=== PATIENT | male | born 1960 | race Caucasian/White ===

== ENCOUNTER 2020-06-19 14:36 | Outpatient (REF) | payer MEDICARE, MEDICAID, SELFPAY ==
[2020-06-19 15:07] LABS: ALT 20 U/L (16-63); AST 14 U/L (15-37); Albumin 3.1 g/dL (3.4-5.0); Alkaline Phosphatase 97 U/L (46-116); Anion Gap 5.2 mmol/L (3-11); BUN 10 mg/dL (7-18); Bilirubin, Total 0.1 mg/dL (0.2-1.0); CO2 31.8 mmol/L (21.0-32.0); CREATININE 0.7 mg/dL (0.70-1.30); Calcium 8.3 mg/dL (8.5-10.1); Chloride 103 mmol/L (98-107); Glucose 166 mg/dL (74-106); Potassium 4.4 mmol/L (3.5-5.1); Sodium 140 mmol/L (136-145); Total Protein 5.8 g/dL (6.4-8.2)
[2020-06-19 15:44] LABS: Hemoglobin A1C 6.4 % (<5.7)
== END 2020-06-19 14:37 | disposition home or self-care (01) ==
LOC: NCHCN 14:36
PROVIDERS: PCP Nurse Practitioner Family; Visit Provider Nurse Practitioner Family
DX: E11.9 Type 2 diabetes mellitus without complications (principal); I10 Essential (primary) hypertension
CPT/HCPCS: 80053; 83036

== ENCOUNTER 2020-06-21 08:24 | Outpatient (CLI) | payer MEDICARE, MEDICAID, SELFPAY ==
[2020-06-22 14:05] LABS: COVID-19 RT-PCR UVMMC Result Negative (Negative)
== END 2020-06-21 08:25 | disposition home or self-care (01) ==
PROVIDERS: PCP Nurse Practitioner Family; Visit Provider Nurse Practitioner Family
DX: Z20.822 Contact with and (suspected) exposure to COVID-19 (principal)
CPT/HCPCS: U0003; U0005

== ENCOUNTER 2020-06-21 14:22 | Outpatient (REF) | payer MEDICARE, MEDICAID, SELFPAY ==
[2020-06-21 16:07] LABS: Cholesterol 192 mg/dL (<200); HDL Cholesterol 33 mg/dL (40-60); Triglyceride 425 mg/dL (<150)
[2020-06-21 16:11] LABS: Bilirubin Negative (Negative); Blood Negative (Negative); Clarity Clear (Clear); Glucose Negative (Negative); Ketones Negative (Negative); Leukocyte Esterase Negative (Negative); Nitrite Negative (Negative); Urobilinogen 0.2 EU/dL (Up TO 0.2)
[2020-06-21 16:38] LABS: LDL CHOLESTEROL 117 mg/dL (<100)
[2020-06-21 18:24] LABS: Microalb ug/mg Crea 17.3 ug/mg Cr
== END 2020-06-21 14:23 | disposition home or self-care (01) ==
LOC: NCHCN 14:22
PROVIDERS: PCP Nurse Practitioner Family; Visit Provider Nurse Practitioner Family
DX: I10 Essential (primary) hypertension (principal); E78.5 Hyperlipidemia, unspecified; N39.46 Mixed incontinence
CPT/HCPCS: 80061; 83721; 81003; 82043; 82570

== ENCOUNTER 2020-07-31 08:04 | Observation (INO) | payer MEDICARE, MEDICAID, SELFPAY ==
[2020-07-31] VITALS (11 sets, daily range): BP systolic 138–213; BP diastolic 77–109; PULSE 60–99; RESP 14–18; TEMP 36.9–37.1; O2SAT 86–93
--- NOTE | 2020-07-31 08:15 | DI.CT_ITS ---
Exam(s) CT HEAD WO EXAM: CT HEAD WO CLINICAL HISTORY: ams. TECHNIQUE: Imaging Protocol: Axial computed tomography images with coronal and sagittal reformatted images were created and reviewed COMPARISON: No exams were available for comparison FINDINGS: There are no skull fractures nor fluid in the visualized paranasal sinuses. There is no evidence of intracranial hemorrhage, mass effect, or shift of midline structures. There are no extra-axial fluid collections. The ventricles are not enlarged or shifted and there is no blo od within the ventricular system nor within the basal cisterns. There is mural calcification in the right vertebral artery at the skull base. Also within the intrac avernous internal carotid arteries bilaterally. All of the intracranial arteries appears somewhat hy perdense. No obvious aneurysms IMPRESSION: No acute intracranial findings on this noninfused CT scan of the brain. Vascular calcifications the skull base as described above. Also hyperdense arteries in the brain, po ssibly within normal limits. Clinically indicated follow-up MRI/brain MRA can be performed. RADIATION DOSE DELIVERED: 923.01mGy.cm Total DLP DATA REPOSITORY: All CT scans at this facility are submitted to the National Radiology Data Registry (NRDR) Dose Index Registry (DIR) with the [employer] (A[employer]). RADIATION OPTIMIZATION: All CT scans at this facility use at least one of these dose optimization te chniques: automated exposure control; mA and/or kV adjustment per patient size (includes targeted exa ms where dose is matched to clinical indication); or iterative reconstruction.
--- NOTE | 2020-07-31 08:17 | W.ED.GENAD ---
Discharge Plan Disposition Patient Disposition: STILL A PATIENT Condition: Serious Discharge Details Clinical Impression: Suicidal ideations, Hallucinations, Hypertension Primary Care Provider: Sun Mobley ED Provider: Barrington Georges Home Meds and New Rx's Prescriptions: No Action simvastatin 20 mg tablet 20 mg PO DAILY RF: 0 lisinopril 10 mg tablet 20 mg PO DAILY RF: 0 cholecalciferol (vitamin D3) 25 mcg (1,000 unit) tablet 25 mcg PO DAILY RF: 0 Viibryd 10 mg tablet 40 mg PO DAILY RF: 0 oxybutynin chloride 5 mg Tablet 30 mg PO DAILY RF: 0 metformin 500 mg Tablet 500 mg PO BID RF: 0 hydrocortisone 1 % Cream 1 applic topical BID RF: 0 albuterol sulfate 90 mcg/actuation Hfa Aerosol Inhaler 2 puff INHALATION PRN PRNRF: 0 aripiprazole [Abilify] 2 mg Tablet 2 mg PO DAILY RF: 0 Medical Decision Making <LISA Carter - Last Filed: 07/31/20 15:18> 60-year-old gentleman, unknown to our facility, the pathological history of schizophrenia, hypertension, COPD, noncompliance since November presents with paranoia, hallucinations, vague suicidal ideations. Currently he has no acute concerns or complaints. Blood pressure upon arrival is quite hypertensive but he denies any chest pain, shortness of breath, headache, visual changes. He is agreeable to taking his oral lisinopril. Will give oral lisinopril, obtain CT imaging of his head, and obtain laboratory values for medical screening evaluation. Patient is currently agreeable to this plan cooperative. I have ordered CPSO, mental health evaluation, and safety plan while he is here in the ER. O2 sats were noted to be 88%, I do not know his baseline. He appears to be in no respiratory distress whatsoever and when instructed to take a deep breath his O2 sats did go to 92% on room air. Repeat blood pressures reveal his blood pressure is trending downward nicely at 161/90. CT imaging of his head read by radiology as nothing acute. Laboratory values are unremarkable for obvious emergent process, nothing that would inhibit a psychiatric evaluation. Covid is negative Mental health evaluation completed, given he lacks capacity for insight, mental health feels as though he needs to be emergency search for inpatient placement. In the [facility] I am unable to complete an emergency involuntary psychiatric form and thus I have discussed the case with Dr. Shepherd so she can be involved in the emergency certification process. Please see her note. Because the patient will be in a voluntary, he will remain in the ER for at least 48 hours before he can then be admitted to our facility while placement is being obtained. At 1430 I was made aware of the patient would like to leave. I went into exam room 5 and talked with the patient. He initially stated that he did not want any oral medications, he wanted to leave and simply live his life. I tried to verbally de-escalate the situation. Explained to him that after his mental health evaluation the plan was to help get him mental health care. He understands it is now agreeable to oral medications. I am unaware of any allergies that the patient may have. I will order oral Zyprexa 10 mg as well as 2 mg p.o. Ativan. Patient took these medications without difficulty Medical Records Medical records narrative: No previous records available. Imaging Data Radiologic Study: Attestation: I personally reviewed and interpreted this imaging study as follows: Imaging: CT Scan Radiologist's impression: Head CT. [No acute intracranial findings on this noninfused CT scan of the brain.] ? [Vascular calcifications the skull base as described above. Also hyperdense arteries in the brain, possibly within normal limits. Clinically indicated follow-up MRI/brain MRA can be performed] Lab Data Lab results reviewed: Yes I reviewed the patient's lab results. Labs: Laboratory Tests Range/Units 07/31/20 07/31/20 07/31/20 08:45 08:45 08:45 WBC (4.4-10.8) 10^3/uL 9.24 RBC (4.36-5.78) 10^6/uL 5.84 H Hgb (13.5-17.5) g/dL 16.9 Hct (40.0-50.0) % 50.8 H MCV (80-95) fL 87.0 MCH (27.0-33.0) pg 28.9 MCHC (32.0-36.0) % 33.3 RDW (11.8-14.1) % 12.8 Plt Count (130-400) 10^3/uL 324 MPV (8.0-11.0) fL 9.5 Immature Gran % 0.3 Neutrophils % 66.5 Lymphocytes % 22.2 Monocytes % 8.9 Eosinophils % 1.8 Basophils % 0.3 Nucleated RBC % % 0 Absolute Neutrophils (1.2-6.7) 10^3/uL 6.14 Absolute Lymphocytes (1.2-3.4) 10^3/uL 2.05 Absolute Monocytes (0.1-0.8) 10^3/uL 0.82 H Absolute Eosinophils (0.0-0.7) 10^3/uL 0.17 Absolute Basophils (0.0-0.2) 10^3/uL 0.03 Sodium (136-145) mmol/L 139 Potassium (3.5-5.1) mmol/L 3.5 Chloride (98-107) mmol/L 101 Carbon Dioxide (21.0-32.0) mmol/L 30.3 Anion Gap (3-11) mmol/L 7.7 BUN (7-18) mg/dL 7 Creatinine (0.70-1.30) mg/dL 0.9 Estimated GFR/1.73 m2 (mL/min/1.73m2) >= 60.00 Glucose (74-106) mg/dL 156 H Calcium (8.5-10.1) mg/dL 9.3 Total Bilirubin (0.2-1.0) mg/dL 0.6 AST (15-37) U/L 18 ALT (16-63) U/L 25 Alkaline Phosphatase (46-116) U/L 112 Total Protein (6.4-8.2) g/dL 7.5 Albumin (3.4-5.0) g/dL 3.8 TSH (0.36-3.74) uIU/mL 0.80 Urine Color (Yellow) Urine Clarity (Clear) Urine pH (5-8) Ur Specific [place] (1.005-1.025) Urine Protein (Negative) mg/dL Urine Ketones (Negative) mg/dL Urine Blood (Negative) Urine Nitrite (Negative) Urine Bilirubin (Negative) Urine Urobilinogen (Up TO 0.2) EU/dL Ur Leukocyte Esterase (Negative) Urine Glucose (Negative) mg/dL Salicylates (<2.8) mg/dL < 2.8 Urine Opiates Screen (Negative) Urine Methadone Screen (Negative) Acetaminophen (10-30) ug/mL < 2 Ur Barbiturates Screen (Negative) Ur Tricyclics Screen (Negative) Ur Amphetamines Screen (Negative) U Benzodiazepines Scrn (Negative) Urine Cocaine Screen (Negative) Ur THC Screen (Negative) Ethyl Alcohol (<3) mg/dL < 3.0 COVID-19 Source SARS-CoV-2 (PCR) (Negative) Range/Units 07/31/20 07/31/20 07/31/20 08:50 09:38 09:38 WBC (4.4-10.8) 10^3/uL RBC (4.36-5.78) 10^6/uL Hgb (13.5-17.5) g/dL Hct (40.0-50.0) % MCV (80-95) fL MCH (27.0-33.0) pg MCHC (32.0-36.0) % RDW (11.8-14.1) % Plt Count (130-400) 10^3/uL MPV (8.0-11.0) fL Immature Gran % Neutrophils % Lymphocytes % Monocytes % Eosinophils % Basophils % Nucleated RBC % % Absolute Neutrophils (1.2-6.7) 10^3/uL Absolute Lymphocytes (1.2-3.4) 10^3/uL Absolute Monocytes (0.1-0.8) 10^3/uL Absolute Eosinophils (0.0-0.7) 10^3/uL Absolute Basophils (0.0-0.2) 10^3/uL Sodium (136-145) mmol/L Potassium (3.5-5.1) mmol/L Chloride (98-107) mmol/L Carbon Dioxide (21.0-32.0) mmol/L Anion Gap (3-11) mmol/L BUN (7-18) mg/dL Creatinine (0.70-1.30) mg/dL Estimated GFR/1.73 m2 (mL/min/1.73m2) Glucose (74-106) mg/dL Calcium (8.5-10.1) mg/dL Total Bilirubin (0.2-1.0) mg/dL AST (15-37) U/L ALT (16-63) U/L Alkaline Phosphatase (46-116) U/L Total Protein (6.4-8.2) g/dL Albumin (3.4-5.0) g/dL TSH (0.36-3.74) uIU/mL Urine Color (Yellow) Yellow Urine Clarity (Clear) Clear Urine pH (5-8) 6.0 Ur Specific [place] (1.005-1.025) 1.020 Urine Protein (Negative) mg/dL Negative Urine Ketones (Negative) mg/dL Negative Urine Blood (Negative) Negative Urine Nitrite (Negative) Negative Urine Bilirubin (Negative) Negative Urine Urobilinogen (Up TO 0.2) EU/dL 1.0 H Ur Leukocyte Esterase (Negative) Negative Urine Glucose (Negative) mg/dL Negative Salicylates (<2.8) mg/dL Urine Opiates Screen (Negative) Negative Urine Methadone Screen (Negative) Negative Acetaminophen (10-30) ug/mL Ur Barbiturates Screen (Negative) Negative Ur Tricyclics Screen (Negative) Negative Ur Amphetamines Screen (Negative) Negative U Benzodiazepines Scrn (Negative) Negative Urine Cocaine Screen (Negative) Negative Ur THC Screen (Negative) Negative Ethyl Alcohol (<3) mg/dL COVID-19 Source Nasal/nares SARS-CoV-2 (PCR) (Negative) Negative <LISA Madrigal - Last Filed: 08/01/20 14:56> Care transition myself and Nikolas Manriquez PA-C. Please see his initial note regarding history, presentation and exam. In brief, patient is a 60-year-old gentleman who presented today with concern for hallucinations. These hallucinations were deemed to be unsafe and borderline suicidal. Patient was evaluated by mental health. They do not feel that patient is safe to be discharged home as he is speaking about jumping off of things and has a poor grasp on reality. Patient was given Ativan and Zyprexa. On the time I assume care, disposition pending Mental health reevaluated the patient. Psychiatrist advises Involuntary admission for safety reasons as well as suicidal ideation. Patient has been sleeping since assumption of care. At the end of my shift, care transitioned to Dr. Georges. Disposition pending. Resting comfortably. <Barrington Georges MD - Last Filed: 08/03/20 11:09> pt currently involuntary for decompensated schizophrenia awaiting placement. Currently sleeping but awakens easily no complaints currently, will continue to monitor until placement found pt slept most of the shift, did get up and walk around with steady gait. Vitals reviewed and is noted to have oxygen saturations in the high 80's most of the time, denies dyspnea or chest pain and is in no visible distress, is a chronic smoker so suspect copd. Nursing notes that on prior psych notes he has had home oxygen unclear how long he has been without this. patient remains stable, no complaints currently, was offered J and J vaccine and agrees to this. Unable to admit upstairs due to holding area already full, if a patient is transferred Nathan may be able to be admitted here until psych placement found. ECG Data Attestation: I personally reviewed and interpreted this ECG (s) as follows: Prior ECG tracings: not available for review Interpretation[facility], patient without dyspnea or chest pain sinus rhythm, rate of 65, right bundle branch block, no acute st elevations <Edward Macias, - Last Filed: 08/01/20 11:29> Patient was signed out to me by my colleague Barrington Georges pending reassessment by mental health and potential placement. Please refer to the patient's HPI, physical exam and assessment and plan. At time of signout it was noted that while the patient was sleeping at night he was slightly hypoxic in the 80s. He was placed on supplemental oxygen. The patient denies any shortness of breath or chest pain whatsoever. No cough or fever or chills. I did get a chest x-ray this morning and it is normal, additionally I got a VBG and this is also normal, pH normal, PCO2 level normal. When oxygen is off and the patient is awake the patient is at 88%. We did offer supplemental oxygen here again while the patient was awake and he refused it. Stating specifically that he does not want any extra oxygen or to be wakeful. He has used oxygen intermittently in the past, however he states that he is turned all of this equipment him and does not want any more currently. He shows no signs of hypercarbic encephalopathy clinically or on laboratory assessment. We did give the patient a breathing treatment but he is notably disinterested in this, and did not want to utilize it as he states he does not feel short of breath at all. I suspect the patient's low oxygen is his chronic baseline, and certainly not an example of an acute etiology. It is also not the cause of the patient's current psychiatric admission here. At this time patient remains medically stable, and does not show current clinical indication for emergent airway management, additionally the patient has refused other interventions and appears to demonstrate notable clear decision-making capabilities currently in regards to this topic specifically. FINDINGS: Limited exam due to patient body habitus, technique and poor pulmonary inflation.? The heart size is within normal limits.? The aorta is tortuous.? There is calcification at the aortic arch.? No area of consolidation or effusion is seen.? There is no? pneumothorax. IMPRESSION: Limited exam.? No acute pulmonary findings. <Kori Salazar DO - Last Filed: 08/02/20 20:33> 08/01/20 1500 --Case endorsed to continue to monitor while waiting placement. Likely no plans for placement today. 1830 --patient evaluated by Tanna at bedside and patient is still delusional. He has been cooperative. Andrez called requesting referral paperwork. 2300 --case endorsed to Dr. Soriano to continue to monitor overnight. 08/02/20 1500 --Case endorsed to continue to monitor while awaiting placement. Patient not admitted to the floor today as bed availability was minimal. 1700 --pt admitted to some anxiety. A dose of ativan and zyprexa ordered. 1900 --discussed with nursing kosher dietary service supervisor whether patient can be admitted to the floor as he has been here for approximately 58 hours without any incident. There is availability on the floor but as the ED is not busy at this time and there is another psychiatric patient on the floor with concern for potential interaction with another psychiatric patient, it was thought that it is best to keep pt in the ED at this time. Medical Records Medical records reviewed: Yes I reviewed the patient's medical records. <Nikolay Soriano MD - Last Filed: 08/03/20 06:54> Assumed care of the patient for the night monitor of August 01-. He remains calm and interactive with staff. Awaits final psychiatric disposition. I again assumed care of the patient for the evening shift of August 02-. He remained calm and interactive with staff overnight, continues to await final disposition. HPI <LISA Carter - Last Filed: 07/31/20 15:18> General Mode of arrival: ambulatory. Date/Time Provider Initiated Documentation: 07/31/20 08:16. Limitations to Documentation: no limitations. Information obtained by: patient. HPI Narrative: This is a 60-year-old male, past medical history that includes schizophrenia, hypertension, COPD presenting to the ER for evaluation. Patient is a poor historian and HPI is difficult to obtain. Of the HPI was obtained through Denae Gong because she owns the facility that the patient resides. Patient has been at the [facility] for approximately 1-1/2 months. She has noticed increasing abnormal behavior, visual and auditory hallucinations, believing that he is living under water, has recently been on a plane, and a plane was landing near his new facility. He has been talking about trying to fly off the [facility]. Patient admits to vague suicidal ideation but does not have a specific plan. He denies feeling homicidal. Denies any alcohol or drug use. Is a former smoker. Denies recent illness or trauma. Has no medical concerns or complaints at this time. He denies any headache, visual changes, neck pain, chest pain, shortness of breath, abdominal pain, nausea, vomiting, change in appetite, numbness, tingling, weakness. Apparently he has been noncompliant with all of his medications since sometime in November. Related Data Home Medications Medication Instructions Recorded Confirmed cholecalciferol (vitamin D3) 25 mcg PO DAILY 07/31/20 08/01/20 lisinopril 20 mg PO DAILY 07/31/20 08/01/20 simvastatin 20 mg PO DAILY 07/31/20 07/31/20 vilazodone [Viibryd] 40 mg PO DAILY 07/31/20 08/01/20 albuterol sulfate 2 puff INHALATION PRN PRN 08/01/20 08/01/20 aripiprazole [Abilify] 2 mg PO DAILY 08/01/20 08/01/20 hydrocortisone 1 applic TOPICAL BID 08/01/20 08/01/20 metformin 500 mg PO BID 08/01/20 08/01/20 oxybutynin chloride 30 mg PO DAILY 08/01/20 08/01/20 Allergies Allergy/AdvReac Type Severity Reaction Status Date / Time No Known Allergies Allergy Unverified 07/31/20 08:29 Review of Systems <LISA Carter - Last Filed: 07/31/20 15:18> Constitutional Constitutional: Denies fatigue, Denies fever(s), Denies headache(s) and Denies weakness Eyes Eyes: Denies change in vision ENT Ears, Nose, Mouth, and Throat: Denies headache(s) and Denies neck pain Cardiovascular Cardiovascular: Denies chest pain and Denies dyspnea Respiratory Respiratory: Denies cough and Denies dyspnea Gastrointestinal Gastrointestinal: Denies abdominal pain, Denies nausea and Denies vomiting Genitourinary Genitourinary: Denies dysuria Musculoskeletal Musculoskeletal: Denies back pain, Denies neck pain, Denies numbness and Denies tingling Integumentary/Breasts Skin/Breast: Denies rash Neurologic Neurologic: Denies headache(s), Denies numbness, Denies tingling and Denies weakness Psychiatric Psychiatric: Reports depression, Denies homicidal ideation and Reports suicidal ideation Endocrine Endocrine: Denies fatigue PFS <LISA Carter - Last Filed: 07/31/20 15:18> Medical History (Updated 08/01/20 @ 16:51 by Kori Salazar DO) HTN (hypertension) Schizophrenia Social History Smoking/Tobacco Use Status: Former Tobacco Use Smoking risk assessment performed?: Yes Alcohol Intake: former Drug use: Never Substance use type: does not use Do you feel safe at home: No (hallucinating re dying) Do you feel safe in your relationship?: Yes Exam <LISA Carter - Last Filed: 07/31/20 15:18> Const General: cooperative, healthy appearing and comfortable Orientation: alert, awake, oriented to person and oriented to place [facility] Head: normal to inspection, normocephalic and atraumatic General nose exam: external nose normal Face and sinus: normal facial exam Mouth: oral mucosae normal and moist mucous membranes Throat: posterior oropharynx normal Eyes General: appearance normal, both eyes and all related structures Alignment and Position: alignment normal Periorbital: periorbital findings normal Eyelids: eyelids normal Conjunctivae: conjunctivae normal Sclera: sclerae normal Cornea: corneas normal Pupils: PERRL EOM: EOM intact bilaterally Direct ophthalmoscopy: normal light reflex Neck Neck: normal visual inspection, full ROM, no meningeal signs, trachea midline, supple and nontender Resp Effort & Inspection: normal respiratory effort and able to speak in complete sentences Auscultation: clear to auscultation bilaterally Cardio Rate: regular rate Rhythm: regular rhythm GI Inspection: obesity Palpation: soft and nontender Back/Spine/Pelvis Back: No back tenderness Skin Rashes: no rashes Neuro General: patient alert, patient awake, oriented Patient Orientation: Person and Place, moves all extremities and no focal motor deficits Cranial Nerves: CN's II-XI intact bilaterally Cognition: abnormal cognition (Active visual hallucinations) Speech: speech normal Gait: normal gait Motor: muscle tone normal throughout Sensory Exam: no sensory deficits noted Extrem General: full ROM, capillary refill normal, no pedal edema and no calf tenderness Psych Appearance: grossly normal Mental Status: mental status grossly normal Speech and Movement: delayed speech Mood: paranoid Affect: blunted Attitude: cooperative Thought Process: perseverating (About planes and flying) Thought Content: hallucinations visual and suicidality (Vague, no plan) Insight: limited Judgment: limited Sign Out <LISA Carter - Last Filed: 07/31/20 15:18> Sign Out Data: Sign Out Comment: Noncompliant with medications since November. Resident at the [facility] for approximately 1-1/2 months, steadily declining, worse over the past few days. Both visual and auditory hallucinations, vague SI without a plan. Patient is an involuntary psychiatric placement. Took 2 mg p.o. Ativan and 10 of Zyprexa. Last updated by Konrad Manriquez PA at 07/31/20 15:19 Sign Out Comment: Care transitioned to Dr. Georges with disposition pending. Patient received zyprexa and ativan this afternoon. Has been sleeping. Referrals have been sent. Last updated by Mallika Bravo PA at 07/31/20 23:17 Sign Out Comment: schizophrenia history and noncompliant with meds since Nov, resident at [facility] for abouta month and steadily declining. Has visual and auditory hallucinations along with SI. Involuntary pending placement Last updated by Barrington Georges MD at 08/01/20 00:31 Sign Out Comment: Schizophrenia history, steadily declining, visual and auditory hallucinations with suicidal ideation. Currently involuntary psychiatric placement. Was stable throughout the day. Does have chronic mild hypoxemia. Currently medically stable. Chronically has refused oxygen, and does not want this going forward. VBG unremarkable, chest x-ray unremarkable. Currently medically stable, and appropriate for psychiatric facility disposition when available. Last updated by Edward Macias DO at 08/01/20 14:07 Sign Out Comment: Evaluated by mental health this evening. Remains delusional but has been cooperative. Pending psychiatric placement. Last updated by Kori Salazar DO at 08/01/20 22:41 Sign Out Comment: EE, awaits placement Last updated by Nikolay Soriano MD at 08/02/20 07:15 Sign Out Comment: Patient stable throughout the evening, patient also stable throughout the day. No complications, reassessed by mental health. Still pending placement. Last updated by Edward Macias DO at 08/02/20 15:22 Sign Out Comment: Holding in the ED at this time while awaiting placement. If ED bed availability becomes limited, can consider admission to the floor. Last updated by Kori Salazar DO at 08/02/20 21:48 Sign Out Comment: Awaits placement, may consider admission to floor today Last updated by Nikolay Soriano MD at 08/03/20 06:53 Sign Out Comment: Involuntary for decompensated schizophrenia and SI, awaiting placement. Check with nursing kosher dietary service supervisor later if psychiatric patient upstairs is transferred this patient may be able to be admitted. Last updated by Barrington Georges MD at 08/03/20 11:08
[2020-07-31] MEDS: Lisinopril 10 MG TAB PO (08:54)
[2020-07-31 09:11] LABS: Source Nasal/Nares
[2020-07-31 09:14] LABS: Abs Immature Grans 0.03 10^3/uL (0.0-0.06); Absolute Basophil Count 0.03 10^3/uL (0.0-0.2); Absolute Eosinophil Count 0.17 10^3/uL (0.0-0.7); Absolute Lymphocyte Count 2.05 10^3/uL (1.2-3.4); Absolute Monocyte Count 0.82 10^3/uL (0.1-0.8); Absolute Neutrophil Count 6.14 10^3/uL (1.2-6.7); Basophils % 0.3; Eosinophils % 1.8; HCT 50.8 % (40.0-50.0); HGB 16.9 g/dL (13.5-17.5); Immature Grans % 0.3; Lymphocytes % 22.2; MCH 28.9 pg (27.0-33.0); MCHC 33.3 % (32.0-36.0); MPV 9.5 fL (8.0-11.0); Monocytes % 8.9; Neutrophils % 66.5; Nucleated RBC 0 %; Platelet Count 324 10^3/uL (130-400); RBC 5.84 10^6/uL (4.36-5.78); RDW 12.8 % (11.8-14.1); RDW-SD 40.5 fL; WBC 9.24 10^3/uL (4.4-10.8)
[2020-07-31 09:40] LABS: ALT 25 U/L (16-63); AST 18 U/L (15-37); Albumin 3.8 g/dL (3.4-5.0); Alkaline Phosphatase 112 U/L (46-116); Anion Gap 7.7 mmol/L (3-11); BUN 7 mg/dL (7-18); Bilirubin, Total 0.6 mg/dL (0.2-1.0); CO2 30.3 mmol/L (21.0-32.0); CREATININE 0.9 mg/dL (0.70-1.30); Calcium 9.3 mg/dL (8.5-10.1); Chloride 101 mmol/L (98-107); Glucose 156 mg/dL (74-106); Potassium 3.5 mmol/L (3.5-5.1); Sodium 139 mmol/L (136-145); Total Protein 7.5 g/dL (6.4-8.2)
[2020-07-31 09:47] LABS: Bilirubin Negative (Negative); Blood Negative (Negative); Clarity Clear (Clear); Glucose Negative (Negative); Ketones Negative (Negative); Leukocyte Esterase Negative (Negative); Nitrite Negative (Negative)
[2020-07-31 09:52] LABS: ETHANOL BLOOD < 3.0 mg/dL (<3)
[2020-07-31 10:04] LABS: COVID-19 PCR Negative (Negative)
[2020-07-31 10:07] LABS: *AMPHETAMINES SCREEN URINE Negative (Negative); *BARBITURATES SCREEN URINE Negative (Negative); *BENZODIAZEPINES SCREEN URINE Negative (Negative); Cannabinoids THC Negative (Negative); Cocaine Screen,Urine Negative (Negative); METHADONE URINE SCREEN Negative (Negative); OPIATES URINE SCREEN Negative (Negative)
[2020-07-31 10:13] LABS: Tricyclic Antidepressants Negative (Negative)
[2020-07-31 10:20] LABS: Salicylate < 2.8 mg/dL (<2.8)
[2020-07-31 10:44] LABS: Acetaminophen < 2 ug/mL (10-30)
--- NOTE | 2020-07-31 12:14 | NUR.NOTE ---
Mental health arrived in room to examine patient. Nursing Note:
--- NOTE | 2020-07-31 13:15 | PDOC.MHCN_ITS ---
Date of service: 07/31/20 Time of Service: 12:20 Mental Health Crisis Note Presenting Issue How did you arrive at the ED and why did you come: Client was brought to [facility] ER by June [employer] [facility] [employer] [facility] staff due to concerns of delusions as well as auditory and visual hallucinations Precipitating Factors There are evidence of delusion present at this time. It is unclear if client is having SI or HI at this time. Client was unable to answer this question due to current mental state Disposition BEHAVIOR: Client presented as calm but struggled to get his words out. Client was also unable to make coherent and logical sentences. EYE CONTACT: Client maintained good eye contact MOOD: Client presented with anxious mood AFFECT: Client presented with flat affect APPETITE: Unable to access due to client's current presentation SLEEP(trouble falling/staying asleep: Unable to access due to client's current presentation Plan This clinician was unable do a through assessment due to client current presentation and mental state. Client will need to be reassessed by [facility]. Signature Clinician's Name/Title: Khushboo Bolaños / Emergency Services Clinician
--- NOTE | 2020-07-31 13:25 | CMSP_ITS ---
- If Service Date Differs Date of service: 07/31/20 Time of Service: 13:25 Care Management Safety Plan Status: Involuntary INVOLUNTARY FOR INPATIENT PSYCHIATRIC STABILIZATION. Safety plan has been established to meet the needs of the patient, and consideration of the care team, to adhere to patient goals, identify restrictions based on behavioral status, address nutrition, and determine allowed personal belongings, tools for hygiene and personal care. Determine level of activity including ambulation, level of supervision, visitors, and determine privileges based on behaviors and level of engagement by pt. A huddle is held at approximately 3:00 pm with Morenita, nursing supervisor insecticide, Konrad, ED provider, Opal, charge nurse, Jeanie, RN, Rajwinder, [facility], and SHELL Turner. SAFETY PLAN: 1. Will remain on SI/HI precautions. In Paper Clothes 2. Will remain in room under direct supervision of one-on-one staff at all times provided by CPSO, RASHIDA, COLLEGE TEACHER director corporate sales. 3. May have paper cups, plates, finger foods as well as a cardboard spoon with which to eat meals. 4. Follow [facility] Management of the Admitted Behavioral Health Patient policy. 5. Comfort bath system only. 6. No personal belongings. 7. Visitors: No visitors. 8. Activities: Coloring book, crayons, and other activities at RN discretion. No music tablet or television permitted at this time due to patient's persecutory delusions, hallucinations, and paranoia. 9. Bathroom privileges with escort. 10. Phone: None at this time. 11. Due to INVOLUNTARY status, patient is being held at [facility] by the Department of Mental Health ([facility]) until 2nd certification by [facility] Psychiatrist can be performed (within 24 hours). Staff will provide de-escalation support (CPI) as needed. If patient wishes to leave [facility], staff will contact [facility] Crisis Screener ([phone]) and On-Call Residency Program Coordinator ([phone]) as soon as possible. In the event of elopement, notify [place] State Police ([phone]). Patient is currently involuntarily at [facility]. [facility] Frontline Senior Clinical Data Manager will continue seeking placement. Please contact the Press Setter Residency Program Coordinator ([phone]) for any needed changes to Safety Plan. Safety plan has been provided to interdepartmental care team. Patient will be transported by tank wagon driver at time of discharge.
--- NOTE | 2020-07-31 13:25 | PDOC.CMSAFED ---
- If Service Date Differs Date of service: 07/31/20 Time of Service: 13:25 Care Management Safety Plan Status: Involuntary INVOLUNTARY FOR INPATIENT PSYCHIATRIC STABILIZATION. Safety plan has been established to meet the needs of the patient, and consideration of the care team, to adhere to patient goals, identify restrictions based on behavioral status, address nutrition, and determine allowed personal belongings, tools for hygiene and personal care. Determine level of activity including ambulation, level of supervision, visitors, and determine privileges based on behaviors and level of engagement by pt. A huddle is held at approximately 3:00 pm with Morenita, nursing supervisor meter repair shop, Konrad, ED provider, Opal, charge nurse, Jeanie, RN, Rajwinder, [facility], and SHELL Turner. SAFETY PLAN: 1. Will remain on SI/HI precautions. In Paper Clothes 2. Will remain in room under direct supervision of one-on-one staff at all times provided by CPSO, RASHIDA, PANTS MAKER preparation supervisor freezing. 3. May have paper cups, plates, finger foods as well as a cardboard spoon with which to eat meals. 4. Follow [facility] Management of the Admitted Behavioral Health Patient policy. 5. Comfort bath system only. 6. No personal belongings. 7. Visitors: No visitors. 8. Activities: Coloring book, crayons, and other activities at RN discretion. No music tablet or television permitted at this time due to patient's persecutory delusions, hallucinations, and paranoia. 9. Bathroom privileges with escort. 10. Phone: None at this time. 11. Due to INVOLUNTARY status, patient is being held at [facility] by the Department of Mental Health ([facility]) until 2nd certification by [facility] Psychiatrist can be performed (within 24 hours). Staff will provide de-escalation support (CPI) as needed. If patient wishes to leave [facility], staff will contact [facility] Crisis Screener ([phone]) and On-Call Farmworker Dairy ([phone]) as soon as possible. In the event of elopement, notify [place] State Police ([phone]). Patient is currently involuntarily at [facility]. [facility] Frontline Occupational Therapy Department Chair will continue seeking placement. Please contact the Western Felt Hat Blocker Farmworker Dairy ([phone]) for any needed changes to Safety Plan. Safety plan has been provided to interdepartmental care team. Patient will be transported by civil division deputy sheriff at time of discharge.
[2020-07-31] MEDS: LORazepam 1 MG TAB PO ×2 (14:46→14:57)
[2020-07-31] MEDS: OLANZapine 10 MG TAB PO (14:57)
--- NOTE | 2020-07-31 15:09 | PDOC.MHCN ---
<Olimpia Wm - Last Filed: 07/31/20 15:28> Date of service: 07/31/20 Time of Service: 14:10 Mental Health Crisis Note <Olimpia Gomezdeonan - Last Filed: 07/31/20 15:28> Presenting Issue How did you arrive at the ED and why did you come: Client was brought to the ED by staff of [facility] after concerning behaviors and reported hallucinations. Client had been found to have pills stashed in his pocket and had been wandering the 3rd floor balcony reporting to staff I need to fly away and make this stop Precipitating Factors When asked about or HI, client reports It's too late for that, there are no roads to go on. Client is delusional and reports that he arrived at the ED after staff told him it was time to head out on a plane. Client reports that he thinks we are in [place] and they are going to kill us all. Disposition BEHAVIOR: Client is cooperative when speaking with this advertising copywriter. EYE CONTACT: Client makes minimal eye contact with this advertising copywriter, but looks at another staff member in the room when answering this writers questions. MOOD: Client mood is depressed AFFECT: Clients affect is flat, but at times becomes tearful. APPETITE: Client reported last night to this advertising copywriter that he had a poor appetite. SLEEP(trouble falling/staying asleep: Staff at [facility] reported that client did not sleep all night. Plan Client is unwilling to accept voluntary treatment, this advertising copywriter wrote an EE due to clients poor insight and judgement. Client will remain on EE status at [facility] until second cert is done. Hospitals will be called to find placement. [facility] was notified of clients status. Signature Clinician's Name/Title: Olimpia Burk [facility] Emergency Clinician
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
--- NOTE | 2020-07-31 21:13 | NUR.NOTE ---
Nursing Note: i asked if he need to go to bathroom when he woke up and sat on edge of bed ne said no next thing i know he was peeing on floor
[2020-08-01] VITALS (8 sets, daily range): BP systolic 114–126; BP diastolic 69–76; PULSE 47–83; RESP 1–20; TEMP 36.6–37.2; O2SAT 77–96
[2020-08-01] MEDS: Acetaminophen 500 MG TAB 1000 MG PO (04:18)
--- NOTE | 2020-08-01 04:21 | NUR.NOTE ---
0420 patient to shower with R.N.Nursing Note:
--- NOTE | 2020-08-01 04:38 | NUR.NOTE ---
5780 patient back from shower in room.Nursing Note:
--- NOTE | 2020-08-01 05:45 | RT.EKG_ITS ---
APPROVED REPORT Exam: Resting ECG Patient Location: E HR:65 bpm ECG Measurements Heart Rate 65 AXIS PA 154 P 22 QRSd 160 QRS 13 QT 414 T -49 QTc 431 Conclusion Sinus rhythm...normal P axis, V-rate 60- 99 Right bundle branch block...QRSd>120, terminal axis(90,270)
[2020-08-01] MEDS: Albuterol HFA 8 GM 60 PUFF INH IH (06:21)
--- NOTE | 2020-08-01 10:15 | DI.RAD_ITS ---
Exam(s) XR PORTABLE CHEST AP EXAM: XR PORTABLE CHEST AP CLINICAL HISTORY: mildly hypoxic. suspect chronic copd TECHNIQUE: 2D digital imaging was performed. COMPARISON: No exams were available for comparison FINDINGS: Limited exam due to patient body habitus, technique and poor pulmonary inflation. The heart size is within normal limits. The aorta is tortuous. There is calcification at the aortic arch. No area of consolidation or effusion is seen. There is no pneumothorax. IMPRESSION: Limited exam. No acute pulmonary findings. DATA REPOSITORY: RADIATION DOSE DELIVERED:
[2020-08-01] MEDS: predniSONE 40 MG, predniSONE 10 MG 50 MG PO (10:46)
[2020-08-01] MEDS: ARIPiprazole 2 MG TAB PO (10:46)
[2020-08-01 10:54] LABS: BE (Venous) 6 mmol/L (-2-3); HCO3 (Venous) 31 mmol/L (23-28); O2 Sat (Venous) 91 %; TCO2 (Venous) 27 mmol/L (24-29); pCO2 (Venous) 51 mmHg (41-51); pO2 (Venous) 60 mmHg
[2020-08-01] MEDS: Albuterol/Ipratropium 3 ML UPD VIAL 6 ML UPD (11:23)
--- NOTE | 2020-08-01 11:31 | RESPIRATORY ---
08/01/20 -Pt here in ED for Psych. I was approached by Dr. Macias stating that Pt was having desaturations down to 77%while sleeping. There was a discussion about if a Nocturnal Oximetry would be appropriate at this time to qualify him for Nocturnal O2. I explained typically, we cannot qualify a Pt for any home O2 in the ED setting as Pt's are considered not a baseline. There was a small group that gathered to discuss the next step in care for this Pt and what next steps would be appropriate . It was determined to medical clear him first. CXR, VBG & Upd's x2 was done. Pt's SPO2 was found to 87% on RA . Pt states I do not want to use oxygen as it's wasteful and doesn't work anyways. I use to have it through [facility] and turned it back in as it wasn't working. This conversation was relayed to Dr. Macias.
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
--- NOTE | 2020-08-01 14:31 | CMSP_ITS ---
- If Service Date Differs Date of service: 08/01/20 Time of Service: 14:31 Care Management Safety Plan Status: Involuntary INVOLUNTARY FOR INPATIENT PSYCHIATRIC STABILIZATION. Safety plan has been established to meet the needs of the patient, and consideration of the care team, to adhere to patient goals, identify restrictions based on behavioral status, address nutrition, and determine allowed personal belongings, tools for hygiene and personal care. Determine level of activity including ambulation, level of supervision, visitors, and determine privileges based on behaviors and level of engagement by pt. A huddle is held at approximately 1:00 pm with Morenita, nursing stitching department supervisor, Dr. Macias, ED provider, Renae, charge nurse, Marta, RN, Дмитрий, Director of ED, Rajwinder [facility], and SHELL Turner. SAFETY PLAN: 1. Will remain on SI/HI precautions. In Paper Clothes 2. Will remain in room under direct supervision of one-on-one staff at all times provided by CPSO, COOLER SERVICE SUPERVISOR, CASINO CASHIER MANAGER poultry processor. 3. May have paper cups, plates, finger foods as well as a cardboard spoon with which to eat meals. 4. Follow [facility] Management of the Admitted Behavioral Health Patient policy. 5. Personal care: May shower at RN discretion with supervision and security presence. 6. No personal belongings. 7. Visitors: No visitors. 8. Activities: Coloring book, crayons, and other activities at RN discretion. No music tablet or television permitted at this time due to patient's persecutory delusions, hallucinations, and paranoia. 9. Bathroom privileges with escort. 10. Phone: None at this time. 11. Due to INVOLUNTARY status, patient is being held at [facility] by the Department of Mental Health ([facility]) until 2nd certification by [facility] Psychiatrist can be performed (within 24 hours). Staff will provide de-escalation support (CPI) as needed. If patient wishes to leave [facility], staff will contact [facility] Crisis Screener ([phone]) and On-Call Kaiwhakahaere ([phone]) as soon as possible. In the event of elopement, notify [facility] Police ([phone]). Patient is currently involuntarily at [facility]. [facility] Frontline Candle Cutter will continue seeking placement. Please contact the Blast Furnace Supervisor Kaiwhakahaere ) for any needed changes to Safety Plan. Safety plan has been provided to interdepartmental care team. Patient will be transported by clay preparation supervisor at time of discharge.
--- NOTE | 2020-08-01 14:31 | PDOC.CMSAFED ---
- If Service Date Differs Date of service: 08/01/20 Time of Service: 14:31 Care Management Safety Plan Status: Involuntary INVOLUNTARY FOR INPATIENT PSYCHIATRIC STABILIZATION. Safety plan has been established to meet the needs of the patient, and consideration of the care team, to adhere to patient goals, identify restrictions based on behavioral status, address nutrition, and determine allowed personal belongings, tools for hygiene and personal care. Determine level of activity including ambulation, level of supervision, visitors, and determine privileges based on behaviors and level of engagement by pt. A huddle is held at approximately 1:00 pm with Morenita, nursing lift supervisor, Dr. Macias, ED provider, Renae, charge nurse, Marta, RN, Дмитрий, Director of ED, Rajwinder [facility], and SHELL Turner. SAFETY PLAN: 1. Will remain on SI/HI precautions. In Paper Clothes 2. Will remain in room under direct supervision of one-on-one staff at all times provided by CPSO, COUNSELOR CAMP, SENIOR JAVA WEB DEVELOPER skidder operator. 3. May have paper cups, plates, finger foods as well as a cardboard spoon with which to eat meals. 4. Follow [facility] Management of the Admitted Behavioral Health Patient policy. 5. Personal care: May shower at RN discretion with supervision and security presence. 6. No personal belongings. 7. Visitors: No visitors. 8. Activities: Coloring book, crayons, and other activities at RN discretion. No music tablet or television permitted at this time due to patient's persecutory delusions, hallucinations, and paranoia. 9. Bathroom privileges with escort. 10. Phone: None at this time. 11. Due to INVOLUNTARY status, patient is being held at [facility] by the Department of Mental Health ([facility]) until 2nd certification by [facility] Psychiatrist can be performed (within 24 hours). Staff will provide de-escalation support (CPI) as needed. If patient wishes to leave [facility], staff will contact [facility] Crisis Screener ([phone]) and On-Call Sole Scraper ([phone]) as soon as possible. In the event of elopement, notify [facility] Police ([phone]). Patient is currently involuntarily at [facility]. [facility] Frontline Artist'S Model will continue seeking placement. Please contact the Invasive Cardiologist Sole Scraper ([phone]) for any needed changes to Safety Plan. Safety plan has been provided to interdepartmental care team. Patient will be transported by retrieval specialist at time of discharge.
--- NOTE | 2020-08-01 15:35 | CMPROGNOTE_ITS ---
- If Service Date Differs Date of service: 08/01/20 Time of Service: 15:35 Care Management Progress Note S/O: Nathan remains at [facility] on involuntary status awaiting a psychiatric placement. He continues to be calm and cooperative but still shows signs of delusions. His O2 level reportedly saturated down into the low to mid 80s this morning. Nathan was started on O2 through a nasal cannula but he could not tolerate it and removed it from his face. CM will continue to follow. A: Nathan is a 60 year old male who presents in the ED for suicidal ideation, hallucinations, and hypertension. P: [facility] to [facility] and [facility] for review yesterday. Nathan will remain at [facility] on involuntary status while [facility] continues to seek a placement for him. CM will continue to follow.
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
[2020-08-02 05:39] VITALS: BP 109/66; PULSE 61; RESP 18; O2SAT 90
[2020-08-02 09:05] VITALS: BP 137/75; PULSE 66; RESP 16; TEMP 36.8; O2SAT 88
[2020-08-02] MEDS: Acetaminophen 500 MG TAB 1000 MG PO (09:17)
[2020-08-02] MEDS: Lisinopril 20 MG TAB PO (09:17)
[2020-08-02] MEDS: ARIPiprazole 2 MG TAB PO (09:17)
--- NOTE | 2020-08-02 09:23 | NUR.NOTE ---
Nursing Note: At the request of NICHOLAS Truong I faxed to [facility] the facesheet, 2nd cert, Med Rec, provider note, EKG, labs, CT and xray reports, MH notes and most recent life care planner note. Arielle Moreira
--- NOTE | 2020-08-02 11:37 | NUR.NOTE ---
Nursing Note: Macrina Beltran called from [facility] to say that they had the patient's belongings. This included at this time 2 bags of clothing and a walker. She is going to hold these items until she has the disposition of the patient. Arielle Moreira
--- NOTE | 2020-08-02 12:29 | PDOC.MHCN ---
Date of service: 08/02/20 Time of Service: 10:00 Mental Health Crisis Note Presenting Issue How did you arrive at the ED and why did you come: Client arrived to [facility] ED due to concerns of delusions, VH and AH. Precipitating Factors Client denied SI/HI at this time. Disposition BEHAVIOR: Client presented as engaging and alert and oriented to time and place during this assessment. EYE CONTACT: Client maintained minimal eye contact MOOD: Client presented with depressed and a slightly irritable mood. AFFECT: Client presented with flat affect APPETITE: Client reported his appetite was fine SLEEP(trouble falling/staying asleep: Client reported he had been sleeping too much because there was nothing else to do around here Plan Client will continue to await at [facility] for in-patient treatment. Referrals have been made to , [facility] and [facility] and they are all pending review and bed availability at this time. Signature Clinician's Name/Title: Khushboo Bolaños / Emergency Services Clinician
[2020-08-02] MEDS: LORazepam 1 MG TAB PO (15:45)
[2020-08-02] MEDS: OLANZapine 10 MG TAB PO (15:57)
[2020-08-02 17:24] VITALS: BP 132/69; PULSE 60; RESP 16; TEMP 36.5; O2SAT 91
--- NOTE | 2020-08-02 17:45 | PDOC.CMSAFED ---
- If Service Date Differs Date of service: 08/02/20 Time of Service: 17:45 Care Management Safety Plan Status: Involuntary INVOLUNTARY FOR INPATIENT PSYCHIATRIC STABILIZATION. Safety plan has been established to meet the needs of the patient, and consideration of the care team, to adhere to patient goals, identify restrictions based on behavioral status, address nutrition, and determine allowed personal belongings, tools for hygiene and personal care. Determine level of activity including ambulation, level of supervision, visitors, and determine privileges based on behaviors and level of engagement by pt. SAFETY PLAN: 1. Will remain on SI/HI precautions. In Paper Clothes 2. Will remain in room under direct supervision of one-on-one staff at all times provided by CPSO, BUSINESS ACCOUNT LEADER, MANAGER RESEARCH horticultural farm manager. 3. May have paper cups, plates, finger foods as well as a cardboard spoon with which to eat meals. 4. Follow [facility] Management of the Admitted Behavioral Health Patient policy. 5. Personal care: May shower at RN discretion with supervision and security presence. 6. No personal belongings. 7. Visitors: No visitors. 8. Activities: Coloring book, crayons, and other activities at RN discretion. No music tablet or television permitted at this time due to patient's persecutory delusions, hallucinations, and paranoia. 9. Bathroom privileges with escort. 10. Phone: None at this time. 11. Due to INVOLUNTARY status, patient is being held at [facility] by the Department of Mental Health ([facility]) until 2nd certification by [facility] Psychiatrist can be performed (within 24 hours). Staff will provide de-escalation support (CPI) as needed. If patient wishes to leave [facility], staff will contact [facility] Crisis Screener ([phone]) and On-Call Landscape Account Manager ([phone]) as soon as possible. In the event of elopement, notify [place] [employer] ([phone]). Patient is currently involuntarily at [facility]. [facility] Frontline Learning Specialist will continue seeking placement. Please contact the [employer] Landscape Account Manager ([phone]) for any needed changes to Safety Plan. Safety plan has been provided to interdepartmental care team. Patient will be transported by [facility] at time of discharge.
--- NOTE | 2020-08-02 17:46 | CMPROGNOTE_ITS ---
- If Service Date Differs Date of service: 08/02/20 Time of Service: 17:46 Care Management Progress Note S/O: Nathan remains at [facility] on involuntary status awaiting a psychiatric placement. He is sitting on the side of the bed eating his dinner when CM comes to meet with him. He shares with me that he was listed as a dog with the social security administration for many years. He also reports that he has three times and is back to life. Nathan talks about his experience at the [facility] 10 years ago and says he does not wish to go back there because he wasn't very nice to staff while there and has been banned. Nathan remains calm and cooperative but clearly continues to experience delusions. CM will continue to follow. A: Nathan is a 60 year old male who presents in the ED for suicidal ideation, hallucinations, and hypertension. P: Referrals were sent to [facility] and [facility] for review. Nathan will remain at [facility] on involuntary status while [facility] continues to seek a placement for him. CM will continue to follow.
--- NOTE | 2020-08-02 17:47 | NUR.NOTE ---
eating dinner and 1:1 sitter maintaining constant supervision. appears in good mood and is cooperative. speech clear and affect normal at this time
--- NOTE | 2020-08-02 20:03 | NUR.NOTE ---
report given to MICHELLE Lua
--- NOTE | 2020-08-02 20:45 | PDOC.MHCN ---
Date of service: 08/02/20 Time of Service: 20:46 Mental Health Crisis Note Presenting Issue How did you arrive at the ED and why did you come: Steven is still in ER under EE status. Precipitating Factors Clt admits to active SI with psychotic command hallucinations. Clt said that the hospital wisely is keeping cutting implements away from him. Hallucinations tell clt to get up and kill himself. Disposition BEHAVIOR: Angry toward his situation but not at people trying to help him. Clt voices frustration about being mentally ill and having those voices constantly in his head. EYE CONTACT: Steven's eye contact was good and appeared more alert. MOOD: Sullen, frustrated, and angry over his situation AFFECT: Sad APPETITE: Good SLEEP(trouble falling/staying asleep: I sleep too much Plan Cloctvaia will continue to stay on EE status because of command hallucinations telling clt to kill self. Hopefully, steven will be treated for his psychotic condition once he arrives at a psychiatric facility.
[2020-08-03 06:04] VITALS: BP 149/83; PULSE 62; RESP 20; O2SAT 88
--- NOTE | 2020-08-03 06:05 | NUR.NOTE ---
Nursing Note: patient declines shower this am. Patient requested food when tray arrives.
--- NOTE | 2020-08-03 06:59 | NUR.NOTE ---
Nursing Note: patient discussing mom, brother and dad who are all . Patient reports having two dreams where he was given the pentalty. Patient reports being a psychic. Expresses does not want to go back to [facility] because psychiatrist told him, Why are you even here? Your mom is still alive. You are a complete waste of space and nobody can help you.
[2020-08-03] MEDS: Lisinopril 20 MG TAB PO (08:45)
[2020-08-03] MEDS: ARIPiprazole 2 MG TAB PO (08:45)
--- NOTE | 2020-08-03 09:41 | PDOC.MHCN ---
Date of service: 08/03/20 Time of Service: 09:41 Mental Health Crisis Note Presenting Issue How did you arrive at the ED and why did you come: Pt was [facility] providers and was placed on EE status due to diminished mental health. Precipitating Factors Pt denied SI and HI today. Pt still presents as disrupted thoughts. Disposition BEHAVIOR: Reported by staff that he accepted oral Zyprexa yesterday. He is cooperative and reported that he is here to assess his breathing and mind. EYE CONTACT: good MOOD: depressed and tired. AFFECT: flat APPETITE: Pt reported he already ate breakfast. SLEEP(trouble falling/staying asleep: Pt was a sleep when this clinician arrived. He woke easily but wanted to go back to sleep. Plan Pt will remain on EE status and remain at [facility] pending admission. He will be assessed twice daily by [facility] who will also seek placement. Signature Clinician's Name/Title: Rajwinder Flores MS, [facility] Emergency Services Clinician, [facility]
[2020-08-03 10:57] VITALS: BP 154/95; PULSE 67; RESP 18; O2SAT 89
[2020-08-03] MEDS: LORazepam 1 MG TAB 2 MG PO (15:00)
[2020-08-03] MEDS: Acetaminophen 500 MG TAB 1000 MG PO (15:00)
--- NOTE | 2020-08-03 17:56 | PDOC.CMSAFED ---
- If Service Date Differs Date of service: 08/03/20 Time of Service: 17:56 Care Management Safety Plan Status: Involuntary INVOLUNTARY FOR INPATIENT PSYCHIATRIC STABILIZATION. Safety plan has been established to meet the needs of the patient, and consideration of the care team, to adhere to patient goals, identify restrictions based on behavioral status, address nutrition, and determine allowed personal belongings, tools for hygiene and personal care. Determine level of activity including ambulation, level of supervision, visitors, and determine privileges based on behaviors and level of engagement by pt. SAFETY PLAN: 1. Will remain on SI/HI precautions. In Paper Clothes 2. Will remain in room under direct supervision of one-on-one staff at all times provided by CPSO, METAL PATTERNMAKER APPRENTICE, MEDICAL TERMINOLOGIST senior media planner. 3. May have paper cups, plates, finger foods as well as a cardboard spoon with which to eat meals. 4. Follow [facility] Management of the Admitted Behavioral Health Patient policy. 5. Personal care: May shower at RN discretion with supervision and security presence. 6. No personal belongings. 7. Visitors: No visitors. 8. Activities: Coloring book, crayons, and other activities at RN discretion. No music tablet or television permitted at this time due to patient's persecutory delusions, hallucinations, and paranoia. 9. Bathroom privileges with escort. 10. Phone: None at this time. 11. Due to INVOLUNTARY status, patient is being held at [facility] by the Department of Mental Health ([facility]) until 2nd certification by [facility] Psychiatrist can be performed (within 24 hours). Staff will provide de-escalation support (CPI) as needed. If patient wishes to leave [facility], staff will contact [facility] Crisis Screener ([phone]) and On-Call Restaurant Worker ([phone]) as soon as possible. In the event of elopement, notify [place] [employer] ([phone]). Patient is currently involuntarily at [facility]. [facility] Frontline Academic Support Assistant will continue seeking placement. Please contact the Accounting Administrative Assistant Restaurant Worker ([phone]) for any needed changes to Safety Plan. Safety plan has been provided to interdepartmental care team. Patient will be transported by [employer] at time of discharge.
--- NOTE | 2020-08-03 17:58 | CMPROGNOTE_ITS ---
- If Service Date Differs Date of service: 08/03/20 Time of Service: 17:58 Care Management Progress Note S/O: Nathan remains at [facility] on involuntary status awaiting a psychiatric placement. He is sleeping when CM comes to meet with him. Per report, he continues to experience delusions and hallucinations. He is also reporting suicidal ideation. CM will continue to follow. A: Nathan is a 60 year old male who presents in the ED for suicidal ideation, hallucinations, and hypertension. P: Referrals were sent to [facility], [facility], [facility], and [facility] for review. [facility] has declined Nathan, [facility] is currently full, and the [facility] have yet to make a decision. Nathan will, therefore, remain at [facility] on involuntary status while [facility] continues to seek a placement for him. CM will continue to follow.
--- NOTE | 2020-08-03 17:58 | PDOC.ERCMPRO ---
- If Service Date Differs Date of service: 08/03/20 Time of Service: 17:58 Care Management Progress Note S/O: Nathan remains at [facility] on involuntary status awaiting a psychiatric placement. He is sleeping when CM comes to meet with him. Per report, he continues to experience delusions and hallucinations. He is also reporting suicidal ideation. CM will continue to follow. A: Nathan is a 60 year old male who presents in the ED for suicidal ideation, hallucinations, and hypertension. P: Referrals were sent to [facility], [facility]Note 3], [facility], and [facility] for review[facility] has declined Nathan, [facility] is currently full, and the [facility] have yet to make a decision. Nathan will, therefore, remain at [facility] on involuntary status while [facility] continues to seek a placement for him. CM will continue to follow.
[2020-08-03 19:30] VITALS: BP 113/69; PULSE 70; RESP 18; TEMP 37.2; O2SAT 89
[2020-08-03] MEDS: Simvastatin 20 MG TAB PO (22:19)
[2020-08-03] MEDS: Insulin Aspart 300 UNITS/3 ML PEN SC (22:19)
--- NOTE | 2020-08-03 22:52 | PDOC.MHCN ---
Date of service: 08/03/20 Time of Service: 22:53 Mental Health Crisis Note Presenting Issue How did you arrive at the ED and why did you come: Steven is currentlly under EE status. Precipitating Factors Cloctavia is still highly delusional. Steven appeared a bit more lucid today but as conversation went on, clt confirmed he was still having command hallucinations regarding kill self. He would go on tangents regarding whether his mother was alive or not with the possibility of getting some insurance settlement if she passed on. Disposition BEHAVIOR: Steven has been cooperative. EYE CONTACT: Eye contact was fair. MOOD: Mood was constant, stable and calm AFFECT: Flat APPETITE: Good SLEEP(trouble falling/staying asleep: Excessive Plan Clt because he still have command hallucinations with SI, he will stay under EE status.
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
[2020-08-04 01:30] VITALS: BP 134/72; PULSE 68; RESP 17; TEMP 36.6; O2SAT 90
--- NOTE | 2020-08-04 02:09 | NUR.NOTE ---
Nursing Note: pt saying we were going to throw him out on the street cpso explained we are trying to find you placement
[2020-08-04 08:07] VITALS: BP 139/72; PULSE 65; RESP 20; TEMP 36.9; O2SAT 94
[2020-08-04] MEDS: Cholecalciferol (Vitamin D3) 1,000 UNIT TAB 1000 UNITS PO (08:53)
[2020-08-04] MEDS: ARIPiprazole 2 MG TAB PO (08:53)
[2020-08-04] MEDS: Acetaminophen 325 MG TAB 650 MG PO (08:53)
[2020-08-04] MEDS: Lisinopril 20 MG TAB PO (08:54)
[2020-08-04] MEDS: Albuterol HFA 8 GM 60 PUFF INH IH (09:31)
--- NOTE | 2020-08-04 11:51 | W.PM.PROGNOT ---
Date of Service Date of service: 08/04/20 Time of Service: 11:51 Assessment and Plan Assessment and plan (1) Suicidal ideations: Start date: 08/04/20 Start time: 11:59 Status: Acute Assessment and plan: Await a psychiatric bed in involuntary status with CPSO and suicide precautions (2) Hallucinations: Start date: 08/04/20 Start time: 11:59 Status: Acute Assessment and plan: Part of psychosis. The patient does have underlying diagnosis of schizophrenia. Not having at this time. (3) HTN (hypertension): Start date: 08/04/20 Start time: 11:59 Status: Chronic Assessment and plan: continue lisinopril (4) COPD (chronic obstructive pulmonary disease): Start date: 08/04/20 Start time: 11:59 Status: Chronic Assessment and plan: not in acute exacerbation. He does not usually wear oxygen will do exercise oximetry d/c oxygen, as along as he is above 89% he does not require oxygen as he does not wear it at CI (5) Obstructive sleep apnea: Start date: 08/04/20 Start time: 12:12 Status: Chronic Assessment and plan: The patient states he does not use CPAP at home We will provide O2 here. (6) DVT prophylaxis: Start date: 08/04/20 Start time: 12:16 Status: Acute Assessment and plan: SC lovenox (7) Discharge planning issues: Start date: 08/04/20 Start time: 12:16 Status: Acute Assessment and plan: Full code Obs awaiting placement discussed with Dr. Sampson. Subjective Subjective Patient reports: other Interval history since last seen: Patient does not usually take oxygen, Will do ambulatory pulse ox this afternoon involuntary waiting for bed, at this time. 1:1. Denies CP, SOB. Exam Narrative Exam Narrative: General: Obese Middle-aged male Sitting up in bed, awake alert and oriented, denies, on oxygen but does not usually wear it. Will do ambulatory pulse ox Neurological: A&ox3, no focal deficits Psychiatric:States no SI today Skin: Visible skin intact HEENT: Atraumatic, normocephalic, EOMI, MMM, clear oropharynx, no lymphadenopathy, goiter or JVD, large neck diameter Cardiovascular: RRR, no m/r/g Lungs: LSC, denies CP Gastrointestinal: soft, nontender, nondistended Extremities: +1 pitting edema at B ankles, trace pedal pulses B Objective Last Vital Signs Temp 36.9 C 08/04/20 08:07 Pulse 65 08/04/20 08:07 Resp 20 08/04/20 08:07 BP 139/72 08/04/20 08:07 Pulse Ox 94 08/04/20 08:07
--- NOTE | 2020-08-04 12:28 | W.INDIABCONS ---
Date of service: 08/04/20 Time of Service: 12:28 Diabetes Inpatient Consult DESCRIPTION/ASSESSMENT: 60 year old male admitted from [facility] with mental health crisis. PMH: obesity, DM2, COPD. Most recent A1c: 6.4% (06/19/2020) indicating well controlled DM. Home DM meds: metformin 500 mg BID. Not at nutritional risk. INTERVENTION: Education not needed at this time as at goal for glycemic goal with current home DM meds PLAN: continue current meal plan, will monitor labs, po intake and wieght. Time Spent in Nutritional Counseling and Treatment: 0
--- NOTE | 2020-08-04 14:14 | PDOC.MHCN_ITS ---
Date of service: 08/04/20 Time of Service: 12:15 Mental Health Crisis Note Presenting Issue How did you arrive at the ED and why did you come: Client has been at [facility] on EE status since 07/31/2020. Client was brought in due to concerns of delusional thinking with visual and auditory hallucinations. Client is currently waiting for placement for in-patient treatment. Precipitating Factors Client denies both SI and HI at this time. Disposition BEHAVIOR: Client presented as alert and oriented to time place and situation. Client was also very cordial, engaging and calm. EYE CONTACT: Client maintained good eye contact MOOD: Client presented with pleasant mood. However, client expressed feeling very bored and reports sleeping too much because there is nothing else to do. AFFECT: Client presented with restricted affect APPETITE: Client reported no issues with appetite SLEEP(trouble falling/staying asleep: Client reported he had been sleeping too much out of boredom Plan Client is still on involuntary status at this time. Client will remain at [facility] till he is placed for treatment. Client still needs to be assessed daily by [facility]. Referrals to [facility] as well as [facility] are both pending review and bed availability at this time. Signature Clinician's Name/Title: Khushboo Bolaños / Emergency Services Clinician
[2020-08-04 15:56] VITALS: BP 144/80; PULSE 59; RESP 20; TEMP 37; O2SAT 89
--- NOTE | 2020-08-04 17:42 | CMSP_ITS ---
- If Service Date Differs Date of service: 08/04/20 Time of Service: 17:43 Care Management Safety Plan Status: Involuntary INVOLUNTARY FOR INPATIENT PSYCHIATRIC STABILIZATION. Safety plan has been established to meet the needs of the patient, and consideration of the care team, to adhere to patient goals, identify restrictions based on behavioral status, address nutrition, and determine allowed personal belongings, tools for hygiene and personal care. Determine level of activity including ambulation, level of supervision, visitors, and determine privileges based on behaviors and level of engagement by pt. SAFETY PLAN: 1. Will remain on SI/HI precautions. In Paper Clothes 2. Will remain in room under direct supervision of one-on-one staff at all times provided by CPSO, VIDEO COORDINATOR, BUSINESS BROKER material requirements worker. 3. May have paper cups, plates, finger foods as well as a cardboard spoon with which to eat meals. 4. Follow [facility] Management of the Admitted Behavioral Health Patient policy. 5. Personal care: May shower at RN discretion with supervision and security presence. 6. No personal belongings. 7. Visitors: No visitors. 8. Activities: Coloring book, crayons, and other activities at RN discretion. TV and music tablet can be used at RN discretion. 9. Bathroom privileges without limitation. 10. Phone: None at this time. 11. Due to INVOLUNTARY status, patient is being held at [facility] by the Department of Mental Health ([facility]) until 2nd certification by [facility] Psychiatrist can be performed (within 24 hours). Staff will provide de-escalation support (CPI) as needed. If patient wishes to leave [facility], staff will contact [facility] Crisis Screener ([phone]) and On-Call Computer Instructor ([phone]) as soon as possible. In the event of elopement, notify [place] State Police ([phone]). Patient is currently involuntarily at [facility]. [facility] Frontline Skiver Operator will continue seeking placement. Please contact the Hot Stick Man Computer Instructor ([phone]) for any needed changes to Safety Plan. Safety plan has been provided to interdepartmental care team. Patient will be transported by [employer] at time of discharge.
--- NOTE | 2020-08-04 17:48 | CMSP_ITS ---
- If Service Date Differs Date of service: 08/04/20 Time of Service: 17:50 Care Management Safety Plan Status: Involuntary INVOLUNTARY FOR INPATIENT PSYCHIATRIC STABILIZATION. Safety plan has been established to meet the needs of the patient, and consideration of the care team, to adhere to patient goals, identify restrictions based on behavioral status, address nutrition, and determine allowed personal belongings, tools for hygiene and personal care. Determine level of activity including ambulation, level of supervision, visitors, and determine privileges based on behaviors and level of engagement by pt. SAFETY PLAN: 1. Will remain on SI/HI precautions. In Paper Clothes 2. Will remain in room under direct supervision of one-on-one staff at all times provided by CPSO, INSTRUCTIONAL RESOURCE TEACHER, FRONT OFFICE AGENT minute clerk for basic traffic. 3. May have paper cups, plates, finger foods as well as a cardboard spoon with which to eat meals. 4. Follow [facility] Management of the Admitted Behavioral Health Patient policy. 5. Personal care: Comfort bath system, shower permitted at RN discretion with supervision and security presence. 6. No personal belongings. 7. Visitors: No visitors. 8. Activities: Coloring book, crayons, and other activities at RN discretion. No music tablet or television encouraged at this time due to patient's persecutory delusions, hallucinations, and paranoia; at RN discretion. 9. Bathroom available in room on M/S without limitation. 10. Phone: limited to legal contact at this time. 11. Due to INVOLUNTARY status, patient is being held at [facility] by the Department of Mental Health ([facility]) until 2nd certification by [facility] Psychiatrist can be performed (within 24 hours). Staff will provide de-escalation support (CPI) as needed. If patient wishes to leave [facility], staff will contact [facility] Crisis Screener ([phone]) and On-Call Credit Specialist ([phone]) as soon as possible. In the event of elopement, notify [place] [employer] Police ([phone]). Patient is currently involuntarily at [facility]. [facility] Frontline Machine Assembler will continue seeking placement. Please contact the Orthopedic Shoe Fitter Credit Specialist ([phone]) for any needed changes to Safety Plan. Safety plan has been provi ded to interdepartmental care team. Patient will be transported by [facility] at time of discharge.
--- NOTE | 2020-08-04 17:48 | PDOC.CMSAFE ---
- If Service Date Differs Date of service: 08/04/20 Time of Service: 17:50 Care Management Safety Plan Status: Involuntary INVOLUNTARY FOR INPATIENT PSYCHIATRIC STABILIZATION. Safety plan has been established to meet the needs of the patient, and consideration of the care team, to adhere to patient goals, identify restrictions based on behavioral status, address nutrition, and determine allowed personal belongings, tools for hygiene and personal care. Determine level of activity including ambulation, level of supervision, visitors, and determine privileges based on behaviors and level of engagement by pt. SAFETY PLAN: 1. Will remain on SI/HI precautions. In Paper Clothes 2. Will remain in room under direct supervision of one-on-one staff at all times provided by CPSO, PAINT ROLLER ASSEMBLER, EDITORIAL WRITER corporate quality manager. 3. May have paper cups, plates, finger foods as well as a cardboard spoon with which to eat meals. 4. Follow [facility] Management of the Admitted Behavioral Health Patient policy. 5. Personal care: Comfort bath system, shower permitted at RN discretion with supervision and security presence. 6. No personal belongings. 7. Visitors: No visitors. 8. Activities: Coloring book, crayons, and other activities at RN discretion. No music tablet or television encouraged at this time due to patient's persecutory delusions, hallucinations, and paranoia; at RN discretion. 9. Bathroom available in room on M/S without limitation. 10. Phone: limited to legal contact at this time. 11. Due to INVOLUNTARY status, patient is being held at [facility] by the Department of Mental Health ([facility]) until 2nd certification by [facility] Psychiatrist can be performed (within 24 hours). Staff will provide de-escalation support (CPI) as needed. If patient wishes to leave [facility], staff will contact [facility] Crisis Screener ([phone]) and On-Call Cloth Bleaching Range Tender ([phone]) as soon as possible. In the event of elopement, notify [place] [email or web address] Police ([phone]). Patient is currently involuntarily at [facility]. [facility] Frontline Senior Network Security Architect will continue seeking placement. Please contact the Repairer Evaporator Cloth Bleaching Range Tender ([phone]) for any needed changes to Safety Plan. Safety plan has been provided to interdepartmental care team. Patient will be transported by [facility] at time of discharge.
--- NOTE | 2020-08-04 18:22 | CMPROGNOTE_ITS ---
- If Service Date Differs Date of service: 08/04/20 Time of Service: 18:22 Care Management Progress Note S/O: Nathan was sleeping when CM attempted to meet with him. No change in plan at this time, therefore CM did not wake him. CM was asked to update his safety plan by his RN to include TV, at the discretion of staff. Referrals were sent to [facility] (declined- too medically acute); [facility] (no beds); [facility] (no beds); (no decision); and [facility] was looking into [facility], as he is involuntary. CM will contin ue to follow. A: Nathan is a 60 year old male who presents in the ED for suicidal ideation, hallucinations, and hypertension. P: Referrals [facility] to [facility], [facility], [facility], and [facility] for review. [facility] has declined Nathan, [facility] is currently full, [facility] is full, the [place] declined and [facility] has yet to make a decision. Nathan will, therefore, remain at [facility] on involuntary status while [facility] continues to seek a placement for him. CM will continue to follow.
--- NOTE | 2020-08-04 18:22 | PDOC.CMPRO ---
- If Service Date Differs Date of service: 08/04/20 Time of Service: 18:22 Care Management Progress Note S/O: Nathan was sleeping when CM attempted to meet with him. No change in plan at this time, therefore CM did not wake him. CM was asked to update his safety plan by his RN to include TV, at the discretion of staff. Referrals were sent to [facility] (declined- too medically acute); [facility] (no beds); [facility] (no beds); (no decision); and [facility] was looking into [facility], as he is involuntary. CM will continue to follow. A: Nathan is a 60 year old male who presents in the ED for suicidal ideation, hallucinations, and hypertension. P: [facility] to [facility], [facility], [facility], and [facility] for review. [facility] has declined Nathan, [facility] is currently full, [facility] is full, the [place] declined and [facility] has yet to make a decision. Nathan will, therefore, remain at [facility] on involuntary status while [facility] continues to seek a placement for him. CM will continue to follow.
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
[2020-08-04 21:20] VITALS: BP 153/94; PULSE 66; RESP 18; TEMP 36.7; O2SAT 93
[2020-08-04] MEDS: Simvastatin 20 MG TAB PO (21:50)
[2020-08-05 00:35] VITALS: BP 131/80; PULSE 61; RESP 20; TEMP 36.7; O2SAT 91
[2020-08-05 08:13] VITALS: BP 168/117; PULSE 80; RESP 20; TEMP 37.4; O2SAT 90
[2020-08-05] MEDS: Lisinopril 20 MG TAB PO (08:50)
[2020-08-05] MEDS: ARIPiprazole 2 MG TAB PO (08:50)
[2020-08-05] MEDS: Cholecalciferol (Vitamin D3) 1,000 UNIT TAB 1000 UNITS PO (08:50)
--- NOTE | 2020-08-05 14:19 | W.PM.PROGNOT ---
Date of Service Date of service: 08/05/20 Time of Service: 14:19 Assessment and Plan Assessment and plan (1) Suicidal ideations: Status: Acute Assessment and plan: Await a psychiatric bed in involuntary status with CPSO and suicide precautions (2) Hallucinations: Status: Acute Assessment and plan: Part of psychosis. The patient does have underlying diagnosis of schizophrenia. Not having at this time. (3) HTN (hypertension): Status: Chronic Assessment and plan: continue lisinopril (4) COPD (chronic obstructive pulmonary disease): Status: Chronic Assessment and plan: not in acute exacerbation. He does not usually wear oxygen will do exercise oximetry d/c oxygen, as along as he is above 89% he does not require oxygen as he does not wear it at CI (5) Obstructive sleep apnea: Status: Chronic Assessment and plan: The patient states he does not use CPAP at home We will provide O2 here. (6) Diabetes: Status: Chronic Assessment and plan: continue diabetic diet and sliding scale coverage as needed. (7) DVT prophylaxis: Status: Acute Assessment and plan: SC lovenox (8) Discharge planning issues: Status: Acute Assessment and plan: Full code Obs awaiting placement discussed with Dr. Farmer Subjective Subjective Patient reports: no new complaints Exam Narrative Exam Narrative: General: Obese Middle-aged male Sitting up in bed, awake alert and oriented, denies, on oxygen but does not usually wear it. Will do ambulatory pulse ox Neurological: A&ox3, no focal deficits Psychiatric:States no SI today Skin: Visible skin intact HEENT: Atraumatic, normocephalic, EOMI, MMM, clear oropharynx, no lymphadenopathy, goiter or JVD, large neck diameter Cardiovascular: RRR, no m/r/g Lungs: LSC, denies CP Gastrointestinal: soft, nontender, nondistended Extremities: +1 pitting edema at B ankles, trace pedal pulses B Objective Last Vital Signs Temp 37.4 C 08/05/20 08:13 Pulse 80 08/05/20 08:13 Resp 20 08/05/20 08:13 BP 168/117 H 08/05/20 08:13 Pulse Ox 90 L 08/05/20 08:13
--- NOTE | 2020-08-05 14:53 | PDOC.MHCN_ITS ---
Date of service: 08/05/20 Time of Service: 13:30 Mental Health Crisis Note Presenting Issue How did you arrive at the ED and why did you come: Client is currently on EE status at [facility] awaiting inpatient treatment. Precipitating Factors Client reports about SI I say I do, but I don't because I feel like i'm already Client reports no HI. Disposition BEHAVIOR: Client is receptive when speaking with this race and sports book writer. EYE CONTACT: Client makes little eye contact. MOOD: Client appears depressed. AFFECT: Cleints affect is flat. APPETITE: Client reports a normal appetite. SLEEP(trouble falling/staying asleep: Client reports that he slept heavy Plan Client will remain on EE status at [facility] until placement is found. All hospitals were called today, with no availability. Signature Clinician's Name/Title: Olimpia Burk [facility] Emergency Clinician
[2020-08-05 16:20] VITALS: BP 142/64; PULSE 72; RESP 18; TEMP 37; O2SAT 91
--- NOTE | 2020-08-05 17:33 | CMPROGNOTE_ITS ---
- If Service Date Differs Date of service: 08/05/20 Time of Service: 17:33 Care Management Progress Note S/O: Nathan was lying in bed when CM met with him today. He reported that he has been sleeping a lot, which he prefers not to do. He had the TV on in the room. He stated that he was doing ok, had been eating well and didn't need anything at this time. CM discussed the plan for him to go to an inpatient psychiatric facility when a bed becomes available. He was able to shower today. CM will continue to follow. A: Nathan is a 60 year old male who presents in the ED for suicidal ideation, hallucinations, and hypertension. P: [facility] to [facility], [facility], [facility], and [facility] for review. [facility] has declined Nathan, [facility] is currently full, [facility] is full, the [place] declined and [facility] has yet to make a decision. Nathan will, therefore, remain at [facility] on involuntary status while [facility] continues to seek a placement for him. CM will continue to follow.
--- NOTE | 2020-08-05 17:36 | PDOC.CMSAFE ---
- If Service Date Differs Date of service: 08/05/20 Time of Service: 17:36 Care Management Safety Plan Status: Involuntary INVOLUNTARY FOR INPATIENT PSYCHIATRIC STABILIZATION. Safety plan has been established to meet the needs of the patient, and consideration of the care team, to adhere to patient goals, identify restrictions based on behavioral status, address nutrition, and determine allowed personal belongings, tools for hygiene and personal care. Determine level of activity including ambulation, level of supervision, visitors, and determine privileges based on behaviors and level of engagement by pt. SAFETY PLAN: 1. Will remain on SI/HI precautions. In Paper Clothes 2. Will remain in room under direct supervision of one-on-one staff at all times provided by CPSO, GRADES 9 THRU 12 VISITING TEACHER, PRECISION FARMING SPECIALIST resident inspector. 3. May have paper cups, plates, finger foods as well as a cardboard spoon with which to eat meals. 4. Follow [facility] Management of the Admitted Behavioral Health Patient policy. 5. Personal care: Comfort bath system, shower permitted at RN discretion with supervision and security presence. 6. No personal belongings. 7. Visitors: No visitors. 8. Activities: Coloring book, crayons, and other activities at RN discretion. TV and music tablet can be used at RN discretion. 9. Bathroom available in room on M/S without limitation. 10. Phone: limited to legal contact at this time. 11. Due to INVOLUNTARY status, patient is being held at [facility] by the Department of Mental Health ([facility]) until 2nd certification by [facility] Psychiatrist can be performed (within 24 hours). Staff will provide de-escalation support (CPI) as needed. If patient wishes to leave [facility], staff will contact [facility] Crisis Screener ([phone]) and On-Call Insurance Sales Professional ([phone]) as soon as possible. In the event of elopement, notify [place] [employer] ([phone]). Patient is currently involuntarily at [facility]. [facility] Frontline Tread Builder will continue seeking placement. Please contact the Agricultural Inspector Insurance Sales Professional ([phone]) for any needed changes to Safety Plan. Safety plan has been provided to interdepartmental care team. Patient will be transported by [employer] at time of discharge.
[2020-08-05] MEDS: Enoxaparin 40 MG/0.4 ML SYR SC (18:34)
--- NOTE | 2020-08-05 21:20 | PDOC.MHCN_ITS ---
Date of service: 08/05/20 Time of Service: 19:28 Mental Health Crisis Note Presenting Issue How did you arrive at the ED and why did you come: Client is on EE status awaiting placement. Precipitating Factors Client does not report any SI or HI Disposition BEHAVIOR: Clients behavior is unremarkable. EYE CONTACT: Client makes minimal eye contact with this medical writer. MOOD: Clients mood is depressed. AFFECT: Client has a blunted affect. APPETITE: Client reports a normal appetite. SLEEP(trouble falling/staying asleep: Client reports that he has been sleeping most of the day. Plan Client will remain at [facility] on EE status until placement is found. All hospitals were called earlier in the day with no availability anywhere. Client will continue to be assessed 2x per day until placement is found. Signature Clinician's Name/Title: Olimpia Burk [facility] Emergency Clinician
[2020-08-05] MEDS: Simvastatin 20 MG TAB PO (21:55)
[2020-08-05 22:02] VITALS: BP 150/90; PULSE 70; RESP 17; TEMP 36.8; O2SAT 91
[2020-08-06 06:48] LABS: HGB 15.7 g/dL (13.5-17.5); MCH 28.6 pg (27.0-33.0); MCHC 32.7 % (32.0-36.0); MCV 87.4 fL (80-95); MPV 9.4 fL (8.0-11.0); Platelet Count 269 10^3/uL (130-400); RBC 5.49 10^6/uL (4.36-5.78); RDW 13.2 % (11.8-14.1); RDW-SD 42.5 fL; WBC 6.17 10^3/uL (4.4-10.8)
[2020-08-06 08:07] VITALS: BP 117/81; PULSE 62; RESP 18; TEMP 36.6; O2SAT 91
[2020-08-06] MEDS: Cholecalciferol (Vitamin D3) 1,000 UNIT TAB 1000 UNITS PO (08:17)
[2020-08-06] MEDS: Lisinopril 20 MG TAB PO (08:17)
[2020-08-06] MEDS: Acetaminophen 325 MG TAB 650 MG PO (08:18)
[2020-08-06] MEDS: ARIPiprazole 2 MG TAB PO (08:18)
--- NOTE | 2020-08-06 08:45 | CMPROGNOTE_ITS ---
- If Service Date Differs Date of service: 08/06/20 Time of Service: 08:46 Care Management Progress Note S/O: Nathan was lying in bed when CM met with him. [facility], was in the room as well, assessing Nathan for his daily check in. He stated that he feels that he is eating and sleeping too much. He reported feeling a lot of anxiety, and feeling restless. He reported feeling bored at [facility]. He is watching TV some of the time. CM willl continue to follow. A: Nathan is a 60 year old male who presents in the ED for suicidal ideation, hallucinations, and hypertension. P: [facility] to [facility], [facility], [facility], and [facility] for review. [facility] has declined Nathan, [facility] is currently full, [facility] is full, the [place] declined and [facility] has yet to make a decision. Nathan will, therefore, remain at [facility] on involuntary status while [facility] continues to seek a placement for him. CM will continue to follow.
--- NOTE | 2020-08-06 08:45 | PDOC.CMPRO ---
- If Service Date Differs Date of service: 08/06/20 Time of Service: 08:46 Care Management Progress Note S/O: Nathan was lying in bed when CM met with him. Sultana [facility], was in the room as well, assessing Nathan for his daily check in. He stated that he feels that he is eating and sleeping too much. He reported feeling a lot of anxiety, and feeling restless. He reported feeling bored at [facility]. He is watching TV some of the time. CM willl continue to follow. A: Nathan is a 60 year old male who presents in the ED for suicidal ideation, hallucinations, and hypertension. P: [facility] to [facility], [facility], [facility], and [facility] for review. [facility] has declined Nathan, [facility] is currently full, [facility] is full, the [place] declined and [facility] has yet to make a decision. Nathan will, therefore, remain at [facility] on involuntary status while [facility] continues to seek a placement for him. CM will continue to follow.
--- NOTE | 2020-08-06 08:47 | PDOC.CMSAFE ---
- If Service Date Differs Date of service: 08/06/20 Time of Service: 08:47 Care Management Safety Plan Status: Involuntary INVOLUNTARY FOR INPATIENT PSYCHIATRIC STABILIZATION. Safety plan has been established to meet the needs of the patient, and consideration of the care team, to adhere to patient goals, identify restrictions based on behavioral status, address nutrition, and determine allowed personal belongings, tools for hygiene and personal care. Determine level of activity including ambulation, level of supervision, visitors, and determine privileges based on behaviors and level of engagement by pt. SAFETY PLAN: 1. Will remain on SI/HI precautions. In Paper Clothes 2. Will remain in room under direct supervision of one-on-one staff at all times provided by CPSO, SWEET DOUGH MIXER, WOOD MACHINE CARVER oral and maxillofacial surgery resident. 3. May have paper cups, plates, finger foods as well as a cardboard spoon with which to eat meals. 4. Follow [facility] Management of the Admitted Behavioral Health Patient policy. 5. Personal care: Comfort bath system, shower permitted at RN discretion with supervision. 6. No personal belongings. 7. Visitors: No visitors. 8. Activities: Coloring book, crayons, and other activities at RN discretion. TV and music tablet can be used at RN discretion. 9. Bathroom available in room on M/S without limitation. 10. Phone: limited to legal contact at this time. 11. Due to INVOLUNTARY status, patient is being held at [facility] by the Department of Mental Health ([facility]) until 2nd certification by [facility] Psychiatrist can be performed (within 24 hours). Staff will provide de-escalation support (CPI) as needed. If patient wishes to leave [facility], staff will contact [facility] Crisis Screener ([phone]) and On-Call Mutuel Department Manager ([phone]) as soon as possible. In the event of elopement, notify [place] State Police ([phone]). Patient is currently involuntarily at [facility]. [facility] Frontline Studio Model will continue seeking placement. Please contact the Wool Shearer Mutuel Department Manager ([phone]) for any needed changes to Safety Plan. Safety plan has been provided to interdepartmental care team. Patient will be transported by [facility] at time of discharge.
[2020-08-06] MEDS: metFORMIN 500 MG TAB PO ×2 (09:35→16:32)
--- NOTE | 2020-08-06 10:57 | W.PM.PROGNOT ---
Date of Service Date of service: 08/06/20 Time of Service: 10:58 Assessment and Plan Assessment and plan (1) Suicidal ideations: Status: Acute Assessment and plan: Await a psychiatric bed in involuntary status with CPSO and suicide precautions (2) Hallucinations: Status: Acute Assessment and plan: Part of psychosis. The patient does have underlying diagnosis of schizophrenia. Not having at this time. (3) HTN (hypertension): Status: Chronic Assessment and plan: continue lisinopril (4) COPD (chronic obstructive pulmonary disease): Status: Chronic Assessment and plan: not in acute exacerbation. He does not usually wear oxygen will do exercise oximetry d/c oxygen, as along as he is above 89% he does not require oxygen as he does not wear it at CI (5) Obstructive sleep apnea: Status: Chronic Assessment and plan: The patient states he does not use CPAP at home We will provide O2 here. (6) Diabetes: Status: Chronic Assessment and plan: continue diabetic diet blood sugars stable will discontinue blood sugar checks and resume metformin A1C 6.4 in june 2020 (7) DVT prophylaxis: Status: Acute Assessment and plan: SC lovenox (8) Discharge planning issues: Status: Acute Assessment and plan: Full code Obs awaiting placement discussed with Dr. Farmer Subjective Subjective Patient reports: no new complaints, feels better, tolerating liquids well, tolerating a regular diet and afebrile Interval history since last seen: remains medically stable, no behavioral issues Exam Narrative Exam Narrative: General: Obese Middle-aged male Sitting up in bed, awake alert and oriented, denies, on oxygen but does not usually wear it. Will do ambulatory pulse ox Neurological: A&ox3, no focal deficits Psychiatric:States no SI today Skin: Visible skin intact HEENT: Atraumatic, normocephalic, EOMI, MMM, clear oropharynx, no lymphadenopathy, goiter or JVD, large neck diameter Cardiovascular: RRR, no m/r/g Lungs: LSC, denies CP Gastrointestinal: soft, nontender, nondistended Extremities: +1 pitting edema at B ankles, trace pedal pulses B Objective Last Vital Signs Temp 36.6 C 08/06/20 08:07 Pulse 62 08/06/20 08:07 Resp 18 08/06/20 08:07 BP 117/81 08/06/20 08:07 Pulse Ox 91 L 08/06/20 08:07 Laboratory Results - last 24 hr 08/06/20 06:20 WBC 6.17 RBC 5.49 Hgb 15.7 Hct 48.0 MCV 87.4 MCH 28.6 MCHC 32.7 RDW 13.2 Plt Count 269 MPV 9.4
--- NOTE | 2020-08-06 11:45 | PDOC.MHCN_ITS ---
Date of service: 08/06/20 Time of Service: 11:45 Mental Health Crisis Note Presenting Issue How did you arrive at the ED and why did you come: Client is seen today for check-in assessment after arriving at [facility] ed on 07/31/20 after endorsing SI. Client is currently on Involuntary status awaiting placement. Precipitating Factors Client denies SI and HI, although states when asked about HI I have been having these thoughts my whole life, I am just confused. Disposition BEHAVIOR: Client is laying in his hospital bed in proper paper hospital attire when this physician underwriter arrives in person. Client is guarded, but cooperative with this physician underwriter when being asked questions. EYE CONTACT: Client makes no eye contact with this physician underwriter, he is seen to be staring blankly at the wall. MOOD: Clients mood appears to be depressed, he states that his anxiety level is at a 9 on a scale of 0-10. AFFECT: Very flat affect. APPETITE: Client states that he has been eating good, probably too much. SLEEP(trouble falling/staying asleep: Client states that he has been sleeping a lot, but feels restless and no well rested. Plan Client will remain in [facility] transition unit on EE status awaiting placement. Check-in done with ocular care technologist. Sabas, [facility], [facility], and [facility] all called to check on referral status with no bed availability at any of the hospitals. Signature Clinician's Name/Title: Ivanna Churchill [facility] Emergency Clinician
[2020-08-06 17:38] VITALS: BP 139/93; PULSE 66; RESP 16; TEMP 36.6; O2SAT 90
[2020-08-06] MEDS: Simvastatin 20 MG TAB PO (20:20)
[2020-08-07 00:12] VITALS: BP 149/100; PULSE 65; RESP 18; TEMP 36.7; O2SAT 90
[2020-08-07 00:15] VITALS: BP 162/99
[2020-08-07] MEDS: Acetaminophen 325 MG TAB 650 MG PO (00:32)
[2020-08-07 08:13] VITALS: BP 181/76; PULSE 68; RESP 20; TEMP 36.3; O2SAT 89
[2020-08-07] MEDS: Cholecalciferol (Vitamin D3) 1,000 UNIT TAB 1000 UNITS PO (08:21)
[2020-08-07] MEDS: Lisinopril 20 MG TAB PO (08:22)
[2020-08-07] MEDS: ARIPiprazole 2 MG TAB PO (08:22)
[2020-08-07] MEDS: metFORMIN 500 MG TAB PO ×2 (08:22→17:01)
--- NOTE | 2020-08-07 08:22 | NUR.NOTE ---
Confirmed medications and patient with paper MAR because there is no portable computer available for scanning. Will notify IT department. Nursing Note:
[2020-08-07 08:35] VITALS: O2SAT 94
--- NOTE | 2020-08-07 08:43 | W.PFT ---
Date of service: 08/04/20 Time of Service: 02:01 Pulmonary Function Test Result Interpretation Spirometry: Very severe obstructive airways disease, with significant bronchodilator response Impression Very severe obstructive airways disease, with significant bronchodilator response Clinical Correlation therefore is recommended.
[2020-08-07] MEDS: Albuterol HFA 8 GM 60 PUFF INH IH (08:45)
--- NOTE | 2020-08-07 10:41 | NUR.NOTE ---
PT repositioned himself and I asked, Are you okay, do you need anything, my friend? PT stated, No, I'm not okay. When I asked what was wrong or what I could do to help he stated, I'm just here and I don't want to talk, dear. Nursing Note:
--- NOTE | 2020-08-07 12:37 | NUR.NOTE ---
Mental health in with PT @1230 Nursing Note:
--- NOTE | 2020-08-07 12:47 | NUR.NOTE ---
MH just left PTs room. She told me that the PT stated he, Feels inside. MH then asked me to just keep a little bit of an extra eye on him as she thinks he is very down today. Also said she noticed that the PT feels like a burden and will not ask for things. Or if we ask if he needs anything he will say, No. So we should start saying, Where going to get you 'this' or 'that'. Because he will not ask for things. I will notify nurse of this conversation MH and I had as well as oncoming CPSO. Nursing Note:
--- NOTE | 2020-08-07 14:19 | PDOC.MHCN_ITS ---
Date of service: 08/07/20 Time of Service: 12:15 Mental Health Crisis Note Presenting Issue How did you arrive at the ED and why did you come: Client arrived at [facility] via ambulance due to concerns of delusion with auditory and visual hallucinations Precipitating Factors Client endorsed SI but no HI. Client stated I am already inside. I keep looking around for something that could finally kill me. Disposition BEHAVIOR: Client presented as withdrawn and hopeless EYE CONTACT: Client maintained minimal eye contact MOOD: Client presented as very depressed dysphoric mood AFFECT: Client presented with flat affect APPETITE: Client reported his appetite was okay. Client stated: I feel really at because all I do is eat. I am tired of eating SLEEP(trouble falling/staying asleep: Client reported he had been sleeping too much Plan Client will remain at [facility] till he is placed for in-patient treatment. Client will need to be assessed daily by [facility]. Referral have been made to [facility] and [facility] and they are pending review and bed availability. BR has requested updated clinical and assessment note and will reconsider his referral pending review. Signature Clinician's Name/Title: Khushboo Bolaños / Emergency Services Clinician
[2020-08-07] MEDS: diazePAM 5 MG TAB PO (14:27)
--- NOTE | 2020-08-07 15:39 | PHA.REVIEW ---
Pharmacy Admission Review - Admission Clinical Review (Last Updated 08/04/20 @ 01:47 by Jordyn Whiting MD) Discharge planning issues (Acute) DVT prophylaxis (Acute) Suicidal ideations (Acute) Hallucinations (Acute) No Known Allergies Allergy (Unverified 07/31/20 08:29) Height 5 ft 9 in Weight 114 kg - Renal Dosing Renal Dosing: BUN 7 mg/dL (7-18) 07/31/20 08:45 Creatinine 0.9 mg/dL (0.70-1.30) 07/31/20 08:45 Medications needing adjustments: Reviewed (Crcl ~88 mL/min current meds okay) - Anticoagulation Anticoagulation: Hgb 15.7 g/dL (13.5-17.5) 08/06/20 06:20 Hct 48.0 % (40.0-50.0) 08/06/20 06:20 Plt Count 269 10^3/uL (130-400) 08/06/20 06:20 Creatinine 0.9 mg/dL (0.70-1.30) 07/31/20 08:45 DVT Prohphylaxis: N/A - Opiate Usage Evaluate Pain Scale/Pains Meds: N/A - Relevant Labs Sodium 139 mmol/L (136-145) 07/31/20 08:45 Potassium 3.5 mmol/L (3.5-5.1) 07/31/20 08:45 Chloride 101 mmol/L (98-107) 07/31/20 08:45 Electrolytes, C-Reactive P, ESR: Reviewed - DM Control DM Control: Glucose 156 mg/dL (74-106) H 07/31/20 08:45 Insulin Dosing: N/A (Insulin aspart discontinued yeterday, metformin resumed.) - Heart Failure/SD EF%, SARA's, B-Blockers, Diuretics: N/A - BP Control BP Control: Blood Pressure 181/76 If elevated: Reviewed (BP has been normal to high so far this admission. Currently has lisinopril ordered.) - Qtc Review If Elevated: N/A (QTc 431 on admission) - IV to PO Switch IV Medications: Reviewed - Home Meds Home Med List reviewed: Reviewed Relevent Home Meds Not ordered & why?: hydrocortisone, oxybutynin, vilazodone - Current meds Current Medication Order Review: Reviewed - Comments Comments/Follow Ups: Watch BP, labs and for med changes.
[2020-08-07 15:50] VITALS: BP 135/86; PULSE 65; RESP 18; TEMP 36.9; O2SAT 93
--- NOTE | 2020-08-07 16:28 | MHPN_ITS ---
Date of service: 08/07/20 Time of Service: 16:28 Mental Health Crisis Note Presenting Issue How did you arrive at the ED and why did you come: Pt arrived to [facility] 1 week ago today via his care givers. He was brought due to an increase in auditory hallucinations. Precipitating Factors Pt reported he is still feeling suicidal. He is endorsing auditory hallucinations. Disposition BEHAVIOR: Pt is cooperative and engaged in the discussion more than he was last week when evaluations in the mornings. EYE CONTACT: Good MOOD: depressed AFFECT: Flat APPETITE: Reported he is eating. SLEEP(trouble falling/staying asleep: Reporting he is sleeping. Plan Pt continues to struggle with auditory hallucinations and is unable to distinguish between real life and delusions and therefore will remain on EE status. He will be assessed twice daily by [facility] until placement is found. Signature Clinician's Name/Title: Rajwinder Flores MS, [facility] Emergency Services Clinician, [facility]
--- NOTE | 2020-08-07 16:57 | W.PM.PROGNOT ---
Date of Service Date of service: 08/07/20 Time of Service: 13:00 Assessment and Plan Assessment and plan (1) Suicidal ideations: Start date: 08/07/20 Start time: 13:00 Status: Acute Assessment and plan: Await a psychiatric bed in involuntary status with CPSO and suicide precautions (2) Hallucinations: Start date: 08/07/20 Start time: 13:00 Status: Acute Assessment and plan: Part of psychosis. The patient does have underlying diagnosis of schizophrenia. Not having at this time. He is having anxiety diazapem prn for this (3) HTN (hypertension): Start date: 08/07/20 Start time: 16:59 Status: Chronic Assessment and plan: continue lisinopril (4) COPD (chronic obstructive pulmonary disease): Start date: 08/07/20 Start time: 13:00 Status: Chronic Assessment and plan: not in acute exacerbation. Does not need oxygen at this time. (5) Obstructive sleep apnea: Start date: 08/07/20 Start time: 13:00 Status: Chronic Assessment and plan: The patient states he does not use CPAP at home We will provide O2 here. (6) DVT prophylaxis: Start date: 08/07/20 Start time: 13:00 Status: Acute Assessment and plan: SC lovenox (7) Discharge planning issues: Start date: 08/07/20 Start time: 13:00 Status: Acute Assessment and plan: Full code Obs awaiting placement discussed with Dr. Sampson. Subjective Subjective Patient reports: other Interval history since last seen: Patient sitting up in bed feeling anxious. No thought of SI or HI. No c/o difficulty breathing. Exam Narrative Exam Narrative: General: Obese Middle-aged male Sitting up in bed, awake alert and oriented, denies, on oxygen but does not usually wear it. Will do ambulatory pulse ox Neurological: A&ox3, no focal deficits Psychiatric:States no SI today Skin: Visible skin intact HEENT: Atraumatic, normocephalic, EOMI, MMM, clear oropharynx, no lymphadenopathy, goiter or JVD, large neck diameter Cardiovascular: RRR, no m/r/g Lungs: LSC, denies CP Gastrointestinal: soft, nontender, nondistended Extremities: +1 pitting edema at B ankles, trace pedal pulses B Objective Last Vital Signs Temp 36.9 C 08/07/20 15:50 Pulse 65 08/07/20 15:50 Resp 18 08/07/20 15:50 BP 135/86 08/07/20 15:50 Pulse Ox 93 08/07/20 15:50
--- NOTE | 2020-08-07 17:00 | CMSP_ITS ---
- If Service Date Differs Date of service: 08/07/20 Time of Service: 17:00 Care Management Safety Plan Status: Involuntary INVOLUNTARY FOR INPATIENT PSYCHIATRIC STABILIZATION. Safety plan has been established to meet the needs of the patient, and consideration of the care team, to adhere to patient goals, identify restrictions based on behavioral status, address nutrition, and determine allowed personal belongings, tools for hygiene and personal care. Determine level of activity including ambulation, level of supervision, visitors, and determine privileges based on behaviors and level of engagement by pt. SAFETY PLAN: 1. Will remain on SI/HI precautions. In Paper Clothes 2. Will remain in room under direct supervision of one-on-one staff at all times provided by CPSO, MEDICAL REGISTRAR, UNIVERSITY LIBRARIAN enrollment management director. 3. May have paper cups, plates, finger foods as well as a cardboard spoon with which to eat meals. 4. Follow [facility] Management of the Admitted Behavioral Health Patient policy. 5. Personal care: Comfort bath system, shower permitted at RN discretion with supervision. 6. No personal belongings. 7. Visitors: No visitors. 8. Activities: Coloring book, crayons, and other activities at RN discretion. TV and music tablet can be used at RN discretion. 9. Bathroom available in room on M/S without limitation. 10. Phone: limited to legal contact at this time. 11. Due to INVOLUNTARY status, patient is being held at [facility] by the Department of Mental Health ([facility]) until 2nd certification by [facility] Psychiatrist can be performed (within 24 hours). Staff will provide de-escalation support (CPI) as needed. If patient wishes to leave [facility], staff will contact [facility] Crisis Screener ([phone]) and On-Call Hay Farmer ([phone]) as soon as possible. In the event of elopement, notify [place] State Police ([phone]). Patient is currently involuntarily at [facility]. [facility] Frontline Can Tender will continue seeking placement. Please contact the Skein Dyer Hay Farmer ([phone]) for any needed changes to Safety Plan. Safety plan has been provided to interdepartmental care team. Patient will be transported by [employer] at time of discharge.
--- NOTE | 2020-08-07 17:01 | CMPROGNOTE_ITS ---
- If Service Date Differs Date of service: 08/07/20 Time of Service: 17:01 Care Management Progress Note S/O: Nathan is laying in bed when CM comes to meet with him. He continues to be calm and cooperative. Today is day 7 of his stay at [facility] and his depression appears to be worsening with each day. Nathan shares that he is having an increase of suicidal thoughts but is fighting them off as best as he can. He was reassessed by [facility] earlier in the day and continues to meet criteria [facility]. CM remains in contact with [facility] senior care assistant, who is assisting in finding a placement for Nathan. CM will continue to follow. A: Nathan is a 60 year old male who presents in the ED for suicidal ideation, hallucinations, and hypertension. P: Referrals were [facility] to [facility], [facility], [facility], and [facility] for review. [facility] and [facility] have declined Nathan, [facility] is currently full and [facility] has yet to make a decision. Nathan will, therefore, remain at [facility] on involuntary status while [facility] continues to seek a placement for him. CM will continue to follow.
--- NOTE | 2020-08-07 17:01 | PDOC.CMPRO ---
- If Service Date Differs Date of service: 08/07/20 Time of Service: 17:01 Care Management Progress Note S/O: Nathan is laying in bed when CM comes to meet with him. He continues to be calm and cooperative. Today is day 7 of his stay at [facility] and his depression appears to be worsening with each day. Nathan shares that he is having an increase of suicidal thoughts but is fighting them off as best as he can. He was reassessed by [facility] earlier in the day and continues to meet criteria for involuntary psychiatric hospitalization. CM remains in contact with Morenita [facility] manager primary care, who is assisting in finding a placement for Nathan. CM will continue to follow. A: Nathan is a 60 year old male who presents in the ED for suicidal ideation, hallucinations, and hypertension. P: [facility] to [facility], [facility], [facility], and [facility] for review. [facility] and [facility] Nathan, [facility] is currently full and [facility] has yet to make a decision. Nathan will, therefore, remain at [facility] on involuntary status while [facility] continues to seek a placement for him. CM will continue to follow.
[2020-08-07] MEDS: Simvastatin 20 MG TAB PO (19:50)
[2020-08-08 08:00] VITALS: BP 142/85; PULSE 61; RESP 18; TEMP 36.7; O2SAT 92
[2020-08-08] MEDS: Cholecalciferol (Vitamin D3) 1,000 UNIT TAB 1000 UNITS PO (08:15)
[2020-08-08] MEDS: ARIPiprazole 2 MG TAB PO (08:15)
[2020-08-08] MEDS: metFORMIN 500 MG TAB PO ×2 (08:15→16:57)
[2020-08-08] MEDS: Lisinopril 20 MG TAB PO (08:15)
[2020-08-08] MEDS: Acetaminophen 325 MG TAB 650 MG PO (08:15)
--- NOTE | 2020-08-08 08:38 | CMSP_ITS ---
- If Service Date Differs Date of service: 08/08/20 Time of Service: 08:38 Care Management Safety Plan Status: Involuntary NVOLUNTARY FOR INPATIENT PSYCHIATRIC STABILIZATION. Safety plan has been established to meet the needs of the patient, and consideration of the care team, to adhere to patient goals, identify restrictions based on behavioral status, address nutrition, and determine allowed personal belongings, tools for hygiene and personal care. Determine level of activity including ambulation, level of supervision, visitors, and determine privileges based on behaviors and level of engagement by patient. A huddle is done with Raegan, nursing poultry processing supervisor, Cassie, coordinator, Rajwinder [facility], and SHELL Truner. SAFETY PLAN: 1. Will remain on SI/HI precautions. In Paper Clothes 2. Will remain in room under direct supervision of one-on-one staff at all times provided by CPSO, RASHIDA, OR NURSE MANAGER utility arborist. 3. May have paper cups, plates, finger foods as well as a cardboard spoon with which to eat meals. 4. Follow [facility] Management of the Admitted Behavioral Health Patient policy. 5. Personal care: Comfort bath system, shower permitted at RN discretion with supervision. 6. No personal belongings. 7. Visitors: No visitors. 8. Activities: Coloring book, crayons, and other activities at RN discretion. TV and music tablet are permitted at RN discretion. 9. Bathroom available in room on M/S without limitation. 10. Phone: limited to legal contact at this time. 11. Due to INVOLUNTARY status, patient is being held at [facility] by the Department of Mental Health ([facility]). The 2nd certification by [facility] Psychiatrist has occurred and Nathan was deemed a person in need of treatment. Staff will provide de- escalation support (CPI) as needed. If patient wishes to leave [facility], staff will contact [facility] Crisis Screener ([phone]) and On-Call Electrical Assemblies Supervisor ([phone]) as soon as possible. In the event of elopement, notify [place] [employer] ([phone]). Patient is currently involuntarily at [facility]. [facility] Frontline Shipping Point Inspector will continue seeking placement. Please contact the Wool Washing Machine Operator Electrical Assemblies Supervisor ([phone]) for any needed changes to Safety Plan. Safety plan has been provided to interdepartmental care team. Patient will be transported by reactor technician at time of discharge.
--- NOTE | 2020-08-08 08:38 | PDOC.CMSAFE ---
- If Service Date Differs Date of service: 08/08/20 Time of Service: 08:38 Care Management Safety Plan Status: Involuntary NVOLUNTARY FOR INPATIENT PSYCHIATRIC STABILIZATION. Safety plan has been established to meet the needs of the patient, and consideration of the care team, to adhere to patient goals, identify restrictions based on behavioral status, address nutrition, and determine allowed personal belongings, tools for hygiene and personal care. Determine level of activity including ambulation, level of supervision, visitors, and determine privileges based on behaviors and level of engagement by patient. A huddle is done with Raegan, nursing help desk supervisor, Cassie, coordinator, Rajwinder [facility], and SHELL Turner. SAFETY PLAN: 1. Will remain on SI/HI precautions. In Paper Clothes 2. Will remain in room under direct supervision of one-on-one staff at all times provided by CPSO, RASHIDA, DIRECTOR TRADE payroll machine operator. 3. May have paper cups, plates, finger foods as well as a cardboard spoon with which to eat meals. 4. Follow [facility] Management of the Admitted Behavioral Health Patient policy. 5. Personal care: Comfort bath system, shower permitted at RN discretion with supervision. 6. No personal belongings. 7. Visitors: No visitors. 8. Activities: Coloring book, crayons, and other activities at RN discretion. TV and music tablet are permitted at RN discretion. 9. Bathroom available in room on M/S without limitation. 10. Phone: limited to legal contact at this time. 11. Due to INVOLUNTARY status, patient is being held at [facility] by the Department of Mental Health ([facility]). The 2nd certification by [facility] Psychiatrist has occurred and Nathan was deemed a person in need of treatment. Staff will provide de-escalation support (CPI) as needed. If patient wishes to leave [facility], staff will contact [facility] Crisis Screener ([phone]) and On-Call Cushion Cover Inspector ([phone]) as soon as possible. In the event of elopement, notify [place] [employer] ([phone]). Patient is currently involuntarily at [facility]. [facility] Frontline Fire Alarm Repairer will continue seeking placement. Please contact the Diesel Engine Inspector Cushion Cover Inspector ([phone]) for any needed changes to Safety Plan. Safety plan has been provided to interdepartmental care team. Patient will be transported by metal moulder's assistant at time of discharge.
--- NOTE | 2020-08-08 09:10 | MHPN_ITS ---
Date of service: 08/08/20 Time of Service: 09:10 Mental Health Crisis Note Presenting Issue How did you arrive at the ED and why did you come: Pt arrived via his care providers on 08.03.2020 after he was responding to internal stimuli telling him to walk out the closest exit to get on a plane in the field. Precipitating Factors Pt noted that he dislikes it when people ask him about SI stating you can't kill someone who is already . He denied HI. Pt endorsed that he is still experiencing auditory hallucinations. Disposition BEHAVIOR: Pt engaged in the evaluation even though he recalls answering the questions daily and is annoyed at them. EYE CONTACT: Eye contact is fair MOOD: Mood is self reported to be not good. He presents as depressed. AFFECT: Flat APPETITE: Good SLEEP(trouble falling/staying asleep: Pt reported that he struggled to sleep last night due to the auditory hallucinations and TV which made it difficult to sleep. Plan Pt will remain on EE status and be screened twice daily by [facility] while they seek placement. Signature Clinician's Name/Title: Rajwinder Flores MS, [facility] Emergency Services Clinician, [facility]
--- NOTE | 2020-08-08 13:07 | W.PM.PROGNOT ---
Date of Service Date of service: 08/08/20 Time of Service: 13:07 Assessment and Plan Assessment and plan (1) Suicidal ideations: Status: Acute Assessment and plan: Await a psychiatric bed in involuntary status with CPSO and suicide precautions (2) Hallucinations: Status: Acute Assessment and plan: Part of psychosis. The patient does have underlying diagnosis of schizophrenia. Not having at this time. (3) HTN (hypertension): Status: Chronic Assessment and plan: continue lisinopril (4) COPD (chronic obstructive pulmonary disease): Status: Chronic Assessment and plan: not in acute exacerbation. He does not usually wear oxygen will do exercise oximetry d/c oxygen, as along as he is above 89% he does not require oxygen as he does not wear it at CI (5) Obstructive sleep apnea: Status: Chronic Assessment and plan: The patient states he does not use CPAP at home We will provide O2 here. (6) Diabetes: Status: Chronic Assessment and plan: continue diabetic diet blood sugars stable will discontinue blood sugar checks and resume metformin A1C 6.4 in june 2020 (7) DVT prophylaxis: Status: Acute Assessment and plan: SC lovenox (8) Discharge planning issues: Status: Acute Assessment and plan: Full code Obs awaiting placement discussed with Dr. Farmer Subjective Subjective Patient reports: no new complaints, still having pain, tolerating liquids well, tolerating a regular diet and afebrile Interval history since last seen: remains medically stable, no behavioral issues Exam Narrative Exam Narrative: General: Obese Middle-aged male Sitting up in bed, awake alert and oriented, denies, on oxygen but does not usually wear it. Will do ambulatory pulse ox Neurological: A&ox3, no focal deficits Psychiatric:States no SI today Skin: Visible skin intact HEENT: Atraumatic, normocephalic, EOMI, MMM, clear oropharynx, no lymphadenopathy, goiter or JVD, large neck diameter Cardiovascular: RRR, no m/r/g Lungs: LSC, denies CP Gastrointestinal: soft, nontender, nondistended Extremities: +1 pitting edema at B ankles, trace pedal pulses B Objective Last Vital Signs Temp 36.7 C 08/08/20 08:00 Pulse 61 08/08/20 08:00 Resp 18 08/08/20 08:00 BP 142/85 H 08/08/20 08:00 Pulse Ox 92 08/08/20 08:00
[2020-08-08 16:40] VITALS: BP 157/81; PULSE 65; RESP 17; TEMP 37.2; O2SAT 93
--- NOTE | 2020-08-08 18:38 | CMPROGNOTE_ITS ---
- If Service Date Differs Date of service: 08/08/20 Time of Service: 18:39 Care Management Progress Note S/O: Nathan is laying in bed watching television when CM comes to meet with him today. He talks about his sister and shares how he's helped her out but she has never been there for him when he needed help. He talks about some of his struggles and tells CM that he hears voices and these voices are especially loud at night. He also at times sees flashes of light and what he describes as b ubbles in his peripheral vision. CM will continue to follow. A: Nathan is a 60 year old male who presents in the ED for suicidal ideation, hallucinations, and hypertension. P: [facility] to [facility], [facility], [facility], and [facility] for review[facility] and [facility] have declined Nathan, [facility] is currently full and [facility] has yet to make a decision. Nathan will, therefore, remain at [facility] on involuntary status while [facility] continues to seek a placement for him. CM will continue to follow.
--- NOTE | 2020-08-08 18:38 | PDOC.CMPRO ---
- If Service Date Differs Date of service: 08/08/20 Time of Service: 18:39 Care Management Progress Note S/O: Nathan is laying in bed watching television when CM comes to meet with him today. He talks about his sister and shares how he's helped her out but she has never been there for him when he needed help. He talks about some of his struggles and tells CM that he hears voices and these voices are especially loud at night. He also at times sees flashes of light and what he describes as bubbles in his peripheral vision. CM will continue to follow. A: Nathan is a 60 year old male who presents in the ED for suicidal ideation, hallucinations, and hypertension. P: Referrals were [facility] to [facility], [facility], [facility], and [facility] for review. [facility] and [facility] have declined Nathan, [facility] is currently full and [facility] has yet to make a decision. Nathan will, therefore, remain at [facility] on involuntary status while [facility] continues to seek a placement for him. CM will continue to follow.
[2020-08-08] MEDS: Simvastatin 20 MG TAB PO (20:38)
[2020-08-08 22:00] VITALS: BP 149/72; PULSE 57; RESP 16; TEMP 36.6; O2SAT 90
[2020-08-09] MEDS: ARIPiprazole 2 MG TAB PO (08:12)
[2020-08-09] MEDS: diazePAM 5 MG TAB PO ×3 (08:12→19:54)
[2020-08-09] MEDS: Cholecalciferol (Vitamin D3) 1,000 UNIT TAB 1000 UNITS PO (08:13)
[2020-08-09] MEDS: metFORMIN 500 MG TAB PO ×2 (08:13→16:58)
[2020-08-09] MEDS: Lisinopril 20 MG TAB PO (08:13)
[2020-08-09 09:23] VITALS: BP 120/74; PULSE 62; RESP 18; TEMP 36.8; O2SAT 92
[2020-08-09] MEDS: Lidocaine 5% Patch 1 PATCH TP (10:20)
--- NOTE | 2020-08-09 10:40 | W.INMHPGNOTE ---
Date of service: 08/09/20 Time of Service: 10:45 Mental Health Crisis Note Presenting Issue How did you arrive at the ED and why did you come: Pt has been at [facility] since 07.31.2020 after he was experiencing auditory hallucinations telling him to go to the closest exit to get on a plane that was waiting in the field. Precipitating Factors Pt again stated today How can you kill someone who is already ? He denied HI. Disposition BEHAVIOR: Pt is cooperative, polite and engaged in the evaluation. EYE CONTACT: Pt makes good eye contact. MOOD: Pt presents as depressed. AFFECT: Pt's affect is congruent with his mood. APPETITE: Pt reported he is eating. SLEEP(trouble falling/staying asleep: Pt reported that he is trying to sleep but still struggles and that he had music on last night which helped some. Plan Pt will remain at [facility] pending acceptance to a psychiatric facility. He is still experiencing what appears to be depression and continues to endorse auditory hallucinations. He will continue to be reevaluated twice daily by [facility] until placement is found. Signature Clinician's Name/Title: Rajwinder Flores MS, [facility] Emergency Services Clinician, [facility]
[2020-08-09] MEDS: Acetaminophen 325 MG TAB 650 MG PO (13:16)
--- NOTE | 2020-08-09 15:00 | W.PM.DS.N ---
Date of service: 08/09/20 Time of Service: 15:00 DS: Diagnosis Discharge Diagnosis (1) Suicidal ideations: Status: Acute (2) Hallucinations: Status: Acute (3) HTN (hypertension): Status: Chronic (4) COPD (chronic obstructive pulmonary disease): Status: Chronic (5) Obstructive sleep apnea: Status: Chronic (6) Diabetes: Status: Chronic Discharge Plan Disposition Patient Disposition: [facility] Condition: Stable Discharge Details Reason For Visit: SUICIDAL IDEATION, SCHIZOPHRENIA, PSYCHOSIS Admit Date/Time: 08/03/20 18:28 Admit Provider: Jordyn Whiting Attending Provider: Jordyn Whiting [facility] Hospital Course: Mr Colunga is a 60 year old male with history of paranoid schizophrenia, as well as O2-dependent COPD (supposed to be on 2L of O2 at all times, per patient, but refused O2 in the ED), as well as history of JEREMIAS, not on CPAP, NIDDM2,? hypertension, hyperlipidemia, who was brought in to [facility] ED on 07/31/2020 for SI as well as delusions, auditory and visual hallucinations. He was awaiting a psychiatric bed in involuntary status in the ED, but as no bed is yet available, and the patient has been cooperative with taking his medications, so was placed on observation on the medical surgical floor while awaiting a psychiatric bed. He has remained medically stable with no behavioral disturbances. His blood sugars have been controlled with diet so monitoring before meals discontinued. His last hemoglobin A1c was 6.1 in june of 2020. A bed has been secured at [facility] for inpatient psychiatric care. He is being [facility] by [facility]. discharge discussed with Dr Farmer Home Meds and New Rx's Prescriptions: Continued simvastatin 20 mg tablet 20 mg PO DAILY RF: 0 lisinopril 10 mg tablet 20 mg PO DAILY RF: 0 cholecalciferol (vitamin D3) 25 mcg (1,000 unit) tablet 25 mcg PO DAILY RF: 0 Viibryd 10 mg tablet 10 mg PO DAILY RF: 0 oxybutynin chloride 5 mg Tablet 30 mg PO DAILY RF: 0 metformin 500 mg Tablet 500 mg PO BID RF: 0 hydrocortisone 1 % Cream 1 applic topical BID RF: 0 albuterol sulfate 90 mcg/actuation Hfa Aerosol Inhaler 2 puff INHALATION PRN PRNRF: 0 aripiprazole [Abilify] 2 mg Tablet 2 mg PO DAILY RF: 0 Discharge Instructions Instructions: Suicide Prevention (DC) Referrals: Sun Mobley [Primary Care Provider] - Activity:: Activity as Tolerated Equipment/Supplies:: No Equipment Needed Diet:: Carb Counting Discharge Orders Discharge Orders: Discharge Order (Routine); Ordered 08/09/20 Ordered By: Rosaline Justice DS: Summary Time Spent with Patient providing and/or coordinating discharge services: Greater than 30 minutes Status at Discharge Functional status at discharge: independent ambulation Overall status at discharge: patient is not back to baseline Mental Status: mental status grossly normal Speech and Movement: speech and movement normal Mood: congruent mood Affect: normal affect Exam Narrative Exam Narrative: General: Obese Middle-aged male Sitting up in bed, awake alert and oriented, denies, on oxygen but does not usually wear it. Will do ambulatory pulse ox Neurological: A&ox3, no focal deficits Psychiatric:States no SI today Skin: Visible skin intact HEENT: Atraumatic, normocephalic, EOMI, MMM, clear oropharynx, no lymphadenopathy, goiter or JVD, large neck diameter Cardiovascular: RRR, no m/r/g Lungs: LSC, denies CP Gastrointestinal: soft, nontender, nondistended Extremities: +1 pitting edema at B ankles, trace pedal pulses B Psych Mental Status: mental status grossly normal Speech and Movement: speech and movement normal Mood: congruent mood Affect: normal affect DS: Data Vitals/I&O Vitals and I&O: Vital Signs Temperature 36.8 C 08/09/20 09:23 Temperature Source Temporal Artery Scan 08/09/20 09:23 Pulse 62 08/09/20 09:23 Pulse Rhythm Regular 08/08/20 20:00 Respiratory Rate 18 08/09/20 09:23 Respiratory Effort Non-Labored 08/09/20 08:30 Respiratory Depth Normal 08/09/20 08:30 Respiratory Pattern Normal 08/09/20 08:30 Blood Pressure 120/74 08/09/20 09:23 Blood Pressure Position Sitting 07/31/20 08:11 Pulse Oximetry 92 08/09/20 09:23 Oxygen Delivery Method Room Air 08/09/20 09:23 Oxygen Flow Rate 0 08/09/20 09:23 Pain Level 8 08/09/20 13:16 Comment 08/09/20 09:23 Intake & Output 08/08/20 08/09/20 08/09/20 23:59 11:59 23:59 Intake Total 480 / 1260 840 / 1320 480 / 1320 Balance 480 / 1260 840 / 1320 480 / 1320 Intake: Oral 480 / 1260 840 / 1320 480 / 1320 Other: Urine Color Yellow Urine Appearance Clear Urine Odor Normal Normal Comment Pt was incontinent in his brief, on the bed and on the floor. Nathan can be incont of B&B. Wears brief. Voiding Methods Diaper Toilet Toilet Incontinent [facility] Medical History (Updated 08/06/20 @ 09:13 by Rosaline Justice NP) COPD (chronic obstructive pulmonary disease) HTN (hypertension) Hyperlipidemia Obesity (BMI 30-39.9) Obstructive sleep apnea Schizophrenia Family History Other Adopted Social History Smoking/Tobacco Use Status: Former Tobacco Use Smoking risk assessment performed?: Yes Alcohol Intake: former Drug use: Never Substance use type: does not use Do you feel safe at home: No (hallucinating re dying) Do you feel safe in your relationship?: Yes
--- NOTE | 2020-08-09 17:28 | PDOC.CMDIS ---
- If Service Date Differs Date of service: 08/09/20 Time of Service: 17:32 LACE Index Scoring Tool - Questions: Length of Stay (in days): 4 - 6 Acuity (Admit via E.D.?): Yes Comorbidities: Chronic Pulmonary Disease E.D. Visits: 1 - Answers: Total Score: 10 Risk of Readmission: High Risk Care Management Discharge Reason for Hospitalization: SI, Schizophrenia, Psychosis Discharge Plan: Nathan taylor presented to [facility] ED from [facility] where he was placed from outside of the local area. Reportedly he had been refusing psychotropic medications prescribed to manage schizophrenia for a long period of time. Nathan will transfer to [facility] for Psychiatric stabilization. He will transport via [facility], funded by [facility] due to involuntary status. Patient/Family Education Needs: Review of mental health transfer coordination, legal process specialist support, patient rights. Services Needed at Discharge: Psychiatric Facility, Transportation - Disposition Disposition: [place] Transport via of: [employer] ([facility]. Patient accepted at 1530. Transport available at 1999. )
[2020-08-09] MEDS: Simvastatin 20 MG TAB PO (19:53)
[2020-08-09] MEDS: Lidocaine Patch Removal 1 EACH TD (19:54)
--- NOTE | 2020-08-09 21:04 | NUR.NOTE ---
Nursing Note: Patient discharged at 20:58 to transport to [place] by this RN. Patient was escorted by three Ebd Teacher out of the building sent with his two belonging bags and medications from the locked cart. Patient was calm and cooperative.
== END 2020-08-09 20:58 | disposition short-term general hospital (02) ==
LOC: ER 08-03 14:56 → MS 08-03 20:00
PROVIDERS: Physician Assistant; Student in an Organized Health Care Education/Training Program; Admitting Provider Internal Medicine; Emergency Provider Physician Assistant; PCP Nurse Practitioner Family; Visit Provider Internal Medicine
DX: F20.9 Schizophrenia, unspecified (principal); R45.851 Suicidal ideations; J44.9 Chronic obstructive pulmonary disease, unspecified; I10 Essential (primary) hypertension; Z91.14 Patient's other noncompliance with medication regimen; Z20.822 Contact with and (suspected) exposure to COVID-19; F17.210 Nicotine dependence, cigarettes, uncomplicated; G47.33 Obstructive sleep apnea (adult) (pediatric); Z99.81 Dependence on supplemental oxygen; E78.5 Hyperlipidemia, unspecified
CPT/HCPCS: 36415; 36416; 80053; 80307; 82805; 82962; 85027; 87635; 93005; 94060; 94640; 99285; J1650; 70450; 71045; 80320; 80329; 81003; 84443; 85025; 93010; 99217; 99219; 99225; 99226; G0378; J3490; J7512; J7620

== ENCOUNTER → 2021-02-06 11:01 | Outpatient (BNVA) | payer MEDICARE, MEDICAID, SELFPAY | PROVIDERS: PCP Nurse Practitioner Family; Referring Provider Nurse Practitioner Family; Visit Provider Nurse Practitioner Gerontology | DX: N39.41 Urge incontinence (principal); Z59.00 Homelessness unspecified; E11.9 Type 2 diabetes mellitus without complications; I10 Essential (primary) hypertension; J44.9 Chronic obstructive pulmonary disease, unspecified; Z91.14 Patient's other noncompliance with medication regimen | CPT/HCPCS: 99204; 99214 ==

== ENCOUNTER → 2021-03-13 13:21 | Outpatient (BNVA) | payer MEDICARE, MEDICAID, SELFPAY | PROVIDERS: PCP Nurse Practitioner; Referring Provider Nurse Practitioner Family; Visit Provider Nurse Practitioner Gerontology | DX: R32 Unspecified urinary incontinence (principal); Z59.00 Homelessness unspecified; Z91.14 Patient's other noncompliance with medication regimen | CPT/HCPCS: 99214 ==

== ENCOUNTER 2021-08-29 19:05 | Observation (INO) | payer MEDICARE, MEDICAID, SELFPAY ==
[2021-08-29] VITALS (22 sets, daily range): BP systolic 153–208; BP diastolic 80–155; PULSE 69–158; RESP 11–24; TEMP 36.6–36.8; O2SAT 84–96
--- NOTE | 2021-08-29 19:10 | ED.GENADUL_ITS ---
Discharge Plan Disposition Patient Disposition: [facility] INPATIENT Condition: Stable Discharge Details Clinical Impression: Pneumonia, Acute exacerbation of chronic obstructive pulmonary disease, Supplemental oxygen dependent Admit Date/Time: 08/29/21 21:25 Admit Provider: Barrington De La O Attending Provider: Barrington De La O Primary Care Provider: Hina Hadley ED Provider: Kori Salazar Discharge Data Discharge Date/Time-TO BE ENTERED AT DEPARTURE: 08/30/21 00:32 Medical Decision Making 1918 -- 61-year-old male with a history of obesity, diabetes, hypertension, hyperlipidemia, bipolar disorder, schizophrenia and COPD chronically on 2 L nasal cannula oxygen who presents for fever, cough, shortness of breath for the past few days while sleeping outside after he got kicked out of the [employer]. Oxygen saturation 89% on room air. Increased to high 90s on his baseline 2 L nasal cannula oxygen. He is speaking in full sentences and demonstrates no signs of respiratory distress. He has diminished breath sounds and scattered wheezing throughout. No lower extremity edema. Differential diagnosis includes acute on chronic COPD, CHF, bronchitis, pneumonia, COVID 19. History and presentation does not appear consistent with PE or ACS. Considering his age and history, will obtain screening labs, EKG, chest x-ray and give duo nebs, IV Solu-medrol and obtain Fluvid. 2100 --labs and imaging reviewed. White blood cell count 11. Troponin negative. Fluvid negative. Chest x-ray notes a multifocal pneumonia or edema. BNP 492. Patient reassessed and he feels better. Breath sounds improved throughout. His oxygen saturation recently decreased to high 80s on his 2 L and was titrated up to 4 L. He has now been titrated down to 2 L and oxygen saturation mid 90s. Patient does not feel he can obtain access to his oxygen this evening. Will admit for treatment for possible pneumonia with IV antibiotics, continued monitoring overnight with plan for ensuring that patient will have access to his oxygen upon discharge. Case discussed with hospitalist who accepts patient for admission. Medical Records Medical records reviewed: Yes I reviewed the patient's medical records. Imaging Data Radiologic Study: Radiologist's impression: XR Chest Exam date and time: 08/29/2021 7:40 PM Age: 61 years old Clinical indication: Other: Cough, SOB R/O acute disease TECHNIQUE: Imaging protocol: Radiologic exam of the chest. Views: 1 view. COMPARISON: CR XR PORTABLE CHEST AP 08/01/2020 10:48 AM FINDINGS: Lungs: Mixed airspace and interstitial opacities are noted in both lungs, primarily in the lung bases. Upper lung zones are clear. Pulmonary vessels are not congested. Pleural spaces: Unremarkable. No pleural effusion. No pneumothorax. Heart/Mediastinum: Unremarkable. No cardiomegaly. Bones/joints: Unremarkable. IMPRESSION: Multifocal pneumonia and/or edema. Lab Data Lab results reviewed: Yes I reviewed the patient's lab results. Labs: Laboratory Tests Range/Units 08/29/21 08/29/21 08/29/21 19:45 19:45 19:45 WBC (4.4-10.8) 10^3/uL 11.08 H RBC (4.36-5.78) 10^6/uL 5.98 H Hgb (13.5-17.5) g/dL 17.0 Hct (40.0-50.0) % 53.1 H MCV (80-95) fL 89 MCH (27.0-33.0) pg 28.4 MCHC (32.0-36.0) % 32.0 RDW (11.8-14.1) % 14.1 Plt Count (130-400) 10^3/uL 315 MPV (8.0-11.0) fL 9.5 Immature Gran % 0.3 Neutrophils % 71.7 Lymphocytes % 18.1 Monocytes % 8.6 Eosinophils % 0.9 Basophils % 0.4 Nucleated RBC % (0.0-0.3) % 0.0 Absolute Neutrophils (1.2-6.7) 10^3/uL 7.94 H Absolute Lymphocytes (1.2-3.4) 10^3/uL 2.01 Absolute Monocytes (0.1-0.8) 10^3/uL 0.95 H Absolute Eosinophils (0.0-0.7) 10^3/uL 0.10 Absolute Basophils (0.0-0.2) 10^3/uL 0.04 Sodium (136-145) mmol/L 140 Potassium (3.5-5.1) mmol/L 3.8 Chloride (98-107) mmol/L 99 Carbon Dioxide (21.0-32.0) mmol/L 35.2 H Anion Gap (3-11) mmol/L 5.8 BUN (7-18) mg/dL 15 Creatinine (0.70-1.30) mg/dL 0.9 Estimated GFR/1.73 m2 (mL/min/1.73m2) >= 60.00 Glucose (74-106) mg/dL 157 H Calcium (8.5-10.1) mg/dL 8.8 Magnesium (1.8-2.4) mg/dL 2.0 Total Bilirubin (0.2-1.0) mg/dL 0.3 AST (15-37) U/L 16 ALT (16-63) U/L 16 Alkaline Phosphatase (46-116) U/L 102 Troponin I (<or=60) ng/L < 50 Total Protein (6.4-8.2) g/dL 7.4 Albumin (3.4-5.0) g/dL 3.7 COVID-19 Source Nasopharynx SARS-CoV-2 (PCR) (Negative) Negative Influenza Type A (PCR) (Negative) Negative Influenza Type B (PCR) (Negative) Negative RSV (PCR) (Negative) Negative ECG Data Attestation: I personally reviewed and interpreted this ECG (s) as follows: Interpretation: Rate of 74, sinus, right bundle branch block, no STEMI. HPI General Mode of arrival: EMS . Date/Time Provider Initiated Documentation: 08/29/21 19:11 . Limitations to Documentation: no limitations . Information obtained by: patient . HPI Narrative: Patient is a 61-year-old male with a history of obesity, diabetes, hyperlipidemia, hypertension, bipolar disorder, schizophrenia, COPD chronically on 2 L nasal cannula oxygen who presents to the ED with complaint of feeling feverish, cough, shortness of breath for the past few days and sleeping outside. Patient states he was kicked out of the [employer] in 2 days ago due to smoking and states he has been sleeping outside and has not had his oxygen. He states he can access his oxygen inside the [place] and but did not. He states he has had chest congestion but admits to mainly dry cough. He is unsure of his baseline oxygen saturation. Related Data Home Medications Medication Instructions Recorded Confirmed cholecalciferol (vitamin D3) 25 25 mcg PO DAILY 07/31/20 08/29/21 mcg (1,000 unit) tablet hydrocortisone 1 % topical cream 1 applic topical BID 05/18/21 06/15/22 aripiprazole 5 mg tablet (Abilify) 5 mg PO DAILY 03/13/21 08/29/21 lisinopril 30 mg tablet 30 mg PO DAILY 03/13/21 08/29/21 metformin 750 mg tablet,extended 750 mg PO DAILY 03/13/21 08/29/21 release 24 hr oxybutynin chloride 10 mg 20 mg PO DAILY #60 tabs 03/13/21 08/29/21 tablet,extended release 24 hr vilazodone 40 mg tablet (Viibryd) 40 mg PO DAILY 03/13/21 08/29/21 ziprasidone HCl 40 mg capsule 40 mg PO QHS 08/29/21 08/30/21 Previous Rx's Medication Instructions Recorded oxybutynin chloride 10 mg 20 mg PO DAILY #60 tabs 03/13/21 tablet,extended release 24 hr Allergies Allergy/AdvReac Type Severity Reaction Status Date / Time Penicillins Allergy Severe Anaphylaxis Unverified 08/30/21 08:45 dextromethorphan Allergy Mild Skin Rash Unverified 08/30/21 08:47 [From Dimetapp Cold-Congestion] diphenhydramine Allergy Mild Skin Rash Unverified 08/30/21 08:47 [From Dimetapp Cold-Congestion] guaifenesin Allergy Mild Skin Rash Unverified 08/30/21 08:47 [From Dimetapp Cold-Congestion] phenylephrine Allergy Mild Skin Rash Unverified 08/30/21 08:47 [From Dimetapp Cold-Congestion] pseudoephedrine Allergy Mild Skin Rash Unverified 08/30/21 08:47 [From Dimetapp Cold-Congestion] bupropion [From Wellbutrin] AdvReac Intermediate Other (See Unverified 08/30/21 08:47 Comment) General Stated Complaint: SOB SANTA: 2 Review of Systems All systems reviewed & are unremarkable except as noted in HPI and below Constitutional Constitutional: Denies chills, Denies excessive sweating, Denies fatigue, Denies fever(s), Denies weakness and Denies weight loss Eyes Eyes: Reports system reviewed and no additional complaints, except as documented and Denies blurry vision ENT Ears, Nose, Mouth, and Throat: Denies vertigo, Denies dizziness, Denies otalgia, Denies nasal congestion, Denies sore throat and Denies throat swelling Cardiovascular Cardiovascular: Reports chest pain, Denies syncope, Denies rapid heart rate and Reports dyspnea Respiratory Respiratory: Denies chest congestion, Reports cough, Denies pain on inspiration and Reports dyspnea Gastrointestinal Gastrointestinal: Denies abdominal pain, Denies diarrhea and Denies vomiting Genitourinary Genitourinary: Denies hematuria, Denies dysuria and Denies flank pain Musculoskeletal Musculoskeletal: Denies back pain and Denies joint swelling Integumentary/Breasts Skin/Breast: Denies lesions and Denies rash Neurologic Neurologic: Denies behavioral changes, Denies confusion, Denies vertigo, Denies dizziness, Denies syncope, Denies localized weakness and Denies weakness Psychiatric Psychiatric: Denies behavioral changes, Denies confusion and Denies depression Endocrine Endocrine: Denies excessive sweating and Denies fatigue Hematologic/Lymphatic Hematologic/Lymphatic: Denies easy bruising and Denies lymphadenopathy Allergic/Immunologic Allergic/Immunologic: Denies throat swelling PFSH All Active Problems (Updated 08/29/21 @ 22:02 by Mindi Castro MD) Respiratory failure with hypoxia (Acute) Pneumonia (Acute) Acute exacerbation of chronic obstructive pulmonary disease (Acute) Supplemental oxygen dependent (Acute) Homeless single person (Acute) Bipolar 1 disorder (Acute) Obesity (Chronic) Incontinence of urine (Acute) Diabetes (Chronic) Discharge planning issues (Acute) DVT prophylaxis (Acute) HTN (hypertension) (Chronic) Obstructive sleep apnea (Chronic) COPD (chronic obstructive pulmonary disease) (Chronic) Suicidal ideations (Acute) Hallucinations (Acute) Hypertension (Chronic) Medical History (Updated 08/29/21 @ 22:02 by Mindi Castro MD) Hyperlipidemia Obesity (BMI 30-39.9) Palliative care patient Schizophrenia Family History Other Adopted Social History (Updated 12/05/20 @ 16:51 by Kathya Wang MD) Smoking/Tobacco Use Status: Current every day Tobacco Type: cigarettes Smoking risk assessment performed?: Yes Alcohol Intake: former Drug use: Never Substance use type: does not use Caregiver/Support person: No Household members: none Housing: homeless Number of Children: 0 Communication Needs: Hard of Hearing and Corrective Lenses Education Level: high school Do you need help understanding health information?: Always current occupation: disabled due to mental illness Pets and animals: No Current gender identity: male What is your relationship status?: never How often do you talk on the phone with friends or family?: never How often do you get together with friends or relatives?: never Panel score (0-1 are the most socially isolated patients): 0 What type of physical activity do you participate in: none and sedentary lifestyle Frequency: does not exercise Special mannie needs: No Seatbelt use: always Do you feel safe at home: No (hallucinating re dying) Do you feel safe in your relationship?: Yes Additional Social history: Nathan presents with his [facility] worker, Marko King. Nathan is homeless, currently housed at [facility]. He has been asked to leave, partly as his housing was paid for through [employer] grants that have come to an end, and partly due to his chronic urinary incontinence. He has ruined more than one mattress since living at the [facility]. He used to live in [place], [place] with his mother. He says I'm not allowed to speak to her. Marko and other [facility] staff are trying to find Nathan placement. He lived briefly at the [facility] before being transferred to the [facility]. Most of his health problems are psychiatric in nature, including his poor self care. We were able to get him an appointment with Hina Hadley NP at [facility] for the day after my visit with Nathan. Exam Const General: cooperative and no acute distress Nutritional Appearance: obese morbidly obese Orientation: alert, awake and oriented x3 HENMT Head: normal to inspection Ears: hearing grossly normal bilaterally, external ears normal and TM's normal bilaterally General nose exam: external nose normal Face and sinus: normal facial exam Mouth: oral mucosae normal Teeth and gingiva: dentition normal Throat: posterior oropharynx normal Eyes General: appearance normal, both eyes and all related structures Eyelids: eyelids normal Pupils: PERRL EOM: EOM intact bilaterally Neck Neck: normal visual inspection Lymphatic: no lymphadenopathy noted Chest Chest: normal inspection of the chest Resp Effort & Inspection: normal respiratory effort and able to speak in complete sentences Auscultation: diminished lung sounds bilaterally throughout and wheezes scattered wheezes Cardio Rate: regular rate Rhythm: regular rhythm GI Inspection: normal to inspection and obesity Palpation: soft, not firm, no guarding, no hepatosplenomegaly, no masses and nontender Auscultation: normal bowel sounds Back/Spine/Pelvis Back: no CVA tenderness Skin General skin exam: no rashes or lesions noted Neuro General: patient alert and patient awake Cognition: normal cognition Speech: speech normal Gait: normal gait Motor: muscle tone normal throughout Sensory Exam: no sensory deficits noted Extrem General: normal to inspection, full ROM, capillary refill normal and no edema Psych Appearance: grossly normal Mental Status: mental status grossly normal Speech and Movement: speech and movement normal Affect: normal affect Thought Process: normal
--- NOTE | 2021-08-29 19:30 | DI.RAD_ITS ---
Exam(s) XR PORTABLE CHEST AP EXAM: XR PORTABLE CHEST AP CLINICAL HISTORY: cough, sob, r/o acute disease. TECHNIQUE: 2D digital imaging was performed. COMPARISON: CR XR PORTABLE CHEST AP from 08/01/2020 FINDINGS: Single AP portable view. Heart size is upper normal. The mediastinum is not widened. There is patchy infiltrate in the lateral left lung. Also in the lower right lung field. No pleural effusions. There is relative sparing of the upper lobe regions. IMPRESSION: Bilateral infiltrates. No obvious pleural effusions. DATA REPOSITORY: RADIATION DOSE DELIVERED: All CT scans at this facility use at least one of these dose optimization techniques: automated exposure control; mA and/or kV adjustment per patient size (includes targeted e xams where dose is matched to clinical indication); or iterative reconstruction.
[2021-08-29] MEDS: methylPREDNISolone SUCC 125 MG VIAL IVP (19:51)
[2021-08-29 19:52] LABS: Abs Immature Grans 0.03 10^3/uL (0.0-0.06); Absolute Basophil Count 0.04 10^3/uL (0.0-0.2); Absolute Monocyte Count 0.95 10^3/uL (0.1-0.8); Basophils % 0.4; Eosinophils % 0.9; HCT 53.1 % (40.0-50.0); Immature Grans % 0.3; Lymphocytes % 18.1; MCH 28.4 pg (27.0-33.0); MCV 89 fL (80-95); MPV 9.5 fL (8.0-11.0); Monocytes % 8.6; Neutrophils % 71.7; Platelet Count 315 10^3/uL (130-400); RBC 5.98 10^6/uL (4.36-5.78); RDW 14.1 % (11.8-14.1); RDW-SD 46.1 fL; WBC 11.08 10^3/uL (4.4-10.8)
[2021-08-29 19:53] LABS: Absolute Lymphocyte Count 2.01 10^3/uL (1.2-3.4); Absolute Neutrophil Count 7.94 10^3/uL (1.2-6.7)
--- NOTE | 2021-08-29 20:00 | RT.EKG_ITS ---
APPROVED REPORT Exam: Resting ECG Reason for Exam: chest pain Patient Location: E HR:74 bpm ECG Measurements Heart Rate 74 AXIS OH 135 P 70 QRSd 139 QRS 7 QT 411 T -29 QTc 456 Conclusion Sinus rhythm...normal P axis, V-rate 60- 99 Right bundle branch block...QRSd>120, terminal axis(90,270). Sinus. RBBB. No STEMI. I have reviewed and interpreted ECG and agree with software generated interpretation.
[2021-08-29] MEDS: Albuterol/Ipratropium 3 ML UPD VIAL UPD (20:01)
[2021-08-29 20:08] LABS: ALT 16 U/L (16-63); AST 16 U/L (15-37); Albumin 3.7 g/dL (3.4-5.0); Alkaline Phosphatase 102 U/L (46-116); Anion Gap 5.8 mmol/L (3-11); BUN 15 mg/dL (7-18); Bilirubin, Total 0.3 mg/dL (0.2-1.0); CO2 35.2 mmol/L (21.0-32.0); CREATININE 0.9 mg/dL (0.70-1.30); Calcium 8.8 mg/dL (8.5-10.1); Chloride 99 mmol/L (98-107); Glucose 157 mg/dL (74-106); Potassium 3.8 mmol/L (3.5-5.1); Sodium 140 mmol/L (136-145); Total Protein 7.4 g/dL (6.4-8.2); Troponin I < 50 ng/L (<or=60)
[2021-08-29] MEDS: Lisinopril 10 MG TAB 30 MG PO (20:14)
--- NOTE | 2021-08-29 20:19 | NUR.NOTE ---
Pt took his own home metformin 750, lisinopril, Vilbryd, Aripiprazole, Vit D3.
--- NOTE | 2021-08-29 20:25 | DI.VRAD_ITS ---
PROCEDURE INFORMATION: Exam: XR Chest Exam date and time: 08/29/2021 7:40 PM Age: 61 years old Clinical indication: Other: Cough, SOB R/O acute disease TECHNIQUE: Imaging protocol: Radiologic exam of the chest. Views: 1 view. COMPARISON: CR XR PORTABLE CHEST AP 08/01/2020 10:48 AM FINDINGS: Lungs: Mixed airspace and interstitial opacities are noted in both lungs, primarily in the lung bases. Upper lung zones are clear. Pulmonary vessels are not congested. Pleural spaces: Unremarkable. No pleural effusion. No pneumothorax. Heart/Mediastinum: Unremarkable. No cardiomegaly. Bones/joints: Unremarkable. IMPRESSION: Multifocal pneumonia and/or edema. Dictated and Authenticated by: Barrington Matthews MD. Ordering:JENNIFER Sheikh MD
[2021-08-29 20:29] LABS: COVID-19 PCR Negative (Negative); Influenza A PCR Negative (Negative); Influenza B PCR Negative (Negative); RSV PCR Negative (Negative)
[2021-08-29 20:33] LABS: Source Nasopharynx
[2021-08-29] MEDS: DOXYCYCLINE 100 MG in Normal Saline 100 ML IVPB (21:30)
[2021-08-29] MEDS: cefTRIAXone 2 GM/50 ML BAG IVPB (21:39)
--- NOTE | 2021-08-29 21:51 | HPE_ITS ---
Date of service: 08/29/21 Time of Service: 21:52 Assessment and Plan Assessment and plan (1) Acute exacerbation of chronic obstructive pulmonary disease: Status: Acute Assessment and plan: This 61 yo man is being admitted under observation for a COPD exacerbation potentially from a pneumonia. He does not have access to his oxygen currently, which makes him unsafe for discharge. He is wheezing and dyspneic so will treat him for a COPD exacerbation and tomorrow work on ensuring he has O2 available to him. He is not on any maintenance inhalers for his COPD (which by PFT's is severe). - ceftriaxone and doxycycline given in ED - procalcictonin tomorrow morning - recommend starting him on Symbicort 80-4.5 and Spiriva - albuterol prn - Duonebs prn (2) Pneumonia: Status: Acute Assessment and plan: treatment with ceftriacone and azithromycin as above can d/c ceftriaxone and continue azithromycin for COPD indication (3) Homeless single person: Status: Acute Assessment and plan: will need assistance from case management/social work (4) Bipolar 1 disorder: Status: Acute Assessment and plan: Unable to perform med rec overnight - will complete during the day tomorrow. (5) Diabetes: Status: Chronic Assessment and plan: Restart metformin once dosing verifies (6) HTN (hypertension): Status: Chronic Assessment and plan: Restart lisinopril after dosing verified (7) Obstructive sleep apnea: Status: Chronic Assessment and plan: patient not on CPAP at home (8) Respiratory failure with hypoxia: Status: Acute Assessment and plan: supplemental O2 for sats 88-92% work [facility] O2 therapy History of Present Illness Narrative: This is a 61 yo man with a significant psych history (last admission here at end of July was psych related) and severe oxygen dependant COPD (with intermitted compliance with O2) not on any inhaler therapy (per MAY) and who has JEREMIAS but does not wear CPAP who is being admitted for a COPD exacerbation and concern for a pneumonia. He does not have clear admission criteria, however he was kicked out' of the [employer] and left without his oxygen and reportedly has no way of obtaining them currently. His CXR is read as multilobar pneumonia, however I remain unconvinced of this fully, however will admit his to observation and treatment him for an exacerbation and for a potential pneumonia. He reports shortness of breath as well as a productive cough. The sputum is yellow. He feels as though his breathing is much improved already with oxygen and breathing treatments. He does still have a cough but this is also improving. He continues to smoke. He states he is supposed to be on inhalers but has not had these in some time. Review of Systems All systems reviewed & are unremarkable except as noted in HPI and below PFSH All Active Problems (Updated 08/29/21 @ 22:02 by Mindi Castro MD) Respiratory failure with hypoxia (Acute) Pneumonia (Acute) Acute exacerbation of chronic obstructive pulmonary disease (Acute) Supplemental oxygen dependent (Acute) Homeless single person (Acute) Bipolar 1 disorder (Acute) Obesity (Chronic) Incontinence of urine (Acute) Diabetes (Chronic) Discharge planning issues (Acute) DVT prophylaxis (Acute) HTN (hypertension) (Chronic) Obstructive sleep apnea (Chronic) COPD (chronic obstructive pulmonary disease) (Chronic) Suicidal ideations (Acute) Hallucinations (Acute) Hypertension (Chronic) Medical History (Updated 08/29/21 @ 22:02 by Mindi Castro MD) Hyperlipidemia Obesity (BMI 30-39.9) Palliative care patient Schizophrenia Family History Other Adopted Social History (Updated 12/05/20 @ 16:51 by Kathya Wang MD) Smoking/Tobacco Use Status: Current every day Tobacco Type: cigarettes Smoking risk assessment performed?: Yes Alcohol Intake: former Drug use: Never Substance use type: does not use Caregiver/Support person: No Household members: none Housing: homeless Number of Children: 0 Communication Needs: Hard of Hearing and Corrective Lenses Education Level: high school Do you need help understanding health information?: Always current occupation: disabled due to mental illness Pets and animals: No Current gender identity: male What is your relationship status?: never How often do you talk on the phone with friends or family?: never How often do you get together with friends or relatives?: never Panel score (0-1 are the most socially isolated patients): 0 What type of physical activity do you participate in: none and sedentary lifestyle Frequency: does not exercise Special mannie needs: No Seatbelt use: always Do you feel safe at home: No (hallucinating re dying) Do you feel safe in your relationship?: Yes Additional Social history: Nathan presents with his [facility] worker, Marko King. Nathan is homeless, currently housed at [facility]. He has been asked to leave, partly as his housing was paid for through [employer] grants that have come to an end, and partly due to his chronic urinary incontinence. He has ruined more than one mattress since living at the [facility]. He used to live in [place], [place] with his mother. He says I'm not allowed to speak to her. Marko and other [facility] staff are trying to find Nathan placement. He lived briefly at the [facility] before being transferred to the [facility]. Most of his health problems are psychiatric in nature, including his poor self care. We were able to get him an appointment with Hina Hadley NP at [facility] for the day after my visit with Nathan. Meds Allergies and Home Medications Allergies Allergy/AdvReac Type Severity Reaction Status Date / Time No Known Allergies Allergy Unverified 08/29/21 19:14 Home Medications Medication Instructions Recorded Confirmed Type cholecalciferol (vitamin D3) 25 25 mcg PO DAILY 07/31/20 08/29/21 History mcg (1,000 unit) tablet hydrocortisone 1 % topical cream 1 applic topical BID 08/01/20 08/29/21 History aripiprazole 5 mg tablet (Abilify) 5 mg PO DAILY 03/13/21 08/29/21 History lisinopril 30 mg tablet 30 mg PO DAILY 03/13/21 08/29/21 History metformin 750 mg tablet,extended 750 mg PO DAILY 03/13/21 08/29/21 History release 24 hr oxybutynin chloride 10 mg 20 mg PO DAILY #60 tabs 03/13/21 08/29/21 Rx tablet,extended release 24 hr vilazodone 40 mg tablet (Viibryd) 40 mg PO DAILY 03/13/21 08/29/21 History ziprasidone HCl 40 mg capsule 40 cap PO QHS 08/29/21 08/29/21 History Exam Narrative Exam Narrative: Gen: NAD, normal respiratory effort, obese HENT: PERRL, nasal turbinates normal without erythema or inflammation, moist ora l mucosa, Mallampati 2, No LAD or JVD Chest: No respiratory distress, normal appearance of chest, clear breath sounds bilaterally, no crackles or wheezes, normal inspiratory effort Heart: regular rate and rhythym, no murmurs, rubs or gallops Abdomen: Non-distended, soft, non tender Extremities: No clubbing, 1+ pedal edema, cyanosis, rashes Neuro: AAOx3 , non focal Psych: cooperative, appropriate mental affect Results Labs Result diagrams: 08/30/21 06:12 08/29/21 22:59 Labs: Laboratory Results - last 24 hr 08/29/21 08/29/21 08/29/21 19:45 19:45 19:45 WBC 11.08 H RBC 5.98 H Hgb 17.0 Hct 53.1 H MCV 89 MCH 28.4 MCHC 32.0 RDW 14.1 Plt Count 315 MPV 9.5 Immature Gran % 0.3 Neutrophils % 71.7 Lymphocytes % 18.1 Monocytes % 8.6 Eosinophils % 0.9 Basophils % 0.4 Nucleated RBC % 0.0 Absolute Neutrophils 7.94 H Absolute Lymphocytes 2.01 Absolute Monocytes 0.95 H Absolute Eosinophils 0.10 Absolute Basophils 0.04 Sodium 140 Potassium 3.8 Chloride 99 Carbon Dioxide 35.2 H Anion Gap 5.8 BUN 15 Creatinine 0.9 Estimated GFR/1.73 m2 >= 60.00 Glucose 157 H Calcium 8.8 Magnesium 2.0 Total Bilirubin 0.3 AST 16 ALT 16 Alkaline Phosphatase 102 Troponin I < 50 Total Protein 7.4 Albumin 3.7 COVID-19 Source Nasopharynx SARS-CoV-2 (PCR) Negative Influenza Type A (PCR) Negative Influenza Type B (PCR) Negative RSV (PCR) Negative Last Vital Signs Temp 36.6 C 08/29/21 19:09 Pulse 91 H 08/29/21 19:09 Resp 22 08/29/21 19:30 BP 163/86 H 08/29/21 19:09 Pulse Ox 89 L 08/29/21 19:09
[2021-08-29 23:14] LABS: Anion Gap 7.9 mmol/L (3-11); BUN 13 mg/dL (7-18); CO2 29.1 mmol/L (21.0-32.0); CREATININE 0.7 mg/dL (0.70-1.30); Chloride 101 mmol/L (98-107); Glucose 190 mg/dL (74-106); Potassium 4.4 mmol/L (3.5-5.1); Sodium 138 mmol/L (136-145)
[2021-08-29 23:33] LABS: NT-proBNP 492 pg/mL (<300)
[2021-08-30] VITALS (12 sets, daily range): BP systolic 105–153; BP diastolic 57–97; PULSE 72–109; RESP 4–25; TEMP 36.2–37.5; O2SAT 74–94
--- NOTE | 2021-08-30 02:42 | NUR.NOTE ---
informed of patient negative covid status. Advised to remove patient from PUI precautions
[2021-08-30 06:45] LABS: HCT 53.5 % (40.0-50.0); HGB 17.3 g/dL (13.5-17.5); MCH 28.8 pg (27.0-33.0); MCHC 32.3 % (32.0-36.0); MCV 89 fL (80-95); MPV 9.9 fL (8.0-11.0); RDW 14.2 % (11.8-14.1); RDW-SD 46.5 fL; WBC 5.85 10^3/uL (4.4-10.8)
[2021-08-30 07:11] LABS: Platelet Count 287 10^3/uL (130-400); RBC 6.01 10^6/uL (4.36-5.78)
[2021-08-30 07:19] LABS: Procalcitonin < 0.1 ng/mL
[2021-08-30] MEDS: Budesonide/Formoterol 80/4.5 6.9 GM 60 PUFF INH IH ×2 (08:23→19:17)
[2021-08-30] MEDS: Tiotropium Bromide-Respimat 10 PUFF INH 2 PUFF IH (08:23)
[2021-08-30] MEDS: Doxycycline Hyclate 100 MG CAP PO ×2 (08:39→19:16)
--- NOTE | 2021-08-30 12:21 | PDOC.CMIN ---
- If Service Date Differs Date of service: 08/30/21 Time of Service: 12:21 Care Management Initial Assess REASON FOR HOSPITALIZATION:: Pneumonia PAST MEDICAL HISTORY/PAST SURGICAL HISTORY:: Hyperlipidemia. Obesity (BMI 30-39.9). Palliative care patient. Schizophrenia PREVIOUS FUNCTIONAL STATUS/SOCIAL/FAMILY SUPPORTS:: Nathan presents with his [facility] worker, Marko King. Nathan is homeless, previously housed at [facility]. His OCCUPATIONAL THERAPY INSTRUCTOR CM Ann reports he has been staying in a tent at [facility] the last few days. Most of his health problems are psychiatric in nature, including his poor self care. He has an appointment with Hina Hadley NP at [facility] already scheduled, per health assessment and treatment teacher. CURRENT FUNCTIONAL STATUS:: Nathan is up independently. CM connected him with his OCCUPATIONAL THERAPY INSTRUCTOR CM Ann, who advised OCCUPATIONAL THERAPY INSTRUCTOR would be bringing his personal belongings to him. ADVANCE DIRECTIVES:: On file. Has patient been provided with info about the portal/API?: Yes Did the patient sign up for the portal?: No CODE STATUS:: Full Code INSURANCE COVERAGE / FINANCIAL ISSUES:: Medicare. Medicaid CURRENT HOME/COMMUNITY SERVICES/EQUIPMENT:: OCCUPATIONAL THERAPY INSTRUCTOR: Ann PRIMARY CARE PHYSICIAN:: Hina Hadley POTENTIAL DISCHARGE NEEDS:: Referral faxed to [facility]. PATIENT/FAMILY EDUCATION NEEDS:: Review of discharge instructions, limitations, self care need upon discharge. ANTICIPATED BARRIERS TO DISCHARGE:: Patient in need of Oxygen, per MD; without housing. TRANSPORTATION:: Dependent on disposition. PLAN:: Per report, [facility] working on housing. CM spoke with Ann, OCCUPATIONAL THERAPY INSTRUCTOR SHELL. CM advised referral faxed to [facility], awaiting determination. Patient reportedly requires supplemental oxygen which is noted as his admission reason as he is unable to utilize oxygen in his tent at this time.
[2021-08-30] MEDS: Normal Saline Flush 10 ML SYR IVP ×2 (15:44→21:55)
[2021-08-30] MEDS: Albuterol/Ipratropium 3 ML UPD VIAL UPD (15:50)
--- NOTE | 2021-08-30 15:50 | W.PM.PROGNOT ---
Date of Service Date of service: 08/30/21 Time of Service: 15:50 Assessment and Plan Assessment and plan (1) Acute exacerbation of chronic obstructive pulmonary disease: Status: Acute Assessment and plan: COPD exacerbation; pneumonia. He does not have access to his oxygen - currently living in a tent. - ceftriaxone and doxycycline - Symbicort 80-4.5 and Spiriva - albuterol prn - Duonebs prn - Exercise oximetry, down to 74%; continue oxygen - per PFT his COPD is quite advanced Reviewed with Dr Farmer (2) Pneumonia: Status: Acute Assessment and plan: treatment with ceftriacone and azithromycin as above (3) Homeless single person: Status: Acute Assessment and plan: will need assistance from case management/social work (4) Bipolar 1 disorder: Status: Acute Assessment and plan: - Continue home meds (5) Diabetes: Status: Chronic Assessment and plan: Continue home meds (6) HTN (hypertension): Status: Chronic Assessment and plan: Continue home meds (7) Obstructive sleep apnea: Status: Chronic Assessment and plan: patient not on CPAP at home (8) Respiratory failure with hypoxia: Status: Acute Assessment and plan: supplemental O2 for sats 88-92% discharge will be difficult with his current living situation and need for oxygen. He has refused oxygen in the past; he continues to smoke and that is causing some of his current housing issues as he has been told he can not return to several area motels due to smoking in the room. Subjective Subjective Patient reports: no new complaints, tolerating a regular diet, shortness of breath and afebrile; denies diarrhea, vomiting or fever Interval history since last seen: No new complaints, reports he can not leave the hospital as he is currently staying in a tent and can't have his oxygen there. Exam Narrative Exam Narrative: Gen: NAD, normal respiratory effort, obese HENT: PERRL, nasal mucosa pink Chest: No respiratory distress, normal appearance of chest, clear breath sounds bilaterally, no crackles or wheezes, normal inspiratory effort Heart: regular rate and rhythym, no murmurs, rubs or gallops Abdomen: Non-distended, soft, non tender Extremities: No clubbing, 1+ pedal edema, no cyanosis, no rashes Neuro: AAOx3 , non focal Psych: cooperative, appropriate mental affect Objective Last Vital Signs Temp 36.4 C L 06/16/22 11:48 Pulse 81 08/30/21 11:48 Resp 18 08/30/21 11:48 BP 153/97 H 08/30/21 11:48 Pulse Ox 94 08/30/21 11:48 Laboratory Results - last 24 hr 08/29/21 08/29/21 08/29/21 19:45 19:45 19:45 WBC 11.08 H RBC 5.98 H Hgb 17.0 Hct 53.1 H MCV 89 MCH 28.4 MCHC 32.0 RDW 14.1 Plt Count 315 MPV 9.5 Immature Gran % 0.3 Neutrophils % 71.7 Lymphocytes % 18.1 Monocytes % 8.6 Eosinophils % 0.9 Basophils % 0.4 Nucleated RBC % 0.0 Absolute Neutrophils 7.94 H Absolute Lymphocytes 2.01 Absolute Monocytes 0.95 H Absolute Eosinophils 0.10 Absolute Basophils 0.04 Sodium 140 Potassium 3.8 Chloride 99 Carbon Dioxide 35.2 H Anion Gap 5.8 BUN 15 Creatinine 0.9 Estimated GFR/1.73 m2 >= 60.00 Glucose 157 H Calcium 8.8 Magnesium 2.0 Total Bilirubin 0.3 AST 16 ALT 16 Alkaline Phosphatase 102 Troponin I < 50 NT-Pro-B Natriuret Pep Total Protein 7.4 Albumin 3.7 Procalcitonin COVID-19 Source Nasopharynx SARS-CoV-2 (PCR) Negative Influenza Type A (PCR) Negative Influenza Type B (PCR) Negative RSV (PCR) Negative 08/29/21 08/29/21 08/30/21 22:51 22:59 06:12 WBC RBC Hgb Hct MCV MCH MCHC RDW Plt Count MPV Immature Gran % Neutrophils % Lymphocytes % Monocytes % Eosinophils % Basophils % Nucleated RBC % Absolute Neutrophils Absolute Lymphocytes Absolute Monocytes Absolute Eosinophils Absolute Basophils Sodium 138 Potassium 4.4 Chloride 101 Carbon Dioxide 29.1 Anion Gap 7.9 BUN 13 Creatinine 0.7 Estimated GFR/1.73 m2 >= 60.00 Glucose 190 H Calcium 9.0 Magnesium Total Bilirubin AST ALT Alkaline Phosphatase Troponin I NT-Pro-B Natriuret Pep 492 H Total Protein Albumin Procalcitonin < 0.1 COVID-19 Source SARS-CoV-2 (PCR) Influenza Type A (PCR) Influenza Type B (PCR) RSV (PCR) 08/30/21 06:12 WBC 5.85 RBC 6.01 H Hgb 17.3 Hct 53.5 H MCV 89 MCH 28.8 MCHC 32.3 RDW 14.2 H Plt Count 287 MPV 9.9 Immature Gran % Neutrophils % Lymphocytes % Monocytes % Eosinophils % Basophils % Nucleated RBC % Absolute Neutrophils Absolute Lymphocytes Absolute Monocytes Absolute Eosinophils Absolute Basophils Sodium Potassium Chloride Carbon Dioxide Anion Gap BUN Creatinine Estimated GFR/1.73 m2 Glucose Calcium Magnesium Total Bilirubin AST ALT Alkaline Phosphatase Troponin I NT-Pro-B Natriuret Pep Total Protein Albumin Procalcitonin COVID-19 Source SARS-CoV-2 (PCR) Influenza Type A (PCR) Influenza Type B (PCR) RSV (PCR) Reviewed Pertinent PMH: Yes
[2021-08-30] MEDS: Enoxaparin 40 MG/0.4 ML SYR SC (19:16)
--- NOTE | 2021-08-30 21:45 | RT.EKG_ITS ---
APPROVED REPORT Exam: Resting ECG Reason for Exam: chest pain Patient Location: I HR:92 bpm ECG Measurements Heart Rate 92 AXIS WV 133 P 60 QRSd 142 QRS 29 QT 397 T -19 QTc 492 Conclusion Sinus rhythm...normal P axis, V-rate 50- 99 Right bundle branch block...QRSd>120, terminal axis(90,270)
[2021-08-30] MEDS: Insulin Aspart 300 UNITS/3 ML PEN SC (21:54)
[2021-08-30] MEDS: cefTRIAXone 1 GM/50 ML BAG IVPB (21:55)
[2021-08-30] MEDS: Pantoprazole 40 MG TABCR PO (22:30)
--- NOTE | 2021-08-30 22:30 | RT.EKG_ITS ---
APPROVED REPORT Exam: Resting ECG Reason for Exam: chest pain Patient Location: I HR:62 bpm ECG Measurements Heart Rate 62 AXIS AR 152 P 37 QRSd 143 QRS 0 QT 439 T -7 QTc 446 Conclusion Sinus rhythm...normal P axis, V-rate 50- 99 Right bundle branch block...QRSd>120, terminal axis(90,270)
[2021-08-30 22:52] LABS: Troponin I < 50 ng/L (<or=60)
[2021-08-31] VITALS (10 sets, daily range): BP systolic 116–143; BP diastolic 75–92; PULSE 62–73; RESP 18–20; TEMP 36.5–37.2; O2SAT 88–92
[2021-08-31 01:22] LABS: Troponin I < 50 ng/L (<or=60)
[2021-08-31 06:43] LABS: Abs Immature Grans 0.03 10^3/uL (0.0-0.06); Absolute Basophil Count 0.02 10^3/uL (0.0-0.2); Absolute Eosinophil Count 0.11 10^3/uL (0.0-0.7); Absolute Lymphocyte Count 2.16 10^3/uL (1.2-3.4); Absolute Monocyte Count 0.61 10^3/uL (0.1-0.8); Absolute Neutrophil Count 4.42 10^3/uL (1.2-6.7); Basophils % 0.3; Eosinophils % 1.5; HCT 47.8 % (40.0-50.0); HGB 15.1 g/dL (13.5-17.5); Immature Grans % 0.4; Lymphocytes % 29.4; MCH 28.4 pg (27.0-33.0); MCHC 31.6 % (32.0-36.0); MCV 90 fL (80-95); MPV 9.9 fL (8.0-11.0); Monocytes % 8.3; Neutrophils % 60.1; Platelet Count 264 10^3/uL (130-400); RBC 5.32 10^6/uL (4.36-5.78); RDW 14.3 % (11.8-14.1); RDW-SD 47.4 fL; WBC 7.35 10^3/uL (4.4-10.8)
[2021-08-31 07:10] LABS: Anion Gap 4.1 mmol/L (3-11); BUN 17 mg/dL (7-18); CO2 33.9 mmol/L (21.0-32.0); CREATININE 0.9 mg/dL (0.70-1.30); Calcium 8.5 mg/dL (8.5-10.1); Chloride 104 mmol/L (98-107); Glucose 137 mg/dL (74-106); Potassium 4.2 mmol/L (3.5-5.1); Sodium 142 mmol/L (136-145)
--- NOTE | 2021-08-31 07:33 | UCONE_ITS ---
Date of service: 08/31/21 Time of Service: 13:01 Assessment and Plan Assessment and plan (1) Incontinence of urine: Status: Acute Assessment and plan: Our usual starting recommendation for patients with incontinence is behavioral modification. The patient admits to a number of bladder stimulants such as coffee and tea, but he has not actively tried to avoid these irritants. Also, the patient has been prescribed oxybutynin. He was actually on the medication before he came to see us in January. On each encounter, he has admitted that he has not been compliant in taking the medication. Since oxybutynin will take 4 to 8 weeks to show its greatest effect, we need the patient to take the medication faithfully for at least that long to see if it has been helpful or not. Changing to a different medication would not make a difference if he is not going to take it either. There is nothing surgical that would help his condition. History of Present Illness History of Present Illness Chief Complaint: Urinary incontinence Narrative: This is a 61-year-old gentleman who is currently hospitalized with respiratory symptoms. I have been asked to see him for new onset urinary incontinence. In reviewing his records, this patient is actually established with us and has been seen in the office. There are two excellent office notes from January and February 2021. Our nurse practitioner actually reviewed over 800 pages of outside facility records. He had a follow-up appointment earlier this month that he no showed. The patient admits to using quite a few bladder stimulants such as coffee and tea. He has been prescribed oxybutynin but he has been rather noncompliant with its use. When I asked the patient whether or not he has been taking the medication, he tells me he really only started taking it regularly once he was admitted to the hospital. Prior to that time, he was not taking the medication at all. Review of Systems Constitutional Comments: He has no fever or chills He has no nausea or vomiting PFSH All Active Problems (Updated 08/29/21 @ 22:02 by Mindi Castro MD) Respiratory failure with hypoxia (Acute) Pneumonia (Acute) Acute exacerbation of chronic obstructive pulmonary disease (Acute) Supplemental oxygen dependent (Acute) Homeless single person (Acute) Bipolar 1 disorder (Acute) Obesity (Chronic) Incontinence of urine (Acute) Diabetes (Chronic) Discharge planning issues (Acute) DVT prophylaxis (Acute) HTN (hypertension) (Chronic) Obstructive sleep apnea (Chronic) COPD (chronic obstructive pulmonary disease) (Chronic) Suicidal ideations (Acute) Hallucinations (Acute) Hypertension (Chronic) Medical History (Updated 08/29/21 @ 22:02 by Mindi Castro MD) Hyperlipidemia Obesity (BMI 30-39.9) Palliative care patient Schizophrenia Family History Other Adopted Social History (Updated 12/05/20 @ 16:51 by Kathya Wang MD) Smoking/Tobacco Use Status: Current every day Tobacco Type: cigarettes Smoking risk assessment performed?: Yes Alcohol Intake: former Drug use: Never Substance use type: does not use Caregiver/Support person: No Household members: none Housing: homeless Number of Children: 0 Communication Needs: Hard of Hearing and Corrective Lenses Education Level: high school Do you need help understanding health information?: Always current occupation: disabled due to mental illness Pets and animals: No Current gender identity: male What is your relationship status?: never How often do you talk on the phone with friends or family?: never How often do you get together with friends or relatives?: never Panel score (0-1 are the most socially isolated patients): 0 What type of physical activity do you participate in: none and sedentary lifestyle Frequency: does not exercise Special mannie needs: No Seatbelt use: always Do you feel safe at home: No (hallucinating re dying) Do you feel safe in your relationship?: Yes Additional Social history: Nathan presents with his [facility] worker, Marko King. Nathan is homeless, currently housed at [facility]. He has been asked to leave, partly as his housing was paid for through [employer] grants that have come to an end, and partly due to his chronic urinary incontinence. He has ruined more than one mattress since living at the [facility]. He used to live in [place], [place] with his mother. He says I'm not allowed to speak to her. Marko and other [facility] staff are trying to find Nathan placement. He lived briefly at the [facility] before being transferred to the [facility]. Most of his health problems are psychiatric in nature, including his poor self care. We were able to get him an appointment with Hina Hadley NP at [facility] for the day after my visit with Nathan. Exam Narrative Exam Narrative: He is an obese man in no obvious distress. He is cooperative. His vital signs are documented elsewhere He is awake and alert Results Last Vital Signs Temp 37.2 C 08/31/21 07:17 Pulse 65 08/31/21 07:17 Resp 18 08/31/21 07:17 BP 136/92 H 08/31/21 07:17 Pulse Ox 90 L 08/31/21 07:17 Labs Result diagrams: 08/31/21 06:06 08/31/21 06:06 Labs: Laboratory Results - last 24 hr 08/30/21 08/31/21 08/31/21 22:20 01:01 06:06 WBC RBC Hgb Hct MCV MCH MCHC RDW Plt Count MPV Immature Gran % Neutrophils % Lymphocytes % Monocytes % Eosinophils % Basophils % Nucleated RBC % Absolute Neutrophils Absolute Lymphocytes Absolute Monocytes Absolute Eosinophils Absolute Basophils Sodium 142 Potassium 4.2 Chloride 104 Carbon Dioxide 33.9 H Anion Gap 4.1 BUN 17 Creatinine 0.9 Estimated GFR/1.73 m2 >= 60.00 Glucose 137 H Calcium 8.5 Troponin I < 50 < 50 08/31/21 06:06 WBC 7.35 RBC 5.32 Hgb 15.1 D Hct 47.8 MCV 90 MCH 28.4 MCHC 31.6 L D RDW 14.3 H Plt Count 264 MPV 9.9 Immature Gran % 0.4 Neutrophils % 60.1 Lymphocytes % 29.4 Monocytes % 8.3 Eosinophils % 1.5 Basophils % 0.3 Nucleated RBC % 0.0 Absolute Neutrophils 4.42 Absolute Lymphocytes 2.16 Absolute Monocytes 0.61 Absolute Eosinophils 0.11 Absolute Basophils 0.02 Sodium Potassium Chloride Carbon Dioxide Anion Gap BUN Creatinine Estimated GFR/1.73 m2 Glucose Calcium Troponin I
[2021-08-31] MEDS: Budesonide/Formoterol 80/4.5 6.9 GM 60 PUFF INH IH ×2 (08:00→21:01)
[2021-08-31] MEDS: Tiotropium Bromide-Respimat 10 PUFF INH 2 PUFF IH (08:00)
[2021-08-31] MEDS: Doxycycline Hyclate 100 MG CAP PO ×2 (08:43→21:00)
[2021-08-31] MEDS: Pantoprazole 40 MG TABCR PO (08:43)
[2021-08-31] MEDS: ARIPiprazole 5 MG TAB PO (08:43)
[2021-08-31] MEDS: Oxybutynin-CR 5 MG TABCR 20 MG PO (08:44)
[2021-08-31] MEDS: Lisinopril 10 MG TAB 30 MG PO (08:44)
[2021-08-31] MEDS: Cholecalciferol (Vitamin D3) 1,000 UNIT TAB 1000 UNITS PO (08:44)
--- NOTE | 2021-08-31 11:52 | RESPIRATORY ---
Pt states that [facility] currently provides his home oxygen. Case Management arranging new housing for pt. Joe states they are unable to provide future services to pt without a credit card on file, as pt has repeatedly abandoned equipment.
--- NOTE | 2021-08-31 15:28 | W.PM.PROGNOT ---
Date of Service Date of service: 08/31/21 Time of Service: 15:29 Assessment and Plan Assessment and plan (1) Acute exacerbation of chronic obstructive pulmonary disease: Status: Acute Assessment and plan: COPD exacerbation; pneumonia. He does not have access to his oxygen - currently living in a tent. - ceftriaxone and doxycycline - Symbicort 80-4.5 and Spiriva - albuterol prn - Duonebs prn - Exercise oximetry (2) Pneumonia: Status: Acute Assessment and plan: treatment with ceftriaxone and doxycycline as above (3) Homeless single person: Status: Acute Assessment and plan: will need assistance from case management/social work (4) Bipolar 1 disorder: Status: Acute Assessment and plan: - Continue home meds (5) Diabetes: Status: Chronic Assessment and plan: Continue home meds (6) HTN (hypertension): Status: Chronic Assessment and plan: Continue home meds (7) Obstructive sleep apnea: Status: Chronic Assessment and plan: patient not on CPAP at home (8) Respiratory failure with hypoxia: Status: Acute Assessment and plan: supplemental O2 for sats 88-92% discharge will be difficult with his current living situation and need for oxygen. He has refused oxygen in the past; he continues to smoke and that is causing some of his current housing issues as he has been told he can not return to several area motels due to smoking in the room. Reviewed with Dr Farmer Subjective Subjective Patient reports: no new complaints, feels better, tolerating liquids well, tolerating a regular diet and afebrile; denies shortness of breath Exam Const General: comfortable, no acute distress, disheveled and ill appearing chronically Nutritional Appearance: obese Orientation: alert, awake and oriented x3 HENUT Head: normal to inspection, normocephalic and atraumatic Mouth: oral mucosae normal Neck Neck: normal visual inspection and full ROM Chest Chest: normal inspection of the chest Cardio Rate: regular rate Rhythm: regular rhythm GI Inspection: normal to inspection Palpation: soft Auscultation: normal bowel sounds Skin General skin exam: no rashes or lesions noted Neuro General: patient alert, patient awake, patient oriented x3 and no focal motor deficits Extrem General: normal to inspection and full ROM Objective Last Vital Signs Temp 37.2 C 08/31/21 07:17 Pulse 62 08/31/21 10:35 Resp 18 08/31/21 07:17 BP 136/92 H 08/31/21 07:17 Pulse Ox 90 L 08/31/21 07:17 Laboratory Results - last 24 hr 08/30/21 08/30/21 08/31/21 06:12 22:20 01:01 WBC RBC Hgb Hct MCV MCH MCHC RDW Plt Count MPV Immature Gran % Neutrophils % Lymphocytes % Monocytes % Eosinophils % Basophils % Nucleated RBC % Absolute Neutrophils Absolute Lymphocytes Absolute Monocytes Absolute Eosinophils Absolute Basophils Sodium Potassium Chloride Carbon Dioxide Anion Gap BUN Creatinine Estimated GFR/1.73 m2 Glucose Calcium Troponin I < 50 < 50 Path Cons Comment 08/31/21 08/31/21 06:06 06:06 WBC 7.35 RBC 5.32 Hgb 15.1 D Hct 47.8 MCV 90 MCH 28.4 MCHC 31.6 L D RDW 14.3 H Plt Count 264 MPV 9.9 Immature Gran % 0.4 Neutrophils % 60.1 Lymphocytes % 29.4 Monocytes % 8.3 Eosinophils % 1.5 Basophils % 0.3 Nucleated RBC % 0.0 Absolute Neutrophils 4.42 Absolute Lymphocytes 2.16 Absolute Monocytes 0.61 Absolute Eosinophils 0.11 Absolute Basophils 0.02 Sodium 142 Potassium 4.2 Chloride 104 Carbon Dioxide 33.9 H Anion Gap 4.1 BUN 17 Creatinine 0.9 Estimated GFR/1.73 m2 >= 60.00 Glucose 137 H Calcium 8.5 Troponin I Path Cons Comment
--- NOTE | 2021-08-31 16:21 | CMPROGNOTE_ITS ---
- If Service Date Differs Date of service: 08/31/21 Time of Service: 16:21 Care Management Progress Note RT reports inability to coordinate oxygen for discharge, Nathan is requiring 2L at this time. Therefore, anticipate Nathan will have extended observation stay at [facility] over the weekend with goal of discharging to [place] on Friday.
[2021-08-31] MEDS: Enoxaparin 40 MG/0.4 ML SYR SC (21:00)
[2021-08-31] MEDS: cefTRIAXone 1 GM/50 ML BAG IVPB (21:18)
[2021-08-31] MEDS: Insulin Aspart 300 UNITS/3 ML PEN SC (21:18)
[2021-08-31] MEDS: Normal Saline Flush 10 ML SYR IVP (22:18)
[2021-09-01] VITALS (13 sets, daily range): BP systolic 127–176; BP diastolic 81–105; PULSE 61–69; RESP 7–20; TEMP 36–37; O2SAT 83–92
[2021-09-01] MEDS: Pantoprazole 40 MG TABCR PO (07:31)
[2021-09-01] MEDS: Normal Saline Flush 10 ML SYR IVP ×3 (07:31→21:46)
[2021-09-01] MEDS: Budesonide/Formoterol 80/4.5 6.9 GM 60 PUFF INH IH ×2 (07:50→19:45)
[2021-09-01] MEDS: Tiotropium Bromide-Respimat 10 PUFF INH 2 PUFF IH (07:51)
[2021-09-01] MEDS: Lisinopril 10 MG TAB 30 MG PO (08:27)
[2021-09-01] MEDS: Doxycycline Hyclate 100 MG CAP PO ×2 (08:28→19:42)
[2021-09-01] MEDS: ARIPiprazole 5 MG TAB PO (08:28)
[2021-09-01] MEDS: Cholecalciferol (Vitamin D3) 1,000 UNIT TAB 1000 UNITS PO (08:28)
[2021-09-01] MEDS: Oxybutynin-CR 5 MG TABCR 20 MG PO (08:28)
[2021-09-01] MEDS: Acetaminophen 325 MG TAB 650 MG PO ×3 (11:51→19:42)
[2021-09-01] MEDS: Ketorolac 15 MG/ML VIAL IM (11:52)
--- NOTE | 2021-09-01 12:42 | W.PM.PROGNOT ---
Date of Service Date of service: 09/01/21 Time of Service: 12:45 Assessment and Plan Assessment and plan (1) Acute exacerbation of chronic obstructive pulmonary disease: Status: Acute Assessment and plan: COPD exacerbation; pneumonia. He does not have access to his oxygen - currently living in a tent. - ceftriaxone and doxycycline - Symbicort 80-4.5 and Spiriva - albuterol prn - Duonebs prn - Exercise oximetry respiratory therapy working on obtaining oxygen (2) Tobacco dependence: Status: Acute Assessment and plan: smoking cessation discussed not interested in nicotine patch while hospitalized will try nicotrol inhaler if needed for symptoms (3) Pneumonia: Status: Acute Assessment and plan: treatment with ceftriaxone and doxycycline as above (4) Homeless single person: Status: Acute Assessment and plan: will need assistance from case management/social work ? care bed discharge on friday (5) Bipolar 1 disorder: Status: Acute Assessment and plan: - Continue home meds (6) Diabetes: Status: Chronic Assessment and plan: Continue home meds (7) HTN (hypertension): Status: Chronic Assessment and plan: Continue home meds some high readings, will not adjust meds at this time. (8) Obstructive sleep apnea: Status: Chronic Assessment and plan: patient not on CPAP at home (9) Respiratory failure with hypoxia: Status: Acute Assessment and plan: supplemental O2 for sats 88-92% discharge will be difficult with his current living situation and need for oxygen. He has refused oxygen in the past; he continues to smoke and that is causing some of his current housing issues as he has been told he can not return to several area motels due to smoking in the room. Reviewed with Dr Sampson Subjective Subjective Patient reports: tolerating liquids well, tolerating a regular diet, voiding w/o difficulty and afebrile; denies shortness of breath Interval history since last seen: pleuritic chest pain Exam Const General: comfortable, no acute distress, disheveled and ill appearing chronically Nutritional Appearance: obese Orientation: alert, awake and oriented x3 HENMT Head: normal to inspection, normocephalic and atraumatic Mouth: oral mucosae normal Neck Neck: normal visual inspection and full ROM Chest Chest: normal inspection of the chest Cardio Rate: regular rate Rhythm: regular rhythm GI Inspection: normal to inspection Palpation: soft Auscultation: normal bowel sounds Skin General skin exam: no rashes or lesions noted Neuro General: patient alert, patient awake, patient oriented x3 and no focal motor deficits Extrem General: normal to inspection and full ROM Objective Last Vital Signs Temp 36 C L 09/01/21 11:11 Pulse 63 09/01/21 11:11 Resp 18 09/01/21 11:11 BP 162/94 H 09/01/21 11:11 Pulse Ox 88 L 09/01/21 11:11
[2021-09-01] MEDS: Enoxaparin 40 MG/0.4 ML SYR SC (19:42)
[2021-09-01] MEDS: cefTRIAXone 1 GM/50 ML BAG IVPB (21:46)
[2021-09-01] MEDS: Albuterol/Ipratropium 3 ML UPD VIAL UPD (21:48)
--- NOTE | 2021-09-01 22:23 | NUR.NOTE ---
Adelfo offered PRN Nicotine. Pt stated he has only used his last inhalation cartridge 1x and doesnt feel the need for it at this time. This writer editor siggested to pt that his elevated b/p may be related to his bodies cravings for nicotine. Pt still denied wanting any additional need of PRN nicotine dose. Will continue to monitor VS closely.
--- NOTE | 2021-09-01 23:41 | NUR.NOTE ---
23:00: Handoff given to Silvia MARTINEZ. POC discussed and reviewed. Patient is currently awake watching TV in bed, [address] at 2LPM via nasal cannula. Call light is within reach and patient makes needs well known..
[2021-09-02 07:01] LABS: Platelet Count 284 10^3/uL (130-400)
[2021-09-02 07:07] VITALS: BP 130/82; PULSE 67; RESP 20; TEMP 36.7; O2SAT 91
[2021-09-02] MEDS: Tiotropium Bromide-Respimat 10 PUFF INH 2 PUFF IH (07:25)
[2021-09-02] MEDS: Budesonide/Formoterol 80/4.5 6.9 GM 60 PUFF INH IH ×2 (07:26→19:51)
[2021-09-02] MEDS: Insulin Aspart 300 UNITS/3 ML PEN SC (07:50)
[2021-09-02] MEDS: Lisinopril 10 MG TAB 30 MG PO (07:51)
[2021-09-02] MEDS: Pantoprazole 40 MG TABCR PO (07:52)
[2021-09-02] MEDS: ARIPiprazole 5 MG TAB PO (07:52)
[2021-09-02] MEDS: Doxycycline Hyclate 100 MG CAP PO ×2 (07:52→19:51)
[2021-09-02] MEDS: Cholecalciferol (Vitamin D3) 1,000 UNIT TAB 1000 UNITS PO (07:52)
[2021-09-02] MEDS: Oxybutynin-CR 5 MG TABCR 20 MG PO (07:52)
[2021-09-02] MEDS: Acetaminophen 325 MG TAB 650 MG PO ×4 (07:52→19:51)
--- NOTE | 2021-09-02 09:58 | W.PM.PROGNOT ---
Date of Service Date of service: 09/02/21 Time of Service: 09:58 Assessment and Plan Assessment and plan (1) Acute exacerbation of chronic obstructive pulmonary disease: Status: Acute Assessment and plan: COPD exacerbation; pneumonia. He does not have access to his oxygen - currently living in a tent. - ceftriaxone and doxycycline for 5 days - Symbicort 80-4.5 and Spiriva - albuterol prn - Duonebs prn - Exercise oximetry respiratory therapy working on obtaining oxygen (2) Tobacco dependence: Status: Acute Assessment and plan: smoking cessation discussed not interested in nicotine patch while hospitalized will try nicotrol inhaler if needed for symptoms (3) Pneumonia: Status: Acute Assessment and plan: treatment with ceftriaxone and doxycycline as above (4) Homeless single person: Status: Acute Assessment and plan: will need assistance from case management/social work ? care bed discharge on friday (5) Bipolar 1 disorder: Status: Acute Assessment and plan: - Continue home meds (6) Diabetes: Status: Chronic Assessment and plan: Continue home meds (7) HTN (hypertension): Status: Chronic Assessment and plan: Continue home meds some high readings, will not adjust meds at this time. (8) Obstructive sleep apnea: Status: Chronic Assessment and plan: patient not on CPAP at home (9) Respiratory failure with hypoxia: Status: Acute Assessment and plan: supplemental O2 for sats 88-92% discharge will be difficult with his current living situation and need for oxygen. He has refused oxygen in the past; he continues to smoke and that is causing some of his current housing issues as he has been told he can not return to several area motels due to smoking in the room. Reviewed with Dr Sampson Subjective Subjective Patient reports: no new complaints, feels better, tolerating liquids well, tolerating a regular diet, voiding w/o difficulty and afebrile; denies shortness of breath Exam Const General: comfortable, no acute distress, disheveled and ill appearing chronically Nutritional Appearance: obese Orientation: alert, awake and oriented x3 HENMT Head: normal to inspection, normocephalic and atraumatic Mouth: oral mucosae normal Neck Neck: normal visual inspection and full ROM Chest Chest: normal inspection of the chest Cardio Rate: regular rate Rhythm: regular rhythm GI Inspection: normal to inspection Palpation: soft Auscultation: normal bowel sounds Skin General skin exam: no rashes or lesions noted Neuro General: patient alert, patient awake, patient oriented x3 and no focal motor deficits Extrem General: normal to inspection and full ROM Objective Last Vital Signs Temp 36.7 C 09/02/21 07:07 Pulse 67 09/02/21 07:07 Resp 20 09/02/21 07:07 BP 130/82 09/02/21 07:07 Pulse Ox 91 L 09/02/21 07:07 Laboratory Results - last 24 hr 09/02/21 06:25 Plt Count 284
[2021-09-02 11:46] VITALS: BP 134/85; PULSE 65; RESP 20; TEMP 36.7; O2SAT 92
[2021-09-02 15:32] VITALS: BP 156/98; PULSE 61; RESP 20; TEMP 36.3; O2SAT 93
[2021-09-02] MEDS: Enoxaparin 40 MG/0.4 ML SYR SC (19:51)
[2021-09-02 21:02] VITALS: BP 153/99; PULSE 58; RESP 20; TEMP 36.4; O2SAT 93
[2021-09-02] MEDS: cefTRIAXone 1 GM/50 ML BAG IVPB (21:17)
[2021-09-02 22:39] VITALS: BP 145/74; PULSE 60; RESP 20; TEMP 36.7; O2SAT 92
[2021-09-03] VITALS (7 sets, daily range): BP systolic 148–159; BP diastolic 78–92; PULSE 56–108; RESP 14–22; TEMP 36.2–36.7; O2SAT 86–95
[2021-09-03] MEDS: Tiotropium Bromide-Respimat 10 PUFF INH 2 PUFF IH (07:47)
[2021-09-03] MEDS: Budesonide/Formoterol 80/4.5 6.9 GM 60 PUFF INH IH ×2 (07:47→20:27)
[2021-09-03] MEDS: Doxycycline Hyclate 100 MG CAP PO (08:14)
[2021-09-03] MEDS: ARIPiprazole 5 MG TAB PO (08:14)
[2021-09-03] MEDS: Acetaminophen 325 MG TAB 650 MG PO ×4 (08:15→20:27)
[2021-09-03] MEDS: Oxybutynin-CR 5 MG TABCR 20 MG PO (08:16)
[2021-09-03] MEDS: Cholecalciferol (Vitamin D3) 1,000 UNIT TAB 1000 UNITS PO (08:16)
[2021-09-03] MEDS: Lisinopril 10 MG TAB 30 MG PO (08:17)
[2021-09-03] MEDS: Pantoprazole 40 MG TABCR PO (08:17)
[2021-09-03] MEDS: Normal Saline Flush 10 ML SYR IVP (08:18)
--- NOTE | 2021-09-03 15:13 | W.PM.PROGNOT ---
Date of Service Date of service: 09/03/21 Time of Service: 15:00 Assessment and Plan Assessment and plan (1) Acute exacerbation of chronic obstructive pulmonary disease: Status: Acute Assessment and plan: COPD exacerbation; pneumonia. He does not have access to his oxygen - currently living in a tent. - ceftriaxone and doxycycline for 5 days - Symbicort 80-4.5 and Spiriva - albuterol prn - Duonebs prn - Exercise oximetry respiratory therapy continues to be working on obtaining oxygen (2) Tobacco dependence: Status: Acute Assessment and plan: smoking cessation discussed not interested in nicotine patch while hospitalized will try nicotrol inhaler if needed for symptoms (3) Pneumonia: Status: Acute Assessment and plan: treatment with ceftriaxone and doxycycline as above (4) Homeless single person: Status: Acute Assessment and plan: will need assistance from case management/social work ? care bed discharge - still considering (5) Bipolar 1 disorder: Status: Acute Assessment and plan: - Continue home meds (6) Diabetes: Status: Chronic Assessment and plan: Continue home meds (7) HTN (hypertension): Status: Chronic Assessment and plan: Continue home meds continues to have some high readings, will not adjust meds at this time. (8) Obstructive sleep apnea: Status: Chronic Assessment and plan: patient does not use CPAP at home, although it is recommended. (9) Respiratory failure with hypoxia: Status: Acute Assessment and plan: supplemental O2 for sats 88-92% discharge will be difficult with his current living situation and need for oxygen. He has refused oxygen in the past; he continues to smoke and that is causing some of his current housing issues as he has been told he can not return to several area motels due to smoking in the room. Reviewed with Dr Sampson Subjective Subjective Patient reports: no new complaints Exam Const General: comfortable, no acute distress, disheveled and ill appearing chronically Nutritional Appearance: obese Orientation: alert, awake and oriented x3 HENMT Head: normal to inspection, normocephalic and atraumatic Mouth: oral mucosae normal Neck Neck: normal visual inspection and full ROM Chest Chest: normal inspection of the chest Cardio Rate: regular rate Rhythm: regular rhythm GI Inspection: normal to inspection Palpation: soft Auscultation: normal bowel sounds Skin General skin exam: no rashes or lesions noted Neuro General: patient alert, patient awake, patient oriented x3 and no focal motor deficits Extrem General: normal to inspection and full ROM Objective Last Vital Signs Temp 36.2 C L 09/03/21 08:56 Pulse 78 09/03/21 08:56 Resp 18 09/03/21 08:56 BP 159/80 H 09/03/21 08:56 Pulse Ox 91 L 09/03/21 08:56 Reviewed Pertinent PMH: Yes
--- NOTE | 2021-09-03 16:30 | CMPROGNOTE_ITS ---
- If Service Date Differs Date of service: 09/03/21 Time of Service: 16:31 Care Management Progress Note Nathan will enter Swing Bed 2 due to inability to coordinate O2 due to lack of housing. CM faxed referral to [facility] upon admission. CM has not received call back from [facility], though SECONDARY SPECIAL EDUCATION TEACHER Zuri reports speaking with [facility] and stated Nathan is accepted pending bed availability. RT Anuja reports receiving the same information. [facility] reported they were working on Care Bed placement until [facility] is able to offer a bed; awaiting updates. In the interim, Nathan will discharge to SWB2 status.
--- NOTE | 2021-09-03 16:30 | PDOC.CMPRO ---
- If Service Date Differs Date of service: 09/03/21 Time of Service: 16:31 Care Management Progress Note Nathan will enter Swing Bed 2 due to inability to coordinate O2 due to lack of housing. CM faxed referral to [facility] upon admission. CM has not received call back from [facility], though FOOD TECHNICIAN Zuri reports speaking with [facility] and stated Nathan is accepted pending bed availability. RT Anuja reports receiving the same information. [facility] reported they were working on Care Bed placement until [facility] is able to offer a bed; awaiting updates. In the interim, Nathan will discharge to SWB2 status.
[2021-09-03] MEDS: Enoxaparin 40 MG/0.4 ML SYR SC (20:27)
--- NOTE | 2021-09-04 01:45 | NUR.NOTE ---
Nursing Note: I did a total bed change 2 times within 6 hours due to incontinence. I had asked pt several times to go to the bathroom he said No did not need to . At 0148 I went into room and he stripped the sheets off his bed but continued to lay in urine soaked Blue scrubs. Still insisting he was fine. I took him into the bathroom and made him change and wash up. Also I asked him to try using a Depend pull up. he agreed.
[2021-09-04] MEDS: ARIPiprazole 5 MG TAB PO (07:40)
[2021-09-04] MEDS: Acetaminophen 325 MG TAB 650 MG PO ×2 (07:41→11:12)
[2021-09-04] MEDS: Oxybutynin-CR 5 MG TABCR 20 MG PO (07:41)
[2021-09-04] MEDS: Pantoprazole 40 MG TABCR PO (07:41)
[2021-09-04] MEDS: Lisinopril 10 MG TAB 30 MG PO (07:41)
[2021-09-04] MEDS: Cholecalciferol (Vitamin D3) 1,000 UNIT TAB 1000 UNITS PO (07:41)
[2021-09-04] MEDS: Normal Saline Flush 10 ML SYR IVP (07:42)
[2021-09-04 07:48] VITALS: BP 160/97; PULSE 80; RESP 17; TEMP 36.8; O2SAT 91
[2021-09-04] MEDS: Tiotropium Bromide-Respimat 10 PUFF INH 2 PUFF IH (07:58)
[2021-09-04] MEDS: Budesonide/Formoterol 80/4.5 6.9 GM 60 PUFF INH IH (07:59)
--- NOTE | 2021-09-04 08:51 | W.PM.DS.N ---
Date of service: 09/04/21 Time of Service: 08:51 DS: Diagnosis Discharge Diagnosis (1) Acute exacerbation of chronic obstructive pulmonary disease: Status: Acute (2) Tobacco dependence: Status: Acute (3) Pneumonia: Status: Acute (4) Homeless single person: Status: Acute (5) Bipolar 1 disorder: Status: Acute (6) Diabetes: Status: Chronic (7) HTN (hypertension): Status: Chronic (8) Obstructive sleep apnea: Status: Chronic (9) Respiratory failure with hypoxia: Status: Acute Discharge Plan Disposition Patient Disposition: [facility] SWING BED LEVEL 2 Condition: Stable Discharge Details Reason For Visit: Pneumonia Admit Date/Time: 08/29/21 21:25 Admit Provider: Barrington De La O Attending Provider: Barrington De La O Primary Care Provider: Hina Hadley Hospital Course Hospital Course: This is a 61 yo man with a significant psych history (last admission here at end of July was psych related) and severe oxygen dependant COPD (with non-compliance with O2 and continue to smoke tobacco) not on any inhaler therapy (per MAY) and who has JEREMIAS but does not wear CPAP who is being admitted for a COPD exacerbation and concern for a pneumonia. He does not have clear admission criteria, however he was kicked [place]' of the [place] and left without his oxygen and reportedly has no way of obtaining them currently. His CXR is read as multilobar pneumonia, however it was not believed to be so by rn patient services, He was admitted his to observation and treatment him for an exacerbation of COPD and for a potential pneumonia. He was treated with ceftriaxone and doxycycline completing a 5 day course. He has remained at his baseline. He was non compliant with oxygen, only wearing briefly when reminded. He unfortunately could not be safely discharged as we were unable to obtain oxygen (homeless, needs credit card on file as he has abandoned equipment multiple time, non compliant). Case management has been following and has been working on discharge planning. referrals are pending. He will need to stay here under swing bed level 2 while seeking a discharge. discussed with DR Sampson Home Meds and New Rx's Prescriptions: No Action lisinopril 30 mg tablet 30 mg PO DAILY metformin 750 mg tablet extended release 24 hr 750 mg PO DAILY Viibryd 40 mg tablet 40 mg PO DAILY Rx Instructions: must administer with a meal/food aripiprazole [Abilify] 5 mg tablet 5 mg PO DAILY oxybutynin chloride 10 mg tablet extended release 24hr 20 mg PO DAILY Qty: 60 6RF Rx Instructions: Take 2 tabs of the 10mg extended release daily cholecalciferol (vitamin D3) 25 mcg (1,000 unit) tablet 25 mcg PO DAILY Label Comments: 1 daily hydrocortisone 1 % Cream 1 applic topical BID ziprasidone HCl 40 mg capsule 40 mg PO QHS Discharge Instructions Instructions: Using Oxygen at Home (DC), COPD (Chronic Obstructive Pulmonary Disease) (DC) Activity:: Activity as Tolerated Equipment/Supplies:: Oxygen (L/min Below) Diet:: Carb Counting Discharge Orders Discharge Orders: Discharge Order (Routine); Ordered 09/04/21 Ordered By: Rosaline Justice DS: Summary Time Spent with Patient providing and/or coordinating discharge services: Greater than 30 minutes Status at Discharge Functional status at discharge: independent ambulation Overall status at discharge: patient is back to baseline Mental Status: mental status grossly normal Speech and Movement: speech and movement normal Mood: congruent mood Affect: normal affect Exam Const General: comfortable, no acute distress, disheveled and ill appearing chronically Nutritional Appearance: obese Orientation: alert, awake and oriented x3 HENMT Head: normal to inspection, normocephalic and atraumatic Mouth: oral mucosae normal Neck Neck: normal visual inspection and full ROM Chest Chest: normal inspection of the chest Resp Effort & Inspection: normal respiratory effort Auscultation: diminished lung sounds (throughout, no coarse breath sounds) Cardio Rate: regular rate Rhythm: regular rhythm GI Inspection: normal to inspection Palpation: soft Auscultation: normal bowel sounds Skin General skin exam: no rashes or lesions noted Neuro General: patient alert, patient awake, patient oriented x3 and no focal motor deficits Extrem General: normal to inspection and full ROM Psych Mental Status: mental status grossly normal Speech and Movement: speech and movement normal Mood: congruent mood Affect: normal affect DS: Data Vitals/I&O Vitals and I&O: Vital Signs Temperature 36.6 C 09/03/21 23:13 Temperature Source Tympanic 09/03/21 23:13 Pulse 56 L 09/03/21 23:13 Pulse Rhythm Regular 09/04/21 07:46 Pulse 69 08/29/21 21:10 Respiratory Rate 20 09/03/21 23:13 Respiratory Effort 09/04/21 07:46 Respiratory Depth Normal 09/04/21 07:46 Respiratory Pattern Normal 09/04/21 07:46 Blood Pressure 148/78 H 09/03/21 23:13 Blood Pressure Mean 110 08/29/21 23:37 Blood Pressure Position Sitting 08/29/21 19:09 Pulse Oximetry 93 09/03/21 23:13 Oxygen Delivery Method Nasal Cannula 09/03/21 23:13 Oxygen Flow Rate 2 09/03/21 23:13 Pain Level 4 09/04/21 07:41 Comment 09/03/21 03:40 Intake & Output 09/03/21 09/03/21 09/04/21 11:59 23:59 11:59 Intake Total 560 / 800 240 / 800 Balance 560 / 800 240 / 800 Intake: IV Oral 550 / 790 240 / 790 Other: Urine Color Pale Yellow Urine Appearance Clear Clear Clear Comment bed and floor soaked in urine bed and floor soaked with urine Voiding Methods Diaper Toilet Incontinent PFSH All Active Problems (Updated 09/01/21 @ 15:29 by Rosaline Justice NP) Tobacco dependence (Acute) Respiratory failure with hypoxia (Acute) Pneumonia (Acute) Acute exacerbation of chronic obstructive pulmonary disease (Acute) Supplemental oxygen dependent (Acute) Homeless single person (Acute) Bipolar 1 disorder (Acute) Obesity (Chronic) Incontinence of urine (Acute) Diabetes (Chronic) Discharge planning issues (Acute) DVT prophylaxis (Acute) HTN (hypertension) (Chronic) Obstructive sleep apnea (Chronic) COPD (chronic obstructive pulmonary disease) (Chronic) Suicidal ideations (Acute) Hallucinations (Acute) Hypertension (Chronic) Medical History (Updated 09/01/21 @ 15:29 by Rosaline Justice NP) Hyperlipidemia Obesity (BMI 30-39.9) Palliative care patient Schizophrenia Family History Other Adopted Social History (Updated 12/05/20 @ 16:51 by Kathya Wang MD) Smoking/Tobacco Use Status: Current every day Tobacco Type: cigarettes Smoking risk assessment performed?: Yes Alcohol Intake: former Drug use: Never Substance use type: does not use Caregiver/Support person: No Household members: none Housing: homeless Number of Children: 0 Communication Needs: Hard of Hearing and Corrective Lenses Education Level: high school Do you need help understanding health information?: Always current occupation: disabled due to mental illness Pets and animals: No Current gender identity: male What is your relationship status?: never How often do you talk on the phone with friends or family?: never How often do you get together with friends or relatives?: never Panel score (0-1 are the most socially isolated patients): 0 What type of physical activity do you participate in: none and sedentary lifestyle Frequency: does not exercise Special mannie needs: No Seatbelt use: always Do you feel safe at home: No (hallucinating re dying) Do you feel safe in your relationship?: Yes Additional Social history: Nathan presents with his [facility] worker, Marko King. Nathan is homeless, currently housed at [facility]. He has been asked to leave, partly as his housing was paid for through [employer] grants that have come to an end, and partly due to his chronic urinary incontinence. He has ruined more than one mattress since living at the [facility]. He used to live in [place], [place] with his mother. He says I'm not allowed to speak to her. Marko and other [facility] staff are trying to find Nathan placement. He lived briefly at the [facility] before being transferred to the [facility]. Most of his health problems are psychiatric in nature, including his poor self care. We were able to get him an appointment with Hina Hadley NP at [facility] for the day after my visit with Nathan.
[2021-09-04 11:05] VITALS: BP 168/102; PULSE 64; RESP 18; TEMP 36; O2SAT 90
[2021-09-04] MEDS: Insulin Aspart 300 UNITS/3 ML PEN SC (11:09)
[2021-09-04 13:12] LABS: Bilirubin Negative (Negative); Blood Negative (Negative); Clarity Clear (Clear); Glucose Negative (Negative); Ketones Negative (Negative); Leukocyte Esterase Negative (Negative); Nitrite Negative (Negative); Urobilinogen 0.2 EU/dL (Up TO 0.2)
== END 2021-09-04 14:04 | disposition swing bed (61) ==
LOC: ER 08-30 00:29 → MS 08-30 00:32
PROVIDERS: Internal Medicine; Nurse Practitioner Acute Care; Nurse Practitioner Family; Student in an Organized Health Care Education/Training Program; Admitting Provider Family Medicine; Emergency Provider Physician Assistant; PCP Nurse Practitioner; Visit Provider Family Medicine
DX: J18.9 Pneumonia, unspecified organism (principal); J96.01 Acute respiratory failure with hypoxia; J44.1 Chronic obstructive pulmonary disease with (acute) exacerbation; F20.9 Schizophrenia, unspecified; J44.0 Chronic obstructive pulmonary disease with (acute) lower respiratory infection; I45.10 Unspecified right bundle-branch block; Z20.822 Contact with and (suspected) exposure to COVID-19; Z59.02 Unsheltered homelessness; Z99.81 Dependence on supplemental oxygen; E11.9 Type 2 diabetes mellitus without complications; E78.5 Hyperlipidemia, unspecified; I10 Essential (primary) hypertension; F31.9 Bipolar disorder, unspecified; R32 Unspecified urinary incontinence; G47.33 Obstructive sleep apnea (adult) (pediatric); E66.9 Obesity, unspecified; Z68.30 Body mass index [BMI] 30.0-30.9, adult; F17.210 Nicotine dependence, cigarettes, uncomplicated; Z79.84 Long term (current) use of oral hypoglycemic drugs; Z91.14 Patient's other noncompliance with medication regimen
CPT/HCPCS: 36415; 80048; 80053; 84145; 85027; 87040; 87637; 93005; 94618; 94640; 96365; 96368; 96372; 96374; 96375; 99213; 99285; J1650; 71045; 81003; 83735; 83880; 84484; 85025; 85049; 93010; 94760; 99217; 99220; 99225; 99226; G0378; J0696; J1885; J2930; J7620

== ENCOUNTER 2021-09-04 09:05 | Inpatient (IN) | payer MEDICARE, MEDICAID, SELFPAY ==
--- NOTE | 2021-09-04 07:55 | CM.SWINGPC ---
- If Service Date Differs Date of service: 09/04/21 Time of Service: 07:55 Swingbed Plan of Care Plan of care: SWING BED PROGRAM ACTIVITIES/DISCHARGE PLAN OF CARE ACTIVITIES PLAN Date: 09/04/21 Identified Need: Life Enrichment Intervention/Plan: Activity cart, patient devices (laptop), visitation offered. Initials: [facility] DISCHARGE PLAN Date: 09/04/21 Identified Need: Access to oxygen Intervention/Plan: Patient requires housing prior to oxygen coordination Initials: [facility]
--- NOTE | 2021-09-04 07:57 | CMSA_ITS ---
- If Service Date Differs Date of service: 09/04/21 Time of Service: 07:57 SB Psychosocial/Act.Assessment - Hospital Admission Admission Date: 09/04/21 Admission From:: [facility] Observation status due to houselessness and oxygen require ment. - Swing Bed Admission Swing Bed Admit Date:: 09/04/21 Swing Bed Level of Care: Level 2/ICF - Social Supports PREVIOUS FUNCTIONAL STATUS/SOCIAL/FAMILY SUPPORTS:: Nathan presents with his [facility] worker, Marko King. Nathan is homeless, previously housed at [facility]. His TECHNOLOGIES DIVISION CHAIR CM Ann reports he has been staying in a tent at [facility] the last few days. Most of his health problems are psychiatric in nature, including his poor self care. He has an appointment with Hina Hadley NP at [facility] already scheduled, per piped pocket machine operator. - Prior to Admission Living Arrangements/Environment Prior to Admission:: Placed in tent, outside, with no oxygen, by [facility] TECHNOLOGIES DIVISION CHAIR Program. Presented to [facility] with COPD exacerbation, with pnemonia. - : No [place]'s Spouse: No - Benefits Financial: Medicare, Medicaid - Jewish Active Jehovah'S Witness Member:: No Will Jehovah'S Witness Members or Sander Portable Machine Visit:: No - Advance Directives for Healthcare If no AD, do you want more information:: No - Medical History PAST MEDICAL HISTORY/PAST SURGICAL HISTORY:: Hyperlipidemia. Obesity (BMI 30- 39.9). Palliative care patient. Schizophrenia - Admission Data Reason for Swing Bed Admission:: No oxygen access in the setting of houselessness. Discharge Plan:: Support coordination of housing. Assessment: Community barriers to discharge resulting in SWB2 for housing/oxygen. Detective Bureau Chief: Gali Mix Date Assessment was completed:: 09/04/21
--- NOTE | 2021-09-04 07:57 | CM.SBPSYCH ---
- If Service Date Differs Date of service: 09/04/21 Time of Service: 07:57 SB Psychosocial/Act.Assessment - Hospital Admission Admission Date: 09/04/21 Admission From:: [facility] Observation status due to houselessness and oxygen requirement. - Swing Bed Admission Swing Bed Admit Date:: 09/04/21 Swing Bed Level of Care: Level 2/ICF - Social Supports PREVIOUS FUNCTIONAL STATUS/SOCIAL/FAMILY SUPPORTS:: Nathan presents with his [facility] worker, Marko King. Nathan is homeless, previously housed at [facility]. His CRIME SPECIALIST CM Ann reports he has been staying in a tent at [facility] the last few days. Most of his health problems are psychiatric in nature, including his poor self care. He has an appointment with Hina Hadley NP at [facility] already scheduled, per skimmer. - Prior to Admission Living Arrangements/Environment Prior to Admission:: Placed in tent, outside, with no oxygen, by [facility] CRIME SPECIALIST Program. Presented to [facility] with COPD exacerbation, with pnemonia. - : No 's Spouse: No - Benefits Financial: Medicare, Medicaid - Episcopalian Active Baptism Member:: No Will Baptism Members or Android Platform Developer Visit:: No - Advance Directives for Healthcare If no AD, do you want more information:: No - Medical History PAST MEDICAL HISTORY/PAST SURGICAL HISTORY:: Hyperlipidemia. Obesity (BMI 30-39.9). Palliative care patient. Schizophrenia - Admission Data Reason for Swing Bed Admission:: No oxygen access in the setting of houselessness. Discharge Plan:: Support coordination of housing. Assessment: Community barriers to discharge resulting in SWB2 for housing/oxygen. Survey Cad Technician: Gali Mix Date Assessment was completed:: 09/04/21
--- NOTE | 2021-09-04 09:11 | HPE_ITS ---
Date of service: 09/04/21 Time of Service: 09:11 Assessment and Plan Assessment and plan (1) Acute exacerbation of chronic obstructive pulmonary disease: Status: Resolved Assessment and plan: COPD exacerbation; pneumonia. completed 5 days of ceftriaxone and doxycycline He does not have access to his oxygen - currently living in a tent. Continue: - Symbicort 80-4.5 and Spiriva - albuterol prn - Duonebs prn - Exercise oximetry respiratory therapy continues to be working on obtaining oxygen (2) Tobacco dependence: Status: Acute Assessment and plan: smoking cessation discussed Nicotrol inhaler if needed for symptoms (3) Homeless single person: Status: Acute Assessment and plan: will need assistance from case management/social work ? care bed discharge - still considering (4) Bipolar 1 disorder: Status: Acute Assessment and plan: - Continue home meds (5) Diabetes: Status: Chronic Assessment and plan: Continue home meds blood sugars have been well controlled under 150 will stop ac/hs blood sugar checks and sliding scale coverage continue carb controlled diet (6) HTN (hypertension): Status: Chronic Assessment and plan: Continue home meds continues to have some high readings, will increase lisinopril to 40 mg daily will monitor and adjust as needed. (7) Obstructive sleep apnea: Status: Chronic Assessment and plan: patient does not use CPAP at home, although it is recommended. (8) Respiratory failure with hypoxia: Status: Chronic Assessment and plan: supplemental O2 for sats 88-92% discharge will be difficult with his current living situation and need for oxygen. He has been non compliant with oxygen and refused cpap for jeremias in the past; he continues to smoke and that is causing some of his current housing issues as he has been told he can not return to several area motels due to smoking in the room. (9) Depression: Status: Chronic Assessment and plan: continue viibryd, need to obtain additional dosing (home supply out) pharmacy and care management working on obtaining it. (10) Discharge planning issues: Status: Acute Assessment and plan: case management following for discharge planning. Reviewed with Dr Sampson History of Present Illness History of Present Illness Chief Complaint: shortness of breath Narrative: This is a 61 yo man with a significant psych history (last admission here at end of July was psych related) and severe oxygen dependant COPD (with non-compliance with O2 and continue to smoke tobacco) not on any inhaler therapy (per MAR) and who has JEREMIAS but does not wear CPAP who is being admitted for a COPD exacerbation and concern for a pneumonia. He does not have clear admission criteria, however he was kicked out' of the [facility] and left without his oxygen and reportedly has no way of obtaining them currently. His CXR is read as multilobar pneumonia, however it was not believed to be so by tapper operator, He was admitted his to observation and treatment him for an exacerbation of COPD and for a potential pneumonia. He was treated with ceftriaxone and doxycycline completing a 5 day course.? He has remained at his baseline.? He was non compliant with oxygen, only wearing briefly when reminded.? He unfortunately could not be safely discharged as we were unable to obtain oxygen (homeless, needs credit card on file as he has abandoned equipment multiple time, non compliant).? Case management has been following and has been working on discharge planning.? referrals are pending.? ? He will need to stay here under swing bed level 2 while seeking a discharge.? discussed with DR Sampson Review of Systems All systems reviewed & are unremarkable except as noted in HPI and below Constitutional Constitutional: Denies fever(s) Cardiovascular Cardiovascular: Denies dyspnea and Reports dyspnea on exertion Respiratory Respiratory: Reports cough (occasional), Denies dyspnea and Reports dyspnea on exertion Psychiatric Psychiatric: Reports depression PFSH All Active Problems (Updated 09/04/21 @ 09:20 by Rosaline Justice NP) Discharge planning issues (Acute) Depression (Chronic) Tobacco dependence (Acute) Respiratory failure with hypoxia (Chronic) Supplemental oxygen dependent (Acute) Homeless single person (Acute) Bipolar 1 disorder (Acute) Obesity (Chronic) Incontinence of urine (Acute) Diabetes (Chronic) Discharge planning issues (Acute) DVT prophylaxis (Acute) HTN (hypertension) (Chronic) Obstructive sleep apnea (Chronic) COPD (chronic obstructive pulmonary disease) (Chronic) Suicidal ideations (Acute) Hallucinations (Acute) Hypertension (Chronic) Medical History (Updated 09/04/21 @ 09:20 by Rosaline Justice NP) Hyperlipidemia Obesity (BMI 30-39.9) Palliative care patient Schizophrenia Family History Other Adopted Social History (Updated 12/05/20 @ 16:51 by Kathya Wang MD) Smoking/Tobacco Use Status: Current every day Tobacco Type: cigarettes Smoking risk assessment performed?: Yes Alcohol Intake: former Drug use: Never Substance use type: does not use Caregiver/Support person: No Household members: none Housing: homeless Number of Children: 0 Communication Needs: Hard of Hearing and Corrective Lenses Education Level: high school Do you need help understanding health information?: Always current occupation: disabled due to mental illness Pets and animals: No Current gender identity: male What is your relationship status?: never How often do you talk on the phone with friends or family?: never How often do you get together with friends or relatives?: never Panel score (0-1 are the most socially isolated patients): 0 What type of physical activity do you participate in: none and sedentary lifestyle Frequency: does not exercise Special mannie needs: No Seatbelt use: always Do you feel safe at home: No (hallucinating re dying) Do you feel safe in your relationship?: Yes Additional Social history: Nathan presents with his [facility] worker, Marko King. Nathan is homeless, currently housed at [facility]. He has been asked to leave, partly as his housing was paid for through [employer] grants that have come to an end, and partly due to his chronic urinary incontinence. He has ruined more than one mattress since living at the [facility]. He used to live in [place], [place] with his mother. He says I'm not allowed to speak to her. Marko and other [facility] staff are trying to find Nathan placement. He lived briefly at the [facility] before being transferred to the [facility]. Most of his health problems are psychiatric in nature, including his poor self care. We were able to get him an appointment with Hina Hadley NP at [facility] for the day after my visit with Nathan. Meds Allergies and Home Medications Allergies Allergy/AdvReac Type Severity Reaction Status Date / Time Penicillins Allergy Severe Anaphylaxis Unverified 08/30/21 08:45 dextromethorphan Allergy Mild Skin Rash Unverified 08/30/21 08:47 [From Dimetapp Cold-Congestion] diphenhydramine Allergy Mild Skin Rash Unverified 08/30/21 08:47 [From Dimetapp Cold-Congestion] guaifenesin Allergy Mild Skin Rash Unverified 08/30/21 08:47 [From Dimetapp Cold-Congestion] phenylephrine Allergy Mild Skin Rash Unverified 08/30/21 08:47 [From Dimetapp Cold-Congestion] pseudoephedrine Allergy Mild Skin Rash Unverified 08/30/21 08:47 [From Dimetapp Cold-Congestion] bupropion [From Wellbutrin] AdvReac Intermediate Other (See Unverified 08/30/21 08:47 Comment) Home Medications Medication Instructions Recorded Confirmed Type cholecalciferol (vitamin D3) 25 25 mcg PO DAILY 07/31/20 08/29/21 History mcg (1,000 unit) tablet hydrocortisone 1 % topical cream 1 applic topical BID 08/01/20 08/29/21 History aripiprazole 5 mg tablet (Abilify) 5 mg PO DAILY 03/13/21 08/29/21 History lisinopril 30 mg tablet 30 mg PO DAILY 03/13/21 08/29/21 History metformin 750 mg tablet,extended 750 mg PO DAILY 03/13/21 08/29/21 History release 24 hr oxybutynin chloride 10 mg 20 mg PO DAILY #60 tabs 03/13/21 08/29/21 Rx tablet,extended release 24 hr vilazodone 40 mg tablet (Viibryd) 40 mg PO DAILY 03/13/21 08/29/21 History ziprasidone HCl 40 mg capsule 40 mg PO QHS 08/29/21 08/30/21 History
[2021-09-04 14:43] VITALS: BP 148/93; PULSE 56; RESP 18; TEMP 36.6; O2SAT 91
[2021-09-04] MEDS: Acetaminophen 325 MG TAB 650 MG PO ×2 (15:36→20:36)
[2021-09-04] MEDS: Budesonide/Formoterol 80/4.5 6.9 GM 60 PUFF INH IH (20:36)
[2021-09-05 07:37] VITALS: BP 137/85; PULSE 63; RESP 18; TEMP 36.3; O2SAT 92
[2021-09-05] MEDS: Budesonide/Formoterol 80/4.5 6.9 GM 60 PUFF INH IH ×2 (07:59→20:14)
[2021-09-05] MEDS: Tiotropium Bromide-Respimat 10 PUFF INH 2 PUFF IH (07:59)
--- NOTE | 2021-09-05 08:17 | CMPROGNOTE_ITS ---
- If Service Date Differs Date of service: 09/05/21 Time of Service: 08:17 Care Management Progress Note CM spoke with Khushboo of [facility] and reviewed needed insurance and income information, Khushboo advised she would review clinical materials, but intends on offering Nathan a bed. CM confirmed with Nathan that he is seeking housing at [facility] and is agreeable to monthly cost, $761.38. Nathan reported he is hopeful he could be successful at [facility] as he knows others who live there, and work in the community. CM spoke with [facility] who advised Natahn will need to provide credit card number for his file, to fill new equipment. CM to support Nathan in providing information to [facility] and to connect Nathan via phone with his bank, [employer]. COMMUNITY CENTER COORDINATOR reported further financial information would need to be reviewed with Director of COMMUNITY CENTER COORDINATOR; Shekhar. Khushboo reported waiting to hear from COMMUNITY CENTER COORDINATOR CM Zuri to provide insurance information and income information; CM provided this information to Khushboo directly. No further barriers have been identified. Anticipate bed offer on , 09/06/21; CM to notify RT when [facility] credit information has been provided.
[2021-09-05] MEDS: Acetaminophen 325 MG TAB 650 MG PO ×4 (08:35→20:13)
[2021-09-05] MEDS: Cholecalciferol (Vitamin D3) 1,000 UNIT TAB 1000 UNITS PO (08:36)
[2021-09-05] MEDS: ARIPiprazole 5 MG TAB PO (08:36)
[2021-09-05] MEDS: Lisinopril 20 MG TAB 40 MG PO (08:36)
[2021-09-05] MEDS: Oxybutynin-CR 5 MG TABCR 20 MG PO (08:37)
[2021-09-05] MEDS: Pantoprazole 40 MG TABCR PO (08:38)
[2021-09-05 15:31] VITALS: PULSE 54; PULSE 55; PULSE 56; PULSE 58; RESP 18; RESP 19; O2SAT 83; O2SAT 90
[2021-09-05 15:39] VITALS: BP 148/98; PULSE 60; RESP 19; TEMP 36.1; O2SAT 94
--- NOTE | 2021-09-05 16:02 | CHAPLAIN ---
Nathan was up in the chair when I visited. He said he's doing ok and that being here is better than being homeless. He was polite and engaged in a conversation. He asked for more water when I asked if I could get him anything. He said he's been in touch with his [employer] person.
[2021-09-05 16:03] VITALS: BP 150/95; PULSE 55; RESP 18; TEMP 36.6; O2SAT 92
[2021-09-06] MEDS: Tiotropium Bromide-Respimat 10 PUFF INH 2 PUFF IH (08:31)
[2021-09-06] MEDS: Budesonide/Formoterol 80/4.5 6.9 GM 60 PUFF INH IH ×2 (08:31→19:49)
[2021-09-06 08:35] VITALS: BP 123/68; PULSE 66; RESP 20; TEMP 36.3; O2SAT 84
[2021-09-06] MEDS: ARIPiprazole 5 MG TAB PO (09:06)
[2021-09-06] MEDS: Oxybutynin-CR 5 MG TABCR 20 MG PO (09:06)
[2021-09-06] MEDS: Lisinopril 20 MG TAB 40 MG PO (09:07)
[2021-09-06] MEDS: Cholecalciferol (Vitamin D3) 1,000 UNIT TAB 1000 UNITS PO (09:07)
[2021-09-06] MEDS: Pantoprazole 40 MG TABCR PO (09:07)
[2021-09-06] MEDS: Acetaminophen 325 MG TAB 650 MG PO ×2 (09:07→19:48)
--- NOTE | 2021-09-06 11:31 | PDOC.CMPRO ---
- If Service Date Differs Date of service: 09/06/21 Time of Service: 11:31 Care Management Progress Note Zuri left message for CM stating she had not yet brought Nathan's medications as requested on Friday, and would bring them today (). She also advised the HOME CARE MANAGER RN Director, Laura continued to play phone tag with Khushboo. CM did not recieve call back from message left for Laura on Friday, as well. Zuri has reported daily since admission that barrier to discharge was central to Laura and Khushboo connecting. Khushboo reports awaiting insurance coverage information and income information for Nathan; CM provided. Nathan provided credit card number to [facility], RT reports O2 process is completed, and tank will be delivered to [facility]. Anticipate Nathan will discharge to [facility] today or tomorrow, with new home O2 through [facility] and transport via [facility]. HOME CARE MANAGER RN will be informed once discharge timing is known.
--- NOTE | 2021-09-06 14:06 | CHAPLAIN ---
I had a brief visit with Nathan to give him a comfort shawl. He said he didn't need the blanket, but was appreciative of it. He said he thought he was being discharged to [facility] today but he is not certain. According to Care Management notes, Nathan is currently without a home, and is supported in the community by [facility] who provided him with a tent. He needs oxygen so he needs to be some place that has electricity.
[2021-09-06 15:32] VITALS: BP 148/107; PULSE 61; RESP 18; TEMP 36.2; O2SAT 94
--- NOTE | 2021-09-06 18:17 | W.PM.DS.N ---
Date of service: 09/07/21 Time of Service: 08:00 DS: Diagnosis Discharge Diagnosis (1) Acute exacerbation of chronic obstructive pulmonary disease: Status: Resolved (2) Tobacco dependence: Status: Acute (3) Homeless single person: Status: Deleted (4) Bipolar 1 disorder: Status: Acute (5) Diabetes: Status: Chronic (6) HTN (hypertension): Status: Chronic (7) Obstructive sleep apnea: Status: Chronic (8) Respiratory failure with hypoxia: Status: Chronic (9) Depression: Status: Chronic (10) Discharge planning issues: Status: Deleted Discharge Plan Disposition Patient Disposition: [facility] Condition: Stable Discharge Details Reason For Visit: COPD Exacerbation Admit Date/Time: 09/04/21 09:05 Admit Provider: Konrad Sampson Attending Provider: Konrad Sampson Primary Care Provider: Hina Hadley Hospital Course Hospital Course: This 61 yo man with past medical history including psychiatric and severe oxygen dependent COPD. He arrived to [facility] ED with wheezing and dyspnea and was admitted for a COPD exacerbation and pneumonia. He was given ceftriaxone, doxycycline, duonebs abd started on Symbicort. He did not have any inhaler therapy prior to admission. He is homeless and does not have a support system in place. He has some compliance issues with the oxygen. He was last staying @ the [facility], but was told not to come back after having been found to be smoking inside the motel room. He has remained at his baseline.? He was non compliant with oxygen during hospitalization, only wearing briefly when reminded.? He does not wear CPAP. There was discussion regarding smoking cessation, the severity of his chronic lung disease and safety regarding the use of oxygen, as well as using the oxygen in general. He is being discharged on 4L of O2 by [place] at rest and with activity per exercise oximetry testing. He has been accepted at [facility]. He is discharged with SABD, LABD and ICS Care for patient as well as completion of his discharge summary took 90 minutes. ? Discussed with Dr Whiting Warren Meds and New Rx's Prescriptions: New albuterol sulfate [Ventolin HFA] 90 mcg/actuation Hfa Aerosol Inhaler 2 puff inhalation Q6H PRN PRNQty: 8.5 0RF budesonide-formoterol [Symbicort] 80-4.5 mcg/actuation Hfa Aerosol Inhaler 2 puff inhalation BID Qty: 10.2 0RF Spiriva Respimat 2.5 mcg/actuation Mist 2 puff inhalation DAILY Qty: 4 0RF Continued lisinopril 30 mg tablet 30 mg PO DAILY metformin 750 mg tablet extended release 24 hr 750 mg PO DAILY Viibryd 40 mg tablet 40 mg PO DAILY Rx Instructions: must administer with a meal/food aripiprazole [Abilify] 5 mg tablet 5 mg PO DAILY oxybutynin chloride 10 mg tablet extended release 24hr 20 mg PO DAILY Qty: 60 6RF Rx Instructions: Take 2 tabs of the 10mg extended release daily cholecalciferol (vitamin D3) 25 mcg (1,000 unit) tablet 25 mcg PO DAILY Label Comments: 1 daily hydrocortisone 1 % Cream 1 applic topical BID ziprasidone HCl 40 mg capsule 40 mg PO QHS Discharge Instructions Instructions: How to Stop Smoking (DC), Cigarette Smoking and Your Health (GEN), Chronic Bronchitis (DC) Additional Instructions: Stop smoking. Use oxygen as recommended. Stand Alone Forms: Nursing Discharge Form Referrals: Hina Hadley [Primary Care Provider] - 09/11/21 3:30 pm Activity:: Activity as Tolerated Equipment/Supplies:: Oxygen (L/min Below) Diet:: Carb Counting Discharge Orders Discharge Orders: Discharge Order (Routine); Ordered 09/07/21 Ordered By: Lesvia Hayden Discharge Data Discharge Date/Time-TO BE ENTERED AT DEPARTURE: 09/07/21 10:41 DS: Summary Time Spent with Patient providing and/or coordinating discharge services: Greater than 30 minutes Status at Discharge Functional status at discharge: independent ambulation Overall status at discharge: patient is back to baseline Mental Status: mental status grossly normal Speech and Movement: speech and movement normal Mood: congruent mood Affect: normal affect Exam Const General: comfortable, no acute distress, disheveled and ill appearing chronically Nutritional Appearance: obese Orientation: alert, awake and oriented x3 HENMT Head: normal to inspection, normocephalic and atraumatic Mouth: oral mucosae normal Neck Neck: normal visual inspection and full ROM Chest Chest: normal inspection of the chest Resp Effort & Inspection: normal respiratory effort Auscultation: diminished lung sounds (throughout, no coarse breath sounds) Cardio Rate: regular rate Rhythm: regular rhythm GI Inspection: normal to inspection Palpation: soft Auscultation: normal bowel sounds Skin General skin exam: no rashes or lesions noted Neuro General: patient alert, patient awake, patient oriented x3 and no focal motor deficits Extrem General: normal to inspection and full ROM Psych Mental Status: mental status grossly normal Speech and Movement: speech and movement normal Mood: congruent mood Affect: normal affect DS: Data Vitals/I&O Vitals and I&O: Vital Signs Temperature 36.2 C L 09/06/21 15:32 Temperature Source Tympanic 09/06/21 15:32 Pulse 61 09/06/21 15:32 Pulse Rhythm Regular 09/06/21 16:02 Respiratory Rate 18 09/06/21 15:32 Respiratory Effort 09/06/21 16:02 Respiratory Depth Normal 09/06/21 16:02 Respiratory Pattern Normal 09/06/21 16:02 Blood Pressure 148/107 H 09/06/21 15:32 Pulse Oximetry 94 09/06/21 15:32 Oxygen Delivery Method Nasal Cannula 09/06/21 15:32 Oxygen Flow Rate 1 09/06/21 15:32 Pain Level 4 09/06/21 15:32 Comment 09/06/21 08:35 Intake & Output 09/05/21 09/06/21 09/06/21 23:59 11:59 23:59 Intake Total 520 / 880 480 / 720 240 / 720 Output Total 850 / 1800 1000 / 1000 Balance -330 / -920 -520 / -280 240 / -280 Intake: Oral 520 / 880 480 / 720 240 / 720 Output: Urine 850 / 1800 1000 / 1000 Other: Urine Color Yellow Yellow Urine Appearance Clear Clear Urine Odor None Comment pT refused to go use bathroom at this time, he did stated that he just got up few minutes ago to void into toilet. pT stated that he went to the bathroom about an hour ago. Voiding Methods Toilet Toilet PFSH All Active Problems (Updated 09/08/21 @ 00:01 by HANNA CAMARENA) Depression (Chronic) Tobacco dependence (Acute) Respiratory failure with hypoxia (Chronic) Supplemental oxygen dependent (Acute) Bipolar 1 disorder (Acute) Obesity (Chronic) Incontinence of urine (Acute) Diabetes (Chronic) Discharge planning issues (Acute) DVT prophylaxis (Acute) HTN (hypertension) (Chronic) Obstructive sleep apnea (Chronic) COPD (chronic obstructive pulmonary disease) (Chronic) Suicidal ideations (Acute) Hallucinations (Acute) Hypertension (Chronic) Medical History Hyperlipidemia Obesity (BMI 30-39.9) Palliative care patient Schizophrenia Family History Other Adopted Social History Smoking/Tobacco Use Status: Current every day Tobacco Type: cigarettes Smoking risk assessment performed?: Yes Alcohol Intake: former Drug use: Never Substance use type: does not use Caregiver/Support person: No Household members: none Housing: homeless Number of Children: 0 Communication Needs: Hard of Hearing and Corrective Lenses Education Level: high school Do you need help understanding health information?: Always current occupation: disabled due to mental illness Pets and animals: No Current gender identity: male What is your relationship status?: never How often do you talk on the phone with friends or family?: never How often do you get together with friends or relatives?: never Panel score (0-1 are the most socially isolated patients): 0 What type of physical activity do you participate in: none and sedentary lifestyle Frequency: does not exercise Special mannie needs: No Seatbelt use: always Do you feel safe at home: No (hallucinating re dying) Do you feel safe in your relationship?: Yes Additional Social history: Nathan presents with his [facility] worker, Marko King. Nathan is homeless, currently housed at [facility]. He has been asked to leave, partly as his housing was paid for through [employer] grants that have come to an end, and partly due to his chronic urinary incontinence. He has ruined more than one mattress since living at the [facility]. He used to live in [place], [place] with his mother. He says I'm not allowed to speak to her. Marko and other [facility] staff are trying to find Nathan placement. He lived briefly at the [facility] before being transferred to the [facility]. Most of his health problems are psychiatric in nature, including his poor self care. We were able to get him an appointment with Hina Hadley NP at [facility] for the day after my visit with Nathan.
[2021-09-06 19:40] VITALS: BP 178/97; PULSE 59; RESP 18; TEMP 36.8; O2SAT 96
[2021-09-07 07:55] VITALS: BP 137/85; PULSE 77; RESP 16; TEMP 36; O2SAT 87
[2021-09-07] MEDS: Lisinopril 20 MG TAB 40 MG PO (08:44)
[2021-09-07] MEDS: Pantoprazole 40 MG TABCR PO (08:44)
[2021-09-07] MEDS: Cholecalciferol (Vitamin D3) 1,000 UNIT TAB 1000 UNITS PO (08:44)
[2021-09-07] MEDS: ARIPiprazole 5 MG TAB PO (08:44)
[2021-09-07] MEDS: Oxybutynin-CR 5 MG TABCR 20 MG PO (08:45)
[2021-09-07] MEDS: Budesonide/Formoterol 80/4.5 6.9 GM 60 PUFF INH IH (09:33)
[2021-09-07] MEDS: Tiotropium Bromide-Respimat 10 PUFF INH 2 PUFF IH (09:47)
--- NOTE | 2021-09-07 14:53 | PDOC.CMDIS ---
- If Service Date Differs Date of service: 09/07/21 Time of Service: 14:53 LACE Index Scoring Tool - Questions: Length of Stay (in days): 7 - 13 Acuity (Admit via E.D.?): Yes Comorbidities: Chronic Pulmonary Disease E.D. Visits: 2 - Answers: Total Score: 12 Risk of Readmission: High Risk Care Management Discharge Reason for Hospitalization: COPD Exacerbation [place] [facility] [place] [facility]. Nathan will follow up with his community based providers and plan of care. Transport coordinated through [facility]. Patient/Family Education Needs: Review discharge instructions, discuss Ask Me Three. 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
== END 2021-09-07 10:41 | disposition designated cancer center or children's hospital (05) | DRG 190 ==
PROVIDERS: Admitting Provider Internal Medicine; PCP Nurse Practitioner; Visit Provider Internal Medicine
DX: J44.1 Chronic obstructive pulmonary disease with (acute) exacerbation (principal); J18.9 Pneumonia, unspecified organism; J96.11 Chronic respiratory failure with hypoxia; J44.0 Chronic obstructive pulmonary disease with (acute) lower respiratory infection; F17.210 Nicotine dependence, cigarettes, uncomplicated; Z59.00 Homelessness unspecified; E11.9 Type 2 diabetes mellitus without complications; F31.9 Bipolar disorder, unspecified; I10 Essential (primary) hypertension; G47.33 Obstructive sleep apnea (adult) (pediatric); Z91.19 Patient's noncompliance with other medical treatment and regimen; Z99.81 Dependence on supplemental oxygen; E66.9 Obesity, unspecified; Z68.31 Body mass index [BMI] 31.0-31.9, adult; R32 Unspecified urinary incontinence; F20.9 Schizophrenia, unspecified
CPT/HCPCS: 94618; 94640; 99306; 99316; 94760

== ENCOUNTER → 2021-09-26 09:25 | Outpatient (BNVA) | payer MEDICARE, MEDICAID, SELFPAY | PROVIDERS: PCP Nurse Practitioner; Referring Provider Nurse Practitioner; Visit Provider Nurse Practitioner Gerontology | DX: E11.9 Type 2 diabetes mellitus without complications (principal); R32 Unspecified urinary incontinence | CPT/HCPCS: 51798; 99215 ==

== ENCOUNTER 2021-10-26 10:50 | Outpatient (REF) | payer MEDICARE, MEDICAID, SELFPAY ==
[2021-10-28 11:26] LABS: COVID-19 RT-PCR UVMMC Result Negative (Negative)
== END 2021-10-26 10:51 | disposition home or self-care (01) ==
LOC: LBN 10:50
PROVIDERS: PCP Nurse Practitioner Family; Visit Provider Physician Assistant
DX: Z20.822 Contact with and (suspected) exposure to COVID-19 (principal)
CPT/HCPCS: U0003

== ENCOUNTER 2021-11-12 18:35 | Outpatient (REF) | payer MEDICARE, MEDICAID, SELFPAY ==
[2021-11-13 17:59] LABS: Albumin ug/mg Crea 77 (<30); Albumin, Ur 4.2 mg/dL (See Note); Creatinine, Ur 54.4 mg/dL (See Note)
== END 2021-11-12 18:36 | disposition home or self-care (01) ==
LOC: NCHCN 18:35
PROVIDERS: PCP Nurse Practitioner Family; Visit Provider Nurse Practitioner Family
DX: E11.9 Type 2 diabetes mellitus without complications (principal)
CPT/HCPCS: 82043; 82570

== ENCOUNTER → 2022-01-30 14:58 | Outpatient (BNVA) | payer MEDICARE, MEDICAID, SELFPAY | PROVIDERS: PCP Nurse Practitioner Family; Referring Provider Nurse Practitioner Family; Visit Provider Nurse Practitioner Gerontology | DX: R32 Unspecified urinary incontinence (principal) | CPT/HCPCS: 51798; 99215 ==

== ENCOUNTER → 2022-02-27 01:01 | Outpatient (CLI) | payer MEDICARE, MEDICAID, SELFPAY ==
--- NOTE | 2022-02-27 07:37 | DI.CTLCSR_ITS ---
Exam(s) CT CHEST LUNG CANCER SCREEN EXAM: CT CHEST LUNG CANCER SCREEN CLINICAL HISTORY: Screening for lung cancer,current smoker, f17.210 TECHNIQUE: Imaging Protocol: Axial computed tomography images with coronal and sagittal reformatted images were created and reviewed COMPARISON: No exams were available for comparison FINDINGS: Tracheobronchial tree: Patent where visualized. Pulmonary parenchyma: No consolidation or dominant measurable mass. There are areas of linear scarrin g or atelectasis in the lung bases. Lung Nodules: There is a 2 mm subpleural nodule in the right middle lobe. Mediastinum and Elina: No dominant adenopathy or fluid collection. The esophagus is unremarkable. Thyroid gland: Unremarkable. Lymph nodes: Unremarkable. Pleura: No effusion or pneumothorax. Heart: The heart is not dilated. Coronary artery calcifications are present. No pericardial effusion . Aorta: Thoracic aorta non-dilated.Atherosclerosis is present. Upper abdomen: There appears to be a 1.7 cm left adrenal nodule. There is a 1.4 cm hypodense nodule in the left lobe of the liver. Soft Tissues: Unremarkable. Bones: Within normal limits. IMPRESSION: 2 mm subpleural right middle lobe nodule. Lung RADS Cat 2 - Benign Appearance / Behavior: Nodules with a very low likelihood of becoming a clin ically active cancer due to size or lack of growth Lung-RADS 1.0 CATEGORIES: Category 0 - Prior chest CT exam(s) being located for comparison. Category 1 - Annual screening in 12 months. No nodules or definitely benign nodules. Category 2 - Annual screening in 12 months. Benign appearance. Nodules with low likelihood of becomin g active cancer. Category 3 - 6-month follow-up. Probably benign. Short-term follow-up suggested. Nodules with low lik elihood of becoming active cancer. Category 4A - 3-month follow-up and CT/PET if >8 mm in size. Suspicious finding. Findings which requi re additional testing. Category 4B - Findings which require additional testing and tissue sampling. Suspicious finding. Category 4X - Category 3 or 4 nodules with additional features or imaging findings that increases the suspicion of malignancy. Modifier S- Potentially clinically significant finding. (Non lung cancer) RADIATION DOSE DELIVERED: 101.1mGy.cm Total DLP 101.1mGy.cmTotal DLP DATA REPOSITORY: All CT scans at this facility are submitted to the National Radiology Data Registry (NRDR) Dose Index Registry (DIR) with the [employer] (A[employer]). RADIATION OPTIMIZATION: All CT scans at this facility use at least one of these dose optimization te chniques: automated exposure control; mA and/or kV adjustment per patient size (includes targeted exa ms where dose is matched to clinical indication); or iterative reconstruction.
== END ==
PROVIDERS: PCP Nurse Practitioner Family; Visit Provider Student in an Organized Health Care Education/Training Program
DX: F17.210 Nicotine dependence, cigarettes, uncomplicated (principal); Z12.2 Encounter for screening for malignant neoplasm of respiratory organs; R91.1 Solitary pulmonary nodule
CPT/HCPCS: 71271

== ENCOUNTER 2022-04-12 11:31 | Emergency (ER) | payer MEDICARE, MEDICAID, SELFPAY ==
[2022-04-12] VITALS (71 sets, daily range): BP systolic 75–205; BP diastolic 48–141; PULSE 61–114; RESP 5–38; TEMP 36.7; O2SAT 83–99
--- NOTE | 2022-04-12 12:00 | DI.RAD_ITS ---
Exam(s) XR PORTABLE CHEST AP EXAM: XR PORTABLE CHEST AP CLINICAL HISTORY: covid TECHNIQUE: 2D digital imaging was performed of the chest. Two images were obtained. AP views were obtained. COMPARISON: CR,XR XR PORTABLE CHEST AP from 08/29/2021 FINDINGS: MEDIASTINUM: Normal. HEART: Upper limits of normal to mildly enlarged. PULMONARY VASCULATURE: Normal. LUNGS: There are increased lung markings in the bases particularly in the medial aspect of the left l júnior. PLEURAL SPACE: No pleural effusion or pneumothorax. BONE:Within normal limits for the patient's age. OTHER FINDINGS:Normal. IMPRESSION: Increased lung markings in the bases. Atelectasis versus pneumonia. DATA REPOSITORY: RADIATION DOSE DELIVERED:
--- NOTE | 2022-04-12 12:15 | RT.EKG_ITS ---
APPROVED REPORT Exam: Resting ECG Reason for Exam: covid, respiratory distress Patient Location: E HR:106 bpm ECG Measurements Heart Rate 106 AXIS MN 123 P 74 QRSd 145 QRS 101 QT 362 T -54 QTc 480 Conclusion Sinus tachycardia...rate> 99 Atrial premature complex...SV complex w/ short R-R interval Right bundle branch block...QRSd>120, terminal axis(90,270)
[2022-04-12] MEDS: Albuterol/Ipratropium 3 ML UPD VIAL UPD (12:28)
[2022-04-12 12:35] LABS: BE (Venous) 7 mmol/L (-2-3); HCO3 (Venous) 36 mmol/L (23-28); O2 Sat (Venous) 77 %; TCO2 (Venous) 33 mmol/L (24-29); pO2 (Venous) 56 mmHg
[2022-04-12 12:37] LABS: Absolute Basophil Count 0.03 10^3/uL (0.0-0.2); Absolute Eosinophil Count 0.01 10^3/uL (0.0-0.7); Absolute Lymphocyte Count 1.05 10^3/uL (1.2-3.4); Absolute Monocyte Count 1.28 10^3/uL (0.1-0.8); Absolute Neutrophil Count 8.04 10^3/uL (1.2-6.7); Basophils % 0.3; Eosinophils % 0.1; HGB 16.7 g/dL (13.5-17.5); MCHC 30.9 % (32.0-36.0); MCV 91 fL (80-95); MPV 9.9 fL (8.0-11.0); Monocytes % 12.2; Neutrophils % 76.4; Nucleated RBC 1.1 % (0.0-0.3); Platelet Count 370 10^3/uL (130-400); RBC 5.96 10^6/uL (4.36-5.78); RDW 16.1 % (11.8-14.1); RDW-SD 51.5 fL; WBC 10.51 10^3/uL (4.4-10.8)
[2022-04-12 12:39] LABS: pCO2 (Venous) 100 mmHg (41-51); pH (Venous) 7.16 (7.31-7.41)
[2022-04-12 12:40] LABS: Lactate 2.6 mmol/L (0.6-1.4)
--- NOTE | 2022-04-12 12:42 | W.ED.GENAD ---
Discharge Plan Disposition Patient Disposition: Transfer-Acute Inpatient Care Specific Acute Inpt Facility: [facility] Condition: Critical Discharge Details Clinical Impression: COVID-19, MICHAEL (acute kidney injury), Elevated troponin, Acute respiratory failure with hypoxia and hypercapnia, CHF (congestive heart failure) Primary Care Provider: MIMI PEREZ ED Provider: Maxi Shepherd Home Meds and New Rx's Prescriptions: No Action lisinopril 30 mg tablet 30 mg PO DAILY metformin 750 mg tablet extended release 24 hr 750 mg PO DAILY Viibryd 40 mg tablet 40 mg PO DAILY Rx Instructions: must administer with a meal/food aripiprazole [Abilify] 5 mg tablet 5 mg PO DAILY Incruse Ellipta 62.5 mcg/actuation blister with device 1 inh inhalation DAILY albuterol sulfate [Ventolin HFA] 90 mcg/actuation HFA aerosol inhaler 2 puff inhalation Q6H PRN PRN (Reason: shortness of breath or wheezing) Qty: 8.5 12RF ipratropium-albuterol 0.5 mg-3 mg(2.5 mg base)/3 mL solution for nebulization 3 ml inhalation Q4H PRN (Reason: wheezing) Qty: 540 12RF (DME) blood-glucose meter Misc See Rx Instructions .Route Rx Instructions: As directed simvastatin 20 mg tablet 20 mg PO QHS (DME) Disposable Brief Jumbo X-Large Misc See Rx Instructions .Route Rx Instructions: As directed (DME) Blood Glucose Test Strip See Rx Instructions .Route Rx Instructions: As directed (DME) lancets [OneTouch UltraSoft Lancets] Misc See Rx Instructions .Route Rx Instructions: As directed (DME) oxygen and supplies 2 liters 0 .Route .MEDSUPPLY nystatin 100,000 unit/gram powder 1 applic topical BID oxybutynin chloride 15 mg tablet extended release 24hr 30 mg PO DAILY Qty: 60 11RF Rx Instructions: Note dosage change to 30mg daily cholecalciferol (vitamin D3) 25 mcg (1,000 unit) tablet 25 mcg PO DAILY Label Comments: 1 daily hydrocortisone 1 % Cream 1 applic topical BID ziprasidone HCl 40 mg capsule 40 mg PO QHS Paxlovid (EUA) 300 mg (150 mg x 2)-100 mg tablets,dose pack See Rx Instructions .ROUTE .COMPLEX Rx Instructions: twics a day budesonide-formoterol [Symbicort] 160-4.5 mcg/actuation HFA aerosol inhaler See Rx Instructions .ROUTE .COMPLEX Rx Instructions: 2 puffs BID Medical Decision Making 61-year-old male with history of COPD, recently diagnosed with COVID on 04/06, found in respiratory distress, cyanotic today by staff at psychiatric facility. EMS arrived to find the patient hypoxic saturating in the 60s on room air. CPAP rescue device was applied and patient saturating in the upper 80s low 90s on 5 L with PEEP of 5. On initial exam patient was able to follow some commands but became more obtunded. Initial labs revealed hypercapnic respiratory failure with respiratory acidosis. Patient was switched to BiPAP and monitored. He became more obtunded and hypoxic and was intubated for airway protection and respiratory failure. Patient did have significant secretions noted during intubation. Post intubation x-ray revealed ET tube in adequate position and near whiteout of right lung. Patient was hypoxic in the mid 80s on 100% oxygen. I suspected mucous plugging- ET tube was suctioned and pulse ox did improve. Patient was hypotensive initially on propofol infusion. Propofol was titrated down and blood pressure did improve with 1 L fluid bolus. Plan to initiate norepinephrine if blood pressure decreases. Additional labs reviewed and patient with elevated troponin, elevated BNP, concerning for acute CHF exacerbation. Creatinine is also elevated to 2.7 from baseline 0.9. BUN is elevated. I suspect is prerenal MICHAEL. Screening EKG was reviewed and interpreted by me: Please see report, right bundle branch block, sinus tachycardia 106 bpm, nondiagnostic. Patient does have normal white blood cell count. Lactic acid is elevated at 2.6. We will send blood cultures. COVID is positive. -- I consulted with on-call critical care, Dr. Farmer, she evaluated the patient at bedside and recommends transfer. [id number] -- I called [facility] transfer center request transfer and [facility] is at capacity and cannot accept. They do note [place] could accept. I called [facility] which is a closer appropriate receiving facility, I spoke with Dr. Oliveira, discussed ED presentation and course, he will accept the patient on behalf of Dr. aMs. Waiting for bed availability. Lab Data Lab results reviewed: Yes I reviewed the patient's lab results. Labs: 04/12/22 15:34 Blood Blood Culture - Pending 04/12/22 15:34 Blood Blood Culture - Pending Laboratory Tests Range/Units 04/12/22 04/12/22 04/12/22 12:25 12:25 12:25 WBC (4.4-10.8) 10^3/uL RBC (4.36-5.78) 10^6/uL Hgb (13.5-17.5) g/dL Hct (40.0-50.0) % MCV (80-95) fL MCH (27.0-33.0) pg MCHC (32.0-36.0) % RDW (11.8-14.1) % Plt Count (130-400) 10^3/uL MPV (8.0-11.0) fL Immature Gran % Neutrophils % Lymphocytes % Monocytes % Eosinophils % Basophils % Nucleated RBC % (0.0-0.3) % Absolute Neutrophils (1.2-6.7) 10^3/uL Absolute Lymphocytes (1.2-3.4) 10^3/uL Absolute Monocytes (0.1-0.8) 10^3/uL Absolute Eosinophils (0.0-0.7) 10^3/uL Absolute Basophils (0.0-0.2) 10^3/uL PT (9.3-11.0) sec 14.5 H INR (0.9-1.1) 1.5 H APTT (21.0-27.5) sec 26.1 VBG pH (7.31-7.41) VBG pCO2 (41-51) mmHg VBG pO2 mmHg VBG HCO3 (23-28) mmol/L VBG Total CO2 (24-29) mmol/L VBG O2 Saturation % VBG Base Excess (-2-3) mmol/L VBG Lactate (0.6-1.4) mmol/L 2.6 H* Sodium (136-145) mmol/L Potassium (3.5-5.1) mmol/L Chloride (98-107) mmol/L Carbon Dioxide (21.0-32.0) mmol/L Anion Gap (3-11) mmol/L BUN (7-18) mg/dL Creatinine (0.70-1.30) mg/dL Est GFR (CKD-EPI 2020) (mL/min/1.73m2) Glucose (74-106) mg/dL Calcium (8.5-10.1) mg/dL Magnesium (1.8-2.4) mg/dL Ferritin (26-388) ng/mL 76 Total Bilirubin (0.2-1.0) mg/dL AST (15-37) U/L ALT (16-63) U/L Alkaline Phosphatase (46-116) U/L Creatine Kinase (39-308) U/L 65 Troponin I Cancelled C-Reactive Protein (0.0-0.3) mg/dL 12.76 H NT-Pro-B Natriuret Pep (<300) pg/mL 34096 H Total Protein (6.4-8.2) g/dL Albumin (3.4-5.0) g/dL Procalcitonin ng/mL 0.5 COVID-19 Source SARS-CoV-2 (PCR) (Negative) Influenza Type A (PCR) (Negative) Influenza Type B (PCR) (Negative) RSV (PCR) (Negative) Range/Units 04/12/22 04/12/22 04/12/22 12:25 12:25 12:25 WBC (4.4-10.8) 10^3/uL 10.51 RBC (4.36-5.78) 10^6/uL 5.96 H Hgb (13.5-17.5) g/dL 16.7 Hct (40.0-50.0) % 54.0 H MCV (80-95) fL 91 MCH (27.0-33.0) pg 28.0 MCHC (32.0-36.0) % 30.9 L RDW (11.8-14.1) % 16.1 H Plt Count (130-400) 10^3/uL 370 MPV (8.0-11.0) fL 9.9 Immature Gran % 1.0 Neutrophils % 76.4 Lymphocytes % 10.0 Monocytes % 12.2 Eosinophils % 0.1 Basophils % 0.3 Nucleated RBC % (0.0-0.3) % 1.1 H Absolute Neutrophils (1.2-6.7) 10^3/uL 8.04 H Absolute Lymphocytes (1.2-3.4) 10^3/uL 1.05 L Absolute Monocytes (0.1-0.8) 10^3/uL 1.28 H Absolute Eosinophils (0.0-0.7) 10^3/uL 0.01 Absolute Basophils (0.0-0.2) 10^3/uL 0.03 PT (9.3-11.0) sec INR (0.9-1.1) APTT (21.0-27.5) sec VBG pH (7.31-7.41) 7.16 L* VBG pCO2 (41-51) mmHg 100 H* VBG pO2 mmHg 56 VBG HCO3 (23-28) mmol/L 36 H VBG Total CO2 (24-29) mmol/L 33 H VBG O2 Saturation % 77 VBG Base Excess (-2-3) mmol/L 7 H VBG Lactate (0.6-1.4) mmol/L Sodium (136-145) mmol/L 138 Potassium (3.5-5.1) mmol/L 5.3 H Chloride (98-107) mmol/L 96 L Carbon Dioxide (21.0-32.0) mmol/L 36.5 H Anion Gap (3-11) mmol/L 5.5 BUN (7-18) mg/dL 50 H Creatinine (0.70-1.30) mg/dL 2.7 H Est GFR (CKD-EPI 2020) (mL/min/1.73m2) 26.16 Glucose (74-106) mg/dL 143 H Calcium (8.5-10.1) mg/dL 9.3 Magnesium (1.8-2.4) mg/dL 2.1 Ferritin (26-388) ng/mL Total Bilirubin (0.2-1.0) mg/dL 1.2 H AST (15-37) U/L 1133 H ALT (16-63) U/L 863 H Alkaline Phosphatase (46-116) U/L 102 Creatine Kinase (39-308) U/L Troponin I 307 H* C-Reactive Protein (0.0-0.3) mg/dL NT-Pro-B Natriuret Pep (<300) pg/mL Total Protein (6.4-8.2) g/dL 7.4 Albumin (3.4-5.0) g/dL 3.5 Procalcitonin ng/mL COVID-19 Source SARS-CoV-2 (PCR) (Negative) Influenza Type A (PCR) (Negative) Influenza Type B (PCR) (Negative) RSV (PCR) (Negative) Range/Units 04/12/22 12:25 WBC (4.4-10.8) 10^3/uL RBC (4.36-5.78) 10^6/uL Hgb (13.5-17.5) g/dL Hct (40.0-50.0) % MCV (80-95) fL MCH (27.0-33.0) pg MCHC (32.0-36.0) % RDW (11.8-14.1) % Plt Count (130-400) 10^3/uL MPV (8.0-11.0) fL Immature Gran % Neutrophils % Lymphocytes % Monocytes % Eosinophils % Basophils % Nucleated RBC % (0.0-0.3) % Absolute Neutrophils (1.2-6.7) 10^3/uL Absolute Lymphocytes (1.2-3.4) 10^3/uL Absolute Monocytes (0.1-0.8) 10^3/uL Absolute Eosinophils (0.0-0.7) 10^3/uL Absolute Basophils (0.0-0.2) 10^3/uL PT (9.3-11.0) sec INR (0.9-1.1) APTT (21.0-27.5) sec VBG pH (7.31-7.41) VBG pCO2 (41-51) mmHg VBG pO2 mmHg VBG HCO3 (23-28) mmol/L VBG Total CO2 (24-29) mmol/L VBG O2 Saturation % VBG Base Excess (-2-3) mmol/L VBG Lactate (0.6-1.4) mmol/L Sodium (136-145) mmol/L Potassium (3.5-5.1) mmol/L Chloride (98-107) mmol/L Carbon Dioxide (21.0-32.0) mmol/L Anion Gap (3-11) mmol/L BUN (7-18) mg/dL Creatinine (0.70-1.30) mg/dL Est GFR (CKD-EPI 2020) (mL/min/1.73m2) Glucose (74-106) mg/dL Calcium (8.5-10.1) mg/dL Magnesium (1.8-2.4) mg/dL Ferritin (26-388) ng/mL Total Bilirubin (0.2-1.0) mg/dL AST (15-37) U/L ALT (16-63) U/L Alkaline Phosphatase (46-116) U/L Creatine Kinase (39-308) U/L Troponin I C-Reactive Protein (0.0-0.3) mg/dL NT-Pro-B Natriuret Pep (<300) pg/mL Total Protein (6.4-8.2) g/dL Albumin (3.4-5.0) g/dL Procalcitonin ng/mL COVID-19 Source Nasopharynx SARS-CoV-2 (PCR) (Negative) Positive A Influenza Type A (PCR) (Negative) Negative Influenza Type B (PCR) (Negative) Negative RSV (PCR) (Negative) Negative HPI General Mode of arrival: EMS. Date/Time Provider Initiated Documentation: 04/12/22 12:05. Limitations to Documentation: altered mental status. Information obtained by: EMS. HPI Narrative: 61-year-old male with multiple medical problems including history of obstructive sleep apnea, COPD, hypertension, diabetes, obesity, bipolar 1, cigarette smoker, here with hypoxia. Patient be hypoxic at psychiatric facility. EMS noted he was saturating in the 60s on arrival and appeared cyanotic. Patient recently positive for COVID. History review of systems limited secondary to altered mental status and acuity of condition. Patient was placed on CPAP rescue device by EMS and saturations have improved. Related Data Home Medications Medication Instructions Recorded Confirmed cholecalciferol (vitamin D3) 25 25 mcg PO DAILY 07/31/20 04/12/22 mcg (1,000 unit) tablet hydrocortisone 1 % topical cream 1 applic topical BID 08/01/20 02/05/22 aripiprazole 5 mg tablet (Abilify) 5 mg PO DAILY 03/13/21 04/12/22 lisinopril 30 mg tablet 30 mg PO DAILY 03/13/21 04/12/22 metformin 750 mg tablet,extended 750 mg PO DAILY 03/13/21 04/12/22 release 24 hr vilazodone 40 mg tablet (Viibryd) 40 mg PO DAILY 03/13/21 04/12/22 ziprasidone HCl 40 mg capsule 40 mg PO QHS 08/29/21 04/12/22 blood sugar diagnostic (Blood 10/23/21 02/05/22 Glucose Test strips) blood-glucose meter 10/23/21 02/05/22 diaper,brief,adult,disposable 10/23/21 02/05/22 (Disposable Brief Jumbo X-Large) lancets (OneTouch UltraSoft 10/23/21 02/05/22 Lancets) nystatin 100,000 unit/gram topical 1 applic topical BID 10/23/21 04/12/22 powder oxygen and supplies 2 liters 10/23/21 02/05/22 simvastatin 20 mg tablet 20 mg PO QHS 10/23/21 04/12/22 albuterol sulfate 90 mcg/actuation 2 puff inhalation Q6H PRN PRN 02/05/22 02/05/22 aerosol inhaler (Ventolin HFA) shortness of breath or wheezing #8.5 grams ipratropium 0.5 mg-albuterol 3 mg 3 ml inhalation Q4H PRN wheezing 02/05/22 02/05/22 (2.5 mg base)/3 mL nebulization #540 mL soln umeclidinium 62.5 mcg/actuation 1 inh inhalation DAILY 02/05/22 04/12/22 blister powder for inhalation (Incruse Ellipta) oxybutynin chloride 15 mg 30 mg PO DAILY #60 tabs 02/06/22 04/12/22 tablet,extended release 24 hr budesonide-formoterol HFA 160 See Rx Instructions .Route .COMPLEX 04/12/22 04/12/22 mcg-4.5 mcg/actuation aerosol inhaler (Symbicort) nirmatrelvir 300 mg (150 mg See Rx Instructions .Route .COMPLEX 04/12/22 04/12/22 x2)-ritonavir 100 mg tablet,dose pack(EUA) (Paxlovid) Previous Rx's Medication Instructions Recorded albuterol sulfate 90 mcg/actuation 2 puff inhalation Q6H PRN PRN 02/05/22 aerosol inhaler (Ventolin HFA) shortness of breath or wheezing #8.5 grams ipratropium 0.5 mg-albuterol 3 mg 3 ml inhalation Q4H PRN wheezing 02/05/22 (2.5 mg base)/3 mL nebulization #540 mL soln oxybutynin chloride 15 mg 30 mg PO DAILY #60 tabs 02/06/22 tablet,extended release 24 hr Allergies Allergy/AdvReac Type Severity Reaction Status Date / Time Penicillins Allergy Severe Anaphylaxis Unverified 02/05/22 13:13 dextromethorphan Allergy Mild Skin Rash Unverified 02/05/22 13:13 [From Dimetapp Cold-Congestion] diphenhydramine Allergy Mild Skin Rash Unverified 02/05/22 13:13 [From Dimetapp Cold-Congestion] guaifenesin Allergy Mild Skin Rash Unverified 02/05/22 13:13 [From Dimetapp Cold-Congestion] phenylephrine Allergy Mild Skin Rash Unverified 02/05/22 13:13 [From Dimetapp Cold-Congestion] pseudoephedrine Allergy Mild Skin Rash Unverified 02/05/22 13:13 [From Dimetapp Cold-Congestion] bupropion [From Wellbutrin] AdvReac Intermediate Other (See Unverified 02/05/22 13:13 Comment) General Stated Complaint: SOB SANTA: 3 Review of Systems Unobtainable due to mental status PFSH All Active Problems (Updated 04/12/22 @ 15:41 by Maxi Shepherd MD) COVID-19 (Acute) MICHAEL (acute kidney injury) (Acute) Elevated troponin (Acute) Acute respiratory failure with hypoxia and hypercapnia (Acute) CHF (congestive heart failure) (Chronic) Altered mental status (Acute) Septic shock (Acute) Right bundle branch block (Acute) Elevated troponin (Acute) Elevated LFTs (Acute) MICHAEL (acute kidney injury) (Acute) Hyperkalemia (Acute) Lactic acidosis (Acute) COVID (Acute) Respiratory failure with hypoxia and hypercapnia (Acute) Nicotine dependence, cigarettes, uncomplicated (Acute) Respiratory failure with hypoxia (Acute) Hypoxemia (Acute) Sleep apnea (Acute) Depression (Chronic) Tobacco dependence (Acute) Supplemental oxygen dependent (Acute) Bipolar 1 disorder (Acute) Obesity (Chronic) Incontinence of urine (Acute) Diabetes (Chronic) Discharge planning issues (Acute) DVT prophylaxis (Acute) HTN (hypertension) (Chronic) Obstructive sleep apnea (Chronic) COPD (chronic obstructive pulmonary disease) (Chronic) Suicidal ideations (Acute) Hallucinations (Acute) Hypertension (Chronic) Medical History Hyperlipidemia Obesity (BMI 30-39.9) Palliative care patient Schizophrenia Family History Other Adopted Social History Smoking/Tobacco Use Status: Current every day Tobacco Type: cigarettes Smoking risk assessment performed?: Yes Alcohol Intake: former Drug use: Never Substance use type: does not use Caregiver/Support person: No Household members: none Housing: homeless Number of Children: 0 Communication Needs: Hard of Hearing and Corrective Lenses Education Level: high school Do you need help understanding health information?: Always current occupation: disabled due to mental illness Pets and animals: No Current gender identity: male What is your relationship status?: never How often do you talk on the phone with friends or family?: never How often do you get together with friends or relatives?: never Panel score (0-1 are the most socially isolated patients): 0 What type of physical activity do you participate in: none and sedentary lifestyle Frequency: does not exercise Special mannie needs: No Seatbelt use: always Do you feel safe at home: Yes (hallucinating re dying) Do you feel safe in your relationship?: Yes Additional Social history: Nathan presents with his [facility] worker, Marko King. Nathan is homeless, currently housed at [facility]. He has been asked to leave, partly as his housing was paid for through [employer] grants that have come to an end, and partly due to his chronic urinary incontinence. He has ruined more than one mattress since living at the [facility]. He used to live in [place], [place] with his mother. He says I'm not allowed to speak to her. Marko and other [facility] staff are trying to find Nathan placement. He lived briefly at the [facility] before being transferred to the [facility]. Most of his health problems are psychiatric in nature, including his poor self care. We were able to get him an appointment with Hina Hadley NP at [facility] for the day after my visit with Nathan. Exam Const General: not healthy appearing and in distress respiratory Nutritional Appearance: obese Orientation: obtunded [facility] General nose exam: nasal discharge Mouth: moist mucous membranes Eyes Sclera: normal sclerae Neck Neck: trachea midline and supple Resp Effort & Inspection: labored, respiratory distress and tachypneic Auscultation: rales bilaterally Cardio Rate: regular rate and not tachycardic Rhythm: regular rhythm GI Palpation: soft, not firm, no guarding, no masses, not rigid and nontender Skin General skin exam: no rashes or lesions noted Neuro General: patient awake Cognition: abnormal cognition Extrem General: no edema Psych Appearance: disheveled Course Vital Signs Vital signs: Vital Signs Temperature 36.7 C 04/12/22 11:30 Pulse 100 H 04/12/22 11:30 Respiratory Rate 21 04/12/22 11:30 Blood Pressure 144/95 H 04/12/22 11:30 Pulse Oximetry 99 04/12/22 11:30 Temperature 36.7 C 04/12/22 11:30 Temperature Source Axillary 04/12/22 11:30 Pulse 114 H 04/12/22 12:28 Respiratory Rate 21 04/12/22 12:28 Respiratory Effort Labored 04/12/22 11:42 Respiratory Depth Normal 04/12/22 11:42 Respiratory Pattern Normal 04/12/22 11:42 Blood Pressure 144/95 H 04/12/22 11:30 Blood Pressure Position Sitting 04/12/22 11:30 Pulse Oximetry 93 04/12/22 12:28 Oxygen Delivery Method Rescue 2 Compact CPAP 04/12/22 12:28 Oxygen Flow Rate 5 04/12/22 12:28 Lab/Test Results Lab/Test Results: Laboratory Tests Range/Units 04/12/22 04/12/22 12:25 12:25 VBG pH (7.31-7.41) 7.16 L* VBG pCO2 (41-51) mmHg 100 H* VBG pO2 mmHg 56 VBG HCO3 (23-28) mmol/L 36 H VBG Total CO2 (24-29) mmol/L 33 H VBG O2 Saturation % 77 VBG Base Excess (-2-3) mmol/L 7 H VBG Lactate (0.6-1.4) mmol/L 2.6 H* Procedures Intubation Time out performed: Yes sedative: Ketamine Mg Given: 235 paralytic: Rocuronium Mg Given: 115 Laryngoscope: fiberoptic video scope ET Tube Size: 7.5 ET Tube Uncuffed: No Tube Secured Depth (cm): 25 Tube Secured Location: lips Tube Placement Confirmation: visualized tube passing through cords, equal breath sounds bilaterally, no breath sounds over epigastrum and confirmation by capnometry Patient Tolerated Procedure: well Intubation Complications: none Additional Comments: Significant secretions noted in airway Critical Care Time Critical Care Time Critical Care Time: Yes Total Critical Care Time: 120 Attestation: I spent greater than 120 minutes addressing this patient's immediate life threats. Please see MDM section of note. This time was spent engaged in work directly related to the patient's care, exclusive of separate procedures, and failure to initiate these interventions would have likely resulted in clinically significant or life threatening deterioration in the patient's condition.
[2022-04-12] MEDS: Dexamethasone 10 MG/ML VIAL 6 MG IVP (12:51)
[2022-04-12 12:53] LABS: INR 1.5 (0.9-1.1); PTT Activated 26.1 sec (21.0-27.5); Prothrombin Time 14.5 sec (9.3-11.0)
[2022-04-12] MEDS: REMDESIVIR 200 MG in Normal Saline 250 ML 250 MG IVPB (13:00)
[2022-04-12 13:10] LABS: ALT 863 U/L (16-63); Albumin 3.5 g/dL (3.4-5.0); Alkaline Phosphatase 102 U/L (46-116); Anion Gap 5.5 mmol/L (3-11); BUN 50 mg/dL (7-18); Bilirubin, Total 1.2 mg/dL (0.2-1.0); CO2 36.5 mmol/L (21.0-32.0); CREATININE 2.7 mg/dL (0.70-1.30); Calcium 9.3 mg/dL (8.5-10.1); Chloride 96 mmol/L (98-107); Estimated GFR 26.16 (mL/min/1.73m2); Glucose 143 mg/dL (74-106); Magnesium 2.1 mg/dL (1.8-2.4); Potassium 5.3 mmol/L (3.5-5.1); Sodium 138 mmol/L (136-145); Total Protein 7.4 g/dL (6.4-8.2)
[2022-04-12 13:11] LABS: AST 1133 U/L (15-37)
[2022-04-12 13:14] LABS: Troponin I 307 ng/L (<or=60)
[2022-04-12 13:18] LABS: Ferritin 76 ng/mL (26-388)
[2022-04-12 13:22] LABS: Influenza A PCR Negative (Negative); Influenza B PCR Negative (Negative); RSV PCR Negative (Negative)
[2022-04-12 13:24] LABS: COVID-19 PCR Positive (Negative); Source Nasopharynx
[2022-04-12 13:39] LABS: C-Reactive Protein 12.76 mg/dL (0.0-0.3); Creatine Kinase 65 U/L (39-308); NT-proBNP 10021 pg/mL (<300)
[2022-04-12 13:41] LABS: Procalcitonin 0.5 ng/mL
--- NOTE | 2022-04-12 14:30 | DI.RAD_ITS ---
Exam(s) XR PORTABLE CHEST AP EXAM: XR PORTABLE CHEST AP CLINICAL HISTORY: covid, post intubation TECHNIQUE: 2D digital imaging was performed of the chest. Images were obtained. PA and lateral v iews were obtained. COMPARISON: CR XR PORTABLE CHEST AP from 04/12/2022 FINDINGS: MEDIASTINUM: Normal. HEART: Normal. PULMONARY VASCULATURE: Normal. LUNGS: There has been interval development of a large left pulmonary infiltrate. There is a persiste nt small infiltrate in the right lung base. PLEURAL SPACE: No pleural effusion or pneumothorax. BONE:Within normal limits for the patient's age. OTHER FINDINGS:The tip of the endotracheal tube is 3.8 cm above the felipa. IMPRESSION: 1. Increased opacity in the left lung. This may represent pulmonary edema or atelectasis. Underlyin g infiltrate was suspected. There is a persistent small right basilar infiltrate. 2. Tip of the endotracheal tube is 3.8 cm above the felipa. DATA REPOSITORY: RADIATION DOSE DELIVERED:
--- NOTE | 2022-04-12 14:34 | W.PULMCC ---
General Date of Service Date of service: 04/12/22 Time of Service: 14:34 Reason for Admission to ICU: COVID Respiratory failure Assessment and Plan Assessment and plan (1) Respiratory failure with hypoxia and hypercapnia: Status: Acute (2) Nicotine dependence, cigarettes, uncomplicated: Status: Acute (3) Bipolar 1 disorder: Status: Acute (4) Altered mental status: Status: Acute (5) Obesity: Status: Chronic (6) COVID: Status: Acute (7) Lactic acidosis: Status: Acute (8) Hyperkalemia: Status: Acute (9) MICHAEL (acute kidney injury): Status: Acute (10) Elevated LFTs: Status: Acute (11) Elevated troponin: Status: Acute (12) Right bundle branch block: Status: Acute (13) Pneumonia: Status: Resolved (14) Septic shock: Status: Acute Assessment and plan: This is a 61 yo man with bipolar, COPD and metabolic syndrome who is intubated for COVID pneumonia that has worsened since 04/08/22. He is hypotensive, hypoxic and hypercapnic with multiorgan failure (MICHAEL, transaminitis, AMS). He has considerable mucus plugging based on Ed provider intubation experience as well as rapidly progressing CXR infiltrates. It seems plausible that he has a bacterial suprainfection in addition to COVID and would recommend Zosyn prior to transfer. He is critically ill and too sick to be cared for at our critical access hospital. Discussed with [facility] transfer center and either [facility] or [facility] will be able to accommodate this transfer. For the hypotension I would favor levophed for a MAP of 65 or greater with continuing propofol for sedation over using a sedative such as Versed. He has a satisfactory AC PIV that can accommodate him until transfer and central line placement. I would recommend against further IVF after his initial resuscitation. Recommendations Pulmonary: Hypoxic and hypercapnic respiratory failure - failure of BiPAP - s/p intubation - no ability for APRV on our vents - VCAC PEEP 10, recommend TV 6-8cc/kg - requiring 100% FiO2 with sats high 80's - recommend q4hr nebs - consider chest CT once stabilized +/- PE study COPD - on Symbicort 80, Incruse, nebs and prn albuterol at home - FEV1 37% in 2020 - 2LPM O2 baseline requirement - O2 target 88-92% Cardiac: Elevated troponin - likely type II in etiology - hypoxia and hypotension - trend to peak - consider echo/cardiac POCUS once stabilized RBBB - chronically present Septic Shock - recommend 30cc/kg resuscitation - recommend levophed infusion for MAP >65mmHg - getting steroids for COVID treatment - will likely need diuresis once stabilized given bnp Renal: MICHAEL - s/p IVF resuscitation - monitor I/O - recommend Kaplan placement - likely pre-renal +/- ATN from hypoxia - recommend UA +/- renal US if not improving I&O: Intake & Output 04/09/22 04/10/22 04/11/22 04/12/22 23:59 23:59 23:59 23:59 Weight 117 kg GI Nutrition: Elevated LFT's - likely hypoxia related - recommend tyelenol level and Utox given large jump - once stabilized should be screened for hepatitis - continue to monitor Infectious Disease: COVID Pneumonia, possible bacterial suprainfection - recommend Decadron and barcitinib - would recommend antibiotics with at least Zosyn - recommend blood cultures Hematologic: No acute concerns Neurologic: AMS - due to hypoxia and hypercapnea - baseline bipolar disorder and institutionalized - at baseline, he is able to converse and answer questions appropriately Endocrine: no acute concerns Lines: PIV Code Status: Prior hospitalizations patient has been Full Code Subjective Critical and life-threatening events over the past 24 hours: This is a 61 yo man who I have seen once in clinic for oxygen dependant COPD (2LPM continuous) who presented to the ED via EMS for respiratory failure. He tested positive for COVID 04/08/22. Aside from COPD (FEV1% 31 in 2020) he has a medical history of untreated JEREMIAS, smoking (4 cig/day), metabolic syndrome, bipolar type 1. He lives at a the medical center facility and was found to be hypoxic, which prompted EMS call. He was somnolent but arousable and was placed on BiPAP 18/8 upon ED arrival. His initial VBG was 7.16/100. His lactate was 2.6. He also has a significant MICHAEL with creatinine 2.7 (baseline 0.9). He has a significant elevation in his LFT's. His inflammatory markers are also significantly elevated. His bnp baseline is 500 [place] [address]. CXR is significant for increased interstital markings, with engorged pulmonary vasculature and some alveolar infiltrates. Despite BiPAP the patient became obtunded and was intubated. On my assessment he is hypotensive, saturating 87% on FiO2 100, PEEP 8, peak insp pressure 30, mean airway pressure 14. CXR after intubation find appropriate location of the tube with now a significantly worsened infiltrative appearance in the left lung. Per ED provider, his intubation was significant for copious secretions throughout his view. Exam Narrative Exam Narrative: Gen: intubated on mechanical ventilator, obese HENT: PERRL Chest: deferred due to COVID Heart:deferred due to COVID Abdomen: Non-distended, soft, non tender Extremities: No clubbing, edema, cyanosis, rashes, warm and well perfused Neuro: intubated and sedated Psych: intubated and sedated Most Recent VS/Results Last Vital Signs Temp 36.7 C 04/12/22 11:30 Pulse 88 04/12/22 13:16 Resp 19 04/12/22 13:20 BP 98/66 L 04/12/22 13:16 Pulse Ox 87 L 04/12/22 13:20 Laboratory Results - last 24 hr 04/12/22 04/12/22 04/12/22 12:25 12:25 12:25 WBC RBC Hgb Hct MCV MCH MCHC RDW Plt Count MPV Immature Gran % Neutrophils % Lymphocytes % Monocytes % Eosinophils % Basophils % Nucleated RBC % Absolute Neutrophils Absolute Lymphocytes Absolute Monocytes Absolute Eosinophils Absolute Basophils PT 14.5 H INR 1.5 H APTT 26.1 VBG pH VBG pCO2 VBG pO2 VBG HCO3 VBG Total CO2 VBG O2 Saturation VBG Base Excess VBG Lactate 2.6 H* Sodium Potassium Chloride Carbon Dioxide Anion Gap BUN Creatinine Est GFR (CKD-EPI 2020) Glucose Calcium Magnesium Ferritin 76 Total Bilirubin AST ALT Alkaline Phosphatase Creatine Kinase 65 Troponin I Cancelled C-Reactive Protein 12.76 H NT-Pro-B Natriuret Pep 31292 H Total Protein Albumin Procalcitonin 0.5 COVID-19 Source SARS-CoV-2 (PCR) Influenza Type A (PCR) Influenza Type B (PCR) RSV (PCR) 04/12/22 04/12/22 04/12/22 12:25 12:25 12:25 WBC 10.51 RBC 5.96 H Hgb 16.7 Hct 54.0 H MCV 91 MCH 28.0 MCHC 30.9 L RDW 16.1 H Plt Count 370 MPV 9.9 Immature Gran % 1.0 Neutrophils % 76.4 Lymphocytes % 10.0 Monocytes % 12.2 Eosinophils % 0.1 Basophils % 0.3 Nucleated RBC % 1.1 H Absolute Neutrophils 8.04 H Absolute Lymphocytes 1.05 L Absolute Monocytes 1.28 H Absolute Eosinophils 0.01 Absolute Basophils 0.03 PT INR APTT VBG pH 7.16 L* VBG pCO2 100 H* VBG pO2 56 VBG HCO3 36 H VBG Total CO2 33 H VBG O2 Saturation 77 VBG Base Excess 7 H VBG Lactate Sodium 138 Potassium 5.3 H Chloride 96 L Carbon Dioxide 36.5 H Anion Gap 5.5 BUN 50 H Creatinine 2.7 H Est GFR (CKD-EPI 2020) 26.16 Glucose 143 H Calcium 9.3 Magnesium 2.1 Ferritin Total Bilirubin 1.2 H AST 1133 H ALT 863 H Alkaline Phosphatase 102 Creatine Kinase Troponin I 307 H* C-Reactive Protein NT-Pro-B Natriuret Pep Total Protein 7.4 Albumin 3.5 Procalcitonin COVID-19 Source SARS-CoV-2 (PCR) Influenza Type A (PCR) Influenza Type B (PCR) RSV (PCR) 04/12/22 12:25 WBC RBC Hgb Hct MCV MCH MCHC RDW Plt Count MPV Immature Gran % Neutrophils % Lymphocytes % Monocytes % Eosinophils % Basophils % Nucleated RBC % Absolute Neutrophils Absolute Lymphocytes Absolute Monocytes Absolute Eosinophils Absolute Basophils PT INR APTT VBG pH VBG pCO2 VBG pO2 VBG HCO3 VBG Total CO2 VBG O2 Saturation VBG Base Excess VBG Lactate Sodium Potassium Chloride Carbon Dioxide Anion Gap BUN Creatinine Est GFR (CKD-EPI 2020) Glucose Calcium Magnesium Ferritin Total Bilirubin AST ALT Alkaline Phosphatase Creatine Kinase Troponin I C-Reactive Protein NT-Pro-B Natriuret Pep Total Protein Albumin Procalcitonin COVID-19 Source Nasopharynx SARS-CoV-2 (PCR) Positive A Influenza Type A (PCR) Negative Influenza Type B (PCR) Negative RSV (PCR) Negative Review of Systems Unobtainable due to endotracheal tube and Unobtainable due to mental status Time spent with patient Time spent in Critical Care: 70 Time spent in Critical care included: Coordination of care, Chart review, Documenting critically ill care, Time at immediate bedside and Discussing critically ill care with other medical staff
[2022-04-12] MEDS: PROPOFOL 1,000 MG/100 ML BTL 2.8 MG (14:54)
[2022-04-12] MEDS: AZITHROMYCIN 500 MG in Normal Saline 250 ML 250 MG IVPB (15:57)
== END 2022-04-12 17:54 | disposition short-term general hospital (02) ==
PROVIDERS: Emergency Provider Student in an Organized Health Care Education/Training Program; PCP Nurse Practitioner Family
DX: U07.1 COVID-19 (principal); N17.9 Acute kidney failure, unspecified; R77.8 Other specified abnormalities of plasma proteins; I11.0 Hypertensive heart disease with heart failure; I50.9 Heart failure, unspecified; J96.01 Acute respiratory failure with hypoxia; J96.02 Acute respiratory failure with hypercapnia; J44.9 Chronic obstructive pulmonary disease, unspecified; R79.89 Other specified abnormal findings of blood chemistry; F31.9 Bipolar disorder, unspecified; E11.9 Type 2 diabetes mellitus without complications; Z79.84 Long term (current) use of oral hypoglycemic drugs; Z79.51 Long term (current) use of inhaled steroids; Z86.16 Personal history of COVID-19
CPT/HCPCS: 31500; 80053; 82550; 82805; 84145; 87040; 87637; 93005; 99291; 99292; 71045; 82728; 83605; 83615; 83735; 83880; 84484; 85025; 85610; 85730; 86140; 93010; 94640; J0248; J0456; J1100; J7620

== ENCOUNTER 2022-04-23 12:48 | Inpatient (IN) | payer MEDICARE, MEDICAID, SELFPAY ==
[2022-04-23] VITALS (7 sets, daily range): BP systolic 136–158; BP diastolic 91–96; PULSE 75–96; RESP 1–18; TEMP 36.8–37.4; O2SAT 89–95
--- NOTE | 2022-04-23 18:36 | HPE_ITS ---
Date of service: 04/23/22 Time of Service: 18:36 Assessment and Plan Assessment and plan (1) Acute respiratory failure with hypoxia and hypercapnia: Status: Acute Assessment and plan: S/P respiratory failure due to combination of COPD, pneumonia and COVID, and presumed but undiagnosed JEREMIAS. Now appears to be back to baseline. Respiratory: prn updrafts, consider sleep study COVID: as above unable to complete primary course of treatment. No overt ill effects now 12 days out. DM: not on any meds. Will monitor on diet. Bipolar: Continue usual meds HTN: Continue usual meds. Remains Full Code History of Present Illness History of Present Illness Chief Complaint: SOB Narrative: 61 male with h/o COPD. on home O2 2L, JEREMIAS, bipolar, DM, HTN, HLD -- transferred to [facility] from [facility] 10 days [facility] [facility] for respiratory failure in setting of pneumonia, COVID and COPD requiring intubation. 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 S/P 7 days of Rocephin and 2 days of Zithromax. Received Remdesivir for one day for COVID but was stopped secondary to elevated LFTs; also received one day of Dexa. Blood cultures were negative. Patient did exhibit a degree of confusion but did not require medication. He is transferred back to [facility] for ongoing care. At present time patient without complaints and states his breathing feels back to baseline. Review of Systems Narrative: per [facility] All Active Problems COVID-19 (Acute) MICHAEL (acute kidney injury) (Acute) Elevated troponin (Acute) Acute respiratory failure with hypoxia and hypercapnia (Acute) CHF (congestive heart failure) (Chronic) Altered mental status (Acute) Septic shock (Acute) Right bundle branch block (Acute) Elevated troponin (Acute) Elevated LFTs (Acute) MICHAEL (acute kidney injury) (Acute) Hyperkalemia (Acute) Lactic acidosis (Acute) COVID (Acute) Respiratory failure with hypoxia and hypercapnia (Acute) Nicotine dependence, cigarettes, uncomplicated (Acute) Respiratory failure with hypoxia (Acute) Hypoxemia (Acute) Sleep apnea (Acute) Depression (Chronic) Tobacco dependence (Acute) Supplemental oxygen dependent (Acute) Bipolar 1 disorder (Acute) Obesity (Chronic) Incontinence of urine (Acute) Diabetes (Chronic) Discharge planning issues (Acute) DVT prophylaxis (Acute) HTN (hypertension) (Chronic) Obstructive sleep apnea (Chronic) COPD (chronic obstructive pulmonary disease) (Chronic) Suicidal ideations (Acute) Hallucinations (Acute) Hypertension (Chronic) Medical History Hyperlipidemia Obesity (BMI 30-39.9) Palliative care patient Schizophrenia Family History Other Adopted Social History Smoking/Tobacco Use Status: Current every day Tobacco Type: cigarettes Smoking packs per day: 0 Smoking cigarettes per day: 0.0 Years smoked: 30 Smoking pack- years: 0.00 Tobacco: How many years used: 30 Smoking risk assessment performed?: Yes Alcohol Intake: former Drug use: Never Substance use type: does not use Caregiver/Support person: No Household members: none Housing: homeless Number of Children: 0 Communication Needs: Hard of Hearing and Corrective Lenses Education Level: high school Do you need help understanding health information?: Always current occupation: disabled due to mental illness Pets and animals: No Current gender identity: male What is your relationship status?: never How often do you talk on the phone with friends or family?: never How often do you get together with friends or relatives?: never Panel score (0-1 are the most socially isolated patients): 0 What type of physical activity do you participate in: none and sedentary lifestyle Frequency: does not exercise Special mannie needs: No Seatbelt use: always Do you feel safe at home: Yes (hallucinating re dying) Do you feel safe in your relationship?: Yes Additional Social history: Nathan presents with his [facility] worker, Marko King. Nathan is homeless, currently housed at [facility]. He has been asked to leave, partly as his housing was paid for through [employer] grants that have come to an end, and partly due to his chronic urinary incontinence. He has ruined more than one mattress since living at the [facility]. He used to live in [place], [place] with his mother. He says I'm not allowed to speak to her. Marko and other [facility] staff are trying to find Nathan placement. He lived briefly at the [facility] before being transferred to the [facility]. Most of his health problems are psychiatric in nature, including his poor self care. We were able to get him an appointment with Hina Hadley NP at [facility] for the day after my visit with Nathan. Meds Allergies and Home Medications Allergies Allergy/AdvReac Type Severity Reaction Status Date / Time Penicillins Allergy Severe Anaphylaxis Unverified 02/05/22 13:13 dextromethorphan Allergy Mild Skin Rash Unverified 02/05/22 13:13 [From Dimetapp Cold-Congestion] diphenhydramine Allergy Mild Skin Rash Unverified 02/05/22 13:13 [From Dimetapp Cold-Congestion] guaifenesin Allergy Mild Skin Rash Unverified 02/05/22 13:13 [From Dimetapp Cold-Congestion] phenylephrine Allergy Mild Skin Rash Unverified 02/05/22 13:13 [From Dimetapp Cold-Congestion] pseudoephedrine Allergy Mild Skin Rash Unverified 02/05/22 13:13 [From Dimetapp Cold-Congestion] bupropion [From Wellbutrin] AdvReac Intermediate Other (See Unverified 02/05/22 13:13 Comment) Home Medications Medication Instructions Recorded Confirmed Type cholecalciferol (vitamin D3) 25 25 mcg PO DAILY 07/31/20 04/12/22 History mcg (1,000 unit) tablet hydrocortisone 1 % topical cream 1 applic topical BID 08/01/20 02/05/22 History aripiprazole 5 mg tablet (Abilify) 5 mg PO DAILY 03/13/21 04/12/22 History lisinopril 30 mg tablet 30 mg PO DAILY 03/13/21 04/12/22 History metformin 750 mg tablet,extended 750 mg PO DAILY 03/13/21 04/12/22 History release 24 hr vilazodone 40 mg tablet (Viibryd) 40 mg PO DAILY 03/13/21 04/12/22 History ziprasidone HCl 40 mg capsule 40 mg PO QHS 08/29/21 04/12/22 History blood sugar diagnostic (Blood 10/23/21 02/05/22 History Glucose Test strips) blood-glucose meter 10/23/21 02/05/22 History diaper,brief,adult,disposable 10/23/21 02/05/22 History (Disposable Brief Jumbo X-Large) lancets (OneTouch UltraSoft 10/23/21 02/05/22 History Lancets) nystatin 100,000 unit/gram topical 1 applic topical BID 10/23/21 04/12/22 History powder oxygen and supplies 2 liters 10/23/21 02/05/22 History simvastatin 20 mg tablet 20 mg PO QHS 10/23/21 04/12/22 History albuterol sulfate 90 mcg/actuation 2 puff inhalation Q6H PRN PRN 02/05/22 02/05/22 Rx aerosol inhaler (Ventolin HFA) shortness of breath or wheezing #8.5 grams ipratropium 0.5 mg-albuterol 3 mg 3 ml inhalation Q4H PRN wheezing 02/05/22 02/05/22 Rx (2.5 mg base)/3 mL nebulization #540 mL soln umeclidinium 62.5 mcg/actuation 1 inh inhalation DAILY 02/05/22 04/12/22 History blister powder for inhalation (Incruse Ellipta) oxybutynin chloride 15 mg 30 mg PO DAILY #60 tabs 02/06/22 04/12/22 Rx tablet,extended release 24 hr budesonide-formoterol HFA 160 See Rx Instructions .Route .COMPLEX 04/12/22 04/12/22 History mcg-4.5 mcg/actuation aerosol inhaler (Symbicort) nirmatrelvir 300 mg (150 mg See Rx Instructions .Route .COMPLEX 04/12/22 04/12/22 History x2)-ritonavir 100 mg tablet,dose pack(EUA) (Paxlovid) Exam Narrative Exam Narrative: Sitting at side of bed eating custard. 156/96, 75, 36.8, 16, 91% 2L NC. HEENT atraumatic; neck supple; lungs clear; heart RRR; abdomen soft and NT; extre mities trace pedal edema; neuro flat affect, Ox3 (almost, states it is Apr 29, 2022), knows President; moves all 4s Results Last Vital Signs Temp 36.8 C 04/23/22 18:22 Pulse 75 04/23/22 18:22 Resp 16 04/23/22 18:22 BP 156/96 H 04/23/22 18:22 Pulse Ox 91 L 04/23/22 18:22 Time Spent Time spent with Patient: <40 minutes Time was spent: preparing to see the patient(eg.review tests), obtaining and/or reviewing separately otained hiistory and referring, communicating with other health resident caregiver
[2022-04-23] MEDS: Albuterol/Ipratropium 3 ML UPD VIAL UPD (19:36)
[2022-04-23] MEDS: Heparin 5,000 UNITS/ML VIAL 5000 UNITS SC (19:42)
[2022-04-23] MEDS: Albuterol 2.5 MG/3 ML INH SOLN VIAL UPD (22:17)
[2022-04-24] VITALS (8 sets, daily range): BP systolic 124–125; BP diastolic 77–80; PULSE 69–98; RESP 1–18; TEMP 36.2–36.7; O2SAT 85–93
[2022-04-24] MEDS: Heparin 5,000 UNITS/ML VIAL 5000 UNITS SC ×3 (03:05→18:02)
[2022-04-24 06:16] LABS: Abs Immature Grans 0.02 10^3/uL (0.0-0.06); Absolute Basophil Count 0.04 10^3/uL (0.0-0.2); Absolute Lymphocyte Count 1.45 10^3/uL (1.2-3.4); Absolute Monocyte Count 0.75 10^3/uL (0.1-0.8); Absolute Neutrophil Count 4.46 10^3/uL (1.2-6.7); Basophils % 0.6; Eosinophils % 1.5; HCT 50.7 % (40.0-50.0); HGB 15.6 g/dL (13.5-17.5); Immature Grans % 0.3; Lymphocytes % 21.3; MCH 27.8 pg (27.0-33.0); MCHC 30.8 % (32.0-36.0); MCV 90 fL (80-95); Neutrophils % 65.3; Platelet Count 230 10^3/uL (130-400); RBC 5.62 10^6/uL (4.36-5.78); RDW 15.8 % (11.8-14.1); WBC 6.82 10^3/uL (4.4-10.8)
[2022-04-24 06:29] LABS: ALT 70 U/L (16-63); AST 29 U/L (15-37)
[2022-04-24 06:32] LABS: ALT 72 U/L (16-63); AST 31 U/L (15-37); Albumin 2.7 g/dL (3.4-5.0); Alkaline Phosphatase 76 U/L (46-116); Anion Gap 1.5 mmol/L (3-11); BUN 15 mg/dL (7-18); Bilirubin, Total 0.4 mg/dL (0.2-1.0); CO2 39.5 mmol/L (21.0-32.0); CREATININE 0.7 mg/dL (0.70-1.30); Calcium 9.1 mg/dL (8.5-10.1); Chloride 105 mmol/L (98-107); Estimated GFR 105.49 (mL/min/1.73m2); Glucose 123 mg/dL (74-106); Potassium 4.4 mmol/L (3.5-5.1); Sodium 146 mmol/L (136-145); Total Protein 6.4 g/dL (6.4-8.2)
[2022-04-24] MEDS: Aspirin 81 MG CHEW PO (08:00)
[2022-04-24] MEDS: Albuterol/Ipratropium 3 ML UPD VIAL UPD ×3 (08:28→19:39)
[2022-04-24] MEDS: ARIPiprazole 5 MG TAB PO (08:31)
--- NOTE | 2022-04-24 09:24 | OTIE_ITS ---
Occupational Therapy Notes Inpatient Occupational Therapy Evaluation Date: 04/24/22 Referring Doctor:Dr. Farmer OT Orders: Non Urgent Precautions: Fall, standard, full PATIENT PROFILE/ADMITTING DIAGNOSIS: Pt is a 61 year old male who was a direct transfer from [facility] for the following dx of acute/chronic respiratory failure, PNA, COPD. Past Medical History: All Active Problems? COVID-19 (Acute) MICHAEL (acute kidney injury) (Acute) Elevated troponin (Acute) Acute respiratory failure with hypoxia and hypercapnia (Acute) CHF (congestive heart failure) (Chronic) Altered mental status (Acute) Septic shock (Acute) Right bundle branch block (Acute) Elevated troponin (Acute) Elevated LFTs (Acute) MICHAEL (acute kidney injury) (Acute) Hyperkalemia (Acute) Lactic acidosis (Acute) COVID (Acute) Respiratory failure with hypoxia and hypercapnia (Acute) Nicotine dependence, cigarettes, uncomplicated (Acute) Respiratory failure with hypoxia (Acute) Hypoxemia (Acute) Sleep apnea (Acute) Depression (Chronic) Tobacco dependence (Acute) Supplemental oxygen dependent (Acute) Bipolar 1 disorder (Acute) Obesity (Chronic) Incontinence of urine (Acute) Diabetes (Chronic) Discharge planning issues (Acute) DVT prophylaxis (Acute) HTN (hypertension) (Chronic) Obstructive sleep apnea (Chronic) COPD (chronic obstructive pulmonary disease) (Chronic) Suicidal ideations (Acute) Hallucinations (Acute) Hypertension (Chronic) Medical History? Hyperlipidemia Obesity (BMI 30-39.9) Palliative care patient Schizophrenia Social History/Home Situation: Pt states that he lives at [facility]. He reports that he needs (A) with his ADLs and that he is not able to be fully (I). Per pt report he requires (A) with LE dressing, some bathing and occasionally UE dressing. He states that he is (I) with his toileting routines and eating. He does note that he has difficulty chewing and swallowing at times and denies that he is currently seeing [facility]. Equipment owned/DME: Pt reports that all of his DME needs are met. SUBJECTIVE: Pt states that he is doing okay. He is agreeable to consult today. OBJECTIVE: General Observation: Pleasant, IV in (R) UE Mental Status: A&Ox3 ROM: RUE AROM WFL L UE AROM WFL STRENGTH: RUE 3/5 throughout LUE 2+/5 throughout FUNCTIONAL MOBILITY/ADLS: BATHING seated in chair Bathing UE (I) face and (B) UE with min vc Bathing LE pt denies DRESSING seated in chair OT and pt discuss performance of LE dressing which he reports that he is (I) with. He demonstrated with good technique but required vc. BALANCE: Static sitting Normal Dynamic Sitting Good INFORMED CONSENT/EDUCATION: Pt instructed in purpose of OT Consult and plan of care. ASSESSMENT: Patient is a 61-year-old male referred to occupational therapy services with diagnosis of dx. Patient presents with clinical signs and symptoms consistent with acute/chronic respiratory failure, PNA, COPD, as demonstrated by the following impairment level findings/ functional limitations: Impairments in ADL/IADL and leisure activities, decreased strength, decreased functional activity tolerance, decreased LE dressing, pt states that he requires (A) at his baseline level of function. Patient is assessed as a Moderate 46699 complexity based on the following: History: see above Examination: see functional limitations as noted above Presentation: evolving Decision Making: Moderate complexity GOALS Goals x1 week 1. Transfers (I) 2. Dressing seated (I) 3. Bathing (I) 4. Toileting (I) 5. Eating (I) PLAN OF CARE/TREATMENT PLAN: 1x/day, 5 days/ week x 1week Initiate Occupational Therapy Services for bathing, dressing, grooming, toileting, eating, transfer training. *Pt states that he has issues with chewing and swallowing, OT recommends [facility] consult to rule this out. No obvious issue when OT was present in the room. DISCHARGE RECOMMENDATIONS Return to [facility] with (A) as provided prior for his ADL/IADL routines. TREATMENT TIME/MINUTES/CODES [id number], [id number], 20 minutes Mary Lomeli OTR/[facility]
--- NOTE | 2022-04-24 10:05 | IN_ITS ---
Date of service: 04/24/22 Time of Service: 10:05 PT Notes Visit Reasons: Acute/Chronic Respiratory Failure,PNA,COPD Physical Therapy Inpatient Initial Evaluation Date: 04/24/2022 Referring Doctor: Omar Farmer MD PT Orders: PT CONSULT: Eval/Treat Precautions: Fall. Standard. Activity as tolerated. On 2L of oxygen via NC. Patient Profile/Admitting Diagnosis: Maxi is a 61-year-old male on palliative care admitted for continued management of acute respiratory failure with hypoxia and hypercapnia from COPD, pneumonia, and COVID-19 infection. PMHX: All Active Problems? COVID-19 (Acute) MICHAEL (acute kidney injury) (Acute) Elevated troponin (Acute) Acute respiratory failure with hypoxia and hypercapnia (Acute) CHF (congestive heart failure) (Chronic) Altered mental status (Acute) Septic shock (Acute) Right bundle branch block (Acute) Elevated troponin (Acute) Elevated LFTs (Acute) MICHAEL (acute kidney injury) (Acute) Hyperkalemia (Acute) Lactic acidosis (Acute) COVID (Acute) Respiratory failure with hypoxia and hypercapnia (Acute) Nicotine dependence, cigarettes, uncomplicated (Acute) Respiratory failure with hypoxia (Acute) Hypoxemia (Acute) Sleep apnea (Acute) Depression (Chronic) Tobacco dependence (Acute) Supplemental oxygen dependent (Acute) Bipolar 1 disorder (Acute) Obesity (Chronic) Incontinence of urine (Acute) Diabetes (Chronic) Discharge planning issues (Acute) DVT prophylaxis (Acute) HTN (hypertension) (Chronic) Obstructive sleep apnea (Chronic) COPD (chronic obstructive pulmonary disease) (Chronic) Suicidal ideations (Acute) Hallucinations (Acute) Hypertension (Chronic) Medical History? Hyperlipidemia Obesity (BMI 30-39.9) Palliative care patient Schizophrenia Social History/Home Situation: Resident of [facility]. Equipment Owned/DME: FWW Subjective: Agreeable to getting out of his chair and to being assessed for walking. Reports feeling much improved. Denies headache, chest pain, and lightheadedness throughout session. Objective: General Observation: Seated on bedside chair. Oxygen supplementation via NC at 2 L/min. In NAD. Mental Status: Alert and oriented as to person, place, time, and purpose. Able to pay attention but needs extra time to respond at times. Pain: Denies Vital Signs: Oxygen saturation from 90% through 92% on 2 L during ambulation ROM: Right Upper Extremity: Shoulder Flexion up to 100 degrees. Shoulder abduction up to 100 degrees Elbow flexion WFL. Wrist flexion WFL. Functional opening and closing of hand WFL. Left Upper Extremity: Shoulder Flexion up to 100 degrees. Shoulder abduction up to 100 degrees Elbow flexion WFL. Wrist flexion WFL. Functional opening and closing of hand WFL. Right Lower Extremity: Hip flexion up to 110 degrees. Hip abduction WFL. Knee flexion up to 100 degrees. Ankle dorsiflexion to neutral only. Ankle plantarflexion WFL. Left Lower Extremity: Hip flexion up to 110 degrees. Hip abduction WFL. Knee flexion up to 100 degrees. Ankle dorsiflexion to neutral only. Ankle plantarflexion WFL. Strength: Right Upper Extremity: Shoulder flexors 3-/5. Shoulder abductors 3-/5. Elbow flexors 4-/5. Elbow extensors 4-/5. Sack Sewer Machine weak but functional. Left Upper Extremity: Shoulder flexors 3-/5. Shoulder abductors 3-/5. Elbow flexors 4-/5. Elbow extensors 4-/5. Sack Sewer Machine weak but functional. Right Lower Extremity: Hip flexors 3-/5. Hip abductors 4-/5. Knee flexors 3-/5. Knee extensors 4-/5. Ankle dorsiflexors 3-/5. Ankle plantarflexors 4-/5. Left Lower Extremity: Hip flexors 3-/5. Hip abductors 4-/5. Knee flexors 3-/5. Knee extensors 4-/5. Ankle dorsiflexors 3-/5. Ankle plantarflexors 4-/5. Bed Mobility/Transfers: Sit to stand contact guard assist Stand to sit stand by assist Bed to reclining chair stand by assist Reclining chair to bed stand by assist Gait: Instructed patient with level surface ambulation of 100 feet + 120 feet requiring contact guard assist. Asdie decreased. Step height decreased. Step length decreased. Minimal shortness of breath but oxygen saturation remained above 90% throughout. Balance: Static Sitting: Normal Dynamic Sitting: Normal Static Standing: Fair Dynamic Standing: Fair Special Tests: Mobility Limitations Standardized Measure [facility] 6 clicks Basic Mobility Inpatient Short Form: Raw Score: 18 CMS Score: 47% deficit Informed Consent/Education: Patient was instructed in purpose of PT consult and plan of care. Agreeable to proceed with established PT POC to achieve personal goals. Assessment: Patient presents with clinical signs and symptoms consistent with current/admitting diagnoses that have resulted to mobility limitations, gait instability, generalized weakness, and overall ADL decline as demonstrated by the following impairment level findings: 1. Decreased strength to B UE/LE major muscle groups 2. Impaired standing balance 3. Impaired activity tolerance 4. Limitation of joint range of motion in hip and knee for flexion 5. Shortness of breath requiring 2 L per minute of oxygen supplementation Impairments are contributing to the following functional limitations: 1. Difficulty with ambulation without assistive device and physical assistance 2. Increased completion time for mobility ADL performance 3. Increased risk for falls 4. Difficulty with managing steps alone safely Patient is assessed as a 63752 moderate complexity based on the following: History: 61-year-old male with past medical history as indicated above Examination: Demonstrable impairment in strength, balance, and mobility level with underlying impairments and functional limitations as exhibited above as well as deficit score of 47% utilizing the [facility] Mobility Inpatient Short Form Presentation: Evolving Decision Makin moderate complexity Goals: Goals X1 week 1. Supine-Sit independent 2. Sit-Supine independent 3. Sit-Stand independent 4. Stand-Sit independent with FWW 5. Bed-Chair independent with FWW 6. Chair-Bed independent with FWW 7. Independent gait on level surface with use of FWW for at least 300 feet without report of pain nor dyspnea 9. Good static and dynamic standing balance/tolerance Plan of Care/Treatment Plan: 1-2x/day, 7 days/week x 1 week. Plan of care has been reviewed with the QUALITY CONTROL EXPERT providing the service under Physical Therapy direction. Initiate Physical Therapy intervention for pain management as needed, strengthening, bed mobility, transfers, gait, stairs, balance training, and use of assistive device. DISCHARGE RECOMMENDATIONS: [] Home with no services [] [X] Home with services. Home when medically cleared by hospitalist. Recommend patient will benefit from home health PT services in order to progress mobility level using least restrictive assistive ambulatory device, assess home safety, identify additional equipment needs, and establish a functional mainten ance program that will increase ability of patient to remain at home. [] Home with outpatient PT [] [] SNF for continued rehabilitation [] [] Surplus Property Disposal Agent Care [] [] SNF versus LTC based on ability to participate and progress [] TREATMENT CODE/TIME: 47974 x 27 minutes beginning at 10:05 AM. Thank you for the opportunity to participate in the care of this patient. Faith Brown PT, DPT, CLT [facility] [place], [place]
--- NOTE | 2022-04-24 10:58 | PDOC.CMIN ---
- If Service Date Differs Date of service: 04/24/22 Time of Service: 10:58 Care Management Initial Assess REASON FOR HOSPITALIZATION:: acute/chronic respiratory failure, PNA, COPD PAST MEDICAL HISTORY/PAST SURGICAL HISTORY:: All Active Problems. COVID-19 (Acute). MICHAEL (acute kidney injury) (Acute). Elevated troponin (Acute). Acute respiratory failure with hypoxia and hypercapnia (Acute). CHF (congestive heart failure) (Chronic). Altered mental status (Acute). Septic shock (Acute). Right bundle branch block (Acute). Elevated troponin (Acute). Elevated LFTs (Acute). MICHAEL (acute kidney injury) (Acute). Hyperkalemia (Acute). Lactic acidosis (Acute). COVID (Acute). Respiratory failure with hypoxia and hypercapnia (Acute). Nicotine dependence, cigarettes, uncomplicated (Acute). Respiratory failure with hypoxia (Acute). Hypoxemia (Acute). Sleep apnea (Acute). Depression (Chronic). Tobacco dependence (Acute). Supplemental oxygen dependent (Acute). Bipolar 1 disorder (Acute). Obesity (Chronic). Incontinence of urine (Acute). Diabetes (Chronic). Discharge planning issues (Acute). DVT prophylaxis (Acute). HTN (hypertension) (Chronic). Obstructive sleep apnea (Chronic). COPD (chronic obstructive pulmonary disease) (Chronic). Suicidal ideations (Acute). Hallucinations (Acute). Hypertension (Chronic). Medical History. Hyperlipidemia. Obesity (BMI 30-39.9). Palliative care patient. Schizophrenia PREVIOUS FUNCTIONAL STATUS/SOCIAL/FAMILY SUPPORTS:: Nathan lives at [facility] in [place], [place]. 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 CURRENT FUNCTIONAL STATUS:: Nathan was sitting up in his chair when CM met with him. He reported that he is doing well, and is feeling much better now than he did while at [facility]. He reported that he plans to return to [facility], but is not sure when he will be able to return. He was evaluated by PT today, who recommended that he return home once medically cleared with PT. CM will continue to follow. ADVANCE DIRECTIVES:: On file. Delmy Lewis listed as agent. Has patient been provided with info about the portal/API?: Yes Did the patient sign up for the portal?: No CODE STATUS:: Full Code INSURANCE COVERAGE / FINANCIAL ISSUES:: [employer] CURRENT HOME/COMMUNITY SERVICES/EQUIPMENT:: CLIN[facility], lives at [facility]. PRIMARY CARE PHYSICIAN:: Renée Flores POTENTIAL DISCHARGE NEEDS:: Coordinated return to [facility]. PATIENT/FAMILY EDUCATION NEEDS:: Review discharge instructions and limitations, discussion of self care needs inlcuding ask me three. ANTICIPATED BARRIERS TO DISCHARGE:: None identified at this time. TRANSPORTATION:: Via private vehicle [facility] vs [facility]. PLAN:: Anticipate Nathan will return to [facility] once he is medically cleared. He will be evaluated by PT to determine his functional status. He will likely transport via [facility] private vehicle. He will follow up with his PCP and discharge plan of care. CM will continue to follow.
--- NOTE | 2022-04-24 13:57 | PT.INTREAT ---
Date of service: 04/24/22 Time of Service: 13:05 PT Notes Visit Reasons: Acute/Chronic Respiratory Failure,PNA,COPD Inpatient Physical Therapy Treatment Note [facility] Date: 04/24/2022 PRECAUTIONS: Fall, activity as tolerated SUBJECTIVE: Nathan is pleasant and agreeable to participating in PT. He reports that he is feeling better. He is worried that [facility] will not take him back because he is not as independent as he was prior to his hospitalization. OBJECTIVE: PAIN: No c/o pain BED MOBILITY/TRANSFERS Sit-stand: S Stand-sit: S GAIT Assistive Device: FWW Weight bearing: Full Assist: SBA Distance: 200' Deviation: Minimal SOB VITALS: SaO2: 88-92% on 2L O2 with gait training, with brief desaturation to 87% THEREX: Patient was instructed in a LE strengthening program, completed in a seated position, to include: ankle pumps, heel raises, LAQ, hip flexion and hip abduction. ASSESSMENT: Patient tolerated session well, with minimal SOB with gait training. He maintains an oxygen saturation of 88-92% on 2L O2 with gait training. PLAN: Continue with gait training with FWW support as well as global strengthening and conditioning. TREATMENT CODE/TIME: 25 minutes; 37042, 61225 (13:05)
--- NOTE | 2022-04-24 14:21 | CHAPLAIN ---
Nathan was up in the chair when I visited the morning. When I asked if he's been in touch with family or friends, he told me that his mom gave up on him when this happened. I'm not sure what this is. He said she left and went on the [email or web address] show and later . He said his father and brother and mom all within three years. I asked if he lived in [facility], and he said yes. According to Care Management notes, Nathan lives at [facility] and is a client of [facility].
--- NOTE | 2022-04-24 15:33 | PHA.REVIEW2 ---
Pharmacy Admission Review - Admission Clinical Review (Last Reviewed 04/23/22 @ 18:43 by Sukhdeep Collins MD) Acute respiratory failure with hypoxia and hypercapnia (Acute) Penicillins Allergy (Severe, Unverified 02/05/22 13:13) Anaphylaxis dextromethorphan [From Dimetapp Cold-Congestion] Allergy (Mild, Unverified 02/05/22 13:13) Skin Rash diphenhydramine [From Dimetapp Cold-Congestion] Allergy (Mild, Unverified 02/05/22 13:13) Skin Rash guaifenesin [From Dimetapp Cold-Congestion] Allergy (Mild, Unverified 02/05/22 13:13) Skin Rash phenylephrine [From Dimetapp Cold-Congestion] Allergy (Mild, Unverified 02/05/22 13:13) Skin Rash pseudoephedrine [From Dimetapp Cold-Congestion] Allergy (Mild, Unverified 02/05/22 13:13) Skin Rash bupropion [From Wellbutrin] Adverse Reaction (Intermediate, Unverified 02/05/22 13:13) Other (See Comment) Resuscitation Status Full Code Height 5 ft 9 in Weight 106 kg - Renal Dosing Renal Dosing: BUN 15 mg/dL (7-18) 04/24/22 06:07 Creatinine 0.7 mg/dL (0.70-1.30) 04/24/22 06:07 Medications needing adjustments: Reviewed (eCrCl 94 ml/min) - Anticoagulation Anticoagulation: Hgb 15.6 g/dL (13.5-17.5) 04/24/22 06:07 Hct 50.7 % (40.0-50.0) H 04/24/22 06:07 Plt Count 230 10^3/uL (130-400) 04/24/22 06:07 Creatinine 0.7 mg/dL (0.70-1.30) 04/24/22 06:07 DVT Prophylaxis: Reviewed Medications: Heparin - Opiate Usage Evaluate Pain Scale/Pains Meds: N/A - Relevant Labs Sodium 146 mmol/L (136-145) H 04/24/22 06:07 Potassium 4.4 mmol/L (3.5-5.1) 04/24/22 06:07 Chloride 105 mmol/L (98-107) 04/24/22 06:07 Electrolytes, C-Reactive P, ESR: N/A - DM Control DM Control: Glucose 123 mg/dL (74-106) H 04/24/22 06:07 Finger Stick Blood Glucose 109 Finger Stick Blood Glucose 109 DM Control: Intervened Insulin Dosing, Diabetic Medication: metformin on home med list, will recommend SSI at meal times to provider - Cardiac Review BP, HR, EF%: Reviewed - Qtc Review QTc: N/A - Home Meds Home Med List reviewed: Reviewed Relevent Home Meds Not ordered & why?: not ordered: metformin (will recommend SSI), oxybutynin, simvastatin, incruse inhaler - Current meds Current Medication Order Review: Reviewed
--- NOTE | 2022-04-24 16:27 | W.PM.PROGNOT ---
Date of Service Date of service: 04/24/22 Time of Service: 09:15 Assessment and Plan Assessment and plan (1) Acute respiratory failure with hypoxia and hypercapnia: Status: Acute Assessment and plan: S/P respiratory failure due to combination of COPD, pneumonia and COVID, and presumed but undiagnosed JEREMIAS. Now appears to be back to baseline. Continue prn updrafts, consider sleep study IS COVID: as above unable to complete primary course of treatment d/t acute liver injury (now resolved). No overt ill effects now 13 days out. Now back to his baseline supplemental O2 of 2-4L. (2) Schizophrenia: Assessment and plan: Cont Geodon. Stable (3) Pneumonia: Status: Resolved Assessment and plan: s/p H. Flu and Covid PNA Resp interventions as above. (4) Bipolar 1 disorder: Status: Acute Assessment and plan: Cont Viibryd. Stable. (5) HTN (hypertension): Status: Chronic Assessment and plan: On LIsinopril. Moniro (6) MICHAEL (acute kidney injury): Status: Acute Assessment and plan: Resolved. (7) COVID-19: Status: Acute Assessment and plan: 13 days post + test. No precautions. Respiratory status returned to baseline. (8) Discharge planning issues: Status: Acute Assessment and plan: He resides in residential facility; [facility]. Working with PT. Deconditioned state but improving. Likely return to [facility] Subjective Subjective Patient reports: no new complaints, feels better, tolerating a regular diet and afebrile; denies nausea or vomiting Interval history since last seen: Walked in hallway with PT Exam Narrative Exam Narrative: Gen: Sitting in chair. Cooperative. 2L NC. HEENT atraumatic. Sclera clear. Resp: clear. Nonlabored breathing. Heart RRR; Abdomen soft and NT Ext: trace pedal edema Neuro/Psych: flat affect, Ox3 . No focal motor deficits. Objective Last Vital Signs Temp 36.7 C 04/24/22 14:37 Pulse 77 04/24/22 14:37 Resp 18 04/24/22 14:37 BP 124/80 04/24/22 14:37 Pulse Ox 92 04/24/22 14:37 Laboratory Results - last 24 hr 04/24/22 04/24/22 04/24/22 06:07 06:07 06:07 WBC 6.82 RBC 5.62 Hgb 15.6 Hct 50.7 H MCV 90 MCH 27.8 MCHC 30.8 L RDW 15.8 H Plt Count 230 MPV 10.0 Immature Gran % 0.3 Neutrophils % 65.3 Lymphocytes % 21.3 Monocytes % 11.0 Eosinophils % 1.5 Basophils % 0.6 Nucleated RBC % 0.0 Absolute Neutrophils 4.46 Absolute Lymphocytes 1.45 Absolute Monocytes 0.75 Absolute Eosinophils 0.10 Absolute Basophils 0.04 Sodium 146 H Potassium 4.4 Chloride 105 Carbon Dioxide 39.5 H Anion Gap 1.5 L BUN 15 Creatinine 0.7 Est GFR (CKD-EPI 2020) 105.49 Glucose 123 H Calcium 9.1 Total Bilirubin 0.4 AST 31 29 ALT 72 H 70 H Alkaline Phosphatase 76 Total Protein 6.4 Albumin 2.7 L Time Spent with Patient Time Spent with Patient: 25-34 minutes Time was spent: preparing to see the patient(eg.review tests), ordering medications,tests, procedures, referring, communicating with other health resident care associate, indepentently interpreting results and care coordination
[2022-04-24] MEDS: Acetaminophen 500 MG TAB 1000 MG PO (22:57)
[2022-04-25] MEDS: Heparin 5,000 UNITS/ML VIAL 5000 UNITS SC ×2 (01:20→10:18)
[2022-04-25 07:19] VITALS: BP 137/88; PULSE 82; RESP 16; TEMP 36; O2SAT 92
[2022-04-25 07:44] VITALS: PULSE 76; RESP 8; O2SAT 94
[2022-04-25] MEDS: Albuterol/Ipratropium 3 ML UPD VIAL UPD (07:44)
--- NOTE | 2022-04-25 07:47 | RESPIRATORY ---
Patient states he wears home Oxyen at 2L. Patients DME is [facility].
[2022-04-25] MEDS: Acetaminophen 500 MG TAB 1000 MG PO (07:56)
[2022-04-25] MEDS: Aspirin 81 MG CHEW PO (07:57)
[2022-04-25] MEDS: ARIPiprazole 5 MG TAB PO (07:57)
[2022-04-25 08:54] LABS: ALT 67 U/L (16-63); AST 30 U/L (15-37); Albumin 2.8 g/dL (3.4-5.0); Alkaline Phosphatase 97 U/L (46-116); Anion Gap 1.4 mmol/L (3-11); BUN 16 mg/dL (7-18); Bilirubin, Direct 0.2 mg/dL (0.0-0.2); Bilirubin, Total 0.4 mg/dL (0.2-1.0); CO2 38.6 mmol/L (21.0-32.0); CREATININE 0.8 mg/dL (0.70-1.30); Calcium 8.9 mg/dL (8.5-10.1); Chloride 100 mmol/L (98-107); Estimated GFR 101.32 (mL/min/1.73m2); Glucose 132 mg/dL (74-106); Potassium 4.1 mmol/L (3.5-5.1); Sodium 140 mmol/L (136-145); Total Protein 6.5 g/dL (6.4-8.2)
--- NOTE | 2022-04-25 08:57 | OT.INTREAT ---
Occupational Therapy Notes Occupational Therapy Inpatient Treatment Note Date: 04/25/22 PRECAUTIONS: Fall, standard, full SUBJECTIVE: Pt states that he already performed his ADLs. He notes that he can do most of his ADLs but needs help. OBJECTIVE: PAIN:no c/o pain during OT session Self Care Training [id number]: OT educated and trained pt in adaptive equipment including sock aid, dressing stick and field service consultant to (A) with functional (I) in his ADLs. Pt was receptive to this, he was able to perform this with fair-good technique and min vc throughout. TREATMENT CODES/TIME: 43273, 15 minutes Mary Lomeli OTR/[facility]
[2022-04-25] MEDS: Insulin Aspart 300 UNITS/3 ML PEN SC (11:33)
[2022-04-25 11:55] VITALS: PULSE 103; PULSE 71; O2SAT 90; O2SAT 94
--- NOTE | 2022-04-25 13:02 | DSE_ITS ---
Date of service: 04/25/22 Time of Service: 13:02 DS: Diagnosis Discharge Diagnosis (1) Acute respiratory failure with hypoxia and hypercapnia: Status: Acute Asessment and Plan: Acute on chronic hypoxic respiratory failure; acute hypercapnic respiratory failure (2) Pneumonia: Status: Resolved (3) COVID-19: Status: Acute (4) Bipolar 1 disorder: Status: Acute (5) Schizophrenia: (6) HTN (hypertension): Status: Chronic (7) MICHAEL (acute kidney injury): Status: Acute Discharge Plan Disposition Patient Disposition: Home W/Home Health Services Condition: Improving Discharge Details Reason For Visit: Acute/Chronic Respiratory Failure,PNA,COPD Admit Date/Time: 04/23/22 12:48 Admit Provider: Omar Farmer Attending Provider: mOar Farmer Primary Care Provider: MIMI PEREZ [facility] Course Hospital Course: Mr Colunga is a 61 year old male with PMHx of oxygen-dependent COPD, normally on 2-4 L of O2 by [place], as well as h/o JEREMIAS, NIDDM2, HTN, who was transferred back to [facility] from [facility] after a transfer there initially 10 days prior with respiratory failure requiring intubation in setting of a combination of COVID-19, COPD exacerbation, and an H.Flu pneumonia. He was already off of antibiotics by the time of his arrival to [facility]. Since his arrival back to [facility] on 04/23/22 (extubated 5 days prior), the patient has been working with PT and OT. He is back to his baseline respiratory status, requiring only 2L of O2 on ambulation today as evidenced by his exercise oximetry. He was able to do 13 steps with physical therapy today and is felt stable for discharge home today with referral to home health PT and OT on discharge. Care for patient as well as completion of his discharge summary on day of discharge took 45 minutes. Home Meds and New Rx's Prescriptions: Continued lisinopril 30 mg tablet 30 mg PO DAILY metformin 750 mg tablet extended release 24 hr 750 mg PO DAILY Viibryd 40 mg tablet 40 mg PO DAILY Rx Instructions: must administer with a meal/food aripiprazole [Abilify] 5 mg tablet 5 mg PO DAILY Incruse Ellipta 62.5 mcg/actuation blister with device 1 inh inhalation DAILY albuterol sulfate [Ventolin HFA] 90 mcg/actuation HFA aerosol inhaler 2 puff inhalation Q6H PRN PRN (Reason: shortness of breath or wheezing) Qty: 8.5 12RF ipratropium-albuterol 0.5 mg-3 mg(2.5 mg base)/3 mL solution for nebulization 3 ml inhalation Q4H PRN (Reason: wheezing) Qty: 540 12RF nystatin 100,000 unit/gram powder 1 applic topical BID cholecalciferol (vitamin D3) 25 mcg (1,000 unit) tablet 25 mcg PO DAILY Patient Comments: 1 daily hydrocortisone 1 % Cream 1 applic topical BID ziprasidone HCl 40 mg capsule 40 mg PO QHS budesonide-formoterol [Symbicort] 160-4.5 mcg/actuation HFA aerosol inhaler See Rx Instructions .ROUTE .COMPLEX Rx Instructions: 2 puffs BID Discontinued simvastatin 20 mg tablet 20 mg PO QHS oxybutynin chloride 15 mg tablet extended release 24hr 30 mg PO DAILY Qty: 60 11RF Rx Instructions: Note dosage change to 30mg daily No Action (DME) blood-glucose meter Misc See Rx Instructions .Route Rx Instructions: As directed (DME) Disposable Brief Jumbo X-Large Misc See Rx Instructions .Route Rx Instructions: As directed (DME) Blood Glucose Test Strip See Rx Instructions .Route Rx Instructions: As directed (DME) lancets [OneTouch UltraSoft Lancets] Misc See Rx Instructions .Route Rx Instructions: As directed (DME) oxygen and supplies 2 liters 0 .Route .MEDSUPPLY Discharge Instructions Instructions: Bacterial Pneumonia (DC), COVID-19 (Coronavirus Disease 2019) (DC) Additional Instructions: Return to the hospital with any fever, bleeding, chest pain, or shortness of breath. Follow up with your PCP in 1-2 weeks. Follow up with Dr Castro as scheduled. Care Plan Goals: Home with new home health PT and OT. Stand Alone Forms: Nursing Discharge Form Referrals: MIMI PEREZ NP [Primary Care Provider] - 05/06/22 2:15 pm Mindi Castro MD [ [facility] STAFF PHYSICIAN] - 05/10/22 1:00 pm Activity:: Activity as Tolerated Equipment/Supplies:: No Equipment Needed Diet:: As Tolerated Discharge Orders Discharge Orders: Discharge Order (Routine); Ordered 04/25/22 Ordered By: Jordyn Whiting DS: Summary Time Spent with Patient providing and/or coordinating discharge services: Greater than 30 minutes Status at Discharge Functional status at discharge: uses cane/walker Overall status at discharge: patient is progressing back to baseline Mental Status: mental status grossly normal Speech and Movement: speech and movement normal Mood: congruent mood and anxious mood Affect: normal affect Exam Narrative Exam Narrative: General: Pleasant middle-aged male who is A&Ox3, on 2L of O2 by [place] HEENT: EOMI, MMM Heart: RRR, no m/r/g Lungs: CTAB Abdomen: soft, nontender, nondistended Extremities: +1 edema BLEs, symmetric Psych Mental Status: mental status grossly normal Speech and Movement: speech and movement normal Mood: congruent mood and anxious mood Affect: normal affect DS: Data Vitals/I&O Vitals and I&O: Vital Signs Temperature 36.0 C L 04/25/22 07:19 Temperature Source Tympanic 04/25/22 07:19 Pulse 76 04/25/22 07:44 Pulse Rhythm Regular 04/25/22 08:38 Respiratory Rate 16 04/25/22 07:19 Respiratory Effort Normal, Non-Labored 04/25/22 08:38 Respiratory Depth Normal 04/25/22 08:38 Respiratory Pattern Normal 04/25/22 08:38 Blood Pressure 137/88 04/25/22 07:19 Pulse Oximetry 94 04/25/22 07:44 Oxygen Delivery Method Nasal Cannula 04/25/22 07:44 Oxygen Flow Rate 2 04/25/22 07:44 Pain Level 0 04/25/22 08:56 Comment pt c/o abdominal pain 04/25/22 07:19 Intake & Output 04/24/22 04/25/22 04/25/22 23:59 11:59 23:59 Intake Total 480 / 840 200 / 200 Output Total 300 / 300 Balance 180 / 540 200 / 200 Weight 107.3 kg Intake: Oral 480 / 840 200 / 200 Output: Urine 300 / 300 Other: Urine Color Yellow Urine Appearance Clear Clear Urine Odor None Comment pT removed hat; voided into toliet and flushed unable to measure, however it was aheavy stream Voiding Methods Toilet Toilet Data Completed and Pending Completed studies during hospitalization [Text1]: CXR 04/12/22: Increased lung markings in the bases.? Atelectasis versus pneumonia.? CXR 04/12/22: 1. Increased opacity in the left lung.? This may represent pulmonary edema or atelectasis.? Underlying infiltrate was suspected.? There is a persistent small right basilar infiltrate. 2. Tip of the endotracheal tube is 3.8 cm above the felipa.? Labs on day of discharge: Labs from last 24 hours 04/25/22 08:20 Sodium 140 Potassium 4.1 Chloride 100 Carbon Dioxide 38.6 H Anion Gap 1.4 L BUN 16 Creatinine 0.8 Est GFR (CKD-EPI 2020) 101.32 Glucose 132 H Calcium 8.9 Total Bilirubin 0.4 Conjugated Bilirubin 0.2 AST 30 ALT 67 H Alkaline Phosphatase 97 Total Protein 6.5 Albumin 2.8 L PFSH All Active Problems COVID-19 (Acute) MICHAEL (acute kidney injury) (Acute) Elevated troponin (Acute) Acute respiratory failure with hypoxia and hypercapnia (Acute) CHF (congestive heart failure) (Chronic) Altered mental status (Acute) Septic shock (Acute) Right bundle branch block (Acute) Elevated troponin (Acute) Elevated LFTs (Acute) MICHAEL (acute kidney injury) (Acute) Hyperkalemia (Acute) Lactic acidosis (Acute) COVID (Acute) Respiratory failure with hypoxia and hypercapnia (Acute) Nicotine dependence, cigarettes, uncomplicated (Acute) Respiratory failure with hypoxia (Acute) Hypoxemia (Acute) Sleep apnea (Acute) Depression (Chronic) Tobacco dependence (Acute) Supplemental oxygen dependent (Acute) Bipolar 1 disorder (Acute) Obesity (Chronic) Incontinence of urine (Acute) Diabetes (Chronic) Discharge planning issues (Acute) DVT prophylaxis (Acute) HTN (hypertension) (Chronic) Obstructive sleep apnea (Chronic) COPD (chronic obstructive pulmonary disease) (Chronic) Suicidal ideations (Acute) Hallucinations (Acute) Hypertension (Chronic) Medical History Hyperlipidemia Obesity (BMI 30-39.9) Palliative care patient Schizophrenia Family History Other Adopted Social History Smoking/Tobacco Use Status: Current every day Tobacco Type: cigarettes Smoking packs per day: 0 Smoking cigarettes per day: 0.0 Years smoked: 30 Smoking pack- years: 0.00 Tobacco: How many years used: 30 Smoking risk assessment performed?: Yes Alcohol Intake: former Drug use: Never Substance use type: does not use Caregiver/Support person: No Household members: none Housing: homeless Number of Children: 0 Communication Needs: Hard of Hearing and Corrective Lenses Education Level: high school Do you need help understanding health information?: Always current occupation: disabled due to mental illness Pets and animals: No Current gender identity: male What is your relationship status?: never How often do you talk on the phone with friends or family?: never How often do you get together with friends or relatives?: never Panel score (0-1 are the most socially isolated patients): 0 What type of physical activity do you participate in: none and sedentary lifestyle Frequency: does not exercise Special mannie needs: No Seatbelt use: always Do you feel safe at home: Yes (hallucinating re dying) Do you feel safe in your relationship?: Yes Additional Social history: Nathan presents with his [facility] worker, Marko King. Nathan is homeless, currently housed at [facility]. He has been asked to leave, partly as his housing was paid for through [employer] grants that have come to an end, and partly due to his chronic urinary incontinence. He [facility] ruined more than [facility] He used to live in [place], [place] with his mother. He says I'm not allowed to speak to her. Marko and other [facility] staff are trying to find Nathan placement. He lived briefly at the [facility] before being transferred to the [facility]. Most of his health problems are psychiatric in nature, including his poor self care. We were able to get him an appointment with Hina Hadley NP at [facility] for the day after my visit with Nathan. Time Spent with Patient Time Spent with Patient: 45-69 minutes Time was spent: preparing to see the patient(eg.review tests), obtaining and/or reviewing separately otained hiistory, ordering medications,tests, procedures, referring, communicating with other health careers adviser, indepentently interpreting results, counseling the patient and care coordination
--- NOTE | 2022-04-25 14:28 | PDOC.HHF2F ---
Home Health Referral Home Health Orders Clinical synopsis of why skilled professionals are needed: Mr Colunga is a 61 year old male with PMHx of oxygen-dependent COPD, normally on 2-4 L of O2 by [place], as well as h/o JEREMIAS, NIDDM2, HTN, who was transferred back to [facility] from [facility] after a transfer there initially? 10 days prior with respiratory failure requiring intubation in setting of a combination of COVID-19, COPD exacerbation, and an H.Flu pneumonia. He was already off of antibiotics by the time of his arrival to [facility]. Since his arrival back to [facility] on 04/23/22 (extubated 5 days prior), the patient has been working with PT and OT. He is back to his baseline respiratory status, requiring only 2L of O2 on ambulation today as evidenced by his exercise oximetry. He was able to do 13 steps with physical therapy today and is felt stable for discharge home today with referral to home health PT and OT on discharge for continued exercises/endurance training. Medical diagnosis necessitation home health referral: pneumonia, weakness Physical Therapist: Check all that apply Increase strength & endurance for safe mobility at home: Ordered To design/establish home maintenance program: Ordered Fall reduction therapy program for patient with history of frequent falls: Ordered Home safety evaluation and teaching/gait training including stair management (if applicable): Ordered Better Breathing Program: Ordered Occupational Therapist: Evaluate and treat for patient unable to perform ADL/IADL/self-care: Ordered Home Bound Status Requires the aid of supportive device (check all that apply): Walker Assistance of another person (Describe assistance and medical necessity): has a h/o mental illness requiring supervision Describe why leaving home would require a considerable and taxing effort: Oxygen and Requires alternative accommodations: Encounter Date and Reason: I certify that a FTF encounter for this patient was performed on April 25, 2022 and that such encounter was related to the primary reason the patient requires home health services. The encounter was conducted in the following manner: By me as the certifying physician, ROTOR CASTING MACHINE OPERATOR, PA or By an inpatient physician, ROTOR CASTING MACHINE OPERATOR or PA during an inpatient stay who communicated findings to me, Certification And Authentication I certify that I composed the above information based on my clinical judgment relating to this patient's medical condition and, if applicable, clinical findings communicated to me by the NPP or inpatient physician who performed the FTF encounter. Name of Provider that will be monitoring home health services: MIMI PEREZ
--- NOTE | 2022-04-25 14:43 | PTTR_ITS ---
Date of service: 04/25/22 Time of Service: 11:35 PT Notes Visit Reasons: Acute/Chronic Respiratory Failure,PNA,COPD Inpatient Physical Therapy Treatment Note [facility] Date: 04/25/2022 PRECAUTIONS: Fall, activity as tolerated SUBJECTIVE: Nathan is pleasant and agreeable to participating in PT. He continues to express concern regarding returning to [facility] because he is not as independent as he was prior to his hospitalization. OBJECTIVE: PAIN: No c/o pain BED MOBILITY/TRANSFERS Sit-stand: I Stand-sit: I GAIT Assistive Device: FWW Weight bearing: Full Assist: S Distance: 200' + 100' in a.m.; 100' in p.m. Deviation: Minimal SOB VITALS: A.m. session completed in collaboration with RT for formal exercise oximetry testing. Please see their notes for specific vital sign details. STAIRS: Up/down 7x6 using U rail and a step-to pattern with SBA in a.m.; Up/down 13x6 using U rail and a step-to pattern with SBA in p.m. ASSESSMENT: Patient tolerated session well, with minimal SOB with gait training. He demonstrates ability to negotiate a flight of stairs without difficulty at this time. PLAN: Patient to discharge back to [facility] later today, per provider. Recommend follow up with PT upon discharge. TREATMENT CODE/TIME: Session 1: 23 minutes; 43890 x2 (11:35) Session 2: 15 minutes; [id number] (12:43)
--- NOTE | 2022-04-25 15:20 | CMDISCH_ITS ---
- If Service Date Differs Date of service: 04/25/22 Time of Service: 15:20 LACE Index Scoring Tool - Questions: Length of Stay (in days): 2 Acuity (Admit via E.D.?): No Comorbidities: Congestive Heart Failure, Chronic Pulmonary Disease E.D. Visits: 3 - Answers: Total Score: 10 Risk of Readmission: High Risk Care Management Discharge Reason for Hospitalization: acute/chronic respiratory failure, PNA, COPD Discharge Plan: Nathan returned to [place] today, where he resides. He transported via [facility] private vehicle, coordinated by CM. He will follow up with his PCP and discharge plan of care. Patient/Family Education Needs: Review discharge instructions and limitations, discussion of self care needs including ask me three. Services Needed at Discharge: Home Health Care Services ( PT, OT), Tr ansportation ([facility] )
== END 2022-04-25 14:58 | disposition home health service (06) | DRG 177 ==
PROVIDERS: General Practice; Internal Medicine; Admitting Provider Family Medicine; PCP Nurse Practitioner Family; Visit Provider Family Medicine
DX: U07.1 COVID-19 (principal); J18.9 Pneumonia, unspecified organism; J96.02 Acute respiratory failure with hypercapnia; J96.21 Acute and chronic respiratory failure with hypoxia; N17.9 Acute kidney failure, unspecified; J44.0 Chronic obstructive pulmonary disease with (acute) lower respiratory infection; F31.9 Bipolar disorder, unspecified; G47.33 Obstructive sleep apnea (adult) (pediatric); Z99.81 Dependence on supplemental oxygen; E11.9 Type 2 diabetes mellitus without complications; E78.5 Hyperlipidemia, unspecified; R74.8 Abnormal levels of other serum enzymes; I50.9 Heart failure, unspecified; I11.0 Hypertensive heart disease with heart failure; I45.10 Unspecified right bundle-branch block; E87.5 Hyperkalemia; F17.200 Nicotine dependence, unspecified, uncomplicated; E66.9 Obesity, unspecified; Z68.34 Body mass index [BMI] 34.0-34.9, adult; R32 Unspecified urinary incontinence; F20.9 Schizophrenia, unspecified; Z59.01 Sheltered homelessness
CPT/HCPCS: 36415; 80048; 80053; 80076; 94618; 97110; 97162; 97166; 97530; 97535; 84450; 84460; 85025; 94640; 94760; 99221; 99232; 99239; J1644; J7613; J7620

== ENCOUNTER → 2022-05-01 15:24 | Outpatient (BNVA) | payer MEDICARE, MEDICAID, SELFPAY ==
--- NOTE | 2022-05-02 08:31 | PT.INDS ---
Date of service: 04/25/22 PT Notes Visit Reasons: 2 mo f/u Physical Therapy Inpatient Discharge Summary Date: 04/25/2022 Dates of Service: 04/24/2022 through 04/25/2022 This is a clinical summary of care provided for the duration of dates listed above. No charge was made in the completion of this documentation. Referring Doctor: Omar Farmer MD PT Orders: PT CONSULT: Eval/Treat Precautions: Fall. Standard. Activity as tolerated. On 2L of oxygen via [place]. Patient Profile/Admitting Diagnosis:? Maxi is a 61-year-old male on palliative care admitted for continued management of acute respiratory failure with hypoxia and hypercapnia from COPD, pneumonia, and COVID-19 infection. PMHX: All Active Problems? COVID-19 (Acute) MICHAEL (acute kidney injury) (Acute) Elevated troponin (Acute) Acute respiratory failure with hypoxia and hypercapnia (Acute) CHF (congestive heart failure) (Chronic) Altered mental status (Acute) Septic shock (Acute) Right bundle branch block (Acute) Elevated troponin (Acute) Elevated LFTs (Acute) MICHAEL (acute kidney injury) (Acute) Hyperkalemia (Acute) Lactic acidosis (Acute) COVID (Acute) Respiratory failure with hypoxia and hypercapnia (Acute) Nicotine dependence, cigarettes, uncomplicated (Acute) Respiratory failure with hypoxia (Acute) Hypoxemia (Acute) Sleep apnea (Acute) Depression (Chronic) Tobacco dependence (Acute) Supplemental oxygen dependent (Acute) Bipolar 1 disorder (Acute) Obesity (Chronic) Incontinence of urine (Acute) Diabetes (Chronic) Discharge planning issues (Acute) DVT prophylaxis (Acute) HTN (hypertension) (Chronic) Obstructive sleep apnea (Chronic) COPD (chronic obstructive pulmonary disease) (Chronic) Suicidal ideations (Acute) Hallucinations (Acute) Hypertension (Chronic) Medical History? Hyperlipidemia Obesity (BMI 30-39.9) Palliative care patient Schizophrenia Social History/Home Situation: Resident of [facility]. Equipment Owned/DME: Fausto Subjective: NT. See most recent DRY [facility]AL[facility]ACK[facility] notes. Objective: General Observation: NT. See most recent DR[facility]AL[facility]ACK[facility] notes. Mental Status: NT. See most recent DR[facility] TAL[facility]ACK[facility] notes. Pain: NT. See most recent DRY TAL[facility]ACK[facility] notes. Vital Signs: NT. See most recent DRY TALC RACKER notes. ROM: Right Upper Extremity: ? Shoulder Flexion up to 100 degrees. Shoulder abduction up to 100 degrees Elbow flexion WFL. Wrist flexion WFL. Functional opening and closing of hand WFL. Left Upper Extremity:? Shoulder Flexion up to 100 degrees. Shoulder abduction up to 100 degrees Elbow flexion WFL. Wrist flexion WFL. Functional opening and closing of hand WFL. Right Lower Extremity: Hip flexion up to 110 degrees. Hip abduction WFL. Knee flexion up to 100 degrees. Ankle dorsiflexion to neutral only. Ankle plantarflexion WFL. Left Lower Extremity: Hip flexion up to 110 degrees. Hip abduction WFL. Knee flexion up to 100 degrees. Ankle dorsiflexion to neutral only. Ankle plantarflexion WFL. Strength: Right Upper Extremity: Shoulder flexors 3-/5. Shoulder abductors 3-/5. Elbow flexors 4-/5. Elbow extensors 4-/5. Insulation Cupola Operator weak but functional. Left Upper Extremity: Shoulder flexors 3-/5. Shoulder abductors 3-/5. Elbow flexors 4-/5. Elbow extensors 4-/5. Insulation Cupola Operator weak but functional. Right Lower Extremity: Hip flexors 3-/5. Hip abductors 4-/5. Knee flexors 3-/5. Knee extensors 4-/5. Ankle dorsiflexors 3-/5. Ankle plantarflexors 4-/5. Left Lower Extremity: Hip flexors 3-/5. Hip abductors 4-/5. Knee flexors 3-/5. Knee extensors 4-/5. Ankle dorsiflexors 3-/5. Ankle plantarflexors 4-/5. BED MOBILITY/TRANSFERS? Sit-stand: I? Stand-sit: I ? GAIT? Assistive Device: FWW? Weight bearing: Full Assist: S ? Distance: 200' + 100' in a.m.; 100' in p.m. ? Deviation: Minimal SOB Balance: Static Sitting: Normal Dynamic Sitting: Normal Static Standing: Fair Dynamic Standing: Fair Assessment: Patient presents with clinical signs and symptoms consistent with current/admitting diagnoses that have resulted to mobility limitations, gait instability, generalized weakness, and overall ADL decline as demonstrated by the following impairment level findings: 1.? Decreased strength to B UE/LE major muscle groups 2.? Impaired standing balance 3.? Impaired activity tolerance 4.? Limitation of joint range of motion in hip and knee for flexion 5.? Shortness of breath requiring 2 L per minute of oxygen supplementation Impairments are contributing to the following functional limitations: 1.? Difficulty with ambulation without assistive device and physical assistance 2.? Increased completion time for mobility ADL performance 3.? Increased risk for falls 4.? Difficulty with managing steps alone safely Patient is assessed as a [id number] moderate complexity based on the following: History: 61-year-old male with past medical history as indicated above Examination: Demonstrable impairment in strength, balance, and mobility level with underlying impairments and functional limitations as exhibited above as well as deficit score of 47% utilizing the [facility] Mobility Inpatient Short Form Presentation: Evolving Decision Makin moderate complexity Goals: Goals X1 week 1. Supine-Sit independent MET 2. Sit-Supine independent MET 3. Sit-Stand independent MET 4. Stand-Sit independent with FWW MET 5. Bed-Chair independent with FWW MET 6. Chair-Bed independent with FWW MET 7. Independent gait on level surface with use of FWW for at least 300 feet without report of pain nor dyspnea NOT MET 9. Good static and dynamic standing balance/tolerance NOT MET DISCHARGE RECOMMENDATIONS: [] ? Home with no services [] [X] ? Home with services.? Home when medically cleared by hospitalist.? Recommend patient will benefit from home health PT services in order to progress mobility level using least restrictive assistive ambulatory device, assess home safety, identify additional equipment needs, and establish a functional maintenance program that will increase ability of patient to remain at home. [] ? Home with outpatient PT [] [] ? SNF for continued rehabilitation [] [] ? [facility] Care [] [] ? SNF versus LTC based on ability to participate and progress [] TREATMENT CODE/TIME: MS Thank you for the opportunity to participate in the care of this patient. Faith Brown PT, DPT, CLT [facility] [place], [place]
== END ==
PROVIDERS: PCP Nurse Practitioner Family; Visit Provider Nurse Practitioner Gerontology
DX: R32 Unspecified urinary incontinence (principal); Z59.00 Homelessness unspecified
CPT/HCPCS: 51798; 99213

== ENCOUNTER 2022-05-23 03:36 | Outpatient (CLI) | payer MEDICARE, MEDICAID, SELFPAY ==
[2022-05-23] MEDS: Albuterol HFA 18 GM 200 PUFF INH IH (10:49)
[2022-05-23] MEDS: Inhaler, Assist Device 1 EACH MC (10:49)
--- NOTE | 2022-06-05 06:48 | W.PFT ---
Date of service: 05/23/22 Time of Service: 09:58 Pulmonary Function Test Result Requesting Provider Gloria Indications: COPD and COVID Interpretation Spirometry: There is severe airflow limitation. There is significant bronchodilator response. The FVC is low, likely due to obstruction. Lung Volumes: There is air trapping Diffusion Capacity: Decreased diffusion Airway Pressure: Increased airways resistance Impression Severe airflow limitation with a very significant bronchodilator response, air trapping and a decreased diffusion. This likely represents severe emphysematous COPD and asthma. Note: When compared to 08/05/19, the FEV1 and FVC are stable. Clinical Correlation therefore is recommended.
== END 2022-05-23 03:37 | disposition home or self-care (01) ==
LOC: RT 03:36
PROVIDERS: PCP Nurse Practitioner Family; Visit Provider Student in an Organized Health Care Education/Training Program
DX: J43.9 Emphysema, unspecified (principal)
CPT/HCPCS: 94060; 94726; 94729

== ENCOUNTER 2022-06-04 01:15 | Outpatient (CLI) | payer MEDICARE, MEDICAID, SELFPAY ==
--- NOTE | 2022-06-04 07:00 | DI.CT_ITS ---
Exam(s) CT CHEST WO EXAM: CT CHEST WO CLINICAL HISTORY: fu COVID, PNA infiltrate,J18.9. TECHNIQUE: Imaging protocol: Axial computed tomography images were obtained and coronal and sagittal reformatted images were created and reviewed. COMPARISON: CT CT CHEST LUNG CANCER SCREEN from 02/27/2022 CR XR PORTABLE CHEST AP from 04/12/2022 FINDINGS: The examination is limited due to patient motion artifact. Tracheobronchial tree: Patent where visualized. Pulmonary parenchyma: Mild emphysematous changes are seen in the lungs. The left lung is nearly comp letely cleared compared to the chest x-ray from 04/12/2022. There is a small 1 cm area of consolidati on in the lateral aspect of the left lower lobe. There is some scarring seen in the left lower lobe. No other focal consolidating infiltrates are seen. There is no change in the 1 cm nodule associate d with the right minor fissure. No new pulmonary nodules are present. Mediastinum and Elina: No dominant adenopathy or fluid collection. The esophagus is unremarkable. Thyroid gland: Unremarkable. Pleura: No effusion or pneumothorax. Heart: The heart is not dilated. Moderate coronary artery calcification is present. No pericardial e ffusion. Aorta: Thoracic aorta non-dilated. Atherosclerosis is present. Upper abdomen: There is stable nodularity of the adrenal glands. The hypodensity in the left lobe o f the liver is unchanged. Lymph nodes: Within normal limits. Soft tissues: Unremarkable. Bones:Within normal limits for the patient's age. IMPRESSION: 1. Near complete clearing of the left lung since March 2022. There is a very small 1 cm focal area of consolidation in the lateral aspect of the left lower lobe. 2. Stable pulmonary nodule. 3. Mild pulmonary emphysema. 4. No acute pulmonary process. 5. Examination limited by patient motion artifact. RADIATION DOSE DELIVERED: 794.54mGy.cm Total DLP 794.54mGy.cm Total DLP DATA REPOSITORY: All CT scans at this facility are submitted to the National Radiology Data Registry (NRDR) Dose Index Registry (DIR) with the [employer] ([employer]). RADIATION OPTIMIZATION: All CT scans at this facility use at least one of these dose optimization te chniques: automated exposure control; mA and/or kV adjustment per patient size (includes targeted exa ms where dose is matched to clinical indication); or iterative reconstruction.
== END 2022-06-04 01:35 ==
LOC: DI 01:15
PROVIDERS: PCP Nurse Practitioner Family; Visit Provider Student in an Organized Health Care Education/Training Program
DX: J18.9 Pneumonia, unspecified organism (principal); J43.8 Other emphysema; J98.4 Other disorders of lung; R91.1 Solitary pulmonary nodule
CPT/HCPCS: 71250

== ENCOUNTER 2022-08-13 11:29 | Outpatient (RCR) | payer MEDICARE, MEDICAID, SELFPAY ==
[2022-08-13 12:18] LABS: Abs Immature Grans 0.03 10^3/uL (0.0-0.06); Absolute Basophil Count 0.03 10^3/uL (0.0-0.2); Absolute Eosinophil Count 0.04 10^3/uL (0.0-0.7); Absolute Lymphocyte Count 1.38 10^3/uL (1.2-3.4); Absolute Monocyte Count 0.67 10^3/uL (0.1-0.8); Absolute Neutrophil Count 6.79 10^3/uL (1.2-6.7); Basophils % 0.3; Eosinophils % 0.4; Immature Grans % 0.3; Lymphocytes % 15.4; MCH 28.6 pg (27.0-33.0); MCHC 32.1 % (32.0-36.0); MCV 89 fL (80-95); MPV 9.7 fL (8.0-11.0); Monocytes % 7.5; Neutrophils % 76.1; Platelet Count 269 10^3/uL (130-400); RDW 16.3 % (11.8-14.1); WBC 8.94 10^3/uL (4.4-10.8)
[2022-08-13 12:21] LABS: ESR 12 mm/hr (0-20)
[2022-08-13 12:58] LABS: Vitamin D 25 Total 31.7 ng/mL (30-100)
[2022-08-13 13:13] LABS: ALT 18 U/L (16-63); AST 19 U/L (15-37); Albumin 3.5 g/dL (3.4-5.0); Alkaline Phosphatase 77 U/L (46-116); BUN 13 mg/dL (7-18); Bilirubin, Total 0.5 mg/dL (0.2-1.0); CREATININE 0.8 mg/dL (0.70-1.30); Chloride 101 mmol/L (98-107); Estimated GFR 100.69 (mL/min/1.73m2); Glucose 125 mg/dL (74-106); Potassium 4.1 mmol/L (3.5-5.1); Sodium 139 mmol/L (136-145); TSH (W/Ref FT4) 0.61 uIU/mL (0.36-3.74); Total Protein 6.9 g/dL (6.4-8.2); Vitamin B12 231 pg/mL (193-986)
[2022-08-13 13:37] LABS: C-Reactive Protein 0.22 mg/dL (0.0-0.3)
== END 2022-08-14 23:59 | disposition home or self-care (01) ==
LOC: LBN 11:29
PROVIDERS: PCP Nurse Practitioner Family; Visit Provider Physician Assistant Surgical
DX: E11.9 Type 2 diabetes mellitus without complications (principal); E55.9 Vitamin D deficiency, unspecified
CPT/HCPCS: 80053; 82306; 85652; 82607; 84443; 85025; 86140

== ENCOUNTER → 2022-10-31 14:37 | Outpatient (BNVA) | payer MEDICARE, MEDICAID, SELFPAY | PROVIDERS: PCP Nurse Practitioner Family; Referring Provider Nurse Practitioner Family; Visit Provider Nurse Practitioner Gerontology | DX: R32 Unspecified urinary incontinence (principal); E11.9 Type 2 diabetes mellitus without complications; I10 Essential (primary) hypertension; J44.9 Chronic obstructive pulmonary disease, unspecified | CPT/HCPCS: 51798; 99213 ==

== ENCOUNTER 2022-12-05 17:49 | Outpatient (REF) | payer MEDICARE, MEDICAID, SELFPAY ==
[2022-12-05 16:48] LABS: Abs Immature Grans 0.02 10^3/uL (0.0-0.06); Absolute Basophil Count 0.04 10^3/uL (0.0-0.2); Absolute Lymphocyte Count 1.57 10^3/uL (1.2-3.4); Absolute Monocyte Count 0.63 10^3/uL (0.1-0.8); Basophils % 0.6; Eosinophils % 1.4; HCT 55.8 % (40.0-50.0); HGB 18.2 g/dL (13.5-17.5); Immature Grans % 0.3; Lymphocytes % 22.2; MCH 30.3 pg (27.0-33.0); MCHC 32.6 % (32.0-36.0); MCV 93 fL (80-95); MPV 10.2 fL (8.0-11.0); Monocytes % 8.9; Neutrophils % 66.6; Platelet Count 243 10^3/uL (130-400); RBC 6.01 10^6/uL (4.36-5.78); RDW 15.8 % (11.8-14.1); RDW-SD 54.1 fL; WBC 7.06 10^3/uL (4.4-10.8)
[2022-12-05 17:01] LABS: ALT 21 U/L (16-63); AST 21 U/L (15-37); Albumin 3.5 g/dL (3.4-5.0); Alkaline Phosphatase 87 U/L (46-116); Anion Gap 5.9 mmol/L (3-11); BUN 14 mg/dL (7-18); Bilirubin, Total 0.6 mg/dL (0.2-1.0); CO2 33.1 mmol/L (21.0-32.0); CREATININE 0.8 mg/dL (0.70-1.30); Calcium 9.5 mg/dL (8.5-10.1); Chloride 99 mmol/L (98-107); Estimated GFR 100.69 (mL/min/1.73m2); Glucose 100 mg/dL (74-106); Potassium 4.2 mmol/L (3.5-5.1); Sodium 138 mmol/L (136-145); Total Protein 6.8 g/dL (6.4-8.2)
== END 2022-12-05 17:50 | disposition home or self-care (01) ==
LOC: LBN 17:49
PROVIDERS: PCP Nurse Practitioner Family; Visit Provider Nurse Practitioner Family
DX: I10 Essential (primary) hypertension (principal); N39.46 Mixed incontinence
CPT/HCPCS: 80053; 85025

== ENCOUNTER 2022-12-23 16:42 | Emergency (ER) | payer MEDICARE, MEDICAID, SELFPAY ==
[2022-12-23] VITALS (12 sets, daily range): BP systolic 117–139; BP diastolic 71–77; PULSE 62–68; RESP 18–20; TEMP 36.8; O2SAT 84–94
--- NOTE | 2022-12-23 17:00 | DI.CT_ITS ---
Exam(s) CT HEAD WO EXAM: CT HEAD WO CLINICAL HISTORY: headache. TECHNIQUE: Imaging Protocol: Axial computed tomography images with coronal and sagittal reformatted images were created and reviewed COMPARISON: CT CT HEAD WO from 07/31/2020 FINDINGS: Ventricles and Extra axial spaces: Normal in size and morphology for the patient's age. Hemorrhage: None. Cerebral parenchyma: There is a normal mederos-white matter differentiation. Midline shift: None. Brainstem/Cerebellum: Normal. Calvarium: Normal. Visualized Paranasal sinuses/Mastoids: Clear. Soft Tissues: There is atherosclerosis present. IMPRESSION: 1. No acute intracranial process. 2. Findings were discussed with the emergency department at 5:45 p.m. on 12/23/2022. RADIATION DOSE DELIVERED: Total DLP DATA REPOSITORY: All CT scans at this facility are submitted to the National Radiology Data Registry (NRDR) Dose Index Registry (DIR) with the [employer] ([employer]). RADIATION OPTIMIZATION: All CT scans at this facility use at least one of these dose optimization te chniques: automated exposure control; mA and/or kV adjustment per patient size (includes targeted exa ms where dose is matched to clinical indication); or iterative reconstruction.
--- NOTE | 2022-12-23 17:02 | ED.GENADUL_ITS ---
Discharge Plan Disposition Patient Disposition: Home Condition: Stable Discharge Details Clinical Impression: Headache Primary Care Provider: MIMI PEREZ ED Provider: Barrington Georges Home Meds and New Rx's Prescriptions: Continued metformin 750 mg tablet extended release 24 hr 750 mg PO DAILY aripiprazole [Abilify] 5 mg tablet 10 mg PO DAILY Incruse Ellipta 62.5 mcg/actuation blister with device 1 inh inhalation DAILY melatonin 3 mg capsule 3 mg PO HS PRN ipratropium-albuterol 0.5 mg-3 mg(2.5 mg base)/3 mL solution for nebulization 3 ml inhalation Q4H PRN (Reason: wheezing) Qty: 540 12RF nicotine (polacrilex) 2 mg gum 2 mg buccal Q2H PRN atorvastatin 20 mg tablet 20 mg PO HS calcium carbonate-vitamin D3 600 mg-20 mcg (800 unit) tablet 1 tab PO DAILY (DME) blood-glucose meter Misc See Rx Instructions .Route Rx Instructions: As directed (DME) Disposable Brief Jumbo X-Large Misc See Rx Instructions .Route Rx Instructions: As directed (DME) Blood Glucose Test Strip See Rx Instructions .Route Rx Instructions: As directed (DME) lancets [OneTouch UltraSoft Lancets] Misc See Rx Instructions .Route Rx Instructions: As directed (DME) oxygen and supplies 2 liters 0 .Route .MEDSUPPLY nystatin 100,000 unit/gram powder 1 applic topical BID oxybutynin chloride 15 mg tablet extended release 24hr 30 mg PO QHS Qty: 180 3RF hydrocortisone 1 % Cream 1 applic topical BID budesonide-formoterol [Symbicort] 160-4.5 mcg/actuation HFA aerosol inhaler See Rx Instructions .ROUTE .COMPLEX Rx Instructions: 2 puffs BID prazosin 1 mg capsule 3 mg PO HS lisinopril 20 mg tablet 20 mg PO BID amlodipine 5 mg tablet 5 mg PO DAILY divalproex 500 mg tablet extended release 24 hr 500 mg PO HS cyanocobalamin (vitamin B-12) [Vitamin B-12] 5,000 mcg Tablet, Sublingual 5,000 mcg SUBLINGUAL DAILY Discharge Instructions Instructions: General Headache (ED) Additional Instructions: your blood work and cat scan did not show concerning findings follow up with your primary care provider within 1 week if you feel more ill, have new symptoms such as fevers or persistent vomiting return to the emergency department Medical Decision Making 62 yo male with hx of copd on home o2, htn, bipolar and lives at a [place] [facility], also migraines, who comes in with cc of headache for 2 days that has slowly been worsening, states it does feel like prior migraines. HE denies fevers, chills, vomiting, chest pain, dyspnea. He is caox4 on arrival, cn ii-xii intact, clear speech, no focal deficits. Suspect migraine, will obtain ct head to evaluate for hemorrhage and screening labs. He is 93% on his 4L NC that he's normally on. He has no meningismus and no fevers so doubt purchasing administrative assistant infection. pt's labs and ct unremarkable, he states pain is significantly better but would like something additional for pain. Will order toradol and if improved plan for d/c, discussed LP and given low suspicion for purchasing administrative assistant infection and subarachnoid and he declines this which I feel is reasonable, he will f/u with his pcp and return precautions given Differential Diagnosis Differential Diagnosis: migraine, hemorrhage Medical Records Medical records reviewed: Yes I reviewed the patient's medical records. Imaging Data Radiologic Study: Attestation: I personally reviewed and interpreted this imaging study as follows: Imaging: CT Scan Radiologist's impression: no acute findings HPI General Date/Time Provider Initiated Documentation: 12/23/22 16:43 . Limitations to Documentation: no limitations . Information obtained by: patient . History of Present Illness 62 year old M presents to the emergency department with the chief complaint of headache, d escribed as moderate, Quality is described as sharp, Patient started experiencing this day(s) (2) and it has been constant. No relieving factors improve symptom(s), No exacerbating factors reported . Patient notes no other symptoms.; denies chest pain, fever/chills and shortness of breath. Patient did receive the following treatments prior to arrival, none Related Data Home Medications Medication Instructions Recorded Confirmed hydrocortisone 1 % topical cream 1 applic topical BID 08/01/20 12/23/22 aripiprazole 5 mg tablet (Abilify) 10 mg PO DAILY 03/13/21 12/23/22 metformin 750 mg tablet,extended 750 mg PO DAILY 03/13/21 12/23/22 release 24 hr blood sugar diagnostic (Blood 10/23/21 05/15/22 Glucose Test strips) blood-glucose meter 10/23/21 05/15/22 diaper,brief,adult,disposable 10/23/21 05/15/22 (Disposable Brief Jumbo X-Large) lancets (OneTouch UltraSoft 10/23/21 05/15/22 Lancets) nystatin 100,000 unit/gram topical 1 applic topical BID 10/23/21 12/23/22 powder oxygen and supplies 2 liters 10/23/21 10/22/22 umeclidinium 62.5 mcg/actuation 1 inh inhalation DAILY 02/05/22 12/23/22 blister powder for inhalation (Incruse Ellipta) budesonide-formoterol HFA 160 See Rx Instructions .Route .COMPLEX 04/12/22 12/23/22 mcg-4.5 mcg/actuation aerosol inhaler (Symbicort) ipratropium 0.5 mg-albuterol 3 mg 3 ml inhalation Q4H PRN wheezing 05/15/22 12/23/22 (2.5 mg base)/3 mL nebulization #540 mL soln melatonin 3 mg capsule 3 mg PO HS PRN 05/15/22 12/23/22 atorvastatin 20 mg tablet 20 mg PO HS 08/13/22 12/23/22 calcium carbonate 600 mg-vitamin 1 tab PO DAILY 08/13/22 12/23/22 D3 20 mcg (800 unit) tablet nicotine (polacrilex) 2 mg gum 2 mg buccal Q2H PRN 10/22/22 12/23/22 oxybutynin chloride 15 mg 30 mg PO QHS #180 tabs 11/26/22 12/23/22 tablet,extended release 24 hr amlodipine 5 mg tablet 5 mg PO DAILY 12/23/22 12/23/22 cyanocobalamin (vitamin B-12) 5,000 mcg sublingual DAILY 12/23/22 12/23/22 5,000 mcg sublingual tablet (Vitamin B-12) divalproex 500 mg tablet,extended 500 mg PO HS 12/23/22 12/23/22 release 24 hr lisinopril 20 mg tablet 20 mg PO BID 12/23/22 12/23/22 prazosin 1 mg capsule 3 mg PO HS 12/23/22 12/23/22 Previous Rx's Medication Instructions Recorded ipratropium 0.5 mg-albuterol 3 mg 3 ml inhalation Q4H PRN wheezing 05/15/22 (2.5 mg base)/3 mL nebulization #540 mL soln oxybutynin chloride 15 mg 30 mg PO QHS #180 tabs 11/26/22 tablet,extended release 24 hr Allergies Allergy/AdvReac Type Severity Reaction Status Date / Time Penicillins Allergy Severe Anaphylaxis Unverified 10/31/22 14:43 dextromethorphan Allergy Mild Skin Rash Unverified 10/31/22 14:43 [From Dimetapp Cold-Congestion] diphenhydramine Allergy Mild Skin Rash Unverified 10/31/22 14:43 [From Dimetapp Cold-Congestion] guaifenesin Allergy Mild Skin Rash Unverified 10/31/22 14:43 [From Dimetapp Cold-Congestion] phenylephrine Allergy Mild Skin Rash Unverified 10/31/22 14:43 [From Dimetapp Cold-Congestion] pseudoephedrine Allergy Mild Skin Rash Unverified 10/31/22 14:43 [From Dimetapp Cold-Congestion] bupropion [From Wellbutrin] AdvReac Intermediate Other (See Unverified 10/31/22 14:43 Comment) General Stated Complaint: Headache SANTA: 3 Review of Systems All systems reviewed & are unremarkable except as noted in HPI and below Constitutional Constitutional: Denies chills, Denies fever(s) and Denies weakness Eyes Eyes: Denies loss of vision Cardiovascular Cardiovascular: Denies chest pain and Denies dyspnea Respiratory Respiratory: Denies cough and Denies dyspnea Gastrointestinal Gastrointestinal: Denies abdominal pain, Denies nausea and Denies vomiting Musculoskeletal Musculoskeletal: Denies joint swelling Neurologic Neurologic: Denies loss of vision and Denies weakness PFSH All Active Problems (Updated 12/23/22 @ 18:10 by Barrington Georges MD) Headache (Acute) Seborrheic dermatitis (Acute) COVID-19 (Acute) Altered mental status (Acute) Septic shock (Acute) Right bundle branch block (Acute) Elevated troponin (Acute) Elevated LFTs (Acute) MICHAEL (acute kidney injury) (Acute) Hyperkalemia (Acute) Lactic acidosis (Acute) COVID (Acute) Respiratory failure with hypoxia and hypercapnia (Acute) Nicotine dependence, cigarettes, uncomplicated (Acute) Respiratory failure with hypoxia (Acute) Hypoxemia (Acute) Sleep apnea (Acute) Depression (Chronic) Tobacco dependence (Acute) Supplemental oxygen dependent (Acute) Bipolar 1 disorder (Acute) Obesity (Chronic) Incontinence of urine (Acute) Diabetes (Chronic) DVT prophylaxis (Acute) HTN (hypertension) (Chronic) Obstructive sleep apnea (Chronic) COPD (chronic obstructive pulmonary disease) (Chronic) Suicidal ideations (Acute) Hallucinations (Acute) Hypertension (Chronic) Medical History Hyperlipidemia Obesity (BMI 30-39.9) Palliative care patient Schizophrenia Family History Other Adopted Social History Smoking/Tobacco Use Status: Current every day Tobacco Type: cigarettes Smoking packs per day: 0 Smoking cigarettes per day: 0.0 Years smoked: 30 Smoking pack- years: 0.00 Tobacco: How many years used: 30 Smoking risk assessment performed?: Yes Alcohol Intake: former Drug use: Never Substance use type: does not use Caregiver/Support person: No Household members: none Housing: assisted living facility Number of Children: 0 Communication Needs: Hard of Hearing and Corrective Lenses Education Level: high school Do you need help understanding health information?: Always current occupation: disabled due to mental illness Pets and animals: No Current gender identity: male What is your relationship status?: never How often do you talk on the phone with friends or family?: never How often do you get together with friends or relatives?: never Panel score (0-1 are the most socially isolated patients): 0 What type of physical activity do you participate in: none and sedentary lifestyle Frequency: does not exercise Special mannie needs: No Seatbelt use: always Do you feel safe at home: No (pt states feeling unsafe but cannot explain why.) Do you feel safe in your relationship?: Yes Exam Const General: no acute distress Orientation: alert HENMT Head: normal to inspection Ears: external ears normal General nose exam: external nose normal Mouth: moist mucous membranes Eyes General: appearance normal, both eyes and all related structures Neck Neck: normal visual inspection Resp Effort & Inspection: normal respiratory effort and able to speak in complete sen tences Cardio Rate: regular rate Skin General skin exam: no rashes or lesions noted Neuro General: patient alert and patient oriented x3 Extrem General: normal to inspection Psych Mental Status: mental status grossly normal Course Vital Signs Vital signs: Vital Signs Temperature 36.8 C 12/23/22 16:48 Pulse 68 12/23/22 16:48 Respiratory Rate 20 12/23/22 16:48 Blood Pressure 139/75 12/23/22 16:48 Pulse Oximetry 84 L 12/23/22 16:48 Temperature 36.8 C 12/23/22 17:00 Temperature Source Skin 12/23/22 17:00 Pulse 68 12/23/22 17:00 Respiratory Rate 20 12/23/22 17:00 Respiratory Effort Normal, Non-Labored 12/23/22 16:57 Blood Pressure 139/75 12/23/22 17:00 Blood Pressure Position Sitting 12/23/22 17:00 Pulse Oximetry 90 L 12/23/22 17:00 Oxygen Delivery Method Nasal Cannula 12/23/22 17:00 Oxygen Flow Rate 4 12/23/22 17:00 Pain Level 8 12/23/22 17:00
[2022-12-23] MEDS: Prochlorperazine 10 MG/2 ML VIAL IVP (17:04)
[2022-12-23] MEDS: Normal Saline 1,000 ML 1000 ML IV (17:04)
[2022-12-23 17:13] LABS: Abs Immature Grans 0.02 10^3/uL (0.0-0.06); Absolute Basophil Count 0.02 10^3/uL (0.0-0.2); Absolute Eosinophil Count 0.19 10^3/uL (0.0-0.7); Absolute Lymphocyte Count 1.32 10^3/uL (1.2-3.4); Absolute Monocyte Count 0.81 10^3/uL (0.1-0.8); Absolute Neutrophil Count 5.89 10^3/uL (1.2-6.7); Basophils % 0.2; Eosinophils % 2.3; HGB 17.8 g/dL (13.5-17.5); Immature Grans % 0.2; MCHC 31.8 % (32.0-36.0); MCV 94 fL (80-95); MPV 9.3 fL (8.0-11.0); Monocytes % 9.8; Neutrophils % 71.5; Platelet Count 265 10^3/uL (130-400); RBC 5.94 10^6/uL (4.36-5.78); RDW 15.8 % (11.8-14.1); RDW-SD 54.8 fL; WBC 8.25 10^3/uL (4.4-10.8)
[2022-12-23 17:31] LABS: ALT 16 U/L (16-63); AST 11 U/L (15-37); Albumin 3.3 g/dL (3.4-5.0); Alkaline Phosphatase 99 U/L (46-116); Anion Gap 3.5 mmol/L (3-11); BUN 13 mg/dL (7-18); Bilirubin, Total 0.4 mg/dL (0.2-1.0); CO2 36.5 mmol/L (21.0-32.0); CREATININE 0.8 mg/dL (0.70-1.30); Calcium 9.4 mg/dL (8.5-10.1); Chloride 100 mmol/L (98-107); Estimated GFR 100.69 (mL/min/1.73m2); Glucose 105 mg/dL (74-106); Magnesium 1.8 mg/dL (1.8-2.4); Sodium 140 mmol/L (136-145)
[2022-12-23 17:37] LABS: PTT Activated 28.5 sec (21.5-31.9); Prothrombin Time 11.7 sec (9.3-11.0)
[2022-12-23 17:38] LABS: INR 1.1 (0.9-1.1)
[2022-12-23] MEDS: Ketorolac 15 MG/ML VIAL IVP (18:13)
--- NOTE | 2022-12-23 18:15 | NUR.NOTE ---
Nursing Note: attempted to call pts ride with number provided, no answer, mailbox full so unable to leave message.
== END 2022-12-23 18:55 | disposition home or self-care (01) ==
PROVIDERS: Emergency Provider Emergency Medicine; PCP Nurse Practitioner Family
DX: R51.9 Headache, unspecified (principal)
CPT/HCPCS: 80053; 96374; 96375; 99284; 70450; 83735; 85025; 85610; 85730; 99283; J0780; J1885

== ENCOUNTER 2022-12-25 14:39 | Inpatient (IN) | payer MEDICARE, MEDICAID, SELFPAY ==
[2022-12-25] VITALS (73 sets, daily range): BP systolic 110–160; BP diastolic 42–116; PULSE 53–103; RESP 14–27; TEMP 37; O2SAT 77–97
--- NOTE | 2022-12-25 14:30 | RT.EKG_ITS ---
APPROVED REPORT Exam: Resting ECG Reason for Exam: Hypoxia Patient Location: E HR:72 bpm ECG Measurements Heart Rate 72 AXIS MO 131 P 78 QRSd 146 QRS -37 QT 390 T 247 QTc 427 Conclusion Sinus rhythm...normal P axis, V-rate 60- 99 Right bundle branch block...QRSd>120, terminal axis(90,270) Anteroseptal infarct, age indeterminate...Q >35mS, T neg, V1-V2
[2022-12-25 15:13] LABS: Abs Immature Grans 0.02 10^3/uL (0.0-0.06); Absolute Basophil Count 0.02 10^3/uL (0.0-0.2); Absolute Eosinophil Count 0.11 10^3/uL (0.0-0.7); Absolute Lymphocyte Count 1.49 10^3/uL (1.2-3.4); Absolute Monocyte Count 0.82 10^3/uL (0.1-0.8); Absolute Neutrophil Count 4.03 10^3/uL (1.2-6.7); Basophils % 0.3; Eosinophils % 1.7; HGB 16.8 g/dL (13.5-17.5); Immature Grans % 0.3; MCH 29.6 pg (27.0-33.0); MCHC 31.7 % (32.0-36.0); MCV 94 fL (80-95); Monocytes % 12.6; Neutrophils % 62.1; Platelet Count 261 10^3/uL (130-400); RBC 5.67 10^6/uL (4.36-5.78); RDW 15.5 % (11.8-14.1); RDW-SD 53.2 fL; WBC 6.49 10^3/uL (4.4-10.8)
[2022-12-25 15:15] LABS: BE (Venous) 12 mmol/L (-2-3); HCO3 (Venous) 37 mmol/L (23-28); O2 Sat (Venous) 76 %; TCO2 (Venous) 33 mmol/L (24-29); pH (Venous) 7.35 (7.31-7.41); pO2 (Venous) 43 mmHg
[2022-12-25 15:19] LABS: pCO2 (Venous) 68 mmHg (41-51)
[2022-12-25 15:27] LABS: Ammonia 39 umol/L (11-32)
[2022-12-25 15:34] LABS: ALT 14 U/L (16-63); AST 10 U/L (15-37); Alkaline Phosphatase 89 U/L (46-116); Anion Gap 2.2 mmol/L (3-11); BUN 15 mg/dL (7-18); Bilirubin, Total 0.3 mg/dL (0.2-1.0); CO2 34.8 mmol/L (21.0-32.0); CREATININE 0.7 mg/dL (0.70-1.30); Calcium 9.1 mg/dL (8.5-10.1); Chloride 104 mmol/L (98-107); Estimated GFR 104.83 (mL/min/1.73m2); Glucose 115 mg/dL (74-106); Magnesium 1.8 mg/dL (1.8-2.4); Potassium 4.3 mmol/L (3.5-5.1); Sodium 141 mmol/L (136-145); Total Protein 6.4 g/dL (6.4-8.2)
[2022-12-25 15:46] LABS: ETHANOL BLOOD < 3.0 mg/dL (<10)
[2022-12-25 16:42] LABS: Bilirubin Negative (Negative); Blood Negative (Negative); Clarity Clear (Clear); Glucose Negative (Negative); Ketones Negative (Negative); Leukocyte Esterase Negative (Negative); Nitrite Negative (Negative); Specific Gravity 1.025 (1.005-1.025); Urobilinogen 0.2 mg/dL (Up to 0.2)
[2022-12-25 16:48] LABS: Bacteria Negative HPF (Negative); C & S Indicated? No; Crystals Negative HPF (Negative); Epithelial Cells Rare HPF (Negative); Mucus Negative (Negative); RBC Negative HPF (0-2); WBC 0-2 HPF (0-5)
--- NOTE | 2022-12-25 16:48 | ED.GENADUL_ITS ---
Discharge Plan Discharge Details Chief Complaint: GenMedical Primary Care Provider: MIMI PEREZ ED Provider: Maxi Shepherd Home Meds and New Rx's Prescriptions: No Action metformin 750 mg tablet extended release 24 hr 750 mg PO DAILY aripiprazole [Abilify] 5 mg tablet 10 mg PO DAILY Incruse Ellipta 62.5 mcg/actuation blister with device 1 inh inhalation DAILY melatonin 3 mg capsule 3 mg PO HS PRN ipratropium-albuterol 0.5 mg-3 mg(2.5 mg base)/3 mL solution for nebulization 3 ml inhalation Q4H PRN (Reason: wheezing) Qty: 540 12RF nicotine (polacrilex) 2 mg gum 2 mg buccal Q2H PRN atorvastatin 20 mg tablet 20 mg PO HS calcium carbonate-vitamin D3 600 mg-20 mcg (800 unit) tablet 1 tab PO DAILY (DME) blood-glucose meter Misc See Rx Instructions .Route Rx Instructions: As directed (DME) Disposable Brief Jumbo X-Large Misc See Rx Instructions .Route Rx Instructions: As directed (DME) Blood Glucose Test Strip See Rx Instructions .Route Rx Instructions: As directed (DME) lancets [OneTouch UltraSoft Lancets] Misc See Rx Instructions .Route Rx Instructions: As directed (DME) oxygen and supplies 2 liters 0 .Route .MEDSUPPLY nystatin 100,000 unit/gram powder 1 applic topical BID oxybutynin chloride 15 mg tablet extended release 24hr 30 mg PO QHS Qty: 180 3RF hydrocortisone 1 % Cream 1 applic topical BID budesonide-formoterol [Symbicort] 160-4.5 mcg/actuation HFA aerosol inhaler See Rx Instructions .ROUTE .COMPLEX Rx Instructions: 2 puffs BID prazosin 1 mg capsule 3 mg PO HS lisinopril 20 mg tablet 20 mg PO BID amlodipine 5 mg tablet 5 mg PO DAILY divalproex 500 mg tablet extended release 24 hr 500 mg PO HS cyanocobalamin (vitamin B-12) [Vitamin B-12] 5,000 mcg Tablet, Sublingual 5,000 mcg SUBLINGUAL DAILY Medical Decision Making 62-year-old male with multiple medical problems including history of schizophrenia, bipolar disorder, COPD on chronic home O2, here with suicidal and homicidal thoughts expressed to staff at [facility]. Patient is not actively hallucinating. He does seem a little confused at times during exam. Patient is not actively homicidal but does have suicidal thoughts with no plan. Medical screening exam was performed --patient does have hypercarbia, this is likely chronic issue related to his chronic COPD, he is compensating. Mild elevation of ammonia. No acute medical condition identified. Plan for crisis screening. Medical Records Medical records narrative: CT of the head was obtained 12/23/2022, interpreted by radiology as: No acute intracranial process.? Lab Data Lab results reviewed: Yes I reviewed the patient's lab results. Labs: Laboratory Tests Range/Units 12/25/22 12/25/22 12/25/22 15:05 15:05 15:05 WBC (4.4-10.8) 10^3/uL RBC (4.36-5.78) 10^6/uL Hgb (13.5-17.5) g/dL Hct (40.0-50.0) % MCV (80-95) fL MCH (27.0-33.0) pg MCHC (32.0-36.0) % RDW (11.8-14.1) % Plt Count (130-400) 10^3/uL MPV (8.0-11.0) fL Immature Gran % Neutrophils % Lymphocytes % Monocytes % Eosinophils % Basophils % Nucleated RBC % (0.0-0.3) % Absolute Neutrophils (1.2-6.7) 10^3/uL Absolute Lymphocytes (1.2-3.4) 10^3/uL Absolute Monocytes (0.1-0.8) 10^3/uL Absolute Eosinophils (0.0-0.7) 10^3/uL Absolute Basophils (0.0-0.2) 10^3/uL VBG pH (7.31-7.41) VBG pCO2 (41-51) mmHg VBG pO2 mmHg VBG HCO3 (23-28) mmol/L VBG Total CO2 (24-29) mmol/L VBG O2 Saturation % VBG Base Excess (-2-3) mmol/L Sodium (136-145) mmol/L 141 Potassium (3.5-5.1) mmol/L 4.3 Chloride (98-107) mmol/L 104 Carbon Dioxide (21.0-32.0) mmol/L 34.8 H Anion Gap (3-11) mmol/L 2.2 L BUN (7-18) mg/dL 15 Creatinine (0.70-1.30) mg/dL 0.7 Est GFR (CKD-EPI 2020) (mL/min/1.73m2) 104.83 Glucose (74-106) mg/dL 115 H Calcium (8.5-10.1) mg/dL 9.1 Magnesium (1.8-2.4) mg/dL 1.8 Total Bilirubin (0.2-1.0) mg/dL 0.3 AST (15-37) U/L 10 L ALT (16-63) U/L 14 L Alkaline Phosphatase (46-116) U/L 89 Ammonia (11-32) umol/L 39 H Total Protein (6.4-8.2) g/dL 6.4 Albumin (3.4-5.0) g/dL 3.0 L TSH (0.36-3.74) uIU/mL 0.90 Urine Color (Yellow) Urine Clarity (Clear) Urine pH (5-8) Ur Specific [place] (1.005-1.025) Urine Protein (Negative) mg/dL Urine Ketones (Negative) mg/dL Urine Blood (Negative) Urine Nitrite (Negative) Urine Bilirubin (Negative) Urine Urobilinogen (Up to 0.2) mg/dL Ur Leukocyte Esterase (Negative) Urine RBC (0-2) HPF Urine WBC (0-5) HPF Ur Epithelial Cells (Negative) HPF Urine Crystals (Negative) HPF Urine Bacteria (Negative) HPF Urine Mucus (Negative) Ur Culture Indicated? Urine Glucose (Negative) mg/dL Urine Opiates Screen (Negative) Urine Methadone Screen (Negative) Ur Barbiturates Screen (Negative) Ur Tricyclics Screen (Negative) Ur Amphetamines Screen (Negative) U Benzodiazepines Scrn (Negative) Urine Cocaine Screen (Negative) Ur THC Screen (Negative) Ethyl Alcohol (<10) mg/dL < 3.0 Range/Units 12/25/22 12/25/22 12/25/22 15:05 15:12 16:30 WBC (4.4-10.8) 10^3/uL 6.49 RBC (4.36-5.78) 10^6/uL 5.67 Hgb (13.5-17.5) g/dL 16.8 Hct (40.0-50.0) % 53.0 H MCV (80-95) fL 94 MCH (27.0-33.0) pg 29.6 MCHC (32.0-36.0) % 31.7 L RDW (11.8-14.1) % 15.5 H Plt Count (130-400) 10^3/uL 261 MPV (8.0-11.0) fL 9.0 Immature Gran % 0.3 Neutrophils % 62.1 Lymphocytes % 23.0 Monocytes % 12.6 Eosinophils % 1.7 Basophils % 0.3 Nucleated RBC % (0.0-0.3) % 0.0 Absolute Neutrophils (1.2-6.7) 10^3/uL 4.03 Absolute Lymphocytes (1.2-3.4) 10^3/uL 1.49 Absolute Monocytes (0.1-0.8) 10^3/uL 0.82 H Absolute Eosinophils (0.0-0.7) 10^3/uL 0.11 Absolute Basophils (0.0-0.2) 10^3/uL 0.02 VBG pH (7.31-7.41) 7.35 VBG pCO2 (41-51) mmHg 68 H* VBG pO2 mmHg 43 VBG HCO3 (23-28) mmol/L 37 H VBG Total CO2 (24-29) mmol/L 33 H VBG O2 Saturation % 76 VBG Base Excess (-2-3) mmol/L 12 H Sodium (136-145) mmol/L Potassium (3.5-5.1) mmol/L Chloride (98-107) mmol/L Carbon Dioxide (21.0-32.0) mmol/L Anion Gap (3-11) mmol/L BUN (7-18) mg/dL Creatinine (0.70-1.30) mg/dL Est GFR (CKD-EPI 2020) (mL/min/1.73m2) Glucose (74-106) mg/dL Calcium (8.5-10.1) mg/dL Magnesium (1.8-2.4) mg/dL Total Bilirubin (0.2-1.0) mg/dL AST (15-37) U/L ALT (16-63) U/L Alkaline Phosphatase (46-116) U/L Ammonia (11-32) umol/L Total Protein (6.4-8.2) g/dL Albumin (3.4-5.0) g/dL TSH (0.36-3.74) uIU/mL Urine Color (Yellow) Urine Clarity (Clear) Urine pH (5-8) Ur Specific [place] (1.005-1.025) Urine Protein (Negative) mg/dL Urine Ketones (Negative) mg/dL Urine Blood (Negative) Urine Nitrite (Negative) Urine Bilirubin (Negative) Urine Urobilinogen (Up to 0.2) mg/dL Ur Leukocyte Esterase (Negative) Urine RBC (0-2) HPF Urine WBC (0-5) HPF Ur Epithelial Cells (Negative) HPF Urine Crystals (Negative) HPF Urine Bacteria (Negative) HPF Urine Mucus (Negative) Ur Culture Indicated? Urine Glucose (Negative) mg/dL Urine Opiates Screen (Negative) Negative Urine Methadone Screen (Negative) Negative Ur Barbiturates Screen (Negative) Negative Ur Tricyclics Screen (Negative) Negative Ur Amphetamines Screen (Negative) Negative U Benzodiazepines Scrn (Negative) Negative Urine Cocaine Screen (Negative) Negative Ur THC Screen (Negative) Negative Ethyl Alcohol (<10) mg/dL Range/Units 12/25/22 16:30 WBC (4.4-10.8) 10^3/uL RBC (4.36-5.78) 10^6/uL Hgb (13.5-17.5) g/dL Hct (40.0-50.0) % MCV (80-95) fL MCH (27.0-33.0) pg MCHC (32.0-36.0) % RDW (11.8-14.1) % Plt Count (130-400) 10^3/uL MPV (8.0-11.0) fL Immature Gran % Neutrophils % Lymphocytes % Monocytes % Eosinophils % Basophils % Nucleated RBC % (0.0-0.3) % Absolute Neutrophils (1.2-6.7) 10^3/uL Absolute Lymphocytes (1.2-3.4) 10^3/uL Absolute Monocytes (0.1-0.8) 10^3/uL Absolute Eosinophils (0.0-0.7) 10^3/uL Absolute Basophils (0.0-0.2) 10^3/uL VBG pH (7.31-7.41) VBG pCO2 (41-51) mmHg VBG pO2 mmHg VBG HCO3 (23-28) mmol/L VBG Total CO2 (24-29) mmol/L VBG O2 Saturation % VBG Base Excess (-2-3) mmol/L Sodium (136-145) mmol/L Potassium (3.5-5.1) mmol/L Chloride (98-107) mmol/L Carbon Dioxide (21.0-32.0) mmol/L Anion Gap (3-11) mmol/L BUN (7-18) mg/dL Creatinine (0.70-1.30) mg/dL Est GFR (CKD-EPI 2020) (mL/min/1.73m2) Glucose (74-106) mg/dL Calcium (8.5-10.1) mg/dL Magnesium (1.8-2.4) mg/dL Total Bilirubin (0.2-1.0) mg/dL AST (15-37) U/L ALT (16-63) U/L Alkaline Phosphatase (46-116) U/L Ammonia (11-32) umol/L Total Protein (6.4-8.2) g/dL Albumin (3.4-5.0) g/dL TSH (0.36-3.74) uIU/mL Urine Color (Yellow) Yellow Urine Clarity (Clear) Clear Urine pH (5-8) 6.0 Ur Specific [place] (1.005-1.025) 1.025 Urine Protein (Negative) mg/dL 30 H Urine Ketones (Negative) mg/dL Negative Urine Blood (Negative) Negative Urine Nitrite (Negative) Negative Urine Bilirubin (Negative) Negative Urine Urobilinogen (Up to 0.2) mg/dL 0.2 Ur Leukocyte Esterase (Negative) Negative Urine RBC (0-2) HPF Negative Urine WBC (0-5) HPF 0-2 Ur Epithelial Cells (Negative) HPF Rare Urine Crystals (Negative) HPF Negative Urine Bacteria (Negative) HPF Negative Urine Mucus (Negative) Negative Ur Culture Indicated? No Urine Glucose (Negative) mg/dL Negative Urine Opiates Screen (Negative) Urine Methadone Screen (Negative) Ur Barbiturates Screen (Negative) Ur Tricyclics Screen (Negative) Ur Amphetamines Screen (Negative) U Benzodiazepines Scrn (Negative) Urine Cocaine Screen (Negative) Ur THC Screen (Negative) Ethyl Alcohol (<10) mg/dL HPI General Mode of arrival: EMS . Date/Time Provider Initiated Documentation: 12/25/22 14:48 . Limitations to Documentation: no limitations . Information obtained by: patient and EMS . HPI Narrative: 62-year-old male with history of schizophrenia, bipolar 1 disorder, sent here for suicidal SI and HI thoughts. Patient sent by [facility] outpatient clinic. Staff note concern for potential urinary tract infection. Patient does have chronic urinary incontinence. On my exam, patient denies homicidal thoughts. He does have suicidal thoughts with no specific plan. Patient does note increased auditory and visual hallucinations recently. Patient denies drug or alcohol use. Related Data Home Medications Medication Instructions Recorded Confirmed hydrocortisone 1 % topical cream 1 applic topical BID 08/01/20 12/25/22 aripiprazole 5 mg tablet (Abilify) 10 mg PO DAILY 03/13/21 12/25/22 metformin 750 mg tablet,extended 750 mg PO DAILY 03/13/21 12/25/22 release 24 hr blood sugar diagnostic (Blood 10/23/21 12/25/22 Glucose Test strips) blood-glucose meter 10/23/21 12/25/22 diaper,brief,adult,disposable 10/23/21 12/25/22 (Disposable Brief Jumbo X-Large) lancets (OneTouch UltraSoft 10/23/21 12/25/22 Lancets) nystatin 100,000 unit/gram topical 1 applic topical BID 10/23/21 12/25/22 powder oxygen and supplies 2 liters 10/23/21 12/25/22 umeclidinium 62.5 mcg/actuation 1 inh inhalation DAILY 02/05/22 12/25/22 blister powder for inhalation (Incruse Ellipta) budesonide-formoterol HFA 160 See Rx Instructions .Route .COMPLEX 04/12/22 12/25/22 mcg-4.5 mcg/actuation aerosol inhaler (Symbicort) ipratropium 0.5 mg-albuterol 3 mg 3 ml inhalation Q4H PRN wheezing 05/15/22 12/25/22 (2.5 mg base)/3 mL nebulization #540 mL soln melatonin 3 mg capsule 3 mg PO HS PRN 05/15/22 12/25/22 atorvastatin 20 mg tablet 20 mg PO HS 08/13/22 12/25/22 calcium carbonate 600 mg-vitamin 1 tab PO DAILY 08/13/22 12/25/22 D3 20 mcg (800 unit) tablet nicotine (polacrilex) 2 mg gum 2 mg buccal Q2H PRN 10/22/22 12/25/22 oxybutynin chloride 15 mg 30 mg PO QHS #180 tabs 11/26/22 12/25/22 tablet,extended release 24 hr amlodipine 5 mg tablet 5 mg PO DAILY 12/23/22 12/25/22 cyanocobalamin (vitamin B-12) 5,000 mcg sublingual DAILY 12/23/22 12/25/22 5,000 mcg sublingual tablet (Vitamin B-12) divalproex 500 mg tablet,extended 500 mg PO HS 12/23/22 12/25/22 release 24 hr lisinopril 20 mg tablet 20 mg PO BID 12/23/22 12/25/22 prazosin 1 mg capsule 3 mg PO HS 12/23/22 12/25/22 Previous Rx's Medication Instructions Recorded ipratropium 0.5 mg-albuterol 3 mg 3 ml inhalation Q4H PRN wheezing 05/15/22 (2.5 mg base)/3 mL nebulization #540 mL soln oxybutynin chloride 15 mg 30 mg PO QHS #180 tabs 11/26/22 tablet,extended release 24 hr Allergies Allergy/AdvReac Type Severity Reaction Status Date / Time Penicillins Allergy Severe Anaphylaxis Unverified 12/25/22 14:44 dextromethorphan Allergy Mild Skin Rash Unverified 12/25/22 14:44 [From Dimetapp Cold-Congestion] diphenhydramine Allergy Mild Skin Rash Unverified 12/25/22 14:44 [From Dimetapp Cold-Congestion] guaifenesin Allergy Mild Skin Rash Unverified 12/25/22 14:44 [From Dimetapp Cold-Congestion] phenylephrine Allergy Mild Skin Rash Unverified 12/25/22 14:44 [From Dimetapp Cold-Congestion] pseudoephedrine Allergy Mild Skin Rash Unverified 12/25/22 14:44 [From Dimetapp Cold-Congestion] bupropion [From Wellbutrin] AdvReac Intermediate Other (See Unverified 12/25/22 14:44 Comment) General Stated Complaint: GenMedical SANTA: 3 Review of Systems All systems reviewed & are unremarkable except as noted in HPI and below Constitutional Constitutional: Denies fever(s) Genitourinary Comments: Chronic diaper use with incontinence Neurologic Comments: Chronic broken speech Psychiatric Psychiatric: Reports as per HPI PFSH All Active Problems Headache (Acute) Seborrheic dermatitis (Acute) COVID-19 (Acute) Altered mental status (Acute) Septic shock (Acute) Right bundle branch block (Acute) Elevated troponin (Acute) Elevated LFTs (Acute) MICHAEL (acute kidney injury) (Acute) Hyperkalemia (Acute) Lactic acidosis (Acute) COVID (Acute) Respiratory failure with hypoxia and hypercapnia (Acute) Nicotine dependence, cigarettes, uncomplicated (Acute) Respiratory failure with hypoxia (Acute) Hypoxemia (Acute) Sleep apnea (Acute) Depression (Chronic) Tobacco dependence (Acute) Supplemental oxygen dependent (Acute) Bipolar 1 disorder (Acute) Obesity (Chronic) Incontinence of urine (Acute) Diabetes (Chronic) DVT prophylaxis (Acute) HTN (hypertension) (Chronic) Obstructive sleep apnea (Chronic) COPD (chronic obstructive pulmonary disease) (Chronic) Suicidal ideations (Acute) Hallucinations (Acute) Hypertension (Chronic) Medical History Hyperlipidemia Obesity (BMI 30-39.9) Palliative care patient Schizophrenia Family History Other Adopted Social History Smoking/Tobacco Use Status: Current every day Tobacco Type: cigarettes Smoking packs per day: 0 Smoking cigarettes per day: 0.0 Years smoked: 30 Smoking pack- years: 0.00 Tobacco: How many years used: 30 Smoking risk assessment performed?: Yes Alcohol Intake: former Drug use: Never Substance use type: does not use Caregiver/Support person: No Household members: none Housing: assisted living facility Number of Children: 0 Communication Needs: Hard of Hearing and Corrective Lenses Education Level: high school Do you need help understanding health information?: Always current occupation: disabled due to mental illness Pets and animals: No Current gender identity: male What is your relationship status?: never How often do you talk on the phone with friends or family?: never How often do you get together with friends or relatives?: never Panel score (0-1 are the most socially isolated patients): 0 What type of physical activity do you participate in: none and sedentary lifestyle Frequency: does not exercise Special mannie needs: No Seatbelt use: always Do you feel safe at home: No (pt states feeling unsafe but cannot explain why.) Do you feel safe in your relationship?: Yes Exam Const General: cooperative and no acute distress HENMT Mouth: moist mucous membranes Eyes Conjunctivae: normal conjunctivae Sclera: normal sclerae Neck Neck: trachea midline and supple Resp Auscultation: clear to auscultation bilaterally, no rales, no rhonchi and no wheezes Cardio Rate: regular rate and not tachycardic Rhythm: regular rhythm GI Palpation: soft, not firm, no guarding, no masses, not rigid and nontender Skin General skin exam: no rashes or lesions noted Neuro General: patient alert, patient awake and tone normal Motor: strength 5/5 throughout Sensory Exam: no sensory deficits noted Other: Intermittent broken speech Extrem General: no edema Psych Appearance: grossly normal Mental Status: mental status grossly normal Speech and Movement: speech and movement normal Course Vital Signs Vital signs: Vital Signs Pulse 72 12/25/22 14:31 Respiratory Rate 20 12/25/22 14:31 Blood Pressure 149/78 H 12/25/22 14:31 Pulse Oximetry 90 L 12/25/22 14:31 Temperature 37.0 C 12/25/22 14:51 Temperature Source Oral 12/25/22 14:51 Pulse 59 L 12/25/22 16:00 Pulse 84 12/25/22 14:50 Respiratory Rate 20 12/25/22 16:00 Respiratory Effort Normal 12/25/22 14:51 Respiratory Depth Shallow 12/25/22 14:51 Respiratory Pattern Normal 12/25/22 14:51 Blood Pressure 138/53 L 12/25/22 16:00 Blood Pressure Mean 100 12/25/22 14:47 Blood Pressure Position Sitting 12/25/22 14:31 Pulse Oximetry 92 12/25/22 16:00 Oxygen Delivery Method Nasal Cannula 12/25/22 16:00 Oxygen Flow Rate 4 12/25/22 16:00 Lab/Test Results Lab/Test Results: Laboratory Tests Range/Units 12/25/22 12/25/22 12/25/22 15:05 15:05 15:05 WBC (4.4-10.8) 10^3/uL RBC (4.36-5.78) 10^6/uL Hgb (13.5-17.5) g/dL Hct (40.0-50.0) % MCV (80-95) fL MCH (27.0-33.0) pg MCHC (32.0-36.0) % RDW (11.8-14.1) % Plt Count (130-400) 10^3/uL MPV (8.0-11.0) fL Immature Gran % Neutrophils % Lymphocytes % Monocytes % Eosinophils % Basophils % Nucleated RBC % (0.0-0.3) % Absolute Neutrophils (1.2-6.7) 10^3/uL Absolute Lymphocytes (1.2-3.4) 10^3/uL Absolute Monocytes (0.1-0.8) 10^3/uL Absolute Eosinophils (0.0-0.7) 10^3/uL Absolute Basophils (0.0-0.2) 10^3/uL VBG pH (7.31-7.41) VBG pCO2 (41-51) mmHg VBG pO2 mmHg VBG HCO3 (23-28) mmol/L VBG Total CO2 (24-29) mmol/L VBG O2 Saturation % VBG Base Excess (-2-3) mmol/L Sodium (136-145) mmol/L 141 Potassium (3.5-5.1) mmol/L 4.3 Chloride (98-107) mmol/L 104 Carbon Dioxide (21.0-32.0) mmol/L 34.8 H Anion Gap (3-11) mmol/L 2.2 L BUN (7-18) mg/dL 15 Creatinine (0.70-1.30) mg/dL 0.7 Est GFR (CKD-EPI 2020) (mL/min/1.73m2) 104.83 Glucose (74-106) mg/dL 115 H Calcium (8.5-10.1) mg/dL 9.1 Magnesium (1.8-2.4) mg/dL 1.8 Total Bilirubin (0.2-1.0) mg/dL 0.3 AST (15-37) U/L 10 L ALT (16-63) U/L 14 L Alkaline Phosphatase (46-116) U/L 89 Ammonia (11-32) umol/L 39 H Total Protein (6.4-8.2) g/dL 6.4 Albumin (3.4-5.0) g/dL 3.0 L TSH (0.36-3.74) uIU/mL 0.90 Urine Color (Yellow) Urine Clarity (Clear) Urine pH (5-8) Ur Specific [place] (1.005-1.025) Urine Protein (Negative) mg/dL Urine Ketones (Negative) mg/dL Urine Blood (Negative) Urine Nitrite (Negative) Urine Bilirubin (Negative) Urine Urobilinogen (Up to 0.2) mg/dL Ur Leukocyte Esterase (Negative) Urine Glucose (Negative) mg/dL Ethyl Alcohol (<10) mg/dL < 3.0 Range/Units 12/25/22 12/25/22 12/25/22 15:05 15:12 16:30 WBC (4.4-10.8) 10^3/uL 6.49 RBC (4.36-5.78) 10^6/uL 5.67 Hgb (13.5-17.5) g/dL 16.8 Hct (40.0-50.0) % 53.0 H MCV (80-95) fL 94 MCH (27.0-33.0) pg 29.6 MCHC (32.0-36.0) % 31.7 L RDW (11.8-14.1) % 15.5 H Plt Count (130-400) 10^3/uL 261 MPV (8.0-11.0) fL 9.0 Immature Gran % 0.3 Neutrophils % 62.1 Lymphocytes % 23.0 Monocytes % 12.6 Eosinophils % 1.7 Basophils % 0.3 Nucleated RBC % (0.0-0.3) % 0.0 Absolute Neutrophils (1.2-6.7) 10^3/uL 4.03 Absolute Lymphocytes (1.2-3.4) 10^3/uL 1.49 Absolute Monocytes (0.1-0.8) 10^3/uL 0.82 H Absolute Eosinophils (0.0-0.7) 10^3/uL 0.11 Absolute Basophils (0.0-0.2) 10^3/uL 0.02 VBG pH (7.31-7.41) 7.35 VBG pCO2 (41-51) mmHg 68 H* VBG pO2 mmHg 43 VBG HCO3 (23-28) mmol/L 37 H VBG Total CO2 (24-29) mmol/L 33 H VBG O2 Saturation % 76 VBG Base Excess (-2-3) mmol/L 12 H Sodium (136-145) mmol/L Potassium (3.5-5.1) mmol/L Chloride (98-107) mmol/L Carbon Dioxide (21.0-32.0) mmol/L Anion Gap (3-11) mmol/L BUN (7-18) mg/dL Creatinine (0.70-1.30) mg/dL Est GFR (CKD-EPI 2020) (mL/min/1.73m2) Glucose (74-106) mg/dL Calcium (8.5-10.1) mg/dL Magnesium (1.8-2.4) mg/dL Total Bilirubin (0.2-1.0) mg/dL AST (15-37) U/L ALT (16-63) U/L Alkaline Phosphatase (46-116) U/L Ammonia (11-32) umol/L Total Protein (6.4-8.2) g/dL Albumin (3.4-5.0) g/dL TSH (0.36-3.74) uIU/mL Urine Color (Yellow) Yellow Urine Clarity (Clear) Clear Urine pH (5-8) 6.0 Ur Specific [place] (1.005-1.025) 1.025 Urine Protein (Negative) mg/dL 30 H Urine Ketones (Negative) mg/dL Negative Urine Blood (Negative) Negative Urine Nitrite (Negative) Negative Urine Bilirubin (Negative) Negative Urine Urobilinogen (Up to 0.2) mg/dL 0.2 Ur Leukocyte Esterase (Negative) Negative Urine Glucose (Negative) mg/dL Negative Ethyl Alcohol (<10) mg/dL
[2022-12-25 16:56] LABS: *AMPHETAMINES SCREEN URINE Negative (Negative); *BARBITURATES SCREEN URINE Negative (Negative); *BENZODIAZEPINES SCREEN URINE Negative (Negative); Cannabinoids THC Negative (Negative); Cocaine Screen,Urine Negative (Negative); METHADONE URINE SCREEN Negative (Negative); OPIATES URINE SCREEN Negative (Negative)
[2022-12-25 16:57] LABS: Tricyclic Antidepressants Negative (Negative)
--- NOTE | 2022-12-25 17:30 | ED.PROG_ITS ---
Date of service: 12/25/22 Time of Service: 17:30 Medical Decision Making I received signout on this 62-year-old male in the emergency department voluntarily in setting of homicidal thoughts. He is pending crisis evaluation. He is medically cleared. His home medications have been ordered. 6 PM I spoke with Edna from an [facility] human services who evaluated the patient. She reported that he was requesting inpatient placement. She is going to have the patient's caser participate in his care. 6:15 PM I spoke with Edna from an [facility] human services. She reported that the patient was voluntary for inpatient placement. She had spoken to the patient's healthcare consultant. 6:30 PM I ordered a patient sitter for the patient. 9:37 PM Patient did not have his home CPAP machine. I ordered CPAP and patient's nurse will call respiratory to have CPAP set up. 9:52 PM No active behavioral issues overnight shift. I signed patient out to the [facility] overnight provider, Dr. Georges. Sign Out Sign Out Data: Sign Out Comment: Patient is here voluntarily for homicidal and suicidal thoughts. He has had increased auditory and visual hallucinations recently. Plan for followup crisis screen. Last updated by Maxi Shepherd MD at 12/25/22 17:04 Discharge Plan Discharge Details Chief Complaint: GenMedical Primary Care Provider: MIMI PEREZ ED Provider: Aquilino Lundy Home Meds and New Rx's Prescriptions: No Action metformin 750 mg tablet extended release 24 hr 750 mg PO DAILY aripiprazole [Abilify] 5 mg tablet 10 mg PO DAILY Incruse Ellipta 62.5 mcg/actuation blister with device 1 inh inhalation DAILY melatonin 3 mg capsule 3 mg PO HS PRN ipratropium-albuterol 0.5 mg-3 mg(2.5 mg base)/3 mL solution for nebulization 3 ml inhalation Q4H PRN (Reason: wheezing) Qty: 540 12RF nicotine (polacrilex) 2 mg gum 2 mg buccal Q2H PRN atorvastatin 20 mg tablet 20 mg PO HS calcium carbonate-vitamin D3 600 mg-20 mcg (800 unit) tablet 1 tab PO DAILY (DME) blood-glucose meter Misc See Rx Instructions .Route Rx Instructions: As directed (DME) Disposable Brief Jumbo X-Large Misc See Rx Instructions .Route Rx Instructions: As directed (DME) Blood Glucose Test Strip See Rx Instructions .Route Rx Instructions: As directed (DME) lancets [OneTouch UltraSoft Lancets] Misc See Rx Instructions .Route Rx Instructions: As directed (DME) oxygen and supplies 2 liters 0 .Route .MEDSUPPLY nystatin 100,000 unit/gram powder 1 applic topical BID oxybutynin chloride 15 mg tablet extended release 24hr 30 mg PO QHS Qty: 180 3RF hydrocortisone 1 % Cream 1 applic topical BID budesonide-formoterol [Symbicort] 160-4.5 mcg/actuation HFA aerosol inhaler See Rx Instructions .ROUTE .COMPLEX Rx Instructions: 2 puffs BID prazosin 1 mg capsule 3 mg PO HS lisinopril 20 mg tablet 20 mg PO BID amlodipine 5 mg tablet 5 mg PO DAILY divalproex 500 mg tablet extended release 24 hr 500 mg PO HS cyanocobalamin (vitamin B-12) [Vitamin B-12] 5,000 mcg Tablet, Sublingual 5,000 mcg SUBLINGUAL DAILY
[2022-12-25] MEDS: Atorvastatin 20 MG TAB PO (21:05)
[2022-12-25] MEDS: Divalproex 500 MG TABEC PO (21:06)
[2022-12-25] MEDS: Lisinopril 20 MG TAB PO (21:07)
[2022-12-25] MEDS: Prazosin 1 MG CAP 3 MG PO (21:08)
[2022-12-25] MEDS: Budesonide/Formoterol 160/4.5 6 GM 60 PUFF INH IH (21:10)
--- NOTE | 2022-12-25 22:28 | NUR.NOTE ---
This ED nurse contacted [facility] for cpap settings. they were unable to give cpap settings for the PT. RT at bedside is managing PTs cpap machine. PTs SPO2% has increased. PT is tolerating well.Nursing Note:
--- NOTE | 2022-12-25 23:24 | ED.PROG_ITS ---
Date of service: 12/25/22 Time of Service: 23:24 Medical Decision Making PAtient seeking voluntary placement for depression/si, currently calm with no other acute complaints, cpap machine at bedside, will continue to monitor until safe dispo found Sign Out Sign Out Data: Sign Out Comment: Patient is here voluntarily for homicidal and suicidal thoughts. He has had increased auditory and visual hallucinations recently. Plan for followup crisis screen. Last updated by Maxi Shepherd MD at 12/25/22 17:04 Sign Out Comment: Patient voluntarily in the emergency department homicidal suicidal thoughts. Home CPAP has been ordered. Crisis recommends voluntary for inpatient. Last updated by Aquilino Lundy MD at 12/25/22 21:53 Discharge Plan Discharge Details Chief Complaint: GenMedical Primary Care Provider: MIMI PEREZ ED Provider: Barrington Georges [place] Meds and New Rx's Prescriptions: No Action metformin 750 mg tablet extended release 24 hr 750 mg PO DAILY aripiprazole [Abilify] 5 mg tablet 10 mg PO DAILY Incruse Ellipta 62.5 mcg/actuation blister with device 1 inh inhalation DAILY melatonin 3 mg capsule 3 mg PO HS PRN ipratropium-albuterol 0.5 mg-3 mg(2.5 mg base)/3 mL solution for nebulization 3 ml inhalation Q4H PRN (Reason: wheezing) Qty: 540 12RF nicotine (polacrilex) 2 mg gum 2 mg buccal Q2H PRN atorvastatin 20 mg tablet 20 mg PO HS calcium carbonate-vitamin D3 600 mg-20 mcg (800 unit) tablet 1 tab PO DAILY (DME) blood-glucose meter Misc See Rx Instructions .Route Rx Instructions: As directed (DME) Disposable Brief Jumbo X-Large Misc See Rx Instructions .Route Rx Instructions: As directed (DME) Blood Glucose Test Strip See Rx Instructions .Route Rx Instructions: As directed (DME) lancets [OneTouch UltraSoft Lancets] Misc See Rx Instructions .Route Rx Instructions: As directed (DME) oxygen and supplies 2 liters 0 .Route .MEDSUPPLY nystatin 100,000 unit/gram powder 1 applic topical BID oxybutynin chloride 15 mg tablet extended release 24hr 30 mg PO QHS Qty: 180 3RF hydrocortisone 1 % Cream 1 applic topical BID budesonide-formoterol [Symbicort] 160-4.5 mcg/actuation HFA aerosol inhaler See Rx Instructions .ROUTE .COMPLEX Rx Instructions: 2 puffs BID prazosin 1 mg capsule 3 mg PO HS lisinopril 20 mg tablet 20 mg PO BID amlodipine 5 mg tablet 5 mg PO DAILY divalproex 500 mg tablet extended release 24 hr 500 mg PO HS cyanocobalamin (vitamin B-12) [Vitamin B-12] 5,000 mcg Tablet, Sublingual 5,000 mcg SUBLINGUAL DAILY
[2022-12-26] VITALS (56 sets, daily range): BP systolic 109–137; BP diastolic 72–100; PULSE 52–80; RESP 0–24; TEMP 35.7; O2SAT 76–96
[2022-12-26] MEDS: Cyanocobalamin 500 MCG TAB 5000 MCG PO (10:00)
[2022-12-26] MEDS: Oxybutynin-CR 5 MG TABCR 30 MG PO ×2 (10:00→23:29)
[2022-12-26] MEDS: amLODIPine 5 MG TAB PO (10:00)
[2022-12-26] MEDS: Nystatin POWDER 15 GM JAR TP ×2 (10:00→23:05)
[2022-12-26] MEDS: Lisinopril 20 MG TAB PO ×2 (10:00→19:56)
[2022-12-26] MEDS: ARIPiprazole 5 MG TAB 10 MG PO (10:00)
--- NOTE | 2022-12-26 10:48 | CMSP_ITS ---
Date of service: 12/26/22 Time of Service: 10:48 Care Management Safety Plan Status Status: Voluntary Reason for Wait Reason for Wait: Inpatient Admission Safety Plan Safety Plan: CHIEF COMPLAINT: Nathan is a 62-year-old male who presents in the ED via EMS due to suicidal and homicidal thoughts.? Nathan resides in a usp setting in [place], [place].? He receives services through the [facility]ANDER program at [facility] and has diagnoses of record of schizophrenia and bipolar disorder.? Nathan was assessed by [facility] and found to meet criteria for a voluntary psychiatric hospitalization.? He will remain at [facility] and be reassessed daily by [facility] until a placement can be secured for him.? CM will continue to follow. VOLUNTARY FOR INPATIENT PSYCHIATRIC STABILIZATION.? Patient is appropriate in all interactions since arriving at [facility]; Pt has demonstrated appropriate coping and communication skills, has articulated his or her needs and concerns and is fully engaged during staff interactions. Safety plan has been established with patient, and care team, to adhere to patient goals, identify restrictions based on behavioral status, address nutrition, and determine allowed personal belongings, tools for hygiene and personal care. Determine level of activity including ambulation, level of supervision, visitors, and determine privileges based on behaviors and level of engagement by pt. SAFETY PLAN: 1. Will remain on suicide precautions. In Paper Clothes 2. Will remain in room under direct supervision of one-on-one staff at all times provided by [employer], CERTIFIED HYPERBARIC TECHNOLOGIST, DISTRIBUTION SALES REPRESENTATIVE live ammunition inspector. 3. May have paper cups, plates, finger foods as well as a cardboard spoon with which to eat meals. 4. Follow [facility] Management of the Admitted Behavioral Health Patient policy. 5. Comfort bath system only, shower permitted at RN discretion. 6. No personal belongings-soft items permitted at RN discretion. 7. Visitors-none at this time. 8. Activities: soft cart items, television and other activities at RN discretion. 9.? Bathroom privileges with escort in the ED, available in room without limitation on Zone B. 10. Phone: contact limited to family at this time, via [employer] hospital phone at RN discretion. 11. Due to VOLUNTARY status, if patient wishes to leave [facility], staff will contact [facility] Crisis Screener ([phone]) and On-Call Accounting Consultant ([phone]) as soon as possible. In the event of elopement, notify [facility] Police ([phone]). Patient is currently voluntarily at [facility] and seeking inpatient admission when a bed becomes available. [facility] Frontline Test Clerk will continue seeking placement. Please contact the Recharger Accounting Consultant ([phone]) and [facility] Test Clerk ([phone]) for any needed changes in the Safety Plan. Safety plan has been provided to interdepartmental care team.
--- NOTE | 2022-12-26 10:48 | PDOC.CMSAFE ---
Date of service: 12/26/22 Time of Service: 10:48 Care Management Safety Plan Status Status: Voluntary Reason for Wait Reason for Wait: Inpatient Admission Safety Plan Safety Plan: CHIEF COMPLAINT: Nathan is a 62-year-old male who presents in the ED via EMS due to suicidal and homicidal thoughts.? Nathan resides in a fdc setting in [place], [place].? He receives services through the [facility] PRODUCER program at [facility] and has diagnoses of record of schizophrenia and bipolar disorder.? Nathan was assessed by [facility] and found to meet criteria for a voluntary psychiatric hospitalization.? He will remain at [facility] and be reassessed daily by [facility] until a placement can be secured for him.? CM will continue to follow. VOLUNTARY FOR INPATIENT PSYCHIATRIC STABILIZATION.? Patient is appropriate in all interactions since arriving at [facility]; Pt has demonstrated appropriate coping and communication skills, has articulated his or her needs and concerns and is fully engaged during staff interactions. Safety plan has been established with patient, and care team, to adhere to patient goals, identify restrictions based on behavioral status, address nutrition, and determine allowed personal belongings, tools for hygiene and personal care. Determine level of activity including ambulation, level of supervision, visitors, and determine privileges based on behaviors and level of engagement by pt. SAFETY PLAN: 1. Will remain on suicide precautions. In Paper Clothes 2. Will remain in room under direct supervision of one-on-one staff at all times provided by [employer], DIRECTOR SOFTWARE QUALITY ASSURANCE, FLUOROSCOPE OPERATOR manager resort. 3. May have paper cups, plates, finger foods as well as a cardboard spoon with which to eat meals. 4. Follow [facility] Management of the Admitted Behavioral Health Patient policy. 5. Comfort bath system only, shower permitted at RN discretion. 6. No personal belongings-soft items permitted at RN discretion. 7. Visitors-none at this time. 8. Activities: soft cart items, television and other activities at RN discretion. 9.? Bathroom privileges with escort in the ED, available in room without limitation on Zone B. 10. Phone: contact limited to family at this time, via [employer] hospital phone at RN discretion. 11. Due to VOLUNTARY status, if patient wishes to leave [facility], staff will contact [facility] Crisis Screener ([phone]) and On-Call Ore Bridge Operator ([phone]) as soon as possible. In the event of elopement, notify [facility] Police ([phone]). Patient is currently voluntarily at [facility] and seeking inpatient admission when a bed becomes available. [facility] Frontline Sizing Machine And Drier Operator will continue seeking placement. Please contact the [employer] Ore Bridge Operator ([phone]) and [facility] Sizing Machine And Drier Operator ([phone]) for any needed changes in the Safety Plan. Safety plan has been provided to interdepartmental care team.
[2022-12-26] MEDS: Budesonide/Formoterol 160/4.5 6 GM 60 PUFF INH IH ×2 (12:30→21:12)
[2022-12-26] MEDS: Umeclidinium 7 CAP INHALER 1 CAP IH (12:31)
--- NOTE | 2022-12-26 15:36 | ED.PROG_ITS ---
Date of service: 12/26/22 Time of Service: 15:36 Medical Decision Making Patient stable today still awaiting placement. Respiratory therapy did see the patient earlier today CPAP was removed. Patient has been calm and cooperative during entirety of ED course.. Patient is unable to be transferred to zone B given medical conditions and specifically need for oxygen. Recommendation from nursing administration to transition patient upstairs while he awaits for placement. -- I called and spoke with the hospitalist, discussed ED presentation course. They will admit the patient. Care transition at time of admission. Lab Data Lab results reviewed: Yes I reviewed the patient's lab results. Labs: Laboratory Tests Range/Units 12/25/22 12/25/22 12/25/22 15:05 15:12 16:30 WBC (4.4-10.8) 10^3/uL 6.49 RBC (4.36-5.78) 10^6/uL 5.67 Hgb (13.5-17.5) g/dL 16.8 Hct (40.0-50.0) % 53.0 H MCV (80-95) fL 94 MCH (27.0-33.0) pg 29.6 MCHC (32.0-36.0) % 31.7 L RDW (11.8-14.1) % 15.5 H Plt Count (130-400) 10^3/uL 261 MPV (8.0-11.0) fL 9.0 Immature Gran % 0.3 Neutrophils % 62.1 Lymphocytes % 23.0 Monocytes % 12.6 Eosinophils % 1.7 Basophils % 0.3 Nucleated RBC % (0.0-0.3) % 0.0 Absolute Neutrophils (1.2-6.7) 10^3/uL 4.03 Absolute Lymphocytes (1.2-3.4) 10^3/uL 1.49 Absolute Monocytes (0.1-0.8) 10^3/uL 0.82 H Absolute Eosinophils (0.0-0.7) 10^3/uL 0.11 Absolute Basophils (0.0-0.2) 10^3/uL 0.02 VBG pH (7.31-7.41) 7.35 VBG pCO2 (41-51) mmHg 68 H* VBG pO2 mmHg 43 VBG HCO3 (23-28) mmol/L 37 H VBG Total CO2 (24-29) mmol/L 33 H VBG O2 Saturation % 76 VBG Base Excess (-2-3) mmol/L 12 H Sodium (136-145) mmol/L 141 Potassium (3.5-5.1) mmol/L 4.3 Chloride (98-107) mmol/L 104 Carbon Dioxide (21.0-32.0) mmol/L 34.8 H Anion Gap (3-11) mmol/L 2.2 L BUN (7-18) mg/dL 15 Creatinine (0.70-1.30) mg/dL 0.7 Est GFR (CKD-EPI 2020) (mL/min/1.73m2) 104.83 Glucose (74-106) mg/dL 115 H Calcium (8.5-10.1) mg/dL 9.1 Magnesium (1.8-2.4) mg/dL 1.8 Total Bilirubin (0.2-1.0) mg/dL 0.3 AST (15-37) U/L 10 L ALT (16-63) U/L 14 L Alkaline Phosphatase (46-116) U/L 89 Ammonia (11-32) umol/L 39 H Total Protein (6.4-8.2) g/dL 6.4 Albumin (3.4-5.0) g/dL 3.0 L TSH (0.36-3.74) uIU/mL 0.90 Urine Color (Yellow) Yellow Urine Clarity (Clear) Clear Urine pH (5-8) 6.0 Ur Specific Fenton (1.005-1.025) 1.025 Urine Protein (Negative) mg/dL 30 H Urine Ketones (Negative) mg/dL Negative Urine Blood (Negative) Negative Urine Nitrite (Negative) Negative Urine Bilirubin (Negative) Negative Urine Urobilinogen (Up to 0.2) mg/dL 0.2 Ur Leukocyte Esterase (Negative) Negative Urine RBC (0-2) HPF Negative Urine WBC (0-5) HPF 0-2 Ur Epithelial Cells (Negative) HPF Rare Urine Crystals (Negative) HPF Negative Urine Bacteria (Negative) HPF Negative Urine Mucus (Negative) Negative Ur Culture Indicated? No Urine Glucose (Negative) mg/dL Negative Urine Opiates Screen (Negative) Negative Urine Methadone Screen (Negative) Negative Ur Barbiturates Screen (Negative) Negative Ur Tricyclics Screen (Negative) Negative Ur Amphetamines Screen (Negative) Negative U Benzodiazepines Scrn (Negative) Negative Urine Cocaine Screen (Negative) Negative Ur THC Screen (Negative) Negative Ethyl Alcohol (<10) mg/dL < 3.0 Sign Out Sign Out Data: Sign Out Comment: Patient is here voluntarily for homicidal and suicidal thoughts. He has had increased auditory and visual hallucinations recently. Plan for followup crisis screen. Last updated by Maxi Shepherd MD at 12/25/22 17:04 Sign Out Comment: Patient voluntarily in the emergency department homicidal suicidal thoughts. Home CPAP has been ordered. Crisis recommends voluntary for inpatient. Last updated by Aquilino Lundy MD at 12/25/22 21:53 Discharge Plan Disposition Patient Disposition: Admit to [facility] Discharge Details Clinical Impression: Suicide ideation, Hallucinations, COPD (chronic obstructive pulmonary disease) Admit Date/Time: 12/26/22 18:06 Admit Provider: Konrad Sampson Attending Provider: Konrad Sampson Primary Care Provider: MIMI PEREZ ED Provider: Maxi Shepherd Discharge Data Discharge Date/Time-TO BE ENTERED AT DEPARTURE: 12/26/22 18:06
--- NOTE | 2022-12-26 16:43 | HPE_ITS ---
Date of service: 12/26/22 Time of Service: 16:43 Assessment and Plan Assessment and plan (1) Schizophrenia: Assessment and plan: Continue Abilify consult mental health in the morning. Use lorazepam as needed for agitation. Professional time spent interviewing and examining patient, discussion of goals of care with hospital team (care management, nursing and consulting professionals) was 60 minutes. Qualifiers: Schizophrenia type: paranoid schizophrenia Qualified Code(s): F20.0 - Paranoid schizophrenia (2) Hallucinations: Status: Acute Assessment and plan: Resume his antipsychotics. These were restarted in the emergency department. And include Abilify as well as a mood stabilizer divalproex. (3) Suicide ideation: Status: Acute Assessment and plan: Continue CPSO monitoring and consult mental health to reevaluate him in the morning. (4) COPD (chronic obstructive pulmonary disease): Status: Chronic Assessment and plan: Continue his home nebulizers as well as his maintenance LABA and LAMA as well as his home oxygen at 2 L/min per nasal cannula at rest and application CPAP at night Qualifiers: COPD type: unspecified COPD Qualified Code(s): J44.9 - Chronic obstructive pulmonary disease, unspecified (5) HTN (hypertension): Status: Chronic Assessment and plan: Continue lisinopril and amlodipine Qualifiers: Hypertension type: primary hypertension Qualified Code(s): I10 - Essential (primary) hypertension (6) Diabetes: Status: Chronic Assessment and plan: Continue his metformin as well as monitoring of blood sugars ACHS and coverage with insulin sensitive sliding scale. Qualifiers: Diabetes mellitus type: type 2 Diabetes mellitus intermission coordinator insulin use: without intermission coordinator use Diabetes mellitus complication status: without complication Qualified Code(s): E11.9 - Type 2 diabetes mellitus without complications History of Present Illness History of Present Illness Chief Complaint: hallucinations, hearing voices, thought of suicide Narrative: 62-year-old male with a history of schizophrenia, COPD, essential pretension, diabetes mellitus type 2, who presented to the emergency department on 12/25/2022 with visual and auditory hallucinations people telling him to kill himself and that its the end of the world. He had no specific plan for how to kill himself. Just the people are telling him is the end of the world that he should . Patient has expressed that he wants help in controlling the voices and the visions. He is here on voluntary basis for treatment of his schizophrenia and suicidal ideation. Does have a history of obstructive sleep apnea and COPD and requires use of CPAP machine. He is normally on 2 L of oxygen at home. He has been medically stable and monitored in the emergency department for over the past 24 hours and now the ED is requesting that we admit him to the medical/surgical floor pending psychiatric evaluation and inpatient placement for his psychiatric condition. Diagnostic evaluation included CT scan of his head that showed no acute intracranial process. Labs including CBC showed no anemia and no dysplastic changes in his white cells. WBCs are normal at 6400 and platelet count is normal at 261,000. Chemistry profile shows that he has chronic CO2 retention. Carbon dioxide level 36.5 on his electrolyte panel. BUN and creatinine are normal at 13 and 0.8 with repeat levels of 15 and 0.7. Glucose was 115. LFTs are normal. His ammonia level was mildly elevated at 39 with upper limit of normal being 32. TSH is normal 1.9. Urine toxicology screen was negative for drugs of abuse including opiates, methadone, barbiturates, tricyclic antidepressants, amphetamines, benzodiazepines, cocaine, THC. Blood alcohol level less than 3.0. Nasal swab for SARS-CoV-2 was negative. However he does have a history of previous infection in March of this year. His VBG shows chronic CO2 retention with a PCO2 of 68 but a corrected pH of 7.35. Coag studies were normal. Patient is medically stable does require chronic oxygen as well as uses CPAP at night. All of his home medications have been ordered. We will order sliding scale insulin Maya and monitor his blood sugars ACHS. We will request mental health consult in the morning to follow-up with him. Review of Systems All systems reviewed & are unremarkable except as noted in HPI and below PFSH All Active Problems (Updated 12/26/22 @ 19:15 by Konrad Sampson MD) COPD (chronic obstructive pulmonary disease) (Chronic) Hallucinations (Acute) Suicide ideation (Acute) Headache (Acute) Seborrheic dermatitis (Acute) COVID-19 (Acute) Altered mental status (Acute) Septic shock (Acute) Right bundle branch block (Acute) Elevated troponin (Acute) Elevated LFTs (Acute) MICHAEL (acute kidney injury) (Acute) Hyperkalemia (Acute) Lactic acidosis (Acute) COVID (Acute) Respiratory failure with hypoxia and hypercapnia (Acute) Nicotine dependence, cigarettes, uncomplicated (Acute) Respiratory failure with hypoxia (Acute) Hypoxemia (Acute) Sleep apnea (Acute) Depression (Chronic) Tobacco dependence (Acute) Supplemental oxygen dependent (Acute) Bipolar 1 disorder (Acute) Obesity (Chronic) Incontinence of urine (Acute) Diabetes (Chronic) DVT prophylaxis (Acute) HTN (hypertension) (Chronic) Obstructive sleep apnea (Chronic) COPD (chronic obstructive pulmonary disease) (Chronic) Suicidal ideations (Acute) Hallucinations (Acute) Hypertension (Chronic) Medical History Palliative care patient Obesity (BMI 30-39.9) Hyperlipidemia Schizophrenia Family History Other Adopted Social History Smoking/Tobacco Use Status: Current every day Tobacco Type: cigarettes Smoking packs per day: 0 Smoking cigarettes per day: 0.0 Years smoked: 30 Smoking pack- years: 0.00 Tobacco: How many years used: 30 Smoking risk assessment performed?: Yes Alcohol Intake: former Drug use: Never Substance use type: does not use Caregiver/Support person: No Household members: none Housing: assisted living facility Number of Children: 0 Communication Needs: Hard of Hearing and Corrective Lenses Education Level: high school Do you need help understanding health information?: Always current occupation: disabled due to mental illness Pets and animals: No Current gender identity: male What is your relationship status?: never How often do you talk on the phone with friends or family?: never How often do you get together with friends or relatives?: never Panel score (0-1 are the most socially isolated patients): 0 What type of physical activity do you participate in: none and sedentary lifestyle Frequency: does not exercise Special mannie needs: No Seatbelt use: always Do you feel safe at home: No (pt states feeling unsafe but cannot explain why.) Do you feel safe in your relationship?: Yes Meds Allergies and Home Medications Allergies Allergy/AdvReac Type Severity Reaction Status Date / Time Penicillins Allergy Severe Anaphylaxis Unverified 12/25/22 14:44 dextromethorphan Allergy Mild Skin Rash Unverified 12/25/22 14:44 [From Dimetapp Cold-Congestion] diphenhydramine Allergy Mild Skin Rash Unverified 12/25/22 14:44 [From Dimetapp Cold-Congestion] guaifenesin Allergy Mild Skin Rash Unverified 12/25/22 14:44 [From Dimetapp Cold-Congestion] phenylephrine Allergy Mild Skin Rash Unverified 12/25/22 14:44 [From Dimetapp Cold-Congestion] pseudoephedrine Allergy Mild Skin Rash Unverified 12/25/22 14:44 [From Dimetapp Cold-Congestion] bupropion [From Wellbutrin] AdvReac Intermediate Other (See Unverified 12/25/22 14:44 Comment) Home Medications Medication Instructions Recorded Confirmed Type hydrocortisone 1 % topical cream 1 applic topical BID 08/01/20 12/25/22 History aripiprazole 5 mg tablet (Abilify) 10 mg PO DAILY 03/13/21 12/25/22 History metformin 750 mg tablet,extended 750 mg PO DAILY 03/13/21 12/25/22 History release 24 hr blood sugar diagnostic (Blood 10/23/21 12/25/22 History Glucose Test strips) blood-glucose meter 10/23/21 12/25/22 History diaper,brief,adult,disposable 10/23/21 12/25/22 History (Disposable Brief Jumbo X-Large) lancets (OneTouch UltraSoft 10/23/21 12/25/22 History Lancets) nystatin 100,000 unit/gram topical 1 applic topical BID 10/23/21 12/25/22 History powder oxygen and supplies 2 liters 10/23/21 12/25/22 History umeclidinium 62.5 mcg/actuation 1 inh inhalation DAILY 02/05/22 12/25/22 History blister powder for inhalation (Incruse Ellipta) budesonide-formoterol HFA 160 See Rx Instructions .Route .COMPLEX 04/12/22 12/25/22 History mcg-4.5 mcg/actuation aerosol inhaler (Symbicort) ipratropium 0.5 mg-albuterol 3 mg 3 ml inhalation Q4H PRN wheezing 05/15/22 12/25/22 Rx (2.5 mg base)/3 mL nebulization #540 mL soln melatonin 3 mg capsule 3 mg PO HS PRN 05/15/22 12/25/22 History atorvastatin 20 mg tablet 20 mg PO HS 08/13/22 12/25/22 History calcium carbonate 600 mg-vitamin 1 tab PO DAILY 08/13/22 12/25/22 History D3 20 mcg (800 unit) tablet nicotine (polacrilex) 2 mg gum 2 mg buccal Q2H PRN 10/22/22 12/25/22 History oxybutynin chloride 15 mg 30 mg (2 x 15 mg) PO QHS #180 tabs 11/26/22 12/25/22 Rx tablet,extended release 24 hr amlodipine 5 mg tablet 5 mg PO DAILY 12/23/22 12/25/22 History cyanocobalamin (vitamin B-12) 5,000 mcg sublingual DAILY 12/23/22 12/25/22 History 5,000 mcg sublingual tablet (Vitamin B-12) divalproex 500 mg tablet,extended 500 mg PO HS 12/23/22 12/25/22 History release 24 hr lisinopril 20 mg tablet 20 mg PO BID 12/23/22 12/25/22 History prazosin 1 mg capsule 3 mg PO HS 12/23/22 12/25/22 History Exam Narrative Exam Narrative: Morbidly obese white male with plethoric facial appearance. Does not appear to be in any acute distress. Currently denies any visual or auditory hallucinations but says he had some volumes down in the emergency department. HEENT is unremarkable Neck is obese no JVD normal carotid pulses Chest it is barrel chested he has clear lung sounds anteriorly posteriorly there is some faint bibasilar rales no rhonchi or wheezing Heart is regular rate and rhythm without murmur rub or gallop Abdomen is obese soft and nontender normal bowel sounds Extremities trace of pitting edema over his feet no cyanosis pedal pulses intact. Neuro exam grossly intact with no focal cranial nerve or motor or sensory deficits. Results Labs 12/25/22 15:05 12/25/22 15:05 Labs: Laboratory Results - last 24 hr 12/25/22 16:30 Urine Color Yellow Urine Clarity Clear Urine pH 6.0 Ur Specific Lyman 1.025 Urine Protein 30 H Urine Ketones Negative Urine Blood Negative Urine Nitrite Negative Urine Bilirubin Negative Urine Urobilinogen 0.2 Ur Leukocyte Esterase Negative Urine RBC Negative Urine WBC 0-2 Ur Epithelial Cells Rare Urine Crystals Negative Urine Bacteria Negative Urine Mucus Negative Ur Culture Indicated? No Urine Glucose Negative Urine Opiates Screen Negative Urine Methadone Screen Negative Ur Barbiturates Screen Negative Ur Tricyclics Screen Negative Ur Amphetamines Screen Negative U Benzodiazepines Scrn Negative Urine Cocaine Screen Negative Ur THC Screen Negative Last Vital Signs Temp 37.0 C 12/25/22 14:51 Pulse 70 12/26/22 16:14 Resp 22 12/26/22 16:14 BP 132/85 12/26/22 03:46 Pulse Ox 93 12/26/22 16:14 Time Spent Time spent with Patient: 55-74 minutes Time was spent: preparing to see the patient(eg.review tests), obtaining and/or reviewing separately otained hiistory, ordering medications,tests, procedures, referring, communicating with other health home care rn, indepentently interpreting results, counseling the patient and care coordination
[2022-12-26 17:42] LABS: Source Nasal/Nares
[2022-12-26 18:11] LABS: COVID-19 PCR Negative (Negative)
[2022-12-26] MEDS: Enoxaparin 40 MG/0.4 ML SYR SC (18:46)
[2022-12-26] MEDS: Melatonin 3 MG TAB PO (19:56)
[2022-12-26] MEDS: Nicotine 21 MG/24 HR PATCH TD (20:05)
[2022-12-26] MEDS: Acetaminophen 325 MG TAB PO (20:05)
[2022-12-26] MEDS: Hydrocortisone 1% CR 30 GM TUBE TP (21:00)
[2022-12-26] MEDS: Atorvastatin 20 MG TAB PO (23:30)
[2022-12-26] MEDS: Prazosin 1 MG CAP 3 MG PO (23:30)
[2022-12-26] MEDS: Divalproex Sodium 500 MG TAB.ER.24H PO (23:34)
[2022-12-27] VITALS (9 sets, daily range): BP systolic 100–124; BP diastolic 62–84; PULSE 55–62; RESP 16–21; TEMP 35.9–36.6; O2SAT 82–96
--- NOTE | 2022-12-27 | DI.RAD_ITS ---
Exam(s) XR CHEST 2V PA LATERAL EXAM: XR CHEST 2V PA LATERAL CLINICAL HISTORY: Hypoxia, cough with sputum TECHNIQUE: 2D digital imaging was performed. COMPARISON: CR XR PORTABLE CHEST AP from 08/01/2020 CR,XR XR PORTABLE CHEST AP from 08/29/[address] CHEST LUNG CANCER SCREEN from 02/27/2022 CR XR PORTABLE CHEST AP from 04/12/2022 CR XR PORTABLE CHEST AP from 04/12/[address] CHEST WO from 06/04/2022 FINDINGS: HEART: Normal size. Aorta: Mildly enlarged. PULMONARY VASCULATURE: Normal. LUNGS: Increased bibasilar densities posteriorly suspicious for pneumonia. PLEURAL SPACE: Tiny right pleural effusion. No pneumothorax. BONE:Unremarkable for age. IMPRESSION: Tiny right pleural effusion. Bibasilar infiltrates. DATA REPOSITORY: RADIATION DOSE DELIVERED:
[2022-12-27 07:01] LABS: Hemoglobin A1C 6.7 % (<5.7)
[2022-12-27] MEDS: ARIPiprazole 5 MG TAB 10 MG PO (08:07)
[2022-12-27] MEDS: Hydrocortisone 1% CR 30 GM TUBE TP ×2 (08:07→19:32)
[2022-12-27] MEDS: Nystatin POWDER 15 GM JAR TP ×2 (08:08→19:32)
[2022-12-27] MEDS: Umeclidinium 7 CAP INHALER 1 CAP IH (08:30)
[2022-12-27] MEDS: Budesonide/Formoterol 160/4.5 6 GM 60 PUFF INH IH ×3 (08:30→19:38)
[2022-12-27] MEDS: Calcium 600mg/Vit D 200U TAB 1 TAB PO (08:37)
[2022-12-27] MEDS: Nicotine 2 MG GUM BC ×2 (10:32→21:08)
--- NOTE | 2022-12-27 10:49 | CMSP_ITS ---
Date of service: 12/27/22 Time of Service: 10:49 Care Management Safety Plan Status Status: Voluntary Reason for Wait Reason for Wait: Inpatient Admission Safety Plan Safety Plan: CHIEF COMPLAINT: Nathan is a 62-year-old male who presented in the ED via EMS due to suicidal and homicidal thoughts.? He lives in a [facility] setting in [place], [place].? Nathan receives services through the OFFSET PRESS OPERATOR program at [facility] and has diagnoses of record of schizophrenia and bipolar disorder.? He was assessed by [facility] and found to meet criteria for a voluntary psychiatric hospitalization.? He will remain at [facility] and be reassessed daily by [facility] until a placement can be secured for him.? Nathan has been cooperative and engaged with staff and CM. When he met with CM he requested a coloring book and crayons and these were provided. VOLUNTARY FOR INPATIENT PSYCHIATRIC STABILIZATION.? Patient is appropriate in all interactions since arriving at [facility]; Pt has demonstrated appropriate coping and communication skills, has articulated his or her needs and concerns and is fully engaged during staff interactions. Safety plan has been established with patient, and care team, to adhere to patient goals, identify restrictions based on behavioral status, address nutrition, and determine allowed personal belongings, tools for hygiene and personal care. Determine level of activity including ambulation, level of supervision, visitors, and determine privileges based on behaviors and level of engagement by pt. SAFETY PLAN: 1. Will remain on suicide precautions. In Paper Clothes 2. Will remain in room under direct supervision of one-on-one staff at all times provided by CPSO, BALANCE CLERK, DIRECTOR OF ENROLLMENT director of education. 3. May have paper cups, plates, finger foods as well as a cardboard spoon with which to eat meals. 4. Follow [facility] Management of the Admitted Behavioral Health Patient policy. 5. Comfort bath system only, shower permitted at RN discretion. 6. No personal belongings-soft items permitted at RN discretion. 7. Visitors-none at this time. 8. Activities: soft cart items, television and other activities at RN discretion. 9.? Bathroom privileges with escort in the ED, available in room without limitation on Zone B. 10. Phone: contact limited to family at this time, via [employer] hospital phone at RN discretion. 11. Due to VOLUNTARY status, if patient wishes to leave [facility], staff will contact [facility] Crisis Screener ([phone]) and On-Call News Clerk ([phone]) as soon as possible. In the event of elopement, notify [facility] Police ([phone]). Patient is currently voluntarily at [facility] and seeking inpatient admission when a bed becomes available. [facility] Frontline Quality Engineer will continue seeking placement. Please contact the Food Service Specialist News Clerk ([phone]) and [facility] Quality Engineer ([phone]) for any needed changes in the Safety Plan. Safety plan has been provided to interdepartmental care team.
--- NOTE | 2022-12-27 10:49 | PDOC.CMSAFE ---
Date of service: 12/27/22 Time of Service: 10:49 Care Management Safety Plan Status Status: Voluntary Reason for Wait Reason for Wait: Inpatient Admission Safety Plan Safety Plan: CHIEF COMPLAINT: Nathan is a 62-year-old male who presented in the ED via EMS due to suicidal and homicidal thoughts.? He lives in a half-way setting in [place], [place].? Nathan receives services through the THERAPEUTIC ACTIVITIES SERVICES WORKER program at [facility] and has diagnoses of record of schizophrenia and bipolar disorder.? He was assessed by [facility] and found to meet criteria for a voluntary psychiatric hospitalization.? He will remain at [facility] and be reassessed daily by [facility] until a placement can be secured for him.? Nathan has been cooperative and engaged with staff and CM. When he met with CM he requested a coloring book and crayons and these were provided. VOLUNTARY FOR INPATIENT PSYCHIATRIC STABILIZATION.? Patient is appropriate in all interactions since arriving at [facility]; Pt has demonstrated appropriate coping and communication skills, has articulated his or her needs and concerns and is fully engaged during staff interactions. Safety plan has been established with patient, and care team, to adhere to patient goals, identify restrictions based on behavioral status, address nutrition, and determine allowed personal belongings, tools for hygiene and personal care. Determine level of activity including ambulation, level of supervision, visitors, and determine privileges based on behaviors and level of engagement by pt. SAFETY PLAN: 1. Will remain on suicide precautions. In Paper Clothes 2. Will remain in room under direct supervision of one-on-one staff at all times provided by CPSO, AIRFRAME DESIGN ENGINEER, ELEVATOR SUPERVISOR pest control supervisor. 3. May have paper cups, plates, finger foods as well as a cardboard spoon with which to eat meals. 4. Follow [facility] Management of the Admitted Behavioral Health Patient policy. 5. Comfort bath system only, shower permitted at RN discretion. 6. No personal belongings-soft items permitted at RN discretion. 7. Visitors-none at this time. 8. Activities: soft cart items, television and other activities at RN discretion. 9.? Bathroom privileges with escort in the ED, available in room without limitation on Zone B. 10. Phone: contact limited to family at this time, via [employer] hospital phone at RN discretion. 11. Due to VOLUNTARY status, if patient wishes to leave [facility], staff will contact [facility] Crisis Screener ([phone]) and On-Call Auto Dealer ([phone]) as soon as possible. In the event of elopement, notify [facility] Police ([phone]). Patient is currently voluntarily at [facility] and seeking inpatient admission when a bed becomes available. [facility] Frontline Aquatic Biologist will continue seeking placement. Please contact the Client Services Administrator Auto Dealer ([phone]) and [facility] Aquatic Biologist ([phone]) for any needed changes in the Safety Plan. Safety plan has been provided to interdepartmental care team.
[2022-12-27 10:51] LABS: HCT 48.4 % (40.0-50.0); HGB 15.6 g/dL (13.5-17.5); MCH 30.2 pg (27.0-33.0); MCHC 32.2 % (32.0-36.0); MCV 94 fL (80-95); MPV 9.6 fL (8.0-11.0); Platelet Count 207 10^3/uL (130-400); RBC 5.17 10^6/uL (4.36-5.78); RDW 15.1 % (11.8-14.1); RDW-SD 52.9 fL; WBC 5.85 10^3/uL (4.4-10.8)
[2022-12-27] MEDS: Insulin Aspart 300 UNITS/3 ML PEN SC (12:37)
[2022-12-27] MEDS: Doxycycline Hyclate 100 MG CAP PO ×2 (12:38→19:32)
[2022-12-27] MEDS: cefTRIAXone 2 GM/50 ML BAG IVPB (12:40)
[2022-12-27] MEDS: Enoxaparin 40 MG/0.4 ML SYR SC (17:51)
[2022-12-27] MEDS: Acetaminophen 325 MG TAB PO (19:32)
[2022-12-27] MEDS: Lisinopril 20 MG TAB PO (20:15)
--- NOTE | 2022-12-27 20:50 | W.PM.PROGNOT ---
Date of Service Date of service: 12/27/22 Time of Service: 20:51 Assessment and Plan Assessment and plan (1) Schizophrenia: Assessment and plan: Continue Abilify. Now with PNA; mental health to be consulted when medically more stable. Qualifiers: Schizophrenia type: paranoid schizophrenia Qualified Code(s): F20.0 - Paranoid schizophrenia (2) Pneumonia: Status: Resolved Assessment and plan: CXR today shows bibasilar infiltrates. Rocephin and doxycycline initiated. IS and acapella. Normal WBC. Afebrile. (3) Hallucinations: Status: Acute Assessment and plan: Resume his antipsychotics. These were restarted in the emergency department. And include Abilify as well as a mood stabilizer divalproex. (4) Suicide ideation: Status: Acute Assessment and plan: Continue CPSO monitoring and consult mental health when PNA is stabilized/improved. (5) COPD (chronic obstructive pulmonary disease): Status: Chronic Assessment and plan: Continue his home nebulizers as well as his maintenance LABA and LAMA as well as supplemental O2. Qualifiers: COPD type: unspecified COPD Qualified Code(s): J44.9 - Chronic obstructive pulmonary disease, unspecified (6) HTN (hypertension): Status: Chronic Assessment and plan: Continue lisinopril and amlodipine Qualifiers: Hypertension type: primary hypertension Qualified Code(s): I10 - Essential (primary) hypertension (7) Diabetes: Status: Chronic Assessment and plan: Continue his metformin as well as monitoring of blood sugars ACHS and coverage with insulin sensitive sliding scale. Qualifiers: Diabetes mellitus type: type 2 Diabetes mellitus custodial insulin use: without terminal carman use Diabetes mellitus complication status: without complication Qualified Code(s): E11.9 - Type 2 diabetes mellitus without complications Subjective Subjective Patient reports: tolerating a regular diet, shortness of breath and afebrile; denies nausea or vomiting Interval history since last seen: Required 5L supplemental O2 initially this AM but then back to his baseline need of 2-3 liters. + cough with yellow sputum . Exam Narrative Exam Narrative: Gen: Morbidly obese white male with plethoric facial appearance. Does not appear to be in any acute distress.Sitting on edge of bed. HEENT is unremarkable Neck is obese no JVD Chest it is barrel chested he has clear lung sounds anteriorly. Diminished breath sounds. Heart is regular rate and rhythm without murmur Abdomen is obese soft and nontender normal bowel sounds Extremities trace of edema over his feet no cyanosis pedal pulses intact. Neuro exam grossly intact with no focal cranial nerve or motor or sensory deficits. Psych: flat affect. Objective Last Vital Signs Temp 35.9 C L 12/27/22 14:51 Pulse 55 L 12/27/22 14:51 Resp 17 12/27/22 14:51 BP 120/79 12/27/22 14:51 Pulse Ox 93 12/27/22 17:27 Laboratory Results - last 24 hr 12/27/22 06:16 WBC 5.85 RBC 5.17 Hgb 15.6 Hct 48.4 MCV 94 MCH 30.2 MCHC 32.2 RDW 15.1 H Plt Count 207 MPV 9.6 Hemoglobin A1c 6.7 H Time Spent with Patient Time Spent with Patient: 25-34 minutes Time was spent: preparing to see the patient(eg.review tests), obtaining and/or reviewing separately otained hiistory, ordering medications,tests, procedures, referring, communicating with other health primary care provider, indepentently interpreting results, counseling the patient and care coordination
[2022-12-27] MEDS: Divalproex Sodium 500 MG TAB.ER.24H PO (21:08)
[2022-12-27] MEDS: Prazosin 1 MG CAP 3 MG PO (21:08)
[2022-12-27] MEDS: Oxybutynin-CR 5 MG TABCR 30 MG PO (21:08)
[2022-12-27] MEDS: Melatonin 3 MG TAB PO (21:09)
[2022-12-27] MEDS: Atorvastatin 20 MG TAB PO (21:09)
[2022-12-28] VITALS (8 sets, daily range): BP systolic 106–119; BP diastolic 68–75; PULSE 52–77; RESP 18–25; TEMP 35.6–36.2; O2SAT 87–93
[2022-12-28] MEDS: LORazepam 1 MG TAB PO (01:15)
[2022-12-28 06:29] LABS: Abs Immature Grans 0.02 10^3/uL (0.0-0.06); Absolute Basophil Count 0.03 10^3/uL (0.0-0.2); Absolute Eosinophil Count 0.17 10^3/uL (0.0-0.7); Absolute Lymphocyte Count 1.15 10^3/uL (1.2-3.4); Absolute Monocyte Count 0.74 10^3/uL (0.1-0.8); Absolute Neutrophil Count 3.64 10^3/uL (1.2-6.7); Basophils % 0.5; HCT 49.2 % (40.0-50.0); HGB 15.7 g/dL (13.5-17.5); Immature Grans % 0.3; MCHC 31.9 % (32.0-36.0); MCV 94 fL (80-95); MPV 9.4 fL (8.0-11.0); Monocytes % 12.9; Neutrophils % 63.3; Platelet Count 202 10^3/uL (130-400); RBC 5.23 10^6/uL (4.36-5.78); RDW 14.7 % (11.8-14.1); RDW-SD 51.5 fL; WBC 5.75 10^3/uL (4.4-10.8)
[2022-12-28 06:40] LABS: BUN 19 mg/dL (7-18); CREATININE 0.6 mg/dL (0.70-1.30); Calcium 8.9 mg/dL (8.5-10.1); Chloride 102 mmol/L (98-107); Estimated GFR 109.83 (mL/min/1.73m2); Glucose 120 mg/dL (74-106); Potassium 4.5 mmol/L (3.5-5.1); Sodium 143 mmol/L (136-145)
[2022-12-28] MEDS: Umeclidinium 7 CAP INHALER 1 CAP IH (08:52)
[2022-12-28] MEDS: Budesonide/Formoterol 160/4.5 6 GM 60 PUFF INH IH ×2 (08:52→21:08)
[2022-12-28] MEDS: Lisinopril 20 MG TAB PO ×2 (09:10→19:56)
[2022-12-28] MEDS: ARIPiprazole 5 MG TAB 10 MG PO (09:11)
[2022-12-28] MEDS: Doxycycline Hyclate 100 MG CAP PO ×2 (09:11→19:55)
[2022-12-28] MEDS: amLODIPine 5 MG TAB PO (09:11)
[2022-12-28] MEDS: Calcium 600mg/Vit D 200U TAB 1 TAB PO (09:11)
[2022-12-28] MEDS: Nystatin POWDER 15 GM JAR TP ×2 (09:12→21:07)
[2022-12-28] MEDS: Insulin Aspart 300 UNITS/3 ML PEN SC (12:34)
[2022-12-28] MEDS: Acetaminophen 325 MG TAB PO ×3 (12:34→19:55)
--- NOTE | 2022-12-28 14:23 | MHPN_ITS ---
Date of service: 12/26/22 Time of Service: 14:23 Mental Health Emergency Note Release [facility] release signed:: Yes Reason for Visit Client was taken via ambulance to [facility] due to concerns about the client's health and how the client was presenting during the client's psychotherapy session with Bharti Mccormick with the agency. This is a follow up assessment. In the last 2 weeks has the pt presented for ES prior to today?: No Impression The client is a 62 year old, single, male who resides at [facility] in [facility]. He presents today sitting in his bed in the ED eating his lunch. He had asked for a sandwich however, got a pot roast instead and did not have any utensils to eat with or cut his food with. This was requested and his nurse cut his food for him so he could eat. He appears disheveled and poorly groomed. He reported that he is feeling a little better and that he is also slightly confused. He reported his sleep was poor due to being in the ED. The client endorsed still having thoughts of suicide and denied HI. He is still seeking voluntary inpatient treatment at this time. Plan/Disposition Recommended Disposition: Hospitalization facilities contacted. Plan: The client will remain at the hospital and be assessed daily by [facility] until placement is found. Person reported agreement to plan: Yes Facilities contacted if Applicable [facility] Not accepted, (Still being reviewed. ) Other, Reports/communication Outcome discussed with: ED/Personnel
--- NOTE | 2022-12-28 16:14 | W.PM.PROGNOT ---
Date of Service Date of service: 12/28/22 Time of Service: 16:14 Assessment and Plan Assessment and plan (1) Schizophrenia: Assessment and plan: Continue Abilify. Now with PNA; mental health to be consulted when medically more stable. Qualifiers: Schizophrenia type: paranoid schizophrenia Qualified Code(s): F20.0 - Paranoid schizophrenia (2) Pneumonia: Status: Resolved Assessment and plan: CXR on 12/27 shows bibasilar infiltrates. Rocephin and doxycycline initiated. IS and acapella. Normal WBC. Afebrile. (3) Hallucinations: Status: Acute Assessment and plan: Resume his antipsychotics. These were restarted in the emergency department. And include Abilify as well as a mood stabilizer divalproex. (4) Suicide ideation: Status: Acute Assessment and plan: Continue CPSO monitoring and consult mental health when PNA is stabilized/improved. (5) COPD (chronic obstructive pulmonary disease): Status: Chronic Assessment and plan: Continue his home nebulizers as well as his maintenance LABA and LAMA as well as supplemental O2. Qualifiers: COPD type: unspecified COPD Qualified Code(s): J44.9 - Chronic obstructive pulmonary disease, unspecified (6) HTN (hypertension): Status: Chronic Assessment and plan: Continue lisinopril and amlodipine Qualifiers: Hypertension type: primary hypertension Qualified Code(s): I10 - Essential (primary) hypertension (7) Diabetes: Status: Chronic Assessment and plan: Continue his metformin as well as monitoring of blood sugars ACHS and coverage with insulin sensitive sliding scale. Controlled Qualifiers: Diabetes mellitus type: type 2 Diabetes mellitus supervisor intermediates insulin use: without group home use Diabetes mellitus complication status: without complication Qualified Code(s): E11.9 - Type 2 diabetes mellitus without complications (8) Discharge planning issues: Status: Acute Assessment and plan: Planning to transfer to in psychiatric facility when medically cleared. Subjective Subjective Patient reports: no new complaints and tolerating a regular diet; denies nausea, vomiting or afebrile Exam Narrative Exam Narrative: Gen: Morbidly obese white male lying in bed. NAD HEENT is unremarkable. MMM Lungs: clear and diminished. Heart is regular rate and rhythm without murmur Abdomen is obese soft and nontender normal bowel sounds Extremities trace of edema over his feet no cyanosis pedal pulses intact. Neuro exam grossly intact with no focal cranial nerve or motor or sensory deficits. Psych: flat affect. Objective Last Vital Signs Temp 36.2 C L 12/28/22 09:15 Pulse 64 12/28/22 09:15 Resp 18 12/28/22 09:15 BP 106/68 12/28/22 09:15 Pulse Ox 88 L 12/28/22 16:13 Laboratory Results - last 24 hr 12/28/22 06:03 WBC 5.75 RBC 5.23 Hgb 15.7 Hct 49.2 MCV 94 MCH 30.0 MCHC 31.9 L RDW 14.7 H Plt Count 202 MPV 9.4 Immature Gran % 0.3 Neutrophils % 63.3 Lymphocytes % 20.0 Monocytes % 12.9 Eosinophils % 3.0 Basophils % 0.5 Nucleated RBC % 0.0 Absolute Neutrophils 3.64 Absolute Lymphocytes 1.15 L Absolute Monocytes 0.74 Absolute Eosinophils 0.17 Absolute Basophils 0.03 Sodium 143 Potassium 4.5 Chloride 102 Carbon Dioxide 37.0 H Anion Gap 4.0 BUN 19 H Creatinine 0.6 L Est GFR (CKD-EPI 2020) 109.83 Glucose 120 H Calcium 8.9 Time Spent with Patient Time Spent with Patient: 25-34 minutes Time was spent: preparing to see the patient(eg.review tests), obtaining and/or reviewing separately otained hiistory, ordering medications,tests, procedures, referring, communicating with other health nurse wound care, indepentently interpreting results and care coordination
--- NOTE | 2022-12-28 16:41 | CMSP_ITS ---
Date of service: 12/28/22 Time of Service: 16:41 Care Management Safety Plan Status Status: Interim Reason for Wait Reason for Wait: Medical Clearance Safety Plan Safety Plan: CHIEF COMPLAINT: Nathan is a 62-year-old male who presented in the ED via EMS due to suicidal and homicidal thoughts.? He lives in a custodial setting in [place], [place].? Nathan receives services through the CRAB MEAT PROCESSOR program at [facility] and has diagnoses of record of schizophrenia and bipolar disorder.? He was assessed by [facility] and found to meet criteria for a voluntary psychiatric hospitalization.? He will remain at [facility] and be reassessed daily by [facility] until a placement can be secured for him.? Nathan has been cooperative and engaged well with staff. Last night he became very delusional and required medication but has been calm and appropriate today. VOLUNTARY FOR INPATIENT PSYCHIATRIC STABILIZATION.? Patient is appropriate in all interactions since arriving at [facility]; Pt has demonstrated appropriate coping and communication skills, has articulated his or her needs and concerns and is fully engaged during staff interactions. Safety plan has been established with patient, and care team, to adhere to patient goals, identify restrictions based on behavioral status, address nutrition, and determine allowed personal belongings, tools for hygiene and personal care. Determine level of activity including ambulation, level of supervision, visitors, and determine privileges based on behaviors and level of engagement by pt. SAFETY PLAN: 1. Will remain on suicide precautions. In Paper Clothes 2. Will remain in room under direct supervision of one-on-one staff at all times provided by CPSO, BILINGUAL TEACHER ASSISTANT, GROUP SOCIAL WORKER senior analyst market intelligence. 3. May have paper cups, plates, finger foods as well as a cardboard spoon with which to eat meals. 4. Follow [facility] Management of the Admitted Behavioral Health Patient policy. 5. Comfort bath system only, shower permitted at RN discretion. 6. No personal belongings-soft items permitted at RN discretion. 7. Visitors-none at this time. 8. Activities: soft cart items, television and other activities at RN discretion. 9.? Bathroom privileges with escort in the ED, available in room without limitation on Zone B. 10. Phone: contact limited to family at this time, via [facility] hospital phone at RN discretion. 11. Due to VOLUNTARY status, if patient wishes to leave [facility], staff will contact [facility] Crisis Screener ([phone]) and On-Call Elementary School Art Teacher ([phone]) as soon as possible. In the event of elopement, notify [facility] Police ([phone]). Patient is currently voluntarily at [facility] and seeking inpatient admission when a bed becomes available. [facility] Frontline Die Designer Apprentice will continue seeking placement. Please contact the Director Industrial Elementary School Art Teacher ([phone]) and [facility] Die Designer Apprentice ([phone]) for any needed changes in the Safety Plan. Safety plan has been provided to interdepartmental care team.
--- NOTE | 2022-12-28 16:41 | PDOC.CMSAFE ---
Date of service: 12/28/22 Time of Service: 16:41 Care Management Safety Plan Status Status: Interim Reason for Wait Reason for Wait: Medical Clearance Safety Plan Safety Plan: CHIEF COMPLAINT: Nathan is a 62-year-old male who presented in the ED via EMS due to suicidal and homicidal thoughts.? He lives in a alf setting in [place], [place].? Nathan receives services through the [employer] FLATBED DRIVER program at [facility] and has diagnoses of record of schizophrenia and bipolar disorder.? He was assessed by [facility] and found to meet criteria for a voluntary psychiatric hospitalization.? He will remain at [facility] and be reassessed daily by [facility] until a placement can be secured for him.? Nathan has been cooperative and engaged well with staff. Last night he became very delusional and required medication but has been calm and appropriate today. VOLUNTARY FOR INPATIENT PSYCHIATRIC STABILIZATION.? Patient is appropriate in all interactions since arriving at [facility]; Pt has demonstrated appropriate coping and communication skills, has articulated his or her needs and concerns and is fully engaged during staff interactions. Safety plan has been established with patient, and care team, to adhere to patient goals, identify restrictions based on behavioral status, address nutrition, and determine allowed personal belongings, tools for hygiene and personal care. Determine level of activity including ambulation, level of supervision, visitors, and determine privileges based on behaviors and level of engagement by pt. SAFETY PLAN: 1. Will remain on suicide precautions. In Paper Clothes 2. Will remain in room under direct supervision of one-on-one staff at all times provided by CPSO, NURSE MIDWIFE, OLIVE PITTER senior supply chain analyst. 3. May have paper cups, plates, finger foods as well as a cardboard spoon with which to eat meals. 4. Follow [facility] Management of the Admitted Behavioral Health Patient policy. 5. Comfort bath system only, shower permitted at RN discretion. 6. No personal belongings-soft items permitted at RN discretion. 7. Visitors-none at this time. 8. Activities: soft cart items, television and other activities at RN discretion. 9.? Bathroom privileges with escort in the ED, available in room without limitation on Zone B. 10. Phone: contact limited to family at this time, via [employer] hospital phone at RN discretion. 11. Due to VOLUNTARY status, if patient wishes to leave [facility], staff will contact [facility] Crisis Screener ([phone]) and On-Call Api Product Manager ([phone]) as soon as possible. In the event of elopement, notify [facility] Police ([phone]). Patient is currently voluntarily at [facility] and seeking inpatient admission when a bed becomes available. [facility] Frontline Utility Teller will continue seeking placement. Please contact the Realty Loan Specialist Api Product Manager ([phone]) and [facility] Utility Teller ([phone]) for any needed changes in the Safety Plan. Safety plan has been provided to interdepartmental care team.
[2022-12-28] MEDS: Enoxaparin 40 MG/0.4 ML SYR SC (16:58)
--- NOTE | 2022-12-28 17:30 | MHPN_ITS ---
Date of service: 12/27/22 Time of Service: 17:30 Mental Health Emergency Note Release [facility] release signed:: Yes Reason for Visit Client was taken via ambulance to [facility] due to concerns about the client's health and how the client was presenting during the client's psychotherapy session with Bharti Mccormick with the agency. This is a follow up assessment. In the last 2 weeks has the pt presented for ES prior to today?: Unknown Impression The client is a 62 year old, single, male who resides at [facility] in [facility]. He presents today sitting on the edge of his bed watching TV. He reported he is eating fine and that he slept better last night. The client notes that his mood has not changed. When asked about his SI he said I try not to think about it. He denied HI. He presents still as disheveled and unshaven. He reported that he is still interested in a hospital level of care however, he does not think that he will be accepted by [facility] due to how many michelle es he has been there in the past. When giving report back to the care mangers it was learned that the client has walking pneumonia therefore has now been changed back to medical. This clinician informed care management that he is interested in some coloring activities and some cards. Plan/Disposition Recommended Disposition: Other. Plan: The client will remain at [facility] pending medical clearance where he will then be reassessed by [facility] for treatment options. Person reported agreement to plan: Yes Reports/communication Outcome discussed with: ED/Personnel
[2022-12-28] MEDS: Nicotine 2 MG GUM BC (19:56)
[2022-12-28] MEDS: Docusate Sodium 100 MG CAP PO (19:56)
[2022-12-28] MEDS: Melatonin 3 MG TAB PO (19:56)
[2022-12-28] MEDS: Hydrocortisone 1% CR 30 GM TUBE TP (21:07)
[2022-12-28] MEDS: Atorvastatin 20 MG TAB PO (21:07)
[2022-12-28] MEDS: Divalproex Sodium 500 MG TAB.ER.24H PO (21:08)
[2022-12-28] MEDS: Prazosin 1 MG CAP 3 MG PO (21:08)
[2022-12-28] MEDS: Oxybutynin-CR 5 MG TABCR 30 MG PO (21:49)
[2022-12-29] VITALS (7 sets, daily range): BP systolic 110–136; BP diastolic 68–86; PULSE 58–76; RESP 16–22; TEMP 36.2–36.5; O2SAT 85–93
[2022-12-29] MEDS: amLODIPine 5 MG TAB PO (07:59)
[2022-12-29] MEDS: Hydrocortisone 1% CR 30 GM TUBE TP ×2 (07:59→20:27)
[2022-12-29] MEDS: Doxycycline Hyclate 100 MG CAP PO ×2 (07:59→20:25)
[2022-12-29] MEDS: Lisinopril 20 MG TAB PO ×2 (07:59→20:20)
[2022-12-29] MEDS: ARIPiprazole 5 MG TAB 10 MG PO (07:59)
[2022-12-29] MEDS: Calcium 600mg/Vit D 200U TAB 1 TAB PO (07:59)
[2022-12-29] MEDS: Nystatin POWDER 15 GM JAR TP ×2 (08:00→20:28)
[2022-12-29] MEDS: Umeclidinium 7 CAP INHALER 1 CAP IH (08:34)
[2022-12-29] MEDS: Budesonide/Formoterol 160/4.5 6 GM 60 PUFF INH IH ×2 (08:34→19:58)
[2022-12-29] MEDS: cefTRIAXone 2 GM/50 ML BAG IVPB (13:28)
[2022-12-29] MEDS: Acetaminophen 325 MG TAB PO ×2 (15:36→20:22)
--- NOTE | 2022-12-29 16:15 | PDOC.CMSAFE ---
Date of service: 12/29/22 Time of Service: 16:15 Care Management Safety Plan Status Status: Interim Reason for Wait Reason for Wait: Medical Clearance Safety Plan Safety Plan: CHIEF COMPLAINT: Nathan is a 62-year-old male who presented in the ED via EMS due to suicidal and homicidal thoughts.? He lives in a care home setting in [place], [place].? Nathan receives services through the DEBT RECOVERY OFFICER program at [facility] and has diagnoses of record of schizophrenia and bipolar disorder.? He was assessed by [facility] and found to meet criteria for a voluntary psychiatric hospitalization.? He will remain at [facility] and be reassessed daily by [facility] until a placement can be secured for him.? Nathan has been cooperative and engaged well with staff. Friday night he became very delusional and required medication but has been calm and appropriate since. VOLUNTARY FOR INPATIENT PSYCHIATRIC STABILIZATION.? Patient is appropriate in all interactions since arriving at [facility]; Pt has demonstrated appropriate coping and communication skills, has articulated his or her needs and concerns and is fully engaged during staff interactions. Safety plan has been established with patient, and care team, to adhere to patient goals, identify restrictions based on behavioral status, address nutrition, and determine allowed personal belongings, tools for hygiene and personal care. Determine level of activity including ambulation, level of supervision, visitors, and determine privileges based on behaviors and level of engagement by pt. SAFETY PLAN: 1. Will remain on suicide precautions. In Paper Clothes 2. Will remain in room under direct supervision of one-on-one staff at all times provided by CPSO, HEPATOLOGIST, KEG WASHER director of sales support. 3. May have paper cups, plates, finger foods as well as a cardboard spoon with which to eat meals. 4. Follow [facility] Management of the Admitted Behavioral Health Patient policy. 5. Comfort bath system only, shower permitted at RN discretion. 6. No personal belongings-soft items permitted at RN discretion. 7. Visitors-none at this time. 8. Activities: soft cart items, television and other activities at RN discretion. 9.? Bathroom privileges with escort in the ED, available in room without limitation on Zone B. 10. Phone: contact limited to family at this time, via [employer] hospital phone at RN discretion. 11. Due to VOLUNTARY status, if patient wishes to leave [facility], staff will contact [facility] Crisis Screener ([phone]) and On-Call Glaze Handler ([phone]) as soon as possible. In the event of elopement, notify [facility] Police ([phone]). Patient is currently voluntarily at [facility] and seeking inpatient admission when a bed becomes available. [facility] Frontline Equity Research Analyst will continue seeking placement. Please contact the Tuberculosis Specialist Glaze Handler ([phone]) and [facility] Equity Research Analyst ([phone]) for any needed changes in the Safety Plan. Safety plan has been provided to interdepartmental care team.
--- NOTE | 2022-12-29 17:08 | W.PM.PROGNOT ---
Date of Service Date of service: 12/29/22 Time of Service: 17:08 Assessment and Plan Assessment and plan (1) Schizophrenia: Assessment and plan: Continue Abilify. Now with PNA; mental health to be consulted when medically more stable. Qualifiers: Schizophrenia type: paranoid schizophrenia Qualified Code(s): F20.0 - Paranoid schizophrenia (2) Pneumonia: Status: Resolved Assessment and plan: CXR on 12/27 shows bibasilar infiltrates. Rocephin increased to 2gram Q24 hour. Doxycycline 100mg BID IS and acapella. Normal WBC. Afebrile. (3) Hallucinations: Status: Acute Assessment and plan: Cont Abilify and depakote. He did have more fulminate hallucinations last PM Will offer prn zyprexa. (4) Suicide ideation: Status: Acute Assessment and plan: Continue CPSO monitoring and consult mental health when PNA is stabilized/improved. (5) COPD (chronic obstructive pulmonary disease): Status: Chronic Assessment and plan: Continue his home nebulizers as well as his maintenance LABA and LAMA as well as supplemental O2. Qualifiers: COPD type: unspecified COPD Qualified Code(s): J44.9 - Chronic obstructive pulmonary disease, unspecified (6) HTN (hypertension): Status: Chronic Assessment and plan: Continue lisinopril and amlodipine Qualifiers: Hypertension type: primary hypertension Qualified Code(s): I10 - Essential (primary) hypertension (7) Diabetes: Status: Chronic Assessment and plan: Continue his metformin as well as monitoring of blood sugars ACHS and coverage with insulin sensitive sliding scale. Controlled Qualifiers: Diabetes mellitus type: type 2 Diabetes mellitus prison insulin use: without long wall mining machine tender use Diabetes mellitus complication status: without complication Qualified Code(s): E11.9 - Type 2 diabetes mellitus without complications (8) Discharge planning issues: Status: Acute Assessment and plan: Planning to transfer to in psychiatric facility when medically cleared. Subjective Subjective Patient reports: no new complaints, shortness of breath and afebrile; denies nausea or vomiting Exam Narrative Exam Narrative: Gen: Morbidly obese white male walking back to bed from bathroom. Nonlabored breathing but endorses feeling short of air. HEENT is unremarkable. MMM Lungs: clear and diminished. Heart is regular rate and rhythm without murmur Abdomen is obese soft and nontender normal bowel sounds Extremities trace of edema over his feet no cyanosis pedal pulses intact. Neuro exam grossly intact with no focal cranial nerve or motor or sensory deficits. Psych: flat affect. Objective Last Vital Signs Temp 36.2 C L 12/29/22 15: Pulse 58 L 12/29/22 15:26 Resp 22 12/29/22 15:26 BP 132/86 12/29/22 15: Pulse Ox 93 12/29/22 16:53 Time Spent with Patient Time Spent with Patient: 25-34 minutes Time was spent: preparing to see the patient(eg.review tests), obtaining and/or reviewing separately otained hiistory, ordering medications,tests, procedures, referring, communicating with other health before and after school daycare worker, indepentently interpreting results, counseling the patient and care coordination
[2022-12-29] MEDS: Enoxaparin 40 MG/0.4 ML SYR SC (17:10)
[2022-12-29] MEDS: Oxybutynin-CR 5 MG TABCR 30 MG PO (20:20)
[2022-12-29] MEDS: Prazosin 1 MG CAP 3 MG PO (20:21)
[2022-12-29] MEDS: Divalproex Sodium 500 MG TAB.ER.24H PO (20:21)
[2022-12-29] MEDS: Atorvastatin 20 MG TAB PO (20:21)
[2022-12-29] MEDS: Melatonin 3 MG TAB PO (20:21)
[2022-12-30] VITALS (10 sets, daily range): BP systolic 96–150; BP diastolic 58–89; PULSE 55–82; RESP 18–21; TEMP 36.2–37.1; O2SAT 82–97
--- NOTE | 2022-12-30 | DI.RAD_ITS ---
Exam(s) XR PORTABLE CHEST AP EXAM: XR PORTABLE CHEST AP CLINICAL HISTORY: resp failure TECHNIQUE: 2D digital imaging was performed of the chest. One image was obtained. An AP view was ob tained. COMPARISON: CR XR PORTABLE CHEST AP from 04/12/2022 CR XR CHEST 2V PA LATERAL from 12/27/2022 FINDINGS: MEDIASTINUM: Normal. HEART: Upper limits of normal given the AP projection. PULMONARY VASCULATURE: Normal. LUNGS: Improvement in the densities in the left lung base. Slight worsening of the pulmonary opaciti es in the right lung base. PLEURAL SPACE: No pleural effusion or pneumothorax. BONE:Within normal limits for the patient's age. OTHER FINDINGS:Normal. IMPRESSION: 1. Slight worsening of the opacities in the right lung base. 2. Clearing of the left lung. DATA REPOSITORY: RADIATION DOSE DELIVERED:
[2022-12-30] MEDS: Acetaminophen 325 MG TAB PO ×2 (00:10→20:44)
[2022-12-30] MEDS: ARIPiprazole 5 MG TAB 10 MG PO (08:24)
[2022-12-30] MEDS: Lisinopril 20 MG TAB PO ×2 (08:24→20:43)
[2022-12-30] MEDS: Calcium 600mg/Vit D 200U TAB 1 TAB PO (08:24)
[2022-12-30] MEDS: amLODIPine 5 MG TAB PO (08:24)
[2022-12-30] MEDS: Hydrocortisone 1% CR 30 GM TUBE TP ×2 (08:25→20:44)
[2022-12-30] MEDS: Doxycycline Hyclate 100 MG CAP PO ×2 (08:25→20:44)
[2022-12-30] MEDS: Umeclidinium 7 CAP INHALER 1 CAP IH (10:03)
[2022-12-30] MEDS: Budesonide/Formoterol 160/4.5 6 GM 60 PUFF INH IH ×2 (10:04→19:44)
[2022-12-30] MEDS: Normal Saline Flush 10 ML SYR IVP ×2 (10:09→15:39)
[2022-12-30] MEDS: Furosemide 40 MG/4 ML VIAL IVP ×2 (10:09→15:39)
[2022-12-30] MEDS: cefTRIAXone 2 GM/50 ML BAG IVPB (11:46)
--- NOTE | 2022-12-30 12:07 | PGE_ITS ---
Date of Service Date of service: 12/30/22 Time of Service: 12:07 Assessment and Plan Assessment and plan (1) Acute hypoxemic respiratory failure: Status: Acute Assessment and plan: Continues to require supplemental O2; now on 4L + PNA per imaging. Possibly pulmonary edema as well. See PNA below. Lasix 40mg IV BID (2) Pneumonia: Status: Resolved Assessment and plan: CXR on 12/27 shows bibasilar infiltrates. Rocephin increased to 2gram Q24 hour. Doxycycline 100mg BID Repeat CXR today showed clearing of the left lung but slight worsening of the opacities in the right lung base. IS and acapella. Normal WBC. Afebrile. (3) Schizophrenia: Assessment and plan: Continue Abilify. Now with PNA; mental health to be consulted when medically more stable. He has had some episodes of hallucinations. Qualifiers: Schizophrenia type: paranoid schizophrenia Qualified Code(s): F20.0 - Paranoid schizophrenia (4) Hallucinations: Status: Acute Assessment and plan: Cont Abilify and depakote. He did have more fulminate hallucinations last PM Will offer prn zyprexa. (5) Suicide ideation: Status: Acute Assessment and plan: Continue CPSO monitoring and consult mental health when PNA is stabilized/improved. (6) COPD (chronic obstructive pulmonary disease): Status: Chronic Assessment and plan: Continue his home nebulizers as well as his maintenance LABA and LAMA as well as supplemental O2. Qualifiers: COPD type: unspecified COPD Qualified Code(s): J44.9 - Chronic obstructive pulmonary disease, unspecified (7) HTN (hypertension): Status: Chronic Assessment and plan: Continue lisinopril and amlodipine Qualifiers: Hypertension type: primary hypertension Qualified Code(s): I10 - Essential (primary) hypertension (8) Diabetes: Status: Chronic Assessment and plan: Continue his metformin as well as monitoring of blood sugars ACHS and coverage with insulin sensitive sliding scale. Controlled Qualifiers: Diabetes mellitus type: type 2 Diabetes mellitus custodial insulin use: without intermediate frame tender use Diabetes mellitus complication status: without complication Qualified Code(s): E11.9 - Type 2 diabetes mellitus without complications (9) Discharge planning issues: Status: Acute Assessment and plan: Planning to transfer to in psychiatric facility when medically cleared. Subjective Subjective Patient reports: no new complaints, tolerating a regular diet, shortness of breath and afebrile; denies nausea or vomiting Exam Narrative Exam Narrative: Gen: Morbidly obese white male. Lying on his side in bed. NAD HEENT is unremarkable. MMM Lungs: clear and diminished. Heart is regular rate and rhythm without murmur Abdomen is obese soft and nontender normal bowel sounds Extremities trace of edema over his feet no cyanosis pedal pulses intact. Psych: flat affect. Objective Last Vital Signs Temp 36.2 C L 12/30/22 06:30 Pulse 74 12/30/22 08:15 Resp 16 12/29/22 21:03 BP 113/72 12/30/22 08:15 Pulse Ox 88 L 12/30/22 10:09 Time Spent with Patient Time Spent with Patient: 25-34 minutes Time was spent: preparing to see the patient(eg.review tests), obtaining and/or reviewing separately otained hiistory, ordering medications,tests, procedures, referring, communicating with other health physician primary care sports medicine, indepentently interpreting results, counseling the patient and care coordination
--- NOTE | 2022-12-30 16:21 | CMSP_ITS ---
Date of service: 12/30/22 Time of Service: 16:21 Care Management Safety Plan Status Status: Voluntary Reason for Wait Reason for Wait: Medical Clearance Safety Plan Safety Plan: CHIEF COMPLAINT: Nathan is a 62-year-old male who presented in the ED via EMS due to suicidal and homicidal thoughts.? He lives in a [facility] setting in [place], [place].? Nathan receives services through the METER INSPECTOR program at [facility] and has diagnoses of record of schizophrenia and bipolar disorder.? He was assessed by [facility] and found to meet criteria for a voluntary psychiatric hospitalization.? He will remain at [facility] and be reassessed daily by [facility], once he is medically cleared, until a placement can be secured for him.? Nathan has been cooperative and engaged well with staff. Friday night he became very delusional and required medication but has been calm and appropriate since. VOLUNTARY FOR INPATIENT PSYCHIATRIC STABILIZATION.? Patient is appropriate in all interactions since arriving at [facility]; Pt has demonstrated appropriate coping and communication skills, has articulated his or her needs and concerns and is fully engaged during staff interactions. Safety plan has been established with patient, and care team, to adhere to patient goals, identify restrictions based on behavioral status, address nutrition, and determine allowed personal belongings, tools for hygiene and personal care. Determine level of activity including ambulation, level of supervision, visitors, and determine privileges based on behaviors and level of engagement by pt. SAFETY PLAN: 1. Will remain on suicide precautions. In Paper Clothes 2. Will remain in room under direct supervision of one-on-one staff at all times provided by CPSO, ELECTRICAL LOGGING ENGINEER, SECURITY DISPATCHER meter readers supervisor. 3. May have paper cups, plates, finger foods as well as a cardboard spoon with which to eat meals. 4. Follow [facility] Management of the Admitted Behavioral Health Patient policy. 5. Comfort bath system only, shower permitted at RN discretion. 6. No personal belongings-soft items permitted at RN discretion. 7. Visitors-none at this time. 8. Activities: soft cart items, television and other activities at RN discretion. 9.? Bathroom privileges with escort in the ED, available in room without limitation on Zone B. 10. Phone: contact limited to family at this time, via [facility] phone at RN discretion. 11. Due to VOLUNTARY status, if patient wishes to leave [facility], staff will contact [facility] Crisis Screener ([phone]) and On-Call Boat Deckhand ([phone]) as soon as possible. In the event of elopement, notify [facility] Police ([phone]). Patient is currently voluntarily at [facility] and seeking inpatient admission when a bed becomes available. [facility] Frontline Data Modeling Specialist will continue seeking placement. Please contact the Supervisor Instrument Maintenance Boat Deckhand ([phone]) and [facility] Data Modeling Specialist ([phone]) for any needed changes in the Safety Plan. Safety plan has been provided to interdepartmental care team.
--- NOTE | 2022-12-30 16:21 | PDOC.CMSAFE ---
Date of service: 12/30/22 Time of Service: 16:21 Care Management Safety Plan Status Status: Voluntary Reason for Wait Reason for Wait: Medical Clearance Safety Plan Safety Plan: CHIEF COMPLAINT: Nathan is a 62-year-old male who presented in the ED via EMS due to suicidal and homicidal thoughts.? He lives in a half-way setting in [place], [place].? Nathan receives services through the DISTILLERY SUPERVISOR program at [facility] and has diagnoses of record of schizophrenia and bipolar disorder.? He was assessed by [facility] and found to meet criteria for a voluntary psychiatric hospitalization.? He will remain at [facility] and be reassessed daily by [facility], once he is medically cleared, until a placement can be secured for him.? Nathan has been cooperative and engaged well with staff. Friday night he became very delusional and required medication but has been calm and appropriate since. VOLUNTARY FOR INPATIENT PSYCHIATRIC STABILIZATION.? Patient is appropriate in all interactions since arriving at [facility]; Pt has demonstrated appropriate coping and communication skills, has articulated his or her needs and concerns and is fully engaged during staff interactions. Safety plan has been established with patient, and care team, to adhere to patient goals, identify restrictions based on behavioral status, address nutrition, and determine allowed personal belongings, tools for hygiene and personal care. Determine level of activity including ambulation, level of supervision, visitors, and determine privileges based on behaviors and level of engagement by pt. SAFETY PLAN: 1. Will remain on suicide precautions. In Paper Clothes 2. Will remain in room under direct supervision of one-on-one staff at all times provided by CPSO, HOME HEALTH BILLING SPECIALIST, SMT MACHINE OPERATOR fire code inspector. 3. May have paper cups, plates, finger foods as well as a cardboard spoon with which to eat meals. 4. Follow [facility] Management of the Admitted Behavioral Health Patient policy. 5. Comfort bath system only, shower permitted at RN discretion. 6. No personal belongings-soft items permitted at RN discretion. 7. Visitors-none at this time. 8. Activities: soft cart items, television and other activities at RN discretion. 9.? Bathroom privileges with escort in the ED, available in room without limitation on Zone B. 10. Phone: contact limited to family at this time, via [facility] phone at RN discretion. 11. Due to VOLUNTARY status, if patient wishes to leave [facility], staff will contact [facility] Crisis Screener ([phone]) and On-Call Lace Weaver ([phone]) as soon as possible. In the event of elopement, notify [facility] Police ([phone]). Patient is currently voluntarily at [facility] and seeking inpatient admission when a bed becomes available. [facility] Frontline Workforce Development Assistant will continue seeking placement. Please contact the Pointer Helper Lace Weaver ([phone]) and [facility] Workforce Development Assistant ([phone]) for any needed changes in the Safety Plan. Safety plan has been provided to interdepartmental care team.
--- NOTE | 2022-12-30 16:22 | PDOC.CMPRO ---
Date of service: 12/30/22 Time of Service: 16:22 Care Management Progress Note Progress Note Text Progress Note Text: S/O:Nathan was lying in bed when CM met with him. When asked how he was doing he answered not very good. He stated that he is feeling really anxious today. He did not have any PRN medication ordered so CM communicated the situation to the clinical coordinator who will follow up with the provider. Medically Nathan is about the same. His pneumonia has not improved. The left lung is clearing however his right lung is slightly worse. A: Nathan is a 62 year old man admitted on 12/26/22 with SI. He was incidentally found to have pneumonia. P: Nathan is seeking voluntary placement in a psychiatric facility. When he is medically cleared, he will be screened by [facility] and referrals will be sent.
[2022-12-30] MEDS: Enoxaparin 40 MG/0.4 ML SYR SC (18:03)
[2022-12-30] MEDS: Divalproex Sodium 500 MG TAB.ER.24H PO (20:43)
[2022-12-30] MEDS: Oxybutynin-CR 5 MG TABCR 30 MG PO (20:43)
[2022-12-30] MEDS: Melatonin 3 MG TAB PO (20:43)
[2022-12-30] MEDS: Atorvastatin 20 MG TAB PO (20:43)
[2022-12-30] MEDS: Prazosin 1 MG CAP 3 MG PO (20:43)
[2022-12-31] VITALS (8 sets, daily range): BP systolic 113–151; BP diastolic 67–79; PULSE 60–84; RESP 10–20; TEMP 35.7–36.9; O2SAT 89–95
--- NOTE | 2022-12-31 | DI.US_ITS ---
APPROVED REPORT EXAM: Comprehensive 2D, Doppler, and color-flow Echocardiogram Patient Location: In-Patient Room/Bed: 231 Commissioner Of Relocation Services: Briseyda Werner RDCS (AE) Indications: Acute respiratory failure, COPD Other Information Study Quality: Adequate. Technically limited study due to body habitus exam done supine. Conclusion Normal left ventricular wall thickness and chamber size. Ejection fraction is 58%. Wall motion is n ormal Right ventricle is dilated and hypocontractile. Diastolic flattening suggest right ventricular press ure/volume overload Left atrium is mildly dilated. Right atrium is moderately enlarged Trileaflet aortic valve without stenosis or regurgitation Normal mitral valve with mild regurgitation Normal tricuspid valve with mild regurgitation. Estimated right ventricular systolic pressure is 46 mmHg Wall motion Left Ventricle The left ventricle is normal size. The left ventricular systolic function is normal. The left ventric ular ejection fraction is within the normal range. There is normal left ventricular wall thickness. T here is normal LV segmental wall motion. There is no ventricular septal defect visualized. LVEF is 58 %. Right Ventricle Right ventricle is moderate to severely dilated. Right ventricle is moderately hypokinetic. Septum is flat in diastole consistent with RV volume overload. Atria Left atrium is mildly dilated. Right atrium is moderately dilated. The interatrial septum is intact w ith no evidence for an atrial septal defect. Aortic Valve The aortic valve is normal in structure. Aortic valve is trileaflet. There is no aortic valvular sten osis. No aortic regurgitation is present. Mitral Valve The mitral valve is normal in structure. No evidence of mitral valve stenosis. Mild mitral regurgitat ion. Tricuspid Valve The tricuspid valve is normal in structure. There is no tricuspid valve stenosis. Mild tricuspid regu rgitation. The RVSP is 45.7 mmHg. Pulmonic Valve The pulmonary valve is normal in structure. There is no pulmonic valvular stenosis. Mild pulmonic reg urgitation. Great Vessels The aortic root is normal in size. The ascending aorta is normal in size. Aortic arch is normal in ca liber. IVC is normal in size and collapses >50% with inspiration. Pericardium There is no pericardial effusion. 2D Dimensions IVSD d PLAX 1.18 cm M: 0.6-1.2 Ao Root d 3.01 cm M: 3.1 - 3.7 LVPW d PLAX 1.23 cm M: 0.6 - 1.2 Ao Asc Diam d 3.33 cm M: 2.6 - 3.4 LVID d PLAX 4.90 cm M: 4.2 - 5.8 LVDs 3.51 cm M: 2.5 - 4.0 LV EF Teichholz 54.6 % FS 28.35 % LV EDV (Teich) 112.8 mL LV ESV (Teich) 51.2 mL M-Mode TAPSE 2.08 cm (M/F) >1.7 Auto EF LV EDV A4C 102.1 mL LV EDV A2C 173.2 mL LV EDV BP 131.4 mL LV ESV A4C 41.6 mL LV ESV A2C 78.4 mL LV ESV BP 58.2 mL LVEF(%) A4C 59.2 % LVEF(%) A2C 54.7 % LVEF(%) BP 55.7 % LV SV A4C 60.5 ml LV SV A2C 94.8 ml LV SV BP 73.2 ml LV CO A4C 3.2 L/min LV CO A2C 4.7 L/min LV CO BP 4.0 L/min HR A4C 52.64 BPM HR A2C 49.99 BPM LV EDV Index (BP) LV Strain Long Pk Overal Avg (s) 15.13 RV Strain Global Peak Long. Strain A4C 15.77 Global Peak Long. Strain A4C FW 18.64 LA Volume LA Length A4C 6.8 cm LA Length A2C 6.2 cm LA Area A4C s 22.12 cm2 LA Area A2C s 24.77 cm2 LA Vol A4C A-L 61.47 mL LA Vol A2C A-L 83.77 mL LA Vol Biplane A-L 74.8 mL LA Vol/BSA A4C A-L LA Vol/BSA A2C A-L LA Vol/BSA BP A-L 33.7 mL/m2 LA Vol A4C MOD 57.5 mL LA Vol A2C MOD 78.5 mL LA Vol BP MOD 69.7 mL RA Volume RA Area A4C 29.4 cm2 RA ESV A4C (A-L) 107.3mL RA Vol/BSA A4C A-L RA Length A4C 6.8 cm RA ESV A4C (MOD) 105.1mL LV Diastology MV E' medial 0.062 (>0.07 m/s) MV E Vmax 0.81 (0.4-1.3 m/s) MV E/E' MED 13.09 (<14) MV A Vmax 0.30 (0.4-1.3 m/s) MV E' lateral 0.120 (>0.1 m/s) E/A Ratio 2.7 MV E/E' LAT 6.69 (<14) MV E' Average 0.091 m/s MV E/E'(average) 8.86 Aortic Valve AoV Vmax 1.39 m/s LVOT Vmax 1.20 m/s AoV Peak Grad 7.7 mmHg LVOT Peak Grad 5.8 mmHg AoV Area (Vmax) 2.46 cm2 LVOT VTI 0.232 m AoV VTI 0.257 m LVOT Mean Grad 3.0 mmHg AoV Mean Juvenal. 0.91 m/s LVOT SV 66.01 mL AoV Mean Grad 4.0 mmHg LVOT Diam s 1.90 cm AoV Area (VTI) 2.57 cm2 Velocity Ratio 0.86 Mitral Valve MV DT 187 (160-240 msec) MV Vmax TIPS 0.71 m/s MV Mean Grad 0.4 (<2mmHg) MV VTI 0.247 m Pulmonary Valve PV Vmax 1.16 (0.5-1.5 m/s) RVOT Vmax 0.65 m/s PV Peak Grad 5.4 mmHg RVOT Peak Gr. 1.7 mmHg PV Mean Juvenal 0.72 m/s RVOT VTI 0.127 m PV Mean Grad 2.5 mmHg RVOT Mean Gr. 0.8 mmHg Tricuspid Valve RA Pressure 3.00 mmHg TR Vmax 3.27 m/s TV S' 0.11 m/s TR Peak Grad 42.6 mmHg RVSP (TR) 45.7 mmHg
[2022-12-31 07:08] LABS: Platelet Count 163 10^3/uL (130-400)
[2022-12-31 07:30] LABS: Anion Gap -0.8 mmol/L (3-11); BUN 14 mg/dL (7-18); CO2 42.8 mmol/L (21.0-32.0); CREATININE 0.7 mg/dL (0.70-1.30); Calcium 9.1 mg/dL (8.5-10.1); Chloride 99 mmol/L (98-107); Estimated GFR 104.83 (mL/min/1.73m2); Glucose 102 mg/dL (74-106); Potassium 4.1 mmol/L (3.5-5.1); Sodium 141 mmol/L (136-145)
[2022-12-31] MEDS: amLODIPine 5 MG TAB PO (08:05)
[2022-12-31] MEDS: Calcium 600mg/Vit D 200U TAB 1 TAB PO (08:06)
[2022-12-31] MEDS: Doxycycline Hyclate 100 MG CAP PO ×2 (08:06→19:49)
[2022-12-31] MEDS: Lisinopril 20 MG TAB PO ×2 (08:06→19:49)
[2022-12-31] MEDS: ARIPiprazole 5 MG TAB 10 MG PO (08:12)
[2022-12-31] MEDS: Umeclidinium 7 CAP INHALER 1 CAP IH (08:14)
[2022-12-31] MEDS: Budesonide/Formoterol 160/4.5 6 GM 60 PUFF INH IH ×2 (08:14→19:32)
[2022-12-31] MEDS: Furosemide 40 MG/4 ML VIAL IVP (09:19)
[2022-12-31] MEDS: Normal Saline Flush 10 ML SYR IVP (09:19)
[2022-12-31] MEDS: Nystatin POWDER 15 GM JAR TP (09:49)
[2022-12-31] MEDS: Hydrocortisone 1% CR 30 GM TUBE TP (09:49)
[2022-12-31] MEDS: cefTRIAXone 2 GM/50 ML BAG IVPB (12:14)
--- NOTE | 2022-12-31 13:46 | W.PM.PROGNOT ---
Date of Service Date of service: 12/31/22 Time of Service: 13:46 Assessment and Plan Assessment and plan (1) Suicide ideation: Status: Acute Assessment and plan: Continue CPSO monitoring and consult mental health when PNA is stabilized/improved. (2) Acute and chronic respiratory failure: Status: Acute Assessment and plan: Continues to require supplemental O2; now on 4-5L Baseline at last admission noted to be 2L. + PNA per imaging. Possibly pulmonary edema as well. See PNA below. Lasix 40mg IV BID given w/o benefit and echocardiogram shows normal EF but does indicate likely pulmonary hypertension (dilated right ventricle). Stopped lasix. (3) Pneumonia: Status: Resolved Assessment and plan: CXR on 12/27 shows bibasilar infiltrates. Rocephin increased to 2gram Q24 hour. Stop Rocephin after next dose. Doxycycline 100mg BID Repeat CXR on 12/30 showed clearing of the left lung but slight worsening of the opacities in the right lung base. IS and acapella. Normal WBC. Afebrile. (4) Schizophrenia: Assessment and plan: Mental health screen today. Continues to affirm thoughts of SI. Continue Abilify. He has had some episodes of hallucinations. Qualifiers: Schizophrenia type: paranoid schizophrenia Qualified Code(s): F20.0 - Paranoid schizophrenia (5) Hallucinations: Status: Acute Assessment and plan: Cont Abilify and depakote. He did have more fulminate hallucinations the night of 12/29. Will offer prn zyprexa. (6) COPD (chronic obstructive pulmonary disease): Status: Chronic Assessment and plan: Continue his home nebulizers as well as his maintenance LABA and LAMA as well as supplemental O2. Qualifiers: COPD type: unspecified COPD Qualified Code(s): J44.9 - Chronic obstructive pulmonary disease, unspecified (7) HTN (hypertension): Status: Chronic Assessment and plan: Continue lisinopril and amlodipine Qualifiers: Hypertension type: primary hypertension Qualified Code(s): I10 - Essential (primary) hypertension (8) Diabetes: Status: Chronic Assessment and plan: Continue his metformin as well as monitoring of blood sugars ACHS and coverage with insulin sensitive sliding scale. Controlled Qualifiers: Diabetes mellitus type: type 2 Diabetes mellitus joint terminal attack controller insulin use: without joint terminal attack controller use Diabetes mellitus complication status: without complication Qualified Code(s): E11.9 - Type 2 diabetes mellitus without complications (9) Discharge planning issues: Status: Acute Assessment and plan: Planning to transfer to in psychiatric facility when medically cleared. Subjective Subjective Patient reports: no new complaints, tolerating a regular diet and afebrile; denies nausea, vomiting or shortness of breath Interval history since last seen: Cough improved. Mental health evaluated patient today. Exam Narrative Exam Narrative: Gen: Morbidly obese white male. Lying in bed. Withdrawn. HEENT is unremarkable. MMM Lungs: clear and diminished. Heart is regular rate and rhythm without murmur Abdomen is obese soft and nontender normal bowel sounds Extremities trace of edema over his feet no cyanosis pedal pulses intact. Psych: flat affect. Objective Last Vital Signs Temp 35.7 C L 12/31/22 07:46 Pulse 60 12/31/22 07:46 Resp 20 12/31/22 07:46 BP 127/78 12/31/22 07:46 Pulse Ox 89 L 12/31/22 08:18 Laboratory Results - last 24 hr 12/31/22 06:15 Plt Count 163 Sodium 141 Potassium 4.1 Chloride 99 Carbon Dioxide 42.8 H Anion Gap -0.8 L BUN 14 Creatinine 0.7 Est GFR (CKD-EPI 2020) 104.83 Glucose 102 Calcium 9.1 Time Spent with Patient Time Spent with Patient: 25-34 minutes Time was spent: preparing to see the patient(eg.review tests), obtaining and/or reviewing separately otained hiistory, ordering medications,tests, procedures, referring, communicating with other health care information associate, indepentently interpreting results, counseling the patient and care coordination
--- NOTE | 2022-12-31 15:08 | PDOC.MHCN ---
Date of service: 12/31/22 Time of Service: 12:15 PHQ-9 Over the last 2 weeks, how often have you been bothered by any of the following problems? 1. Little interest or pleasure in doing things: several days 2. Feeling down, depressed, or hopeless: nearly every day 3. Trouble falling or staying asleep, or sleeping too much: more than half the days 4. Feeling tired or having little energy: more than half the days 5. Poor appetite or overeating: several days 6. Feeling bad about yourself - or that you are a failure or have let yourself and your family down: not at all 7. Trouble concentrating on things, such as reading the newspaper or watching television: several days 8. Moving or speaking so slowly that other people could have noticed? - Or the opposite - being so fidgety or restless that you have been moving around a lot more than usual: several days 9. Thoughts that you would be better off or of hurting yourself in some way: several days Total score: 12 If you checked off any problems, how difficult have these problems made it for you to do your work, take care of things at home, or get along with other people?: very difficult Source: Developed by Drs. Anam Caraballo, Enriqueta Orellana, Eben Bai and colleagues, with an educational anthony from [employer]. Suicide Severity Rate CSSRS2 Have you been thinking about how you might do this?: No Have you had these thoughts and had some intention of acting on them?: No Have you started to work out or worked out the details of how to kill yourself? Do you intend to carry out this plan?: No CSSRS3 Have you ever done anything, started to do anything or prepared to do anything to end your life?: No CSSRS4 Was this within the past three months?: No Screening Score Total Score: 0 Screening: Negative Mental Health Emergency Note Release [facility] release signed:: Yes Reason for Visit Conduct a Mental Health Assessment In the last 2 weeks has the pt presented for ES prior to today?: No Client Information Well Housed: Yes Safety Risk/Harm to Self or Others Current Ideation to Harm Self or Others: No Risk: Does risk to harm exist?: yes. Risk: Low Risk Duty to warn indicated: No Asssessment/Mental Status Appearance: Other Attitude: Cooperative and Guarded Behavior: Other Speech: Soft and Slow Affect: Cogruent with mood Mood: Sad and Depressed Thought process: Poverty of content Hallucinations: No Delusions: No Attention: Unremarkable Perception: Not impaired Orientation: Fully orientated Memory: Intact Insight: Fair Judgement: Fair Neurovegetative Symptoms Sleep: Decrease Appetitie: Decrease Interests: Decrease Energy: Decrease Libido: Not applicable Substance Use: Other Drug Issues: Other Do you use nicotine?: No Have you used substances in the last 7 days?: No Additional Issues: Assaultive/Threatening Behavior: No Medical Concerns: No Client engaged in active self harm w/weapon: No Threatening to run away: No Child reported abuse/neglect: No Voluntarily presenting for services: Yes Domestic violence is a concern: No Extreme Psychosis or extreme behavior is present: No Impression Client suffers from depression. He has difficulties taking care of himself and wants to know why he is currently like that. Once he is deemed healthy enough to leave the hospital a Safety Plan will be written with this client before returning to his [facility]. He does recieve ongoing psychotherapy , med management, and couseling through [facility]. His senior living has 24/ staff that he can get help from when he asks for it. Plan/Disposition Recommended Disposition: [facility] Services [facility] Services: Therapy, WASTE MINIMIZATION TECHNICIAN and Therapy. Plan: Once deemed healthy to leave the hospital, he should return to his residence in [place], [place] aswell as maintain his upcoming appointments. Reports/communication Outcome discussed with: Other
--- NOTE | 2022-12-31 16:31 | CMPROGNOTE_ITS ---
Date of service: 12/31/22 Time of Service: 16:32 Care Management Progress Note Progress Note Text Progress Note Text: S/O: Cleared by [facility] Crisis Screener; will return to coordinate safety plan tomorrow. TERMINAL COMPUTER OPERATOR also came and reported Nathan is well supported at [facility] and has O2 at baseline. CM continues to follow. A: 62 year old male admitted to [facility] 12/26/22 for Acute exacerbation of schizophrenia, SI P: Nathan will return home when ready per MD, either with TERMINAL COMPUTER OPERATOR, [facility] transport. [facility] to coordinate safety plan prior to discharge, Nathan will resume O2, and follow up with community providers.
--- NOTE | 2022-12-31 16:31 | PDOC.CMPRO ---
Date of service: 12/31/22 Time of Service: 16:32 Care Management Progress Note Progress Note Text Progress Note Text: S/O: Cleared by [facility] Crisis Screener; will return to coordinate safety plan tomorrow. LUMBER TYING MACHINE OPERATOR also came and reported Nathan is well supported at [place] and has O2 at baseline. CM continues to follow. A: 62 year old male admitted to [facility] 12/26/22 for Acute exacerbation of schizophrenia, SI P: Nathan will return home when ready per MD, either with LUMBER TYING MACHINE OPERATOR, [facility] transport. [facility] to coordinate safety plan prior to discharge, Nathan will resume O2, and follow up with community providers.
[2022-12-31] MEDS: Enoxaparin 40 MG/0.4 ML SYR SC (17:36)
[2022-12-31] MEDS: Acetaminophen 325 MG TAB PO (19:49)
[2022-12-31] MEDS: Melatonin 3 MG TAB PO (21:32)
[2022-12-31] MEDS: Divalproex Sodium 500 MG TAB.ER.24H PO (21:32)
[2022-12-31] MEDS: Oxybutynin-CR 5 MG TABCR 30 MG PO (21:32)
[2022-12-31] MEDS: Prazosin 1 MG CAP 3 MG PO (21:32)
[2022-12-31] MEDS: Atorvastatin 20 MG TAB PO (21:32)
[2023-01-01] VITALS (8 sets, daily range): BP systolic 121–140; BP diastolic 65–84; PULSE 54–68; RESP 16–20; TEMP 36.1–36.8; O2SAT 85–93
[2023-01-01 07:24] LABS: BE (Venous) 18 mmol/L (-2-3); HCO3 (Venous) 43 mmol/L (23-28); O2 Sat (Venous) 91 %; TCO2 (Venous) 37 mmol/L (24-29); pH (Venous) 7.39 (7.31-7.41); pO2 (Venous) 61 mmHg
[2023-01-01 07:26] LABS: pCO2 (Venous) 71 mmHg (41-51)
[2023-01-01 07:42] LABS: Magnesium 1.7 mg/dL (1.8-2.4)
[2023-01-01] MEDS: Budesonide/Formoterol 160/4.5 6 GM 60 PUFF INH IH ×2 (07:55→19:52)
[2023-01-01] MEDS: Umeclidinium 7 CAP INHALER 1 CAP IH (07:56)
[2023-01-01] MEDS: ARIPiprazole 5 MG TAB 10 MG PO (08:59)
[2023-01-01] MEDS: Magnesium Oxide 400 MG TAB PO ×2 (08:59→20:06)
[2023-01-01] MEDS: amLODIPine 5 MG TAB PO (08:59)
[2023-01-01] MEDS: Lisinopril 20 MG TAB PO ×2 (08:59→20:06)
[2023-01-01] MEDS: Calcium 600mg/Vit D 200U TAB 1 TAB PO (08:59)
[2023-01-01] MEDS: Doxycycline Hyclate 100 MG CAP PO ×2 (08:59→20:06)
--- NOTE | 2023-01-01 12:24 | RESPIRATORY ---
RT called Pt. DME which is [facility] pt. uses O2 4L/min at home.
[2023-01-01] MEDS: cefTRIAXone 2 GM/50 ML BAG IVPB (12:47)
--- NOTE | 2023-01-01 15:24 | CMPROGNOTE_ITS ---
Date of service: 01/01/23 Time of Service: 15:24 Care Management Progress Note Progress Note Text Progress Note Text: S/O: Nathan has been cleared by [facility] and will likely return to [place] later this week. His pneumoniaCleared by [facility] Crisis Screener; will return to coordinate safety plan tomorrow. BOILER PLANT OPERATOR also came and reported Nathan is well supported at [place] and has O2 at baseline. CM continues to follow. A: 62 year old male admitted to [facility] 12/26/22 for Acute exacerbation of schizophrenia, SI P: Nathan will return to [place] when medically cleared for discharge. [facility] will write a safety plan at the time of discharge. Nathan will transport with staff from the facility or RCT or BOILER PLANT OPERATOR and will follow up with his community providers and plan of care.Nathan will resume use of his home O2. CM will follow and continue to assess for discharge needs.
--- NOTE | 2023-01-01 15:24 | PDOC.CMPRO ---
Date of service: 01/01/23 Time of Service: 15:24 Care Management Progress Note Progress Note Text Progress Note Text: S/O: Nathan has been cleared by [facility] and will likely return to [place] later this week. His pneumoniaCleared by [facility] Crisis Screener; will return to coordinate safety plan tomorrow. NEON GLASS BLOWER also came and reported Nathan is well supported at [place] and has O2 at baseline. CM continues to follow. A: 62 year old male admitted to [facility] 12/26/22 for Acute exacerbation of schizophrenia, SI P: Nathan will return to [place] when medically cleared for discharge. [facility] will write a safety plan at the time of discharge. Nathan will transport with staff from the facility or [facility] or [employer]OWER and will follow up with his community providers and plan of care.Nathan will resume use of his home O2. CM will follow and continue to assess for discharge needs.
--- NOTE | 2023-01-01 16:25 | W.PM.PROGNOT ---
Date of Service Date of service: 01/01/23 Time of Service: 16:25 Assessment and Plan Assessment and plan (1) Acute and chronic respiratory failure: Status: Acute Assessment and plan: at baseline supplemental O2; had bipap machine but return for non use. should follow up outpatient for updated sleep study. pneumonia per imaging. See plan below. echocardiogram shows normal EF but does indicate likely pulmonary hypertension (dilated right ventricle). Stopped lasix as no improvement in symptoms after attempt to diurese. (2) Pneumonia: Status: Acute Assessment and plan: CXR on 12/27 shows bibasilar infiltrates. Doxycycline 100mg BID for 5 days Repeat CXR on 12/30 showed clearing of the left lung but slight worsening of the opacities in the right lung base. IS and acapella. Normal WBC. Afebrile. (3) Schizophrenia: Assessment and plan: Mental health screen with clearance. Continue Abilify. He has had some episodes of hallucinations. routine outpatient follow up stable. Qualifiers: Schizophrenia type: paranoid schizophrenia Qualified Code(s): F20.0 - Paranoid schizophrenia (4) Hallucinations: Status: Acute Assessment and plan: Cont Abilify and depakote. He did have more fulminate hallucinations the night of 12/29. Will offer prn zyprexa. (5) COPD (chronic obstructive pulmonary disease): Status: Chronic Assessment and plan: Continue his home nebulizers as well as his maintenance LABA and LAMA as well as supplemental O2. Qualifiers: COPD type: unspecified COPD Qualified Code(s): J44.9 - Chronic obstructive pulmonary disease, unspecified (6) HTN (hypertension): Status: Chronic Assessment and plan: Continue lisinopril and amlodipine Qualifiers: Hypertension type: primary hypertension Qualified Code(s): I10 - Essential (primary) hypertension (7) Diabetes: Status: Chronic Assessment and plan: Continue his metformin as well as monitoring of blood sugars ACHS and coverage with insulin sensitive sliding scale. Controlled Qualifiers: Diabetes mellitus complication status: without complication Diabetes mellitus group home insulin use: without group home use Diabetes mellitus type: type 2 Qualified Code(s): E11.9 - Type 2 diabetes mellitus without complications (8) Discharge planning issues: Status: Acute Assessment and plan: will discharge to home tomorrow if remains medically stable. discussed with Dr Whiting Subjective Subjective Patient reports: no new complaints, feels better, tolerating liquids well, tolerating a regular diet and afebrile; denies shortness of breath (feels at bedside) Objective Last Vital Signs Temp 36.8 C 01/01/23 15:13 Pulse 64 01/01/23 15:13 Resp 17 01/01/23 15:13 BP 126/78 01/01/23 15:13 Pulse Ox 89 L 01/01/23 11:55 Laboratory Results - last 24 hr 01/01/23 01/01/23 07:15 08:15 WBC Cancelled RBC Cancelled Hgb Cancelled Hct Cancelled MCV Cancelled MCH Cancelled MCHC Cancelled RDW Cancelled Plt Count Cancelled MPV Cancelled Immature Gran % Cancelled Neutrophils % Cancelled Band Neutrophils % Cancelled Lymphocytes % Cancelled Atypical Lymphs % Cancelled Monocytes % Cancelled Eosinophils % Cancelled Basophils % Cancelled Metamyelocytes % Cancelled Myelocytes % Cancelled Promyelocytes % Cancelled Other Cells % Cancelled Nucleated RBC % Cancelled Absolute Neutrophils Cancelled Absolute Lymphocytes Cancelled Absolute Monocytes Cancelled Absolute Eosinophils Cancelled Absolute Basophils Cancelled RBC Morphology Cancelled Polychromasia Cancelled Hypochromasia Cancelled Poikilocytosis Cancelled Basophilic Stippling Cancelled Anisocytosis Cancelled Microcytosis Cancelled Macrocytosis Cancelled Spherocytes Cancelled Tear Drop Cells Cancelled Ovalocytes Cancelled Stomatocytes Cancelled [place] Bodies Cancelled [place] Cells/Echinocytes Cancelled Acanthocytes (Spur) Cancelled Schistocytes Cancelled VBG pH 7.39 VBG pCO2 71 H* VBG pO2 61 VBG HCO3 43 H VBG Total CO2 37 H VBG O2 Saturation 91 VBG Base Excess 18 H Sodium Cancelled Potassium Cancelled Chloride Cancelled Carbon Dioxide Cancelled Anion Gap Cancelled BUN Cancelled Creatinine Cancelled Est GFR (CKD-EPI 2020) Cancelled Glucose Cancelled Calcium Cancelled Magnesium 1.7 L Cancelled Time Spent with Patient Time Spent with Patient: 25-34 minutes Time was spent: preparing to see the patient(eg.review tests), obtaining and/or reviewing separately otained hiistory, ordering medications,tests, procedures, indepentently interpreting results and counseling the patient
[2023-01-01] MEDS: Acetaminophen 325 MG TAB PO (20:07)
[2023-01-01] MEDS: Prazosin 1 MG CAP 3 MG PO (21:47)
[2023-01-01] MEDS: Divalproex Sodium 500 MG TAB.ER.24H PO (21:47)
[2023-01-01] MEDS: Melatonin 3 MG TAB PO (21:47)
[2023-01-01] MEDS: Atorvastatin 20 MG TAB PO (21:47)
[2023-01-01] MEDS: Oxybutynin-CR 5 MG TABCR 30 MG PO (21:47)
[2023-01-02 00:20] VITALS: PULSE 68; RESP 21; O2SAT 93
[2023-01-02 03:36] VITALS: RESP 17
[2023-01-02 06:54] LABS: Abs Immature Grans 0.02 10^3/uL (0.0-0.06); Absolute Basophil Count 0.03 10^3/uL (0.0-0.2); Absolute Eosinophil Count 0.18 10^3/uL (0.0-0.7); Absolute Lymphocyte Count 1.46 10^3/uL (1.2-3.4); Absolute Monocyte Count 0.63 10^3/uL (0.1-0.8); Absolute Neutrophil Count 2.61 10^3/uL (1.2-6.7); Basophils % 0.6; Eosinophils % 3.7; HCT 47.6 % (40.0-50.0); HGB 15.3 g/dL (13.5-17.5); Immature Grans % 0.4; Lymphocytes % 29.6; MCH 29.8 pg (27.0-33.0); MCHC 32.1 % (32.0-36.0); MCV 93 fL (80-95); MPV 9.9 fL (8.0-11.0); Monocytes % 12.8; Neutrophils % 52.9; Platelet Count 166 10^3/uL (130-400); RBC 5.13 10^6/uL (4.36-5.78); RDW 14.4 % (11.8-14.1); WBC 4.93 10^3/uL (4.4-10.8)
[2023-01-02 07:08] LABS: Anion Gap 4.3 mmol/L (3-11); BUN 16 mg/dL (7-18); CO2 37.7 mmol/L (21.0-32.0); CREATININE 0.6 mg/dL (0.70-1.30); Calcium 9.2 mg/dL (8.5-10.1); Chloride 99 mmol/L (98-107); Estimated GFR 109.83 (mL/min/1.73m2); Glucose 103 mg/dL (74-106); Magnesium 1.8 mg/dL (1.8-2.4); Potassium 4.1 mmol/L (3.5-5.1); Sodium 141 mmol/L (136-145)
[2023-01-02] MEDS: Umeclidinium 7 CAP INHALER 1 CAP IH (07:53)
[2023-01-02] MEDS: Budesonide/Formoterol 160/4.5 6 GM 60 PUFF INH IH (07:53)
[2023-01-02 07:56] VITALS: PULSE 64; RESP 20; O2SAT 91
[2023-01-02 08:17] VITALS: BP 113/73; PULSE 59; RESP 18; TEMP 35.7; O2SAT 86
--- NOTE | 2023-01-02 09:11 | PDOC.CMPRO ---
Date of service: 01/02/23 Time of Service: 09:11 Care Management Progress Note Progress Note Text Progress Note Text: S/O: Nathan A: 62 year old male admitted to [facility] 12/26/22 for Acute exacerbation of schizophrenia, SI P: Nathan will return to [place] when medically cleared for discharge. [facility] will write a safety plan at the time of discharge. Nathan will transport with staff from the facility or [facility] or DEVELOPMENT ASSOCIATE and will follow up with his community providers and plan of care.Nathan will resume use of his home O2. CM will follow and continue to assess for discharge needs.
[2023-01-02] MEDS: Magnesium Oxide 400 MG TAB PO (09:18)
[2023-01-02] MEDS: amLODIPine 5 MG TAB PO (09:18)
[2023-01-02] MEDS: ARIPiprazole 5 MG TAB 10 MG PO (09:19)
[2023-01-02] MEDS: Calcium 600mg/Vit D 200U TAB 1 TAB PO (09:19)
[2023-01-02] MEDS: Doxycycline Hyclate 100 MG CAP PO (09:19)
[2023-01-02] MEDS: Lisinopril 20 MG TAB PO (09:19)
[2023-01-02] MEDS: Nystatin POWDER 15 GM JAR TP (09:27)
[2023-01-02] MEDS: Hydrocortisone 1% CR 30 GM TUBE TP (09:27)
[2023-01-02] MEDS: Acetaminophen 325 MG TAB PO (09:39)
--- NOTE | 2023-01-02 12:55 | DSE_ITS ---
Date of service: 01/02/23 Time of Service: 12:55 DS: Diagnosis Discharge Diagnosis (1) Acute and chronic respiratory failure: Status: Acute (2) Pneumonia: Status: Acute (3) Schizophrenia: (4) Hallucinations: Status: Acute (5) COPD (chronic obstructive pulmonary disease): Status: Chronic (6) HTN (hypertension): Status: Chronic (7) Diabetes: Status: Chronic Discharge Plan Disposition Patient Disposition: Home Condition: Improving Discharge Details Reason For Visit: Acute Exacerbation of Schizophenia, Suicidal Ideat Admit Date/Time: 12/26/22 18:06 Admit Provider: Konrad Sampson Attending Provider: Konrad Sampson Primary Care Provider: MIMI PEREZ Hospital Course Hospital Course: This is a 62-year-old male with a history of schizophrenia, COPD, essential pretension, diabetes mellitus type 2, who first presented to the emergency department on 12/25/2022 with visual and auditory hallucinations people telling him to kill himself and that its the end of the world. He had no specific plan for how to kill himself. Just the people are telling him is the end of the world that he should . He was medically cleared for mental health evaluation. Overnight noted to have increased cough and oxygen requirements, a chest xray was obtained that does show bibasilar infiltrates. He was started on rocephin and doxycycline and responded to treatment. He was weaned down to his home oxygen prescription and reambulated safely. mental health continued to follow and he was no longer with suicidal thoughts and deemed safe for discharge to home with no new services. he will be discharged on doxycycline to complete 5 days. discharge discussed with DR Whiting. Home Meds and New Rx's Prescriptions: New doxycycline hyclate 100 mg Capsule 100 mg PO BID Qty: 7 0RF Continued metformin 750 mg tablet extended release 24 hr 750 mg PO DAILY aripiprazole [Abilify] 5 mg tablet 10 mg PO DAILY Incruse Ellipta 62.5 mcg/actuation blister with device 1 inh inhalation DAILY melatonin 3 mg capsule 3 mg PO HS PRN ipratropium-albuterol 0.5 mg-3 mg(2.5 mg base)/3 mL solution for nebulization 3 ml inhalation Q4H PRN (Reason: wheezing) Qty: 540 12RF nicotine (polacrilex) 2 mg gum 2 mg buccal Q2H PRN atorvastatin 20 mg tablet 20 mg PO HS calcium carbonate-vitamin D3 600 mg-20 mcg (800 unit) tablet 1 tab PO DAILY (DME) blood-glucose meter Misc See Rx Instructions .Route Rx Instructions: As directed (DME) Disposable Brief Jumbo X-Large Misc See Rx Instructions .Route Rx Instructions: As directed (DME) Blood Glucose Test Strip See Rx Instructions .Route Rx Instructions: As directed (DME) lancets [OneTouch UltraSoft Lancets] Misc See Rx Instructions .Route Rx Instructions: As directed (DME) oxygen and supplies 2 liters 0 .Route .MEDSUPPLY nystatin 100,000 unit/gram powder 1 applic topical BID oxybutynin chloride 15 mg tablet extended release 24hr 30 mg PO QHS Qty: 180 3RF hydrocortisone 1 % Cream 1 applic topical BID budesonide-formoterol [Symbicort] 160-4.5 mcg/actuation HFA aerosol inhaler See Rx Instructions .ROUTE .COMPLEX Rx Instructions: 2 puffs BID prazosin 1 mg capsule 3 mg PO HS lisinopril 20 mg tablet 20 mg PO BID amlodipine 5 mg tablet 5 mg PO DAILY divalproex 500 mg tablet extended release 24 hr 500 mg PO HS cyanocobalamin (vitamin B-12) [Vitamin B-12] 5,000 mcg Tablet, Sublingual 5,000 mcg SUBLINGUAL DAILY Discharge Instructions Instructions: Suicide Prevention (DC), Pneumonia (DC) Additional Instructions: it was noted that your cpap/bipap was returned for non use. you should follow up outpatient with your primary care provider to have a sleep study scheduled to evaluate you so your sleep apnea can be appropriately treated. use your oxygen as directed. Stand Alone Forms: Nursing Discharge Form Referrals: MIMI PEREZ NP [Primary Care Provider] - 01/06/23 9:40 am Activity:: Activity as Tolerated Equipment/Supplies:: No Equipment Needed Diet:: As Tolerated Discharge Orders Discharge Orders: Discharge Order (Routine); Ordered 01/02/23 Ordered By: Rosaline Justice DS: Summary Time Spent with Patient providing and/or coordinating discharge services: Greater than 30 minutes Status at Discharge Functional status at discharge: independent ambulation Overall status at discharge: patient is progressing back to baseline Mental Status: mental status grossly normal Speech and Movement: speech and movement normal Mood: congruent mood Affect: blunted Exam Const General: comfortable, disheveled and ill appearing (older than stated age) chronically Nutritional Appearance: overweight Orientation: alert, awake and oriented x3 HENMT Head: normal to inspection, normocephalic and atraumatic Face and sinus: normal facial exam Mouth: oral mucosae normal Chest Chest: normal inspection of the chest Resp Effort & Inspection: normal respiratory effort Auscultation: diminished lung sounds bilaterally, no rhonchi and wheezes Cardio Rate: regular rate Rhythm: regular rhythm GI Inspection: normal to inspection Skin General skin exam: dry skin and turgor decreased Neuro General: patient alert, patient awake, patient oriented x3, tone normal and moves all extremities Extrem General: normal to inspection and full ROM Psych Appearance: disheveled Mental Status: mental status grossly normal Speech and Movement: speech and movement normal Mood: congruent mood Affect: blunted Attitude: cooperative Thought Process: normal Thought Content: normal Insight: limited Judgment: limited DS: Data Vitals/I&O Vitals and I&O: Vital Signs Temperature 35.7 C L 01/02/23 08:17 Temperature Source Tympanic 01/02/23 08:17 Pulse 59 L 01/02/23 08:17 Pulse Rhythm Regular 01/02/23 09:45 Pulse 61 12/26/22 03:46 Respiratory Rate 18 01/02/23 08:17 Respiratory Effort Normal, Non-Labored 01/02/23 09:45 Respiratory Depth Normal 01/02/23 09:45 Respiratory Pattern Normal 01/02/23 09:45 Blood Pressure 113/73 01/02/23 08:17 Blood Pressure Mean 101 12/26/22 03:46 Blood Pressure Position Sitting 12/25/22 14:31 Pulse Oximetry 86 L 01/02/23 08:17 Oxygen Delivery Method Nasal Cannula 01/02/23 08:17 Oxygen Flow Rate 5 01/02/23 08:17 Fraction of Inspired Oxygen (FIO2) 35 01/02/23 07:56 Pain Level 8 01/02/23 09:39 Comment Using ear sensor to recheck due to low sat when checked earlier, did get higher reading of 88%. CC notified RT of low sats this a.m. 12/30/22 06:59 Intake & Output 01/01/23 01/02/23 01/02/23 23:59 11:59 23:59 Intake Total 50 / 650 610 / 610 Output Total 500 / 500 Balance 50 / 650 110 / 110 Weight 105.4 kg Intake: IV 50 / 50 10 / 10 Oral 600 / 600 Output: Urine 500 / 500 Other: Urine Color Yellow Yellow Urine Appearance Clear Clear Urine Odor None Normal Comment unmeasured void pt declined needing to go to bathroom when asked Voiding Methods Toilet Toilet Data Completed and Pending Labs on day of discharge: Labs from last 24 hours 01/02/23 06:25 WBC 4.93 RBC 5.13 Hgb 15.3 Hct 47.6 MCV 93 MCH 29.8 MCHC 32.1 RDW 14.4 H Plt Count 166 MPV 9.9 Immature Gran % 0.4 Neutrophils % 52.9 Lymphocytes % 29.6 Monocytes % 12.8 Eosinophils % 3.7 Basophils % 0.6 Nucleated RBC % 0.0 Absolute Neutrophils 2.61 Absolute Lymphocytes 1.46 Absolute Monocytes 0.63 Absolute Eosinophils 0.18 Absolute Basophils 0.03 Sodium 141 Potassium 4.1 Chloride 99 Carbon Dioxide 37.7 H Anion Gap 4.3 BUN 16 Creatinine 0.6 L Est GFR (CKD-EPI 2020) 109.83 Glucose 103 Calcium 9.2 Magnesium 1.8 PFSH All Active Problems (Updated 01/01/23 @ 22:42 by Rosaline Justice, TIP) Acute and chronic respiratory failure (Acute) Acute hypoxemic respiratory failure (Acute) Discharge planning issues (Acute) COPD (chronic obstructive pulmonary disease) (Chronic) Hallucinations (Acute) Suicide ideation (Acute) Headache (Acute) Seborrheic dermatitis (Acute) COVID-19 (Acute) Altered mental status (Acute) Septic shock (Acute) Right bundle branch block (Acute) Elevated troponin (Acute) Elevated LFTs (Acute) MICHAEL (acute kidney injury) (Acute) Hyperkalemia (Acute) Lactic acidosis (Acute) COVID (Acute) Respiratory failure with hypoxia and hypercapnia (Acute) Nicotine dependence, cigarettes, uncomplicated (Acute) Respiratory failure with hypoxia (Acute) Hypoxemia (Acute) Sleep apnea (Acute) Depression (Chronic) Tobacco dependence (Acute) Pneumonia (Acute) Supplemental oxygen dependent (Acute) Bipolar 1 disorder (Acute) Obesity (Chronic) Incontinence of urine (Acute) Diabetes (Chronic) DVT prophylaxis (Acute) HTN (hypertension) (Chronic) Obstructive sleep apnea (Chronic) COPD (chronic obstructive pulmonary disease) (Chronic) Suicidal ideations (Acute) Hallucinations (Acute) Hypertension (Chronic) Medical History Palliative care patient Obesity (BMI 30-39.9) Hyperlipidemia Schizophrenia Family History Other Adopted Social History Smoking/Tobacco Use Status: Current every day Tobacco Type: cigarettes Smoking packs per day: 0 Smoking cigarettes per day: 0.0 Years smoked: 30 Smoking pack- years: 0.00 Tobacco: How many years used: 30 Smoking risk assessment performed?: Yes Alcohol Intake: former Drug use: Never Substance use type: does not use Caregiver/Support person: No Household members: none Housing: assisted living facility Number of Children: 0 Communication Needs: Hard of Hearing and Corrective Lenses Education Level: high school Do you need help understanding health information?: Always current occupation: disabled due to mental illness Pets and animals: No Current gender identity: male What is your relationship status?: never How often do you talk on the phone with friends or family?: never How often do you get together with friends or relatives?: never Panel score (0-1 are the most socially isolated patients): 0 What type of physical activity do you participate in: none and sedentary lifestyle Frequency: does not exercise Special mannie needs: No Seatbelt use: always Do you feel safe at home: No (pt states feeling unsafe but cannot explain why.) Do you feel safe in your relationship?: Yes Time Spent with Patient Time Spent with Patient: 45-69 minutes Time was spent: preparing to see the patient(eg.review tests), obtaining and/or reviewing separately otained hiistory, ordering medications,tests, procedures, indepentently interpreting results and counseling the patient
--- NOTE | 2023-01-02 13:58 | CMDISCH_ITS ---
Date of service: 01/02/23 Time of Service: 13:58 LACE Index Scoring Tool Questions: Length of Stay (in days): 7 - 13 Was the patient admitted via the E.D.?: Yes Comorbidities: Diabetes w/o Complication and Chronic Pulmonary Disease E.D. Visits: 2 Answers: Total Score: 13 Risk of Readmission: High Risk Care Management Discharge Plan Reason for Hospitalization: depression with SI and pneumonia Discharge Plan: Nathan will return to [place] with a resumption of his PHYSICIAN OFFICE REP community support. He will transport with staff from the facility and will follow up with his community providers and plan of care. Nathan will resume use of his home O2. Patient/Family Education Needs: Review discharge instructions, follow up plan, limitations, discuss Ask Me Three. MH Services (Omit if N/A) Current MH Services: PHYSICIAN OFFICE REP
== END 2023-01-02 14:57 | disposition home or self-care (01) | DRG 885 ==
LOC: ER 12-26 16:28 → MS 12-26 18:14
PROVIDERS: Family Medicine; General Practice; Internal Medicine; Nurse Practitioner Acute Care; Admitting Provider Internal Medicine; Emergency Provider Student in an Organized Health Care Education/Training Program; PCP Nurse Practitioner Family; Visit Provider Internal Medicine
DX: F20.0 Paranoid schizophrenia (principal); J18.9 Pneumonia, unspecified organism; J96.21 Acute and chronic respiratory failure with hypoxia; R45.851 Suicidal ideations; J44.0 Chronic obstructive pulmonary disease with (acute) lower respiratory infection; I10 Essential (primary) hypertension; E11.9 Type 2 diabetes mellitus without complications; G47.33 Obstructive sleep apnea (adult) (pediatric); Z99.81 Dependence on supplemental oxygen; R51.9 Headache, unspecified; I45.19 Other right bundle-branch block; F17.210 Nicotine dependence, cigarettes, uncomplicated; F31.9 Bipolar disorder, unspecified; Z68.34 Body mass index [BMI] 34.0-34.9, adult; E78.5 Hyperlipidemia, unspecified; E66.01 Morbid (severe) obesity due to excess calories
CPT/HCPCS: 00123; 36415; 80048; 80053; 80307; 82805; 85027; 87635; 93005; 94618; 94640; 96127; 99222; 99285; J1650; 71045; 71046; 80320; 81003; 81015; 82140; 83036; 83735; 84443; 85025; 85049; 93010; 93306; 94660; 94664; 94667; 94668; 94760; 99232; 99233; 99239; J1940; J3490

== ENCOUNTER → 2023-01-20 14:54 | Outpatient (BNVA) | payer MEDICARE, MEDICAID, SELFPAY | PROVIDERS: PCP Nurse Practitioner Family; Referring Provider Nurse Practitioner Family; Visit Provider Student in an Organized Health Care Education/Training Program | DX: J44.9 Chronic obstructive pulmonary disease, unspecified (principal); Z79.51 Long term (current) use of inhaled steroids; Z79.899 Other long term (current) drug therapy; F17.210 Nicotine dependence, cigarettes, uncomplicated; J96.91 Respiratory failure, unspecified with hypoxia; G47.30 Sleep apnea, unspecified; I10 Essential (primary) hypertension | CPT/HCPCS: 99214 ==

== ENCOUNTER 2023-02-04 15:10 | Outpatient (CLI) | payer MEDICARE, MEDICAID, SELFPAY ==
[2023-02-04 15:40] LABS: VALPROIC ACID < 3 ug/mL
== END 2023-02-04 15:11 | disposition home or self-care (01) ==
LOC: LBO 15:10
PROVIDERS: PCP Nurse Practitioner Family; Visit Provider Registered Nurse
DX: F31.9 Bipolar disorder, unspecified (principal); Z51.81 Encounter for therapeutic drug level monitoring; Z79.899 Other long term (current) drug therapy
CPT/HCPCS: 36415; 80164

== ENCOUNTER 2023-02-19 13:59 | Inpatient (IN) | payer MEDICARE, MEDICAID, SELFPAY ==
[2023-02-19] VITALS (61 sets, daily range): BP systolic 103–155; BP diastolic 70–102; PULSE 52–185; RESP 2–22; TEMP 36.8; O2SAT 75–98
--- NOTE | 2023-02-19 14:00 | RT.EKG_ITS ---
APPROVED REPORT Exam: Resting ECG Reason for Exam: SOB Patient Location: E HR:60 bpm ECG Measurements Heart Rate 60 AXIS NJ 142 P 45 QRSd 151 QRS 84 QT 445 T -69 QTc 444 Conclusion Sinus rhythm...normal P axis, V-rate 60- 99 Right bundle branch block...QRSd>120, terminal axis(90,270) Repol abnrm suggests ischemia, lateral leads...ST dep, T neg, I aVL V5 V6 sinus rhythm, RBBB unchanged
--- NOTE | 2023-02-19 14:15 | DI.RAD_ITS ---
Exam(s) XR PORTABLE CHEST AP EXAM: XR PORTABLE CHEST AP CLINICAL HISTORY: cough, copd. TECHNIQUE: 2D digital imaging was performed. COMPARISON: CT CT CHEST WO from 06/04/2022 CR XR CHEST 2V PA LATERAL from 12/27/2022 CR XR PORTABLE CHEST AP from 12/30/2022 FINDINGS: Single AP portable view. Heart size is upper normal. The mediastinum is not widened. There has been some improvement in the right lung base infiltrate. However, there is still increased markings throughout the lower half the right lung. Probable small right pleural effusion. IMPRESSION: No acute pulmonary findings on this single AP portable view of the chest. Size upper normal. Please note that chest CT scan 06/04/2022 revealed a small pericardial effusion. DATA REPOSITORY: RADIATION DOSE DELIVERED:
[2023-02-19] MEDS: Albuterol/Ipratropium 3 ML UPD VIAL 9 ML UPD (14:46)
[2023-02-19] MEDS: Dexamethasone 10 MG/ML VIAL IVP (14:46)
[2023-02-19 14:55] LABS: Abs Immature Grans 0.03 10^3/uL (0.0-0.06); Absolute Basophil Count 0.05 10^3/uL (0.0-0.2); Absolute Eosinophil Count 0.19 10^3/uL (0.0-0.7); Absolute Lymphocyte Count 1.22 10^3/uL (1.2-3.4); Absolute Monocyte Count 0.72 10^3/uL (0.1-0.8); Absolute Neutrophil Count 5.31 10^3/uL (1.2-6.7); Basophils % 0.7; Eosinophils % 2.5; HCT 54.9 % (40.0-50.0); HGB 16.6 g/dL (13.5-17.5); Immature Grans % 0.4; Lymphocytes % 16.2; MCH 28.5 pg (27.0-33.0); MCHC 30.2 % (32.0-36.0); MCV 94 fL (80-95); Monocytes % 9.6; Neutrophils % 70.6; Platelet Count 271 10^3/uL (130-400); RBC 5.82 10^6/uL (4.36-5.78); RDW 15.1 % (11.8-14.1); RDW-SD 52.4 fL; WBC 7.52 10^3/uL (4.4-10.8)
[2023-02-19 15:04] LABS: ALT 15 U/L (16-63); AST 14 U/L (15-37); Albumin 3.2 g/dL (3.4-5.0); Alkaline Phosphatase 78 U/L (46-116); Anion Gap 0.8 mmol/L (3-11); BUN 10 mg/dL (7-18); Bilirubin, Total 0.6 mg/dL (0.2-1.0); CO2 41.2 mmol/L (21.0-32.0); CREATININE 0.8 mg/dL (0.70-1.30); Calcium 8.8 mg/dL (8.5-10.1); Chloride 102 mmol/L (98-107); Estimated GFR 100.69 (mL/min/1.73m2); Glucose 94 mg/dL (74-106); Potassium 4.4 mmol/L (3.5-5.1); Sodium 144 mmol/L (136-145); Total Protein 6.5 g/dL (6.4-8.2)
--- NOTE | 2023-02-19 15:13 | ED.GENADUL_ITS ---
Discharge Plan Disposition Patient Disposition: Home Condition: Improving Discharge Details Chief Complaint: SOB Clinical Impression: COPD exacerbation Primary Care Provider: MIMI PEREZ ED Provider: Omar Mcclure Home Meds and New Rx's Prescriptions: No Action metformin 750 mg tablet extended release 24 hr 750 mg PO DAILY aripiprazole [Abilify] 5 mg tablet 20 mg PO DAILY Incruse Ellipta 62.5 mcg/actuation blister with device 1 inh inhalation DAILY Hold Instructions: Pt Stopped/Never Started melatonin 3 mg capsule 3 mg PO HS PRN ipratropium-albuterol 0.5 mg-3 mg(2.5 mg base)/3 mL solution for nebulization 3 ml inhalation Q4H PRN (Reason: wheezing) Qty: 540 12RF atorvastatin 20 mg tablet 20 mg PO HS azithromycin 250 mg tablet 250 mg PO DAILY Qty: 60 7RF (DME) blood-glucose meter Misc See Rx Instructions .Route Rx Instructions: As directed (DME) Disposable Brief Jumbo X-Large Misc See Rx Instructions .Route Rx Instructions: As directed (DME) Blood Glucose Test Strip See Rx Instructions .Route Rx Instructions: As directed (DME) lancets [OneTouch UltraSoft Lancets] Misc See Rx Instructions .Route Rx Instructions: As directed (DME) oxygen and supplies 2 liters 0 .Route .MEDSUPPLY nystatin 100,000 unit/gram powder 1 applic topical BID oxybutynin chloride 15 mg tablet extended release 24hr 30 mg PO QHS Qty: 180 3RF budesonide-formoterol [Symbicort] 160-4.5 mcg/actuation HFA aerosol inhaler See Rx Instructions .ROUTE .COMPLEX Rx Instructions: 2 puffs BID prazosin 1 mg capsule 3 mg PO HS lisinopril 20 mg tablet 20 mg PO BID amlodipine 5 mg tablet 5 mg PO DAILY divalproex 500 mg tablet extended release 24 hr 500 mg PO HS cyanocobalamin (vitamin B-12) [Vitamin B-12] 5,000 mcg Tablet, Sublingual 5,000 mcg SUBLINGUAL DAILY cholecalciferol (vitamin D3) [Vitamin D3] 25 mcg (1,000 unit) capsule 1,000 unit PO DAILY aripiprazole 10 mg tablet 20 mg PO DAILY albuterol sulfate 90 mcg/actuation HFA aerosol inhaler 2 inh inhalation Q6H PRN Discharge Instructions Instructions: COPD (Chronic Obstructive Pulmonary Disease) (ED) Additional Instructions: Please use your oxygen and CPAP machine. Please return to the emergency department for any worsening symptoms. Medical Decision Making 62-year-old male history of COPD presents with shortness of breath and eye irritation, has crusted serous drainage from bilateral eyes, initially saturating in the mid 80s improved on 3 to 5 L nasal cannula, moving good air however mild expiratory wheeze bilaterally, alert and interactive tolerating secretions. Consider viral illness exacerbating COPD versus pneumonia lower suspicion for ACS CHF PE or aortic pathology. Likely viral conjunctivitis. Consider COVID versus influenza versus RSV. 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 Despite CO2 slightly uptrending from 81 to 83 this is relatively stable and not far from what appears to be patient's baseline readings from past visits, given normal mentation normal work of breathing clear lungs oxygenating in the 90s on 3 to 4 L nasal cannula patient will be discharged back to care facility. Spoke with care nurse Jayde at patient's care facility who endorses that he does have access to oxygen and CPAP I encouraged compliance with these therapies. Home care instructions and return precautions. HPI General Date/Time Provider Initiated Documentation: 02/19/23 14:16 . HPI Narrative: 62-year-old male history of COPD presents with shortness of breath eye irritation. On baseline home O2 approximately 3 L to 5 L nasal cannula. Related Data Home Medications Medication Instructions Recorded Confirmed aripiprazole 5 mg tablet (Abilify) 20 mg PO DAILY 03/13/21 02/19/23 metformin 750 mg tablet,extended 750 mg PO DAILY 03/13/21 02/19/23 release 24 hr blood sugar diagnostic (Blood 10/23/21 01/20/23 Glucose Test strips) blood-glucose meter 10/23/21 01/20/23 diaper,brief,adult,disposable 10/23/21 01/20/23 (Disposable Brief Jumbo X-Large) lancets (OneTouch UltraSoft 10/23/21 01/20/23 Lancets) nystatin 100,000 unit/gram topical 1 applic topical BID 10/23/21 02/19/23 powder oxygen and supplies 2 liters 10/23/21 01/20/23 umeclidinium 62.5 mcg/actuation 1 inh inhalation DAILY 02/05/22 02/19/23 blister powder for inhalation (Incruse Ellipta) budesonide-formoterol HFA 160 See Rx Instructions .Route .COMPLEX 04/12/22 02/19/23 mcg-4.5 mcg/actuation aerosol inhaler (Symbicort) ipratropium 0.5 mg-albuterol 3 mg 3 ml inhalation Q4H PRN wheezing 05/15/22 02/19/23 (2.5 mg base)/3 mL nebulization #540 mL soln melatonin 3 mg capsule 3 mg PO HS PRN 05/15/22 02/19/23 atorvastatin 20 mg tablet 20 mg PO HS 08/13/22 02/19/23 amlodipine 5 mg tablet 5 mg PO DAILY 12/23/22 02/19/23 cyanocobalamin (vitamin B-12) 5,000 mcg sublingual DAILY 12/23/22 02/19/23 5,000 mcg sublingual tablet (Vitamin B-12) divalproex 500 mg tablet,extended 500 mg PO HS 12/23/22 02/19/23 release 24 hr lisinopril 20 mg tablet 20 mg PO BID 12/23/22 02/19/23 prazosin 1 mg capsule 3 mg PO HS 12/23/22 02/19/23 azithromycin 250 mg tablet 250 mg PO DAILY #60 tabs 01/20/23 02/19/23 oxybutynin chloride 15 mg 30 mg (2 x 15 mg) PO QHS #180 tabs 01/20/23 02/19/23 tablet,extended release 24 hr albuterol sulfate 90 mcg/actuation 2 inh inhalation Q6H PRN 02/19/23 02/19/23 aerosol inhaler aripiprazole 10 mg tablet 20 mg PO DAILY 02/19/23 02/19/23 cholecalciferol (vitamin D3) 25 1,000 unit PO DAILY 02/19/23 02/19/23 mcg (1,000 unit) capsule (Vitamin D3) Previous Rx's Medication Instructions Recorded ipratropium 0.5 mg-albuterol 3 mg 3 ml inhalation Q4H PRN wheezing 05/15/22 (2.5 mg base)/3 mL nebulization #540 mL soln azithromycin 250 mg tablet 250 mg PO DAILY #60 tabs 01/20/23 oxybutynin chloride 15 mg 30 mg (2 x 15 mg) PO QHS #180 tabs 01/20/23 tablet,extended release 24 hr Allergies Allergy/AdvReac Type Severity Reaction Status Date / Time Penicillins Allergy Severe Anaphylaxis Unverified 02/19/23 14:36 dextromethorphan Allergy Mild Skin Rash Unverified 02/19/23 14:36 [From Dimetapp Cold-Congestion] diphenhydramine Allergy Mild Skin Rash Unverified 02/19/23 14:36 [From Dimetapp Cold-Congestion] guaifenesin Allergy Mild Skin Rash Unverified 02/19/23 14:36 [From Dimetapp Cold-Congestion] phenylephrine Allergy Mild Skin Rash Unverified 02/19/23 14:36 [From Dimetapp Cold-Congestion] pseudoephedrine Allergy Mild Skin Rash Unverified 02/19/23 14:36 [From Dimetapp Cold-Congestion] bupropion [From Wellbutrin] AdvReac Intermediate Other (See Unverified 02/19/23 14:36 Comment) General Stated Complaint: SOB SANTA: 3 Review of Systems Narrative: Review of Systems Constitutional: negative Eyes: negative ENT: negative Cardiovascular: negative Respiratory: Shortness of breath Gastrointestinal: negative : negative Musculoskeletal: negative Skin: negative Neurologic: negative Psych: negative PFSH All Active Problems (Updated 02/19/23 @ 17:15 by Omar Mcclure MD) COPD exacerbation (Acute) Acute and chronic respiratory failure (Acute) Acute hypoxemic respiratory failure (Acute) COPD (chronic obstructive pulmonary disease) (Chronic) Hallucinations (Acute) Suicide ideation (Acute) Headache (Acute) Seborrheic dermatitis (Acute) COVID-19 (Acute) Altered mental status (Acute) Septic shock (Acute) Right bundle branch block (Acute) Elevated troponin (Acute) Elevated LFTs (Acute) MICHAEL (acute kidney injury) (Acute) Hyperkalemia (Acute) Lactic acidosis (Acute) COVID (Acute) Respiratory failure with hypoxia and hypercapnia (Acute) Nicotine dependence, cigarettes, uncomplicated (Acute) Respiratory failure with hypoxia (Acute) Hypoxemia (Acute) Sleep apnea (Acute) Depression (Chronic) Tobacco dependence (Acute) Pneumonia (Acute) Supplemental oxygen dependent (Acute) Bipolar 1 disorder (Acute) Obesity (Chronic) Incontinence of urine (Acute) Diabetes (Chronic) DVT prophylaxis (Acute) HTN (hypertension) (Chronic) Obstructive sleep apnea (Chronic) COPD (chronic obstructive pulmonary disease) (Chronic) Suicidal ideations (Acute) Hallucinations (Acute) Hypertension (Chronic) Medical History Palliative care patient Obesity (BMI 30-39.9) Hyperlipidemia Schizophrenia Family History Other Adopted Social History Smoking/Tobacco Use Status: Current every day Tobacco Type: cigarettes Smoking packs per day: 0 Smoking cigarettes per day: 0.0 Years smoked: 30 Smoking pack-years: 0.00 Tobacco: How many years used: 30 Smoking risk assessment performed?: Yes Alcohol Intake: former Drug use: Never Substance use type: does not use Caregiver/Support person: No Household members: none Housing: assisted living facility Number of Children: 0 Communication Needs: Hard of Hearing and Corrective Lenses Education Level: high school Do you need help understanding health information?: Always current occupation: disabled due to mental illness Pets and animals: No Current gender identity: male What is your relationship status?: never How often do you talk on the phone with friends or family?: never How often do you get together with friends or relatives?: never Panel score (0-1 are the most socially isolated patients): 0 What type of physical activity do you participate in: none and sedentary lifestyle Frequency: does not exercise Special mannie needs: No Seatbelt use: always Do you feel safe at home: No (pt states feeling unsafe but cannot explain why.) Do you feel safe in your relationship?: Yes Exam Narrative Exam Narrative: Physical Examination General: alert, awake, cooperative, resting comfortably, no acute distress HEENT: normocephalic, atraumatic; PERRL, EOM intact, crusted serous drainage bilateral eyes; no nasal discharge; moist mucous membranes, oral and pharyngeal mucosa normal, tolerating secretions Neck: supple, trachea midline; full ROM Chest: normal to inspection Respiratory: Mild expiratory wheeze bilaterally, speaking full sentences Cardiac: regular rate, regular rhythm, S1S2 intact, no murmurs rubs or gallops GI: abdomen soft, non-tender, non-distended; no palpable mass or hepatosplenomegaly Skin: no lesions, rashes or trauma appreciated Neuro: AAOx3, normal speech, moving all extremities Psych: Appropriate mood and affect Course Vital Signs Vital signs: Vital Signs Pulse 69 02/19/23 14:03 Respiratory Rate 22 02/19/23 14:03 Blood Pressure 136/82 02/19/23 14:03 Pulse Oximetry 85 L 02/19/23 14:03 Pulse 58 L 02/19/23 14:31 Pulse 58 L 02/19/23 14:31 Respiratory Rate 12 02/19/23 14:31 Respiratory Effort Normal 02/19/23 14:09 Blood Pressure 135/84 02/19/23 14:31 Blood Pressure Mean 101 02/19/23 14:31 Blood Pressure Position Sitting 02/19/23 14:03 Pulse Oximetry 92 02/19/23 14:31 Oxygen Delivery Method Nasal Cannula 02/19/23 14:03 Oxygen Flow Rate 5 02/19/23 14:03 Lab/Test Results Lab/Test Results: Laboratory Tests Range/Units 02/19/23 14:40 WBC (4.4-10.8) 10^3/uL 7.52 RBC (4.36-5.78) 10^6/uL 5.82 H Hgb (13.5-17.5) g/dL 16.6 Hct (40.0-50.0) % 54.9 H MCV (80-95) fL 94 MCH (27.0-33.0) pg 28.5 MCHC (32.0-36.0) % 30.2 L RDW (11.8-14.1) % 15.1 H Plt Count (130-400) 10^3/uL 271 MPV (8.0-11.0) fL 9.0 Immature Gran % 0.4 Neutrophils % 70.6 Lymphocytes % 16.2 Monocytes % 9.6 Eosinophils % 2.5 Basophils % 0.7 Nucleated RBC % (0.0-0.3) % 0.0 Absolute Neutrophils (1.2-6.7) 10^3/uL 5.31 Absolute Lymphocytes (1.2-3.4) 10^3/uL 1.22 Absolute Monocytes (0.1-0.8) 10^3/uL 0.72 Absolute Eosinophils (0.0-0.7) 10^3/uL 0.19 Absolute Basophils (0.0-0.2) 10^3/uL 0.05 Sodium (136-145) mmol/L 144 Potassium (3.5-5.1) mmol/L 4.4 Chloride (98-107) mmol/L 102 Carbon Dioxide (21.0-32.0) mmol/L 41.2 H Anion Gap (3-11) mmol/L 0.8 L BUN (7-18) mg/dL 10 Creatinine (0.70-1.30) mg/dL 0.8 Est GFR (CKD-EPI 2020) (mL/min/1.73m2) 100.69 Glucose (74-106) mg/dL 94 Calcium (8.5-10.1) mg/dL 8.8 Total Bilirubin (0.2-1.0) mg/dL 0.6 AST (15-37) U/L 14 L ALT (16-63) U/L 15 L Alkaline Phosphatase (46-116) U/L 78 Total Protein (6.4-8.2) g/dL 6.5 Albumin (3.4-5.0) g/dL 3.2 L
[2023-02-19 15:28] LABS: COVID-19 PCR Negative (Negative); Influenza A PCR Negative (Negative); Influenza B PCR Negative (Negative); RSV PCR Negative (Negative)
[2023-02-19 15:31] LABS: Source Nasopharynx
[2023-02-19 15:33] LABS: BE (Venous) 16 mmol/L (-2-3); HCO3 (Venous) 42 mmol/L (23-28); O2 Sat (Venous) 59 %; TCO2 (Venous) 38 mmol/L (24-29); pH (Venous) 7.32 (7.31-7.41); pO2 (Venous) 33 mmHg
[2023-02-19 15:37] LABS: pCO2 (Venous) 81 mmHg (41-51)
[2023-02-19 17:05] LABS: BE (Venous) 16 mmol/L (-2-3); HCO3 (Venous) 43 mmol/L (23-28); O2 Sat (Venous) 53 %; TCO2 (Venous) 38 mmol/L (24-29); pH (Venous) 7.32 (7.31-7.41); pO2 (Venous) 31 mmHg
[2023-02-19 17:07] LABS: pCO2 (Venous) 83 mmHg (41-51)
[2023-02-19] MEDS: CEFEPIME 1 GM in Normal Saline 50 ML IVPB (18:23)
--- NOTE | 2023-02-19 18:39 | ED.PROG_ITS ---
Date of service: 02/19/23 Time of Service: 18:55 Medical Decision Making Patient was up for discharge. However, once he came off BiPAP he quickly desaturated to the low 80s on his 4 L nasal cannula. I reviewed his visit, labs, x-ray. His white count is normal. His venous gas has a normal pH but a PCO2 of 83 while on the BiPAP. His venous bicarb is 43 suggesting chronic CO2 retention to some degree. His nasal swab was negative. Chest x-ray shows a right lower lobe infiltrate. He is chronically on azithromycin at 250 a day. He required going back on BiPAP with a FiO2 of 40%. Given his frequent hospitalizations, chronic azithromycin, COPD I have ordered him for cefepime and vancomycin. He had already received Decadron earlier in the visit. He will be admitted to the hospitalist service, I have discussed patient with and his discharge is canceled. Medical Records Medical records reviewed: Yes I reviewed the patient's medical records. Lab Data Lab results reviewed: Yes I reviewed the patient's lab results. Discharge Plan Disposition Patient Disposition: Admit to [facility] Condition: Fair Discharge Details Clinical Impression: Respiratory failure with hypoxia, Pneumonia Primary Care Provider: MIMI PEREZ ED Provider: Anam Chris [facility] and New Rx's Prescriptions: No Action metformin 750 mg tablet extended release 24 hr 750 mg PO DAILY aripiprazole [Abilify] 5 mg tablet 20 mg PO DAILY Incruse Ellipta 62.5 mcg/actuation blister with device 1 inh inhalation DAILY Hold Instructions: Pt Stopped/Never Started melatonin 3 mg capsule 3 mg PO HS PRN ipratropium-albuterol 0.5 mg-3 mg(2.5 mg base)/3 mL solution for nebulization 3 ml inhalation Q4H PRN (Reason: wheezing) Qty: 540 12RF atorvastatin 20 mg tablet 20 mg PO HS azithromycin 250 mg tablet 250 mg PO DAILY Qty: 60 7RF (DME) blood-glucose meter Misc See Rx Instructions .Route Rx Instructions: As directed (DME) Disposable Brief Jumbo X-Large Misc See Rx Instructions .Route Rx Instructions: As directed (DME) Blood Glucose Test Strip See Rx Instructions .Route Rx Instructions: As directed (DME) lancets [OneTouch UltraSoft Lancets] Misc See Rx Instructions .Route Rx Instructions: As directed (DME) oxygen and supplies 2 liters 0 .Route .MEDSUPPLY nystatin 100,000 unit/gram powder 1 applic topical BID oxybutynin chloride 15 mg tablet extended release 24hr 30 mg PO QHS Qty: 180 3RF budesonide-formoterol [Symbicort] 160-4.5 mcg/actuation HFA aerosol inhaler See Rx Instructions .ROUTE .COMPLEX Rx Instructions: 2 puffs BID prazosin 1 mg capsule 3 mg PO HS lisinopril 20 mg tablet 20 mg PO BID amlodipine 5 mg tablet 5 mg PO DAILY divalproex 500 mg tablet extended release 24 hr 500 mg PO HS cyanocobalamin (vitamin B-12) [Vitamin B-12] 5,000 mcg Tablet, Sublingual 5,000 mcg SUBLINGUAL DAILY cholecalciferol (vitamin D3) [Vitamin D3] 25 mcg (1,000 unit) capsule 1,000 unit PO DAILY aripiprazole 10 mg tablet 20 mg PO DAILY albuterol sulfate 90 mcg/actuation HFA aerosol inhaler 2 inh inhalation Q6H PRN
[2023-02-19] MEDS: VANCOMYCIN 1,500 MG in Normal Saline 250 ML 166.6666 MG IVPB (19:13)
--- NOTE | 2023-02-19 19:17 | W.PM.HP.N ---
Date of service: 02/19/23 Time of Service: 19:37 Assessment and Plan Assessment and plan (1) Respiratory insufficiency: Status: Acute Assessment and plan: Respiratory insufficiency, probably best described as COPD exacerbation. Unclear what role infection is playing, the CXR indicates improvement in his pneumonia and the eye discharge suggests this may be more a viral syndrome. White count is normal, afebrile; no Procal at this time. The VBG and chemistries indicate a chronic, compensated (partially) respiratory acidosis, and he is probably not far from baseline. Will plan on steroids, updrafts and will continue antibiotics, though I think monotherapy IV coverage with Cefepime will be fine (will continue his usual Zithro prophylaxis). Will continue BiPAP overnight and reassess VBG in AM. Per prior visits remains Full Code. History of Present Illness History of Present Illness Chief Complaint: SOB Narrative: 62 male with COPD on home O2. Here 01/06 with pneumonia. Comes in tonight with unspecified period of SOB and crusting of his eyes. [place] to have viral syndrome, treated with steroids and updrafts. VBG show pCO2 81, with pH7.32. Patient started on BiPAP, then trialed 4 L NC with drop in sats to 80s. CXR shows persitent but improved RLL infiltrate. Given Cefepime and Vanco. I was asked to evaluate for admission. At present patient states he continue to feel somewhat SOB but is generally comfortable on the BiPAP, satting in the low-mid 90s during visit. Review of Systems Narrative: per HPI PFSH All Active Problems (Updated 02/19/23 @ 19:28 by Sukhdeep Collins MD) Respiratory insufficiency (Acute) Acute and chronic respiratory failure (Acute) Acute hypoxemic respiratory failure (Acute) COPD (chronic obstructive pulmonary disease) (Chronic) Hallucinations (Acute) Suicide ideation (Acute) Headache (Acute) Seborrheic dermatitis (Acute) COVID-19 (Acute) Altered mental status (Acute) Septic shock (Acute) Right bundle branch block (Acute) Elevated troponin (Acute) Elevated LFTs (Acute) MICHAEL (acute kidney injury) (Acute) Hyperkalemia (Acute) Lactic acidosis (Acute) COVID (Acute) Respiratory failure with hypoxia and hypercapnia (Acute) Nicotine dependence, cigarettes, uncomplicated (Acute) Respiratory failure with hypoxia (Acute) Hypoxemia (Acute) Sleep apnea (Acute) Depression (Chronic) Tobacco dependence (Acute) Pneumonia (Acute) Supplemental oxygen dependent (Acute) Bipolar 1 disorder (Acute) Obesity (Chronic) Incontinence of urine (Acute) Diabetes (Chronic) DVT prophylaxis (Acute) HTN (hypertension) (Chronic) Obstructive sleep apnea (Chronic) COPD (chronic obstructive pulmonary disease) (Chronic) Suicidal ideations (Acute) Hallucinations (Acute) Hypertension (Chronic) Medical History Palliative care patient Obesity (BMI 30-39.9) Hyperlipidemia Schizophrenia Family History Other Adopted Social History Smoking/Tobacco Use Status: Current every day Tobacco Type: cigarettes Smoking packs per day: 0 Smoking cigarettes per day: 0.0 Years smoked: 30 Smoking pack-years: 0.00 Tobacco: How many years used: 30 Smoking risk assessment performed?: Yes Alcohol Intake: former Drug use: Never Substance use type: does not use Caregiver/Support person: No Household members: none Housing: assisted living facility Number of Children: 0 Communication Needs: Hard of Hearing and Corrective Lenses Education Level: high school Do you need help understanding health information?: Always current occupation: disabled due to mental illness Pets and animals: No Current gender identity: male What is your relationship status?: never How often do you talk on the phone with friends or family?: never How often do you get together with friends or relatives?: never Panel score (0-1 are the most socially isolated patients): 0 What type of physical activity do you participate in: none and sedentary lifestyle Frequency: does not exercise Special mannie needs: No Seatbelt use: always Do you feel safe at home: No (pt states feeling unsafe but cannot explain why.) Do you feel safe in your relationship?: Yes Meds Allergies and Home Medications Allergies Allergy/AdvReac Type Severity Reaction Status Date / Time Penicillins Allergy Severe Anaphylaxis Unverified 02/19/23 14:36 dextromethorphan Allergy Mild Skin Rash Unverified 02/19/23 14:36 [From Dimetapp Cold-Congestion] diphenhydramine Allergy Mild Skin Rash Unverified 02/19/23 14:36 [From Dimetapp Cold-Congestion] guaifenesin Allergy Mild Skin Rash Unverified 02/19/23 14:36 [From Dimetapp Cold-Congestion] phenylephrine Allergy Mild Skin Rash Unverified 02/19/23 14:36 [From Dimetapp Cold-Congestion] pseudoephedrine Allergy Mild Skin Rash Unverified 02/19/23 14:36 [From Dimetapp Cold-Congestion] bupropion [From Wellbutrin] AdvReac Intermediate Other (See Unverified 02/19/23 14:36 Comment) Home Medications Medication Instructions Recorded Confirmed Type aripiprazole 5 mg tablet (Abilify) 20 mg PO DAILY 03/13/21 02/19/23 History metformin 750 mg tablet,extended 750 mg PO DAILY 03/13/21 02/19/23 History release 24 hr blood sugar diagnostic (Blood 10/23/21 01/20/23 History Glucose Test strips) blood-glucose meter 10/23/21 01/20/23 History diaper,brief,adult,disposable 10/23/21 01/20/23 History (Disposable Brief Jumbo X-Large) lancets (OneTouch UltraSoft 10/23/21 01/20/23 History Lancets) nystatin 100,000 unit/gram topical 1 applic topical BID 10/23/21 02/19/23 History powder oxygen and supplies 2 liters 10/23/21 01/20/23 History umeclidinium 62.5 mcg/actuation 1 inh inhalation DAILY 02/05/22 02/19/23 History blister powder for inhalation (Incruse Ellipta) budesonide-formoterol HFA 160 See Rx Instructions .Route .COMPLEX 04/12/22 02/19/23 History mcg-4.5 mcg/actuation aerosol inhaler (Symbicort) ipratropium 0.5 mg-albuterol 3 mg 3 ml inhalation Q4H PRN wheezing 05/15/22 02/19/23 Rx (2.5 mg base)/3 mL nebulization #540 mL soln melatonin 3 mg capsule 3 mg PO HS PRN 05/15/22 02/19/23 History atorvastatin 20 mg tablet 20 mg PO HS 08/13/22 02/19/23 History amlodipine 5 mg tablet 5 mg PO DAILY 12/23/22 02/19/23 History cyanocobalamin (vitamin B-12) 5,000 mcg sublingual DAILY 12/23/22 02/19/23 History 5,000 mcg sublingual tablet (Vitamin B-12) divalproex 500 mg tablet,extended 500 mg PO HS 12/23/22 02/19/23 History release 24 hr lisinopril 20 mg tablet 20 mg PO BID 12/23/22 02/19/23 History prazosin 1 mg capsule 3 mg PO HS 12/23/22 02/19/23 History azithromycin 250 mg tablet 250 mg PO DAILY #60 tabs 01/20/23 02/19/23 Rx oxybutynin chloride 15 mg 30 mg (2 x 15 mg) PO QHS #180 tabs 01/20/23 02/19/23 Rx tablet,extended release 24 hr albuterol sulfate 90 mcg/actuation 2 inh inhalation Q6H PRN 02/19/23 02/19/23 History aerosol inhaler aripiprazole 10 mg tablet 20 mg PO DAILY 02/19/23 02/19/23 History cholecalciferol (vitamin D3) 25 1,000 unit PO DAILY 02/19/23 02/19/23 History mcg (1,000 unit) capsule (Vitamin D3) Exam Narrative Exam Narrative: 135/84, 61, 36.8, 18 (during visit), 94% (during visit). HEENT atraumatic, yellow crust lower lids; neck supple; lungs diminished; heart distant, RRR; abdomen soft and NT; extremities trace pedal edema, diminished pedal and RUE pulses; neuro Ox3, moves all 4s Results Labs 02/19/23 14:40 02/19/23 14:40 Labs: Laboratory Results - last 24 hr 02/19/23 02/19/23 02/19/23 13:38 14:40 15:30 WBC 7.52 RBC 5.82 H Hgb 16.6 Hct 54.9 H MCV 94 MCH 28.5 MCHC 30.2 L RDW 15.1 H Plt Count 271 MPV 9.0 Immature Gran % 0.4 Neutrophils % 70.6 Lymphocytes % 16.2 Monocytes % 9.6 Eosinophils % 2.5 Basophils % 0.7 Nucleated RBC % 0.0 Absolute Neutrophils 5.31 Absolute Lymphocytes 1.22 Absolute Monocytes 0.72 Absolute Eosinophils 0.19 Absolute Basophils 0.05 VBG pH 7.32 VBG pCO2 81 H* VBG pO2 33 VBG HCO3 42 H VBG Total CO2 38 H VBG O2 Saturation 59 VBG Base Excess 16 H Sodium 144 Potassium 4.4 Chloride 102 Carbon Dioxide 41.2 H Anion Gap 0.8 L BUN 10 Creatinine 0.8 Est GFR (CKD-EPI 2020) 100.69 Glucose 94 Calcium 8.8 Total Bilirubin 0.6 AST 14 L ALT 15 L Alkaline Phosphatase 78 Total Protein 6.5 Albumin 3.2 L COVID-19 Source Nasopharynx SARS-CoV-2 (PCR) Negative Influenza Type A (PCR) Negative Influenza Type B (PCR) Negative RSV (PCR) Negative 02/19/23 16:58 WBC RBC Hgb Hct MCV MCH MCHC RDW Plt Count MPV Immature Gran % Neutrophils % Lymphocytes % Monocytes % Eosinophils % Basophils % Nucleated RBC % Absolute Neutrophils Absolute Lymphocytes Absolute Monocytes Absolute Eosinophils Absolute Basophils VBG pH 7.32 VBG pCO2 83 H* VBG pO2 31 VBG HCO3 43 H VBG Total CO2 38 H VBG O2 Saturation 53 VBG Base Excess 16 H Sodium Potassium Chloride Carbon Dioxide Anion Gap BUN Creatinine Est GFR (CKD-EPI 2020) Glucose Calcium Total Bilirubin AST ALT Alkaline Phosphatase Total Protein Albumin COVID-19 Source SARS-CoV-2 (PCR) Influenza Type A (PCR) Influenza Type B (PCR) RSV (PCR) Last Vital Signs Pulse 61 02/19/23 17:44 Resp 11 L 02/19/23 17:44 BP 135/84 02/19/23 14:31 Pulse Ox 89 L 02/19/23 17:44 Time Spent Time spent with Patient: 55-74 minutes Time was spent: preparing to see the patient(eg.review tests), obtaining and/or reviewing separately otained hiistory, ordering medications,tests, procedures, referring, communicating with other health career professional and indepentently interpreting results
--- NOTE | 2023-02-19 20:31 | W.PC.ACHO ---
Registration Status: REG ER Primary Language: Preferred Language: ED Information & Data Chief Complaint SOB 02/19/23 15:16 Triage Note SOB and eye irritation for 02/19/23 14:03 past few weeks. Also, c/o abd pain for past few weeks. Endorses increased anxiety and stress with inability to sleep. Denies CP. 5L NC for COPD. Medical / Surgical History (Last Reviewed 02/19/23 @ 19:24 by Sukhdeep Collins MD) Palliative care patient Obesity (BMI 30-39.9) Hyperlipidemia Schizophrenia Most Recent Vital Signs Pulse 57 L 02/19/23 20:04 Pulse 57 L 02/19/23 20:04 Respiratory Rate 20 02/19/23 20:13 Respiratory Effort Normal 02/19/23 20:13 Respiratory Depth Normal 02/19/23 20:13 Respiratory Pattern Normal 02/19/23 20:13 Blood Pressure 132/87 02/19/23 20:04 Blood Pressure Mean 100 02/19/23 20:04 Blood Pressure Position Sitting 02/19/23 14:03 Pulse Oximetry 92 02/19/23 20:04 Oxygen Delivery Method Nasal Cannula 02/19/23 14:03 Oxygen Flow Rate 5 02/19/23 14:03 Fraction of Inspired Oxygen (FIO2) 40 02/19/23 17:44 Allergies Penicillins Allergy (Severe, Unverified 02/19/23 14:36) Anaphylaxis Pt reports dextromethorphan [From Dimetapp Cold-Congestion] Allergy (Mild, Unverified 02/19/23 14:36) Skin Rash diphenhydramine [From Dimetapp Cold-Congestion] Allergy (Mild, Unverified 02/19/23 14:36) Skin Rash guaifenesin [From Dimetapp Cold-Congestion] Allergy (Mild, Unverified 02/19/23 14:36) Skin Rash phenylephrine [From Dimetapp Cold-Congestion] Allergy (Mild, Unverified 02/19/23 14:36) Skin Rash pseudoephedrine [From Dimetapp Cold-Congestion] Allergy (Mild, Unverified 02/19/23 14:36) Skin Rash bupropion [From Wellbutrin] Adverse Reaction (Intermediate, Unverified 02/19/23 14:36) Other (See Comment) Patient reports abnormal behavior IV IV Catheter Type [Left Saline Lock Antecubital] IV Catheter Gauge [Left 18 Antecubital] Diet Orders Category Date Time Status Regular/Normal [DIET] Nutrition 02/20/23 Breakfast Ordered Diagnostics 02/19/23 02/19/23 02/19/23 Range/Units 16:58 15:30 14:40 WBC 7.52 (4.4-10.8) 10^3/uL RBC 5.82 H (4.36-5.78) 10^6/uL Hgb 16.6 (13.5-17.5) g/dL Hct 54.9 H (40.0-50.0) % MCV 94 (80-95) fL MCH 28.5 (27.0-33.0) pg MCHC 30.2 L (32.0-36.0) % RDW 15.1 H (11.8-14.1) % Plt Count 271 (130-400) 10^3/uL MPV 9.0 (8.0-11.0) fL Immature Gran % 0.4 Neutrophils % 70.6 Lymphocytes % 16.2 Monocytes % 9.6 Eosinophils % 2.5 Basophils % 0.7 Nucleated RBC % 0.0 (0.0-0.3) % Absolute Neutrophils 5.31 (1.2-6.7) 10^3/uL Absolute Lymphocytes 1.22 (1.2-3.4) 10^3/uL Absolute Monocytes 0.72 (0.1-0.8) 10^3/uL Absolute Eosinophils 0.19 (0.0-0.7) 10^3/uL Absolute Basophils 0.05 (0.0-0.2) 10^3/uL VBG pH 7.32 7.32 (7.31-7.41) VBG pCO2 83 H* 81 H* (41-51) mmHg VBG pO2 31 33 mmHg VBG HCO3 43 H 42 H (23-28) mmol/L VBG Total CO2 38 H 38 H (24-29) mmol/L VBG O2 Saturation 53 59 % VBG Base Excess 16 H 16 H (-2-3) mmol/L Sodium 144 (136-145) mmol/L Potassium 4.4 (3.5-5.1) mmol/L Chloride 102 (98-107) mmol/L Carbon Dioxide 41.2 H (21.0-32.0) mmol/L Anion Gap 0.8 L (3-11) mmol/L BUN 10 (7-18) mg/dL Creatinine 0.8 (0.70-1.30) mg/dL Est GFR (CKD-EPI 2020) 100.69 (mL/min/1.73m2) Glucose 94 (74-106) mg/dL Calcium 8.8 (8.5-10.1) mg/dL Total Bilirubin 0.6 (0.2-1.0) mg/dL AST 14 L (15-37) U/L ALT 15 L (16-63) U/L Alkaline Phosphatase 78 (46-116) U/L Total Protein 6.5 (6.4-8.2) g/dL Albumin 3.2 L (3.4-5.0) g/dL Procalcitonin Pending COVID-19 Source SARS-CoV-2 (PCR) (Negative) Influenza Type A (PCR) (Negative) Influenza Type B (PCR) (Negative) RSV (PCR) (Negative) Add-On Test Request Pending 02/19/23 Range/Units 13:38 WBC (4.4-10.8) 10^3/uL RBC (4.36-5.78) 10^6/uL Hgb (13.5-17.5) g/dL Hct (40.0-50.0) % MCV (80-95) fL MCH (27.0-33.0) pg MCHC (32.0-36.0) % RDW (11.8-14.1) % Plt Count (130-400) 10^3/uL MPV (8.0-11.0) fL Immature Gran % Neutrophils % Lymphocytes % Monocytes % Eosinophils % Basophils % Nucleated RBC % (0.0-0.3) % Absolute Neutrophils (1.2-6.7) 10^3/uL Absolute Lymphocytes (1.2-3.4) 10^3/uL Absolute Monocytes (0.1-0.8) 10^3/uL Absolute Eosinophils (0.0-0.7) 10^3/uL Absolute Basophils (0.0-0.2) 10^3/uL VBG pH (7.31-7.41) VBG pCO2 (41-51) mmHg VBG pO2 mmHg VBG HCO3 (23-28) mmol/L VBG Total CO2 (24-29) mmol/L VBG O2 Saturation % VBG Base Excess (-2-3) mmol/L Sodium (136-145) mmol/L Potassium (3.5-5.1) mmol/L Chloride (98-107) mmol/L Carbon Dioxide (21.0-32.0) mmol/L Anion Gap (3-11) mmol/L BUN (7-18) mg/dL Creatinine (0.70-1.30) mg/dL Est GFR (CKD-EPI 2020) (mL/min/1.73m2) Glucose (74-106) mg/dL Calcium (8.5-10.1) mg/dL Total Bilirubin (0.2-1.0) mg/dL AST (15-37) U/L ALT (16-63) U/L Alkaline Phosphatase (46-116) U/L Total Protein (6.4-8.2) g/dL Albumin (3.4-5.0) g/dL Procalcitonin COVID-19 Source Nasopharynx SARS-CoV-2 (PCR) Negative (Negative) Influenza Type A (PCR) Negative (Negative) Influenza Type B (PCR) Negative (Negative) RSV (PCR) Negative (Negative) Add-On Test Request Intake and Output - 24 Hour Total 02/19/23 13:59 thru 02/19/23 18:53 Intake Total 50 Balance 50 Weight 99.337 kg Intake: IV 50 Falls Risk Assessment History of Falls No History 02/19/23 14:09 Contributing Factors Confusion 02/19/23 14:09 Ambulatory Aids Independent 02/19/23 14:09 Tubes/Lines None 02/19/23 14:09 Gait Evaluation No gait disturbance 02/19/23 14:09 Cognition No cognitive impairment 02/19/23 14:09 Fall Total Score 3 02/19/23 14:09 Level of Risk Standard/Low Risk 02/19/23 14:09 Problems (Last Reviewed 02/19/23 @ 19:24 by Sukhdeep Collins MD) Respiratory insufficiency (Acute) Respiratory failure with hypoxia (Acute) Pneumonia (Acute) v v v v v v v v v Sending and/or Receiving Nurses: Please use comment section below to note any information pertinent to the patient hand-off not included above. Information / Comments: Report received from:Maggi MARTINEZ all ?'s answered
[2023-02-19 20:48] LABS: Procalcitonin < 0.1 ng/mL
[2023-02-19 20:54] LABS: Lab Add On Test DONE
[2023-02-19] MEDS: Albuterol/Ipratropium 3 ML UPD VIAL UPD (21:55)
--- NOTE | 2023-02-19 22:03 | RESPIRATORY ---
Pt. advised that he uses 3L/min O2 at home. DME is [facility]. Currently not using any CPAP machine at home, pt. states waiting to get one.
[2023-02-19] MEDS: Prazosin 1 MG CAP 3 MG PO (23:04)
[2023-02-19] MEDS: Lisinopril 20 MG TAB PO (23:04)
[2023-02-19] MEDS: Normal Saline Flush 10 ML SYR IVP (23:05)
[2023-02-19] MEDS: methylPREDNISolone SUCC 40 MG VIAL IVP (23:05)
[2023-02-19] MEDS: Atorvastatin 20 MG TAB PO (23:05)
[2023-02-19] MEDS: Divalproex Sodium 500 MG TAB.ER.24H PO (23:05)
[2023-02-20] VITALS (53 sets, daily range): BP systolic 88–125; BP diastolic 54–77; PULSE 57–112; RESP 2–21; TEMP 36–37; O2SAT 88–97
[2023-02-20] MEDS: Albuterol/Ipratropium 3 ML UPD VIAL UPD ×4 (01:21→20:37)
[2023-02-20] MEDS: CEFEPIME 1 GM in Normal Saline 50 ML IVPB ×2 (03:05→11:20)
[2023-02-20] MEDS: Normal Saline Flush 10 ML SYR IVP ×4 (03:09→21:46)
[2023-02-20] MEDS: methylPREDNISolone SUCC 40 MG VIAL IVP (05:43)
[2023-02-20 05:53] LABS: BE (Venous) 10 mmol/L (-2-3); HCO3 (Venous) 33 mmol/L (23-28); pCO2 (Venous) 41 mmHg (41-51); pH (Venous) 7.52 (7.31-7.41); pO2 (Venous) 157 mmHg
[2023-02-20 07:04] LABS: O2 Sat (Venous) > 99 %
[2023-02-20 07:38] LABS: BE (Venous) 11 mmol/L (-2-3); HCO3 (Venous) 36 mmol/L (23-28); O2 Sat (Venous) 89 %; TCO2 (Venous) 31 mmol/L (24-29); pCO2 (Venous) 58 mmHg (41-51); pH (Venous) 7.39 (7.31-7.41); pO2 (Venous) 55 mmHg
[2023-02-20 07:53] LABS: Anion Gap 3.4 mmol/L (3-11); BUN 17 mg/dL (7-18); CO2 36.6 mmol/L (21.0-32.0); CREATININE 0.8 mg/dL (0.70-1.30); Calcium 8.6 mg/dL (8.5-10.1); Chloride 100 mmol/L (98-107); Estimated GFR 100.69 (mL/min/1.73m2); Glucose 230 mg/dL (74-106); Magnesium 1.7 mg/dL (1.8-2.4); Potassium 4.3 mmol/L (3.5-5.1); Sodium 140 mmol/L (136-145)
[2023-02-20] MEDS: Budesonide/Formoterol 160/4.5 6 GM 60 PUFF INH IH ×2 (07:55→20:40)
[2023-02-20] MEDS: Azithromycin 250 MG TAB PO (08:30)
[2023-02-20] MEDS: Pantoprazole 40 MG TABCR PO (08:30)
[2023-02-20] MEDS: predniSONE 20 MG TAB 40 MG PO (08:30)
[2023-02-20] MEDS: ARIPiprazole 5 MG TAB 20 MG PO (08:30)
[2023-02-20] MEDS: amLODIPine 5 MG TAB PO (08:31)
[2023-02-20] MEDS: Cholecalciferol (Vitamin D3) 1,000 UNIT TAB 1000 UNITS PO (08:31)
[2023-02-20] MEDS: Lisinopril 20 MG TAB PO ×2 (08:31→21:46)
[2023-02-20 08:57] LABS: Abs Immature Grans 0.01 10^3/uL (0.0-0.06); Absolute Eosinophil Count 0.01 10^3/uL (0.0-0.7); Absolute Monocyte Count 0.06 10^3/uL (0.1-0.8); Absolute Neutrophil Count 2.42 10^3/uL (1.2-6.7); Eosinophils % 0.3; HCT 52.5 % (40.0-50.0); HGB 16.3 g/dL (13.5-17.5); Immature Grans % 0.3; Lymphocytes % 13.8; MCH 28.4 pg (27.0-33.0); MCV 92 fL (80-95); MPV 9.5 fL (8.0-11.0); Monocytes % 2.1; Neutrophils % 83.5; Platelet Count 282 10^3/uL (130-400); RBC 5.74 10^6/uL (4.36-5.78); RDW 14.6 % (11.8-14.1); RDW-SD 48.9 fL
--- NOTE | 2023-02-20 10:33 | PDOC.CMIN ---
Date of service: 02/20/23 Time of Service: 10:33 Care Management Initial Assmt Initial Assessment REASON FOR HOSPITALIZATION:: COPD PREVIOUS FUNCTIONAL STATUS/SOCIAL/FAMILY SUPPORTS:: Nathan lives at [facility] in [place], [place]. 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 CURRENT FUNCTIONAL STATUS:: Nathan was sitting up in his chair when CM met with him. He stated that he is doing ok today. CM discussed his discharge plan, which will be to return to [facility], where he resides, and he is agreeable to this plan. He stated that things are going well at [facility]. Per report, RT is looking into his Bipap machine, which he reports has missing pieces. CM will continue to follow. ADVANCE DIRECTIVES:: On file. Delmy Lewis listed as agent. Has patient been provided with info about the portal/API?: Yes Did the patient sign up for the portal?: No CODE STATUS:: Full Code INSURANCE COVERAGE / FINANCIAL ISSUES:: MCR. MARGARITA. CURRENT HOME/COMMUNITY SERVICES/EQUIPMENT:: [employer]. Lives at [facility]; assisted living. PRIMARY CARE PHYSICIAN:: Renée Flores POTENTIAL DISCHARGE NEEDS:: Coordinated return to [facility]. PATIENT/FAMILY EDUCATION NEEDS:: Review discharge instructions and limitations, discussion of self care needs inlcuding ask me three. ANTICIPATED BARRIERS TO DISCHARGE:: None. TRANSPORTATION:: Via private vehicle by staff at [facility] vs [facility]. PLAN:: Anticipate Nathan will return to [facility] once he is medically cleared. He will transport via private vehicle. He will follow up with his PCP and discharge plan of care. CM will continue to follow. [facility] All Active Problems (Updated 02/20/23 @ 14:05 by Jordyn Whiting MD) Discharge planning issues (Acute) Tobacco abuse (Chronic) Hypomagnesemia (Acute) Acute on chronic respiratory failure with hypoxia and hypercapnia (Acute) Respiratory insufficiency (Acute) Acute and chronic respiratory failure (Acute) Acute hypoxemic respiratory failure (Acute) COPD (chronic obstructive pulmonary disease) (Chronic) Hallucinations (Acute) Suicide ideation (Acute) Headache (Acute) Seborrheic dermatitis (Acute) COVID-19 (Acute) Altered mental status (Acute) Septic shock (Acute) Right bundle branch block (Acute) Elevated troponin (Acute) Elevated LFTs (Acute) MICHAEL (acute kidney injury) (Acute) Hyperkalemia (Acute) Lactic acidosis (Acute) COVID (Acute) Respiratory failure with hypoxia and hypercapnia (Acute) Nicotine dependence, cigarettes, uncomplicated (Acute) Respiratory failure with hypoxia (Acute) Hypoxemia (Acute) Sleep apnea (Acute) Depression (Chronic) Tobacco dependence (Acute) Pneumonia (Acute) Supplemental oxygen dependent (Acute) Bipolar 1 disorder (Chronic) Obesity (Chronic) Incontinence of urine (Acute) Diabetes (Chronic) DVT prophylaxis (Acute) HTN (hypertension) (Chronic) Obstructive sleep apnea (Chronic) COPD (chronic obstructive pulmonary disease) (Chronic) Suicidal ideations (Acute) Hallucinations (Acute) Hypertension (Chronic) Medical History Palliative care patient Obesity (BMI 30-39.9) Hyperlipidemia Schizophrenia Family History Other Adopted Social History Smoking/Tobacco Use Status: Current every day Tobacco Type: cigarettes Smoking packs per day: 0 Smoking cigarettes per day: 0.0 Years smoked: 30 Smoking pack-years: 0.00 Tobacco: How many years used: 30 Smoking risk assessment performed?: Yes Alcohol Intake: former Drug use: Never Substance use type: does not use Caregiver/Support person: No Household members: none Housing: assisted living facility Number of Children: 0 Communication Needs: Hard of Hearing and Corrective Lenses Education Level: high school Do you need help understanding health information?: Always current occupation: disabled due to mental illness Pets and animals: No Current gender identity: male What is your relationship status?: never How often do you talk on the phone with friends or family?: never How often do you get together with friends or relatives?: never Panel score (0-1 are the most socially isolated patients): 0 What type of physical activity do you participate in: none and sedentary lifestyle Frequency: does not exercise Special mannie needs: No Seatbelt use: always Do you feel safe at home: No (pt states feeling unsafe but cannot explain why.) Do you feel safe in your relationship?: Yes
--- NOTE | 2023-02-20 12:33 | RESPIRATORY ---
Addendum entered by Libby Hoffman 02/21/23 16:14: Spoke with the sleep lab today and they stated the Patient's most recent sleep study was 01/15/2023. They also stated the results of this study will not be available for up to a month to a month and a half post testing. I also followed up with Brian from [facility] who stated he needs these results prior to being able to set the Patient up with a new machine. Addendum entered by Sheila Cantu 02/20/23 14:47: 1315-Brian from [facility] called back to let us know that the patient doesn't have a machine at [facility] and that he called his service center and discovered the patient had returned his machine back in September as he was having issues with the settings. [facility] was waiting on [facility] to send over his updated order from his sleep study last month so they could order him a new machine. I called the Sleep Center and let the medical secretary receptionist now that [facility] needs the new order along with progress notes from his latest sleep study. She will have her clinical staff look into this tomorrow as they are all out sick today. Original Note: Patient has home CPAP machine through [facility]. Machine is a AirSense 11. Settings: Auto CPAP 11-12 with a 3L O2 Bleed-In. I spoke with the pharmacy salesperson from [facility] this morning, Brian Christianson, and he confirmed device information and advised the patient hasn't worn the machine according to the device logs since December. [facility] confirmed patient's machine is not hooked up nor can they find it. Brian from [facility] is going to [facility] this afternoon to help the staff there get the machine set-up for the patient and he will call the respiratory dept back once complete.
--- NOTE | 2023-02-20 12:51 | PHA.REVIEW2 ---
Pharmacy Admission Review Admission Clinical Review Admission Pharmacy Review: Respiratory insufficiency (Acute) Respiratory failure with hypoxia (Acute) Pneumonia (Acute) Penicillins Allergy (Severe, Unverified 02/19/23 14:36) Anaphylaxis dextromethorphan [From Dimetapp Cold-Congestion] Allergy (Mild, Unverified 02/19/23 14:36) Skin Rash diphenhydramine [From Dimetapp Cold-Congestion] Allergy (Mild, Unverified 02/19/23 14:36) Skin Rash guaifenesin [From Dimetapp Cold-Congestion] Allergy (Mild, Unverified 02/19/23 14:36) Skin Rash phenylephrine [From Dimetapp Cold-Congestion] Allergy (Mild, Unverified 02/19/23 14:36) Skin Rash pseudoephedrine [From Dimetapp Cold-Congestion] Allergy (Mild, Unverified 02/19/23 14:36) Skin Rash bupropion [From Wellbutrin] Adverse Reaction (Intermediate, Unverified 02/19/23 14:36) Other (See Comment) Resuscitation Status Full Code Height 5 ft 9 in Weight 103 kg Comments Comments/Follow Ups: Per morning meeting, patient needs at home BiPAP set up before he can be safely discharged. Reached out to provider about DVT prophylaxis, they are looking into it. Pharmacy Admission Review Renal Dosing Renal Dosing: BUN 17 mg/dL (7-18) 02/20/23 07:32 Creatinine 0.8 mg/dL (0.70-1.30) 02/20/23 07:32 Medications needing adjustments: Reviewed (CrCl 91.74 mL/min) Anticoagulation Anticoagulation: Hgb 16.3 g/dL (13.5-17.5) 02/20/23 08:25 Hct 52.5 % (40.0-50.0) H 02/20/23 08:25 Plt Count 282 10^3/uL (130-400) 02/20/23 08:25 Creatinine 0.8 mg/dL (0.70-1.30) 02/20/23 07:32 DVT Prophylaxis: Intervened (No current order for DVT prophylaxis, reached out to provider to verify.) Relevant Labs Relevant Labs: Sodium 140 mmol/L (136-145) 02/20/23 07:32 Potassium 4.3 mmol/L (3.5-5.1) 02/20/23 07:32 Chloride 100 mmol/L (98-107) 02/20/23 07:32 Magnesium 1.7 mg/dL (1.8-2.4) L 02/20/23 07:32 Electrolytes, C-Reactive P, ESR: Reviewed (VBG pCO2 down to 58 from 83 (02/19/23). Glucose 230, Ox currently 88 L) DM Control DM Control: Reviewed Insulin Dosing, Diabetic Medication: Has order for metformin (home med), glucose was elevated today 230 at 0732 Cardiac Review BP, HR, EF%: Reviewed (BP WNL) QTc Review QTc: Reviewed (444 EKG from 02/19/23 ) IV to PO Switch IV Medications: Reviewed Home Meds Home Med List reviewed: Reviewed Current Meds Current Medication Order Review: Reviewed Pharmacy Antibiotic Review Relevant Labs: Relevant Labs 02/19/23 16:58 Procalcitonin < 0.1 Pharmacy Antibiotic Activity: Reviewed, no change Comments: On azithromycin (prophylaxis dose from home med), and cefepime for COPD exacerbation. Comments Comments/Follow Ups: Per morning meeting, patient needs at home BiPAP set up before he can be safely discharged. Reached out to provider about DVT prophylaxis, they are looking into it.
--- NOTE | 2023-02-20 12:55 | PGE_ITS ---
Date of Service Date of service: 02/20/23 Time of Service: 12:55 Assessment and Plan Assessment and plan (1) Acute on chronic respiratory failure with hypoxia and hypercapnia: Status: Acute Assessment and plan: In setting of an acute exacerbation of COPD, though this appears to have already improved to near-baseline. Off of BiPAP today. Should sleep with BIPAP tonight. Continue steroids (decreased dose), scheduled + prn nebs. No evidence of PNA - d/c cefepime. Would still continue azithromycin for the COPD exacerbation. (2) COPD (chronic obstructive pulmonary disease): Status: Chronic Assessment and plan: As above Qualifiers: COPD type: COPD with acute exacerbation Qualified Code(s): J44.1 - Chronic obstructive pulmonary disease with (acute) exacerbation (3) Obstructive sleep apnea: Status: Chronic Assessment and plan: Supposed to be on BiPAP. See above We will again attempt to find out the results of the updated sleep study and new orders for BiPAP and coordinate this with his DME company. (4) Hypomagnesemia: Status: Acute Assessment and plan: Replete; recheck in am (5) Bipolar 1 disorder: Status: Chronic Assessment and plan: Continue home ashu elizabeth, (6) Diabetes: Status: Chronic Assessment and plan: Anticipate steroid-induced hyperglycemia. Start SSI Qualifiers: Diabetes mellitus type: type 2 Diabetes mellitus manager terminal insulin use: without jail use Diabetes mellitus complication status: without complication Qualified Code(s): E11.9 - Type 2 diabetes mellitus without complications (7) Tobacco abuse: Status: Chronic Assessment and plan: Provide nicotine gum (8) DVT prophylaxis: Status: Acute Assessment and plan: SC enoxaparin (9) Discharge planning issues: Status: Acute Assessment and plan: Full code C/s PT and palliative care Transfer out of the ICU. Subjective Subjective Interval history since last seen: Mr Colunga states that he is feeling back to his baseline. He denies dizziness, CP, SOB different than his baseline, states he hasn't coughed today, denies n/v. Spent the night on BiPAP and was transitioned off of it this morning back to his usual 3L of O2. He states that he uses a BiPAP machine at home, but that it has not been working because the bottom part has not been put on top yet. RTs have contacted [facility] to go investigate what has happened with the machine. Per nursing at [facility], the actual machine is not visualizeable in the room - it's not set up. RT then spoke with [facility]: the machine was not in the room. Further investigation revealed that the machine was shipped back to the servicing center after it started having issues in September and that a new machine would be mailed back after updated sleep study and order were sent to them from [facility] sleep Center. This appears to not have yet happened and, per RT, the clinical staff is out sick and there is noone at the sleep center to access the clinical records. It does appear that there was an updated sleep study. Exam Narrative Exam Narrative: General: Pleasant middle-aged male who is A&Ox3, resting in bed, appears comfortable, no dyspnea/tachypnea/cyanosis, mentating well HEENT: EOMI, MMM Heart: RRR, no m/r/g Lungs: Diminished breath sounds B Abdomen: soft, nontender, nondistended Extremities: no edema BLEs Objective Last Vital Signs Temp 36.7 C 02/20/23 07:15 Pulse 66 02/20/23 08:01 Resp 19 02/20/23 08:01 BP 106/60 02/20/23 08:01 Pulse Ox 88 L 02/20/23 08:01 Laboratory Results - last 24 hr 02/19/23 02/19/23 02/19/23 13:38 14:40 15:30 WBC 7.52 RBC 5.82 H Hgb 16.6 Hct 54.9 H MCV 94 MCH 28.5 MCHC 30.2 L RDW 15.1 H Plt Count 271 MPV 9.0 Immature Gran % 0.4 Neutrophils % 70.6 Lymphocytes % 16.2 Monocytes % 9.6 Eosinophils % 2.5 Basophils % 0.7 Nucleated RBC % 0.0 Absolute Neutrophils 5.31 Absolute Lymphocytes 1.22 Absolute Monocytes 0.72 Absolute Eosinophils 0.19 Absolute Basophils 0.05 VBG pH 7.32 VBG pCO2 81 H* VBG pO2 33 VBG HCO3 42 H VBG Total CO2 38 H VBG O2 Saturation 59 VBG Base Excess 16 H Sodium 144 Potassium 4.4 Chloride 102 Carbon Dioxide 41.2 H Anion Gap 0.8 L BUN 10 Creatinine 0.8 Est GFR (CKD-EPI 2020) 100.69 Glucose 94 Calcium 8.8 Magnesium Total Bilirubin 0.6 AST 14 L ALT 15 L Alkaline Phosphatase 78 Total Protein 6.5 Albumin 3.2 L Procalcitonin COVID-19 Source Nasopharynx SARS-CoV-2 (PCR) Negative Influenza Type A (PCR) Negative Influenza Type B (PCR) Negative RSV (PCR) Negative Add-On Test Request 02/19/23 02/20/23 02/20/23 16:58 05:32 07:32 WBC RBC Hgb Hct MCV MCH MCHC RDW Plt Count MPV Immature Gran % Neutrophils % Lymphocytes % Monocytes % Eosinophils % Basophils % Nucleated RBC % Absolute Neutrophils Absolute Lymphocytes Absolute Monocytes Absolute Eosinophils Absolute Basophils VBG pH 7.32 7.52 H 7.39 VBG pCO2 83 H* 41 58 H VBG pO2 31 157 55 VBG HCO3 43 H 33 H 36 H VBG Total CO2 38 H 31 H VBG O2 Saturation 53 > 99 89 VBG Base Excess 16 H 10 H 11 H Sodium 140 Potassium 4.3 Chloride 100 Carbon Dioxide 36.6 H Anion Gap 3.4 BUN 17 Creatinine 0.8 Est GFR (CKD-EPI 2020) 100.69 Glucose 230 H Calcium 8.6 Magnesium 1.7 L Total Bilirubin AST ALT Alkaline Phosphatase Total Protein Albumin Procalcitonin < 0.1 COVID-19 Source SARS-CoV-2 (PCR) Influenza Type A (PCR) Influenza Type B (PCR) RSV (PCR) Add-On Test Request DONE 02/20/23 08:25 WBC 2.90 L RBC 5.74 Hgb 16.3 Hct 52.5 H MCV 92 MCH 28.4 MCHC 31.0 L RDW 14.6 H Plt Count 282 MPV 9.5 Immature Gran % 0.3 Neutrophils % 83.5 Lymphocytes % 13.8 Monocytes % 2.1 Eosinophils % 0.3 Basophils % 0.0 Nucleated RBC % 0.0 Absolute Neutrophils 2.42 Absolute Lymphocytes 0.40 L Absolute Monocytes 0.06 L Absolute Eosinophils 0.01 Absolute Basophils 0.00 VBG pH VBG pCO2 VBG pO2 VBG HCO3 VBG Total CO2 VBG O2 Saturation VBG Base Excess Sodium Potassium Chloride Carbon Dioxide Anion Gap BUN Creatinine Est GFR (CKD-EPI 2020) Glucose Calcium Magnesium Total Bilirubin AST ALT Alkaline Phosphatase Total Protein Albumin Procalcitonin COVID-19 Source SARS-CoV-2 (PCR) Influenza Type A (PCR) Influenza Type B (PCR) RSV (PCR) Add-On Test Request Time Spent with Patient Time Spent with Patient: 35-49 minutes Time was spent: preparing to see the patient(eg.review tests), obtaining and/or reviewing separately otained hiistory, ordering medications,tests, procedures, referring, communicating with other health healthcare business analyst, indepentently interpreting results, counseling the patient and care coordination
--- NOTE | 2023-02-20 15:10 | IN_ITS ---
PT Notes Visit Reasons: COPD Physical Therapy Inpatient Initial Evaluation Date: 02/20/2023 Referring Doctor: Omar Farmer MD PT Orders: PT CONSULT: Limited Ability Precautions: Fall. Standard. Activity as tolerated. On 4L of oxygen via NC. Patient Profile/Admitting Diagnosis: Nathan is a 62-year-old male on palliative care admitted for continued management of acute respiratory failure with hypoxia and hypercapnia from COPD, JEREMIAS, hypomagnesemia, bipolar I disorder, diabetes, and tobacco abuse. PMHX: All Active Problems (Updated 12/26/22 @ 19:15 by Konrad Sampson MD) COPD (chronic obstructive pulmonary disease) (Chronic) Hallucinations (Acute) Suicide ideation (Acute) Headache (Acute) Seborrheic dermatitis (Acute) COVID-19 (Acute) Altered mental status (Acute) Septic shock (Acute) Right bundle branch block (Acute) Elevated troponin (Acute) Elevated LFTs (Acute) MICHAEL (acute kidney injury) (Acute) Hyperkalemia (Acute) Lactic acidosis (Acute) COVID (Acute) Respiratory failure with hypoxia and hypercapnia (Acute) Nicotine dependence, cigarettes, uncomplicated (Acute) Respiratory failure with hypoxia (Acute) Hypoxemia (Acute) Sleep apnea (Acute) Depression (Chronic) Tobacco dependence (Acute) Supplemental oxygen dependent (Acute) Bipolar 1 disorder (Acute) Obesity (Chronic) Incontinence of urine (Acute) Diabetes (Chronic) DVT prophylaxis (Acute) HTN (hypertension) (Chronic) Obstructive sleep apnea (Chronic) COPD (chronic obstructive pulmonary disease) (Chronic) Suicidal ideations (Acute) Hallucinations (Acute) Hypertension (Chronic) Medical History Palliative care patient Obesity (BMI 30-39.9) Hyperlipidemia Schizophrenia Social History/Home Situation: Resident of [facility]. Independent with mobility ADL performance using SPC. Equipment Owned/DME: [employer] Subjective: Still feels unwell but is agreeable to getting out of his chair and to being assessed for walking. Reports feeling a little lightheaded. States that he has fallen at least 3x this past year. Objective: General Observation: Seated on bedside chair. Oxygen supplementation via NC at 4 L/min. In NAD. Mental Status: Alert and oriented as to person, place, time, and purpose. Able to pay attention but needs extra time to respond at times. Pain: Denies Vital Signs: Oxygen saturation from 87% through 91% on 4 L during ambulation ROM: Right Upper Extremity: Shoulder Flexion up to 100 degrees. Shoulder abduction up to 100 degrees Elbow flexion WFL. Wrist flexion WFL. Functional opening and closing of hand WFL. Left Upper Extremity: Shoulder Flexion up to 100 degrees. Shoulder abduction up to 100 degrees Elbow flexion WFL. Wrist flexion WFL. Functional opening and closing of hand WFL. Right Lower Extremity: Hip flexion up to 110 degrees. Hip abduction WFL. Knee flexion up to 100 degrees. Ankle dorsiflexion to neutral only. Ankle plantarflexion WFL. Left Lower Extremity: Hip flexion up to 110 degrees. Hip abduction WFL. Knee flexion up to 100 degrees. Ankle dorsiflexion to neutral only. Ankle plantarflexion WFL. Strength: Right Upper Extremity: Shoulder flexors 3-/5. Shoulder abductors 3-/5. Elbow flexors 4-/5. Elbow extensors 4-/5. Senior Manufacturing Supervisor weak but functional. Left Upper Extremity: Shoulder flexors 3-/5. Shoulder abductors 3-/5. Elbow flexors 4-/5. Elbow extensors 4-/5. Senior Manufacturing Supervisor weak but functional. Right Lower Extremity: Hip flexors 3-/5. Hip abductors 4-/5. Knee flexors 3-/5. Knee extensors 4-/5. Ankle dorsiflexors 3-/5. Ankle plantarflexors 4-/5. Left Lower Extremity: Hip flexors 3-/5. Hip abductors 4-/5. Knee flexors 3-/5. Knee extensors 4-/5. Ankle dorsiflexors 3-/5. Ankle plantarflexors 4-/5. Bed Mobility/Transfers: Sit to stand contact guard assist Stand to sit stand by assist Bed to reclining chair stand by assist Reclining chair to bed stand by assist Gait: Instructed patient with level surface ambulation using FWW of 100 feet requiring contact guard assist. Sadie decreased. Step height decreased. Step length decreased. Minimal shortness of breath but oxygen saturation remained above 90% throughout. Inside room, able to walk without an assistive device for 15 feet without LOB. Balance: Static Sitting: Normal Dynamic Sitting: Normal Static Standing: Good Dynamic Standing: Fair Special Tests: Mobility Limitations Standardized Measure [facility] 6 clicks Basic Mobility Inpatient Short Form: Raw Score: 23 CMS Score: 11% deficit Informed Consent/Education: Patient was instructed in purpose of PT consult and plan of care. Agreeable to proceed with established PT POC to achieve personal goals. Assessment: Patient presents with clinical signs and symptoms consistent with current/admitting diagnoses that have resulted to mobility limitations, gait instability, generalized weakness, and overall ADL decline as demonstrated by the following impairment level findings: 1. Decreased strength to B UE/LE major muscle groups 2. Impaired standing balance 3. Impaired activity tolerance 4. Limitation of joint range of motion in hip and knee for flexion 5. Shortness of breath requiring 2 L per minute of oxygen supplementation Impairments are contributing to the following functional limitations: 1. Difficulty with ambulation without assistive device and physical assistance 2. Increased completion time for mobility ADL performance 3. Increased risk for falls 4. Difficulty with managing steps alone safely Patient is assessed as a 21491 moderate complexity based on the following: History: 61-year-old male with past medical history as indicated above Examination: Demonstrable impairment in strength, balance, and mobility level with underlying impairments and functional limitations as exhibited above as well as deficit score of 11% utilizing the [facility] Mobility Inpatient Short Form Presentation: Evolving Decision Makin moderate complexity Goals: Goals X1 week 1. Supine-Sit independent 2. Sit-Supine independent 3. Sit-Stand independent 4. Stand-Sit independent with no AD 5. Bed-Chair independent with no AD 6. Chair-Bed independent with no AD 7. Independent gait on level surface with use of SPC for at least 300 feet without report of pain nor dyspnea 9. Good static and dynamic standing balance/tolerance Plan of Care/Treatment Plan: 1-2x/day, 7 days/week x 1 week. Plan of care has been reviewed with the [facility] providing the service under Physical Therapy direction. Initiate Physical Therapy intervention for pain management as needed, strengthening, bed mobility, transfers, gait, stairs, balance training, and use of assistive device. DISCHARGE RECOMMENDATIONS: [] Home with no services [] [X] Home with services. Home when medically cleared by hospitalist. Recommend patient will benefit from home health PT services in order to progress mobility level using SPC, assess home safety, identify additional equipment needs, and establish a functional maintenance program that will increase ability of patient to remain at home. [] Home with outpatient PT [] [] SNF for continued rehabilitation [] [] [facility] [] [] SNF versus LTC based on ability to participate and progress [] TREATMENT CODE/TIME: 27645 x 20 minutes for 1 unit, 38155 x 20 minutes beginning at 15:10 PM. Thank you for the opportunity to participate in the care of this patient. Faith Brown PT, DPT, CLT [facility] [place], [place]
[2023-02-20] MEDS: Nicotine 2 MG GUM CH (16:40)
[2023-02-20] MEDS: Enoxaparin 40 MG/0.4 ML SYR SC (16:40)
[2023-02-20] MEDS: Insulin Aspart 300 UNITS/3 ML PEN SC (16:46)
[2023-02-20] MEDS: Divalproex Sodium 500 MG TAB.ER.24H PO (21:45)
[2023-02-20] MEDS: Atorvastatin 20 MG TAB PO (21:45)
[2023-02-20] MEDS: Prazosin 1 MG CAP 3 MG PO (21:45)
[2023-02-21] VITALS (14 sets, daily range): BP systolic 115–127; BP diastolic 72–73; PULSE 57–88; RESP 2–20; TEMP 35.3–36.3; O2SAT 83–95
[2023-02-21] MEDS: Albuterol/Ipratropium 3 ML UPD VIAL UPD ×4 (01:29→20:15)
[2023-02-21] MEDS: Melatonin 3 MG TAB PO ×2 (01:52→21:38)
[2023-02-21 06:43] LABS: Abs Immature Grans 0.02 10^3/uL (0.0-0.06); Absolute Basophil Count 0.01 10^3/uL (0.0-0.2); Absolute Eosinophil Count 0.01 10^3/uL (0.0-0.7); Absolute Lymphocyte Count 1.09 10^3/uL (1.2-3.4); Absolute Monocyte Count 0.92 10^3/uL (0.1-0.8); Absolute Neutrophil Count 5.14 10^3/uL (1.2-6.7); Basophils % 0.1; Eosinophils % 0.1; HCT 47.3 % (40.0-50.0); Immature Grans % 0.3; Lymphocytes % 15.2; MCH 28.4 pg (27.0-33.0); MCHC 31.7 % (32.0-36.0); MCV 90 fL (80-95); MPV 9.3 fL (8.0-11.0); Monocytes % 12.8; Neutrophils % 71.5; Platelet Count 260 10^3/uL (130-400); RBC 5.28 10^6/uL (4.36-5.78); RDW 14.4 % (11.8-14.1); RDW-SD 47.1 fL; WBC 7.19 10^3/uL (4.4-10.8)
[2023-02-21 07:01] LABS: Anion Gap 1.5 mmol/L (3-11); BUN 14 mg/dL (7-18); CO2 36.5 mmol/L (21.0-32.0); CREATININE 0.7 mg/dL (0.70-1.30); Calcium 8.6 mg/dL (8.5-10.1); Chloride 101 mmol/L (98-107); Estimated GFR 104.83 (mL/min/1.73m2); Glucose 147 mg/dL (74-106); Magnesium 1.9 mg/dL (1.8-2.4); Potassium 4.1 mmol/L (3.5-5.1); Sodium 139 mmol/L (136-145)
[2023-02-21] MEDS: predniSONE 20 MG TAB 40 MG PO (07:49)
[2023-02-21] MEDS: ARIPiprazole 5 MG TAB 20 MG PO (07:49)
[2023-02-21] MEDS: Lisinopril 20 MG TAB PO ×2 (07:49→21:38)
[2023-02-21] MEDS: Azithromycin 250 MG TAB PO (07:49)
[2023-02-21] MEDS: Pantoprazole 40 MG TABCR PO (07:49)
[2023-02-21] MEDS: Cholecalciferol (Vitamin D3) 1,000 UNIT TAB 1000 UNITS PO (07:49)
[2023-02-21] MEDS: Normal Saline Flush 10 ML SYR IVP (07:51)
[2023-02-21] MEDS: Budesonide/Formoterol 160/4.5 6 GM 60 PUFF INH IH ×2 (08:09→20:20)
[2023-02-21] MEDS: Umeclidinium 7 CAP INHALER 1 CAP IH (08:10)
[2023-02-21] MEDS: Insulin Aspart 300 UNITS/3 ML PEN SC ×3 (12:09→21:38)
--- NOTE | 2023-02-21 12:40 | W.NUTRFU ---
Date of service: 02/21/23 Time of Service: 12:40
--- NOTE | 2023-02-21 12:56 | CMPROGNOTE_ITS ---
Date of service: 02/21/23 Time of Service: 12:56 Care Management Progress Note Progress Note Text Progress Note Text: S/O: Nathan was lying in bed when CM met with him. He reported that he is not feeling well today. CM asked if he was able to wear the Bipap overnight, and he stated that he does not like to wear it because it is tight on his face, and it is not comfortable. CM asked if he can tolerate it better at home, and he stated that he has never been able to wear it, even at home, as he is not comfortable with it on. Per report, he did not pass his exercise oximetry, as he required 8LO2 during ambulation. CM will continue to follow. A: Nathan is a 62 year old male admitted to [facility] on 02/19/23 for COPD. P: Anticipate Nathan will return to [facility] once he is medically cleared. He will transport via private vehicle. He will follow up with his PCP and discharge plan of care. CM will continue to follow.
--- NOTE | 2023-02-21 14:02 | CHAPLAIN ---
I met Nathan yesterday evening when he was in the ICU. He's been moved out to Med/Surg. Today he was sitting at the edge of her bed coloring when I stopped in. He shared some personal history about growing up in [place]. He said his parents and his brother have all and he feels responsible at times. He said he left his parents house at 19, and then again a few years later, and said terrible things before he left. He didn't connect this to how they . I asked if he is able to speak with anyone about his parents' and brother's and he said that the staff at [facility] tell him they aren't counselors, and counselors don't visit often. Nathan said he hasn't slept well here, and that he doesn't sleep well at [facility]. He shares a room with a man who fidgets with his hands constantly, according to Nathan, and repeats phrases a lot. Nathan said this energy makes him more tense. Nathan asked for some paper to draw on and I got that for him. When I returned his arm was bleeding where his IV was so we called for his nurse. I will continue to visit.
--- NOTE | 2023-02-21 15:01 | W.PALLCONSUL ---
Date of service: 02/21/23 Time of Service: 15:02 History of Present Illness Narrative: Nathan was seen in his room at [facility]. He was laying in bed. He was alone at the time of the visit. He feels his breathing is better now than when he came in. He feels fatigued. He states he was up all night until 0700 this morning. He has had several falls, 3 in the last month. He has a walker but he does not usually use it. He uses his cane more. He has ROQUE and his back hurt. Support: he identifies, James, caregiver at [facility] as a support person. He states he does not trust him, he is just getting to know them. He has a counselor, Anne, through [facility] but she is young and hard to relate to. This will be his second Shannon at [facility]. The other clients irritate him at times. It is unclear what is accurate but he tells me that his dad in 2005 of CHF, brother in 2018 on Nathan's birthday (age 60), mother 2020. He reports that all of their deaths were related to the stress that he caused them. He also had another brother that as a child, he does not know what he of. He went on to talk about a sister in [place] or [place] that he lived with for a summer but she is not part of his life anymore. He grew up in [place], [place]. Spiritual: He states he went to [employer] growing up. He saw Hospital Welfare Case Worker today and enjoyed the visit. He states he needs to get his stuff in order. He reports that he has $300,000 that the [employer] would take. He thinks he would give it to his aunt or to the people that own [facility]. Discussed [facility]. He thinks he would choose [facility], but she owns the community correction where he lives. Discussed CODE status. He states, I think I am ready to go. After further discussion, he states he is not ready to actually change his CODE status. He reports that he is his own person/no guardian at this time. He is open to further discussion in the future but it is difficult to have a conversation with him due to him changing the subject frequently and giving conflicting answers to questions frequently. Assessment and Plan Assessment and plan (1) Acute on chronic respiratory failure with hypoxia and hypercapnia: Status: Acute (2) COPD (chronic obstructive pulmonary disease): Status: Chronic Qualifiers: COPD type: COPD with acute exacerbation Qualified Code(s): J44.1 - Chronic obstructive pulmonary disease with (acute) exacerbation (3) Obstructive sleep apnea: Status: Chronic Assessment and plan: Does not have BiPAP at [facility]. (4) Hypomagnesemia: Status: Resolved (5) Bipolar 1 disorder: Status: Chronic Assessment and plan: Lives at [facility]. (6) Diabetes: Status: Chronic Qualifiers: Diabetes mellitus type: type 2 Diabetes mellitus intermediate school teacher insulin use: without intermediate school teacher use Diabetes mellitus complication status: without complication Qualified Code(s): E11.9 - Type 2 diabetes mellitus without complications (7) Tobacco abuse: Status: Chronic (8) Palliative care patient: Assessment and plan: Nathan Colunga is a pleasant 62 year old man who is in the hospital for COPD exacerbation, also w/ Hx of bipolar disorder, tobacco abuse, chronic respiratory failure, JEREMIAS. He lives at [facility]. He was seen once by Palliative care in 2020 and palliative was consulted for continuity of care while here in the hospital. He is a FULL CODE. Reviewed CODE STATUS. He states he is ready to go, however, after further discussion, he states he is not ready to change his code status. He wants to get his affairs in order. He denies having HCA or AD. He names his [facility] counselor and his home care providers as support people for him. He is feeling better overall. It is difficult to determine what is accurate and what is not when talking to him. I am not sure if he would be interested in f/u and if palliative would be of benefit to him. Review of Systems Narrative: per hpi PFSH All Active Problems (Updated 02/21/23 @ 15:43 by Lesvia Hayden NP) Discharge planning issues (Acute) Tobacco abuse (Chronic) Acute on chronic respiratory failure with hypoxia and hypercapnia (Acute) Respiratory insufficiency (Acute) Acute and chronic respiratory failure (Acute) Acute hypoxemic respiratory failure (Acute) COPD (chronic obstructive pulmonary disease) (Chronic) Hallucinations (Acute) Suicide ideation (Acute) Headache (Acute) Seborrheic dermatitis (Acute) COVID-19 (Acute) Altered mental status (Acute) Septic shock (Acute) Right bundle branch block (Acute) Elevated troponin (Acute) Elevated LFTs (Acute) MICHAEL (acute kidney injury) (Acute) Hyperkalemia (Acute) Lactic acidosis (Acute) COVID (Acute) Respiratory failure with hypoxia and hypercapnia (Acute) Nicotine dependence, cigarettes, uncomplicated (Acute) Respiratory failure with hypoxia (Acute) Hypoxemia (Acute) Sleep apnea (Acute) Depression (Chronic) Tobacco dependence (Acute) Pneumonia (Acute) Supplemental oxygen dependent (Acute) Bipolar 1 disorder (Chronic) Obesity (Chronic) Incontinence of urine (Acute) Diabetes (Chronic) DVT prophylaxis (Acute) HTN (hypertension) (Chronic) Obstructive sleep apnea (Chronic) COPD (chronic obstructive pulmonary disease) (Chronic) Suicidal ideations (Acute) Hallucinations (Acute) Hypertension (Chronic) Medical History Palliative care patient Obesity (BMI 30-39.9) Hyperlipidemia Schizophrenia Family History Other Adopted Social History Smoking/Tobacco Use Status: Current every day Tobacco Type: cigarettes Smoking packs per day: 0 Smoking cigarettes per day: 0.0 Years smoked: 30 Smoking pack-years: 0.00 Tobacco: How many years used: 30 Smoking risk assessment performed?: Yes Alcohol Intake: former Drug use: Never Substance use type: does not use Caregiver/Support person: No Household members: none Housing: assisted living facility Number of Children: 0 Communication Needs: Hard of Hearing and Corrective Lenses Education Level: high school Do you need help understanding health information?: Always current occupation: disabled due to mental illness Pets and animals: No Current gender identity: male What is your relationship status?: never How often do you talk on the phone with friends or family?: never How often do you get together with friends or relatives?: never Panel score (0-1 are the most socially isolated patients): 0 What type of physical activity do you participate in: none and sedentary lifestyle Frequency: does not exercise Special mannie needs: No Seatbelt use: always Do you feel safe at home: No (pt states feeling unsafe but cannot explain why.) Do you feel safe in your relationship?: Yes Exam Narrative Exam Narrative: General: pleasant, middle aged man, laying in the hospital bed with HOB elevated. He is talkative, he has a flat effect. HEENT: normocephalic, atraumatic, EOMI, mmm Neck: supple Respiratory: respirations appear unlabored at rest, he is wearing O2 via nc. Extremities: moves all 4 extremities freely, +1 edema to BLEs. Results Last Vital Signs Temp 35.3 C L 02/21/23 07:43 Pulse 61 02/21/23 14:26 Resp 18 02/21/23 14:26 BP 115/72 02/21/23 07:43 Pulse Ox 95 02/21/23 14:26 Labs 02/21/23 06:01 02/21/23 06:01 Labs: Laboratory Results - last 24 hr 02/21/23 06:01 WBC 7.19 RBC 5.28 Hgb 15.0 Hct 47.3 MCV 90 MCH 28.4 MCHC 31.7 L RDW 14.4 H Plt Count 260 MPV 9.3 Immature Gran % 0.3 Neutrophils % 71.5 Lymphocytes % 15.2 Monocytes % 12.8 Eosinophils % 0.1 Basophils % 0.1 Nucleated RBC % 0.0 Absolute Neutrophils 5.14 Absolute Lymphocytes 1.09 L Absolute Monocytes 0.92 H Absolute Eosinophils 0.01 Absolute Basophils 0.01 Sodium 139 Potassium 4.1 Chloride 101 Carbon Dioxide 36.5 H Anion Gap 1.5 L BUN 14 Creatinine 0.7 Est GFR (CKD-EPI 2020) 104.83 Glucose 147 H Calcium 8.6 Magnesium 1.9
--- NOTE | 2023-02-21 15:36 | PGE_ITS ---
Date of Service Date of service: 02/21/23 Time of Service: 15:36 Assessment and Plan Assessment and plan (1) Acute on chronic respiratory failure with hypoxia and hypercapnia: Status: Acute Assessment and plan: At baseline continue BiPap at night Continue steroids, scheduled + prn nebs. No evidence of PNA - d/c cefepime. Would still continue azithromycin for the COPD exacerbation. (2) COPD (chronic obstructive pulmonary disease): Status: Chronic Assessment and plan: As above Qualifiers: COPD type: COPD with acute exacerbation Qualified Code(s): J44.1 - Chronic obstructive pulmonary disease with (acute) exacerbation (3) Obstructive sleep apnea: Status: Chronic Assessment and plan: Supposed to be on BiPAP. See above RT to attempt to find out the results of the updated sleep study and new orders for BiPAP and coordinate this with his DME company. (4) Hypomagnesemia: Status: Resolved Assessment and plan: Resolved 1.9 (5) Bipolar 1 disorder: Status: Chronic Assessment and plan: Continue home ashu elizabeth, (6) Diabetes: Status: Chronic Assessment and plan: Anticipate steroid-induced hyperglycemia. Continue SSI Qualifiers: Diabetes mellitus type: type 2 Diabetes mellitus performance improvement specialist insulin use: without performance improvement specialist use Diabetes mellitus complication status: without complication Qualified Code(s): E11.9 - Type 2 diabetes mellitus without complications (7) Tobacco abuse: Status: Chronic Assessment and plan: Provide nicotine gum (8) DVT prophylaxis: Status: Acute Assessment and plan: SC enoxaparin (9) Discharge planning issues: Status: Acute Assessment and plan: Full code PT Pall care Subjective Subjective Patient reports: no new complaints, tolerating a regular diet, voiding w/o difficulty and afebrile; denies diarrhea, nausea, vomiting or shortness of breath Interval history since last seen: Waiting to hear from RT regarding home BiPap unit Exam Narrative Exam Narrative: General: Pleasant middle-aged male who is A&Ox3, resting in bed, appears comfortable, no dyspnea/tachypnea/cyanosis, mentating well HEENT: EOMI, MMM Heart: RRR, no m/r/g Lungs: Diminished breath sounds bilaterally Abdomen: soft, nontender, nondistended Extremities: no edema BLEs Objective Last Vital Signs Temp 35.3 C L 02/21/23 07:43 Pulse 61 02/21/23 14:26 Resp 18 02/21/23 14:26 BP 115/72 02/21/23 07:43 Pulse Ox 95 02/21/23 14:26 Laboratory Results - last 24 hr 02/21/23 06:01 WBC 7.19 RBC 5.28 Hgb 15.0 Hct 47.3 MCV 90 MCH 28.4 MCHC 31.7 L RDW 14.4 H Plt Count 260 MPV 9.3 Immature Gran % 0.3 Neutrophils % 71.5 Lymphocytes % 15.2 Monocytes % 12.8 Eosinophils % 0.1 Basophils % 0.1 Nucleated RBC % 0.0 Absolute Neutrophils 5.14 Absolute Lymphocytes 1.09 L Absolute Monocytes 0.92 H Absolute Eosinophils 0.01 Absolute Basophils 0.01 Sodium 139 Potassium 4.1 Chloride 101 Carbon Dioxide 36.5 H Anion Gap 1.5 L BUN 14 Creatinine 0.7 Est GFR (CKD-EPI 2020) 104.83 Glucose 147 H Calcium 8.6 Magnesium 1.9 Time Spent with Patient Time Spent with Patient: 35-49 minutes Time was spent: preparing to see the patient(eg.review tests), ordering medications,tests, procedures, referring, communicating with other health caretaker, indepentently interpreting results and care coordination
[2023-02-21] MEDS: Acetaminophen 500 MG TAB 1000 MG PO ×2 (15:53→19:02)
[2023-02-21] MEDS: Enoxaparin 40 MG/0.4 ML SYR SC (15:54)
[2023-02-21] MEDS: Atorvastatin 20 MG TAB PO (21:38)
[2023-02-21] MEDS: Divalproex Sodium 500 MG TAB.ER.24H PO (21:38)
[2023-02-21] MEDS: Prazosin 1 MG CAP 3 MG PO (21:38)
--- NOTE | 2023-02-21 21:47 | NUR.NOTE ---
Nursing Note: Pt refusing CPAP at this time, informed him of the importance of keeping his O2 levels up. Pt states Maybe I'll try a little later, but I'm fine right now. He is currently sating 94% on 3L NC. Will continue to monitor.
[2023-02-22] VITALS (12 sets, daily range): BP systolic 108–125; BP diastolic 64–74; PULSE 56–75; RESP 8–20; TEMP 36–36.8; O2SAT 76–94
[2023-02-22 06:43] LABS: Abs Immature Grans 0.02 10^3/uL (0.0-0.06); Absolute Basophil Count 0.02 10^3/uL (0.0-0.2); Absolute Eosinophil Count 0.01 10^3/uL (0.0-0.7); Absolute Monocyte Count 0.69 10^3/uL (0.1-0.8); Absolute Neutrophil Count 4.56 10^3/uL (1.2-6.7); Basophils % 0.3; Eosinophils % 0.1; HCT 53.3 % (40.0-50.0); HGB 16.4 g/dL (13.5-17.5); Immature Grans % 0.3; Lymphocytes % 23.2; MCH 28.3 pg (27.0-33.0); MCHC 30.8 % (32.0-36.0); MCV 92 fL (80-95); MPV 9.4 fL (8.0-11.0); Neutrophils % 66.1; Platelet Count 263 10^3/uL (130-400); RDW 14.7 % (11.8-14.1); RDW-SD 49.7 fL
[2023-02-22 07:03] LABS: Anion Gap -0.1 mmol/L (3-11); BUN 13 mg/dL (7-18); CO2 39.1 mmol/L (21.0-32.0); CREATININE 0.7 mg/dL (0.70-1.30); Calcium 8.7 mg/dL (8.5-10.1); Chloride 104 mmol/L (98-107); Estimated GFR 104.83 (mL/min/1.73m2); Glucose 123 mg/dL (74-106); Magnesium 1.9 mg/dL (1.8-2.4); Potassium 4.4 mmol/L (3.5-5.1); Sodium 143 mmol/L (136-145)
[2023-02-22] MEDS: ARIPiprazole 5 MG TAB 20 MG PO (07:34)
[2023-02-22] MEDS: Normal Saline Flush 10 ML SYR IVP (07:34)
[2023-02-22] MEDS: predniSONE 20 MG TAB 40 MG PO (07:35)
[2023-02-22] MEDS: Lisinopril 20 MG TAB PO (07:35)
[2023-02-22] MEDS: Azithromycin 250 MG TAB PO (07:36)
[2023-02-22] MEDS: amLODIPine 5 MG TAB PO (07:37)
[2023-02-22] MEDS: Cholecalciferol (Vitamin D3) 1,000 UNIT TAB 1000 UNITS PO (07:37)
[2023-02-22] MEDS: Pantoprazole 40 MG TABCR PO (07:37)
[2023-02-22] MEDS: Umeclidinium 7 CAP INHALER 1 CAP IH (08:37)
[2023-02-22] MEDS: Budesonide/Formoterol 160/4.5 6 GM 60 PUFF INH IH (08:37)
[2023-02-22] MEDS: Albuterol/Ipratropium 3 ML UPD VIAL UPD (08:40)
--- NOTE | 2023-02-22 10:26 | W.PM.DS.N ---
Date of service: 02/22/23 Time of Service: 11:00 DS: Diagnosis Discharge Diagnosis (1) Acute on chronic respiratory failure with hypoxia and hypercapnia: Status: Acute (2) COPD (chronic obstructive pulmonary disease): Status: Chronic (3) Obstructive sleep apnea: Status: Chronic (4) Hypomagnesemia: Status: Resolved (5) Bipolar 1 disorder: Status: Chronic (6) Diabetes: Status: Chronic (7) Tobacco abuse: Status: Chronic Discharge Plan Disposition Patient Disposition: Home Condition: Fair Discharge Details Reason For Visit: COPD Admit Date/Time: 02/19/23 19:37 Admit Provider: Sukhdeep Collins Attending Provider: Sukhdeep Collins Primary Care Provider: MIMI PEREZ Hospital Course Hospital Course: This is a 62 year old male with COPD on home O2. Here 01/06 with pneumonia, returned for evaluation of SOB and crusting of his eyes. [place] to have viral syndrome, treated with steroids and updrafts. Patient started on BiPAP, then trialed 4 L NC with drop in sats to 80s. CXR showed persitent but improved RLL infiltrate. Started on Cefepime and Vanco. Patient did have a sleep study on Jan 15 and is awaiting results and recommendations for BiPap. Patient returned to baseline and was discharged to home with two more doses of prednisone. Patient was stable on discharge with SPO2 in the low 90s. He does have oxygen available to him at his residence. He should continue azithromycin daily. He did receive 24h of IV antibiotics in the hospital. He was told to follow up with sleep and PCP. Home Meds and New Rx's Prescriptions: New prednisone 20 mg Tablet 40 mg PO DAILY Qty: 2 0RF Continued metformin 750 mg tablet extended release 24 hr 750 mg PO DAILY Incruse Ellipta 62.5 mcg/actuation blister with device 1 inh inhalation DAILY Hold Instructions: Pt Stopped/Never Started melatonin 3 mg capsule 3 mg PO HS PRN ipratropium-albuterol 0.5 mg-3 mg(2.5 mg base)/3 mL solution for nebulization 3 ml inhalation Q4H PRN (Reason: wheezing) Qty: 540 12RF atorvastatin 20 mg tablet 20 mg PO HS azithromycin 250 mg tablet 250 mg PO DAILY Qty: 60 7RF (DME) blood-glucose meter Misc See Rx Instructions .Route Rx Instructions: As directed (DME) Disposable Brief Jumbo X-Large Misc See Rx Instructions .Route Rx Instructions: As directed (DME) Blood Glucose Test Strip See Rx Instructions .Route Rx Instructions: As directed (DME) lancets [OneTouch UltraSoft Lancets] Misc See Rx Instructions .Route Rx Instructions: As directed (DME) oxygen and supplies 2 liters 0 .Route .MEDSUPPLY nystatin 100,000 unit/gram powder 1 applic topical BID oxybutynin chloride 15 mg tablet extended release 24hr 30 mg PO QHS Qty: 180 3RF budesonide-formoterol [Symbicort] 160-4.5 mcg/actuation HFA aerosol inhaler See Rx Instructions .ROUTE .COMPLEX Rx Instructions: 2 puffs BID prazosin 1 mg capsule 3 mg PO HS lisinopril 20 mg tablet 20 mg PO BID amlodipine 5 mg tablet 5 mg PO DAILY divalproex 500 mg tablet extended release 24 hr 500 mg PO HS cyanocobalamin (vitamin B-12) [Vitamin B-12] 5,000 mcg Tablet, Sublingual 5,000 mcg SUBLINGUAL DAILY cholecalciferol (vitamin D3) [Vitamin D3] 25 mcg (1,000 unit) capsule 1,000 unit PO DAILY albuterol sulfate 90 mcg/actuation HFA aerosol inhaler 2 inh inhalation Q6H PRN aripiprazole 20 mg tablet 20 mg PO DAILY Discharge Instructions Instructions: COPD (Chronic Obstructive Pulmonary Disease) (ED) Additional Instructions: Please use your oxygen. Follow up with the sleep lab, they report your results should be in next week, follow their recommendations for BiPap. Take prednisone for two more days. Please return to the emergency department for any worsening symptoms. Stand Alone Forms: Nursing Discharge Form Referrals: MIMI PEREZ, FLIGHT CONTROL SPECIALIST [Primary Care Provider] - (Please call Friday to make a follow up appointment for 1-2 weeks Follow up w sleep lab re recommendations for BiPap (pending)) Activity:: Activity as Tolerated Equipment/Supplies:: Oxygen (L/min Below) Diet:: As Tolerated Discharge Orders Discharge Orders: Discharge Order (Routine); Ordered 02/22/23 Ordered By: Lesvia Hayden Discharge Data Discharge Date/Time-TO BE ENTERED AT DEPARTURE: 02/22/23 12:15 DS: Summary Time Spent with Patient providing and/or coordinating discharge services: Greater than 30 minutes Status at Discharge Functional status at discharge: independent ambulation Overall status at discharge: patient is back to baseline Mental Status: mental status grossly normal Speech and Movement: speech and movement normal Mood: congruent mood Affect: normal affect Exam Narrative Exam Narrative: General: Pleasant middle-aged male who is A&Ox3, resting in bed, appears comfortable, no dyspnea/tachypnea/cyanosis, mentating well HEENT: EOMI, MMM Heart: RRR, no m/r/g Lungs: Diminished breath sounds bilaterally Abdomen: soft, nontender, nondistended Extremities: no edema BLEs Psych Mental Status: mental status grossly normal Speech and Movement: speech and movement normal Mood: congruent mood Affect: normal affect DS: Data Vitals/I&O Vitals and I&O: Vital Signs Temperature 36.8 C 02/22/23 07:20 Temperature Source Tympanic 02/22/23 07:20 Pulse 61 02/22/23 10:00 Pulse Rhythm Regular 02/22/23 08:15 Pulse 80 02/20/23 10:00 Respiratory Rate 16 02/22/23 10:00 Respiratory Effort Normal, Non-Labored 02/22/23 08:15 Respiratory Depth Normal 02/22/23 08:15 Respiratory Pattern Normal 02/22/23 08:15 Blood Pressure 125/74 02/22/23 07:20 Blood Pressure Mean 92 02/20/23 16:55 Blood Pressure Position Supine 02/20/23 07:15 Pulse Oximetry 94 02/22/23 10:00 Oxygen Delivery Method Nasal Cannula 02/22/23 08:40 Oxygen Flow Rate 3 02/22/23 08:40 Fraction of Inspired Oxygen (FIO2) 40 02/22/23 10:00 Pain Level 8 02/22/23 07:20 Comment RN Notified 02/22/23 06:08 Intake & Output 02/21/23 02/21/23 02/22/23 11:59 23:59 11:59 Intake Total 300 / 310 Balance 300 / 310 Intake: IV Oral 300 / 300 Other: Urine Appearance Clear Clear Clear Comment voids independently Voiding Methods Toilet Data Completed and Pending Labs on day of discharge: Labs from last 24 hours 02/22/23 05:50 WBC 6.90 RBC 5.80 H Hgb 16.4 Hct 53.3 H MCV 92 MCH 28.3 MCHC 30.8 L RDW 14.7 H Plt Count 263 MPV 9.4 Immature Gran % 0.3 Neutrophils % 66.1 Lymphocytes % 23.2 Monocytes % 10.0 Eosinophils % 0.1 Basophils % 0.3 Nucleated RBC % 0.0 Absolute Neutrophils 4.56 Absolute Lymphocytes 1.60 Absolute Monocytes 0.69 Absolute Eosinophils 0.01 Absolute Basophils 0.02 Sodium 143 Potassium 4.4 Chloride 104 Carbon Dioxide 39.1 H Anion Gap -0.1 L BUN 13 Creatinine 0.7 Est GFR (CKD-EPI 2020) 104.83 Glucose 123 H Calcium 8.7 Magnesium 1.9 PFSH All Active Problems (Updated 02/21/23 @ 15:43 by Lesvia Hayden NP) Discharge planning issues (Acute) Tobacco abuse (Chronic) Acute on chronic respiratory failure with hypoxia and hypercapnia (Acute) Respiratory insufficiency (Acute) Acute and chronic respiratory failure (Acute) Acute hypoxemic respiratory failure (Acute) COPD (chronic obstructive pulmonary disease) (Chronic) Hallucinations (Acute) Suicide ideation (Acute) Headache (Acute) Seborrheic dermatitis (Acute) COVID-19 (Acute) Altered mental status (Acute) Septic shock (Acute) Right bundle branch block (Acute) Elevated troponin (Acute) Elevated LFTs (Acute) MICHAEL (acute kidney injury) (Acute) Hyperkalemia (Acute) Lactic acidosis (Acute) COVID (Acute) Respiratory failure with hypoxia and hypercapnia (Acute) Nicotine dependence, cigarettes, uncomplicated (Acute) Respiratory failure with hypoxia (Acute) Hypoxemia (Acute) Sleep apnea (Acute) Depression (Chronic) Tobacco dependence (Acute) Pneumonia (Acute) Supplemental oxygen dependent (Acute) Bipolar 1 disorder (Chronic) Obesity (Chronic) Incontinence of urine (Acute) Diabetes (Chronic) DVT prophylaxis (Acute) HTN (hypertension) (Chronic) Obstructive sleep apnea (Chronic) COPD (chronic obstructive pulmonary disease) (Chronic) Suicidal ideations (Acute) Hallucinations (Acute) Hypertension (Chronic) Medical History Palliative care patient Obesity (BMI 30-39.9) Hyperlipidemia Schizophrenia Family History Other Adopted Social History Smoking/Tobacco Use Status: Current every day Tobacco Type: cigarettes Smoking packs per day: 0 Smoking cigarettes per day: 0.0 Years smoked: 30 Smoking pack-years: 0.00 Tobacco: How many years used: 30 Smoking risk assessment performed?: Yes Alcohol Intake: former Drug use: Never Substance use type: does not use Caregiver/Support person: No Household members: none Housing: assisted living facility Number of Children: 0 Communication Needs: Hard of Hearing and Corrective Lenses Education Level: high school Do you need help understanding health information?: Always current occupation: disabled due to mental illness Pets and animals: No Current gender identity: male What is your relationship status?: never How often do you talk on the phone with friends or family?: never How often do you get together with friends or relatives?: never Panel score (0-1 are the most socially isolated patients): 0 What type of physical activity do you participate in: none and sedentary lifestyle Frequency: does not exercise Special mannie needs: No Seatbelt use: always Do you feel safe at home: No (pt states feeling unsafe but cannot explain why.) Do you feel safe in your relationship?: Yes Time Spent with Patient Time Spent with Patient: 45-69 minutes Time was spent: preparing to see the patient(eg.review tests), ordering medications,tests, procedures, referring, communicating with other health pet caretaker, indepentently interpreting results and care coordination
--- NOTE | 2023-02-22 11:40 | PDOC.CMDIS ---
Date of service: 02/22/23 Time of Service: 11:40 LACE Index Scoring Tool Questions: Length of Stay (in days): 4 - 6 Was the patient admitted via the E.D.?: Yes Comorbidities: Chronic Pulmonary Disease E.D. Visits: 3 Answers: Total Score: 12 Risk of Readmission: High Risk Care Management Discharge Plan Reason for Hospitalization: COPD Discharge Plan: Nathan will return to [facility] once he is medically cleared, per MD. He will resume baseline O2 and has portable concentrator with him for discharge. He will transport via private vehicle-via RCT coordinated by this news writer. SHELL spoke with James at [facility] to review discharge coordination. Nathan will follow up with his PCP and discharge plan of care as prescribed. Patient/Family Education Needs: Review discharge instructions, discuss Ask Me Three. Services Needed at Discharge: Transportation MH Services (Omit if N/A) Current MH Services: [facility]
== END 2023-02-22 12:15 | disposition home or self-care (01) | DRG 189 ==
LOC: ER 19:45 → ICU 20:50 → MS 02-20 19:46
PROVIDERS: Emergency Medicine; Internal Medicine; Nurse Practitioner Family; Admitting Provider General Practice; Emergency Provider Emergency Medicine; PCP Nurse Practitioner Family; Visit Provider General Practice
DX: J96.21 Acute and chronic respiratory failure with hypoxia (principal); J44.1 Chronic obstructive pulmonary disease with (acute) exacerbation; E87.20 Acidosis, unspecified; J96.22 Acute and chronic respiratory failure with hypercapnia; G47.33 Obstructive sleep apnea (adult) (pediatric); E83.42 Hypomagnesemia; E11.9 Type 2 diabetes mellitus without complications; F31.9 Bipolar disorder, unspecified; F17.210 Nicotine dependence, cigarettes, uncomplicated; Z99.81 Dependence on supplemental oxygen; L21.9 Seborrheic dermatitis, unspecified; I45.10 Unspecified right bundle-branch block; I10 Essential (primary) hypertension; F20.9 Schizophrenia, unspecified; E78.5 Hyperlipidemia, unspecified; E66.9 Obesity, unspecified; Z68.33 Body mass index [BMI] 33.0-33.9, adult; Z79.899 Other long term (current) drug therapy
CPT/HCPCS: 00123; 36415; 80048; 80053; 82805; 84145; 87637; 93005; 94618; 94640; 96365; 96366; 96367; 96375; 97162; 97530; 99285; J1650; 71045; 83735; 85025; 93010; 94660; 94664; 94760; 99222; 99232; 99239; J1100; J3490; J7512; J7620

== ENCOUNTER 2023-03-19 16:30 | Inpatient (IN) | payer MEDICARE, MEDICAID, SELFPAY ==
[2023-03-19] VITALS (120 sets, daily range): BP systolic 89–146; BP diastolic 61–103; PULSE 57–100; RESP 5–24; TEMP 36.4–37.6; O2SAT 79–94
--- NOTE | 2023-03-19 16:52 | ED.GENADUL_ITS ---
HPI General Stated Complaint: Fall/Non TraumaCriteria SANTA: 2 Date/Time Provider Initiated Documentation: 03/19/23 16:42. HPI Narrative: 62 year-old male presents to ED today by POV/ambulating on 3L O2 by [place]- notably 85% SpO2 after walking in, from home with a chief complaint of fall last night, states he hit his L parietal area on a towel rack in bathroom, denies LOC, denies vomiting- states he is short on breath as well in the setting of chronic COPD with onset after being treated for PNA 2 weeks ago. Quality described as generalized headache, no radiation to fever, syncope, chest pain, abdominal pain, nausea/vomiting, visual changes. Severity is described as 5-6/10. Palliating factors include nothing specific attempted. Provoking factors include nothing specific. Events leading up to the incident/Associated Symptoms: Patient has chronic severe COPD, is on 3L O2 at baseline. Patient also endorses chronic suicidality, but states he has no way to do that. Patient not anticoagulated. Related Data Home Medications Medication Instructions Recorded Confirmed metformin 750 mg tablet,extended 750 mg PO DAILY 03/13/21 03/19/23 release 24 hr blood sugar diagnostic (Blood 10/23/21 03/19/23 Glucose Test strips) blood-glucose meter 10/23/21 03/19/23 diaper,brief,adult,disposable 10/23/21 03/19/23 (Disposable Brief Jumbo X-Large) lancets (OneTouch UltraSoft 10/23/21 03/19/23 Lancets) nystatin 100,000 unit/gram topical 1 applic topical BID 10/23/21 03/19/23 powder oxygen and supplies 2 liters 10/23/21 03/19/23 umeclidinium 62.5 mcg/actuation 1 inh inhalation DAILY 02/05/22 03/19/23 blister powder for inhalation (Incruse Ellipta) budesonide-formoterol HFA 160 See Rx Instructions .Route .COMPLEX 04/12/22 03/19/23 mcg-4.5 mcg/actuation aerosol inhaler (Symbicort) ipratropium 0.5 mg-albuterol 3 mg 3 ml inhalation Q4H PRN wheezing 05/15/22 03/19/23 (2.5 mg base)/3 mL nebulization #540 mL soln melatonin 3 mg capsule 3 mg PO HS PRN 05/15/22 03/19/23 atorvastatin 20 mg tablet 20 mg PO HS 08/13/22 03/19/23 amlodipine 5 mg tablet 5 mg PO DAILY 12/23/22 03/19/23 cyanocobalamin (vitamin B-12) 5,000 mcg sublingual DAILY 12/23/22 03/19/23 5,000 mcg sublingual tablet (Vitamin B-12) divalproex 500 mg tablet,extended 500 mg PO HS 12/23/22 03/19/23 release 24 hr lisinopril 20 mg tablet 20 mg PO BID 12/23/22 03/19/23 prazosin 1 mg capsule 3 mg PO HS 12/23/22 03/19/23 azithromycin 250 mg tablet 250 mg PO DAILY #60 tabs 01/20/23 03/19/23 oxybutynin chloride 15 mg 30 mg (2 x 15 mg) PO QHS #180 tabs 01/20/23 03/19/23 tablet,extended release 24 hr albuterol sulfate 90 mcg/actuation 2 inh inhalation Q6H PRN 02/19/23 03/19/23 aerosol inhaler cholecalciferol (vitamin D3) 25 1,000 unit PO DAILY 02/19/23 03/19/23 mcg (1,000 unit) capsule (Vitamin D3) aripiprazole 20 mg tablet 20 mg PO DAILY 02/20/23 03/19/23 prednisone 20 mg tablet 40 mg (2 x 20 mg) PO DAILY #2 tabs 02/22/23 03/19/23 Previous Rx's Medication Instructions Recorded ipratropium 0.5 mg-albuterol 3 mg 3 ml inhalation Q4H PRN wheezing 05/15/22 (2.5 mg base)/3 mL nebulization #540 mL soln azithromycin 250 mg tablet 250 mg PO DAILY #60 tabs 01/20/23 oxybutynin chloride 15 mg 30 mg (2 x 15 mg) PO QHS #180 tabs 01/20/23 tablet,extended release 24 hr prednisone 20 mg tablet 40 mg (2 x 20 mg) PO DAILY #2 tabs 02/22/23 Allergies Allergy/AdvReac Type Severity Reaction Status Date / Time Penicillins Allergy Severe Anaphylaxis Unverified 02/19/23 14:36 dextromethorphan Allergy Mild Skin Rash Unverified 02/19/23 14:36 [From Dimetapp Cold-Congestion] diphenhydramine Allergy Mild Skin Rash Unverified 02/19/23 14:36 [From Dimetapp Cold-Congestion] guaifenesin Allergy Mild Skin Rash Unverified 02/19/23 14:36 [From Dimetapp Cold-Congestion] phenylephrine Allergy Mild Skin Rash Unverified 02/19/23 14:36 [From Dimetapp Cold-Congestion] pseudoephedrine Allergy Mild Skin Rash Unverified 02/19/23 14:36 [From Dimetapp Cold-Congestion] bupropion [From Wellbutrin] AdvReac Intermediate Other (See Unverified 02/19/23 14:36 Comment) Review of Systems All systems reviewed & are unremarkable except as noted in HPI and below PFSH All Active Problems (Updated 03/19/23 @ 20:15 by LISA Huggins) Pneumonia (Acute) COPD exacerbation (Acute) Acute hypoxemic respiratory failure (Acute) Acute on chronic respiratory failure with hypoxia and hypercapnia (Acute) Respiratory insufficiency (Acute) Acute and chronic respiratory failure (Acute) Acute hypoxemic respiratory failure (Acute) COPD (chronic obstructive pulmonary disease) (Chronic) Hallucinations (Acute) Suicide ideation (Acute) Headache (Acute) Seborrheic dermatitis (Acute) COVID-19 (Acute) Altered mental status (Acute) Septic shock (Acute) Right bundle branch block (Acute) Elevated troponin (Acute) Elevated LFTs (Acute) MICHAEL (acute kidney injury) (Acute) Hyperkalemia (Acute) Lactic acidosis (Acute) COVID (Acute) Respiratory failure with hypoxia and hypercapnia (Acute) Nicotine dependence, cigarettes, uncomplicated (Acute) Hypoxemia (Acute) Sleep apnea (Acute) Depression (Chronic) Tobacco dependence (Acute) Supplemental oxygen dependent (Acute) Obesity (Chronic) Incontinence of urine (Acute) HTN (hypertension) (Chronic) COPD (chronic obstructive pulmonary disease) (Chronic) Suicidal ideations (Acute) Hallucinations (Acute) Hypertension (Chronic) Medical History Palliative care patient Obesity (BMI 30-39.9) Hyperlipidemia Schizophrenia Family History Other Adopted Social History Smoking/Tobacco Use Status: Current every day Tobacco Type: cigarettes Smoking packs per day: 0 Smoking cigarettes per day: 0.0 Years smoked: 30 Smoking pack- years: 0.00 Tobacco: How many years used: 30 Smoking risk assessment performed?: Yes Alcohol Intake: former Drug use: Never Substance use type: does not use Caregiver/Support person: No Household members: none Housing: assisted living facility Number of Children: 0 Communication Needs: Hard of Hearing and Corrective Lenses Education Level: high school Do you need help understanding health information?: Always current occupation: disabled due to mental illness Pets and animals: No Current gender identity: male What is your relationship status?: never How often do you talk on the phone with friends or family?: never How often do you get together with friends or relatives?: never Panel score (0-1 are the most socially isolated patients): 0 What type of physical activity do you participate in: none and sedentary lifestyle Frequency: does not exercise Special mannie needs: No Seatbelt use: always Do you feel safe at home: No Do you feel safe in your relationship?: Yes Additional Social history: Pt states he is not taken care of at his [facility] Exam Narrative Exam Narrative: GENERAL APPEARANCE: Morbidly obese, non-toxic, awake and alert, atraumatic, no acute distress. SKIN: Warm, pink, dry, intact, without rashes/lesions/ulcerations. HEAD: Normocephalic, atraumatic, normal hair distribution for gender/age. EYES: Pupils PERRLA, EOMs intact without nystagmus, normal conjunctiva, no exudates on lids/lashes. ENT: Nares patent, no circumoral cyanosis, no facial swelling NECK: Supple, trachea midline, painless cervical ROM. LUNGS/CHEST: Lungs - diminished but moving air, no severe wheezing or rhonchi/rales at bases, labored respirations, increased A/P diameter, symmetrical expansion, no chest wall deformity HEART (CV/PV): Regular rate and rhythm without murmur, no peripheral edema, no JVD. ABDOMEN: Soft, non-distended, no guarding, no tenderness. MSK: Normal ROM, no swelling/deformity to bilateral UEs or LEs, moving all extremities without weakness, no cyanosis, spine midline without tenderness, normal curvature. NEURO: Mental Status AAOx4 - alert to person, place, time, events No facial droop, no forehead involvement. Motor: No focal weakness - strength 5/5 in bilateral UEs and LEs, proximal and distal, symmetric. Sensory: sensation intact to light touch globally. Gait normal: patient ambulated without ataxia into ED room. PSYCH: euthymic, cooperative, pleasant, appropriate speech Course Vital Signs Vital signs: Vital Signs Temperature 37.6 C H 03/19/23 16:39 Pulse 82 03/19/23 16:39 Respiratory Rate 24 03/19/23 16:39 Blood Pressure 125/80 03/19/23 16:39 Pulse Oximetry 85 L 03/19/23 16:39 Temperature 37.6 C H 03/19/23 16:39 Temperature Source Temporal Artery Scan 03/19/23 16:39 Pulse 82 03/19/23 16:39 Respiratory Rate 24 03/19/23 16:39 Blood Pressure 125/80 03/19/23 16:39 Blood Pressure Position Supine 03/19/23 16:39 Pulse Oximetry 85 L 03/19/23 16:39 Oxygen Delivery Method Nasal Cannula 03/19/23 16:39 Oxygen Flow Rate 3 03/19/23 16:39 Pain Level 0 03/19/23 16:39 Medical Decision Making This dictation utilizes [id number] dictation software and may contain unedited grammatical errors. 62 y/o M presents to ED today with a chief complaint of POV/ambulating, complaint of fall last night with minor headstrike to L parietal area, denies visual changes, vomiting, neck pain. Patient was noted to be hypoxic to 85% on arrival, on his baseline 3L by [place] for severe COPD, treated for pneumonia 2 weeks ago, question compliance with his at-home nightly BiPAP. Patients' medical history: Tobacco abuse, diabetes, obstructive sleep apnea, morbid obesity, schizophrenia, chronic respiratory failure, COPD, right bundle branch block, elevated LFTs, oxygen dependent, chronic suicidality. Family and social history: [ ]. Pertinent exam findings / vital signs include hypoxic, moving air, no overt wheezing, no rales at bases, benign abdomen, neuro intact. Differential / pathologies of concern include COPD exacerbation, pneumonia, acute on chronic hypoxemic respiratory failure, intracranial hemorrhage, concussion syndrome. Diagnostic studies of: -CBC, CMP, lactate, lipase, VBG, Procalcitonin, Trop I, BNP, CXR, CT head without contrast, CRP/ESR, flu/COVID/RSV PCR, blood cultures, mental health consult. -UDS, tylenol level, salicylates, ETOH level -no leukocytosis -CMP shows no major electrolyte abnormalities -VBG shows PCO2 of 76 -BUN 20 -SCr WNL -BNP mild elev 484 -Trop I negative -UA shows no UTI -APAP level neg -salicylates neg -UDS benign -ETOH negative -Covid/Flu/RSV neg -CT head shows no ICH -CXR shows opacity R base Interventions of: -9mL DuoNeb and 125mg Solu-medrol on arrival, placed on O2 at 8L, satting around 90-91% -Placed on BiPAP with CO2 result, had further de-sat to mid-80s but mentating and moving air, upped FiO2 to 40% 12/5 peep, sats 91%. ED Course/Assessment/Plan: Morbidly obese patient with complex history of severe COPD oxygen dependent p resents 2 weeks after treatment of pneumonia hypoxic in triage to 85% on his baseline 3 L O2 by [place], he is complaining of a fall last night in the bathroom where he did not suffer loss of consciousness and hit his left rastafari, CT head is negative, I did senior counsel him that we should probably work him up for unresolved pneumonia, chest x-ray shows significant opacity in the right base, his pCO2 is quite high and he was placed on BiPAP he continued to desaturate until we achieve stability by upping FiO2 to 40% and putting his pressures on 12/5. He will receive ceftriaxone and azithromycin, he does have an anaphylactic reaction to penicillin but has not had any documented reaction to cephalosporins. He still moving air and has not altered whatsoever and is protecting his own airway, he does have morbid obesity I think the patient needs to be admitted for hypoxemic respiratory failure secondary to pneumonia I did approach the hospitalist team in regards to this admission. Hospitalist Dr. De La O accepts to [facility] ICU for admission. He will likely need evaluation from [facility] once medically cleared for his chronic suicidality, no 1:1 required in ED as patient is on BiPAP and does not currently pose a safety risk to staff or self. Disposition of Acute Hypoxemic Respiratory Failure, COPD Exacerbation, Pneumonia. Patient verbalized understanding of the plan and return to ED criteria and engaged in shared decision making. Medical Records Medical records reviewed: Yes I reviewed the patient's medical records. Imaging Data Radiologic Study: Imaging: CT Scan Radiologist's impression: EXAM: CT HEAD WO CLINICAL HISTORY: fall last night, L rastafari pain. TECHNIQUE: Imaging Protocol: Axial computed tomography images with coronal and sagittal reformatted images were created and reviewed COMPARISON: CT CT HEAD WO from 12/23/2022 FINDINGS: Ventricles and Extra axial spaces: Normal in size and morphology for the patient's age. Hemorrhage: None. Cerebral parenchyma: No mass effect. No evidence of an acute infarct. Midline shift: None. Brainstem/Cerebellum: Normal. Calvarium: Normal. Visualized Paranasal sinuses/Mastoids: Clear. Soft Tissues: Unremarkable. IMPRESSION: 1. No acute intracranial process. 2. Findings were discussed with the emergency department at 6:43 p.m. on 03/19/2023. Radiologic Study #2: Imaging: X-Ray My impression: R lower lobe opacity still present from prior XR 02/19 Radiologist's impression: Exam: XR Chest Exam date and time: 03/19/2023 7:57 PM Age: 62 years old Clinical indication: Other: Respiratory failure TECHNIQUE: Imaging protocol: Radiologic exam of the chest. Views: 1 view. COMPARISON: CR XR PORTABLE CHEST AP 02/19/2023 2:31 PM FINDINGS: Lungs: Pulmonary vasculature is mildly prominent, similar previous. Mild focal parenchymal opacity in the right lung base appears similar to previous. Mid to upper lungs appear clear. Pleural spaces: Unremarkable. No pleural effusion. No pneumothorax. Heart/Mediastinum: Cardiac silhouette appears mildly enlarged. Bones/joints: Moderate degenerative changes of the spine IMPRESSION: No significant change from previous. Borderline congestive changes. Dictated and Authenticated by: Erik Bess MD. Ordering:KAYLAN Leon MD Lab Data Lab results reviewed: Yes I reviewed the patient's lab results. Labs: 03/19/23 17:15 Blood Blood Culture - Pending 03/19/23 17:26 Blood Blood Culture - Pending Laboratory Tests Range/Units 03/19/23 03/19/23 03/19/23 17:08 17:26 18:25 WBC (4.4-10.8) 10^3/uL 7.38 RBC (4.36-5.78) 10^6/uL 6.28 H Hgb (13.5-17.5) g/dL 17.8 H Hct (40.0-50.0) % 57.7 H* MCV (80-95) fL 92 MCH (27.0-33.0) pg 28.3 MCHC (32.0-36.0) % 30.8 L RDW (11.8-14.1) % 17.3 H Plt Count (130-400) 10^3/uL 291 MPV (8.0-11.0) fL 9.6 Immature Gran % 0.3 Neutrophils % 62.6 Lymphocytes % 23.4 Monocytes % 10.7 Eosinophils % 2.7 Basophils % 0.3 Nucleated RBC % (0.0-0.3) % 0.0 Absolute Neutrophils (1.2-6.7) 10^3/uL 4.62 Absolute Lymphocytes (1.2-3.4) 10^3/uL 1.73 Absolute Monocytes (0.1-0.8) 10^3/uL 0.79 Absolute Eosinophils (0.0-0.7) 10^3/uL 0.20 Absolute Basophils (0.0-0.2) 10^3/uL 0.02 ESR (0-20) mm/hr 9 VBG pH (7.31-7.41) 7.34 VBG pCO2 (41-51) mmHg 76 H* VBG pO2 mmHg 44 VBG HCO3 (23-28) mmol/L 41 H VBG Total CO2 (24-29) mmol/L 35 H VBG O2 Saturation % 82 VBG Base Excess (-2-3) mmol/L 15 H VBG Lactate (0.6-1.4) mmol/L 1.4 Sodium (136-145) mmol/L 143 Potassium (3.5-5.1) mmol/L 4.7 Chloride (98-107) mmol/L 101 Carbon Dioxide (21.0-32.0) mmol/L 40.1 H Anion Gap (3-11) mmol/L 1.9 L BUN (7-18) mg/dL 20 H Creatinine (0.70-1.30) mg/dL 0.8 Est GFR (CKD-EPI 2020) (mL/min/1.73m2) 100.69 Glucose (74-106) mg/dL 91 Calcium (8.5-10.1) mg/dL 9.5 Magnesium (1.8-2.4) mg/dL 1.9 Total Bilirubin (0.2-1.0) mg/dL 0.3 AST (15-37) U/L 12 L ALT (16-63) U/L 19 Alkaline Phosphatase (46-116) U/L 99 Troponin I (<or=60) ng/L < 50 C-Reactive Protein (0.0-0.3) mg/dL 0.08 NT-Pro-B Natriuret Pep (<300) pg/mL 484 H Total Protein (6.4-8.2) g/dL 7.0 Albumin (3.4-5.0) g/dL 3.5 Lipase (16-77) U/L 19 Procalcitonin ng/mL < 0.1 Urine Color (Yellow) Yellow Urine Clarity (Clear) Clear Urine pH (5-8) 5.5 Ur Specific Galva (1.005-1.025) >= 1.030 H Urine Protein (Negative) mg/dL 30 H Urine Ketones (Negative) mg/dL Trace H Urine Blood (Negative) Negative Urine Nitrite (Negative) Negative Urine Bilirubin (Negative) Negative Urine Urobilinogen (Up to 0.2) mg/dL 0.2 Ur Leukocyte Esterase (Negative) Negative Urine RBC (0-2) HPF 0-2 Urine WBC (0-5) HPF 0-2 Ur Epithelial Cells (Negative) HPF Rare Urine Crystals (Negative) HPF Negative Urine Bacteria (Negative) HPF Negative Urine Casts (Negative) LPF 0-2 Hyaline Urine Mucus (Negative) Trace Ur Culture Indicated? No Urine Glucose (Negative) mg/dL Negative Salicylates (<2.8) mg/dL < 2.8 Urine Opiates Screen (Negative) Negative Urine Methadone Screen (Negative) Negative Acetaminophen (10-30) ug/mL < 2 Ur Barbiturates Screen (Negative) Negative Ur Tricyclics Screen (Negative) Negative Ur Amphetamines Screen (Negative) Negative U Benzodiazepines Scrn (Negative) Negative Urine Cocaine Screen (Negative) Negative Ur THC Screen (Negative) Negative Ethyl Alcohol (<10) mg/dL < 3.0 COVID-19 Source Nasopharynx SARS-CoV-2 (PCR) (Negative) Negative Influenza Type A (PCR) (Negative) Negative Influenza Type B (PCR) (Negative) Negative RSV (PCR) (Negative) Negative Quality:SDOH Health Related Social Needs: No Data to Display Discharge Plan Disposition Patient Disposition: Admit to [facility] Condition: Fair Discharge Details Clinical Impression: Acute hypoxemic respiratory failure, COPD exacerbation, Pneumonia Admit Date/Time: 03/19/23 20:13 Admit Provider: Barrington De La O Attending Provider: Barrington De La O Primary Care Provider: MIMI PEREZ ED Provider: Edward Ferguson
--- NOTE | 2023-03-19 17:00 | DI.CT_ITS ---
Exam(s) CT HEAD WO EXAM: CT HEAD WO CLINICAL HISTORY: fall last night, L rastafari pain. TECHNIQUE: Imaging Protocol: Axial computed tomography images with coronal and sagittal reformatted images were created and reviewed COMPARISON: CT CT HEAD WO from 12/23/2022 FINDINGS: Ventricles and Extra axial spaces: Normal in size and morphology for the patient's age. Hemorrhage: None. Cerebral parenchyma: No mass effect. No evidence of an acute infarct. Midline shift: None. Brainstem/Cerebellum: Normal. Calvarium: Normal. Visualized Paranasal sinuses/Mastoids: Clear. Soft Tissues: Unremarkable. IMPRESSION: 1. No acute intracranial process. 2. Findings were discussed with the emergency department at 6:43 p.m. on 03/19/2023. RADIATION DOSE DELIVERED: Total DLP DATA REPOSITORY: All CT scans at this facility are submitted to the National Radiology Data Registry (NRDR) Dose Index Registry (DIR) with the [employer] ([employer]). RADIATION OPTIMIZATION: All CT scans at this facility use at least one of these dose optimization te chniques: automated exposure control; mA and/or kV adjustment per patient size (includes targeted exa ms where dose is matched to clinical indication); or iterative reconstruction.
[2023-03-19 17:19] LABS: BE (Venous) 15 mmol/L (-2-3); HCO3 (Venous) 41 mmol/L (23-28); O2 Sat (Venous) 82 %; TCO2 (Venous) 35 mmol/L (24-29); pH (Venous) 7.34 (7.31-7.41); pO2 (Venous) 44 mmHg
[2023-03-19] MEDS: Albuterol/Ipratropium 3 ML UPD VIAL 9 ML UPD (17:19)
[2023-03-19] MEDS: methylPREDNISolone SUCC 125 MG VIAL IVP (17:19)
[2023-03-19] MEDS: Acetaminophen 500 MG TAB 1000 MG PO (17:19)
[2023-03-19] MEDS: Ibuprofen 400 MG TAB PO (17:19)
[2023-03-19 17:21] LABS: Abs Immature Grans 0.02 10^3/uL (0.0-0.06); Absolute Basophil Count 0.02 10^3/uL (0.0-0.2); Absolute Lymphocyte Count 1.73 10^3/uL (1.2-3.4); Absolute Monocyte Count 0.79 10^3/uL (0.1-0.8); Absolute Neutrophil Count 4.62 10^3/uL (1.2-6.7); Basophils % 0.3; Eosinophils % 2.7; HGB 17.8 g/dL (13.5-17.5); Immature Grans % 0.3; Lymphocytes % 23.4; MCH 28.3 pg (27.0-33.0); MCHC 30.8 % (32.0-36.0); MCV 92 fL (80-95); MPV 9.6 fL (8.0-11.0); Monocytes % 10.7; Neutrophils % 62.6; Platelet Count 291 10^3/uL (130-400); RBC 6.28 10^6/uL (4.36-5.78); RDW 17.3 % (11.8-14.1); RDW-SD 55.8 fL; WBC 7.38 10^3/uL (4.4-10.8)
[2023-03-19 17:23] LABS: ESR 9 mm/hr (0-20); pCO2 (Venous) 76 mmHg (41-51)
[2023-03-19 17:24] LABS: Lactate 1.4 mmol/L (0.6-1.4)
[2023-03-19 17:25] LABS: HCT 57.7 % (40.0-50.0)
[2023-03-19] MEDS: Normal Saline 1,000 ML 150 ML IV ×2 (17:40→22:48)
[2023-03-19 17:46] LABS: ALT 19 U/L (16-63); AST 12 U/L (15-37); Albumin 3.5 g/dL (3.4-5.0); Alkaline Phosphatase 99 U/L (46-116); Anion Gap 1.9 mmol/L (3-11); BUN 20 mg/dL (7-18); Bilirubin, Total 0.3 mg/dL (0.2-1.0); C-Reactive Protein 0.08 mg/dL (0.0-0.3); CO2 40.1 mmol/L (21.0-32.0); CREATININE 0.8 mg/dL (0.70-1.30); Calcium 9.5 mg/dL (8.5-10.1); Chloride 101 mmol/L (98-107); Estimated GFR 100.69 (mL/min/1.73m2); Glucose 91 mg/dL (74-106); Lipase 19 U/L (16-77); Magnesium 1.9 mg/dL (1.8-2.4); NT-proBNP 484 pg/mL (<300); Potassium 4.7 mmol/L (3.5-5.1); Sodium 143 mmol/L (136-145); Troponin I < 50 ng/L (<or=60)
[2023-03-19 17:55] LABS: Salicylate < 2.8 mg/dL (<2.8)
[2023-03-19 17:56] LABS: ETHANOL BLOOD < 3.0 mg/dL (<10)
[2023-03-19 17:56] LABS: Acetaminophen < 2 ug/mL (10-30)
[2023-03-19 18:02] LABS: Procalcitonin < 0.1 ng/mL
[2023-03-19 18:37] LABS: Bilirubin Negative (Negative); Blood Negative (Negative); Clarity Clear (Clear); Glucose Negative (Negative); Ketones Trace mg/dL (Negative); Leukocyte Esterase Negative (Negative); Nitrite Negative (Negative); Specific Gravity >= 1.030 (1.005-1.025); Urobilinogen 0.2 mg/dL (Up to 0.2); pH 5.5 (5-8)
[2023-03-19 18:45] LABS: Bacteria Negative HPF (Negative); C & S Indicated? No; Casts 0-2 Hyaline LPF (Negative); Crystals Negative HPF (Negative); Epithelial Cells Rare HPF (Negative); Mucus Trace (Negative); RBC 0-2 HPF (0-2); WBC 0-2 HPF (0-5)
[2023-03-19 18:49] LABS: *AMPHETAMINES SCREEN URINE Negative (Negative); *BARBITURATES SCREEN URINE Negative (Negative); *BENZODIAZEPINES SCREEN URINE Negative (Negative); Cannabinoids THC Negative (Negative); Cocaine Screen,Urine Negative (Negative); METHADONE URINE SCREEN Negative (Negative); OPIATES URINE SCREEN Negative (Negative)
[2023-03-19 18:50] LABS: Tricyclic Antidepressants Negative (Negative)
[2023-03-19 19:11] LABS: COVID-19 PCR Negative (Negative); Influenza A PCR Negative (Negative); Influenza B PCR Negative (Negative); RSV PCR Negative (Negative)
[2023-03-19 19:13] LABS: Source Nasopharynx
--- NOTE | 2023-03-19 19:45 | DI.RAD_ITS ---
Exam(s) XR PORTABLE CHEST AP EXAM: XR PORTABLE CHEST AP CLINICAL HISTORY: respiratory failure TECHNIQUE: 2D digital imaging was performed of the chest. One image was obtained. An AP view was ob tained. COMPARISON: CR XR PORTABLE CHEST AP from 02/19/2023 FINDINGS: MEDIASTINUM: Normal. HEART: Mild cardiomegaly. PULMONARY VASCULATURE: Pulmonary vasculature is prominent but unchanged. LUNGS: There is a small infiltrate seen in the medial aspect of the right lower lobe. PLEURAL SPACE: No pleural effusion or pneumothorax. BONE:Within normal limits for the patient's age. OTHER FINDINGS:Normal. IMPRESSION: 1. Stable mild cardiomegaly and pulmonary venous congestion. 2. Small infiltrate in the medial aspect of the right lower lobe. DATA REPOSITORY: RADIATION DOSE DELIVERED:
[2023-03-19] MEDS: AZITHROMYCIN 500 MG in Normal Saline 250 ML 250 MG IVPB (19:57)
[2023-03-19] MEDS: Water,Injection,Sterile 10 ML VIAL (20:01)
[2023-03-19] MEDS: cefTRIAXone 2 GM/50 ML BAG IVPB (20:23)
--- NOTE | 2023-03-19 20:36 | DI.VRAD_ITS ---
PROCEDURE INFORMATION: Exam: XR Chest Exam date and time: 03/19/2023 7:57 PM Age: 62 years old Clinical indication: Other: Respiratory failure TECHNIQUE: Imaging protocol: Radiologic exam of the chest. Views: 1 view. COMPARISON: CR XR PORTABLE CHEST AP 02/19/2023 2:31 PM FINDINGS: Lungs: Pulmonary vasculature is mildly prominent, similar previous. Mild focal parenchymal opacity in the right lung base appears similar to previous. Mid to upper lungs appear clear. Pleural spaces: Unremarkable. No pleural effusion. No pneumothorax. Heart/Mediastinum: Cardiac silhouette appears mildly enlarged. Bones/joints: Moderate degenerative changes of the spine IMPRESSION: No significant change from previous. Borderline congestive changes. Dictated and Authenticated by: Erik Bess MD. Ordering:KAYLAN Leon MD
--- NOTE | 2023-03-19 21:02 | W.PC.ACHO ---
Registration Status: REG ER Primary Language: Preferred Language: ED Information & Data Chief Complaint Fall/Non TraumaCriteria 03/19/23 16:56 Chief Complaint Fall/Non TraumaCriteria 03/19/23 16:53 Other Complaint SOB 03/19/23 16:39 Triage Note Pt states he fell last night 03/19/23 16:39 and struck the left side of his face on the towel bar in the bathroom. He arrives today requesting eval of that injury but also was noted to have low oxygen sat 85% on 3L portable NC. He states he feels SOB. Was treated for pneumonia 2 weeks ago. Additionally reported suicidal ideation without plan. Medical / Surgical History (Last Reviewed 02/19/23 @ 19:24 by Sukhdeep Collins MD) Tobacco abuse Bipolar 1 disorder Diabetes Obstructive sleep apnea Palliative care patient Obesity (BMI 30-39.9) Hyperlipidemia Schizophrenia Most Recent Vital Signs Temperature 37.6 C H 03/19/23 16:39 Temperature Source Temporal Artery Scan 03/19/23 16:39 Pulse 67 03/19/23 20:01 Pulse 74 03/19/23 17:30 Respiratory Rate 14 03/19/23 20:08 Respiratory Effort Short of Breath 03/19/23 16:56 Blood Pressure 93/72 L 03/19/23 20:01 Blood Pressure Mean 80 03/19/23 18:45 Blood Pressure Position Supine 03/19/23 16:39 Pulse Oximetry 84 L 03/19/23 20:05 Oxygen Delivery Method Nasal Cannula 03/19/23 17:01 Oxygen Flow Rate 5 03/19/23 17:01 Fraction of Inspired Oxygen (FIO2) 40 03/19/23 20:07 Pain Level 0 03/19/23 16:39 Allergies Penicillins Allergy (Severe, Unverified 02/19/23 14:36) Anaphylaxis Pt reports dextromethorphan [From Dimetapp Cold-Congestion] Allergy (Mild, Unverified 02/19/23 14:36) Skin Rash diphenhydramine [From Dimetapp Cold-Congestion] Allergy (Mild, Unverified 02/19/23 14:36) Skin Rash guaifenesin [From Dimetapp Cold-Congestion] Allergy (Mild, Unverified 02/19/23 14:36) Skin Rash phenylephrine [From Dimetapp Cold-Congestion] Allergy (Mild, Unverified 02/19/23 14:36) Skin Rash pseudoephedrine [From Dimetapp Cold-Congestion] Allergy (Mild, Unverified 02/19/23 14:36) Skin Rash bupropion [From Wellbutrin] Adverse Reaction (Intermediate, Unverified 02/19/23 14:36) Other (See Comment) Patient reports abnormal behavior Active Medications Generic Name Dose Route Start Last Admin Trade Name Hiteshq PRN Reason Stop Dose Admin Sodium Chloride 1,000 mls @ 150 mls/hr 03/19/23 17:15 03/19/23 17:40 Saline 1000ml Bag IV 150 mls/hr INFUSION GRETEL Administration IV IV Catheter Type [Right Saline Lock Forearm] IV Catheter Type [Right Peripheral IV Antecubital] IV Catheter Gauge [Right 20 Forearm] IV Catheter Gauge [Right 18 Antecubital] Diagnostics 03/19/23 03/19/23 03/19/23 Range/Units 18:25 17:26 17:08 WBC 7.38 (4.4-10.8) 10^3/uL RBC 6.28 H (4.36-5.78) 10^6/uL Hgb 17.8 H (13.5-17.5) g/dL Hct 57.7 H* (40.0-50.0) % MCV 92 (80-95) fL MCH 28.3 (27.0-33.0) pg MCHC 30.8 L (32.0-36.0) % RDW 17.3 H (11.8-14.1) % Plt Count 291 (130-400) 10^3/uL MPV 9.6 (8.0-11.0) fL Immature Gran % 0.3 Neutrophils % 62.6 Lymphocytes % 23.4 Monocytes % 10.7 Eosinophils % 2.7 Basophils % 0.3 Nucleated RBC % 0.0 (0.0-0.3) % Absolute Neutrophils 4.62 (1.2-6.7) 10^3/uL Absolute Lymphocytes 1.73 (1.2-3.4) 10^3/uL Absolute Monocytes 0.79 (0.1-0.8) 10^3/uL Absolute Eosinophils 0.20 (0.0-0.7) 10^3/uL Absolute Basophils 0.02 (0.0-0.2) 10^3/uL ESR 9 (0-20) mm/hr VBG pH 7.34 (7.31-7.41) VBG pCO2 76 H* (41-51) mmHg VBG pO2 44 mmHg VBG HCO3 41 H (23-28) mmol/L VBG Total CO2 35 H (24-29) mmol/L VBG O2 Saturation 82 % VBG Base Excess 15 H (-2-3) mmol/L VBG Lactate 1.4 (0.6-1.4) mmol/L Sodium 143 (136-145) mmol/L Potassium 4.7 (3.5-5.1) mmol/L Chloride 101 (98-107) mmol/L Carbon Dioxide 40.1 H (21.0-32.0) mmol/L Anion Gap 1.9 L (3-11) mmol/L BUN 20 H (7-18) mg/dL Creatinine 0.8 (0.70-1.30) mg/dL Est GFR (CKD-EPI 2020) 100.69 (mL/min/1.73m2) Glucose 91 (74-106) mg/dL Calcium 9.5 (8.5-10.1) mg/dL Magnesium 1.9 (1.8-2.4) mg/dL Total Bilirubin 0.3 (0.2-1.0) mg/dL AST 12 L (15-37) U/L ALT 19 (16-63) U/L Alkaline Phosphatase 99 (46-116) U/L Troponin I < 50 (<or=60) ng/L C-Reactive Protein 0.08 (0.0-0.3) mg/dL NT-Pro-B Natriuret Pep 484 H (<300) pg/mL Total Protein 7.0 (6.4-8.2) g/dL Albumin 3.5 (3.4-5.0) g/dL Lipase 19 (16-77) U/L Procalcitonin < 0.1 ng/mL Urine Color Yellow (Yellow) Urine Clarity Clear (Clear) Urine pH 5.5 (5-8) Ur Specific [place] >= 1.030 H (1.005-1.025) Urine Protein 30 H (Negative) mg/dL Urine Ketones Trace H (Negative) mg/dL Urine Blood Negative (Negative) Urine Nitrite Negative (Negative) Urine Bilirubin Negative (Negative) Urine Urobilinogen 0.2 (Up to 0.2) mg/dL Ur Leukocyte Esterase Negative (Negative) Urine RBC 0-2 (0-2) HPF Urine WBC 0-2 (0-5) HPF Ur Epithelial Cells Rare (Negative) HPF Urine Crystals Negative (Negative) HPF Urine Bacteria Negative (Negative) HPF Urine Casts 0-2 Hyaline (Negative) LPF Urine Mucus Trace (Negative) Ur Culture Indicated? No Urine Glucose Negative (Negative) mg/dL Salicylates < 2.8 (<2.8) mg/dL Urine Opiates Screen Negative (Negative) Urine Methadone Screen Negative (Negative) Acetaminophen < 2 (10-30) ug/mL Ur Barbiturates Screen Negative (Negative) Ur Tricyclics Screen Negative (Negative) Ur Amphetamines Screen Negative (Negative) U Benzodiazepines Scrn Negative (Negative) Urine Cocaine Screen Negative (Negative) Ur THC Screen Negative (Negative) Ethyl Alcohol < 3.0 (<10) mg/dL COVID-19 Source Nasopharynx SARS-CoV-2 (PCR) Negative (Negative) Influenza Type A (PCR) Negative (Negative) Influenza Type B (PCR) Negative (Negative) RSV (PCR) Negative (Negative) 03/19/23 17:15 Blood Culture - Pending Blood 03/19/23 17:26 Blood Culture - Pending Blood Intake and Output - 24 Hour Total 03/19/23 16:30 thru 03/19/23 16:39 Weight 99.337 kg Falls Risk Assessment History of Falls No History 03/19/23 16:57 Contributing Factors Unstable 03/19/23 16:57 Ambulatory Aids Independent 03/19/23 16:57 Tubes/Lines With any additional score 03/19/23 16:57 Fall Total Score 23 03/19/23 16:57 Level of Risk Standard/Low Risk 03/19/23 16:57 Problems (Last Reviewed 02/19/23 @ 19:24 by Sukhdeep Collins MD) Pneumonia (Acute) COPD exacerbation (Acute) Acute hypoxemic respiratory failure (Acute) v v v v v v v v v Sending and/or Receiving Nurses: Please use comment section below to note any information pertinent to the patient hand-off not included above. Information / Comments: Pneumonia early february diagnosed, Hyper K, SOB, Fall at home struck L side of face. 85% on 3 l on presenting to ER Normally on 2-3 litres home 02 with sats in low 90s. Suicidal ideation. Wants to strangle self with CPAP tubing. Refused to talk to mental health when they came. Fairly compliant with BiPAP. Neuros intact. flat affect. compliant with BiPAP. Head CT negative CXR RLL pneumonia L side rhochorous R no air movement BIPAP 40% 12/5 pulse ox on ear probe. sinus R BBB, troponins negative BPs systolic high 80s but MAPs above 65 RF #20 RAC #18 WBC negative VBG pC02 76 Lactate 1.4 BNP 484 skin - no open areas output ? not measured Report received from: Nu Moura RN
--- NOTE | 2023-03-19 21:45 | HPE_ITS ---
Date of service: 03/19/23 Time of Service: 21:45 Assessment and Plan Assessment and plan (1) COPD exacerbation: Status: Acute Assessment and plan: Longstanding underlying COPD. He presents with hypercapnic respiratory failure with the pCO2 of 76. He would benefit from noninvasive respiratory support which he apparently has in the home setting but they have not been able to locate it for the past month. Will continue on BiPAP therapy 02/18 with 40% FiO2. He appears to be stabilized on this. Will use this overnight and recheck electrolytes in the a.m. I suspect he will feel better as some of the CO2 is blown off. As needed updrafts both DuoNebs and albuterol. He got Solu-Medrol in the ED but is not all at wheezy right now so we will continue with just p.o. prednisone at 40 mg daily. Hopefully can wean that after a few days. (2) Acute on chronic respiratory failure with hypoxia and hypercapnia: Status: Acute Assessment and plan: Hypercapnia secondary to not using his home CPAP/BiPAP device. His mental status appears to be stable although he did have a paucity of speech. Continue on BiPAP overnight and reassess. (3) COPD (chronic obstructive pulmonary disease): Status: Chronic Assessment and plan: History of longstanding tobacco abuse. On controller meds. Continue as ordered. Qualifiers: COPD type: COPD with acute exacerbation Qualified Code(s): J44.1 - Chronic obstructive pulmonary disease with (acute) exacerbation (4) Suicide ideation: Status: Acute Assessment and plan: History of depression and suicidality. Will ask mental health to see him tomorrow once stable. Does not appear to be actively suicidal here in the hospital. (5) Seborrheic dermatitis: Status: Acute Assessment and plan: Mild seborrheic dermatitis in his center of his chest. (6) Sleep apnea: Status: Acute Assessment and plan: Obstructive sleep apnea being treated with home CPAP/BiPAP device which has not been located recently. Will check with his home situation in the a.m. to be sure he has this device prior to discharge. (7) Depression: Status: Chronic Assessment and plan: Longstanding depression. He is on Depakote and ariprazole. Continue present meds. Mental health consult. (8) Supplemental oxygen dependent: Status: Acute Assessment and plan: Longstanding oxygen dependency. Came in satting 85% on 3 L. He is showing a tendency to retain CO2. Will likely need noninvasive respiratory support ongoing. History of Present Illness History of Present Illness Chief Complaint: COPD exacerbation/hypercapnic respiratory failure/suicidal ideation Narrative: This is a 62-year-old male that lives at [facility]. He presents to the emergency room stating he fell yesterday striking the left side of his head. He says he has suicidal thoughts. In the emergency room he was found to be satting 85% on 3 L. He was feeling short of breath. Workup in the emergency room showed his bicarb was abnormally high. He was placed on BiPAP 12/5 satting 92%. A portable chest x-ray showed no effusion or significant infiltrate. He was empirically started on ceftriaxone and azithromycin and given Solu-Medrol. He is admitted to the ICU for continued BiPAP therapy. Review of Systems Narrative: Patient complaining of a slight sore spot on the left side of his head from a fall he suffered yesterday. He says he feels somewhat short of breath but better now that I am on the machine. He notes that he has not had his CPAP/BiPAP at the [facility] for the last month. They are trying to locate it. He has not had any chest pain. He last ate at noon time and is feeling hungry he does not admit to any significant abdominal pain. Normal bowel and bladder function. He ambulates normally independently. Does not describe any new neurologic symptoms. He states that he has suicidal ideation at times but not at this time because I am here. PFSH All Active Problems (Updated 03/19/23 @ 21:51 by Barrington De La O MD) COPD exacerbation (Acute) Acute on chronic respiratory failure with hypoxia and hypercapnia (Acute) COPD (chronic obstructive pulmonary disease) (Chronic) Suicide ideation (Acute) Seborrheic dermatitis (Acute) Sleep apnea (Acute) Depression (Chronic) Supplemental oxygen dependent (Acute) Medical History (Updated 03/19/23 @ 21:51 by Barrington De La O MD) Pneumonia Acute hypoxemic respiratory failure Respiratory insufficiency Hallucinations Headache COVID-19 Altered mental status Septic shock Right bundle branch block Elevated troponin Elevated LFTs MICHAEL (acute kidney injury) Hyperkalemia Lactic acidosis COVID Respiratory failure with hypoxia and hypercapnia Nicotine dependence, cigarettes, uncomplicated Hypoxemia Tobacco dependence Obesity Incontinence of urine HTN (hypertension) Hypertension Tobacco abuse Bipolar 1 disorder Diabetes Obstructive sleep apnea Palliative care patient Obesity (BMI 30-39.9) Hyperlipidemia Schizophrenia Family History Other Adopted Social History Smoking/Tobacco Use Status: Current every day Tobacco Type: cigarettes Smoking packs per day: 0 Smoking cigarettes per day: 0.0 Years smoked: 30 Smoking pack- years: 0.00 Tobacco: How many years used: 30 Smoking risk assessment performed?: Yes Alcohol Intake: former Drug use: Never Substance use type: does not use Caregiver/Support person: No Household members: none Housing: assisted living facility Number of Children: 0 Communication Needs: Hard of Hearing and Corrective Lenses Education Level: high school Do you need help understanding health information?: Always current occupation: disabled due to mental illness Pets and animals: No Current gender identity: male What is your relationship status?: never How often do you talk on the phone with friends or family?: never How often do you get together with friends or relatives?: never Panel score (0-1 are the most socially isolated patients): 0 What type of physical activity do you participate in: none and sedentary lifestyle Frequency: does not exercise Special mannie needs: No Seatbelt use: always Do you feel safe at home: No Do you feel safe in your relationship?: Yes Additional Social history: Pt states he is not taken care of at his [facility] Meds Allergies and Home Medications Allergies Allergy/AdvReac Type Severity Reaction Status Date / Time Penicillins Allergy Severe Anaphylaxis Unverified 02/19/23 14:36 dextromethorphan Allergy Mild Skin Rash Unverified 02/19/23 14:36 [From Dimetapp Cold-Congestion] diphenhydramine Allergy Mild Skin Rash Unverified 02/19/23 14:36 [From Dimetapp Cold-Congestion] guaifenesin Allergy Mild Skin Rash Unverified 02/19/23 14:36 [From Dimetapp Cold-Congestion] phenylephrine Allergy Mild Skin Rash Unverified 02/19/23 14:36 [From Dimetapp Cold-Congestion] pseudoephedrine Allergy Mild Skin Rash Unverified 02/19/23 14:36 [From Dimetapp Cold-Congestion] bupropion [From Wellbutrin] AdvReac Intermediate Other (See Unverified 02/19/23 14:36 Comment) Home Medications Medication Instructions Recorded Confirmed Type metformin 750 mg tablet,extended 750 mg PO DAILY 03/13/21 03/19/23 History release 24 hr blood sugar diagnostic (Blood 10/23/21 03/19/23 History Glucose Test strips) blood-glucose meter 10/23/21 03/19/23 History diaper,brief,adult,disposable 10/23/21 03/19/23 History (Disposable Brief Jumbo X-Large) lancets (OneTouch UltraSoft 10/23/21 03/19/23 History Lancets) nystatin 100,000 unit/gram topical 1 applic topical BID 10/23/21 03/19/23 History powder oxygen and supplies 2 liters 10/23/21 03/19/23 History umeclidinium 62.5 mcg/actuation 1 inh inhalation DAILY 02/05/22 03/19/23 History blister powder for inhalation (Incruse Ellipta) budesonide-formoterol HFA 160 See Rx Instructions .Route .COMPLEX 04/12/22 03/19/23 History mcg-4.5 mcg/actuation aerosol inhaler (Symbicort) ipratropium 0.5 mg-albuterol 3 mg 3 ml inhalation Q4H PRN wheezing 05/15/22 03/19/23 Rx (2.5 mg base)/3 mL nebulization #540 mL soln melatonin 3 mg capsule 3 mg PO HS PRN 05/15/22 03/19/23 History atorvastatin 20 mg tablet 20 mg PO HS 08/13/22 03/19/23 History amlodipine 5 mg tablet 5 mg PO DAILY 12/23/22 03/19/23 History cyanocobalamin (vitamin B-12) 5,000 mcg sublingual DAILY 12/23/22 03/19/23 History 5,000 mcg sublingual tablet (Vitamin B-12) divalproex 500 mg tablet,extended 500 mg PO HS 12/23/22 03/19/23 History release 24 hr lisinopril 20 mg tablet 20 mg PO BID 12/23/22 03/19/23 History prazosin 1 mg capsule 3 mg PO HS 12/23/22 03/19/23 History azithromycin 250 mg tablet 250 mg PO DAILY #60 tabs 01/20/23 03/19/23 Rx oxybutynin chloride 15 mg 30 mg (2 x 15 mg) PO QHS #180 tabs 01/20/23 03/19/23 Rx tablet,extended release 24 hr albuterol sulfate 90 mcg/actuation 2 inh inhalation Q6H PRN 02/19/23 03/19/23 History aerosol inhaler cholecalciferol (vitamin D3) 25 1,000 unit PO DAILY 02/19/23 03/19/23 History mcg (1,000 unit) capsule (Vitamin D3) aripiprazole 20 mg tablet 20 mg PO DAILY 02/20/23 03/19/23 History prednisone 20 mg tablet 40 mg (2 x 20 mg) PO DAILY #2 tabs 02/22/23 03/19/23 Rx Exam Narrative Exam Narrative: On exam he does not appear in any significant distress. He does not make good eye contact. He has the BiPAP mask in place and it appears to fit well. His respiratory rate is normal and not labored. His lung sounds posteriorly show good air movement bilaterally. There is not significant wheezing. Heart rate sounds regular and no significant murmur is audible. His abdomen is quite markedly obese but overall soft and nontender in all 4 quadrants. He has an area of seborrhea in the center of his chest that appears stable and self- limited. The lower extremity show some of the hair appears to be thinning in his lower extremities. Both lower extremities appear well-perfused. He moves upper and lower extremities with purposeful movements without difficulty. Psych Appearance: grossly normal and well kempt Speech and Movement: delayed speech Mood: dysthymic mood Affect: sad Attitude: cooperative Thought Process: normal Thought Content: no hallucinations Insight: limited Judgment: limited Other: When asked about suicidality he says he has thought about it in the past but not here because you are taking care of me. Results Labs 03/19/23 17:08 03/19/23 17:08 Labs: Laboratory Results - last 24 hr 03/19/23 03/19/23 03/19/23 17:08 17:26 18:25 WBC 7.38 RBC 6.28 H Hgb 17.8 H Hct 57.7 H* MCV 92 MCH 28.3 MCHC 30.8 L RDW 17.3 H Plt Count 291 MPV 9.6 Immature Gran % 0.3 Neutrophils % 62.6 Lymphocytes % 23.4 Monocytes % 10.7 Eosinophils % 2.7 Basophils % 0.3 Nucleated RBC % 0.0 Absolute Neutrophils 4.62 Absolute Lymphocytes 1.73 Absolute Monocytes 0.79 Absolute Eosinophils 0.20 Absolute Basophils 0.02 ESR 9 VBG pH 7.34 VBG pCO2 76 H* VBG pO2 44 VBG HCO3 41 H VBG Total CO2 35 H VBG O2 Saturation 82 VBG Base Excess 15 H VBG Lactate 1.4 Sodium 143 Potassium 4.7 Chloride 101 Carbon Dioxide 40.1 H Anion Gap 1.9 L BUN 20 H Creatinine 0.8 Est GFR (CKD-EPI 2020) 100.69 Glucose 91 Calcium 9.5 Magnesium 1.9 Total Bilirubin 0.3 AST 12 L ALT 19 Alkaline Phosphatase 99 Troponin I < 50 C-Reactive Protein 0.08 NT-Pro-B Natriuret Pep 484 H Total Protein 7.0 Albumin 3.5 Lipase 19 Procalcitonin < 0.1 Urine Color Yellow Urine Clarity Clear Urine pH 5.5 Ur Specific [place] >= 1.030 H Urine Protein 30 H Urine Ketones Trace H Urine Blood Negative Urine Nitrite Negative Urine Bilirubin Negative Urine Urobilinogen 0.2 Ur Leukocyte Esterase Negative Urine RBC 0-2 Urine WBC 0-2 Ur Epithelial Cells Rare Urine Crystals Negative Urine Bacteria Negative Urine Casts 0-2 Hyaline Urine Mucus Trace Ur Culture Indicated? No Urine Glucose Negative Salicylates < 2.8 Urine Opiates Screen Negative Urine Methadone Screen Negative Acetaminophen < 2 Ur Barbiturates Screen Negative Ur Tricyclics Screen Negative Ur Amphetamines Screen Negative U Benzodiazepines Scrn Negative Urine Cocaine Screen Negative Ur THC Screen Negative Ethyl Alcohol < 3.0 COVID-19 Source Nasopharynx SARS-CoV-2 (PCR) Negative Influenza Type A (PCR) Negative Influenza Type B (PCR) Negative RSV (PCR) Negative Last Vital Signs Temp 37.2 C 03/19/23 21:02 Pulse 65 03/19/23 21:02 Resp 16 03/19/23 21:02 BP 113/74 03/19/23 21:02 Pulse Ox 90 L 03/19/23 21:02 PAWSS Pt Consumed Any Amount of Alcohol Within the Last 30 days OR had positive VONNIE Upon Admission: No Time Spent Time spent with Patient: 40-54 minutes Time was spent: preparing to see the patient(eg.review tests), obtaining and/or reviewing separately [facility], ordering medications,tests, procedures, referring, communicating with other health long term care administrator, indepentently interpreting results, counseling the patient and care coordination
[2023-03-19] MEDS: Atorvastatin 20 MG TAB PO (22:49)
[2023-03-19] MEDS: Enoxaparin 40 MG/0.4 ML SYR SC (22:49)
[2023-03-19] MEDS: Divalproex Sodium 500 MG TAB.ER.24H PO (22:49)
[2023-03-19] MEDS: Oxybutynin-CR 5 MG TABCR 30 MG PO (22:50)
[2023-03-20] VITALS (60 sets, daily range): BP systolic 112–157; BP diastolic 71–101; PULSE 52–89; RESP 5–26; TEMP 36.1–36.7; O2SAT 86–94
[2023-03-20] MEDS: Budesonide/Formoterol 160/4.5 6 GM 60 PUFF INH IH ×3 (00:17→19:44)
[2023-03-20 06:35] LABS: Abs Immature Grans 0.01 10^3/uL (0.0-0.06); Absolute Eosinophil Count 0.04 10^3/uL (0.0-0.7); Absolute Lymphocyte Count 0.71 10^3/uL (1.2-3.4); Absolute Monocyte Count 0.09 10^3/uL (0.1-0.8); Absolute Neutrophil Count 3.99 10^3/uL (1.2-6.7); Eosinophils % 0.8; HGB 17.5 g/dL (13.5-17.5); Immature Grans % 0.2; Lymphocytes % 14.7; MCH 28.3 pg (27.0-33.0); MCHC 31.2 % (32.0-36.0); MCV 91 fL (80-95); MPV 9.6 fL (8.0-11.0); Monocytes % 1.9; Neutrophils % 82.4; Platelet Count 279 10^3/uL (130-400); RBC 6.19 10^6/uL (4.36-5.78); RDW 17.2 % (11.8-14.1); RDW-SD 54.6 fL; WBC 4.84 10^3/uL (4.4-10.8)
[2023-03-20 06:43] LABS: HCT 56.1 % (40.0-50.0)
[2023-03-20 07:06] LABS: Anion Gap 4.4 mmol/L (3-11); BUN 25 mg/dL (7-18); CO2 34.6 mmol/L (21.0-32.0); CREATININE 0.8 mg/dL (0.70-1.30); Calcium 8.9 mg/dL (8.5-10.1); Chloride 99 mmol/L (98-107); Estimated GFR 100.69 (mL/min/1.73m2); Glucose 199 mg/dL (74-106); Potassium 4.8 mmol/L (3.5-5.1); Sodium 138 mmol/L (136-145)
[2023-03-20] MEDS: predniSONE 20 MG TAB 40 MG PO (08:57)
[2023-03-20] MEDS: Acetaminophen 325 MG TAB PO ×3 (08:57→21:18)
[2023-03-20] MEDS: ARIPiprazole 5 MG TAB 20 MG PO (08:58)
[2023-03-20] MEDS: Umeclidinium 7 CAP INHALER 1 CAP IH (09:20)
--- NOTE | 2023-03-20 11:30 | PHA.REVIEW2 ---
Pharmacy Admission Review Admission Clinical Review Admission Pharmacy Review: COPD exacerbation (Acute) Acute on chronic respiratory failure with hypoxia and hypercapnia (Acute) Suicide ideation (Acute) Seborrheic dermatitis (Acute) Sleep apnea (Acute) Supplemental oxygen dependent (Acute) Penicillins Allergy (Severe, Unverified 02/19/23 14:36) Anaphylaxis dextromethorphan [From Dimetapp Cold-Congestion] Allergy (Mild, Unverified 02/19/23 14:36) Skin Rash diphenhydramine [From Dimetapp Cold-Congestion] Allergy (Mild, Unverified 02/19/23 14:36) Skin Rash guaifenesin [From Dimetapp Cold-Congestion] Allergy (Mild, Unverified 02/19/23 14:36) Skin Rash phenylephrine [From Dimetapp Cold-Congestion] Allergy (Mild, Unverified 02/19/23 14:36) Skin Rash pseudoephedrine [From Dimetapp Cold-Congestion] Allergy (Mild, Unverified 02/19/23 14:36) Skin Rash bupropion [From Wellbutrin] Adverse Reaction (Intermediate, Unverified 02/19/23 14:36) Other (See Comment) Resuscitation Status Full Code Height 5 ft 9 in Weight 97 kg Comments Comments/Follow Ups: Continue to monitor vital signs, blood pressure has been quite elevated (150/101). Home meds that provider will be adding will hopefully help with that. Pharmacy Admission Review Renal Dosing Renal Dosing: BUN 25 mg/dL (7-18) H 03/20/23 05:45 Creatinine 0.8 mg/dL (0.70-1.30) 03/20/23 05:45 Medications needing adjustments: Reviewed (CrCl 89.11 mL/min) Anticoagulation Anticoagulation: Hgb 17.5 g/dL (13.5-17.5) 03/20/23 05:45 Hct 56.1 % (40.0-50.0) H 03/20/23 05:45 Plt Count 279 10^3/uL (130-400) 03/20/23 05:45 Creatinine 0.8 mg/dL (0.70-1.30) 03/20/23 05:45 DVT Prophylaxis: Reviewed Medications: Enoxaparin (40mg q24h) Relevant Labs Relevant Labs: ESR 9 mm/hr (0-20) 03/19/23 17:08 Sodium 138 mmol/L (136-145) 03/20/23 05:45 Potassium 4.8 mmol/L (3.5-5.1) 03/20/23 05:45 Chloride 99 mmol/L (98-107) 03/20/23 05:45 Magnesium 1.9 mg/dL (1.8-2.4) 03/19/23 17:08 C-Reactive Protein 0.08 mg/dL (0.0-0.3) 03/19/23 17:08 Electrolytes, C-Reactive P, ESR: Reviewed Cardiac Review Cardiac Review: Blood Pressure [Left Arm] 140/89 Blood Pressure [Left Arm] 124/84 Blood Pressure 150/101 Blood Pressure 142/88 Blood Pressure 142/88 Blood Pressure 142/88 Blood Pressure 140/89 Blood Pressure 140/89 Blood Pressure 127/90 Blood Pressure 124/84 Blood Pressure 124/84 Troponin I < 50 ng/L (<or=60) 03/19/23 17:08 NT-Pro-B Natriuret Pep 484 pg/mL (<300) H 03/19/23 17:08 BP, HR, EF%: Reviewed (BP 150/101, HR WNL, Ox 90 (on nasal cannula 3). ) QTc Review QTc: Reviewed (444 02/19/23 most recent EKG) IV to PO Switch IV Medications: Reviewed Home Meds Home Med List reviewed: Intervened Relevent Home Meds Not ordered & why?: On home med list but not ordered: Vitamin D3, Vitamin B12 Mentioned to provider that patient takes lisinopril, amlodipine and prazosin at home but there were no current orders for them. Provider plans on putting in new orders. Current Meds Current Medication Order Review: Reviewed Pharmacy Antibiotic Review Relevant Labs: Relevant Labs 03/19/23 17:08 C-Reactive Protein 0.08 Procalcitonin < 0.1 Comments Comments/Follow Ups: Continue to monitor vital signs, blood pressure has been quite elevated (150/101). Home meds that provider will be adding will hopefully help with that.
[2023-03-20] MEDS: amLODIPine 5 MG TAB PO (13:10)
[2023-03-20] MEDS: Lisinopril 20 MG TAB PO ×2 (13:10→20:07)
--- NOTE | 2023-03-20 14:32 | W.PALLCONSUL ---
Date of service: 03/20/23 Time of Service: 14:15 History of Present Illness Narrative: Nathan was seen in his hospital room in the ICU. He states his life is a mess. He lives at [facility]. He said they are thinking about moving him. He feels his breathing is a little better. He is tired, he did not sleep well last night. His appetite is good. Reviewed CODE status again. He states he is thinking about changing it. He wants to think about it more. He is not ready to make any changes today. He is open to discussion in the future. He does not have HCA. He was thinking about having Veronica but she is his care provider. He states he does not family that can make decisions for him if he is unable to do so. Assessment and Plan Assessment and plan (1) Acute on chronic respiratory failure with hypoxia and hypercapnia: Status: Acute Assessment and plan: Has not been using home BIPAP, hospital staff working to get this in place prior to discharge to avoid readmission. (2) COPD exacerbation: Status: Acute (3) Suicide ideation: Status: Acute Assessment and plan: He is a [employer] client, and was seen by mental health who created a safety plan. (4) Sleep apnea: Status: Acute Assessment and plan: As above. (5) Depression: Status: Chronic (6) Supplemental oxygen dependent: Status: Acute Assessment and plan: Nathan is a 62 year old who is a [employer] client and lives at [facility]. He is admitted for acute on chronic respiratory failure in the setting of not wearing his [facility]AP at the [facility]. He is a FULL CODE. Palliative was consulted to discuss goals of care. He was seen during his last hospitalization as well. He continues to report that he is thinking about changing his CODE status but he needs more time. Discussed CODE status in depth. He was falling asleep at times during the visit. At this point, he remains a FULL CODE. Continue to discuss at future visits. He is living at [facility]. He is not sure if he will stay there. He discussed having his care provider be his HCA but she would not be able to do this. F/u per his preference. He would probably need a HV if he agrees to f/u. Review of Systems Narrative: per hpi. PFSH All Active Problems (Updated 03/26/23 @ 00:05 by HANNA CAMARENA) Right upper quadrant abdominal pain (Acute) Chronic back pain (Acute) Gram-negative bacteremia (Acute) COPD exacerbation (Acute) Acute on chronic respiratory failure with hypoxia and hypercapnia (Acute) COPD (chronic obstructive pulmonary disease) (Chronic) Suicide ideation (Acute) Seborrheic dermatitis (Acute) Sleep apnea (Acute) Depression (Chronic) Supplemental oxygen dependent (Acute) Medical History (Updated 03/26/23 @ 00:05 by HANNA CAMARENA) Pneumonia Acute hypoxemic respiratory failure Respiratory insufficiency Hallucinations Headache COVID-19 Altered mental status Septic shock Right bundle branch block Elevated troponin Elevated LFTs MICHAEL (acute kidney injury) Hyperkalemia Lactic acidosis COVID Respiratory failure with hypoxia and hypercapnia Nicotine dependence, cigarettes, uncomplicated Hypoxemia Tobacco dependence Obesity Incontinence of urine HTN (hypertension) Hypertension Tobacco abuse Bipolar 1 disorder Diabetes Obstructive sleep apnea Palliative care patient Obesity (BMI 30-39.9) Hyperlipidemia Schizophrenia Family History Other Adopted Social History Smoking/Tobacco Use Status: Current every day Tobacco Type: cigarettes Smoking packs per day: 0 Smoking cigarettes per day: 0.0 Years smoked: 30 Smoking pack-years: 0.00 Tobacco: How many years used: 30 Smoking risk assessment performed?: Yes Alcohol Intake: former Drug use: Never Substance use type: does not use Caregiver/Support person: No Household members: none Housing: assisted living facility Number of Children: 0 Communication Needs: Hard of Hearing and Corrective Lenses Education Level: high school Do you need help understanding health information?: Always current occupation: disabled due to mental illness Pets and animals: No Current gender identity: male What is your relationship status?: never How often do you talk on the phone with friends or family?: never How often do you get together with friends or relatives?: never Panel score (0-1 are the most socially isolated patients): 0 What type of physical activity do you participate in: none and sedentary lifestyle Frequency: does not exercise Special mannie needs: No Seatbelt use: always Do you feel safe at home: No Do you feel safe in your relationship?: Yes Additional Social history: Pt states he is not taken care of at his [facility] Exam Narrative Exam Narrative: General: pleasant, well-nourished, middle aged man. Laying in ICU bed with HOB elevated. His affect is flat. He was falling asleep at times during the visit. HEENT: atraumatic, EOMI, mmm, poor dentition. Neck: supple Respiratory: respirations appear even and unlabored at rest. Extremities: moves all 4 extremities freely. repositioning himself in bed frequently. Results Last Vital Signs Temp 36.1 C L 03/20/23 05:30 Pulse 63 03/20/23 14:01 Resp 19 03/20/23 14:01 BP 118/83 03/20/23 14:01 Pulse Ox 86 L 03/20/23 14:01 Labs 03/24/23 06:20 03/24/23 08:30 Labs: Laboratory Results - last 24 hr 03/19/23 03/19/23 03/19/23 17:08 17:26 18:25 WBC 7.38 RBC 6.28 H Hgb 17.8 H Hct 57.7 H* MCV 92 MCH 28.3 MCHC 30.8 L RDW 17.3 H Plt Count 291 MPV 9.6 Immature Gran % 0.3 Neutrophils % 62.6 Lymphocytes % 23.4 Monocytes % 10.7 Eosinophils % 2.7 Basophils % 0.3 Nucleated RBC % 0.0 Absolute Neutrophils 4.62 Absolute Lymphocytes 1.73 Absolute Monocytes 0.79 Absolute Eosinophils 0.20 Absolute Basophils 0.02 ESR 9 VBG pH 7.34 VBG pCO2 76 H* VBG pO2 44 VBG HCO3 41 H VBG Total CO2 35 H VBG O2 Saturation 82 VBG Base Excess 15 H VBG Lactate 1.4 Sodium 143 Potassium 4.7 Chloride 101 Carbon Dioxide 40.1 H Anion Gap 1.9 L BUN 20 H Creatinine 0.8 Est GFR (CKD-EPI 2020) 100.69 Glucose 91 Calcium 9.5 Magnesium 1.9 Total Bilirubin 0.3 AST 12 L ALT 19 Alkaline Phosphatase 99 Troponin I < 50 C-Reactive Protein 0.08 NT-Pro-B Natriuret Pep 484 H Total Protein 7.0 Albumin 3.5 Lipase 19 Procalcitonin < 0.1 Urine Color Yellow Urine Clarity Clear Urine pH 5.5 Ur Specific [place] >= 1.030 H Urine Protein 30 H Urine Ketones Trace H Urine Blood Negative Urine Nitrite Negative Urine Bilirubin Negative Urine Urobilinogen 0.2 Ur Leukocyte Esterase Negative Urine RBC 0-2 Urine WBC 0-2 Ur Epithelial Cells Rare Urine Crystals Negative Urine Bacteria Negative Urine Casts 0-2 Hyaline Urine Mucus Trace Ur Culture Indicated? No Urine Glucose Negative Salicylates < 2.8 Urine Opiates Screen Negative Urine Methadone Screen Negative Acetaminophen < 2 Ur Barbiturates Screen Negative Ur Tricyclics Screen Negative Ur Amphetamines Screen Negative U Benzodiazepines Scrn Negative Urine Cocaine Screen Negative Ur THC Screen Negative Ethyl Alcohol < 3.0 COVID-19 Source Nasopharynx SARS-CoV-2 (PCR) Negative Influenza Type A (PCR) Negative Influenza Type B (PCR) Negative RSV (PCR) Negative 03/20/23 05:45 WBC 4.84 RBC 6.19 H Hgb 17.5 Hct 56.1 H MCV 91 MCH 28.3 MCHC 31.2 L RDW 17.2 H Plt Count 279 MPV 9.6 Immature Gran % 0.2 Neutrophils % 82.4 Lymphocytes % 14.7 Monocytes % 1.9 Eosinophils % 0.8 Basophils % 0.0 Nucleated RBC % 0.0 Absolute Neutrophils 3.99 Absolute Lymphocytes 0.71 L Absolute Monocytes 0.09 L Absolute Eosinophils 0.04 Absolute Basophils 0.00 ESR VBG pH VBG pCO2 VBG pO2 VBG HCO3 VBG Total CO2 VBG O2 Saturation VBG Base Excess VBG Lactate Sodium 138 Potassium 4.8 Chloride 99 Carbon Dioxide 34.6 H Anion Gap 4.4 BUN 25 H Creatinine 0.8 Est GFR (CKD-EPI 2020) 100.69 Glucose 199 H Calcium 8.9 Magnesium Total Bilirubin AST ALT Alkaline Phosphatase Troponin I C-Reactive Protein NT-Pro-B Natriuret Pep Total Protein Albumin Lipase Procalcitonin Urine Color Urine Clarity Urine pH Ur Specific [place] Urine Protein Urine Ketones Urine Blood Urine Nitrite Urine Bilirubin Urine Urobilinogen Ur Leukocyte Esterase Urine RBC Urine WBC Ur Epithelial Cells Urine Crystals Urine Bacteria Urine Casts Urine Mucus Ur Culture Indicated? Urine Glucose Salicylates Urine Opiates Screen Urine Methadone Screen Acetaminophen Ur Barbiturates Screen Ur Tricyclics Screen Ur Amphetamines Screen U Benzodiazepines Scrn Urine Cocaine Screen Ur THC Screen Ethyl Alcohol COVID-19 Source SARS-CoV-2 (PCR) Influenza Type A (PCR) Influenza Type B (PCR) RSV (PCR)
--- NOTE | 2023-03-20 15:57 | PDOC.CMIN ---
Date of service: 03/20/23 Time of Service: 15:57 Care Management Initial Assmt Initial Assessment REASON FOR HOSPITALIZATION:: COPD, SI PREVIOUS FUNCTIONAL STATUS/SOCIAL/FAMILY SUPPORTS:: Nathan lives at [facility] in [place], [place] He was previously housed in a hotel and finds [facility] much better. Nathan does not have any close relatives in the area. When asked who he has for support, he said no one. Nathan is independent with ADLs and is a [employer] client. CURRENT FUNCTIONAL STATUS:: Nathan was siting up in bed when CM met with him. He appeared sad and was teary at times. Nathan has a CPAP machine that has not been functional for a while. RT has attempted to find out where his machine is currently and whether or not repairs have been made. There are concerns that without using CPAP at night, Nathan will only readmit within a short period of time. Nathan was verbalizing SI when he was admitted. He was medically cleared this morning and was screened by [facility]. They determined he was safe to go home with a safety plan. ADVANCE DIRECTIVES:: On file. Delmy LAMAS Has patient been provided with info about the portal/API?: Yes Did the patient sign up for the portal?: No CODE STATUS:: Full Code CURRENT HOME/COMMUNITY SERVICES/EQUIPMENT:: has a CPAP machine Lives at [facility] [employer] client PRIMARY CARE PHYSICIAN:: Renée Flores POTENTIAL DISCHARGE NEEDS:: follow up with PCP, plan of care PATIENT/FAMILY EDUCATION NEEDS:: Review of discharge instructions, activity, limitations, follow up plan, discuss [employer] Me [employer] TRANSPORTATION:: via private vehicle with [facility] staff or RCT PLAN:: Nathan will likely be discharged home to [facility] on a safety plan created in conjunction with [facility]. He will follow up with his community providers and supports through [employer] and transport with staff vs RCT. CM will follow. [facility] All Active Problems (Updated 03/19/23 @ 21:51 by Barrington De La O MD) COPD exacerbation (Acute) Acute on chronic respiratory failure with hypoxia and hypercapnia (Acute) COPD (chronic obstructive pulmonary disease) (Chronic) Suicide ideation (Acute) Seborrheic dermatitis (Acute) Sleep apnea (Acute) Depression (Chronic) Supplemental oxygen dependent (Acute) Medical History (Updated 03/19/23 @ 21:51 by Barrington De La O MD) Pneumonia Acute hypoxemic respiratory failure Respiratory insufficiency Hallucinations Headache COVID-19 Altered mental status Septic shock Right bundle branch block Elevated troponin Elevated LFTs MICHAEL (acute kidney injury) Hyperkalemia Lactic acidosis COVID Respiratory failure with hypoxia and hypercapnia Nicotine dependence, cigarettes, uncomplicated Hypoxemia Tobacco dependence Obesity Incontinence of urine HTN (hypertension) Hypertension Tobacco abuse Bipolar 1 disorder Diabetes Obstructive sleep apnea Palliative care patient Obesity (BMI 30-39.9) Hyperlipidemia Schizophrenia Family History Other Adopted Social History Smoking/Tobacco Use Status: Current every day Tobacco Type: cigarettes Smoking packs per day: 0 Smoking cigarettes per day: 0.0 Years smoked: 30 Smoking pack-years: 0.00 Tobacco: How many years used: 30 Smoking risk assessment performed?: Yes Alcohol Intake: former Drug use: Never Substance use type: does not use Caregiver/Support person: No Household members: none Housing: assisted living facility Number of Children: 0 Communication Needs: Hard of Hearing and Corrective Lenses Education Level: high school Do you need help understanding health information?: Always current occupation: disabled due to mental illness Pets and animals: No Current gender identity: male What is your relationship status?: never How often do you talk on the phone with friends or family?: never How often do you get together with friends or relatives?: never Panel score (0-1 are the most socially isolated patients): 0 What type of physical activity do you participate in: none and sedentary lifestyle Frequency: does not exercise Special mannie needs: No Seatbelt use: always Do you feel safe at home: No Do you feel safe in your relationship?: Yes Additional Social history: Pt states he is not taken care of at his [facility] SDWV(Care Management) Screening Will the Patient Participate in the Screening?: Yes Do you worry about having a steady place to live?: yes Problems where you live: no known problems In the past 12 months, have you had to go without electric, gas, oil or water in your home?: yes Have you or anyone in your house had to go without enough food to eat?: yes Has lack of transportation kept you from medical appointments or from doing things needed for daily living?: yes Has anyone in your support network made you feel unsafe for any reason?: yes Social Determinants of Health Comments(SDOH Details): lives at [facility], Is supposed to have Bipap machine but has not been provided or it has been lost? Patient unclear. Health Related Social Needs Health related social needs: housing instability, housed, with risk of homelessness(Z59.811), food insecurity(Z59.41), transportation insecurity(Z59.82), material hardship(utilities)(Z59.87) and problem related to primary support group(Z63.9)
--- NOTE | 2023-03-20 18:02 | W.PM.PROGNOT ---
Date of Service Date of service: 03/20/23 Time of Service: 09:00 Assessment and Plan Assessment and plan (1) COPD exacerbation: Status: Acute Assessment and plan: -presents with hypercapnic respiratory failure with the pCO2 of 76. -Patient has been ordered home BiPAP, and after further investigation it appears that it did not been working was sent out for repair and has not been sent back to him -He was on BiPAP overnight but has since been taken off his a.m. VBG shows improvement in CO2 (2) Acute on chronic respiratory failure with hypoxia and hypercapnia: Status: Acute Assessment and plan: -Hypercapnia secondary to not using his home CPAP/BiPAP device. -His mental status appears to be stable although he did have a paucity of speech. -Appreciate respiratory assistance and tracking down patient's machine or obtaining a new at bedtime BiPAP for discharge (3) COPD (chronic obstructive pulmonary disease): Status: Chronic Assessment and plan: History of longstanding tobacco abuse. On controller meds. Continue as ordered. Qualifiers: COPD type: COPD with acute exacerbation Qualified Code(s): J44.1 - Chronic obstructive pulmonary disease with (acute) exacerbation (4) Suicide ideation: Status: Acute Assessment and plan: -History of depression and suicidality. -Patient has been seen by mental health and patient has safety plan for discharge (5) Seborrheic dermatitis: Status: Acute Assessment and plan: Mild seborrheic dermatitis in his center of his chest. (6) Sleep apnea: Status: Acute Assessment and plan: - As noted above (7) Depression: Status: Chronic Assessment and plan: Longstanding depression. He is on Depakote and ariprazole. Continue present meds. (8) Supplemental oxygen dependent: Status: Acute Assessment and plan: Longstanding oxygen dependency. Came in satting 85% on 3 L. He is showing a tendency to retain CO2. Will likely need noninvasive respiratory support ongoing. Subjective Subjective Interval history since last seen: Patient states that he is feeling better today. He understands he is can speak with mental health. Exam Narrative Exam Narrative: Chronically ill-appearing gentleman laying in bed in no acute distress, appears older than stated age, ANO x 4, heart regular rhythm, lungs clear to auscultation bilaterally, abdomen soft, nontender nondistended Objective Last Vital Signs Temp 98.1 F 03/20/23 15:01 Pulse 63 03/20/23 14:01 Resp 19 03/20/23 14:01 BP 118/83 03/20/23 14:01 Pulse Ox 86 L 03/20/23 14:01 Laboratory Results - last 24 hr 03/19/23 03/19/23 03/20/23 17:08 18:25 05:45 WBC 4.84 RBC 6.19 H Hgb 17.5 Hct 56.1 H MCV 91 MCH 28.3 MCHC 31.2 L RDW 17.2 H Plt Count 279 MPV 9.6 Immature Gran % 0.2 Neutrophils % 82.4 Lymphocytes % 14.7 Monocytes % 1.9 Eosinophils % 0.8 Basophils % 0.0 Nucleated RBC % 0.0 Absolute Neutrophils 3.99 Absolute Lymphocytes 0.71 L Absolute Monocytes 0.09 L Absolute Eosinophils 0.04 Absolute Basophils 0.00 Sodium 138 Potassium 4.8 Chloride 99 Carbon Dioxide 34.6 H Anion Gap 4.4 BUN 25 H Creatinine 0.8 Est GFR (CKD-EPI 2020) 100.69 Glucose 199 H Calcium 8.9 Procalcitonin < 0.1 Urine Color Yellow Urine Clarity Clear Urine pH 5.5 Ur Specific [place] >= 1.030 H Urine Protein 30 H Urine Ketones Trace H Urine Blood Negative Urine Nitrite Negative Urine Bilirubin Negative Urine Urobilinogen 0.2 Ur Leukocyte Esterase Negative Urine RBC 0-2 Urine WBC 0-2 Ur Epithelial Cells Rare Urine Crystals Negative Urine Bacteria Negative Urine Casts 0-2 Hyaline Urine Mucus Trace Ur Culture Indicated? No Urine Glucose Negative Urine Opiates Screen Negative Urine Methadone Screen Negative Ur Barbiturates Screen Negative Ur Tricyclics Screen Negative Ur Amphetamines Screen Negative U Benzodiazepines Scrn Negative Urine Cocaine Screen Negative Ur THC Screen Negative COVID-19 Source Nasopharynx SARS-CoV-2 (PCR) Negative Influenza Type A (PCR) Negative Influenza Type B (PCR) Negative RSV (PCR) Negative PAWSS Pt Consumed Any Amount of Alcohol Within the Last 30 days OR had positive VONNIE Upon Admission: No Time Spent with Patient Time Spent with Patient: >50 minutes Time was spent: preparing to see the patient(eg.review tests), obtaining and/or reviewing separately otained hiistory, ordering medications,tests, procedures, referring, communicating with other health acute care certified nursing assistant, indepentently interpreting results, counseling the patient and care coordination
--- NOTE | 2023-03-20 18:51 | PDOC.MHCN ---
Date of service: 03/20/23 Time of Service: 18:51 PHQ-9 Over the last 2 weeks, how often have you been bothered by any of the following problems? 1. Little interest or pleasure in doing things: more than half the days 2. Feeling down, depressed, or hopeless: nearly every day 3. Trouble falling or staying asleep, or sleeping too much: nearly every day 4. Feeling tired or having little energy: several days 5. Poor appetite or overeating: nearly every day 6. Feeling bad about yourself - or that you are a failure or have let yourself and your family down: more than half the days 7. Trouble concentrating on things, such as reading the newspaper or watching television: nearly every day 8. Moving or speaking so slowly that other people could have noticed? - Or the opposite - being so fidgety or restless that you have been moving around a lot more than usual: several days 9. Thoughts that you would be better off or of hurting yourself in some way: several days Total score: 19 If you checked off any problems, how difficult have these problems made it for you to do your work, take care of things at home, or get along with other people?: somewhat difficult Source: Developed by Drs. Anam Caraballo, Enriqueta Orellana, Eben Bai and colleagues, with an educational anthony from [employer]. Suicide Severity Rate CSSRS Have you wished you were or wished you could go to sleep and not wake up?: Yes Have you actually had any thoughts of killing yourself?: No CSSRS3 Have you ever done anything, started to do anything or prepared to do anything to end your life?: Yes CSSRS4 Was this within the past three months?: No Screening Score Total Score: 4 Screening: Positive Mental Health Emergency Note Release [facility] release signed:: Yes Reason for Visit The client arrived on 03.19.23 due to dehydration and had also made some suicidal statements once there so once medically cleared a MH assessment for risk was requested. 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 Intent: no, has no intent. Plan: no.does not have a plan. History of suicide attempt: yes,history of suicide attempt reported. Details of previous suicide attempt: unknown Risk: Does risk to harm exist?: yes. Access to means: No. Risk: Low Risk Duty to warn indicated: No Asssessment/Mental Status Appearance: Disheveled Attitude: Cooperative Behavior: Unremarkable Speech: Soft Affect: Flat and Cogruent with mood Mood: Depressed Thought process: Goal directed Hallucinations: No Delusions: No Attention: Unremarkable Perception: Not impaired Orientation: Fully orientated Memory: Intact Insight: Good Judgement: Good Neurovegetative Symptoms Sleep: Decrease Appetitie: No change Interests: No change Energy: Decrease Substance Use: Do you use nicotine?: Yes Have you used substances in the last 7 days?: No Additional Issues: Assaultive/Threatening Behavior: No Medical Concerns: Yes Client engaged in active self harm w/weapon: No Threatening to run away: No Child reported abuse/neglect: No Voluntarily presenting for services: Yes Domestic violence is a concern: No Extreme Psychosis or extreme behavior is present: No Impression The client is a 62 year old, single, male who is 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 He presented to the ED on 03.19.22 for dehydration and expressed some SI. Today's screening was completed face to face after he was medically cleared at the request of [facility]. The client presented more depressed than typical per this clinician's observation as evidenced by a flat affect, minimal eye contact, soft speech as well as, unidentifiable strengths and inability to recognize when he is slipping into a crisis while doing his safety plan. He is lying in bed but eventually sits up to speak with the client. He is eating his lunch but is not finding any enjoyment in this as he states it is not as flavorful as he had hoped. The client reported that he is at the hospital because he fell again, and I hear voices. He notes that the voices tell him to shut up, go to sleep, stop focusing on that. He notes that this has been ongoing for a couple of years. He scored a 19/27 on his PHQ-9. He reported poor sleep and voices and/or his perception that influence what he believes others (staff at his home) are telling him regarding his appetite, which he uses as a coping mechanism. He reported that he feels his body is slow (almost like standing still) and his mind is 90 MPH. He denied SI but stated that he thinks at times others are going to kill me when asked about SI. He also acknowledged that when he goes to sleep he thinks about not waking up and when he wakes he feels he is in a different space. He identified his risk a 0/10. He enjoys painting although has not engaged in this much. He identified that he is taking his medications as they are administered however, he does not believe they are working. After a record review it was noted that he was last seen on 01/31 by his med provider and was suggested a new visit in 1 month. He has not been seen since then and there were no noted new appointments in the near future. 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 The client also notes his wish for a higher level of daily care i.e. a level two nursing facility. He is not feeling his needs are being met where he is at this time. Plan/Disposition Recommended Disposition: [facility] Services [facility] Services: Other. Plan: The client engaged in a safety plan and at this time is not appropriate for a higher level of care even with fleeting thoughts of SI. He has no plan or intent. His team was made aware of his needs and they should follow up on this. This note will be forwarded to his med provider for review as well as he is almost 2 months late for his recommended follow up appointment. Person reported agreement to plan: Yes Reports/communication Outcome discussed with: ED/Personnel
[2023-03-20] MEDS: Divalproex Sodium 500 MG TAB.ER.24H PO (20:07)
[2023-03-20] MEDS: Atorvastatin 20 MG TAB PO (20:08)
[2023-03-20] MEDS: Oxybutynin-CR 5 MG TABCR 30 MG PO (20:15)
[2023-03-20] MEDS: Normal Saline Flush 10 ML SYR IVP (20:35)
[2023-03-20] MEDS: Enoxaparin 40 MG/0.4 ML SYR SC (21:16)
[2023-03-20] MEDS: Prazosin 1 MG CAP 3 MG PO (21:17)
[2023-03-20] MEDS: Melatonin 3 MG TAB PO (21:18)
[2023-03-21] VITALS (32 sets, daily range): BP systolic 108–168; BP diastolic 62–110; PULSE 47–92; RESP 2–31; TEMP 35.9–36.5; O2SAT 87–95
--- NOTE | 2023-03-21 | DI.US_ITS ---
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 Other Information Study Quality: Fair Conclusion 1. Mildly dilated left atrium,moderately dilated right atrium,ventricles normal sizes 2. Anatomically normal valves. NO VEGETATIONS on any valve. Mild MR,mild TR. 3.Mild concentric LVH with normal systolic function,EF 65%. No wall motion abnormality.Grade 2 diasto lic dysfunction. 4. No intracardiac shunt 5.No pericardial effusion. Wall motion Left Ventricle The left ventricle is normal size. The left ventricular systolic function is normal. The left ventric ular ejection fraction is within the normal range. Mild concentric left ventricular hypertrophy. Ther e is normal LV segmental wall motion. Grade II diastolic dysfunction. There is no ventricular septal defect visualized. LVEF is 65-70%. Right Ventricle The right ventricle is dilated in size. Right ventricular function is preserved with apical hypokines ia. Moderator band is seen in the right ventricle. Atria Left atrium is mildly dilated. Right atrium is moderately dilated. The interatrial septum is intact w ith no evidence for an atrial septal defect. Aortic Valve Aortic valve is trileaflet and mobile. The aortic valve is minimally thickened. There is no aortic va lvular stenosis. No aortic regurgitation is present. There is no aortic valvular vegetation. Mitral Valve The mitral valve leaflets are mildly thickened and myxomatous. No evidence of mitral valve stenosis. Mild mitral regurgitation. There is no evidence of mitral valve vegetations. Tricuspid Valve The tricuspid valve leaflets are mildly thickened and myxomatous. There is no tricuspid valve stenos is. Mild to moderate tricuspid regurgitation. Severe pulmonary hypertension. The RVSP is 69__ mm Hg. There is no tricuspid valve vegetations. Pulmonic Valve The pulmonary valve is normal in structure. There is no pulmonic valvular stenosis. Moderate pulmonic regurgitation. There is no pulmonic valve vegetations. Great Vessels The aortic root is normal in size. The pulmonary artery is normal. The ascending aorta is normal in s ize. Descending aorta is not well visualized. Aortic arch is normal in caliber. IVC is normal in size and collapses >50% with inspiration. Pericardium There is no pericardial effusion. There is no pleural effusion. 2D Dimensions IVSD d PLAX 1.37 cm M: 0.6-1.2 Ao Root d 3.08 cm M: 3.1 - 3.7 LVPW d PLAX 1.47 cm M: 0.6 - 1.2 Ao Asc Diam d 3.37 cm M: 2.6 - 3.4 LVID d PLAX 4.59 cm M: 4.2 - 5.8 Prox Ao Arch 2.7 cm LVDs 2.92 cm M: 2.5 - 4.0 LV EF Teichholz 66.2 % FS 36.38 % LV EDV (Teich) 96.7 mL LV ESV (Teich) 32.7 mL M-Mode TAPSE 2.02 cm (M/F) >1.7 Auto EF LV EDV A4C 128.9 mL LV EDV A2C 148.7 mL LV EDV BP 139.0 mL LV ESV A4C 52.3 mL LV ESV A2C 61.3 mL LV ESV BP 56.5 mL LVEF(%) A4C 59.4 % LVEF(%) A2C 58.7 % LVEF(%) BP 59.4 % LV SV A4C 76.5 ml LV SV A2C 87.3 ml LV SV BP 82.6 ml LV CO A4C 4.6 L/min LV CO A2C 5.4 L/min LV CO BP 5.0 L/min HR A4C 60.51 BPM HR A2C 61.75 BPM LV EDV Index (BP) LV Volumes - Method of Disks (Parham's) Single Plane 2D LV Volumes Biplane 2D LV Volumes LV EDV A4C 85.3 mL LV EDV BP 114.95 mL M: 62 - 150 LV ESV A4C 28.2 mL LV ESV BP 38.1 mL LVEF(%) A4C 67.0 % LVEF(%) BP 66.87 % M: 52 - 72 LV EDV A2C 145.3 mL LV EDV BP Index 54.22 mL/m2 M: 34 - 74 LV ESV A2C 49.6 mL SV BP LVEF(%) A2C 65.9 % SV Index LV Strain Long Pk Overal Avg (s) 16.57 LA Volume LA Length A4C 6.7 cm LA Length A2C 6.2 cm LA Area A4C s 23.75 cm2 LA Area A2C s 26.29 cm2 LA Vol A4C A-L 71.31 mL LA Vol A2C A-L 94.26 mL LA Vol Biplane A-L 85.2 mL LA Vol/BSA A4C A-L LA Vol/BSA A2C A-L LA Vol/BSA BP A-L 40.2 mL/m2 LA Vol A4C MOD 69.3 mL LA Vol A2C MOD 90.5 mL LA Vol BP MOD 82.1 mL LV Diastology MV E' medial 0.055 (>0.07 m/s) MV E Vmax 0.71 (0.4-1.3 m/s) MV E/E' MED 13.06 (<14) MV A Vmax 0.40 (0.4-1.3 m/s) MV E' lateral 0.105 (>0.1 m/s) E/A Ratio 1.8 MV E/E' LAT 6.80 (<14) MV E' Average 0.080 m/s MV E/E'(average) 8.94 Aortic Valve LVOT Vmax 1.08 m/s LVOT Peak Grad 4.7 mmHg LVOT VTI 0.227 m LVOT Mean Grad 2.3 mmHg LVOT SV 69.05 mL LVOT Diam s 1.95 cm Mitral Valve MV DT 203 (160-240 msec) Pulm Vein s 0.32 m/s Pulm Vein d 0.41 m/s Pulm Vein a 0.21 m/s Pulmonary Valve DC ED Velocity 1.70 m/s DC ED Grad 11.5 mmHg Tricuspid Valve RA Pressure 3.00 mmHg TR Vmax 4.05 m/s TV S' 0.13 m/s TR Peak Grad 65.7 mmHg RVSP (TR) 68.7 mmHg
[2023-03-21] MEDS: Normal Saline Flush 10 ML SYR IVP (04:35)
[2023-03-21] MEDS: Umeclidinium 7 CAP INHALER 1 CAP IH (07:51)
[2023-03-21] MEDS: Budesonide/Formoterol 160/4.5 6 GM 60 PUFF INH IH ×2 (07:51→20:30)
[2023-03-21 08:50] LABS: Abs Immature Grans 0.02 10^3/uL (0.0-0.06); Absolute Basophil Count 0.01 10^3/uL (0.0-0.2); Absolute Eosinophil Count 0.08 10^3/uL (0.0-0.7); Absolute Lymphocyte Count 2.01 10^3/uL (1.2-3.4); Absolute Monocyte Count 0.67 10^3/uL (0.1-0.8); Absolute Neutrophil Count 4.47 10^3/uL (1.2-6.7); Basophils % 0.1; Eosinophils % 1.1; HCT 52.6 % (40.0-50.0); HGB 16.4 g/dL (13.5-17.5); Immature Grans % 0.3; Lymphocytes % 27.7; MCH 28.3 pg (27.0-33.0); MCHC 31.2 % (32.0-36.0); MCV 91 fL (80-95); MPV 9.9 fL (8.0-11.0); Monocytes % 9.2; Neutrophils % 61.6; Platelet Count 233 10^3/uL (130-400); RDW 16.6 % (11.8-14.1); RDW-SD 54.6 fL; WBC 7.26 10^3/uL (4.4-10.8)
[2023-03-21 09:03] LABS: Anion Gap 1.3 mmol/L (3-11); BUN 15 mg/dL (7-18); CO2 37.7 mmol/L (21.0-32.0); CREATININE 0.7 mg/dL (0.70-1.30); Calcium 8.8 mg/dL (8.5-10.1); Chloride 99 mmol/L (98-107); Estimated GFR 104.83 (mL/min/1.73m2); Glucose 147 mg/dL (74-106); Magnesium 1.8 mg/dL (1.8-2.4); Potassium 4.2 mmol/L (3.5-5.1); Sodium 138 mmol/L (136-145)
[2023-03-21 09:06] LABS: C-Reactive Protein < 0.05 mg/dL (0.0-0.3)
--- NOTE | 2023-03-21 09:06 | PDOC.CMPRO ---
Date of service: 03/21/23 Time of Service: 09:07 Care Management Progress Note Progress Note Text Progress Note Text: S/O:Nathan was sitting up in bed when CM met with him. When asked how he was feeling, he stated not very good. But its mental, not physical. Nathan has suffered from depression for a long time and sharedthat he is somewhat depressed at this time. He informed the provider today that he felt he did not have enough support in the community. CM asked him about this and he admitted that at times he feels that way. Nathan is a [employer] client and they traditionally receive maximum services and supports in the community. When asked, Nathan stated that he has not reached out to his showcase maker when he feels like he needs support but verbalized that it might be helpful. Nathan lives at [facility], an assisted living facility. He also has supports there and CM encouraged him to reach out to the staff if he feels he needs help. A: Nathan is a 62 year old man admitted on 03/19/23 with a COPD Exacerbation P:Nathan will likely be discharged home to [facility] on a safety plan created in conjunction with [facility]. He will follow up with his community providers and supports through [employer] and transport with staff vs RCT. CM will follow.
[2023-03-21 09:25] LABS: Procalcitonin < 0.1 ng/mL
[2023-03-21] MEDS: ARIPiprazole 5 MG TAB 20 MG PO (09:32)
[2023-03-21] MEDS: Lisinopril 20 MG TAB PO ×2 (09:32→20:34)
[2023-03-21] MEDS: amLODIPine 5 MG TAB PO (09:32)
[2023-03-21] MEDS: predniSONE 20 MG TAB 40 MG PO (09:33)
[2023-03-21] MEDS: levoFLOXacin 750 MG/150 ML BAG 100 MG IVPB (09:47)
--- NOTE | 2023-03-21 09:57 | NUR.NOTE ---
Echocardiogram begins in room.Nursing Note:
--- NOTE | 2023-03-21 12:00 | W.NUTRFU ---
Date of service: 03/21/23 Time of Service: 12:00 Nutrition Note NOTE: received consult re: diabetes education Nathan admitted with COPD exac and bacteremia. Met with him and offered diabetes education - pt declined politely at this time. Lives in a communal setting where meals are prepared and his diabetes is managed. Most recent A1C was 6.7 last December. Eating well on Heart Health/CHO consistent diet order. No nutrition concerns at this time - will continue to follow. Time Spent in Nutritional Counseling and Treatment: 15 minutes
--- NOTE | 2023-03-21 12:44 | RESPIRATORY ---
Spoke with [facility] Brian this morning who stated he has not received any orders from [facility]. Brian also stated he would follow up with the sleep lab and see if he could obtain the order. I've left to messages this morning for [facility] and have not received a return call.
--- NOTE | 2023-03-21 13:08 | W.PM.PROGNOT ---
Date of Service Date of service: 03/21/23 Time of Service: 10:55 Assessment and Plan Assessment and plan (1) Gram-negative bacteremia: Status: Acute Assessment and plan: I suspect H. flu. For this reason, the patient was started on levofloxacin. Await speciation and sensitivities. Repeat blood cultures. Transthoracic echo showed no vegetations. Obtain sputum cx as well. (2) Acute on chronic respiratory failure with hypoxia and hypercapnia: Status: Acute Assessment and plan: Appears to be back to his baseline O2 requirement during the day. We are looking into his BiPAP situation at home. It appears that the new BiPAP had not been ordered as of yesterday. (3) COPD exacerbation: Status: Acute Assessment and plan: As above Schedule duonebs. Add antibiotics. Continue prednisone. (4) Suicide ideation: Status: Acute Assessment and plan: Seen by mental health who created a care plan, and the patient was cleared for discharge home to [facility] with OCC THERAPY ASST support. (5) Seborrheic dermatitis: Status: Acute Assessment and plan: center of his chest try hydrocortisone cream (6) Sleep apnea: Status: Acute Assessment and plan: As above, we are attempting to figure out the status of the outpatient BiPAP. (7) Depression: Status: Chronic Assessment and plan: As above Continue depakote and aripiprazole. Evaluated by mental health on this admission. (8) Supplemental oxygen dependent: Status: Acute Assessment and plan: Continue 3L of O2 during the day and BiPAP at night. 3L of O2 is his baseline. (9) DVT prophylaxis: Status: Acute Assessment and plan: SC lovenox (10) Discharge planning issues: Status: Acute Assessment and plan: Full code Palliative care consulted. Can be transferred out of the ICU Subjective Subjective Interval history since last seen: Mr Colunga states he does not feel good today. His primary complaint is feeling tired but also he states he feels depressed. Denied dizziness, CP, SOB, n/v. He spent the night on the BiPAP. Today he is on 3L of O2 saturating 92%. Blood cx positive for gram negative cocco bacilus. Exam Narrative Exam Narrative: General: Pleasant middle-aged male who is sitting up at the edge of the bed, A&Ox3, appears sad HEENT: EOMI, MMM Heart: RRR, no m/r/g Lungs: Diminished breath sounds B Abdomen: soft, nontender, nondistended Extremities: 2+ pitting edema BLEs, symmetric Objective Last Vital Signs Temp 36.4 C L 03/21/23 09:24 Pulse 78 03/21/23 09:24 Resp 18 03/21/23 09:24 BP 125/80 03/21/23 09:24 Pulse Ox 95 03/21/23 09:24 Laboratory Results - last 24 hr 03/21/23 08:35 WBC 7.26 RBC 5.80 H Hgb 16.4 Hct 52.6 H MCV 91 MCH 28.3 MCHC 31.2 L RDW 16.6 H Plt Count 233 MPV 9.9 Immature Gran % 0.3 Neutrophils % 61.6 Lymphocytes % 27.7 Monocytes % 9.2 Eosinophils % 1.1 Basophils % 0.1 Nucleated RBC % 0.0 Absolute Neutrophils 4.47 Absolute Lymphocytes 2.01 Absolute Monocytes 0.67 Absolute Eosinophils 0.08 Absolute Basophils 0.01 Sodium 138 Potassium 4.2 Chloride 99 Carbon Dioxide 37.7 H Anion Gap 1.3 L BUN 15 Creatinine 0.7 Est GFR (CKD-EPI 2020) 104.83 Glucose 147 H Calcium 8.8 Magnesium 1.8 C-Reactive Protein < 0.05 Procalcitonin < 0.1 Objective Narrative Objective Narrative: echo; 1. Mildly dilated left atrium,moderately dilated right atrium,ventricles normal sizes 2. Anatomically normal valves. NO VEGETATIONS on any valve. Mild MR,mild TR. 3.Mild concentric LVH with normal systolic function,EF 65%. No wall motion abnormality.Grade 2 diastolic dysfunction. 4. No intracardiac shunt 5.No pericardial effusion. PAWSS Pt Consumed Any Amount of Alcohol Within the Last 30 days OR had positive VONNIE Upon Admission: No Time Spent with Patient Time Spent with Patient: 35-49 minutes Time was spent: preparing to see the patient(eg.review tests), obtaining and/or reviewing separately otained hiistory, ordering medications,tests, procedures, referring, communicating with other health adult daycare coordinator, indepentently interpreting results, counseling the patient and care coordination
[2023-03-21] MEDS: Furosemide 20 MG/2 ML VIAL IVP (14:05)
--- NOTE | 2023-03-21 15:33 | RESPIRATORY ---
Addendum entered by Juve Neff 03/29/23 12:14: Pt's new device was delivered Friday03/25/23 to [facility]. Per the follow-up conversation from the [employer] company after delivery and setup of device: Just wanted to update you on the setup of this BiPAP. The staff at the facility were attentive and received the education on the use and care of the equipment but the patient decided to go outside for a smoke and was not willing to even allow us to fit the mask on him. We saw this the last time as well and the equipment was returned due to non-compliant use. I fear you will see this patient again soon if they are not willing to comply with the therapy. Addendum entered by Juve Neff 03/24/23 09:48: Attempted to get a hold of Jakob Reyes from [facility] this morning (Friday03/24/23) for update on status of new home NIV delivery. Have not heard back yet. Original Note: Spoke with Fred Barreto who verified problems and difficulties with non compliance with the patient in the past. Valeriy Barreto gave me a contact number for Aquilino Beth in the [facility] office. Aquilino stated the CPAP is in the verification process and marked urgent for discharge. He stated the earliest it could be set up would be 03/24 or Saturday 03/25.
[2023-03-21] MEDS: Omeprazole 20 MG CAPCR PO (16:13)
[2023-03-21] MEDS: Insulin Aspart 300 UNITS/3 ML PEN SC (16:57)
[2023-03-21] MEDS: Hydrocortisone 1% CR 30 GM TUBE TP (20:31)
[2023-03-21] MEDS: Albuterol/Ipratropium 3 ML UPD VIAL IH (20:34)
[2023-03-21] MEDS: Enoxaparin 40 MG/0.4 ML SYR SC (21:55)
[2023-03-21] MEDS: Divalproex Sodium 500 MG TAB.ER.24H PO (21:55)
[2023-03-21] MEDS: Oxybutynin-CR 5 MG TABCR 30 MG PO (21:55)
[2023-03-21] MEDS: Prazosin 1 MG CAP 3 MG PO (21:56)
[2023-03-21] MEDS: Atorvastatin 20 MG TAB PO (21:56)
[2023-03-22] VITALS (9 sets, daily range): BP systolic 114–146; BP diastolic 68–93; PULSE 65–91; RESP 2–19; TEMP 36.1–36.6; O2SAT 68–92
[2023-03-22 06:51] LABS: Abs Immature Grans 0.03 10^3/uL (0.0-0.06); Absolute Basophil Count 0.02 10^3/uL (0.0-0.2); Absolute Eosinophil Count 0.05 10^3/uL (0.0-0.7); Absolute Lymphocyte Count 1.99 10^3/uL (1.2-3.4); Absolute Monocyte Count 0.87 10^3/uL (0.1-0.8); Absolute Neutrophil Count 5.42 10^3/uL (1.2-6.7); Basophils % 0.2; Eosinophils % 0.6; HCT 51.4 % (40.0-50.0); HGB 16.5 g/dL (13.5-17.5); Immature Grans % 0.4; Lymphocytes % 23.7; MCH 28.7 pg (27.0-33.0); MCHC 32.1 % (32.0-36.0); MCV 90 fL (80-95); MPV 9.3 fL (8.0-11.0); Monocytes % 10.4; Neutrophils % 64.7; Platelet Count 232 10^3/uL (130-400); RBC 5.74 10^6/uL (4.36-5.78); RDW-SD 52.4 fL; WBC 8.38 10^3/uL (4.4-10.8)
[2023-03-22 07:24] LABS: Anion Gap 0.4 mmol/L (3-11); BUN 27 mg/dL (7-18); CO2 39.6 mmol/L (21.0-32.0); CREATININE 0.6 mg/dL (0.70-1.30); Calcium 9.2 mg/dL (8.5-10.1); Chloride 100 mmol/L (98-107); Estimated GFR 109.83 (mL/min/1.73m2); Glucose 123 mg/dL (74-106); Magnesium 1.9 mg/dL (1.8-2.4); Potassium 4.2 mmol/L (3.5-5.1); Sodium 140 mmol/L (136-145)
[2023-03-22 07:26] LABS: C-Reactive Protein < 0.05 mg/dL (0.0-0.3)
[2023-03-22] MEDS: Albuterol/Ipratropium 3 ML UPD VIAL IH ×3 (07:34→20:36)
[2023-03-22] MEDS: Budesonide/Formoterol 160/4.5 6 GM 60 PUFF INH IH ×2 (07:34→20:35)
[2023-03-22] MEDS: Umeclidinium 7 CAP INHALER 1 CAP IH (07:34)
[2023-03-22] MEDS: Cholecalciferol (Vitamin D3) 1,000 UNIT TAB 1000 UNITS PO (08:41)
[2023-03-22] MEDS: Acetaminophen 325 MG TAB PO ×4 (08:41→22:54)
[2023-03-22] MEDS: ARIPiprazole 5 MG TAB 20 MG PO (08:42)
[2023-03-22] MEDS: amLODIPine 5 MG TAB PO (08:42)
[2023-03-22] MEDS: predniSONE 20 MG TAB 40 MG PO (08:42)
[2023-03-22] MEDS: Cyanocobalamin 500 MCG TAB 5000 MCG PO (08:42)
[2023-03-22] MEDS: Omeprazole 20 MG CAPCR PO (08:42)
[2023-03-22] MEDS: Lisinopril 20 MG TAB PO ×2 (08:42→20:36)
[2023-03-22] MEDS: Normal Saline Flush 10 ML SYR IVP ×3 (08:43→11:45)
[2023-03-22] MEDS: Hydrocortisone 1% CR 30 GM TUBE TP ×2 (09:30→20:35)
--- NOTE | 2023-03-22 09:58 | W.PM.PROGNOT ---
Date of Service Date of service: 03/22/23 Time of Service: 09:58 Assessment and Plan Assessment and plan (1) Gram-negative bacteremia: Status: Acute Assessment and plan: GN cocci- maybe Heamophilus influenzae Continue levofloxacin until further results on blood culture: patient will have to go home on oral antibiotics, bioavailabilty for IV and oral levofloxacin are similar Repeated blood cultures showed no growth TTE: no vegetations. Obtain sputum cx , reordered (2) Acute on chronic respiratory failure with hypoxia and hypercapnia: Status: Acute Assessment and plan: 3l/min baseline O2 requirement during the day. BIPAP at night F/u on home BIPAP delivery prior to discharge (3) COPD exacerbation: Status: Acute Assessment and plan: As above and continue scheduled duonebs, on ICS-LABA On antibiotics. 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 Cleared for discharge home to [place] with HEAD SWAMPER ogoing support. No furhter S&S of suicidal ideation (5) Seborrheic dermatitis: Status: Acute Assessment and plan: Center of his chest noticed, no further complaint after trial of hydrocortisone cream, will continue (6) Sleep apnea: Status: Acute Assessment and plan: As above, Outpatient BIPAP to be delivered to assisted living facility( [facility]), needs confirmation before discharge BIPAP at night (7) Depression: Status: Chronic Assessment and plan: As above Continue home meds : depakote and aripiprazole. Evaluated by mental health FAHAD on this admission. No need at this time for tele-psych consult (8) Supplemental oxygen dependent: Status: Acute Assessment and plan: Continue 3L of O2 during the dayas per baseline and BiPAP( settings 12/5 FiO2 30%) at night; would like to start at 21:00. RT aware of plan for BIPAP (9) DVT prophylaxis: Status: Acute Assessment and plan: continue SC lovenox (10) Chronic back pain: Status: Acute Assessment and plan: Patient verbalized back pain to left sided T10-12 dermatomes, starting over 6 months ago, rating it at 8/10 when reproduced with palpation Will schedule acetaminoaphen Will start short 24-hour course of: ketorolac 15 mg IVP Q8, also considered oral ibuprofen and might be a later additional option as an OPT if this works Methocarbamol 750mg PO Q 8 PRN PT ordered to assist with evaluation for maintaining global strength and mobility (11) Discharge planning issues: Status: Acute Assessment and plan: CM to manage transfer to assisted living facility -Full code Palliative care consulted, code status maintained, please see note. Discussed with Dr. Whiting Subjective Subjective Patient reports: no new complaints, feels better, still having pain (8/10 chronic left lateral back), tolerating liquids well, tolerating a regular diet, voiding w/o difficulty, flatus and bowel movement; denies diarrhea, blood in stool, nausea, vomiting, shortness of breath or fever Exam Narrative Exam Narrative: Constitutional The patient is sitting in chair/ lying in bed comfortable and cooperative during the interview. The patient is well groomed without acute distress and has average body habitus/is obese/ is thin. HENMT: Head is atraumatic, normocephalic, no lymphadenopathy. Facial structures with normal appearance Eyes: Well aligned, intact ROM Neck: Normal ROM, no meningeal signs Neuro:alert and oriented to self, person, place time and situation. No neurological focal deficit, PERRLA Chest:Chest is symmetrical and normal appearance Resp: Normal respiratory pattern, speaks in full sentences, unlabored breathing, clear lung bilaterally Cardio: regular rhythm, S1, S2, no murmur, capillary refill<3 sec., bilateral radial and dorsalis pedis pulses are positive, palpable GI: Abdomen is large, not distended, soft and non tender, bowel sounds are present : Negative Costovertebral angle tenderness, no bladder distension Back/spine/Pelvis: No back tenderness, normal alignment Integumentary: No skin lesions or rash Extremities: strength 5/5 to bilateral lower and upper extremities Psych: RASS 0, congruent mood and normal affect; anxious at time. Objective Last Vital Signs Temp 36.6 C 03/22/23 05:07 Pulse 65 03/22/23 08:50 Resp 18 03/22/23 08:50 BP 132/85 03/22/23 08:50 Pulse Ox 91 L 03/22/23 08:50 Laboratory Results - last 24 hr 03/22/23 05:50 WBC 8.38 RBC 5.74 Hgb 16.5 Hct 51.4 H MCV 90 MCH 28.7 MCHC 32.1 RDW 16.0 H Plt Count 232 MPV 9.3 Immature Gran % 0.4 Neutrophils % 64.7 Lymphocytes % 23.7 Monocytes % 10.4 Eosinophils % 0.6 Basophils % 0.2 Nucleated RBC % 0.0 Absolute Neutrophils 5.42 Absolute Lymphocytes 1.99 Absolute Monocytes 0.87 H Absolute Eosinophils 0.05 Absolute Basophils 0.02 Sodium 140 Potassium 4.2 Chloride 100 Carbon Dioxide 39.6 H Anion Gap 0.4 L BUN 27 H Creatinine 0.6 L Est GFR (CKD-EPI 2020) 109.83 Glucose 123 H Calcium 9.2 Magnesium 1.9 C-Reactive Protein < 0.05 PAWSS Pt Consumed Any Amount of Alcohol Within the Last 30 days OR had positive VONNIE Upon Admission: No Time Spent with Patient Time Spent with Patient: >50 minutes Time was spent: preparing to see the patient(eg.review tests), ordering medications,tests, procedures, referring, communicating with other health point of care specialist, indepentently interpreting results, counseling the patient and care coordination
[2023-03-22] MEDS: Normal Saline 500 ML 100 ML IV (10:29)
[2023-03-22] MEDS: levoFLOXacin 750 MG/150 ML BAG 100 MG IVPB (10:30)
--- NOTE | 2023-03-22 10:39 | NUR.NOTE ---
Walked into pt's room with RN, pt sitting in bed with head propped up on arm. RN prompted pt if they were doing ok, to which pt responded that they were having a seizure. pt stated they had seizures often because of meds they were on. Took vitals. Nursing Note:
[2023-03-22] MEDS: Ketorolac 15 MG/ML VIAL IVP (11:45)
[2023-03-22] MEDS: Methocarbamol 750 MG TAB PO (11:45)
[2023-03-22] MEDS: Insulin Aspart 300 UNITS/3 ML PEN SC (17:32)
[2023-03-22] MEDS: Enoxaparin 40 MG/0.4 ML SYR SC (21:41)
[2023-03-22] MEDS: Oxybutynin-CR 5 MG TABCR 30 MG PO (21:42)
[2023-03-22] MEDS: Atorvastatin 20 MG TAB PO (21:42)
[2023-03-22] MEDS: Prazosin 1 MG CAP 3 MG PO (21:42)
[2023-03-22] MEDS: Divalproex Sodium 500 MG TAB.ER.24H PO (21:42)
[2023-03-23] VITALS (9 sets, daily range): BP systolic 112–149; BP diastolic 71–87; PULSE 63–90; RESP 5–19; TEMP 35.7–36.2; O2SAT 89–95
[2023-03-23] MEDS: Acetaminophen 325 MG TAB PO ×5 (04:01→21:27)
[2023-03-23 07:31] LABS: Abs Immature Grans 0.02 10^3/uL (0.0-0.06); Absolute Basophil Count 0.02 10^3/uL (0.0-0.2); Absolute Eosinophil Count 0.01 10^3/uL (0.0-0.7); Absolute Lymphocyte Count 1.52 10^3/uL (1.2-3.4); Absolute Monocyte Count 0.67 10^3/uL (0.1-0.8); Absolute Neutrophil Count 4.96 10^3/uL (1.2-6.7); Anion Gap -0.2 mmol/L (3-11); BUN 19 mg/dL (7-18); Basophils % 0.3; CO2 38.2 mmol/L (21.0-32.0); CREATININE 0.6 mg/dL (0.70-1.30); Calcium 8.8 mg/dL (8.5-10.1); Chloride 101 mmol/L (98-107); Eosinophils % 0.1; Estimated GFR 109.83 (mL/min/1.73m2); Glucose 143 mg/dL (74-106); HCT 54.5 % (40.0-50.0); HGB 17.1 g/dL (13.5-17.5); Immature Grans % 0.3; Lymphocytes % 21.1; MCH 28.2 pg (27.0-33.0); MCHC 31.4 % (32.0-36.0); MCV 90 fL (80-95); MPV 9.8 fL (8.0-11.0); Monocytes % 9.3; Neutrophils % 68.9; Platelet Count 225 10^3/uL (130-400); Potassium 4.2 mmol/L (3.5-5.1); RBC 6.07 10^6/uL (4.36-5.78); RDW 16.4 % (11.8-14.1); RDW-SD 53.8 fL; Sodium 139 mmol/L (136-145)
[2023-03-23] MEDS: Umeclidinium 7 CAP INHALER 1 CAP IH (08:05)
[2023-03-23] MEDS: Albuterol/Ipratropium 3 ML UPD VIAL IH ×3 (08:05→21:26)
[2023-03-23] MEDS: Budesonide/Formoterol 160/4.5 6 GM 60 PUFF INH IH ×2 (08:05→21:24)
[2023-03-23] MEDS: predniSONE 20 MG TAB 40 MG PO (08:53)
[2023-03-23] MEDS: Polyethylene Glycol 3350 17 GM PACKET PO (08:53)
[2023-03-23] MEDS: Hydrocortisone 1% CR 30 GM TUBE TP ×2 (08:53→21:25)
[2023-03-23] MEDS: Methocarbamol 750 MG TAB PO (08:53)
[2023-03-23] MEDS: amLODIPine 5 MG TAB PO (08:53)
[2023-03-23] MEDS: ARIPiprazole 5 MG TAB 20 MG PO (08:54)
[2023-03-23] MEDS: Lisinopril 20 MG TAB PO ×2 (08:54→21:27)
[2023-03-23] MEDS: Docusate Sodium 100 MG CAP PO ×2 (08:54→21:28)
[2023-03-23] MEDS: Omeprazole 20 MG CAPCR PO (08:54)
[2023-03-23] MEDS: Cholecalciferol (Vitamin D3) 1,000 UNIT TAB 1000 UNITS PO (08:54)
[2023-03-23] MEDS: Cyanocobalamin 500 MCG TAB 5000 MCG PO (08:54)
--- NOTE | 2023-03-23 09:35 | PT.INIE ---
PT Notes Visit Reasons: COPD Exacerbation/Suicidal ideation Inpatient Physical Therapy Evaluation Date: 03/23/23 Referring Doctor: Marcia Moya PT Orders: PT CONSULT: eval for assistive device Precautions: fall, standard Patient Profile/Admitting Diagnosis: Patient admitted from ED after presenting following a fall at home. Admitted for medical management of dehydration and COPD exacerbation. Patient on 3LPM supplemental O2 chronically. Social History/Home Situation: Resident of [facility]. Utilizes cane at baseline, but has walker that he uses for community ambulation. States that he has a portable compressor for oxygen. Working on getting CPAP for home. Equipment Owned/DME: cane, FWW, home oxygen and portable compressor Subjective: Nathan states that he has been walking around his room and through the halls on his own. States that he typically uses a cane, but hasn't been using a device here. He uses a FWW at home when going out into the community, which is infrequent. Reports approx 6 falls in the past year, occurring due to his legs giving out. Reports chronic neck and back pain, which are at baseline. Objective: General Observation: Resting in bed, with supplemental O2 at 4LPM via nasal cannula. Significant cervical protraction noted, with rounded shoulder, forward head posturing. Mental Status: A&Ox3. Pain: neck, mid back ROM: Right Upper Extremity: Grossly WFL Left Upper Extremity: Grossly WFL Right Lower Extremity: WFL Left Lower Extremity: WFL Strength: Right Upper Extremity: Shoulder flexion 4-/5. Biceps 4-/5. Triceps 4-/5. Left Upper Extremity: Shoulder flexion 4-/5. Biceps 4-/5. Triceps 4-/5. Right Lower Extremity: Hip flexion 4+/5. Quads 4+/5. Ankle DF 4/5. Left Lower Extremity: Hip flexion 4+/5. Quads 4+/5. Ankle DF 4/5. Bed Mobility/Transfers: supine-sit: independent sit-stand: independent stand-sit: independent Gait: Ambulates 25' with cane, SBA, and assistance for management of O2 tank. Minor path deviation during ambulation. Transitioned to use of FWW, where he ambulates 75' with SBA, assist for management of O2 tank, with improved gait mechanics. Requires cues for equipment management during turning to chair. Balance: Static Sitting: Good Dynamic Sitting: Good Static Standing: Good Dynamic Standing: Fair 4-Position Balance Test: 3/4 Small NICKOLAS: 10 seconds Partial Tandem: 10 seconds Full Tandem: 10 seconds Single Leg Stance: 3 seconds Special Tests: Mobility Limitations Standardized Measure [facility] AM-PAC 6 clicks Basic Mobility Inpatient Short Form: Raw Score: 23 CMS Score: 11% impairment Informed Consent/Education: Patient instructed in purpose of PT consult and plan of care. Assessment: Patient is a 62 year old male referred to physical therapy services for safety evaluation during acute care stay. Patient presents with gait impairments with h/o falls. Has both a cane and FWW at home, utilizing FWW only for community use. He'll benefit from PT intervention to address dynamic balance, and from more consistent use of FWW in home setting to reduce fall risk. Recommend HH PT upon discharge to assess safe utilization of device in home setting and address chronic impairments in dynamic balance. He currently demonstrates the following impairment level findings: 1. gait impairments 2. decreased activity tolerance 3. decreased UE/LE strength 4. chronic pain Impairments are contributing to the following functional limitations: 1. increased risk for falls 2. gait impairments Patient is assessed as Moderate 89004 complexity based on the following: History: as above Examination: functional limitations as above Presentation: evolving Decision Making: moderate complexity Goals: Goals X1 week 1. Supine-Sit : independent 2. Sit-Supine : independent 3. Sit-Stand : independent 4. Stand-Sit : independent 5. Bed-Chair : independent with FWW 6. Chair-Bed : independent with FWW 7. Gait : supervision with FWW x 150' Plan of Care/Treatment Plan: 1-2x/day, 7 days/week x 1 week. Plan of care has been reviewed with the MANAGER CIVIL providing the service under Physical Therapy direction. Initiate Physical Therapy intervention for strengthening, bed mobility, transfers, gait, stairs, balance training, use of assistive device. Will benefit from more consistent use of FWW, which he has at home. DISCHARGE RECOMMENDATIONS: Home with PT TREATMENT CODE/TIME: [id number] ([id number]) Coral Bonilla, PT, DPT [facility] PFS All Active Problems (Updated 03/22/23 @ 11:04 by Marcia Moya APRN) Chronic back pain (Acute) Gram-negative bacteremia (Acute) Discharge planning issues (Acute) DVT prophylaxis (Acute) COPD exacerbation (Acute) Acute on chronic respiratory failure with hypoxia and hypercapnia (Acute) COPD (chronic obstructive pulmonary disease) (Chronic) Suicide ideation (Acute) Seborrheic dermatitis (Acute) Sleep apnea (Acute) Depression (Chronic) Supplemental oxygen dependent (Acute) Medical History (Updated 03/22/23 @ 11:04 by Marcia Moya APRN) Pneumonia Acute hypoxemic respiratory failure Respiratory insufficiency Hallucinations Headache COVID-19 Altered mental status Septic shock Right bundle branch block Elevated troponin Elevated LFTs MICHAEL (acute kidney injury) Hyperkalemia Lactic acidosis COVID Respiratory failure with hypoxia and hypercapnia Nicotine dependence, cigarettes, uncomplicated Hypoxemia Tobacco dependence Obesity Incontinence of urine HTN (hypertension) Hypertension Tobacco abuse Bipolar 1 disorder Diabetes Obstructive sleep apnea Palliative care patient Obesity (BMI 30-39.9) Hyperlipidemia Schizophrenia
[2023-03-23] MEDS: Normal Saline Flush 10 ML SYR IVP ×2 (10:15→12:00)
[2023-03-23] MEDS: levoFLOXacin 750 MG/150 ML BAG 100 MG IVPB (10:15)
--- NOTE | 2023-03-23 16:08 | PGE_ITS ---
Date of Service Date of service: 03/23/23 Time of Service: 16:08 Assessment and Plan Assessment and plan (1) Gram-negative bacteremia: Status: Acute Assessment and plan: GN cocci- maybe Heamophilus influenzae Continue levofloxacin until further results on blood culture: patient will have to go home on oral antibiotics, bioavailabilty for IV and oral levofloxacin are similar , plan on 14 days, repeat cultures pending Repeated blood cultures showed no growth TTE: no vegetations. Obtain sputum cx , reordered (2) Acute on chronic respiratory failure with hypoxia and hypercapnia: Status: Acute Assessment and plan: 3l/min baseline O2 requirement during the day. BIPAP at night F/u on home BIPAP delivery prior to discharge (3) COPD exacerbation: Status: Acute Assessment and plan: As above and continue scheduled duonebs, on ICS-LABA On antibiotics. 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 Cleared for discharge home to [place] with SHOE RECONDITIONER ogoing support. No furhter S&S of suicidal ideation (5) Seborrheic dermatitis: Status: Acute Assessment and plan: Center of his chest noticed, no further complaint after trial of hydrocortisone cream, will continue (6) Sleep apnea: Status: Acute Assessment and plan: As above, Outpatient BIPAP to be delivered to assisted living facility( [facility]), needs confirmation before discharge BIPAP at night (7) Depression: Status: Chronic Assessment and plan: As above Continue home meds : depakote and aripiprazole. Evaluated by [facility] on this admission. No need at this time for tele-psych consult (8) Supplemental oxygen dependent: Status: Acute Assessment and plan: Continue 3L of O2 during the dayas per baseline and BiPAP( settings 12/5 FiO2 30%) at night; would like to start at 21:00. RT aware of plan for BIPAP (9) DVT prophylaxis: Status: Acute Assessment and plan: continue SC lovenox (10) Chronic back pain: Status: Acute Assessment and plan: Patient verbalized back pain to left sided T10-12 dermatomes, starting over 6 months ago, rating it at 8/10 when reproduced with palpation Will schedule acetaminoaphen Will start short 24-hour course of: ketorolac 15 mg IVP Q8, also considered oral ibuprofen and might be a later additional option as an OPT if this works Methocarbamol 750mg PO Q 8 PRN PT ordered to assist with evaluation for maintaining global strength and mobility (11) Discharge planning issues: Status: Acute Assessment and plan: CM to manage transfer to assisted living facility -Full code Palliative care consulted, code status maintained, please see note. Discussed with Dr. Whiting Subjective Subjective Patient reports: no new complaints, feels better, tolerating liquids well, tolerating a regular diet and afebrile Interval history since last seen: feels tired but likely at baseline, no suicidal ideation endorsed Exam Const General: comfortable, disheveled and ill appearing (older than stated age) chronically Nutritional Appearance: overweight Orientation: alert, awake and oriented x3 HENMT Head: normal to inspection, normocephalic and atraumatic Face and sinus: normal facial exam Mouth: oral mucosae normal Chest Chest: normal inspection of the chest Resp Effort & Inspection: normal respiratory effort Auscultation: diminished lung sounds bilaterally, no rhonchi and wheezes Cardio Rate: regular rate Rhythm: regular rhythm GI Inspection: normal to inspection Skin General skin exam: dry skin and turgor decreased Neuro General: patient alert, patient awake, patient oriented x3, tone normal and moves all extremities Extrem General: normal to inspection and full ROM Psych Appearance: disheveled Mental Status: mental status grossly normal Speech and Movement: speech and movement normal Mood: congruent mood Affect: blunted Attitude: cooperative Thought Process: normal Thought Content: normal Insight: limited Judgment: limited Objective Last Vital Signs Temp 36.2 C L 03/23/23 15:09 Pulse 67 03/23/23 15:09 Resp 18 03/23/23 15:09 BP 112/71 03/23/23 15:09 Pulse Ox 94 03/23/23 15:09 Laboratory Results - last 24 hr 03/23/23 06:35 WBC 7.20 RBC 6.07 H Hgb 17.1 Hct 54.5 H MCV 90 MCH 28.2 MCHC 31.4 L RDW 16.4 H Plt Count 225 MPV 9.8 Immature Gran % 0.3 Neutrophils % 68.9 Lymphocytes % 21.1 Monocytes % 9.3 Eosinophils % 0.1 Basophils % 0.3 Nucleated RBC % 0.0 Absolute Neutrophils 4.96 Absolute Lymphocytes 1.52 Absolute Monocytes 0.67 Absolute Eosinophils 0.01 Absolute Basophils 0.02 Sodium 139 Potassium 4.2 Chloride 101 Carbon Dioxide 38.2 H Anion Gap -0.2 L BUN 19 H Creatinine 0.6 L Est GFR (CKD-EPI 2020) 109.83 Glucose 143 H Calcium 8.8 Magnesium 2.0 PAWSS Pt Consumed Any Amount of Alcohol Within the Last 30 days OR had positive VONNIE Upon Admission: No Time Spent with Patient Time Spent with Patient: 35-49 minutes Time was spent: preparing to see the patient(eg.review tests), obtaining and/or reviewing separately otained hiistory, ordering medications,tests, procedures, indepentently interpreting results and counseling the patient
[2023-03-23] MEDS: Insulin Aspart 300 UNITS/3 ML PEN SC (17:27)
[2023-03-23] MEDS: Melatonin 3 MG TAB PO (21:27)
[2023-03-23] MEDS: Oxybutynin-CR 5 MG TABCR 30 MG PO (21:27)
[2023-03-23] MEDS: Prazosin 1 MG CAP 3 MG PO (21:27)
[2023-03-23] MEDS: Enoxaparin 40 MG/0.4 ML SYR SC (21:28)
[2023-03-23] MEDS: Atorvastatin 20 MG TAB PO (21:28)
[2023-03-23] MEDS: Divalproex Sodium 500 MG TAB.ER.24H PO (21:28)
[2023-03-24] VITALS (13 sets, daily range): BP systolic 124–143; BP diastolic 69–84; PULSE 53–70; RESP 2–24; TEMP 35.6–36.7; O2SAT 89–97
--- NOTE | 2023-03-24 | DI.US_ITS ---
Exam(s) US ABDOMEN LIMITED EXAM: US ABDOMEN LIMITED CLINICAL HISTORY: RUQ pain TECHNIQUE: Ultrasound abdomen performed using standard protocol. COMPARISON: No exams were available for comparison FINDINGS: PANCREAS: Normal where visualized. LIVER: Normal. Hepatopetal flow in the Portal Vein. The liver measures in 13 cm length. There is a 1 .2 x 1 x 1.3 cm septated simple cyst. GALLBLADDER: No evidence of cholelithiasis. No evidence of wall thickening. No pericholecystic fluid identified. BILIARY SYSTEM: Common bile duct measures < 7 mm. No intrahepatic biliary ductal dilation. VILLALBA'S SIGN: Negative. RIGHT KIDNEY: Kidney is normal in size. No evidence of renal calculi. No evidence of hydronephrosis. No renal mass or cyst identified. ASCITES: None seen. IMPRESSION: 1. 1.2 x 1.3 cm septated liver cyst. 2. No evidence of cholelithiasis or biliary ductal dilatation. DATA REPOSITORY:
[2023-03-24] MEDS: Acetaminophen 325 MG TAB PO ×6 (00:50→23:51)
[2023-03-24 07:03] LABS: Platelet Count 206 10^3/uL (130-400)
[2023-03-24] MEDS: Umeclidinium 7 CAP INHALER 1 CAP IH (07:50)
[2023-03-24] MEDS: Budesonide/Formoterol 160/4.5 6 GM 60 PUFF INH IH ×2 (07:50→20:06)
[2023-03-24] MEDS: Cyanocobalamin 500 MCG TAB 5000 MCG PO (07:51)
[2023-03-24] MEDS: Lisinopril 20 MG TAB PO ×2 (07:52→21:32)
[2023-03-24] MEDS: predniSONE 20 MG TAB 40 MG PO (07:52)
[2023-03-24] MEDS: ARIPiprazole 5 MG TAB 20 MG PO (07:52)
[2023-03-24] MEDS: Cholecalciferol (Vitamin D3) 1,000 UNIT TAB 1000 UNITS PO (07:53)
[2023-03-24] MEDS: Hydrocortisone 1% CR 30 GM TUBE TP ×3 (07:53→21:31)
[2023-03-24] MEDS: Omeprazole 20 MG CAPCR PO (07:53)
[2023-03-24] MEDS: amLODIPine 5 MG TAB PO (07:53)
[2023-03-24] MEDS: Normal Saline Flush 10 ML SYR IVP ×2 (07:53→21:30)
[2023-03-24] MEDS: Albuterol/Ipratropium 3 ML UPD VIAL IH ×4 (08:22→20:05)
[2023-03-24 08:53] LABS: Anion Gap -0.5 mmol/L (3-11); BUN 20 mg/dL (7-18); CO2 36.5 mmol/L (21.0-32.0); CREATININE 0.8 mg/dL (0.70-1.30); Calcium 8.4 mg/dL (8.5-10.1); Chloride 101 mmol/L (98-107); Estimated GFR 100.69 (mL/min/1.73m2); Glucose 161 mg/dL (74-106); Magnesium 1.7 mg/dL (1.8-2.4); Potassium 3.8 mmol/L (3.5-5.1); Sodium 137 mmol/L (136-145)
[2023-03-24 09:20] LABS: ALT 28 U/L (16-63); AST 13 U/L (15-37); Albumin 2.7 g/dL (3.4-5.0); Alkaline Phosphatase 68 U/L (46-116); Bilirubin, Direct 0.1 mg/dL (0.0-0.2); Bilirubin, Total 0.4 mg/dL (0.2-1.0); Lipase 17 U/L (16-77); Total Protein 5.4 g/dL (6.4-8.2)
[2023-03-24] MEDS: levoFLOXacin 750 MG/150 ML BAG 100 MG IVPB (10:23)
--- NOTE | 2023-03-24 11:49 | CMPROGNOTE_ITS ---
Date of service: 03/24/23 Time of Service: 11:49 Care Management Progress Note Progress Note Text Progress Note Text: S/O:Nathan was sitting up in a chair when CM met with him. He informed CM that he thought he would be discharged soon. Today Nathan complained of RUQ pain and an abdominal ultrasound was ordered. No evidence of cholelithiasis or biliary duct dilatation was noted. He is afebrile and his vital signs are stable. Nathan has been on 4L/min of nasal oxygen and is saturating between 89 and 95%. His Cpap has finally been ordered and delivery is expected this week. A: Nathan is a 62 year old man admitted on 03/19/23 with a COPD Exacerbation P:Nathan will likely be discharged home to [place] on a safety plan created in conjunction with [facility]. He will follow up with his community providers and supports through [employer] and transport with staff vs [facility]. CM will follow.
--- NOTE | 2023-03-24 12:28 | PGE_ITS ---
Date of Service Date of service: 03/24/23 Time of Service: 12:28 Assessment and Plan Assessment and plan (1) Right upper quadrant abdominal pain: Status: Acute Assessment and plan: vitals stable, afebrile, tolerating PO well. last BM documented on 03/20 but toilets independently and reporting daily BM. continue to monitor, no further testing at this point, seems better this afternoon and diet resumed. limited abdominal US with no explanation for symptoms: Exam(s) US ABDOMEN LIMITED EXAM: US ABDOMEN LIMITED CLINICAL HISTORY: RUQ pain TECHNIQUE: Ultrasound abdomen performed using standard protocol. COMPARISON: No exams were available for comparison FINDINGS: PANCREAS: Normal where visualized. LIVER: Normal. Hepatopetal flow in the Portal Vein. The liver measures in 13 cm length. There is a 1.2 x 1 x 1.3 cm septated simple cyst. GALLBLADDER: No evidence of cholelithiasis. No evidence of wall thickening. No pericholecystic fluid identified. BILIARY SYSTEM: Common bile duct measures < 7 mm. No intrahepatic biliary ductal dilation. VILLALBA'S SIGN: Negative. RIGHT KIDNEY: Kidney is normal in size. No evidence of renal calculi. No earnest dence of hydronephrosis. No renal mass or cyst identified. ASCITES: None seen. IMPRESSION: 1. 1.2 x 1.3 cm septated liver cyst. 2. No evidence of cholelithiasis or biliary ductal dilatation. (2) Gram-negative bacteremia: Status: Acute Assessment and plan: GN cocci- maybe Heamophilus influenzae Continue levofloxacin until further results on blood culture: patient will have to go home on oral antibiotics, bioavailabilty for IV and oral levofloxacin are similar , plan on 14 days, Repeated blood cultures showed no growth TTE: no vegetations. Obtain sputum cx , reordered (3) Acute on chronic respiratory failure with hypoxia and hypercapnia: Status: Acute Assessment and plan: 3l/min baseline O2 requirement during the day. BIPAP at night F/u on home BIPAP delivery prior to discharge (4) COPD exacerbation: Status: Acute Assessment and plan: stable As above and continue scheduled duonebs, on ICS-LABA On antibiotics. Continue prednisone for 5 days total (5) Suicide ideation: Status: Acute Assessment and plan: already a [employer] [employer] client, and was seen by mental health who created a safety care plan. Cleared for discharge home to [place] with [facility]ANCE SUPERVISOR ogoing support. No furhter S&S of suicidal ideation (6) Seborrheic dermatitis: Status: Acute Assessment and plan: Center of his chest noticed, no further complaint after trial of hydrocortisone cream, will continue (7) Sleep apnea: Status: Acute Assessment and plan: As above, Outpatient BIPAP to be delivered to assisted living facility( [facility]), needs confirmation before discharge BIPAP at night (8) Depression: Status: Chronic Assessment and plan: As above Continue home meds : depakote and aripiprazole. Evaluated by mental health [facility] on this admission. No need at this time for tele-psych consult (9) Supplemental oxygen dependent: Status: Acute Assessment and plan: Continue 3L of O2 during the dayas per baseline and BiPAP( settings 12/5 FiO2 30%) at night; would like to start at 21:00. RT aware of plan for BIPAP (10) DVT prophylaxis: Status: Acute Assessment and plan: continue SC lovenox (11) Chronic back pain: Status: Acute Assessment and plan: Patient verbalized back pain to left sided T10-12 dermatomes, starting over 6 months ago, rating it at 8/10 when reproduced with palpation Will schedule acetaminoaphen Will start short 24-hour course of: ketorolac 15 mg IVP Q8, also considered oral ibuprofen and might be a later additional option as an OPT if this works Methocarbamol 750mg PO Q 8 PRN PT ordered to assist with evaluation for maintaining global strength and mobility (12) Discharge planning issues: Status: Acute Assessment and plan: CM to manage transfer to assisted living facility -Full code Palliative care consulted, code status maintained, please see note. Discussed with Dr. Whiting Subjective Subjective Patient reports: tolerating liquids well, tolerating a regular diet, voiding w/o difficulty, bowel movement, shortness of breath and afebrile Interval history since last seen: reports of right upper abd pain today. no vomiting. Exam Const General: comfortable, disheveled and ill appearing (older than stated age) chronically Nutritional Appearance: overweight Orientation: alert, awake and oriented x3 HENMT Head: normal to inspection, normocephalic and atraumatic Face and sinus: normal facial exam Mouth: oral mucosae normal Chest Chest: normal inspection of the chest Resp Effort & Inspection: normal respiratory effort Auscultation: diminished lung sounds bilaterally, no rhonchi and wheezes Cardio Rate: regular rate Rhythm: regular rhythm GI Inspection: normal to inspection Skin General skin exam: dry skin and turgor decreased Neuro General: patient alert, patient awake, patient oriented x3, tone normal and moves all extremities Extrem General: normal to inspection and full ROM Psych Appearance: disheveled Mental Status: mental status grossly normal Speech and Movement: speech and movement normal Mood: congruent mood Affect: blunted Attitude: cooperative Thought Process: normal Thought Content: normal Insight: limited Judgment: limited Objective Last Vital Signs Temp 36.0 C L 03/24/23 07:37 Pulse 70 03/24/23 08:22 Resp 16 03/24/23 08:22 BP 130/76 03/24/23 07:37 Pulse Ox 93 03/24/23 08:22 Laboratory Results - last 24 hr 03/24/23 03/24/23 03/24/23 06:20 08:14 08:30 Plt Count 206 Sodium 137 Potassium 3.8 Chloride 101 Carbon Dioxide 36.5 H Anion Gap -0.5 L BUN 20 H Creatinine 0.8 Est GFR (CKD-EPI 2020) 100.69 Glucose 161 H Calcium 8.4 L Magnesium 1.7 L Total Bilirubin 0.4 Conjugated Bilirubin 0.1 AST 13 L ALT 28 Alkaline Phosphatase 68 Troponin I Cancelled Total Protein 5.4 L Albumin 2.7 L Lipase 17 03/24/23 11:15 Plt Count Sodium Potassium Chloride Carbon Dioxide Anion Gap BUN Creatinine Est GFR (CKD-EPI 2020) Glucose Calcium Magnesium Total Bilirubin Conjugated Bilirubin AST ALT Alkaline Phosphatase Troponin I Cancelled Total Protein Albumin Lipase PAWSS Pt Consumed Any Amount of Alcohol Within the Last 30 days OR had positive VONNIE Upon Admission: No Time Spent with Patient Time Spent with Patient: 35-49 minutes Time was spent: preparing to see the patient(eg.review tests), obtaining and/or reviewing separately otained hiistory, ordering medications,tests, procedures, indepentently interpreting results, counseling the patient and care coordination
--- NOTE | 2023-03-24 14:54 | PTTR_ITS ---
PT Notes Visit Reasons: COPD Exacerbation/Suicidal ideation Date: 03/24/23 Precautions: fall, standard SUBJECTIVE: Pt in bed, agreed to participating with therapy, did not have any compliant of pain. pt agreed to participate agin with therapy after lunch. OBJECTIVE: 4L O2 support, NC? PAIN: none BED MOBILITY/TRANSFERS? Supine-sit: I ? Sit-supine: I? Sit-stand: SBA? Stand-sit: SBA? Bed-Chair: Stand-pivot transfer without AD ? Chair-bed: Stand-pivot transfer without AD ? GAIT? Assistive Device: FWW? IV post management, portable O2 tank management? Weight bearing: Full Assist: SBA/CGA? Distance:? 150'x1 (am) 150'x1 (pm)? Deviation: Unremarkable ? ASSESSMENT:? Pt reports he feels tired but was happy to be walking, pt cue for purselip breathing to help with SOB, pt able to complete distance without taking standing or seated rest break. progression toward baseline level of function. PLAN: Continue with global strengthening and general conditioning for improved mobility and activity tolerance. TREATMENT CODE/TIME: [id number] 10mins (11:30-11:40am) [id number] 20mins (1:10- 130pm)
[2023-03-24] MEDS: Prazosin 1 MG CAP 3 MG PO (21:31)
[2023-03-24] MEDS: Divalproex Sodium 500 MG TAB.ER.24H PO (21:31)
[2023-03-24] MEDS: Atorvastatin 20 MG TAB PO (21:31)
[2023-03-24] MEDS: Enoxaparin 40 MG/0.4 ML SYR SC (21:31)
[2023-03-24] MEDS: Oxybutynin-CR 5 MG TABCR 30 MG PO (21:32)
[2023-03-24] MEDS: Insulin Aspart 300 UNITS/3 ML PEN SC (21:43)
[2023-03-25] MEDS: Acetaminophen 325 MG TAB PO ×3 (03:46→13:08)
[2023-03-25 03:57] VITALS: BP 132/82; PULSE 54; RESP 16; TEMP 36.4; O2SAT 96
[2023-03-25 04:44] VITALS: RESP 12; RESP 16; RESP 5
[2023-03-25 07:39] VITALS: BP 144/89; PULSE 64; RESP 16; TEMP 37.2; O2SAT 94
[2023-03-25 07:41] VITALS: PULSE 67; RESP 9; O2SAT 92
[2023-03-25] MEDS: Budesonide/Formoterol 160/4.5 6 GM 60 PUFF INH IH (07:41)
[2023-03-25] MEDS: Albuterol/Ipratropium 3 ML UPD VIAL IH ×2 (07:41→12:49)
[2023-03-25] MEDS: Umeclidinium 7 CAP INHALER 1 CAP IH (07:41)
[2023-03-25] MEDS: Hydrocortisone 1% CR 30 GM TUBE TP ×2 (09:01→13:49)
[2023-03-25] MEDS: ARIPiprazole 5 MG TAB 20 MG PO (09:02)
[2023-03-25] MEDS: Omeprazole 20 MG CAPCR PO (09:04)
[2023-03-25] MEDS: Lisinopril 20 MG TAB PO (09:04)
[2023-03-25] MEDS: amLODIPine 5 MG TAB PO (09:07)
[2023-03-25] MEDS: predniSONE 20 MG TAB 40 MG PO (09:07)
[2023-03-25] MEDS: Cyanocobalamin 500 MCG TAB 5000 MCG PO (09:08)
[2023-03-25] MEDS: Cholecalciferol (Vitamin D3) 1,000 UNIT TAB 1000 UNITS PO (09:08)
[2023-03-25] MEDS: Normal Saline 500 ML 30 ML IV (11:06)
--- NOTE | 2023-03-25 11:06 | PT.INTREAT ---
Date of service: 03/25/23 Time of Service: 10:56 PT Notes Visit Reasons: COPD Exacerbation/Suicidal ideation Inpatient Physical Therapy Treatment Note [facility] Date: 03/25/23 PRECAUTIONS: Fall, standard, activity as tolerated. SUBJECTIVE: Patient appears eager to participate in therapy, moves easily and quickly. OBJECTIVE: Supine in bed, agreeable to therapy. ? PAIN: none reported VITALS: ? Pre-Treatment: monitored by nursing staff ? Post-Treatment: 85% after >2 minutes rest? ? ? BED MOBILITY/TRANSFERS? Rolling L/R: independent Supine-sit: independent ? Sit-supine: independent ? Sit-stand: independent ? Stand-sit: independent ? Bed-Chair: SBA ? Chair-bed: SBA ? Therapeutic Exercises ([id number]): Direct one-on-one instruction in therapeutic exercises to develop strength, endurance, range of motion and flexibility. Ambulation ? Assistive Device: none? Weight bearing: full Assist: SBA ? Distance:? 350 feet ? Deviation: Patient removes nasal cannula, stating that the portable O2 tank is too much hassle. Gait unremarkable, however patient does become significantly short of breath with SaO2 dropping below 85%. Education provided on importance of wearing supplemental O2 to keep SaO2 above 88%, patient verbalizes understanding, stating that his portable concentrator works just fine he just has a distaste for the large hospital tanks. ? Provided skilled instruction in proper exercise performance Provided skilled manual cues to facilitate proper muscle recruitment and/or form. ASSESSMENT:? Patient impulsive when he experiences a perceived inconvenience. PLAN: Continue to educate re: keeping SaO2 above 88%, energy conservation techniques, appropriate pacing. TREATMENT CODE/TIME: 9 minutes beginning at 10:56
[2023-03-25] MEDS: Normal Saline Flush 10 ML SYR IVP ×2 (11:08→13:49)
[2023-03-25] MEDS: levoFLOXacin 750 MG/150 ML BAG 100 MG IVPB (11:09)
[2023-03-25 12:05] VITALS: BP 148/103; PULSE 63; RESP 17; TEMP 36.6; O2SAT 87
[2023-03-25] MEDS: Insulin Aspart 300 UNITS/3 ML PEN SC (12:29)
[2023-03-25 12:49] VITALS: PULSE 69; RESP 9; O2SAT 93
--- NOTE | 2023-03-25 14:12 | W.PM.DS.N ---
Date of service: 03/25/23 Time of Service: 14:12 DS: Diagnosis Discharge Diagnosis (1) Right upper quadrant abdominal pain: Status: Acute (2) Gram-negative bacteremia: Status: Acute (3) Acute on chronic respiratory failure with hypoxia and hypercapnia: Status: Acute (4) COPD exacerbation: Status: Acute (5) Suicide ideation: Status: Acute (6) Seborrheic dermatitis: Status: Acute (7) Sleep apnea: Status: Acute (8) Depression: Status: Chronic (9) Supplemental oxygen dependent: Status: Acute (10) Chronic back pain: Status: Acute Discharge Plan Disposition Patient Disposition: Home Condition: Stable Discharge Details Reason For Visit: COPD Exacerbation/Suicidal ideation Admit Date/Time: 03/19/23 20:13 Admit Provider: Barrington De La O Attending Provider: Barrington De La O Primary Care Provider: MIMI PEREZ Hospital Course Hospital Course: This is a 62-year-old male that lives at [facility] who presented to the emergency room after falling and striking the left side of his head. He was also endorsing suicidal thoughts. Work up in the emergency department showed acute hypercapnic respiratory failure. He was placed on BiPAP, portable chest x-ray showed no effusion or significant infiltrate. He was empirically started on ceftriaxone and azithromycin and given Solu-Medrol. He was admitted to the ICU for continued BiPAP therapy. It was discovered that he was not using his home CPAP/BiPAP as he still waiting for it be delivered. He was screened by mental health and cleared for outpatient management of his depression. One of his blood cultures grew gram negative cocco bacilli but was unable to identify due to non-viable organism. Repeat cultures showed no growth. Plan is to complete levaquin 2 week course. He remained hemodynamically stable and was afebrile. He was working with PT and safely reambulated. Respiratory therapy was able to secure bipap finally from [employer], set to be delivered on discharge date. He is stable for discharge to home with no new services. discharged by private vehicle. discussed with DR Henok Paulino Meds and New Rx's Prescriptions: New levofloxacin 750 mg tablet 750 mg PO DAILY Qty: 9 0RF Continued metformin 750 mg tablet extended release 24 hr 750 mg PO DAILY Incruse Ellipta 62.5 mcg/actuation blister with device 1 inh inhalation DAILY Hold Instructions: Pt Stopped/Never Started melatonin 3 mg capsule 3 mg PO HS PRN ipratropium-albuterol 0.5 mg-3 mg(2.5 mg base)/3 mL solution for nebulization 3 ml inhalation Q4H PRN (Reason: wheezing) Qty: 540 12RF atorvastatin 20 mg tablet 20 mg PO HS (DME) blood-glucose meter Misc See Rx Instructions .Route Rx Instructions: As directed (DME) Disposable Brief Jumbo X-Large Misc See Rx Instructions .Route Rx Instructions: As directed (DME) Blood Glucose Test Strip See Rx Instructions .Route Rx Instructions: As directed (DME) lancets [OneTouch UltraSoft Lancets] Misc See Rx Instructions .Route Rx Instructions: As directed (DME) oxygen and supplies 2 liters 0 .Route .MEDSUPPLY nystatin 100,000 unit/gram powder 1 applic topical BID oxybutynin chloride 15 mg tablet extended release 24hr 30 mg PO QHS Qty: 180 3RF budesonide-formoterol [Symbicort] 160-4.5 mcg/actuation HFA aerosol inhaler See Rx Instructions .ROUTE .COMPLEX Rx Instructions: 2 puffs BID prazosin 1 mg capsule 3 mg PO HS lisinopril 20 mg tablet 20 mg PO BID amlodipine 5 mg tablet 5 mg PO DAILY divalproex 500 mg tablet extended release 24 hr 500 mg PO HS cyanocobalamin (vitamin B-12) [Vitamin B-12] 5,000 mcg Tablet, Sublingual 5,000 mcg SUBLINGUAL DAILY cholecalciferol (vitamin D3) [Vitamin D3] 25 mcg (1,000 unit) capsule 1,000 unit PO DAILY albuterol sulfate 90 mcg/actuation HFA aerosol inhaler 2 inh inhalation Q6H PRN aripiprazole 20 mg tablet 20 mg PO DAILY prednisone 20 mg Tablet 40 mg PO DAILY Qty: 2 0RF Held azithromycin 250 mg tablet 250 mg PO DAILY Qty: 60 7RF Hold Instructions: hold until completed course of levofloxacin Discharge Instructions Instructions: Sleep Apnea (DC), BiPAP (GEN), Bacteremia (DC) Additional Instructions: use bipap as directed take all medication as directed Stand Alone Forms: Nursing Discharge Form Referrals: MIMI PEREZ, [facility] [Primary Care Provider] - (Please call and set up an Appointment in the next 2 weeks ) Activity:: Activity as Tolerated Equipment/Supplies:: BIPAP Diet:: As Tolerated Discharge Orders Discharge Orders: Discharge Order (Routine); Ordered 03/25/23 Ordered By: Rosaline Justice Discharge Data Discharge Date/Time-TO BE ENTERED AT DEPARTURE: 03/25/23 15:07 DS: Summary Time Spent with Patient providing and/or coordinating discharge services: Greater than 30 minutes Status at Discharge Functional status at discharge: independent ambulation Overall status at discharge: patient is progressing back to baseline Mental Status: mental status grossly normal Speech and Movement: speech and movement normal Mood: congruent mood Affect: blunted Quality:SDOH Health Related Social Needs: Health related social needs risk of homeless, food insecurity, transpo insecurity, material hardship, personal safety Referrals and interventions: lives at [facility], not entirely happy there but it is adequate Exam Psych Mental Status: mental status grossly normal Speech and Movement: speech and movement normal Mood: congruent mood Affect: blunted DS: Data Vitals/I&O Vitals and I&O: Vital Signs Temperature 36.6 C 03/25/23 12:05 Temperature Source Tympanic 03/25/23 12:05 Pulse 69 03/25/23 12:49 Pulse Rhythm Regular 03/25/23 08:42 Pulse 66 03/21/23 16:01 Respiratory Rate 17 03/25/23 12:05 Respiratory Effort Normal, Non-Labored 03/25/23 08:42 Respiratory Depth Normal 03/25/23 08:42 Respiratory Pattern Normal 03/25/23 08:42 Blood Pressure 148/103 H 03/25/23 12:05 Blood Pressure Mean 98 03/21/23 16:01 Blood Pressure Position Sitting 03/21/23 14:40 Pulse Oximetry 93 03/25/23 12:49 Oxygen Delivery Method Nasal Cannula 03/25/23 12:49 Oxygen Flow Rate 4 03/25/23 12:49 Fraction of Inspired Oxygen (FIO2) 30 03/25/23 04:44 Pain Level 5 03/25/23 12:05 Comment pt has nasal cannula off and has for about 30min, is eating now 03/25/23 12:05 Comment BIPAP 02/18 40% 03/20/23 00:01 Intake & Output 03/24/23 03/25/23 03/25/23 23:59 11:59 23:59 Intake Total 1070 / 1070 10 / 280 270 / 280 Balance 1070 / 1070 10 / 280 270 / 280 Weight 103.5 kg Intake: IV 160 / 160 10 / 160 150 / 160 Oral 910 / 910 120 / 120 Other: Urine Color Pale Yellow Urine Appearance Clear Clear Comment Pt reports regular voiding pattern Voiding Methods Toilet Toilet Data Completed and Pending Labs on day of discharge: Preliminary micro results at discharge 03/23/23 12:01 Sputum Culture - Preliminary Sputum Normal Lori 03/22/23 05:50 Blood Culture - Preliminary Blood NO GROWTH 72 HOURS 03/22/23 05:58 Blood Culture - Preliminary Blood NO GROWTH 72 HOURS PFSH All Active Problems (Updated 03/26/23 @ 00:05 by No ChainsLeanna HerBabyShowerANNA) Right upper quadrant abdominal pain (Acute) Chronic back pain (Acute) Gram-negative bacteremia (Acute) COPD exacerbation (Acute) Acute on chronic respiratory failure with hypoxia and hypercapnia (Acute) COPD (chronic obstructive pulmonary disease) (Chronic) Suicide ideation (Acute) Seborrheic dermatitis (Acute) Sleep apnea (Acute) Depression (Chronic) Supplemental oxygen dependent (Acute) Medical History (Updated 03/26/23 @ 00:05 by HANNA CAMARENA) Pneumonia Acute hypoxemic respiratory failure Respiratory insufficiency Hallucinations Headache COVID-19 Altered mental status Septic shock Right bundle branch block Elevated troponin Elevated LFTs MICHAEL (acute kidney injury) Hyperkalemia Lactic acidosis COVID Respiratory failure with hypoxia and hypercapnia Nicotine dependence, cigarettes, uncomplicated Hypoxemia Tobacco dependence Obesity Incontinence of urine HTN (hypertension) Hypertension Tobacco abuse Bipolar 1 disorder Diabetes Obstructive sleep apnea Palliative care patient Obesity (BMI 30-39.9) Hyperlipidemia Schizophrenia Family History Other Adopted Social History Smoking/Tobacco Use Status: Current every day Tobacco Type: cigarettes Smoking packs per day: 0 Smoking cigarettes per day: 0.0 Years smoked: 30 Smoking pack-years: 0.00 Tobacco: How many years used: 30 Smoking risk assessment performed?: Yes Alcohol Intake: former Drug use: Never Substance use type: does not use Caregiver/Support person: No Household members: none Housing: assisted living facility Number of Children: 0 Communication Needs: Hard of Hearing and Corrective Lenses Education Level: high school Do you need help understanding health information?: Always current occupation: disabled due to mental illness Pets and animals: No Current gender identity: male What is your relationship status?: never How often do you talk on the phone with friends or family?: never How often do you get together with friends or relatives?: never Panel score (0-1 are the most socially isolated patients): 0 What type of physical activity do you participate in: none and sedentary lifestyle Frequency: does not exercise Special mannie needs: No Seatbelt use: always Do you feel safe at home: No Do you feel safe in your relationship?: Yes Additional Social history: Pt states he is not taken care of at his [facility] Time Spent with Patient Time Spent with Patient: 45-69 minutes Time was spent: preparing to see the patient(eg.review tests), obtaining and/or reviewing separately otained hiistory, ordering medications,tests, procedures, referring, communicating with other health physician locums urgent care, indepentently interpreting results and care coordination
--- NOTE | 2023-03-25 14:40 | CMDISCH_ITS ---
LACE Index Scoring Tool Questions: Length of Stay (in days): 4 - 6 Was the patient admitted via the E.D.?: Yes Comorbidities: Diabetes w/o Complication and Chronic Pulmonary Disease E.D. Visits: 4 Answers: Total Score: 14 Risk of Readmission: High Risk Care Management Discharge Plan Reason for Hospitalization: COPD, SI Discharge Plan: Nathan will be discharged home to [place] on a safety plan created in conjunction with [facility]. He will follow up with his community providers and supports through [facility] and transport via [facility] coordinated by CM. Nathan has a new Cpap machine that is being delivered to [place] this afternoon. Patient/Family Education Needs: Review of discharge instructions, activity, limitations, follow up plan, discuss Ask Me Three Services Needed at Discharge: Oxygen Therapy SDOH Health Related Social Needs: Health related social needs risk of homeless, food ins ecurity, transpo insecurity, material hardship, personal safety Health related social needs: housing instability, housed, with risk of homelessness(Z59.811), food insecurity(Z59.41), transportation insecurity(Z59.82), material hardship(utilities)(Z59.87) and problem related to primary support group(Z63.9) Referrals and interventions: lives at [facility], not entirely happy there but it is adequate MH Services (Omit if N/A) Current MH Services: [facility]
== END 2023-03-25 15:07 | disposition home or self-care (01) | DRG 190 ==
LOC: ER 20:54 → ICU 03-20 09:21 → MS 03-21 16:52
PROVIDERS: Internal Medicine; Admitting Provider Family Medicine; Emergency Provider Physician Assistant; PCP Nurse Practitioner Family; Visit Provider Family Medicine
DX: J44.1 Chronic obstructive pulmonary disease with (acute) exacerbation (principal); J96.21 Acute and chronic respiratory failure with hypoxia; J96.22 Acute and chronic respiratory failure with hypercapnia; R45.851 Suicidal ideations; R78.81 Bacteremia; L21.9 Seborrheic dermatitis, unspecified; F32.A Depression, unspecified; Z99.81 Dependence on supplemental oxygen; M54.9 Dorsalgia, unspecified; G89.29 Other chronic pain; E86.0 Dehydration; Z91.199 Patient's noncompliance with other medical treatment and regimen due to unspecified reason; F17.210 Nicotine dependence, cigarettes, uncomplicated; G47.33 Obstructive sleep apnea (adult) (pediatric); W19.XXXA Unspecified fall, initial encounter; I45.10 Unspecified right bundle-branch block; R51.9 Headache, unspecified; E66.9 Obesity, unspecified; E11.9 Type 2 diabetes mellitus without complications; I10 Essential (primary) hypertension; E78.5 Hyperlipidemia, unspecified; K76.89 Other specified diseases of liver; F20.9 Schizophrenia, unspecified; Z79.84 Long term (current) use of oral hypoglycemic drugs
CPT/HCPCS: 00123; 36410; 36415; 80048; 80053; 80076; 80307; 82805; 83690; 84145; 85652; 87040; 87637; 94640; 96127; 96365; 96366; 96368; 96375; 97110; 97161; 97530; 99285; J1650; 70450; 71045; 76705; 80320; 80329; 81003; 81015; 83605; 83735; 83880; 84484; 85025; 85049; 86140; 87070; 87205; 93306; 94660; 94664; 94667; 94668; 94760; 99223; 99232; 99233; 99239; G0378; J0456; J0696; J1815; J1885; J1941; J1956; J2930; J3490; J7512; J7620

== ENCOUNTER 2023-04-30 15:11 | Inpatient (IN) | payer MEDICARE, MEDICAID, SELFPAY ==
[2023-04-30] VITALS (63 sets, daily range): BP systolic 93–139; BP diastolic 61–92; PULSE 57–97; RESP 5–23; TEMP 36.2–36.6; O2SAT 79–93
--- NOTE | 2023-04-30 15:15 | RT.EKG_ITS ---
APPROVED REPORT Exam: Resting ECG Reason for Exam: Chest Pain Patient Location: E HR:72 bpm ECG Measurements Heart Rate 72 AXIS UT 129 P 40 QRSd 145 QRS 87 QT 392 T -61 QTc 430 Conclusion Sinus rhythm...normal P axis, V-rate 60- 99 Right bundle branch block...QRSd>120, terminal axis(90,270) Abnormal T, consider ischemia, lateral leads...T <-0.20mV, I aVL V5 V6 sinus rhtyhm, noraml axis, RBBB, largely unchanged
--- NOTE | 2023-04-30 15:15 | DI.RAD_ITS ---
Exam(s) XR PORTABLE CHEST AP EXAM: XR PORTABLE CHEST AP CLINICAL HISTORY: copd. hypoxia, recent pneumonia TECHNIQUE: 2D digital imaging was performed. COMPARISON: CT CT CHEST WO from 06/04/[address] HEAD WO from 12/23/2022 CR XR CHEST 2V PA LATERAL from 12/27/2022 CR XR PORTABLE CHEST AP from 12/30/2022 CR XR PORTABLE CHEST AP from 02/19/2023 CR,XR XR PORTABLE CHEST AP from 03/19/2023 FINDINGS: Exam limited by under penetration at the lung bases. Limited by poor pulmonary inflation. Monitorin g leads overlie the chest. LUNGS: Increased densities at both lung bases. Findings may represent CHF versus pulmonary edema. No effusion visible HEART: Enlarged, unchanged. Pulmonary vascular prominence. AORTA: Normal diameter. BONES: Unremarkable for age. Soft tissues: Unremarkable. IMPRESSION: Limited exam. CHF versus bibasilar pneumonia. DATA REPOSITORY: RADIATION DOSE DELIVERED:
--- NOTE | 2023-04-30 15:33 | ED.GENADUL_ITS ---
HPI General Date/Time Provider Initiated Documentation: 04/30/23 15:14 . HPI Narrative: 63-year-old male history of COPD, recent admission for pneumonia hypoxemia discharged on BiPAP presents with altered mental status and hypoxia, per staff at care facility patient has not been wearing his BiPAP as prescribed. Related Data Home Medications Medication Instructions Recorded Confirmed metformin 750 mg tablet,extended 750 mg PO DAILY 03/13/21 04/30/23 release 24 hr blood sugar diagnostic (Blood 10/23/21 04/30/23 Glucose Test strips) blood-glucose meter 10/23/21 04/30/23 diaper,brief,adult,disposable 10/23/21 04/30/23 (Disposable Brief Jumbo X-Large) lancets (OneTouch UltraSoft 10/23/21 04/30/23 Lancets) nystatin 100,000 unit/gram topical 1 applic topical BID 10/23/21 04/30/23 powder oxygen and supplies 2 liters 10/23/21 04/30/23 umeclidinium 62.5 mcg/actuation 1 inh inhalation DAILY 02/05/22 04/30/23 blister powder for inhalation (Incruse Ellipta) budesonide-formoterol HFA 160 See Rx Instructions .Route .COMPLEX 04/12/22 04/30/23 mcg-4.5 mcg/actuation aerosol inhaler (Symbicort) ipratropium 0.5 mg-albuterol 3 mg 3 ml inhalation Q4H PRN wheezing 05/15/22 04/30/23 (2.5 mg base)/3 mL nebulization #540 mL soln melatonin 3 mg capsule 3 mg PO HS PRN 05/15/22 04/30/23 atorvastatin 20 mg tablet 20 mg PO HS 08/13/22 04/30/23 amlodipine 5 mg tablet 5 mg PO DAILY 12/23/22 04/30/23 cyanocobalamin (vitamin B-12) 5,000 mcg sublingual DAILY 12/23/22 04/30/23 5,000 mcg sublingual tablet (Vitamin B-12) divalproex 500 mg tablet,extended 500 mg PO HS 12/23/22 04/30/23 release 24 hr lisinopril 20 mg tablet 20 mg PO BID 12/23/22 04/30/23 prazosin 1 mg capsule 3 mg PO HS 12/23/22 04/30/23 azithromycin 250 mg tablet 250 mg PO DAILY #60 tabs 01/20/23 04/30/23 oxybutynin chloride 15 mg 30 mg (2 x 15 mg) PO QHS #180 tabs 01/20/23 04/30/23 tablet,extended release 24 hr albuterol sulfate 90 mcg/actuation 2 inh inhalation Q6H PRN 02/19/23 04/30/23 aerosol inhaler cholecalciferol (vitamin D3) 25 1,000 unit PO DAILY 02/19/23 04/30/23 mcg (1,000 unit) capsule (Vitamin D3) aripiprazole 20 mg tablet 20 mg PO DAILY 02/20/23 04/30/23 prednisone 20 mg tablet 40 mg (2 x 20 mg) PO DAILY #2 tabs 02/22/23 04/30/23 Previous Rx's Medication Instructions Recorded ipratropium 0.5 mg-albuterol 3 mg 3 ml inhalation Q4H PRN wheezing 05/15/22 (2.5 mg base)/3 mL nebulization #540 mL soln azithromycin 250 mg tablet 250 mg PO DAILY #60 tabs 01/20/23 oxybutynin chloride 15 mg 30 mg (2 x 15 mg) PO QHS #180 tabs 01/20/23 tablet,extended release 24 hr prednisone 20 mg tablet 40 mg (2 x 20 mg) PO DAILY #2 tabs 02/22/23 Allergies Allergy/AdvReac Type Severity Reaction Status Date / Time Penicillins Allergy Severe Anaphylaxis Unverified 04/30/23 15:57 dextromethorphan Allergy Mild Skin Rash Unverified 04/30/23 15:57 [From Dimetapp Cold-Congestion] diphenhydramine Allergy Mild Skin Rash Unverified 04/30/23 15:57 [From Dimetapp Cold-Congestion] guaifenesin Allergy Mild Skin Rash Unverified 04/30/23 15:57 [From Dimetapp Cold-Congestion] phenylephrine Allergy Mild Skin Rash Unverified 04/30/23 15:57 [From Dimetapp Cold-Congestion] pseudoephedrine Allergy Mild Skin Rash Unverified 04/30/23 15:57 [From Dimetapp Cold-Congestion] bupropion [From Wellbutrin] AdvReac Intermediate Other (See Unverified 04/30/23 15:57 Comment) General Stated Complaint: SOB SANTA: 2 Review of Systems Narrative: Review of Systems Constitutional: negative Eyes: negative ENT: negative Cardiovascular: negative Respiratory: Wheezing, hypoxemia Gastrointestinal: negative : negative Musculoskeletal: negative Skin: negative Neurologic: negative Psych: negative Exam Narrative Exam Narrative: Physical Examination General: Lethargic HEENT: normocephalic, atraumatic; PERRL, EOM intact, conjunctiva normal; no nasal discharge; dry oral mucosa Neck: supple, trachea midline; full ROM Chest: normal to inspection Respiratory: Quiet lung sounds expiratory wheeze bilaterally Cardiac: regular rate, regular rhythm, S1S2 intact, no murmurs rubs or gallops GI: abdomen soft, non-tender, non-distended; no palpable mass or hepatosplenomegaly Skin: no lesions, rashes or trauma appreciated; dry Neuro: Opening eyes and moving to verbal commands however minimally interactive; nonfocal Extremities: No peripheral edema Course Vital Signs Vital signs: Vital Signs Temperature 36.6 C 04/30/23 15:19 Pulse 85 04/30/23 15:19 Respiratory Rate 18 04/30/23 15:19 Blood Pressure 135/87 04/30/23 15:19 Pulse Oximetry 83 L 04/30/23 15:19 Temperature 36.6 C 04/30/23 15:19 Temperature Source Oral 04/30/23 15:19 Pulse 85 04/30/23 15:19 Respiratory Rate 18 04/30/23 15:19 Blood Pressure 135/87 04/30/23 15:19 Blood Pressure Position Supine 04/30/23 15:19 Pulse Oximetry 83 L 04/30/23 15:19 Oxygen Delivery Method Nasal Cannula 04/30/23 15:19 Oxygen Flow Rate 3 04/30/23 15:19 Medical Decision Making 63-year-old male history of COPD, hypoxic and hypercapnic respiratory failure, recent pneumonia, discharged to care facility with BiPAP, has not been compliant with his BiPAP at home, presents with altered mental status hypoxia. Likely component of CO2 narcosis leading to AMS, quiet lung sounds with expiratory wheeze bilaterally, placed on nonrebreather on arrival, transition to BiPAP, DuoNeb steroids chest x-ray labs admission likely. Consider hypercapnia versus pneumonia was also consider pleural effusion versus pneumothorax low suspicion for ACS PE CVA intracerebral hemorrhage seizure or toxicologic process. 16: 45 much more active and interactive after being placed on BiPAP. Patient actually tried to rip his own BiPAP off. Was instructed to keep BiPAP on. Will reassess mental status VBG and adjust BiPAP settings. 18: 54 given BiPAP requirements persisting patient admitted to ICU Quality:SDOH Health Related Social Needs: Health related social needs risk of homeless, food ins ecurity, transpo insecurity, material hardship, personal safety Critical Care Time Critical Care Time Critical Care Time: Yes Total Critical Care Time: 30 Attestation: Critical care time spent interpreting imaging interpreting labs assessing patient administering BiPAP to patient with hypercapnic respiratory failure requiring ICU level admission [facility] All Active Problems (Updated 04/30/23 @ 18:55 by Omar Mcclure MD) Acute respiratory failure with hypoxia and hypercarbia (Acute) Right upper quadrant abdominal pain (Acute) Chronic back pain (Acute) Gram-negative bacteremia (Acute) COPD exacerbation (Acute) Acute on chronic respiratory failure with hypoxia and hypercapnia (Acute) COPD (chronic obstructive pulmonary disease) (Chronic) Suicide ideation (Acute) Seborrheic dermatitis (Acute) Sleep apnea (Acute) Depression (Chronic) Supplemental oxygen dependent (Acute) Medical History (Updated 04/30/23 @ 18:55 by Omar Mcclure MD) Pneumonia Acute hypoxemic respiratory failure Respiratory insufficiency Hallucinations Headache COVID-19 Altered mental status Septic shock Right bundle branch block Elevated troponin Elevated LFTs MICHAEL (acute kidney injury) Hyperkalemia Lactic acidosis COVID Respiratory failure with hypoxia and hypercapnia Nicotine dependence, cigarettes, uncomplicated Hypoxemia Tobacco dependence Obesity Incontinence of urine HTN (hypertension) Hypertension Tobacco abuse Bipolar 1 disorder Diabetes Obstructive sleep apnea Palliative care patient Obesity (BMI 30-39.9) Hyperlipidemia Schizophrenia Family History Other Adopted Social History Smoking/Tobacco Use Status: Current every day Tobacco Type: cigarettes Smoking packs per day: 0 Smoking cigarettes per day: 0.0 Years smoked: 30 Smoking pack- years: 0.00 Tobacco: How many years used: 30 Smoking risk assessment performed?: Yes Alcohol Intake: former Drug use: Never Substance use type: does not use Caregiver/Support person: No Household members: none Housing: assisted living facility Number of Children: 0 Communication Needs: Hard of Hearing and Corrective Lenses Education Level: high school Do you need help understanding health information?: Always current occupation: disabled due to mental illness Pets and animals: No Current gender identity: male What is your relationship status?: never How often do you talk on the phone with friends or family?: never How often do you get together with friends or relatives?: never Panel score (0-1 are the most socially isolated patients): 0 What type of physical activity do you participate in: none and sedentary lifestyle Frequency: does not exercise Special mannie needs: No Seatbelt use: always Do you feel safe at home: No Do you feel safe in your relationship?: Yes Additional Social history: Pt states he is not taken care of at his [facility] Discharge Plan Disposition Patient Disposition: Admit to [facility] Condition: Stable Discharge Details Chief Complaint: SOB Clinical Impression: Acute respiratory failure with hypoxia and hypercarbia Primary Care Provider: MIMI PEREZ ED Provider: Omar Mcclure Home Meds and New Rx's Prescriptions: No Action metformin 750 mg tablet extended release 24 hr 750 mg PO DAILY Incruse Ellipta 62.5 mcg/actuation blister with device 1 inh inhalation DAILY Hold Instructions: Pt Stopped/Never Started melatonin 3 mg capsule 3 mg PO HS PRN ipratropium-albuterol 0.5 mg-3 mg(2.5 mg base)/3 mL solution for nebulization 3 ml inhalation Q4H PRN (Reason: wheezing) Qty: 540 12RF atorvastatin 20 mg tablet 20 mg PO HS azithromycin 250 mg tablet 250 mg PO DAILY Qty: 60 7RF Hold Instructions: hold until completed course of levofloxacin (DME) blood-glucose meter Misc See Rx Instructions .Route Rx Instructions: As directed (DME) Disposable Brief Jumbo X-Large Misc See Rx Instructions .Route Rx Instructions: As directed (DME) Blood Glucose Test Strip See Rx Instructions .Route Rx Instructions: As directed (DME) lancets [OneTouch UltraSoft Lancets] Misc See Rx Instructions .Route Rx Instructions: As directed (DME) oxygen and supplies 2 liters 0 .Route .MEDSUPPLY nystatin 100,000 unit/gram powder 1 applic topical BID oxybutynin chloride 15 mg tablet extended release 24hr 30 mg PO QHS Qty: 180 3RF budesonide-formoterol [Symbicort] 160-4.5 mcg/actuation HFA aerosol inhaler See Rx Instructions .ROUTE .COMPLEX Rx Instructions: 2 puffs BID prazosin 1 mg capsule 3 mg PO HS lisinopril 20 mg tablet 20 mg PO BID amlodipine 5 mg tablet 5 mg PO DAILY divalproex 500 mg tablet extended release 24 hr 500 mg PO HS cyanocobalamin (vitamin B-12) [Vitamin B-12] 5,000 mcg Tablet, Sublingual 5,000 mcg SUBLINGUAL DAILY cholecalciferol (vitamin D3) [Vitamin D3] 25 mcg (1,000 unit) capsule 1,000 unit PO DAILY albuterol sulfate 90 mcg/actuation HFA aerosol inhaler 2 inh inhalation Q6H PRN aripiprazole 20 mg tablet 20 mg PO DAILY prednisone 20 mg Tablet 40 mg PO DAILY Qty: 2 0RF
[2023-04-30 15:37] LABS: BE (Venous) 16 mmol/L (-2-3); HCO3 (Venous) 42 mmol/L (23-28); O2 Sat (Venous) 82 %; TCO2 (Venous) 37 mmol/L (24-29); pH (Venous) 7.32 (7.31-7.41); pO2 (Venous) 50 mmHg
[2023-04-30 15:39] LABS: Abs Immature Grans 0.04 10^3/uL (0.0-0.06); Absolute Basophil Count 0.03 10^3/uL (0.0-0.2); Absolute Eosinophil Count 0.11 10^3/uL (0.0-0.7); Absolute Lymphocyte Count 1.57 10^3/uL (1.2-3.4); Absolute Monocyte Count 0.77 10^3/uL (0.1-0.8); Absolute Neutrophil Count 4.16 10^3/uL (1.2-6.7); Basophils % 0.4; Eosinophils % 1.6; HCT 56.6 % (40.0-50.0); Immature Grans % 0.6; Lymphocytes % 23.5; MCH 28.5 pg (27.0-33.0); MCV 95 fL (80-95); MPV 9.3 fL (8.0-11.0); Monocytes % 11.5; Neutrophils % 62.4; Platelet Count 227 10^3/uL (130-400); RBC 5.97 10^6/uL (4.36-5.78); RDW 18.6 % (11.8-14.1); RDW-SD 62.5 fL; WBC 6.68 10^3/uL (4.4-10.8)
[2023-04-30 15:40] LABS: pCO2 (Venous) 82 mmHg (41-51)
[2023-04-30] MEDS: Dexamethasone 10 MG/ML VIAL IVP (15:43)
[2023-04-30] MEDS: Albuterol/Ipratropium 3 ML UPD VIAL 9 ML UPD (15:52)
[2023-04-30 15:57] LABS: INR 1.2 (0.9-1.1); PTT Activated 28.3 sec (23.6-32.8); Prothrombin Time 11.5 sec (9.1-11.1)
[2023-04-30 16:00] LABS: ALT 16 U/L (16-63); AST 18 U/L (15-37); Albumin 3.1 g/dL (3.4-5.0); Alkaline Phosphatase 76 U/L (46-116); Anion Gap 3.6 mmol/L (3-11); BUN 23 mg/dL (7-18); Bilirubin, Total 0.4 mg/dL (0.2-1.0); CO2 39.4 mmol/L (21.0-32.0); CREATININE 0.8 mg/dL (0.70-1.30); Calcium 8.6 mg/dL (8.5-10.1); Chloride 104 mmol/L (98-107); Estimated GFR 100.06 (mL/min/1.73m2); Glucose 84 mg/dL (74-106); Potassium 4.8 mmol/L (3.5-5.1); Sodium 147 mmol/L (136-145); Total Protein 6.4 g/dL (6.4-8.2)
[2023-04-30 16:51] LABS: COVID-19 PCR Negative (Negative); Influenza A PCR Negative (Negative); Influenza B PCR Negative (Negative); RSV PCR Negative (Negative)
[2023-04-30 16:53] LABS: Source Nasopharynx
[2023-04-30 18:20] LABS: BE (Venous) 15 mmol/L (-2-3); HCO3 (Venous) 41 mmol/L (23-28); O2 Sat (Venous) 80 %; TCO2 (Venous) 36 mmol/L (24-29); pH (Venous) 7.33 (7.31-7.41); pO2 (Venous) 48 mmHg
[2023-04-30 18:22] LABS: pCO2 (Venous) 78 mmHg (41-51)
--- NOTE | 2023-04-30 19:08 | HPE_ITS ---
Date of service: 04/30/23 Time of Service: 21:18 Assessment and Plan Assessment and plan (1) Acute on chronic respiratory failure with hypoxia and hypercapnia: Status: Acute Assessment and plan: BIPAP, DuoNeb nebulizers, continue his LAMA, LABA/ICS and prednisone, evaluate and treat for CHF, diuretics, check troponin I levles, no evidence for pneumonia; therefore will hold on antibiotics. He should have completed his Levaquin for the single blood culture that grew gram negative coccobacilli. Resume his azithromycin which he had been on maintenance. Critical care time spent interviewing and examining the patient, reviewing studies, discussing case with patient's nurse and consulting physicians was 60 minutes outside of time spent performing POCUS exam (2) COPD (chronic obstructive pulmonary disease): Status: Chronic Assessment and plan: as above Qualifiers: COPD type: COPD with acute exacerbation Qualified Code(s): J44.1 - Chronic obstructive pulmonary disease with (acute) exacerbation (3) Cor pulmonale (chronic): Status: Acute Assessment and plan: See echo report 03/21/23: he has mild concentric LVH, preserved LVEF 65% w/ no RWMA, grade 2 diastolic HF, but w/ dilate RV w/ apical hypokinesis and severe PHTN (estm RVSP 69 mm) and moderately dilated RA, moderate TR and mod. ND. His exam and POCUS exam are consistent w/ acute on chronic CHF d/t cor pulmonale and diastolic HF. I will put him on iv lasix and get formal echo tomorrow (4) Elevated troponin I level: Status: Acute Assessment and plan: will give him aspirin and increase his atorvastatin and get formal echo. I have chosen not to heparinze as he did not have any new EKG changes to suggest plaque rupture and bedside POCUS did not reveal any LV RWMA however he has mild to moderate RV dysfunction but he has had known cor pulmonale from his JEREMIAS and COPD. I think this is demand ischemia from his hypoxia. will trend his troponin levels (5) Sleep apnea: Status: Acute Assessment and plan: BIAP as above Qualifiers: Sleep apnea type: obstructive Qualified Code(s): G47.33 - Obstructive sleep apnea (adult) (pediatric) (6) Nicotine dependence, cigarettes, uncomplicated: Assessment and plan: nicoderm patch (7) Bipolar 1 disorder: Assessment and plan: continue abilify (8) Diabetes: Assessment and plan: continue his metformin and add low dose Novolog sliding scale; may need to add NPH for coverage of his prednisone. 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 insulin use: without custodial use Diabetes mellitus type: t ype 2 Qualified Code(s): E11.9 - Type 2 diabetes mellitus without complications (9) Chronic heart failure with preserved ejection fraction (HFpEF): Status: Acute Assessment and plan: as above History of Present Illness History of Present Illness Chief Complaint: lethargic and short of breath N arrative: 63 yr old male w/ PMH of COPD requiring home oxygen and BIPAP, type II dm, cor pulmonale (see echo report 03/21/23) and live in a [facility] skilled nursing, [place], [place] who reportedly is non-compliant about using his BIPAP and he was hospitalized from 03/19-03/25/23 for similar problem of acute on chronic respiratory failure w/ hypoxemia and hypercapnea, but had sustained a fall w/ closed head injury, workup was negative on the closed head injury but he had suicidal ideation but was cleared by mental health and workup included one blood culture that came back positive for gram negative coccobacilli whereas other cultures were no growth. CXR suggested small infiltrated in medial RLL, patient was dc on 2 weeks of Levaquin. He now presents to the ED w/ increased lethargy and hypoxemia ( SPO2 83% on 3 lpm NC on arrival). Evaluation in the ED included labs, CXR, EKG (SR w/ RBBB and concordant T w inversion). VBG pCO2 78 W/ pH 7.33, pO2 48, CMP remarkable for CO2 39.4, CBC w/ polycythemia Hb 17 gm but no leukocytosis or bandemia; Fluvid PCR negative for SARS-Cov2, influenza or RSV. CXR CHF vs bibasilar pneumonia. (I reviewed the film and favor CHF) Treatment in the ED included DuoNeb treatments and dexamethasone and BIPAP. He is now admitted for treatment of his COPD and chronic hypercapneic and hypoxemic RF. Dr. Eulalio steves overnight ICU for BIPAP, steroids and nebulizer bronchodilators. Review of Systems Unobtainable due to mental status (patient lethargic but arouseable, not able to maintain concentration) PFSH All Active Problems (Updated 04/30/23 @ 23:19 by Konrad Sampson MD) Elevated troponin I level (Acute) Chronic heart failure with preserved ejection fraction (HFpEF) (Acute) Cor pulmonale (chronic) (Acute) Acute respiratory failure with hypoxia and hypercarbia (Acute) Right upper quadrant abdominal pain (Acute) Chronic back pain (Acute) Gram-negative bacteremia (Acute) COPD exacerbation (Acute) Acute on chronic respiratory failure with hypoxia and hypercapnia (Acute) COPD (chronic obstructive pulmonary disease) (Chronic) Suicide ideation (Acute) Seborrheic dermatitis (Acute) Sleep apnea (Acute) Depression (Chronic) Supplemental oxygen dependent (Acute) Medical History Pneumonia Acute hypoxemic respiratory failure Respiratory insufficiency Hallucinations Headache COVID-19 Altered mental status Septic shock Right bundle branch block Elevated troponin Elevated LFTs MICHAEL (acute kidney injury) Hyperkalemia Lactic acidosis COVID Respiratory failure with hypoxia and hypercapnia Nicotine dependence, cigarettes, uncomplicated Hypoxemia Tobacco dependence Obesity Incontinence of urine HTN (hypertension) Hypertension Tobacco abuse Bipolar 1 disorder Diabetes Obstructive sleep apnea Palliative care patient Obesity (BMI 30-39.9) Hyperlipidemia Schizophrenia Family History Other Adopted Social History Smoking/Tobacco Use Status: Current every day Tobacco Type: cigarettes Smoking packs per day: 0 Smoking cigarettes per day: 0.0 Years smoked: 30 Smoking pack- years: 0.00 Tobacco: How many years used: 30 Smoking risk assessment performed?: Yes Alcohol Intake: former Drug use: Never Substance use type: does not use Caregiver/Support person: No Household members: none Housing: assisted living facility Number of Children: 0 Communication Needs: Hard of Hearing and Corrective Lenses Education Level: high school Do you need help understanding health information?: Always current occupation: disabled due to mental illness Pets and animals: No Current gender identity: male What is your relationship status?: never How often do you talk on the phone with friends or family?: never How often do you get together with friends or relatives?: never Panel score (0-1 are the most socially isolated patients): 0 What type of physical activity do you participate in: none and sedentary lifestyle Frequency: does not exercise Special mannie needs: No Seatbelt use: always Do you feel safe at home: No Do you feel safe in your relationship?: Yes Additional Social history: Pt states he is not taken care of at his [facility] Meds Allergies and Home Medications Allergies Allergy/AdvReac Type Severity Reaction Status Date / Time Penicillins Allergy Severe Anaphylaxis Unverified 04/30/23 15:57 dextromethorphan Allergy Mild Skin Rash Unverified 04/30/23 15:57 [From Dimetapp Cold-Congestion] diphenhydramine Allergy Mild Skin Rash Unverified 04/30/23 15:57 [From Dimetapp Cold-Congestion] guaifenesin Allergy Mild Skin Rash Unverified 04/30/23 15:57 [From Dimetapp Cold-Congestion] phenylephrine Allergy Mild Skin Rash Unverified 04/30/23 15:57 [From Dimetapp Cold-Congestion] pseudoephedrine Allergy Mild Skin Rash Unverified 04/30/23 15:57 [From Dimetapp Cold-Congestion] bupropion [From Wellbutrin] AdvReac Intermediate Other (See Unverified 04/30/23 15:57 Comment) Home Medications Medication Instructions Recorded Confirmed Type metformin 750 mg tablet,extended 750 mg PO DAILY 03/13/21 04/30/23 History release 24 hr blood sugar diagnostic (Blood 10/23/21 04/30/23 History Glucose Test strips) blood-glucose meter 10/23/21 04/30/23 History diaper,brief,adult,disposable 10/23/21 04/30/23 History (Disposable Brief Jumbo X-Large) lancets (OneTouch UltraSoft 10/23/21 04/30/23 History Lancets) nystatin 100,000 unit/gram topical 1 applic topical BID 10/23/21 04/30/23 History powder oxygen and supplies 2 liters 10/23/21 04/30/23 History umeclidinium 62.5 mcg/actuation 1 inh inhalation DAILY 02/05/22 04/30/23 History blister powder for inhalation (Incruse Ellipta) budesonide-formoterol HFA 160 See Rx Instructions .Route .COMPLEX 04/12/22 04/30/23 History mcg-4.5 mcg/actuation aerosol inhaler (Symbicort) ipratropium 0.5 mg-albuterol 3 mg 3 ml inhalation Q4H PRN wheezing 05/15/22 04/30/23 Rx (2.5 mg base)/3 mL nebulization #540 mL soln melatonin 3 mg capsule 3 mg PO HS PRN 05/15/22 04/30/23 History atorvastatin 20 mg tablet 20 mg PO HS 08/13/22 04/30/23 History amlodipine 5 mg tablet 5 mg PO DAILY 12/23/22 04/30/23 History cyanocobalamin (vitamin B-12) 5,000 mcg sublingual DAILY 12/23/22 04/30/23 History 5,000 mcg sublingual tablet (Vitamin B-12) divalproex 500 mg tablet,extended 500 mg PO HS 12/23/22 04/30/23 History release 24 hr lisinopril 20 mg tablet 20 mg PO BID 12/23/22 04/30/23 History prazosin 1 mg capsule 3 mg PO HS 12/23/22 04/30/23 History azithromycin 250 mg tablet 250 mg PO DAILY #60 tabs 01/20/23 04/30/23 Rx oxybutynin chloride 15 mg 30 mg (2 x 15 mg) PO QHS #180 tabs 01/20/23 04/30/23 Rx tablet,extended release 24 hr albuterol sulfate 90 mcg/actuation 2 inh inhalation Q6H PRN 02/19/23 04/30/23 History aerosol inhaler cholecalciferol (vitamin D3) 25 1,000 unit PO DAILY 02/19/23 04/30/23 History mcg (1,000 unit) capsule (Vitamin D3) aripiprazole 20 mg tablet 20 mg PO DAILY 02/20/23 04/30/23 History prednisone 20 mg tablet 40 mg (2 x 20 mg) PO DAILY #2 tabs 02/22/23 04/30/23 Rx Exam Narrative Exam Narrative: Morbidly obese white male lying in bed in no acute distress he is lethargic but arousable not able to sustain attention lung Joanna to get an adequate history from him. When asked if he has had chest pain he nodded yes when asked if he is having chest pain now he says no however when asked if he is having any shortness of breath he did not commit to 1 way or another. HEENT is unremarkable Neck is obese supple nontender he has moderate JVD usp up the sternocleidomastoid muscle towards the jaw. Positive HJR normal carotid pulses no adenopathy Lungs are clear anteriorly but posteriorly has bibasilar rales no rhonchi or wheezing. Heart is regular with distant heart tones no murmur rub no palpable thrill no gallops. Abdomen obese soft nontender no palpable organomegaly no bruits Lower extremities no pitting edema or cyanosis feet are cool but he has palpable pedal pulses no open sores Neurologic exam no focal motor deficits no focal sensory deficits is difficult to assess for cranial nerve exam as patient cannot maintain attention long enough but he has no obvious facial asymmetry speech does not sound dysarthric extraocular motions intact Results Labs 04/30/23 15:30 04/30/23 15:30 Labs: Laboratory Results - last 24 hr 04/30/23 04/30/23 04/30/23 15:30 16:08 18:17 WBC 6.68 RBC 5.97 H Hgb 17.0 Hct 56.6 H MCV 95 MCH 28.5 MCHC 30.0 L RDW 18.6 H Plt Count 227 MPV 9.3 Immature Gran % 0.6 Neutrophils % 62.4 Lymphocytes % 23.5 Monocytes % 11.5 Eosinophils % 1.6 Basophils % 0.4 Nucleated RBC % 0.0 Absolute Neutrophils 4.16 Absolute Lymphocytes 1.57 Absolute Monocytes 0.77 Absolute Eosinophils 0.11 Absolute Basophils 0.03 PT 11.5 H INR 1.2 H APTT 28.3 VBG pH 7.32 7.33 VBG pCO2 82 H* 78 H* VBG pO2 50 48 VBG HCO3 42 H 41 H VBG Total CO2 37 H 36 H VBG O2 Saturation 82 80 VBG Base Excess 16 H 15 H Sodium 147 H Potassium 4.8 Chloride 104 Carbon Dioxide 39.4 H Anion Gap 3.6 BUN 23 H Creatinine 0.8 Est GFR (CKD-EPI 2020) 100.06 Glucose 84 Calcium 8.6 Total Bilirubin 0.4 AST 18 ALT 16 Alkaline Phosphatase 76 Total Protein 6.4 Albumin 3.1 L COVID-19 Source Nasopharynx SARS-CoV-2 (PCR) Negative Influenza Type A (PCR) Negative Influenza Type B (PCR) Negative RSV (PCR) Negative Last Vital Signs Temp 36.6 C 04/30/23 15:34 Pulse 81 04/30/23 19:01 Resp 18 04/30/23 19:01 BP 124/76 04/30/23 19:01 Pulse Ox 88 L 04/30/23 19:01 Time Spent Time spent with Patient: 55-74 minutes Time was spent: preparing to see the patient(eg.review tests), obtaining and/or reviewing separately otained hiistory, ordering medications,tests, procedures, referring, communicating with other health career placement specialist, indepentently interpreting results and care coordination
--- NOTE | 2023-04-30 20:10 | W.PC.ACHO ---
Registration Status: REG ER Primary Language: Preferred Language: ED Information & Data Chief Complaint SOB 04/30/23 15:36 Triage Note Pt states he has been 04/30/23 15:19 feeling lethargic today and SOB. On 3L NC baseline. Hypoxic in triage. Pt appears lethargic. Medical / Surgical History (Last Updated 03/19/23 @ 21:51 by Barrington De La O MD) Pneumonia Acute hypoxemic respiratory failure Respiratory insufficiency Hallucinations Headache COVID-19 Altered mental status Septic shock Right bundle branch block Elevated troponin Elevated LFTs MICHAEL (acute kidney injury) Hyperkalemia Lactic acidosis COVID Respiratory failure with hypoxia and hypercapnia Nicotine dependence, cigarettes, uncomplicated Hypoxemia Tobacco dependence Obesity Incontinence of urine HTN (hypertension) Hypertension Tobacco abuse Bipolar 1 disorder Diabetes Obstructive sleep apnea Palliative care patient Obesity (BMI 30-39.9) Hyperlipidemia Schizophrenia Most Recent Vital Signs Temperature 36.6 C 04/30/23 15:34 Temperature Source Oral 04/30/23 15:34 Pulse 72 04/30/23 19:14 Pulse 81 04/30/23 19:01 Respiratory Rate 16 04/30/23 19:14 Respiratory Effort Short of Breath 04/30/23 15:34 Respiratory Depth Shallow 04/30/23 15:34 Respiratory Pattern Normal 04/30/23 15:34 Blood Pressure 124/76 04/30/23 19:01 Blood Pressure Mean 91 04/30/23 19:01 Blood Pressure Position Supine 04/30/23 15:34 Pulse Oximetry 89 L 04/30/23 19:14 Respiratory End-tidal CO2 63 04/30/23 15:25 Oxygen Delivery Method Bi-pap 04/30/23 15:52 Oxygen Flow Rate 3 04/30/23 15:34 Fraction of Inspired Oxygen (FIO2) 36 04/30/23 19:14 Pain Level 7 04/30/23 15:34 Comment Pt c/o abd pain 04/30/23 15:34 Allergies Penicillins Allergy (Severe, Unverified 04/30/23 15:57) Anaphylaxis Pt reports dextromethorphan [From Dimetapp Cold-Congestion] Allergy (Mild, Unverified 04/30/23 15:57) Skin Rash diphenhydramine [From Dimetapp Cold-Congestion] Allergy (Mild, Unverified 04/30/23 15:57) Skin Rash guaifenesin [From Dimetapp Cold-Congestion] Allergy (Mild, Unverified 04/30/23 15:57) Skin Rash phenylephrine [From Dimetapp Cold-Congestion] Allergy (Mild, Unverified 04/30/23 15:57) Skin Rash pseudoephedrine [From Dimetapp Cold-Congestion] Allergy (Mild, Unverified 04/30/23 15:57) Skin Rash bupropion [From Wellbutrin] Adverse Reaction (Intermediate, Unverified 04/30/23 15:57) Other (See Comment) Patient reports abnormal behavior Precautions Isolation Standard precaution 04/30/23 15:34 IV IV Catheter Type [Right Diffusix Antecubital] IV Catheter Gauge [Right 20 Antecubital] Diagnostics 04/30/23 04/30/23 04/30/23 Range/Units 19:26 18:17 16:08 WBC (4.4-10.8) 10^3/uL RBC (4.36-5.78) 10^6/uL Hgb (13.5-17.5) g/dL Hct (40.0-50.0) % MCV (80-95) fL MCH (27.0-33.0) pg MCHC (32.0-36.0) % RDW (11.8-14.1) % Plt Count (130-400) 10^3/uL MPV (8.0-11.0) fL Immature Gran % Neutrophils % Lymphocytes % Monocytes % Eosinophils % Basophils % Nucleated RBC % (0.0-0.3) % Absolute Neutrophils (1.2-6.7) 10^3/uL Absolute Lymphocytes (1.2-3.4) 10^3/uL Absolute Monocytes (0.1-0.8) 10^3/uL Absolute Eosinophils (0.0-0.7) 10^3/uL Absolute Basophils (0.0-0.2) 10^3/uL PT (9.1-11.1) sec INR (0.9-1.1) APTT (23.6-32.8) sec VBG pH 7.33 (7.31-7.41) VBG pCO2 78 H* (41-51) mmHg VBG pO2 48 mmHg VBG HCO3 41 H (23-28) mmol/L VBG Total CO2 36 H (24-29) mmol/L VBG O2 Saturation 80 % VBG Base Excess 15 H (-2-3) mmol/L Sodium (136-145) mmol/L Potassium (3.5-5.1) mmol/L Chloride (98-107) mmol/L Carbon Dioxide (21.0-32.0) mmol/L Anion Gap (3-11) mmol/L BUN (7-18) mg/dL Creatinine (0.70-1.30) mg/dL Est GFR (CKD-EPI 2020) (mL/min/1.73m2) Glucose (74-106) mg/dL Calcium (8.5-10.1) mg/dL Total Bilirubin (0.2-1.0) mg/dL AST (15-37) U/L ALT (16-63) U/L Alkaline Phosphatase (46-116) U/L Total Protein (6.4-8.2) g/dL Albumin (3.4-5.0) g/dL COVID-19 Source Nasopharynx SARS-CoV-2 (PCR) Negative (Negative) Influenza Type A (PCR) Negative (Negative) Influenza Type B (PCR) Negative (Negative) RSV (PCR) Negative (Negative) Add-On Test Request Pending 04/30/23 Range/Units 15:30 WBC 6.68 (4.4-10.8) 10^3/uL RBC 5.97 H (4.36-5.78) 10^6/uL Hgb 17.0 (13.5-17.5) g/dL Hct 56.6 H (40.0-50.0) % MCV 95 (80-95) fL MCH 28.5 (27.0-33.0) pg MCHC 30.0 L (32.0-36.0) % RDW 18.6 H (11.8-14.1) % Plt Count 227 (130-400) 10^3/uL MPV 9.3 (8.0-11.0) fL Immature Gran % 0.6 Neutrophils % 62.4 Lymphocytes % 23.5 Monocytes % 11.5 Eosinophils % 1.6 Basophils % 0.4 Nucleated RBC % 0.0 (0.0-0.3) % Absolute Neutrophils 4.16 (1.2-6.7) 10^3/uL Absolute Lymphocytes 1.57 (1.2-3.4) 10^3/uL Absolute Monocytes 0.77 (0.1-0.8) 10^3/uL Absolute Eosinophils 0.11 (0.0-0.7) 10^3/uL Absolute Basophils 0.03 (0.0-0.2) 10^3/uL PT 11.5 H (9.1-11.1) sec INR 1.2 H (0.9-1.1) APTT 28.3 (23.6-32.8) sec VBG pH 7.32 (7.31-7.41) VBG pCO2 82 H* (41-51) mmHg VBG pO2 50 mmHg VBG HCO3 42 H (23-28) mmol/L VBG Total CO2 37 H (24-29) mmol/L VBG O2 Saturation 82 % VBG Base Excess 16 H (-2-3) mmol/L Sodium 147 H (136-145) mmol/L Potassium 4.8 (3.5-5.1) mmol/L Chloride 104 (98-107) mmol/L Carbon Dioxide 39.4 H (21.0-32.0) mmol/L Anion Gap 3.6 (3-11) mmol/L BUN 23 H (7-18) mg/dL Creatinine 0.8 (0.70-1.30) mg/dL Est GFR (CKD-EPI 2020) 100.06 (mL/min/1.73m2) Glucose 84 (74-106) mg/dL Calcium 8.6 (8.5-10.1) mg/dL Total Bilirubin 0.4 (0.2-1.0) mg/dL AST 18 (15-37) U/L ALT 16 (16-63) U/L Alkaline Phosphatase 76 (46-116) U/L Total Protein 6.4 (6.4-8.2) g/dL Albumin 3.1 L (3.4-5.0) g/dL COVID-19 Source SARS-CoV-2 (PCR) (Negative) Influenza Type A (PCR) (Negative) Influenza Type B (PCR) (Negative) RSV (PCR) (Negative) Add-On Test Request Intake and Output - 24 Hour Total 04/30/23 15:11 thru 04/30/23 15:47 Intake Total 10 Balance 10 Intake: IV 10 Falls Risk Assessment History of Falls No History 04/30/23 15:34 Contributing Factors Unstable 04/30/23 15:34 Ambulatory Aids Uses ambulatory device 04/30/23 15:34 Tubes/Lines W/no contributing factors 04/30/23 15:34 Gait Evaluation No gait disturbance 04/30/23 15:34 Cognition No cognitive impairment 04/30/23 15:34 Fall Total Score 28 04/30/23 15:34 Level of Risk Moderate Risk 04/30/23 15:34 Problems (Last Updated 03/19/23 @ 21:51 by Barrington De La O MD) Acute respiratory failure with hypoxia and hypercarbia (Acute) v v v v v v v v v Sending and/or Receiving Nurses: Please use comment section below to note any information pertinent to the patient hand-off not included above. Information / Comments: Report received from: Mark MARTINEZ
[2023-04-30 20:27] LABS: Lab Add On Test DONE
[2023-04-30 20:51] LABS: NT-proBNP 1453 pg/mL (<300)
[2023-04-30 20:54] LABS: Troponin I 771 ng/L (< or =60)
--- NOTE | 2023-04-30 21:00 | RT.EKG_ITS ---
APPROVED REPORT Exam: Resting ECG Reason for Exam: ? t wave, st depression lead V Patient Location: I HR:62 bpm ECG Measurements Heart Rate 62 AXIS WA 137 P 56 QRSd 139 QRS 132 QT 424 T -54 QTc 431 Conclusion Sinus rhythm...normal P axis, V-rate 50- 99 Probable left atrial enlargement...P >50mS, <-0.10mV V1 Right bundle branch block...QRSd>120, terminal axis(90,270)
[2023-04-30 21:45] LABS: BE (Venous) 15 mmol/L (-2-3); HCO3 (Venous) 40 mmol/L (23-28); O2 Sat (Venous) 92 %; TCO2 (Venous) 35 mmol/L (24-29); pH (Venous) 7.33 (7.31-7.41); pO2 (Venous) 68 mmHg
[2023-04-30 21:50] LABS: pCO2 (Venous) 76 mmHg (41-51)
[2023-04-30 21:52] LABS: Lactate 1.3 mmol/L (0.6-1.4)
[2023-04-30] MEDS: Normal Saline Flush 10 ML SYR IVP (22:00)
[2023-04-30] MEDS: Nystatin POWDER 15 GM JAR TP (22:00)
[2023-04-30 22:01] LABS: INR 1.2 (0.9-1.1); PTT Activated 29.7 sec (23.6-32.8); Prothrombin Time 11.5 sec (9.1-11.1)
[2023-04-30 22:14] LABS: Troponin I 712 ng/L (< or =60)
[2023-04-30 22:29] LABS: Hemoglobin A1C 6.5 % (<5.7)
[2023-04-30] MEDS: Aspirin 81 MG CHEW 324 MG CH (22:46)
--- NOTE | 2023-04-30 22:51 | W.POCUS ---
[facility] Exam Limited Thoracic Lung Exam DATE OF EXAM: 04/30/23 TIME OF EXAM: 21:44 PROVIDER THAT PERFORMED THE STUDY: Konrad Sampson IS THIS A REPEAT EXAM DURING THIS ENCOUNTER: No REASON FOR EXAM: Hypoxia VISUALIZED STRUCTURES: right anterior, left anterior, right lateral, left lateral, right posterior, left posterior, right subcostal and left subcostal PERTINENT FINDINGS/IMPRESSION: B-lines/left side thoracis location: lateral and posterior and B-lines/right side thoracis location: lateral and posterior; no pneumonia noted, no pleural effusion on the left and no pleural effusion on the right Exam complete
[2023-04-30] MEDS: Divalproex Sodium 500 MG TAB.ER.24H PO (22:53)
[2023-04-30] MEDS: Lisinopril 20 MG TAB PO (22:54)
[2023-04-30] MEDS: Oxybutynin-CR 5 MG TABCR 30 MG PO (22:54)
[2023-04-30] MEDS: Miconazole 2% Topical Powder 85 GM BTL (22:55)
[2023-04-30] MEDS: Albuterol/Ipratropium 3 ML UPD VIAL IH (22:55)
--- NOTE | 2023-04-30 22:56 | W.POCUS ---
[facility] Exam Limited Cardiac Exam DATE OF EXAM: 04/30/23 TIME OF EXAM: 21:57 PROVIDER THAT PERFORMED THE STUDY: Konrad Sampson IS THIS A REPEAT EXAM DURING THIS ENCOUNTER: no REASON FOR EXAM: Congestive heart failure, Evaluation of LV function and Hypoxia VISUALIZED STRUCTURES: four chambers, left atrium, left ventricle, LVOT, right atrium, right ventricle, aortic valve, mitral valve, Interventricular septum and IVC VIEW OBTAINED: Apical 4-Chamber, Parasternal long-axis, Parasternal short-axis and Subxiphoid PERTINENT FINDINGS/IMPRESSION: Plethoric IVC, RV dilation (severe), RV dysfunction and Other (moderate LVH, severe RVH w/ moderate RV dysfunction and severe RV dilatation); No LV dysfunction INCIDENTAL FINDINGS: estimated RVSP 55 mm Exam complete
[2023-04-30 23:04] LABS: Procalcitonin < 0.1 ng/mL
[2023-04-30 23:20] LABS: BE (Venous) 14 mmol/L (-2-3); HCO3 (Venous) 38 mmol/L (23-28); O2 Sat (Venous) 99 %; TCO2 (Venous) 32 mmol/L (24-29); pCO2 (Venous) 52 mmHg (41-51); pH (Venous) 7.46 (7.31-7.41); pO2 (Venous) 90 mmHg
[2023-04-30] MEDS: Prazosin 1 MG CAP 3 MG PO (23:31)
[2023-04-30] MEDS: Enoxaparin 40 MG/0.4 ML SYR SC (23:31)
[2023-04-30] MEDS: Furosemide 40 MG/4 ML VIAL IVP (23:32)
[2023-04-30] MEDS: Budesonide/Formoterol 160/4.5 6 GM 60 PUFF INH IH (23:32)
[2023-04-30] MEDS: Atorvastatin 20 MG TAB 80 MG PO (23:32)
[2023-05-01] VITALS (35 sets, daily range): BP systolic 100–140; BP diastolic 63–85; PULSE 64–86; RESP 5–22; TEMP 36.2–36.6; O2SAT 88–92
[2023-05-01] MEDS: Albuterol/Ipratropium 3 ML UPD VIAL IH ×3 (04:04→11:17)
[2023-05-01 05:50] LABS: BE (Venous) 16 mmol/L (-2-3); HCO3 (Venous) 41 mmol/L (23-28); O2 Sat (Venous) 96 %; TCO2 (Venous) 36 mmol/L (24-29); pH (Venous) 7.39 (7.31-7.41); pO2 (Venous) 82 mmHg
[2023-05-01 06:02] LABS: Abs Immature Grans 0.01 10^3/uL (0.0-0.06); Absolute Basophil Count 0.01 10^3/uL (0.0-0.2); Absolute Eosinophil Count 0.01 10^3/uL (0.0-0.7); Absolute Lymphocyte Count 0.49 10^3/uL (1.2-3.4); Basophils % 0.2; Eosinophils % 0.2; HCT 54.1 % (40.0-50.0); HGB 16.6 g/dL (13.5-17.5); Immature Grans % 0.2; MCH 28.6 pg (27.0-33.0); MCHC 30.7 % (32.0-36.0); MCV 93 fL (80-95); MPV 8.9 fL (8.0-11.0); Monocytes % 7.3; Neutrophils % 80.1; Platelet Count 200 10^3/uL (130-400); RDW-SD 60.6 fL; WBC 4.09 10^3/uL (4.4-10.8)
[2023-05-01 06:08] LABS: Absolute Neutrophil Count 3.28 10^3/uL (1.2-6.7)
[2023-05-01 06:17] LABS: Anion Gap 3.5 mmol/L (3-11); BUN 26 mg/dL (7-18); CO2 38.5 mmol/L (21.0-32.0); CREATININE 0.9 mg/dL (0.70-1.30); Calcium 8.8 mg/dL (8.5-10.1); Chloride 102 mmol/L (98-107); Estimated GFR 96.57 (mL/min/1.73m2); Glucose 151 mg/dL (74-106); Potassium 4.6 mmol/L (3.5-5.1); Sodium 144 mmol/L (136-145)
[2023-05-01 06:22] LABS: Calculated LDL 51 mg/dL (<100); Cholesterol 101 mg/dL (<200); HDL Cholesterol 44 mg/dL (40-60); Triglyceride 33 mg/dL (<150)
[2023-05-01 06:24] LABS: Troponin I 556 ng/L (< or =60)
[2023-05-01 06:27] LABS: pCO2 (Venous) 69 mmHg (41-51)
[2023-05-01] MEDS: Cholecalciferol (Vitamin D3) 1,000 UNIT TAB 1000 UNITS PO (08:07)
[2023-05-01] MEDS: predniSONE 20 MG TAB 40 MG PO (08:07)
[2023-05-01] MEDS: ARIPiprazole 5 MG TAB 20 MG PO (08:07)
[2023-05-01] MEDS: Lisinopril 20 MG TAB PO (08:07)
[2023-05-01] MEDS: Furosemide 40 MG/4 ML VIAL IVP (08:08)
[2023-05-01] MEDS: Aspirin E.C. 81 MG TABEC PO (08:08)
[2023-05-01] MEDS: Normal Saline Flush 10 ML SYR IVP (08:09)
[2023-05-01] MEDS: amLODIPine 5 MG TAB PO (08:09)
[2023-05-01] MEDS: Budesonide/Formoterol 160/4.5 6 GM 60 PUFF INH IH (08:16)
--- NOTE | 2023-05-01 09:54 | PDOC.CMIN ---
[facility] All Active Problems (Updated 04/30/23 @ 23:19 by Konrad Sampson MD) Elevated troponin I level (Acute) Chronic heart failure with preserved ejection fraction (HFpEF) (Acute) Cor pulmonale (chronic) (Acute) Acute respiratory failure with hypoxia and hypercarbia (Acute) Right upper quadrant abdominal pain (Acute) Chronic back pain (Acute) Gram-negative bacteremia (Acute) COPD exacerbation (Acute) Acute on chronic respiratory failure with hypoxia and hypercapnia (Acute) COPD (chronic obstructive pulmonary disease) (Chronic) Suicide ideation (Acute) Seborrheic dermatitis (Acute) Sleep apnea (Acute) Depression (Chronic) Supplemental oxygen dependent (Acute) Medical History Pneumonia Acute hypoxemic respiratory failure Respiratory insufficiency Hallucinations Headache COVID-19 Altered mental status Septic shock Right bundle branch block Elevated troponin Elevated LFTs MICHAEL (acute kidney injury) Hyperkalemia Lactic acidosis COVID Respiratory failure with hypoxia and hypercapnia Nicotine dependence, cigarettes, uncomplicated Hypoxemia Tobacco dependence Obesity Incontinence of urine HTN (hypertension) Hypertension Tobacco abuse Bipolar 1 disorder Diabetes Obstructive sleep apnea Palliative care patient Obesity (BMI 30-39.9) Hyperlipidemia Schizophrenia Family History Other Adopted Social History Smoking/Tobacco Use Status: Current every day Tobacco Type: cigarettes Smoking packs per day: 0 Smoking cigarettes per day: 0.0 Years smoked: 30 Smoking pack-years: 0.00 Tobacco: How many years used: 30 Smoking risk assessment performed?: Yes Alcohol Intake: former Drug use: Never Substance use type: does not use Caregiver/Support person: No Household members: none Housing: assisted living facility Number of Children: 0 Communication Needs: Hard of Hearing and Corrective Lenses Education Level: high school Do you need help understanding health information?: Always current occupation: disabled due to mental illness Pets and animals: No Current gender identity: male What is your relationship status?: never How often do you talk on the phone with friends or family?: never How often do you get together with friends or relatives?: never Panel score (0-1 are the most socially isolated patients): 0 What type of physical activity do you participate in: none and sedentary lifestyle Frequency: does not exercise Special mannie needs: No Seatbelt use: always Do you feel safe at home: No Do you feel safe in your relationship?: Yes Additional Social history: Pt states he is not taken care of at his [facility] SDDC(Care Management) Screening Will the Patient Participate in the Screening?: Yes Do you worry about having a steady place to live?: no Problems where you live: other In the past 12 months, have you had to go without electric, gas, oil or water in your home?: no Have you or anyone in your house had to go without enough food to eat?: no Has lack of transportation kept you from medical appointments or from doing things needed for daily living?: no Has anyone in your support network made you feel unsafe for any reason?: no
--- NOTE | 2023-05-01 10:04 | DI.US_ITS ---
APPROVED REPORT EXAM: Comprehensive 2D, Doppler, and color-flow Echocardiogram Patient Location: In-Patient Room/Bed: XJK049 Dermatology Specialist: Briseyda Werner RDCS (AE) Indications: NSTEMI, Limited function follow up prev exam 03/21/2023 Other Information Study Quality: Adequate. Technically limited study due to body habitus, inability to position patient echo done supine bedside icu. Conclusion Normal left ventricular chamber size wall thickness and systolic function. Ejection fraction is 60 t o 65% Dilated and hypocontractile right ventricle. There are findings consistent with right ventricular pr essure/volume overload Estimated right ventricular systolic pressure is 50 mmHg Wall motion Left Ventricle The left ventricle is normal size. The left ventricular systolic function is normal. The left ventric ular ejection fraction is within the normal range. There is normal left ventricular wall thickness. F lattened septum consistent with right ventricular volume and pressure overload. LVEF is 60%. Right Ventricle Right ventricle is moderately dilated. Right ventricular systolic function is moderately reduced. Tricuspid Valve The RVSP is 49.5 Mild to moderate tricuspid regurgitation. mmHg. Great Vessels IVC is normal in size and collapses >50% with inspiration. Pericardium There is no pericardial effusion. 2D Dimensions IVSD d PLAX 1.19 cm M: 0.6-1.2 LVPW d PLAX 1.15 cm M: 0.6 - 1.2 LVID d PLAX 5.22 cm M: 4.2 - 5.8 LVDs 3.58 cm M: 2.5 - 4.0 LV EF Teichholz 58.9 % FS 31.42 % LV EDV (Teich) 130.9 mL LV ESV (Teich) 53.8 mL Auto EF LV EDV A4C 110.0 mL LV EDV A2C 131.6 mL LV EDV BP 121.3 mL LV ESV A4C 40.4 mL LV ESV A2C 56.1 mL LV ESV BP 47.7 mL LVEF(%) A4C 63.3 % LVEF(%) A2C 57.4 % LVEF(%) BP 60.6 % LV SV A4C 69.6 ml LV SV A2C 75.5 ml LV SV BP 73.5 ml LV CO A4C 4.8 L/min LV CO A2C 5.2 L/min LV CO BP 5.0 L/min HR A4C 68.71 BPM HR A2C 68.55 BPM LV EDV Index (BP) LV Strain Long Pk Overal Avg (s) 15.95 RV Strain Global Peak Long. Strain A4C 9.90 Global Peak Long. Strain A4C FW 11.83 Tricuspid Valve RA Pressure 3.00 mmHg TR Vmax 3.41 m/s TR Peak Grad 46.4 mmHg RVSP (TR) 49.5 mmHg
--- NOTE | 2023-05-01 11:20 | DSE_ITS ---
Date of service: 05/01/23 Time of Service: 16:20 DS: Diagnosis Discharge Diagnosis (1) Acute on chronic respiratory failure with hypoxia and hypercapnia: Status: Acute Asessment and Plan: - Determined to be secondary to ongoing BiPAP noncompliance at home -Patient has significant improvement overnight with BiPAP with complete resolution of his acute on chronic hypercapnic respiratory failure -Had prolonged discussion with patient prior to discharge regarding importance of nightly home BiPAP use in order to prevent further hospitalizations (2) COPD (chronic obstructive pulmonary disease): Status: Chronic (3) Cor pulmonale (chronic): Status: Acute (4) Elevated troponin I level: Status: Acute (5) Sleep apnea: Status: Acute (6) Nicotine dependence, cigarettes, uncomplicated: (7) Bipolar 1 disorder: (8) Diabetes: (9) Chronic heart failure with preserved ejection fraction (HFpEF): Status: Acute Discharge Plan Disposition Patient Disposition: Home Condition: Good Discharge Details Reason For Visit: Acute on Chronic Hypoxemic/Hypercapneic Resp Failu Admit Date/Time: 04/30/23 18:52 Admit Provider: Konrad Sampson Attending Provider: Konrad Sampson Primary Care Provider: MIMI PEREZ [facility] Course Hospital Course: Patient admitted with acute on chronic hypoxic and hypercapnic respiratory failure. He has a BiPAP/trilogy machine at home as this was set up for him previous discharge from this facility about a month ago. Patient claims that he is not using it however, reports from his group senior living suggest that he is not using it reliably. This was discussed in detail with the patient the importance of continuing to use his BiPAP machine at night even if he is feeling well as it will decrease him having to come back to the hospital. On morning 05/01/2023 patient's VBG showed significant improvement of his CO2 levels and patient was back to his baseline respiratory and mental status. At which time was determined that the patient was stable for discharge home. Home Meds and New Rx's Prescriptions: Continued metformin 750 mg tablet extended release 24 hr 750 mg PO DAILY Incruse Ellipta 62.5 mcg/actuation blister with device 1 inh inhalation DAILY Hold Instructions: Pt Stopped/Never Started melatonin 3 mg capsule 3 mg PO HS PRN ipratropium-albuterol 0.5 mg-3 mg(2.5 mg base)/3 mL solution for nebulization 3 ml inhalation Q4H PRN (Reason: wheezing) Qty: 540 12RF atorvastatin 20 mg tablet 20 mg PO HS azithromycin 250 mg tablet 250 mg PO DAILY Qty: 60 7RF Hold Instructions: hold until completed course of levofloxacin (DME) blood-glucose meter Misc See Rx Instructions .Route Rx Instructions: As directed (DME) Disposable Brief Jumbo X-Large Misc See Rx Instructions .Route Rx Instructions: As directed (DME) Blood Glucose Test Strip See Rx Instructions .Route Rx Instructions: As directed (DME) lancets [OneTouch UltraSoft Lancets] Misc See Rx Instructions .Route Rx Instructions: As directed (DME) oxygen and supplies 2 liters 0 .Route .MEDSUPPLY nystatin 100,000 unit/gram powder 1 applic topical BID oxybutynin chloride 15 mg tablet extended release 24hr 30 mg PO QHS Qty: 180 3RF budesonide-formoterol [Symbicort] 160-4.5 mcg/actuation HFA aerosol inhaler See Rx Instructions .ROUTE .COMPLEX Rx Instructions: 2 puffs BID prazosin 1 mg capsule 3 mg PO HS lisinopril 20 mg tablet 20 mg PO BID amlodipine 5 mg tablet 5 mg PO DAILY divalproex 500 mg tablet extended release 24 hr 500 mg PO HS cyanocobalamin (vitamin B-12) [Vitamin B-12] 5,000 mcg Tablet, Sublingual 5,000 mcg SUBLINGUAL DAILY cholecalciferol (vitamin D3) [Vitamin D3] 25 mcg (1,000 unit) capsule 1,000 unit PO DAILY albuterol sulfate 90 mcg/actuation HFA aerosol inhaler 2 inh inhalation Q6H PRN aripiprazole 20 mg tablet 20 mg PO DAILY prednisone 20 mg Tablet 40 mg PO DAILY Qty: 2 0RF Discharge Instructions Instructions: Sleep Apnea (DC), BiPAP (GEN) Referrals: MIMI PEREZ [facility] [Primary Care Provider] - 05/07/23 11:00 am Activity:: Activity as Tolerated Equipment/Supplies:: No Equipment Needed Diet:: As Tolerated Discharge Orders Discharge Orders: Discharge Order (Routine); Ordered 05/01/23 Ordered By: Rory Huerta Discharge Data Discharge Date/Time-TO BE ENTERED AT DEPARTURE: 05/01/23 13:10 DS: Summary Time Spent with Patient providing and/or coordinating discharge services: Greater than 30 minutes Status at Discharge Functional status at discharge: independent ambulation Overall status at discharge: patient is back to baseline Mental Status: mental status grossly normal Speech and Movement: speech and movement normal Mood: congruent mood Affect: normal affect Quality:SDOH Health Related Social Needs: Health related social needs risk of homeless, food ins ecurity, transpo insecurity, material hardship, personal safety Exam Narrative Exam Narrative: Well-appearing gentleman sitting up in the chair no acute distress, ANO x 4, on 4 L nasal cannula baseline, heart regular rhythm, lungs clear to auscultation bilaterally, abdomen soft, nontender, nondistended Psych Mental Status: mental status grossly normal Speech and Movement: speech and movement normal Mood: congruent mood Affect: normal affect DS: Data Vitals/I&O Vitals and I&O: Vital Signs Temperature 97.2 F L 05/01/23 08:34 Temperature Source Temporal Artery Scan 05/01/23 08:34 Pulse 73 05/01/23 11:17 Pulse 79 05/01/23 09:02 Respiratory Rate 20 05/01/23 11:17 Respiratory Effort Non-Labored 05/01/23 09:13 Respiratory Depth Shallow 05/01/23 09:13 Respiratory Pattern Normal 05/01/23 09:13 Blood Pressure 100/63 05/01/23 09:02 Blood Pressure Mean 75 05/01/23 09:02 Blood Pressure Position Left Lateral 05/01/23 04:06 Pulse Oximetry 89 L 05/01/23 11:17 Respiratory End-tidal CO2 63 04/30/23 15:25 Oxygen Delivery Method Nasal Cannula 05/01/23 11:17 Oxygen Flow Rate 4 05/01/23 11:17 Fraction of Inspired Oxygen (FIO2) 36 05/01/23 04:06 Pain Level 2 05/01/23 09:13 Comment took off cpap with RN present and pt is on 4 l o2 nasal cannula 05/01/23 08:12 Intake & Output 04/30/23 05/01/23 05/01/23 17:59 05:59 17:59 Intake Total 240 / 250 250 / 250 Output Total 600 / 600 1400 / 1400 Balance -360 / -350 -1150 / -1150 Weight 231 lb 7.766 oz 229 lb 0.964 oz Intake: IV Oral 240 / 240 240 / 240 Output: Urine 600 / 600 1400 / 1400 Other: Urine Color Yellow Yellow Urine Appearance Clear Clear Urine Odor Strong Comment Lasix 40 mg IVP given this am as ordered. Voiding clear yellow urine to urinal. Voiding Methods Urinal Data Completed and Pending Labs on day of discharge: Labs from last 24 hours 05/01/23 04/30/23 04/30/23 05:43 23:15 21:38 WBC 4.09 L RBC 5.80 H Hgb 16.6 Hct 54.1 H MCV 93 MCH 28.6 MCHC 30.7 L RDW 18.0 H Plt Count 200 MPV 8.9 Immature Gran % 0.2 Neutrophils % 80.1 Lymphocytes % 12.0 Monocytes % 7.3 Eosinophils % 0.2 Basophils % 0.2 Nucleated RBC % 0.0 Absolute Neutrophils 3.28 Absolute Lymphocytes 0.49 L Absolute Monocytes 0.30 Absolute Eosinophils 0.01 Absolute Basophils 0.01 PT 11.5 H INR 1.2 H APTT 29.7 VBG pH 7.39 7.46 H 7.33 VBG pCO2 69 H* 52 H 76 H* VBG pO2 82 90 68 VBG HCO3 41 H 38 H 40 H VBG Total CO2 36 H 32 H 35 H VBG O2 Saturation 96 99 92 VBG Base Excess 16 H 14 H 15 H VBG Lactate 1.3 Sodium 144 Potassium 4.6 Chloride 102 Carbon Dioxide 38.5 H Anion Gap 3.5 BUN 26 H Creatinine 0.9 Est GFR (CKD-EPI 2020) 96.57 Glucose 151 H Hemoglobin A1c 6.5 H Calcium 8.8 Total Bilirubin AST ALT Alkaline Phosphatase Troponin I 556 H* 712 H* NT-Pro-B Natriuret Pep Total Protein Albumin Triglycerides 33 Total Cholesterol 101 LDL Cholesterol, Calc 51 HDL Cholesterol 44 Procalcitonin < 0.1 COVID-19 Source SARS-CoV-2 (PCR) Influenza Type A (PCR) Influenza Type B (PCR) RSV (PCR) Add-On Test Request 04/30/23 04/30/23 04/30/23 18:17 16:08 15:30 WBC 6.68 RBC 5.97 H Hgb 17.0 Hct 56.6 H MCV 95 MCH 28.5 MCHC 30.0 L RDW 18.6 H Plt Count 227 MPV 9.3 Immature Gran % 0.6 Neutrophils % 62.4 Lymphocytes % 23.5 Monocytes % 11.5 Eosinophils % 1.6 Basophils % 0.4 Nucleated RBC % 0.0 Absolute Neutrophils 4.16 Absolute Lymphocytes 1.57 Absolute Monocytes 0.77 Absolute Eosinophils 0.11 Absolute Basophils 0.03 PT 11.5 H INR 1.2 H APTT 28.3 VBG pH 7.33 7.32 VBG pCO2 78 H* 82 H* VBG pO2 48 50 VBG HCO3 41 H 42 H VBG Total CO2 36 H 37 H VBG O2 Saturation 80 82 VBG Base Excess 15 H 16 H VBG Lactate Sodium 147 H Potassium 4.8 Chloride 104 Carbon Dioxide 39.4 H Anion Gap 3.6 BUN 23 H Creatinine 0.8 Est GFR (CKD-EPI 2020) 100.06 Glucose 84 Hemoglobin A1c Calcium 8.6 Total Bilirubin 0.4 AST 18 ALT 16 Alkaline Phosphatase 76 Troponin I 771 H* NT-Pro-B Natriuret Pep 1453 H Total Protein 6.4 Albumin 3.1 L Triglycerides Total Cholesterol LDL Cholesterol, Calc HDL Cholesterol Procalcitonin COVID-19 Source Nasopharynx SARS-CoV-2 (PCR) Negative Influenza Type A (PCR) Negative Influenza Type B (PCR) Negative RSV (PCR) Negative Add-On Test Request DONE PFS All Active Problems (Updated 04/30/23 @ 23:19 by Konrad Sampson MD) Elevated troponin I level (Acute) Chronic heart failure with preserved ejection fraction (HFpEF) (Acute) Cor pulmonale (chronic) (Acute) Acute respiratory failure with hypoxia and hypercarbia (Acute) Right upper quadrant abdominal pain (Acute) Chronic back pain (Acute) Gram-negative bacteremia (Acute) COPD exacerbation (Acute) Acute on chronic respiratory failure with hypoxia and hypercapnia (Acute) COPD (chronic obstructive pulmonary disease) (Chronic) Suicide ideation (Acute) Seborrheic dermatitis (Acute) Sleep apnea (Acute) Depression (Chronic) Supplemental oxygen dependent (Acute) Medical History Pneumonia Acute hypoxemic respiratory failure Respiratory insufficiency Hallucinations Headache COVID-19 Altered mental status Septic shock Right bundle branch block Elevated troponin Elevated LFTs MICHAEL (acute kidney injury) Hyperkalemia Lactic acidosis COVID Respiratory failure with hypoxia and hypercapnia Nicotine dependence, cigarettes, uncomplicated Hypoxemia Tobacco dependence Obesity Incontinence of urine HTN (hypertension) Hypertension Tobacco abuse Bipolar 1 disorder Diabetes Obstructive sleep apnea Palliative care patient Obesity (BMI 30-39.9) Hyperlipidemia Schizophrenia Family History Other Adopted Social History Smoking/Tobacco Use Status: Current every day Tobacco Type: cigarettes Smoking packs per day: 0 Smoking cigarettes per day: 0.0 Years smoked: 30 Smoking pack- years: 0.00 Tobacco: How many years used: 30 Smoking risk assessment performed?: Yes Alcohol Intake: former Drug use: Never Substance use type: does not use Caregiver/Support person: No Household members: none Housing: assisted living facility Number of Children: 0 Communication Needs: Hard of Hearing and Corrective Lenses Education Level: high school Do you need help understanding health information?: Always current occupation: disabled due to mental illness Pets and animals: No Current gender identity: male What is your relationship status?: never How often do you talk on the phone with friends or family?: never How often do you get together with friends or relatives?: never Panel score (0-1 are the most socially isolated patients): 0 What type of physical activity do you participate in: none and sedentary lifestyle Frequency: does not exercise Special mannie needs: No Seatbelt use: always Do you feel safe at home: No Do you feel safe in your relationship?: Yes Additional Social history: Pt states he is not taken care of at his [facility] Time Spent with Patient Time Spent with Patient: <45 minutes Time was spent: preparing to see the patient(eg.review tests), obtaining and/or reviewing separately otained hiistory, ordering medications,tests, procedures, referring, communicating with other health health care marketing manager, indepentently interpreting results, counseling the patient and care coordination
[2023-05-01] MEDS: Insulin Aspart 300 UNITS/3 ML PEN SC (12:15)
--- NOTE | 2023-05-01 18:59 | PDOC.CMPRO ---
Date of service: 05/01/23 Time of Service: 18:59 Care Management Progress Note Progress Note Text Progress Note Text: S/O: Nathan was sitting up in his chair when CM met with him. His RN was removing his IV, as he was being discharged home shortly. CM checked in with Nathan, who stated that he was told that he came to the hospital because he didn't wear his CPap machine at home. He stated that he was able to tolerate the Cpap at the hospital, but that his at home is not comfortable. CM stated that there may be different mask options, which his respiratory company can help with. Nathan stated that things are going ok at [facility], although he continues to adjust to the new owners. CM asked if there was anything that could be done to help support him better there, and he stated that there isn't. CM offered to contact the new owners to discuss communication, as Nathan stated that he has a hard time with change, and he declined. CM coordinated transport home via [facility] private vehicle. CM will continue to follow. A: Nathan is a 63 year old male admitted to [facility] on 04/30/23 for COPD exacerbation, hypoxemic/hypercapnic respiratory failure. P: Brain was discharged home today with no new services. He was transported back to [facility] via [facility] private vehicle, coordinated by CM. He will follow up with his PCP and discharge plan of care. CM will continue to follow. SDOH(Care Management) Screening Will the Patient Participate in the Screening?: Yes Do you worry about having a steady place to live?: no Problems where you live: other In the past 12 months, have you had to go without electric, gas, oil or water in your home?: no Have you or anyone in your house had to go without enough food to eat?: no Has lack of transportation kept you from medical appointments or from doing things needed for daily living?: no Has anyone in your support network made you feel unsafe for any reason?: no
== END 2023-05-01 13:10 | disposition home or self-care (01) | DRG 190 ==
LOC: ER 19:08 → ICU 20:09
PROVIDERS: Admitting Provider Internal Medicine; Emergency Provider Emergency Medicine; PCP Nurse Practitioner Family; Visit Provider Internal Medicine
DX: J44.1 Chronic obstructive pulmonary disease with (acute) exacerbation (principal); I50.33 Acute on chronic diastolic (congestive) heart failure; J96.21 Acute and chronic respiratory failure with hypoxia; J96.22 Acute and chronic respiratory failure with hypercapnia; I11.0 Hypertensive heart disease with heart failure; I27.81 Cor pulmonale (chronic); G47.33 Obstructive sleep apnea (adult) (pediatric); F17.210 Nicotine dependence, cigarettes, uncomplicated; F31.9 Bipolar disorder, unspecified; E11.9 Type 2 diabetes mellitus without complications; R74.8 Abnormal levels of other serum enzymes; Z99.81 Dependence on supplemental oxygen; I45.10 Unspecified right bundle-branch block; G89.29 Other chronic pain; M54.9 Dorsalgia, unspecified; E66.9 Obesity, unspecified; R32 Unspecified urinary incontinence; E78.5 Hyperlipidemia, unspecified; F20.9 Schizophrenia, unspecified; Z79.84 Long term (current) use of oral hypoglycemic drugs; Z91.199 Patient's noncompliance with other medical treatment and regimen due to unspecified reason; Z68.33 Body mass index [BMI] 33.0-33.9, adult
CPT/HCPCS: 00123; 36415; 76604; 80048; 80053; 80061; 82805; 84145; 87637; 93005; 93306; 93308; 94640; 96374; 99291; J1650; 71045; 83036; 83605; 83880; 84484; 85025; 85610; 85730; 93010; 94660; 99238; J1100; J1815; J1940; J3490; J7512; J7620

== ENCOUNTER 2023-06-08 10:52 | Inpatient (IN) | payer MEDICARE, MEDICAID, SELFPAY ==
[2023-06-08] VITALS (96 sets, daily range): BP systolic 93–136; BP diastolic 64–88; PULSE 58–89; RESP 5–24; TEMP 36.3–36.8; O2SAT 86–94
--- NOTE | 2023-06-08 10:30 | DI.RAD_ITS ---
Exam(s) XR PORTABLE CHEST AP EXAM: XR PORTABLE CHEST AP CLINICAL HISTORY: sob TECHNIQUE: 2D digital imaging was performed. COMPARISON: CR,XR XR PORTABLE CHEST AP from 03/19/2023 CR XR PORTABLE CHEST AP from 04/30/2023 FINDINGS: Exam limited by poor pulmonary inflation, under penetration. The patient's chin overlies the upper portion of chest. LUNGS: Pulmonary vascular prominence. Bibasilar densities could represent pulmonary edema versus dhruv ateral pneumonia. Clinical correlation recommended. No pleural abnormality seen. HEART: Enlarged. AORTA: Normal diameter. BONES: Unremarkable for age. Soft tissues: Unremarkable. IMPRESSION: Pulmonary edema versus bibasilar infiltrates. DATA REPOSITORY: RADIATION DOSE DELIVERED:
--- NOTE | 2023-06-08 10:30 | RT.EKG_ITS ---
APPROVED REPORT Exam: Resting ECG Reason for Exam: sob Patient Location: E HR:74 bpm ECG Measurements Heart Rate 74 AXIS HI 141 P -76 QRSd 149 QRS 110 QT 380 T -74 QTc 423 Conclusion sinus 74 rbbb no stemi
[2023-06-08 11:12] LABS: BE (Venous) 20 mmol/L (-2-3); HCO3 (Venous) 47 mmol/L (23-28); O2 Sat (Venous) 53 %; TCO2 (Venous) 42 mmol/L (24-29); pH (Venous) 7.28 (7.31-7.41); pO2 (Venous) 31 mmHg
[2023-06-08] MEDS: methylPREDNISolone SUCC 125 MG VIAL IVP (11:12)
[2023-06-08 11:14] LABS: pCO2 (Venous) 99 mmHg (41-51)
[2023-06-08 11:16] LABS: Abs Immature Grans 0.02 10^3/uL (0.0-0.06); Absolute Basophil Count 0.02 10^3/uL (0.0-0.2); Absolute Lymphocyte Count 1.17 10^3/uL (1.2-3.4); Absolute Neutrophil Count 3.94 10^3/uL (1.2-6.7); Basophils % 0.3; Eosinophils % 1.7; HCT 56.9 % (40.0-50.0); HGB 17.2 g/dL (13.5-17.5); Immature Grans % 0.3; Lymphocytes % 20.3; MCH 29.8 pg (27.0-33.0); MCHC 30.2 % (32.0-36.0); MCV 98 fL (80-95); MPV 9.1 fL (8.0-11.0); Monocytes % 8.7; Neutrophils % 68.7; Platelet Count 176 10^3/uL (130-400); RBC 5.78 10^6/uL (4.36-5.78); RDW 16.5 % (11.8-14.1); RDW-SD 60.6 fL; WBC 5.75 10^3/uL (4.4-10.8)
[2023-06-08] MEDS: Albuterol 2.5 MG/3 ML INH SOLN VIAL 10 MG UPD (11:18)
--- NOTE | 2023-06-08 11:25 | DI.VRAD_ITS ---
PROCEDURE INFORMATION: Exam: XR Chest Exam date and time: 06/08/2023 11:13 AM Age: 63 years old Clinical indication: Other: SOB TECHNIQUE: Imaging protocol: Radiologic exam of the chest. Views: 1 view. COMPARISON: CR XR PORTABLE CHEST AP 04/30/2023 3:42 PM FINDINGS: Lungs: Opacities in both bases may represent atelectasis or pneumonia. Pleural spaces: Unremarkable. No pleural effusion. No pneumothorax. Heart/Mediastinum: Cardiomegaly and mild vascular prominence may represent interstitial edema. Bones/joints: Unremarkable. IMPRESSION: 1. Cardiomegaly and mild vascular prominence may represent interstitial edema. 2. Opacities in both bases may represent atelectasis or pneumonia. Dictated and Authenticated by: Lorenza Reed MD. Ordering:SRUTHI Cervantes MD
[2023-06-08 11:36] LABS: ALT 15 U/L (16-63); AST 10 U/L (15-37); Albumin 3.4 g/dL (3.4-5.0); Alkaline Phosphatase 76 U/L (46-116); Anion Gap -0.6 mmol/L (3-11); BUN 15 mg/dL (7-18); Bilirubin, Total 0.6 mg/dL (0.2-1.0); CO2 44.6 mmol/L (21.0-32.0); CREATININE 0.9 mg/dL (0.70-1.30); Calcium 8.9 mg/dL (8.5-10.1); Chloride 100 mmol/L (98-107); Estimated GFR 96.57 (mL/min/1.73m2); Glucose 172 mg/dL (74-106); NT-proBNP 1082 pg/mL (<300); Potassium 4.7 mmol/L (3.5-5.1); Sodium 144 mmol/L (136-145); Total Protein 6.7 g/dL (6.4-8.2); Troponin I < 50 ng/L (< or =60)
--- NOTE | 2023-06-08 11:45 | DI.CT_ITS ---
Exam(s) CT HEAD WO EXAM: CT HEAD WO CLINICAL HISTORY: fall. TECHNIQUE: Imaging Protocol: Axial computed tomography images with coronal and sagittal reformatted images were created and reviewed COMPARISON: CT CT HEAD WO from 03/19/2023 FINDINGS: Ventricles and Extra axial spaces: Normal in size and morphology for the patient's age. Hemorrhage: None. Cerebral parenchyma: No evidence of acute infarct or mass. Midline shift: None. Brainstem/Cerebellum: Normal. Calvarium: Normal. Visualized Paranasal sinuses:Clear. Mastoids: Clear. Soft Tissues: Unremarkable. ORBITS: Unremarkable. PITUITARY: Not enlarged. IMPRESSION: No acute intracranial process. RADIATION DOSE DELIVERED: Total DLP DATA REPOSITORY: All CT scans at this facility are submitted to the National Radiology Data Registry (NRDR) Dose Index Registry (DIR) with the [employer] (ACR). RADIATION OPTIMIZATION: All CT scans at this facility use at least one of these dose optimization te chniques: automated exposure control; mA and/or kV adjustment per patient size (includes targeted exa ms where dose is matched to clinical indication); or iterative reconstruction.
[2023-06-08 11:52] LABS: COVID-19 PCR Negative (Negative); Influenza A PCR Negative (Negative); Influenza B PCR Negative (Negative); RSV PCR Negative (Negative)
[2023-06-08 11:54] LABS: Source Nasopharynx
--- NOTE | 2023-06-08 12:37 | DI.VRAD_ITS ---
PROCEDURE INFORMATION: Exam: CT Head Without Contrast Exam date and time: 06/08/2023 12:24 PM Age: 63 years old Clinical indication: Other: Fall TECHNIQUE: Imaging protocol: Computed tomography of the head without contrast. Radiation optimization: All CT scans at this facility use at least one of these dose optimization techniques: automated exposure control; mA and/or kV adjustment per patient size (includes targeted exams where dose is matched to clinical indication); or iterative reconstruction. COMPARISON: CT HEAD WO 03/19/2023 6:06 PM FINDINGS: Brain: No acute intracranial hemorrhage.. There is mild diffuse heterogeneity of the white matter attenuation, consistent with chronic white matter ischemic changes. Mild cerebral atrophy Cerebral ventricles: No ventriculomegaly. Paranasal sinuses: Visualized sinuses are unremarkable. No fluid levels. Mastoid air cells: Visualized mastoid air cells are well aerated. Bones/joints: Unremarkable. No acute fracture. Soft tissues: Unremarkable. IMPRESSION: No acute intracranial hemorrhage.. Dictated and Authenticated by: Lorenza Reed MD. Ordering:[email or web address] Cervantes MD
[2023-06-08 12:40] LABS: BE (Venous) 20 mmol/L (-2-3); HCO3 (Venous) 46 mmol/L (23-28); O2 Sat (Venous) 55 %; TCO2 (Venous) 42 mmol/L (24-29); pH (Venous) 7.29 (7.31-7.41); pO2 (Venous) 31 mmHg
[2023-06-08 12:41] LABS: pCO2 (Venous) 96 mmHg (41-51)
--- NOTE | 2023-06-08 12:52 | W.PM.HP.N ---
Date of service: 06/08/23 Time of Service: 12:56 Assessment and Plan Assessment and plan (1) COPD exacerbation: Status: Acute Assessment and plan: - Patient continues to smoke is likely a primary cause, in addition he has a known history of questionable compliance with his at bedtime BiPAP -Status post 125 mg IV Solu-Medrol in the emergency department -Will continue prednisone 40 mg daily -Will continue scheduled DuoNebs and every 2 hours as needed albuterol -Currently on a BiPAP, will recheck VBG later in the afternoon, will also continue BiPAP at bedtime (2) Acute on chronic respiratory failure with hypoxia and hypercapnia: Status: Acute Assessment and plan: - As noted above (3) Cor pulmonale (chronic): Status: Acute Assessment and plan: - Continue home amlodipine and statin (4) Diabetes: Status: Chronic Assessment and plan: - Hold home metformin -Will monitor blood glucose levels and give sliding scale insulin as needed History of Present Illness History of Present Illness Chief Complaint: Shortness of breath Narrative: 63-year-old male with a known past medical history of COPD, chronic hypoxic respiratory failure, BiPAP at bedtime, NIDDM, cor pulmonale, who lives in a community alf [facility] who again presents to the emergency department complaints of shortness of breath. According to alf, patient had not been using his home oxygen and is questionable whether or not he has been using his home BiPAP machine which was recently changed. Reportedly he has not had any fever, cough, chest pain, lightheadedness, nausea vomiting diarrhea or constipation. In the emergency department the patient was noted as being hypoxic and having significant work of breathing and was placed on BiPAP given his ABG showed 7.2 /, though his CBC, CMP, chest CT were all unremarkable. Additionally, patient did have a head CT as there was report he may have fallen and hit his head a few days prior that this was negative. He was given 1 dose of IV Solu-Medrol 125 mg as well as DuoNeb treatment. At which time emergency room physician paged hospitalist for admission for patient with COPD exacerbation and acute on chronic hypercapnic and hypoxic respiratory failure requiring admission to the ICU with BiPAP therapy. Review of Systems All systems reviewed & are unremarkable except as noted in HPI and below PFSH All Active Problems (Updated 06/08/23 @ 13:00 by Rory Huerta MD) Diabetes (Chronic) Nicotine dependence, cigarettes, uncomplicated (Acute) Chronic respiratory failure with hypercapnia (Acute) Advanced care planning/counseling discussion (Acute) Palliative care patient (Acute) Elevated troponin I level (Acute) Chronic heart failure with preserved ejection fraction (HFpEF) (Acute) Cor pulmonale (chronic) (Acute) Acute respiratory failure with hypoxia and hypercarbia (Acute) Right upper quadrant abdominal pain (Acute) Chronic back pain (Acute) Gram-negative bacteremia (Acute) COPD exacerbation (Acute) Acute on chronic respiratory failure with hypoxia and hypercapnia (Acute) COPD (chronic obstructive pulmonary disease) (Chronic) Suicide ideation (Acute) Seborrheic dermatitis (Acute) Sleep apnea (Acute) Depression (Chronic) Supplemental oxygen dependent (Acute) Medical History Pneumonia Acute hypoxemic respiratory failure Respiratory insufficiency Hallucinations Headache COVID-19 Altered mental status Septic shock Right bundle branch block Elevated troponin Elevated LFTs MICHAEL (acute kidney injury) Hyperkalemia Lactic acidosis COVID Respiratory failure with hypoxia and hypercapnia Hypoxemia Tobacco dependence Obesity Incontinence of urine HTN (hypertension) Hypertension Tobacco abuse Bipolar 1 disorder Diabetes Obstructive sleep apnea Obesity (BMI 30-39.9) Hyperlipidemia Schizophrenia Family History Other Adopted Social History Smoking/Tobacco Use Status: Current every day Tobacco Type: cigarettes Smoking packs per day: 0 Smoking cigarettes per day: 0.0 Years smoked: 30 Smoking pack-years: 0.00 Tobacco: How many years used: 30 Smoking risk assessment performed?: Yes Alcohol Intake: former Drug use: Never Substance use type: does not use Caregiver/Support person: No Household members: none Housing: [facility] Number of Children: 0 Communication Needs: Hard of Hearing and Corrective Lenses Education Level: high school Do you need help understanding health information?: Always current occupation: disabled due to mental illness Pets and animals: No Current gender identity: male What is your relationship status?: never How often do you talk on the phone with friends or family?: never How often do you get together with friends or relatives?: never Panel score (0-1 are the most socially isolated patients): 0 What type of physical activity do you participate in: none and sedentary lifestyle Frequency: does not exercise Special mannie needs: No Seatbelt use: always Do you feel safe at home: No Do you feel safe in your relationship?: Yes Additional Social history: Pt states he is not taken care of at his [facility] Meds Allergies and Home Medications Allergies Allergy/AdvReac Type Severity Reaction Status Date / Time Penicillins Allergy Severe Anaphylaxis Unverified 06/08/23 10:57 dextromethorphan Allergy Mild Skin Rash Unverified 06/08/23 10:57 [From Dimetapp Cold-Congestion] diphenhydramine Allergy Mild Skin Rash Unverified 06/08/23 10:57 [From Dimetapp Cold-Congestion] guaifenesin Allergy Mild Skin Rash Unverified 06/08/23 10:57 [From Dimetapp Cold-Congestion] phenylephrine Allergy Mild Skin Rash Unverified 06/08/23 10:57 [From Dimetapp Cold-Congestion] pseudoephedrine Allergy Mild Skin Rash Unverified 06/08/23 10:57 [From Dimetapp Cold-Congestion] bupropion [From Wellbutrin] AdvReac Intermediate Other (See Unverified 06/08/23 10:57 Comment) Home Medications Medication Instructions Recorded Confirmed Type metformin 750 mg tablet,extended 750 mg PO DAILY 03/13/21 06/08/23 History release 24 hr blood sugar diagnostic (Blood 10/23/21 06/08/23 History Glucose Test strips) blood-glucose meter 10/23/21 06/08/23 History diaper,brief,adult,disposable 10/23/21 06/08/23 History (Disposable Brief Jumbo X-Large) lancets (OneTouch UltraSoft 10/23/21 06/08/23 History Lancets) nystatin 100,000 unit/gram topical 1 applic topical BID 10/23/21 06/08/23 History powder oxygen and supplies 3 liters 10/23/21 06/08/23 History umeclidinium 62.5 mcg/actuation 1 inh inhalation DAILY 02/05/22 06/08/23 History blister powder for inhalation (Incruse Ellipta) budesonide-formoterol HFA 160 See Rx Instructions .Route .COMPLEX 04/12/22 06/08/23 History mcg-4.5 mcg/actuation aerosol inhaler (Symbicort) ipratropium 0.5 mg-albuterol 3 mg 3 ml inhalation Q4H PRN wheezing 05/15/22 06/08/23 Rx (2.5 mg base)/3 mL nebulization #540 mL soln atorvastatin 20 mg tablet 20 mg PO HS 08/13/22 06/08/23 History amlodipine 5 mg tablet 5 mg PO DAILY 12/23/22 06/08/23 History cyanocobalamin (vitamin B-12) 5,000 mcg sublingual DAILY 12/23/22 06/08/23 History 5,000 mcg sublingual tablet (Vitamin B-12) lisinopril 20 mg tablet 20 mg PO BID 12/23/22 06/08/23 History prazosin 1 mg capsule 3 mg PO HS 12/23/22 06/08/23 History azithromycin 250 mg tablet 250 mg PO DAILY #60 tabs 01/20/23 06/08/23 Rx oxybutynin chloride 15 mg 30 mg (2 x 15 mg) PO QHS #180 tabs 01/20/23 06/08/23 Rx tablet,extended release 24 hr albuterol sulfate 90 mcg/actuation 2 inh inhalation Q6H PRN 02/19/23 06/08/23 History aerosol inhaler cholecalciferol (vitamin D3) 25 1,000 unit PO DAILY 02/19/23 06/08/23 History mcg (1,000 unit) capsule (Vitamin D3) divalproex 500 mg tablet,extended 1,000 mg PO HS 05/09/23 06/08/23 History release 24 hr aripiprazole 30 mg tablet 30 mg PO DAILY 06/08/23 06/08/23 History Exam Narrative Exam Narrative: Fatigued appearing gentleman laying in bed in no acute distress with BiPAP in place, awakens to verbal stimuli and is oriented to person and place,, coarse breath sounds in bilateral lung bases Results Labs 06/08/23 11:02 06/08/23 11:02 Labs: Laboratory Results - last 24 hr 06/08/23 06/08/23 06/08/23 11:02 11:02 11:02 WBC 5.75 RBC 5.78 Hgb 17.2 Hct 56.9 H MCV 98 H MCH 29.8 MCHC 30.2 L RDW 16.5 H Plt Count 176 MPV 9.1 Immature Gran % 0.3 Neutrophils % 68.7 Lymphocytes % 20.3 Monocytes % 8.7 Eosinophils % 1.7 Basophils % 0.3 Nucleated RBC % 0.0 Absolute Neutrophils 3.94 Absolute Lymphocytes 1.17 L Absolute Monocytes 0.50 Absolute Eosinophils 0.10 Absolute Basophils 0.02 VBG pH 7.28 L VBG pCO2 99 H* VBG pO2 31 VBG HCO3 47 H VBG Total CO2 42 H VBG O2 Saturation 53 VBG Base Excess 20 H Sodium 144 Potassium 4.7 Chloride 100 Carbon Dioxide 44.6 H Anion Gap -0.6 L BUN 15 Creatinine 0.9 Est GFR (CKD-EPI 2020) 96.57 Glucose 172 H Calcium 8.9 Total Bilirubin 0.6 AST 10 L ALT 15 L Alkaline Phosphatase 76 Troponin I < 50 Cancelled NT-Pro-B Natriuret Pep 1082 H Cancelled Total Protein 6.7 Albumin 3.4 COVID-19 Source Nasopharynx SARS-CoV-2 (PCR) Negative Influenza Type A (PCR) Negative Influenza Type B (PCR) Negative RSV (PCR) Negative 06/08/23 12:36 WBC RBC Hgb Hct MCV MCH MCHC RDW Plt Count MPV Immature Gran % Neutrophils % Lymphocytes % Monocytes % Eosinophils % Basophils % Nucleated RBC % Absolute Neutrophils Absolute Lymphocytes Absolute Monocytes Absolute Eosinophils Absolute Basophils VBG pH 7.29 L VBG pCO2 96 H* VBG pO2 31 VBG HCO3 46 H VBG Total CO2 42 H VBG O2 Saturation 55 VBG Base Excess 20 H Sodium Potassium Chloride Carbon Dioxide Anion Gap BUN Creatinine Est GFR (CKD-EPI 2020) Glucose Calcium Total Bilirubin AST ALT Alkaline Phosphatase Troponin I NT-Pro-B Natriuret Pep Total Protein Albumin COVID-19 Source SARS-CoV-2 (PCR) Influenza Type A (PCR) Influenza Type B (PCR) RSV (PCR) Last Vital Signs Temp 98.3 F 06/08/23 10:49 Pulse 71 06/08/23 12:37 Resp 15 06/08/23 12:40 BP 129/78 06/08/23 12:31 Pulse Ox 93 06/08/23 12:37 Time Spent Time spent with Patient: 55-74 minutes (60 minutes of critical care time spent on patient with acute on chronic hypercapnic and hypoxic respiratory failure requiring BiPAP) Time was spent: preparing to see the patient(eg.review tests), obtaining and/or reviewing separately otained hiistory, ordering medications,tests, procedures, referring, communicating with other health healthcare recruiter, indepentently interpreting results, counseling the patient and care coordination
--- NOTE | 2023-06-08 14:07 | W.PC.ACHO ---
Registration Status: ADM IN Primary Language: Preferred Language: ED Information & Data Chief Complaint SOB 06/08/23 10:57 Chief Complaint SOB 06/08/23 10:49 Triage Note BIBA from residential for 06/08/23 10:49 difficulty breathing. 72% on RA when EMS got there, cyanosis around lips, cold extremities, gave 1 duoneb, 1 albuterol, 86% on 6L. hx COPD. etO2 78-82. Medical / Surgical History (Last Reviewed 06/08/23 @ 12:58 by Rory Huerta MD) Pneumonia Acute hypoxemic respiratory failure Respiratory insufficiency Hallucinations Headache COVID-19 Altered mental status Septic shock Right bundle branch block Elevated troponin Elevated LFTs MICHAEL (acute kidney injury) Hyperkalemia Lactic acidosis COVID Respiratory failure with hypoxia and hypercapnia Hypoxemia Tobacco dependence Obesity Incontinence of urine HTN (hypertension) Hypertension Tobacco abuse Bipolar 1 disorder Diabetes Obstructive sleep apnea Obesity (BMI 30-39.9) Hyperlipidemia Schizophrenia Most Recent Vital Signs Temperature 36.5 C 06/08/23 13:38 Temperature Source Temporal Artery Scan 06/08/23 13:38 Pulse 63 06/08/23 13:38 Respiratory Rate 15 06/08/23 13:38 Respiratory Effort Mechanically Ventilated 06/08/23 13:38 Respiratory Depth Normal 06/08/23 13:38 Respiratory Pattern Normal 06/08/23 13:38 Blood Pressure 109/74 06/08/23 13:38 Blood Pressure Mean 85 06/08/23 13:38 Blood Pressure Position Supine 06/08/23 13:38 Pulse Oximetry 91 L 06/08/23 13:38 Oxygen Delivery Method Bi-pap 06/08/23 13:38 Oxygen Flow Rate 4 06/08/23 11:18 Fraction of Inspired Oxygen (FIO2) 35 06/08/23 13:38 Pain Level 0 06/08/23 13:38 Allergies Penicillins Allergy (Severe, Unverified 06/08/23 10:57) Anaphylaxis Pt reports dextromethorphan [From Dimetapp Cold-Congestion] Allergy (Mild, Unverified 06/08/23 10:57) Skin Rash diphenhydramine [From Dimetapp Cold-Congestion] Allergy (Mild, Unverified 06/08/23 10:57) Skin Rash guaifenesin [From Dimetapp Cold-Congestion] Allergy (Mild, Unverified 06/08/23 10:57) Skin Rash phenylephrine [From Dimetapp Cold-Congestion] Allergy (Mild, Unverified 06/08/23 10:57) Skin Rash pseudoephedrine [From Dimetapp Cold-Congestion] Allergy (Mild, Unverified 06/08/23 10:57) Skin Rash bupropion [From Wellbutrin] Adverse Reaction (Intermediate, Unverified 06/08/23 10:57) Other (See Comment) Patient reports abnormal behavior Active Medications Generic Name Dose Route Start Last Admin Trade Name Dereje PRN Reason Stop Dose Admin Albuterol/Ipratropium 3 ml 06/08/23 14:00 06/08/23 13:59 Albuterol/Ipratropium 3 Ml Upd Vial UPD Not Given Q6H GRETEL IV IV Catheter Type [] Saline Lock IV Catheter Gauge [] 20 IV Catheter Gauge [Left 20 Antecubital] Diet Orders Category Date Time Status Diabetes Consistent CHO/Heart Healthy [DIET] Nutrition 06/08/23 Dinner Active Diagnostics 06/08/23 06/08/23 06/08/23 Range/Units 13:55 12:36 11:02 WBC (4.4-10.8) 10^3/uL RBC (4.36-5.78) 10^6/uL Hgb (13.5-17.5) g/dL Hct (40.0-50.0) % MCV (80-95) fL MCH (27.0-33.0) pg MCHC (32.0-36.0) % RDW (11.8-14.1) % Plt Count (130-400) 10^3/uL MPV (8.0-11.0) fL Immature Gran % Neutrophils % Lymphocytes % Monocytes % Eosinophils % Basophils % Nucleated RBC % (0.0-0.3) % Absolute Neutrophils (1.2-6.7) 10^3/uL Absolute Lymphocytes (1.2-3.4) 10^3/uL Absolute Monocytes (0.1-0.8) 10^3/uL Absolute Eosinophils (0.0-0.7) 10^3/uL Absolute Basophils (0.0-0.2) 10^3/uL VBG pH 7.29 L (7.31-7.41) VBG pCO2 96 H* (41-51) mmHg VBG pO2 31 mmHg VBG HCO3 46 H (23-28) mmol/L VBG Total CO2 42 H (24-29) mmol/L VBG O2 Saturation 55 % VBG Base Excess 20 H (-2-3) mmol/L Sodium (136-145) mmol/L Potassium (3.5-5.1) mmol/L Chloride (98-107) mmol/L Carbon Dioxide (21.0-32.0) mmol/L Anion Gap (3-11) mmol/L BUN (7-18) mg/dL Creatinine (0.70-1.30) mg/dL Est GFR (CKD-EPI 2020) (mL/min/1.73m2) Glucose (74-106) mg/dL Calcium (8.5-10.1) mg/dL Total Bilirubin (0.2-1.0) mg/dL AST (15-37) U/L ALT (16-63) U/L Alkaline Phosphatase (46-116) U/L Troponin I Pending (< or =60) ng/L NT-Pro-B Natriuret Pep Cancelled (<300) pg/mL Total Protein 6.7 (6.4-8.2) g/dL Albumin 3.4 (3.4-5.0) g/dL COVID-19 Source Nasopharynx SARS-CoV-2 (PCR) Negative (Negative) Influenza Type A (PCR) Negative (Negative) Influenza Type B (PCR) Negative (Negative) RSV (PCR) Negative (Negative) 06/08/23 06/08/23 Range/Units 11:02 11:02 WBC 5.75 (4.4-10.8) 10^3/uL RBC 5.78 (4.36-5.78) 10^6/uL Hgb 17.2 (13.5-17.5) g/dL Hct 56.9 H (40.0-50.0) % MCV 98 H (80-95) fL MCH 29.8 (27.0-33.0) pg MCHC 30.2 L (32.0-36.0) % RDW 16.5 H (11.8-14.1) % Plt Count 176 (130-400) 10^3/uL MPV 9.1 (8.0-11.0) fL Immature Gran % 0.3 Neutrophils % 68.7 Lymphocytes % 20.3 Monocytes % 8.7 Eosinophils % 1.7 Basophils % 0.3 Nucleated RBC % 0.0 (0.0-0.3) % Absolute Neutrophils 3.94 (1.2-6.7) 10^3/uL Absolute Lymphocytes 1.17 L (1.2-3.4) 10^3/uL Absolute Monocytes 0.50 (0.1-0.8) 10^3/uL Absolute Eosinophils 0.10 (0.0-0.7) 10^3/uL Absolute Basophils 0.02 (0.0-0.2) 10^3/uL VBG pH 7.28 L (7.31-7.41) VBG pCO2 99 H* (41-51) mmHg VBG pO2 31 mmHg VBG HCO3 47 H (23-28) mmol/L VBG Total CO2 42 H (24-29) mmol/L VBG O2 Saturation 53 % VBG Base Excess 20 H (-2-3) mmol/L Sodium 144 (136-145) mmol/L Potassium 4.7 (3.5-5.1) mmol/L Chloride 100 (98-107) mmol/L Carbon Dioxide 44.6 H (21.0-32.0) mmol/L Anion Gap -0.6 L (3-11) mmol/L BUN 15 (7-18) mg/dL Creatinine 0.9 (0.70-1.30) mg/dL Est GFR (CKD-EPI 2020) 96.57 (mL/min/1.73m2) Glucose 172 H (74-106) mg/dL Calcium 8.9 (8.5-10.1) mg/dL Total Bilirubin 0.6 (0.2-1.0) mg/dL AST 10 L (15-37) U/L ALT 15 L (16-63) U/L Alkaline Phosphatase 76 (46-116) U/L Troponin I Cancelled < 50 (< or =60) ng/L NT-Pro-B Natriuret Pep 1082 H (<300) pg/mL Total Protein (6.4-8.2) g/dL Albumin (3.4-5.0) g/dL COVID-19 Source SARS-CoV-2 (PCR) (Negative) Influenza Type A (PCR) (Negative) Influenza Type B (PCR) (Negative) RSV (PCR) (Negative) Intake and Output - 24 Hour Total 06/08/23 10:36 thru 06/08/23 13:38 Weight 112.2 kg Falls Risk Assessment History of Falls No History 06/08/23 13:38 Contributing Factors Impairments,Incontinence 06/08/23 13:38 Ambulatory Aids Independent 06/08/23 11:15 Tubes/Lines None 06/08/23 13:38 Gait Evaluation No gait disturbance 06/08/23 11:15 Cognition Cognitive impairment 06/08/23 13:38 Fall Total Score 21 06/08/23 13:38 Level of Risk Standard/Low Risk 06/08/23 13:38 Problems (Last Reviewed 06/08/23 @ 12:58 by Rory Huerta MD) Diabetes (Chronic) Cor pulmonale (chronic) (Acute) COPD exacerbation (Acute) Acute on chronic respiratory failure with hypoxia and hypercapnia (Acute) v v v v v v v v v Sending and/or Receiving Nurses: Please use comment section below to note any information pertinent to the patient hand-off not included above. Information / Comments: Report received from:Carole March RN
[2023-06-08 14:22] LABS: Troponin I < 50 ng/L (< or =60)
[2023-06-08] MEDS: Normal Saline 1,000 ML 75 ML IV (14:45)
[2023-06-08] MEDS: Enoxaparin 40 MG/0.4 ML SYR SC (16:27)
--- NOTE | 2023-06-08 17:00 | ED.GENADUL_ITS ---
Discharge Plan Disposition Patient Disposition: Admit to [facility] Condition: Serious Discharge Details Chief Complaint: SOB Clinical Impression: Supplemental oxygen dependent, Acute on chronic respiratory failure with hypoxia and hypercapnia, COPD (chronic obstructive pulmonary disease) Admit Date/Time: 06/08/23 12:52 Admit Provider: Rory Huerta Attending Provider: Rory Huerta Primary Care Provider: MIMI PEREZ ED Provider: Vera Dsouza Discharge Data Discharge Date/Time-TO BE ENTERED AT DEPARTURE: 06/08/23 13:04 HPI General Date/Time Provider Initiated Documentation: 06/08/23 11:05 . Limitations to Documentation: physical limitation . Information obtained by: EMS and old records reviewed . HPI Narrative: 63-year-old gentleman with past medical history of diabetes, CHF, chronic respiratory failure, COPD, bipolar disorder, medication noncompliance presents for evaluation of shortness of breath. EMS reports that they were called to the [place] [facility] for difficulty breathing. They report the patient was 72% on room air. He was not wearing his oxygen on their arrival. They reported some cyanosis. They gave the patient a bronchodilator and put on 6 L of oxygen and transported to the hospital. The patient reports that he is using his BiPAP at nighttime, not wearing his daily oxygen. Denies any chest pain. Related Data Home Medications Medication Instructions Recorded Confirmed metformin 750 mg tablet,extended 750 mg PO DAILY 03/13/21 06/08/23 release 24 hr blood sugar diagnostic (Blood 10/23/21 06/08/23 Glucose Test strips) blood-glucose meter 10/23/21 06/08/23 diaper,brief,adult,disposable 10/23/21 06/08/23 (Disposable Brief Jumbo X-Large) lancets (OneTouch UltraSoft 10/23/21 06/08/23 Lancets) nystatin 100,000 unit/gram topical 1 applic topical BID 10/23/21 06/08/23 powder oxygen and supplies 3 liters 10/23/21 06/08/23 umeclidinium 62.5 mcg/actuation 1 inh inhalation DAILY 02/05/22 06/08/23 blister powder for inhalation (Incruse Ellipta) budesonide-formoterol HFA 160 See Rx Instructions .Route .COMPLEX 04/12/22 06/08/23 mcg-4.5 mcg/actuation aerosol inhaler (Symbicort) ipratropium 0.5 mg-albuterol 3 mg 3 ml inhalation Q4H PRN wheezing 05/15/22 06/08/23 (2.5 mg base)/3 mL nebulization #540 mL soln atorvastatin 20 mg tablet 20 mg PO HS 08/13/22 06/08/23 amlodipine 5 mg tablet 5 mg PO DAILY 12/23/22 06/08/23 cyanocobalamin (vitamin B-12) 5,000 mcg sublingual DAILY 12/23/22 06/08/23 5,000 mcg sublingual tablet (Vitamin B-12) lisinopril 20 mg tablet 20 mg PO BID 12/23/22 06/08/23 prazosin 1 mg capsule 3 mg PO HS 12/23/22 06/08/23 azithromycin 250 mg tablet 250 mg PO DAILY #60 tabs 01/20/23 06/08/23 oxybutynin chloride 15 mg 30 mg (2 x 15 mg) PO QHS #180 tabs 01/20/23 06/08/23 tablet,extended release 24 hr albuterol sulfate 90 mcg/actuation 2 inh inhalation Q6H PRN 02/19/23 06/08/23 aerosol inhaler cholecalciferol (vitamin D3) 25 1,000 unit PO DAILY 02/19/23 06/08/23 mcg (1,000 unit) capsule (Vitamin D3) divalproex 500 mg tablet,extended 1,000 mg PO HS 05/09/23 06/08/23 release 24 hr aripiprazole 30 mg tablet 30 mg PO DAILY 06/08/23 06/08/23 Previous Rx's Medication Instructions Recorded ipratropium 0.5 mg-albuterol 3 mg 3 ml inhalation Q4H PRN wheezing 05/15/22 (2.5 mg base)/3 mL nebulization #540 mL soln azithromycin 250 mg tablet 250 mg PO DAILY #60 tabs 01/20/23 oxybutynin chloride 15 mg 30 mg (2 x 15 mg) PO QHS #180 tabs 01/20/23 tablet,extended release 24 hr Allergies Allergy/AdvReac Type Severity Reaction Status Date / Time Penicillins Allergy Severe Anaphylaxis Unverified 06/08/23 10:57 dextromethorphan Allergy Mild Skin Rash Unverified 06/08/23 10:57 [From Dimetapp Cold-Congestion] diphenhydramine Allergy Mild Skin Rash Unverified 06/08/23 10:57 [From Dimetapp Cold-Congestion] guaifenesin Allergy Mild Skin Rash Unverified 06/08/23 10:57 [From Dimetapp Cold-Congestion] phenylephrine Allergy Mild Skin Rash Unverified 06/08/23 10:57 [From Dimetapp Cold-Congestion] pseudoephedrine Allergy Mild Skin Rash Unverified 06/08/23 10:57 [From Dimetapp Cold-Congestion] bupropion [From Wellbutrin] AdvReac Intermediate Other (See Unverified 06/08/23 10:57 Comment) General Stated Complaint: SOB SANTA: 3 Exam Narrative Exam Narrative: Review of Systems: All systems reviewed & are unremarkable except as noted in HPI and below Chronically ill-appearing, mild respiratory distress NCAT PERRL, left conjunctive injected, no drainage RRR, no murmur Mild increased respiratory effort, poor air movement bilaterally, decreased oxygen saturation on baseline home O2 (4L) Nondistended abdomen , soft nontender Extremities w/o deformity, no cyanosis, no edema No rashes or lesions. no focal neurologic deficits Flat affect Course Vital Signs Vital signs: Vital Signs Temperature 36.8 C 06/08/23 10:49 Pulse 77 06/08/23 10:49 Respiratory Rate 24 06/08/23 10:49 Blood Pressure 136/86 06/08/23 10:49 Pulse Oximetry 87 L 06/08/23 10:49 Temperature 36.3 C L 06/08/23 15:42 Temperature Source Temporal Artery Scan 06/08/23 15:42 Pulse 61 06/08/23 16:01 Pulse 64 06/08/23 16:30 Respiratory Rate 15 06/08/23 16:30 Respiratory Effort Labored 06/08/23 15:42 Respiratory Depth Shallow 06/08/23 15:42 Respiratory Pattern Normal 06/08/23 15:42 Blood Pressure 93/67 L 06/08/23 16:01 Blood Pressure Mean 76 06/08/23 16:01 Blood Pressure Position Supine 06/08/23 13:38 Pulse Oximetry 92 06/08/23 16:30 Oxygen Delivery Method Bi-pap 06/08/23 13:38 Oxygen Flow Rate 4 06/08/23 11:18 Fraction of Inspired Oxygen (FIO2) 40 06/08/23 16:19 Pain Level 0 06/08/23 13:38 Lab/Test Results Lab/Test Results: Laboratory Tests Range/Units 06/08/23 06/08/23 06/08/23 11:02 11:02 11:02 WBC (4.4-10.8) 10^3/uL 5.75 RBC (4.36-5.78) 10^6/uL 5.78 Hgb (13.5-17.5) g/dL 17.2 Hct (40.0-50.0) % 56.9 H MCV (80-95) fL 98 H MCH (27.0-33.0) pg 29.8 MCHC (32.0-36.0) % 30.2 L RDW (11.8-14.1) % 16.5 H Plt Count (130-400) 10^3/uL 176 MPV (8.0-11.0) fL 9.1 Immature Gran % 0.3 Neutrophils % 68.7 Lymphocytes % 20.3 Monocytes % 8.7 Eosinophils % 1.7 Basophils % 0.3 Nucleated RBC % (0.0-0.3) % 0.0 Absolute Neutrophils (1.2-6.7) 10^3/uL 3.94 Absolute Lymphocytes (1.2-3.4) 10^3/uL 1.17 L Absolute Monocytes (0.1-0.8) 10^3/uL 0.50 Absolute Eosinophils (0.0-0.7) 10^3/uL 0.10 Absolute Basophils (0.0-0.2) 10^3/uL 0.02 VBG pH (7.31-7.41) 7.28 L VBG pCO2 (41-51) mmHg 99 H* VBG pO2 mmHg 31 VBG HCO3 (23-28) mmol/L 47 H VBG Total CO2 (24-29) mmol/L 42 H VBG O2 Saturation % 53 VBG Base Excess (-2-3) mmol/L 20 H Sodium (136-145) mmol/L 144 Potassium (3.5-5.1) mmol/L 4.7 Chloride (98-107) mmol/L 100 Carbon Dioxide (21.0-32.0) mmol/L 44.6 H Anion Gap (3-11) mmol/L -0.6 L BUN (7-18) mg/dL 15 Creatinine (0.70-1.30) mg/dL 0.9 Est GFR (CKD-EPI 2020) (mL/min/1.73m2) 96.57 Glucose (74-106) mg/dL 172 H Calcium (8.5-10.1) mg/dL 8.9 Total Bilirubin (0.2-1.0) mg/dL 0.6 AST (15-37) U/L 10 L ALT (16-63) U/L 15 L Alkaline Phosphatase (46-116) U/L 76 Troponin I (< or =60) ng/L < 50 Cancelled NT-Pro-B Natriuret Pep (<300) pg/mL 1082 H Cancelled Total Protein (6.4-8.2) g/dL 6.7 Albumin (3.4-5.0) g/dL 3.4 COVID-19 Source Nasopharynx SARS-CoV-2 (PCR) (Negative) Negative Influenza Type A (PCR) (Negative) Negative Influenza Type B (PCR) (Negative) Negative RSV (PCR) (Negative) Negative Range/Units 06/08/23 12:36 WBC (4.4-10.8) 10^3/uL RBC (4.36-5.78) 10^6/uL Hgb (13.5-17.5) g/dL Hct (40.0-50.0) % MCV (80-95) fL MCH (27.0-33.0) pg MCHC (32.0-36.0) % RDW (11.8-14.1) % Plt Count (130-400) 10^3/uL MPV (8.0-11.0) fL Immature Gran % Neutrophils % Lymphocytes % Monocytes % Eosinophils % Basophils % Nucleated RBC % (0.0-0.3) % Absolute Neutrophils (1.2-6.7) 10^3/uL Absolute Lymphocytes (1.2-3.4) 10^3/uL Absolute Monocytes (0.1-0.8) 10^3/uL Absolute Eosinophils (0.0-0.7) 10^3/uL Absolute Basophils (0.0-0.2) 10^3/uL VBG pH (7.31-7.41) 7.29 L VBG pCO2 (41-51) mmHg 96 H* VBG pO2 mmHg 31 VBG HCO3 (23-28) mmol/L 46 H VBG Total CO2 (24-29) mmol/L 42 H VBG O2 Saturation % 55 VBG Base Excess (-2-3) mmol/L 20 H Sodium (136-145) mmol/L Potassium (3.5-5.1) mmol/L Chloride (98-107) mmol/L Carbon Dioxide (21.0-32.0) mmol/L Anion Gap (3-11) mmol/L BUN (7-18) mg/dL Creatinine (0.70-1.30) mg/dL Est GFR (CKD-EPI 2020) (mL/min/1.73m2) Glucose (74-106) mg/dL Calcium (8.5-10.1) mg/dL Total Bilirubin (0.2-1.0) mg/dL AST (15-37) U/L ALT (16-63) U/L Alkaline Phosphatase (46-116) U/L Troponin I (< or =60) ng/L NT-Pro-B Natriuret Pep (<300) pg/mL Total Protein (6.4-8.2) g/dL Albumin (3.4-5.0) g/dL COVID-19 Source SARS-CoV-2 (PCR) (Negative) Influenza Type A (PCR) (Negative) Influenza Type B (PCR) (Negative) RSV (PCR) (Negative) Medical Decision Making Emergent evaluation of respiratory failure. Patient is well-known to this facility and is generally noncompliant with his respiratory management at home. On arrival on his home O2 settings, the patient remained hypoxic. Initial VBG was concerning for significantly elevated CO2 level so the patient was placed on BiPAP. Continuation of bronchodilators. Steroids given. No concerning signs or symptoms for infectious etiology. White blood cell count is not elevated. No anemia. His BNP is elevated, but no acute derangement from prior. His viral testing is negative. The patient reported that there may have been a fall sometime in the last 1 to 2 days. So a head CT was ordered to evaluate for intracranial injury, and this was negative and unremarkable. Given the extent of his respiratory failure, the patient was discussed with the hospitalist and will be admitted to their service for further management. Medical Records Medical records reviewed: Yes I reviewed the patient's medical records. Lab Data Lab results reviewed: Yes I reviewed the patient's lab results. ECG Data Attestation: I personally reviewed and interpreted this ECG (s) as follows: Prior ECG tracings: available for review Interpretation: Sinus 74, normal axis, right bundle branch block, no STEMI Quality:SDOH Health Related Social Needs: Health related social needs risk of homeless, food ins ecurity, transpo insecurity, material hardship, personal safety Critical Care Time Critical Care Time Critical Care Time: Yes Total Critical Care Time: 34 Attestation: CRITICAL CARE Upon my evaluation, this patient had a high probability of imminent or life- threatening deterioration due to respiratory failure which required my direct attention, intervention, and personal management. I have personally provided 34 minutes of critical care time exclusive of time spent on separately billable procedures. Time includes review of laboratory d last, radiology results, discussion with consultants, and monitoring for potential decompensation. Interventions were performed as documented above [facility] All Active Problems (Updated 06/08/23 @ 17:05 by Vera Dsouza MD) Diabetes (Chronic) Nicotine dependence, cigarettes, uncomplicated (Acute) Chronic respiratory failure with hypercapnia (Acute) Advanced care planning/counseling discussion (Acute) Palliative care patient (Acute) Elevated troponin I level (Acute) Chronic heart failure with preserved ejection fraction (HFpEF) (Acute) Cor pulmonale (chronic) (Acute) Acute respiratory failure with hypoxia and hypercarbia (Acute) Right upper quadrant abdominal pain (Acute) Chronic back pain (Acute) Gram-negative bacteremia (Acute) COPD exacerbation (Acute) Acute on chronic respiratory failure with hypoxia and hypercapnia (Acute) COPD (chronic obstructive pulmonary disease) (Chronic) Suicide ideation (Acute) Seborrheic dermatitis (Acute) Sleep apnea (Acute) Depression (Chronic) Supplemental oxygen dependent (Acute) Medical History Pneumonia Acute hypoxemic respiratory failure Respiratory insufficiency Hallucinations Headache COVID-19 Altered mental status Septic shock Right bundle branch block Elevated troponin Elevated LFTs MICHAEL (acute kidney injury) Hyperkalemia Lactic acidosis COVID Respiratory failure with hypoxia and hypercapnia Hypoxemia Tobacco dependence Obesity Incontinence of urine HTN (hypertension) Hypertension Tobacco abuse Bipolar 1 disorder Diabetes Obstructive sleep apnea Obesity (BMI 30-39.9) Hyperlipidemia Schizophrenia Family History Other Adopted Social History Smoking/Tobacco Use Status: Current every day Tobacco Type: cigarettes Smoking packs per day: 0 Smoking cigarettes per day: 0.0 Years smoked: 30 Smoking pack- years: 0.00 Tobacco: How many years used: 30 Smoking risk assessment performed?: Yes Alcohol Intake: former Drug use: Never Substance use type: does not use Caregiver/Support person: No Household members: none Housing: snf Number of Children: 0 Communication Needs: Hard of Hearing and Corrective Lenses Education Level: high school Do you need help understanding health information?: Always current occupation: disabled due to mental illness Pets and animals: No Current gender identity: male What is your relationship status?: never How often do you talk on the phone with friends or family?: never How often do you get together with friends or relatives?: never Panel score (0-1 are the most socially isolated patients): 0 What type of physical activity do you participate in: none and sedentary lifestyle Frequency: does not exercise Special mannie needs: No Seatbelt use: always Do you feel safe at home: No Do you feel safe in your relationship?: Yes Additional Social history: Pt states he is not taken care of at his [facility]
[2023-06-08] MEDS: Lisinopril 20 MG TAB PO (19:45)
[2023-06-08] MEDS: Docusate Sodium 100 MG CAP PO (19:45)
[2023-06-08] MEDS: Albuterol/Ipratropium 3 ML UPD VIAL UPD (19:45)
[2023-06-08] MEDS: Budesonide/Formoterol 160/4.5 6 GM 60 PUFF INH IH (19:45)
[2023-06-08] MEDS: Normal Saline Flush 10 ML SYR IVP (20:06)
[2023-06-08] MEDS: Prazosin 1 MG CAP 3 MG PO (21:32)
[2023-06-08] MEDS: Divalproex Sodium 500 MG TAB.ER.24H 1000 MG PO (21:32)
[2023-06-08] MEDS: Atorvastatin 20 MG TAB PO (21:33)
[2023-06-08] MEDS: Acetaminophen 325 MG TAB PO (23:48)
[2023-06-09] VITALS (37 sets, daily range): BP systolic 98–149; BP diastolic 56–108; PULSE 49–95; RESP 5–27; TEMP 36.1–36.8; O2SAT 86–95
[2023-06-09] MEDS: Albuterol/Ipratropium 3 ML UPD VIAL UPD ×3 (02:16→17:30)
[2023-06-09] MEDS: Normal Saline 1,000 ML 75 ML IV (03:43)
[2023-06-09 06:10] LABS: HCT 49.7 % (40.0-50.0); HGB 15.4 g/dL (13.5-17.5); MCH 29.3 pg (27.0-33.0); MCV 95 fL (80-95); MPV 9.3 fL (8.0-11.0); Platelet Count 151 10^3/uL (130-400); RBC 5.25 10^6/uL (4.36-5.78); RDW 16.1 % (11.8-14.1); RDW-SD 56.5 fL; WBC 5.38 10^3/uL (4.4-10.8)
[2023-06-09 06:30] LABS: ALT 14 U/L (16-63); AST 11 U/L (15-37); Albumin 2.9 g/dL (3.4-5.0); Alkaline Phosphatase 64 U/L (46-116); Anion Gap 0.8 mmol/L (3-11); BUN 17 mg/dL (7-18); Bilirubin, Total 0.4 mg/dL (0.2-1.0); CO2 39.2 mmol/L (21.0-32.0); CREATININE 0.6 mg/dL (0.70-1.30); Calcium 8.3 mg/dL (8.5-10.1); Chloride 102 mmol/L (98-107); Estimated GFR 109.14 (mL/min/1.73m2); Glucose 145 mg/dL (74-106); Potassium 4.4 mmol/L (3.5-5.1); Sodium 142 mmol/L (136-145); Total Protein 5.6 g/dL (6.4-8.2)
--- NOTE | 2023-06-09 08:24 | INITIAL_ITS ---
Date of service: 06/09/23 Time of Service: 08:24 Care Management Initial Assmt Initial Assessment REASON FOR HOSPITALIZATION:: shortness of breath, respiratory failure PREVIOUS FUNCTIONAL STATUS/SOCIAL/FAMILY SUPPORTS:: Nathan lives at [facility] in [place], [place] He was previously housed in a hotel and finds [facility] much better. Nathan does not have any close relatives in the area. When asked who he has for support, he said no one. Nathan is independent with ADLs and is a [employer] client. CURRENT FUNCTIONAL STATUS:: Nathan was admitted over the weekend with respiratory failure and CHF. At home he has been non-compliant or at least inconsistent with use of his Bipap. He has been requiring Bipap in the hospital to maintain his oxygen saturation above 90%. He was trialed with a nasal cannula around noon today but returned to Bipap when his oxygen saturation dropped back into the 80's. Nathan was sleeping when CM came to see him and CM chose not to wake him. Per nursing, Nathan is less confused today than he was yesterday. ADVANCE DIRECTIVES:: On file. Gauri LAMAS Has patient been provided with info about the portal/API?: Yes Did the patient sign up for the portal?: No CODE STATUS:: Full Code INSURANCE COVERAGE / FINANCIAL ISSUES:: Medicare Medicaid CURRENT HOME/COMMUNITY SERVICES/EQUIPMENT:: [employer] client PRIMARY CARE PHYSICIAN:: Renée Flores POTENTIAL DISCHARGE NEEDS:: follow up withy PCP, Pulmonology and plan of care PATIENT/FAMILY EDUCATION NEEDS:: review of discharge instructions, activity. follow up plan, limitations, discuss [employer] TRANSPORTATION:: via private vehicle with [facility] staff vs RCT. PLAN:: Anticipate Nathan will be discharged back to [facility] when medically cleared. He will follow up with his community providers and plan of care and transport with family. CM will follow and continue to support discharge needs. PFSH All Active Problems (Updated 06/09/23 @ 12:06 by Konrad Sampson MD) Acute on chronic heart failure with preserved ejection fraction (HFpEF) (Acute) Diabetes (Chronic) Nicotine dependence, cigarettes, uncomplicated (Acute) Chronic respiratory failure with hypercapnia (Acute) Advanced care planning/counseling discussion (Acute) Palliative care patient (Acute) Elevated troponin I level (Acute) Chronic heart failure with preserved ejection fraction (HFpEF) (Acute) Cor pulmonale (chronic) (Acute) Acute respiratory failure with hypoxia and hypercarbia (Acute) Right upper quadrant abdominal pain (Acute) Chronic back pain (Acute) Gram-negative bacteremia (Acute) COPD exacerbation (Acute) Acute on chronic respiratory failure with hypoxia and hypercapnia (Acute) COPD (chronic obstructive pulmonary disease) (Chronic) Suicide ideation (Acute) Seborrheic dermatitis (Acute) Sleep apnea (Acute) Depression (Chronic) Supplemental oxygen dependent (Acute) Medical History Pneumonia Acute hypoxemic respiratory failure Respiratory insufficiency Hallucinations Headache COVID-19 Altered mental status Septic shock Right bundle branch block Elevated troponin Elevated LFTs MICHAEL (acute kidney injury) Hyperkalemia Lactic acidosis COVID Respiratory failure with hypoxia and hypercapnia Hypoxemia Tobacco dependence Obesity Incontinence of urine HTN (hypertension) Hypertension Tobacco abuse Bipolar 1 disorder Diabetes Obstructive sleep apnea Obesity (BMI 30-39.9) Hyperlipidemia Schizophrenia Family History Other Adopted Social History Smoking/Tobacco Use Status: Current every day Tobacco Type: cigarettes Smoking packs per day: 0 Smoking cigarettes per day: 0.0 Years smoked: 30 Smoking pack- years: 0.00 Tobacco: How many years used: 30 Smoking risk assessment performed?: Yes Alcohol Intake: former Drug use: Never Substance use type: does not use Caregiver/Support person: No Household members: none Housing: fdc Number of Children: 0 Communication Needs: Hard of Hearing and Corrective Lenses Education Level: high school Do you need help understanding health information?: Always current occupation: disabled due to mental illness Pets and animals: No Current gender identity: male What is your relationship status?: never How often do you talk on the phone with friends or family?: never How often do you get together with friends or relatives?: never Panel score (0-1 are the most socially isolated patients): 0 What type of physical activity do you participate in: none and sedentary lifestyle Frequency: does not exercise Special mannie needs: No Seatbelt use: always Do you feel safe at home: No Do you feel safe in your relationship?: Yes Additional Social history: Pt states he is not taken care of at his [facility] SDOH(Care Management) Screening Will the Patient Participate in the Screening?: Declined to provide
[2023-06-09 09:24] LABS: BE (Venous) 17 mmol/L (-2-3); HCO3 (Venous) 43 mmol/L (23-28); O2 Sat (Venous) 84 %; TCO2 (Venous) 38 mmol/L (24-29); pH (Venous) 7.35 (7.31-7.41); pO2 (Venous) 49 mmHg
[2023-06-09 09:25] LABS: pCO2 (Venous) 79 mmHg (41-51)
--- NOTE | 2023-06-09 09:46 | W.PM.PROGNOT ---
Date of Service Date of service: 06/09/23 Time of Service: 09:46 Assessment and Plan Assessment and plan (1) COPD exacerbation: Status: Acute Assessment and plan: patient given methylprednisolone in the ED yesterday, I will start on prednisone, continue aerosolized bronchodilators and support him w/ NIPPV while I diurese him. He had bilateral B lines on his lung US and has evidence of plethoric IVC w/ no respiratory variability. He does not appear to have acute infectious process. Critical care time spent interviewing and examining the patient, reviewing studies, discussing case with patient's nurse and consulting physicians was 45 minutes (2) Acute on chronic respiratory failure with hypoxia and hypercapnia: Status: Acute Assessment and plan: as above (3) Acute on chronic heart failure with preserved ejection fraction (HFpEF): Status: Acute Assessment and plan: patient has hx of grade II diastolic HF per his last echocardiogram from 03/21/23 and he appears to be in acute HF now based on his CXR, and POCUS exam. (4) Cor pulmonale (chronic): Status: Acute Assessment and plan: as above (5) Diabetes: Status: Chronic Assessment and plan: metformin on hold; will add sliding scale Novolog ac/hs along w/ fingerstick gluocse. also NPH added for coverage of prednisone. Qualifiers: Diabetes mellitus complication status: without complication Diabetes mellitus terminal makeup operator insulin use: without half-way use Diabetes mellitus type: type 2 Qualified Code(s): E11.9 - Type 2 diabetes mellitus without complications Subjective Subjective Interval history since last seen: Nathan is requiring increased NIPPV support, BIPAP increased from 14/5 and 35% to 16/8 and 40%. He was still gettting NS @ 75 mL/h of iv fluids. I have stopped his iv fluids. Exam Narrative Exam Narrative: Nathan is alert, answers questions appropriately, he does not appear to be in acute respiratory distress neck: obese difficult to discern JVD Lungs: bilateral rales at base, diffusely diminished breath sounds Heart: regular, no apprciable murmur but distant heart tones (rhythm on telemetry is NSR w/ PAC's) Abdomen: obese, soft, nontender Extremities: trace pedal/ankle edema Objective Last Vital Signs Temp 36.1 C L 06/09/23 08:01 Pulse 60 06/09/23 08:15 Resp 16 06/09/23 08:15 BP 116/85 06/09/23 08:01 Pulse Ox 88 L 06/09/23 08:15 Laboratory Results - last 24 hr 06/08/23 06/08/23 06/08/23 11:02 11:02 11:02 WBC 5.75 RBC 5.78 Hgb 17.2 Hct 56.9 H MCV 98 H MCH 29.8 MCHC 30.2 L RDW 16.5 H Plt Count 176 MPV 9.1 Immature Gran % 0.3 Neutrophils % 68.7 Lymphocytes % 20.3 Monocytes % 8.7 Eosinophils % 1.7 Basophils % 0.3 Nucleated RBC % 0.0 Absolute Neutrophils 3.94 Absolute Lymphocytes 1.17 L Absolute Monocytes 0.50 Absolute Eosinophils 0.10 Absolute Basophils 0.02 VBG pH 7.28 L VBG pCO2 99 H* VBG pO2 31 VBG HCO3 47 H VBG Total CO2 42 H VBG O2 Saturation 53 VBG Base Excess 20 H Sodium 144 Potassium 4.7 Chloride 100 Carbon Dioxide 44.6 H Anion Gap -0.6 L BUN 15 Creatinine 0.9 Est GFR (CKD-EPI 2020) 96.57 Glucose 172 H Calcium 8.9 Total Bilirubin 0.6 AST 10 L ALT 15 L Alkaline Phosphatase 76 Troponin I < 50 Cancelled NT-Pro-B Natriuret Pep 1082 H Cancelled Total Protein 6.7 Albumin 3.4 COVID-19 Source Nasopharynx SARS-CoV-2 (PCR) Negative Influenza Type A (PCR) Negative Influenza Type B (PCR) Negative RSV (PCR) Negative 06/08/23 06/08/23 06/09/23 12:36 13:55 05:45 WBC 5.38 RBC 5.25 Hgb 15.4 Hct 49.7 MCV 95 MCH 29.3 MCHC 31.0 L RDW 16.1 H Plt Count 151 MPV 9.3 Immature Gran % Neutrophils % Lymphocytes % Monocytes % Eosinophils % Basophils % Nucleated RBC % Absolute Neutrophils Absolute Lymphocytes Absolute Monocytes Absolute Eosinophils Absolute Basophils VBG pH 7.29 L VBG pCO2 96 H* VBG pO2 31 VBG HCO3 46 H VBG Total CO2 42 H VBG O2 Saturation 55 VBG Base Excess 20 H Sodium 142 Potassium 4.4 Chloride 102 Carbon Dioxide 39.2 H Anion Gap 0.8 L BUN 17 Creatinine 0.6 L Est GFR (CKD-EPI 2021) 109.14 Glucose 145 H Calcium 8.3 L Total Bilirubin 0.4 AST 11 L ALT 14 L Alkaline Phosphatase 64 Troponin I < 50 NT-Pro-B Natriuret Pep Total Protein 5.6 L Albumin 2.9 L COVID-19 Source SARS-CoV-2 (PCR) Influenza Type A (PCR) Influenza Type B (PCR) RSV (PCR) 06/09/23 09:17 WBC RBC Hgb Hct MCV MCH MCHC RDW Plt Count MPV Immature Gran % Neutrophils % Lymphocytes % Monocytes % Eosinophils % Basophils % Nucleated RBC % Absolute Neutrophils Absolute Lymphocytes Absolute Monocytes Absolute Eosinophils Absolute Basophils VBG pH 7.35 VBG pCO2 79 H* VBG pO2 49 VBG HCO3 43 H VBG Total CO2 38 H VBG O2 Saturation 84 VBG Base Excess 17 H Sodium Potassium Chloride Carbon Dioxide Anion Gap BUN Creatinine Est GFR (CKD-EPI 2020) Glucose Calcium Total Bilirubin AST ALT Alkaline Phosphatase Troponin I NT-Pro-B Natriuret Pep Total Protein Albumin COVID-19 Source SARS-CoV-2 (PCR) Influenza Type A (PCR) Influenza Type B (PCR) RSV (PCR) Time Spent with Patient Time Spent with Patient: 35-49 minutes Time was spent: preparing to see the patient(eg.review tests), obtaining and/or reviewing separately otained hiistory, ordering medications,tests, procedures, referring, communicating with other health career development counselor, indepentently interpreting results, counseling the patient and care coordination
[2023-06-09] MEDS: Furosemide 100 MG/10 ML VIAL 80 MG IVP (10:37)
--- NOTE | 2023-06-09 10:58 | W.POCUS ---
Pocus Exam Limited Thoracic Lung Exam DATE OF EXAM: 06/09/23 TIME OF EXAM: 09:19 PROVIDER THAT PERFORMED THE STUDY: Konrad Sampson IS THIS A REPEAT EXAM DURING THIS ENCOUNTER: No REASON FOR EXAM: Hypoxia and Shortness ofBreath VISUALIZED STRUCTURES: right anterior, left anterior, right lateral, left lateral, right subcostal and left subcostal PERTINENT FINDINGS/IMPRESSION: B-lines/left side thoracis location: lateral and posterior and B-lines/right side thoracis location: lateral and posterior; no pneumonia noted, no pleural effusion on the left and no pleural effusion on the right Exam complete
--- NOTE | 2023-06-09 11:00 | W.POCUS ---
Pocus Exam Limited Cardiac Exam DATE OF EXAM: 06/09/23 TIME OF EXAM: 09:53 REASON FOR EXAM: Dyspnea and Hypoxia VISUALIZED STRUCTURES: four chambers, LVOT, aortic valve, mitral valve, Interventricular septum and IVC VIEW OBTAINED: Apical 4-Chamber, Parasternal long-axis, Parasternal short-axis and Subxiphoid PERTINENT FINDINGS/IMPRESSION: Plethoric IVC, RV dilation (mild) and RV dysfunction (mild, TAPSE 15 mm, moderate pulmonary hypertension, RVSP estimated at 57 mm (TR V max 3.27 m/s, RAP estimated 15)); no IVC inspiratory collapsability, No LV dysfunction (moderate LVH) and No pericardial effusion Exam complete
[2023-06-09] MEDS: ARIPiprazole 15 MG TAB 30 MG PO (11:01)
[2023-06-09] MEDS: Lisinopril 20 MG TAB PO (11:01)
[2023-06-09] MEDS: Normal Saline Flush 10 ML SYR IVP ×2 (11:02→19:22)
[2023-06-09] MEDS: amLODIPine 5 MG TAB PO (11:02)
[2023-06-09] MEDS: Insulin NPH-Human 300 UNITS/3 ML PEN 15 UNIT SC (12:23)
[2023-06-09] MEDS: predniSONE 20 MG TAB 40 MG PO (12:24)
[2023-06-09] MEDS: Enoxaparin 40 MG/0.4 ML SYR SC (15:55)
[2023-06-09] MEDS: Furosemide 40 MG/4 ML VIAL IVP (15:55)
--- NOTE | 2023-06-09 16:32 | RESPIRATORY ---
RT inspected patient's home BiPAP machine that was brought in by [facility] and device missing power cord. RT notified nurse that we will be unable to use this due to the missing cord and patient to remain on hospital NIV
[2023-06-09 18:36] LABS: Anion Gap 1.2 mmol/L (3-11); BUN 20 mg/dL (7-18); CO2 43.8 mmol/L (21.0-32.0); CREATININE 0.8 mg/dL (0.70-1.30); Calcium 8.5 mg/dL (8.5-10.1); Chloride 96 mmol/L (98-107); Estimated GFR 100.06 (mL/min/1.73m2); Glucose 224 mg/dL (74-106); Magnesium 1.8 mg/dL (1.8-2.4); Potassium 4.1 mmol/L (3.5-5.1); Sodium 141 mmol/L (136-145)
[2023-06-09] MEDS: Budesonide/Formoterol 160/4.5 6 GM 60 PUFF INH IH (19:46)
[2023-06-09] MEDS: Divalproex Sodium 500 MG TAB.ER.24H 1000 MG PO (22:07)
[2023-06-09] MEDS: Atorvastatin 20 MG TAB PO (22:07)
[2023-06-09] MEDS: Prazosin 1 MG CAP 3 MG PO (22:07)
[2023-06-10] VITALS (39 sets, daily range): BP systolic 102–141; BP diastolic 67–88; PULSE 52–87; RESP 2–24; TEMP 36.5–36.9; O2SAT 85–94
[2023-06-10] MEDS: Albuterol/Ipratropium 3 ML UPD VIAL UPD ×5 (00:02→23:42)
[2023-06-10 07:09] LABS: Anion Gap 0.2 mmol/L (3-11); BUN 22 mg/dL (7-18); CO2 41.8 mmol/L (21.0-32.0); CREATININE 0.6 mg/dL (0.70-1.30); Calcium 8.5 mg/dL (8.5-10.1); Chloride 99 mmol/L (98-107); Estimated GFR 109.14 (mL/min/1.73m2); Glucose 119 mg/dL (74-106); Potassium 3.9 mmol/L (3.5-5.1); Sodium 141 mmol/L (136-145)
[2023-06-10] MEDS: Budesonide/Formoterol 160/4.5 6 GM 60 PUFF INH IH ×2 (07:53→19:44)
[2023-06-10] MEDS: Umeclidinium 7 CAP INHALER 1 CAP IH (07:53)
--- NOTE | 2023-06-10 08:25 | W.PM.PROGNOT ---
Date of Service Date of service: 06/10/23 Time of Service: : Assessment and Plan Assessment and plan (1) COPD exacerbation: Status: Acute Assessment and plan: Continue DuoNeb every 6 hours while awake, continue Symbicort, Incruse elliptica along with prednisone. Patient should wear BiPAP whenever he is asleep and as needed for respiratory fatigue. Will consult with physical therapy to begin strength training and gait training. Patient is medically stable can be transferred out of the intensive care unit to the medical/surgical floor. Continue with telemetry as we continue to diurese him. Professional time spent interviewing and examining patient, discussion of goals of care with hospital team (care management, nursing and consulting professionals) was 35 minutes. (2) Acute on chronic respiratory failure with hypoxia and hypercapnia: Status: Acute Assessment and plan: as above (3) Acute on chronic heart failure with preserved ejection fraction (HFpEF): Status: Acute Assessment and plan: Weight is down to 102 kg today. There is some question of discrepancy in his weights from yesterday today. Today's weight was taken with all the blankets off the bed. However I pointed out to nursing staff that both yesterday and the day before yesterday his weights were up compared to his baseline. His weights been having between 110 to 113 kg whereas his baseline is around 100 kg. He could benefit from continued diuretics however I think we can switch from IV Lasix to oral torsemide. Will add low-dose spironolactone to help maintain potassium balance. Continue to monitor daily weights intake and output. Patient has significant cor pulmonale with RV dilatation and tricuspid regurgitation and grade 2 diastolic dysfunction per his last echocardiogram from 03/21/2023. (4) Cor pulmonale (chronic): Status: Acute Assessment and plan: as above (5) Diabetes: Status: Chronic Assessment and plan: metformin on hold; will add sliding scale Novolog ac/hs along w/ fingerstick gluocse. also NPH added for coverage of prednisone. Qualifiers: Diabetes mellitus type: type 2 Diabetes mellitus retirement insulin use: without exterminator termite use Diabetes mellitus complication status: without complication Qualified Code(s): E11.9 - Type 2 diabetes mellitus without complications Subjective Subjective Interval history since last seen: Kamila feels somewhat better this morning he is less dyspneic. He is able to sit up and eat breakfast he has been weaned down on his oxygen to a nasal cannula at 5 L/min. He did wear his BiPAP mask throughout the night last night. Exam Narrative Exam Narrative: Arrives alert and oriented sitting up talking to nursing staff no acute respiratory distress. Able to talk in complete sentences without dyspnea. Lungs with diminished breath sounds at the bases no rhonchi or wheezing and I do not appreciate rales this morning. Heart is regular rate and rhythm no appreciable murmur rub or gallop Abdomen is obese soft nontender Lower extremities without peripheral cyanosis or edema Objective Last Vital Signs Temp 36.5 C 06/10/23 04:18 Pulse 53 L 06/10/23 07:29 Resp 4 L 06/10/23 07:29 BP 130/88 06/10/23 07:29 Pulse Ox 93 06/10/23 07:29 Laboratory Results - last 24 hr 06/09/23 06/09/23 06/10/23 09:17 18:14 05:50 VBG pH 7.35 VBG pCO2 79 H* VBG pO2 49 VBG HCO3 43 H VBG Total CO2 38 H VBG O2 Saturation 84 VBG Base Excess 17 H Sodium 141 141 Potassium 4.1 3.9 Chloride 96 L 99 Carbon Dioxide 43.8 H 41.8 H Anion Gap 1.2 L 0.2 L BUN 20 H 22 H Creatinine 0.8 0.6 L Est GFR (CKD-EPI 2020) 100.06 109.14 Glucose 224 H 119 H Calcium 8.5 8.5 Magnesium 1.8 Reviewed Pertinent PMH: Yes Time Spent with Patient Time Spent with Patient: 35-49 minutes Time was spent: preparing to see the patient(eg.review tests), ordering medications,tests, procedures, referring, communicating with other health neonatal intensive care nurse, indepentently interpreting results, counseling the patient and care coordination
[2023-06-10] MEDS: ARIPiprazole 15 MG TAB 30 MG PO (08:34)
[2023-06-10] MEDS: predniSONE 20 MG TAB 40 MG PO (08:34)
[2023-06-10] MEDS: amLODIPine 5 MG TAB PO (08:35)
[2023-06-10] MEDS: Insulin NPH-Human 300 UNITS/3 ML PEN 20 UNIT SC (08:36)
[2023-06-10] MEDS: Normal Saline Flush 10 ML SYR IVP ×2 (08:37→22:55)
[2023-06-10] MEDS: Protein Nutritional Supplement 16 GM 1 OUNCE PACKET PO ×2 (08:41→22:56)
[2023-06-10] MEDS: Torsemide 20 MG TAB PO (08:41)
[2023-06-10] MEDS: Spironolactone 25 MG TAB PO (08:41)
[2023-06-10] MEDS: Milk of Magnesia 30 ML CUP PO (08:42)
--- NOTE | 2023-06-10 08:57 | CMPROGNOTE_ITS ---
Date of service: 06/10/23 Time of Service: 08:58 Care Management Progress Note Progress Note Text Progress Note Text: S/O:Nathan was sitting up in bed when CM met with him. He appeared sad and, when asked how he is doing, stated not very good. He explained that he had fallen at [facility] and that he really hit hard and that it hurt. Nathan went on to explain that he has been unable to wear his cpap at home. He stated that it chokes him and pulls the air out of him. CM commented that he has been wearing bipap at the hospital and has been tolerating it fairly well. He agreed. CM learned that Nathan brought his own machine to the hospital however the power cord is missing. CM reached out to [facility] to see if someone would be able to bring in the cord so that his machine can be trialed here and adjusted if needed. Awaiting a call back. A:Nathan is a 63 year old man admitted on 06/08/23 with respiratory failure P:Anticipate Nathan will be discharged back to [facility] when medically cleared. He will follow up with his community providers and plan of care and transport with family. CM will follow and continue to support discharge needs. SDOH(Care Management) Screening Will the Patient Participate in the Screening?: Declined to provide
[2023-06-10] MEDS: Lisinopril 20 MG TAB PO (09:55)
[2023-06-10] MEDS: Enoxaparin 40 MG/0.4 ML SYR SC (16:57)
[2023-06-10] MEDS: Insulin Aspart 300 UNITS/3 ML PEN SC (16:57)
[2023-06-10] MEDS: Oxybutynin-CR 5 MG TABCR 30 MG PO (22:55)
[2023-06-10] MEDS: Prazosin 1 MG CAP 3 MG PO (22:57)
[2023-06-10] MEDS: Acetaminophen 325 MG TAB PO (22:57)
[2023-06-10] MEDS: Atorvastatin 20 MG TAB PO (22:57)
[2023-06-10] MEDS: Divalproex Sodium 500 MG TAB.ER.24H 1000 MG PO (22:57)
[2023-06-11] VITALS (20 sets, daily range): BP systolic 99–121; BP diastolic 66–80; PULSE 49–85; RESP 2–22; TEMP 36.2–36.6; O2SAT 86–95
--- NOTE | 2023-06-11 | DI.RAD_ITS ---
Exam(s) XR LUMBAR SPINE COMPLETE EXAM: XR LUMBAR SPINE COMPLETE CLINICAL HISTORY: chronic back pain; recent falls. TECHNIQUE: 2D digital imaging was performed. Five views. COMPARISON: No exams were available for comparison FINDINGS: BONES: No fracture or destructive lesion. Vertebral body heights are maintained. No facet hypertroph y identified. DISKS: Moderate narrowing of the L4-5 disc space. Small endplate osteophytes. The L5-S1 disc space is not well profiled. Endplate osteophytes noted at this level as well. Facet degenerative changes are present at L4-5 and L5-S1. The remaining intervertebral disc spaces are maintained. ALIGNMENT: Lumbar spinal alignment is within normal limits. SOFT TISSUE: The aorta is calcified and normal in diameter. IMPRESSION: Degenerative changes in the lower lumbar spine. No acute abnormality. DATA REPOSITORY: RADIATION DOSE DELIVERED:
[2023-06-11] MEDS: Albuterol/Ipratropium 3 ML UPD VIAL UPD ×3 (05:57→17:43)
[2023-06-11 07:39] LABS: Anion Gap 1.2 mmol/L (3-11); BUN 22 mg/dL (7-18); CO2 39.8 mmol/L (21.0-32.0); CREATININE 0.5 mg/dL (0.70-1.30); Calcium 8.4 mg/dL (8.5-10.1); Chloride 97 mmol/L (98-107); Estimated GFR 115.32 (mL/min/1.73m2); Glucose 116 mg/dL (74-106); NT-proBNP 397 pg/mL (<300); Potassium 3.7 mmol/L (3.5-5.1); Sodium 138 mmol/L (136-145)
[2023-06-11] MEDS: Budesonide/Formoterol 160/4.5 6 GM 60 PUFF INH IH ×2 (08:41→21:24)
[2023-06-11] MEDS: Umeclidinium 7 CAP INHALER 1 CAP IH (08:42)
--- NOTE | 2023-06-11 09:20 | CMPROGNOTE_ITS ---
Date of service: 06/11/23 Time of Service: 09:20 Care Management Progress Note Progress Note Text Progress Note Text: S/O:Nathan was sitting up in a chair when CM met with him. He stated that his breathing is better and that he was able to wear his Bipap again last night. The power cord to Nathan's own machine has not been brought in yet so he continues to use [facility] equipment. Nathan requested, and was given, a coloring book and colored pencils which he began to use a soon as he received them. He informed CM that he will likely be discharged tomorrow. CM reminded Nathan that new home health services for PT, OT ,RN and CATERERS HELPER will be ordered. A:Nathan is a 63 year old man admitted on 06/08/23 with respiratory failure P:Anticipate Nathan will be discharged back to [place] when medically cleared. He will follow up with his community providers and plan of care and transport with family. CM will follow and continue to support discharge needs. SDOH(Care Management) Screening Will the Patient Participate in the Screening?: Declined to provide
--- NOTE | 2023-06-11 10:04 | IN_ITS ---
PT Notes Visit Reasons: Acute chronic hypercapnia and hypoxic resp. failur Physical Therapy Inpatient Initial Evaluation Date: 06/11/2023 Referring Doctor: Konrad Sampson MD PT Orders: PT CONSULT: Exacerbation Chronic Cond Precautions: Fall. Standard. Activity as tolerated. On continuous BiPap at this time, off only for meals. Patient Profile/Admitting Diagnosis: Nathan is a 63-year-old male on palliative care admitted to the ED on 06/10/2023 due to repeated falls. He is admitted for continued management of rhabdomyolysis, elevated LFTs, fifteenths, MICHAEL, microcytic anemia, frequent falls, type II DM, CKD, hypothyroidism, and constipation. PMHX: All Active Problems (Updated 06/08/23 @ 13:00 by Rory Huerta MD) Diabetes (Chronic) Nicotine dependence, cigarettes, uncomplicated (Acute) Chronic respiratory failure with hypercapnia (Acute) Advanced care planning/counseling discussion (Acute) Palliative care patient (Acute) Elevated troponin I level (Acute) Chronic heart failure with preserved ejection fraction (HFpEF) (Acute) Cor pulmonale (chronic) (Acute) Acute respiratory failure with hypoxia and hypercarbia (Acute) Right upper quadrant abdominal pain (Acute) Chronic back pain (Acute) Gram-negative bacteremia (Acute) COPD exacerbation (Acute) Acute on chronic respiratory failure with hypoxia and hypercapnia (Acute) COPD (chronic obstructive pulmonary disease) (Chronic) Suicide ideation (Acute) Seborrheic dermatitis (Acute) Sleep apnea (Acute) Depression (Chronic) Supplemental oxygen dependent (Acute) Medical History Pneumonia Acute hypoxemic respiratory failure Respiratory insufficiency Hallucinations Headache COVID-19 Altered mental status Septic shock Right bundle branch block Elevated troponin Elevated LFTs MICHAEL (acute kidney injury) Hyperkalemia Lactic acidosis COVID Respiratory failure with hypoxia and hypercapnia Hypoxemia Tobacco dependence Obesity Incontinence of urine HTN (hypertension) Hypertension Tobacco abuse Bipolar 1 disorder Diabetes Obstructive sleep apnea Obesity (BMI 30-39.9) Hyperlipidemia Schizophrenia Social History/Home Situation: Resident of [facility]. Independent with mobility ADL performance using SPC. Equipment Owned/DME: [facility] Subjective: Still feels unwell but is better today. Agreeable to getting out of his bed and to being assessed for obility level. Objective: General Observation: Resting in bed. In NAD. Telemetry monitoring in place. The leg and feet swelling with right more affected. Mental Status: Alert and oriented as to person, place, time, and purpose. Able to pay attention but needs extra time to respond at times. Pain: Denies Vital Signs: Oxygen saturation of 91% while on BiPap ROM: Right Upper Extremity: Shoulder Flexion WFL. Shoulder abduction WFL. Wrist flexion WFL. Functional opening and closing of hand WFL. Left Upper Extremity: Shoulder Flexion WFL. Shoulder abduction WFL. Wrist flexion WFL. Functional opening and closing of hand WFL. Right Lower Extremity: Hip flexion up to 110 degrees. Hip abduction WFL. Knee flexion up to 100 degrees. Ankle dorsiflexion to neutral only. Ankle plantarflexion WFL. Left Lower Extremity: Hip flexion up to 110 degrees. Hip abduction WFL. Knee flexion up to 100 degrees. Ankle dorsiflexion to neutral only. Ankle plantarflexion WFL. Strength: Right Upper Extremity: Shoulder flexors 4-/5. Shoulder abductors 4-/5. Elbow flexors 4-/5. Elbow extensors 4-/5. Inserter weak but functional. Left Upper Extremity: Shoulder flexors 4-/5. Shoulder abductors 4-/5. Elbow flexors 4-/5. Elbow extensors 4-/5. Inserter weak but functional. Right Lower Extremity: Hip flexors 3-/5. Hip abductors 4-/5. Knee flexors 3-/5. Knee extensors 4-/5. Ankle dorsiflexors 3-/5. Ankle plantarflexors 4-/5. Left Lower Extremity: Hip flexors 3-/5. Hip abductors 4-/5. Knee flexors 3-/5. Knee extensors 4-/5. Ankle dorsiflexors 3-/5. Ankle plantarflexors 4-/5. Bed Mobility/Transfers: Minimal cueing provided for use of B hands as needed for support, movement sequence, AD management, and posture to reduce fall risk and minimize pain report Sit to stand contact guard assist Stand to sit stand by assist Bed to reclining chair stand by assist Reclining chair to bed stand by assist Gait: Instructed patient with level surface ambulation using FWW of 8 steps requiring contact guard assist. Sadie decreased. Step height decreased. Step length decreased. No shortness of breath but oxygen saturation remained above 91% throughout. No loss of balance. Balance: Static Sitting: Normal Dynamic Sitting: Normal Static Standing: Fair while holding Dynamic Standing: Fair Special Tests: Mobility Limitations Standardized Measure [facility] AM-PAC 6 clicks Basic Mobility Inpatient Short Form: Raw Score: 20 CMS Score: 36% deficit 4-Stage Balance test: Feet together 10 seconds Semi-tandem <10 seconds Full tandem <10 seconds One-egged stance <10 seconds Swallowing Informed Consent/Education: Patient was instructed in purpose of PT consult and plan of care. Agreeable to proceed with established PT POC to achieve personal goals. Assessment: Patient presents with clinical signs and symptoms consistent with current/admitting diagnoses that have resulted to mobility limitations, gait instability, generalized weakness, and overall ADL decline as demonstrated by the following impairment level findings: 1. Decreased strength to B UE/LE major muscle groups 2. Impaired standing balance 3. Impaired activity tolerance 4. Limitation of joint range of motion in hip and knee for flexion 5. Swelling in B legs and feet Impairments are contributing to the following functional limitations: 1. Difficulty with ambulation without assistive device and physical assistance 2. Increased completion time for mobility ADL performance 3. Increased risk for falls 4. Difficulty with managing steps alone safely Patient is assessed as a 82084 moderate complexity based on the following: History: 61-year-old male with past medical history as indicated above Examination: Demonstrable impairment in strength, balance, and mobility level with underlying impairments and functional limitations as exhibited above as well as deficit score of 11% utilizing the [facility] Mobility Inpatient Short Form Presentation: Evolving Decision Makin moderate complexity Goals: Goals X1 week 1. Supine-Sit independent 2. Sit-Supine independent 3. Sit-Stand independent 4. Stand-Sit independent with FWW 5. Bed-Chair independent with FWW 6. Chair-Bed independent with FWW 7. Independent gait on level surface with use ofFWW for at least 300 feet without report of pain nor dyspnea 9. Good static and dynamic standing balance/tolerance Plan of Care/Treatment Plan: 1-2x/day, 7 days/week x 1 week. Plan of care has been reviewed with the CHART READER providing the service under Physical Therapy direction. Initiate Physical Therapy intervention for pain management as needed, strengthening, bed mobility, transfers, gait, stairs, balance training, and use of assistive device. DISCHARGE RECOMMENDATIONS: [] Home with no services [] [X] Home with services. Home when medically cleared by hospitalist. Recommend patient will benefit from home health PT services in order to progress mobility level using SPC, assess home safety, identify additional equipment needs, and establish a functional maintenance program that will increase ability of patient to remain at home. [] Home with outpatient PT [] [] SNF for continued rehabilitation [] [] Cleaning And Maintenance Worker Care [] [] SNF versus LTC based on ability to participate and progress [] TREATMENT CODE/TIME: 22154 x 16 minutes for 1 unit (9:46-10:02) Thank you for the opportunity to participate in the care of this patient. Faith Brown PT, DPT, CLT [facility] [place], [place]
[2023-06-11] MEDS: Azithromycin 250 MG TAB PO (10:20)
[2023-06-11] MEDS: Cyanocobalamin 500 MCG TAB 1000 MCG PO (10:21)
[2023-06-11] MEDS: predniSONE 20 MG TAB 40 MG PO (10:21)
[2023-06-11] MEDS: Lisinopril 20 MG TAB PO (10:22)
[2023-06-11] MEDS: Torsemide 20 MG TAB PO (10:22)
[2023-06-11] MEDS: amLODIPine 5 MG TAB PO (10:22)
[2023-06-11] MEDS: Spironolactone 25 MG TAB PO (10:22)
[2023-06-11] MEDS: Cholecalciferol (Vitamin D3) 1,000 UNIT TAB 1000 UNITS PO (10:22)
[2023-06-11] MEDS: ARIPiprazole 15 MG TAB 30 MG PO (10:23)
[2023-06-11] MEDS: Insulin Aspart 300 UNITS/3 ML PEN SC ×3 (10:27→22:07)
[2023-06-11] MEDS: Insulin NPH-Human 300 UNITS/3 ML PEN 20 UNIT SC (10:28)
[2023-06-11] MEDS: Protein Nutritional Supplement 16 GM 1 OUNCE PACKET PO ×3 (10:45→22:13)
[2023-06-11] MEDS: Normal Saline Flush 10 ML SYR IVP ×2 (10:45→22:47)
--- NOTE | 2023-06-11 10:53 | W.PM.PROGNOT ---
Date of Service Date of service: 06/11/23 Time of Service: 10:53 Assessment and Plan Assessment and plan (1) COPD exacerbation: Status: Acute Assessment and plan: continue DuoNeb treatments, Symbicort, Incruse Ellipta and prednisone. continue BIPAP while asleep and whenever he fatigues. He needs to be more compliant w/ use of his BIPAP at [place]. He admits that he quit using this for couple of days. When he is discharged home, I will send him on prednisone taper. (2) Acute on chronic respiratory failure with hypoxia and hypercapnia: Status: Acute Assessment and plan: as above (3) Acute on chronic heart failure with preserved ejection fraction (HFpEF): Status: Acute Assessment and plan: Patient has HFPEF w/ LVEF 65% and grade 2 diastolic dysfunction but has cor pulmonale w/ dilate RV w/ apical hypokinesis and moderate TR. His respitory symptoms have improved significantly since being put on diuretics. I will plan for discharge in the next 24 hours on ongoing diuretics (currently on torsemide and spironolactone). BNP has declined to 397 (4) Cor pulmonale (chronic): Status: Acute Assessment and plan: as above (5) Diabetes: Status: Chronic Assessment and plan: metformin on hold; will add sliding scale Novolog ac/hs along w/ fingerstick gluocse. also NPH added for coverage of prednisone. Qualifiers: Diabetes mellitus type: type 2 Diabetes mellitus predatory animal exterminator insulin use: without predatory animal exterminator use Diabetes mellitus complication status: without complication Qualified Code(s): E11.9 - Type 2 diabetes mellitus without complications Subjective Subjective Interval history since last seen: Nathan says that his dyspnea is improved. However, he says that his lower back hurts. This is a chronic problem for him. However, he says that he was having falls at [place]. I told him that I will order LS xray. I told him that I think his respiratory failure has improved enough that we ought to be able to get him home soon. Exam Narrative Exam Narrative: Nathan is alert and oriented x 3, no dyspnea w/ prolonged conversation. Lungs: clear; no rhonchi or wheezing Heart: RRR, no murmur or rub Abdomen: soft, nontender, obese Extremities: no edema Objective Last Vital Signs Temp 36.2 C L 06/11/23 04:01 Pulse 58 L 06/11/23 08:01 Resp 15 06/11/23 08:01 BP 113/66 06/11/23 08:01 Pulse Ox 88 L 06/11/23 08:25 Laboratory Results - last 24 hr 06/11/23 05:50 Sodium 138 Potassium 3.7 Chloride 97 L Carbon Dioxide 39.8 H Anion Gap 1.2 L BUN 22 H Creatinine 0.5 L Est GFR (CKD-EPI 2020) 115.32 Glucose 116 H Calcium 8.4 L NT-Pro-B Natriuret Pep 397 H Time Spent with Patient Time Spent with Patient: 25-34 minutes Time was spent: preparing to see the patient(eg.review tests), ordering medications,tests, procedures, referring, communicating with other health hospice care transitions coordinator, indepentently interpreting results, counseling the patient and care coordination
[2023-06-11 12:10] LABS: BE (Venous) 19 mmol/L (-2-3); HCO3 (Venous) 43 mmol/L (23-28); O2 Sat (Venous) 86 %; TCO2 (Venous) 37 mmol/L (24-29); pH (Venous) 7.42 (7.31-7.41); pO2 (Venous) 50 mmHg
[2023-06-11 12:14] LABS: pCO2 (Venous) 67 mmHg (41-51)
[2023-06-11] MEDS: Acetaminophen 500 MG TAB 1000 MG PO ×2 (13:53→22:13)
[2023-06-11] MEDS: Diclofenac 1% Gel 100 GM TUBE TP ×2 (14:11→17:19)
--- NOTE | 2023-06-11 15:02 | PT.INTREAT ---
PT Notes Visit Reasons: Acute chronic hypercapnia and hypoxic resp. failur Inpatient Physical Therapy Treatment Note [facility] Date: 06/11/23 SUBJECTIVE: Nathan states that he thinks he is going home tomorrow am. He reports not feeling ready to go, stating he is a little unsteady. He did report feeling better after PT this am. OBJECTIVE: []? VITALS: ? Pre-Treatment: 02 stats 77% on room air. apparently he removed his oxygen. Nurse put on hiflow O2 at 8L. O2 sat at 82%. nurse felt ok to go for walk. ? Post-Treatment: 91% nurse turned hiflow down to 4L. Therapeutic Activities (67979bc/c): Direct one-on-one instruction in dynamic activities to improve functional performance. ? BED MOBILITY/TRANSFERS? pt seated in chair. ? Sit-stand: SBA ? Stand-sit: SBA? Provided skilled cues and instruction on performance and technique throughout. cues for proper mvmt sequencing. ? Therapeutic Exercises (48433h2): Direct one-on-one instruction in therapeutic exercises to develop strength, endurance, range of motion and flexibility. ? Exercises ?seated: march x20, LAQ x15 ea. AP x15. Hip ADD squeeze x10 Ambulation ? Assistive Device: FWW? Weight bearing: full Assist: CGA? Distance:? approx 20'? Deviation: postural cues given. Slow elda. ? Provided skilled instruction in proper exercise performance ASSESSMENT:? tolerated session well despite low O2 sats. Did seem a little unsteady towards end of his walk, but able to safely return to chair. PLAN: will continue to work on his strength and functional mobility to tolerance. TREATMENT CODE/TIME: 15 min. [id number]
--- NOTE | 2023-06-11 17:02 | PHA.REVIEW2 ---
Pharmacy Admission Review Admission Clinical Review Admission Pharmacy Review: Acute on chronic heart failure with preserved ejection fraction (HFpEF) (Acute) Cor pulmonale (chronic) (Acute) COPD exacerbation (Acute) Acute on chronic respiratory failure with hypoxia and hypercapnia (Acute) Supplemental oxygen dependent (Acute) Penicillins Allergy (Severe, Unverified 06/08/23 10:57) Anaphylaxis dextromethorphan [From Dimetapp Cold-Congestion] Allergy (Mild, Unverified 06/08/23 10:57) Skin Rash diphenhydramine [From Dimetapp Cold-Congestion] Allergy (Mild, Unverified 06/08/23 10:57) Skin Rash guaifenesin [From Dimetapp Cold-Congestion] Allergy (Mild, Unverified 06/08/23 10:57) Skin Rash phenylephrine [From Dimetapp Cold-Congestion] Allergy (Mild, Unverified 06/08/23 10:57) Skin Rash pseudoephedrine [From Dimetapp Cold-Congestion] Allergy (Mild, Unverified 06/08/23 10:57) Skin Rash bupropion [From Wellbutrin] Adverse Reaction (Intermediate, Unverified 06/08/23 10:57) Other (See Comment) Resuscitation Status Full Code Height 5 ft 10 in Weight 106 kg Pharmacy Admission Review Renal Dosing Renal Dosing: BUN 22 mg/dL (7-18) H 06/11/23 05:50 Creatinine 0.5 mg/dL (0.70-1.30) L 06/11/23 05:50 Medications needing adjustments: Reviewed (CrCl 93.38 mL/min) Anticoagulation Anticoagulation: Hgb 15.4 g/dL (13.5-17.5) 06/09/23 05:45 Hct 49.7 % (40.0-50.0) 06/09/23 05:45 Plt Count 151 10^3/uL (130-400) 06/09/23 05:45 Creatinine 0.5 mg/dL (0.70-1.30) L 06/11/23 05:50 DVT Prophylaxis: Reviewed Medications: Enoxaparin (40mg daily) Relevant Labs Relevant Labs: Sodium 138 mmol/L (136-145) 06/11/23 05:50 Potassium 3.7 mmol/L (3.5-5.1) 06/11/23 05:50 Chloride 97 mmol/L (98-107) L 06/11/23 05:50 Magnesium 1.8 mg/dL (1.8-2.4) 06/09/23 18:14 Electrolytes, C-Reactive P, ESR: Reviewed DM Control DM Control: Glucose 116 mg/dL (74-106) H 06/11/23 05:50 Finger Stick Blood Glucose 117 1136 Finger Stick Blood Glucose 117 1136 DM Control: Reviewed Insulin Dosing, Diabetic Medication: Has order for SS insulin and insulin NPH-Human to cover while on prednisone. Cardiac Review Cardiac Review: Troponin I < 50 ng/L (< or =60) 06/08/23 13:55 NT-Pro-B Natriuret Pep 397 pg/mL (<300) H 06/11/23 05:50 BP, HR, EF%: Reviewed (HR and BP WNL, Ox 88 L) QTc Review QTc: Reviewed (423 from 06/08/23) IV to PO Switch IV Medications: Reviewed Home Meds Home Med List reviewed: Reviewed Relevent Home Meds Not ordered & why?: Metformin (on hold per H+P) Current Meds Current Medication Order Review: Reviewed
[2023-06-11] MEDS: Enoxaparin 40 MG/0.4 ML SYR SC (17:17)
[2023-06-11] MEDS: Oxybutynin-CR 5 MG TABCR 30 MG PO (22:09)
[2023-06-11] MEDS: Atorvastatin 20 MG TAB PO (22:10)
[2023-06-11] MEDS: Prazosin 1 MG CAP 3 MG PO (22:11)
[2023-06-11] MEDS: Divalproex Sodium 500 MG TAB.ER.24H 1000 MG PO (22:12)
[2023-06-12 01:57] VITALS: RESP 16; O2SAT 91
[2023-06-12 05:55] VITALS: RESP 16; O2SAT 95
[2023-06-12 06:53] LABS: Anion Gap 2.6 mmol/L (3-11); BUN 26 mg/dL (7-18); CO2 40.4 mmol/L (21.0-32.0); CREATININE 0.6 mg/dL (0.70-1.30); Calcium 8.3 mg/dL (8.5-10.1); Chloride 100 mmol/L (98-107); Estimated GFR 109.14 (mL/min/1.73m2); Glucose 114 mg/dL (74-106); Potassium 4.2 mmol/L (3.5-5.1); Sodium 143 mmol/L (136-145)
[2023-06-12] MEDS: Umeclidinium 7 CAP INHALER 1 CAP IH (07:47)
[2023-06-12] MEDS: Budesonide/Formoterol 160/4.5 6 GM 60 PUFF INH IH (07:48)
[2023-06-12] MEDS: ARIPiprazole 15 MG TAB 30 MG PO (08:16)
[2023-06-12] MEDS: Cyanocobalamin 500 MCG TAB 1000 MCG PO (08:16)
[2023-06-12 08:17] VITALS: BP 115/71; PULSE 63; O2SAT 90
[2023-06-12] MEDS: Acetaminophen 500 MG TAB 1000 MG PO ×2 (08:17→13:49)
[2023-06-12] MEDS: predniSONE 20 MG TAB 40 MG PO (08:17)
[2023-06-12] MEDS: Spironolactone 25 MG TAB PO (08:18)
[2023-06-12] MEDS: Azithromycin 250 MG TAB PO (08:18)
[2023-06-12] MEDS: Torsemide 20 MG TAB PO (08:19)
[2023-06-12] MEDS: amLODIPine 5 MG TAB PO (08:19)
[2023-06-12] MEDS: Protein Nutritional Supplement 16 GM 1 OUNCE PACKET PO ×2 (08:19→13:49)
[2023-06-12] MEDS: Cholecalciferol (Vitamin D3) 1,000 UNIT TAB 1000 UNITS PO (08:19)
[2023-06-12] MEDS: Docusate Sodium 100 MG CAP PO (08:19)
[2023-06-12] MEDS: Diclofenac 1% Gel 100 GM TUBE TP ×2 (08:20→12:07)
[2023-06-12] MEDS: Insulin NPH-Human 300 UNITS/3 ML PEN 20 UNIT SC (08:20)
[2023-06-12] MEDS: Normal Saline Flush 10 ML SYR IVP (08:21)
--- NOTE | 2023-06-12 08:56 | PDOC.CMPRO ---
Date of service: 06/12/23 Time of Service: 08:59 SDOH(Care Management) Screening Will the Patient Participate in the Screening?: Declined to provide
--- NOTE | 2023-06-12 10:54 | PT.INTREAT ---
PT Notes Visit Reasons: Acute chronic hypercapnia and hypoxic resp. failur Inpatient Physical Therapy Treatment Note [facility] Date: 06/12/23 PRECAUTIONS:Standard OBJECTIVE: Therapeutic Activities ([id number][1]): Direct one-on-one instruction in dynamic activities to improve functional performance. ? BED MOBILITY/TRANSFERS? Sit-stand: SBA? Stand-sit: SBA ? Provided skilled cues and instruction on performance and technique throughout. Gait Training ([id number][]): Direct one-on-one instruction and skilled instruction in: ? GAIT? Assistive Device: FWW? Weight bearing: Full Assist: SBA? Distance:? Marching in place and static standing for as long as can tolerate. Pt required 3 seated rests post each standing. ? Therapeutic Exercises (43659o[1]): Direct one-on-one instruction in therapeutic exercises to develop strength, endurance, range of motion and flexibility. ? Exercises ? Seated Rowing x 20 Seated shoulder flexion x 10 Seated shoulder horizontal abd x 20 Seated LAQ x 20 Seated hip abd x 10 Seated HR/TR x 10 oxygen 89%-90% during session with 4L oxygen ASSESSMENT:? Pt required vc's with seated ther ex. Pt fatigued fairly quickly. PLAN: Pt is being discharged this afternoon. TREATMENT CODE/TIME: 10:23-10:53 (30) MARIA ALEJANDRA PIERRE
[2023-06-12 11:45] VITALS: RESP 9
[2023-06-12] MEDS: Albuterol/Ipratropium 3 ML UPD VIAL UPD (11:45)
--- NOTE | 2023-06-12 11:57 | CMDISCH_ITS ---
Date of service: 06/12/23 Time of Service: 11:57 LACE Index Scoring Tool Questions: Length of Stay (in days): 4 - 6 Comorbidities: Diabetes w/o Complication and Chronic Pulmonary Disease (Chronic Respiratory failure with hypoxia and hypercapnia) E.D. Visits: 5 Care Management Discharge Plan Reason for Hospitalization: shortness of breath, respiratory failure Discharge Plan: Nathan will discharge back to [place] via [facility] private vehicle. New [facility] PT services are ordered. Nathan will follow up with community providers and his discharge plan of care as instructed. Patient/Family Education Needs: Review discharge instructions, limitations, medications and plan to follow up with Services Needed at Discharge: Home Health Care Services (H PT) and Transportation ([facility] private vehicle is coordinated by CM) SDOH Health Related Social Needs: Health related social needs risk of homeless, food ins ecurity, transpo insecurity, material hardship, personal safety
[2023-06-12 12:51] VITALS: BP 113/72; PULSE 70; O2SAT 87
[2023-06-12] MEDS: Polyethylene Glycol 3350 17 GM PACKET PO (13:49)
--- NOTE | 2023-06-12 13:55 | DSE_ITS ---
Date of service: 06/12/23 Time of Service: 13:55 DS: Diagnosis Discharge Diagnosis (1) COPD exacerbation: Status: Acute (2) Acute on chronic respiratory failure with hypoxia and hypercapnia: Status: Acute (3) Acute on chronic heart failure with preserved ejection fraction (HFpEF): Status: Acute (4) Cor pulmonale (chronic): Status: Acute (5) Diabetes: Status: Chronic Discharge Plan Disposition Patient Disposition: Home W/Home Health Services Condition: Improving Discharge Details Reason For Visit: Acute chronic hypercapnia and hypoxic resp. failur Admit Date/Time: 06/08/23 12:52 Admit Provider: Rory Huerta Attending Provider: Rory Huerta Primary Care Provider: MIMI PEREZ Hospital Course Hospital Course: See admission H&P as well as emergency room note for details of patient's presentation. This 63-year-old male with a history of COPD with chronic hypoxic respiratory failure, JEREMIAS who chronically is on a BiPAP device at his assisted living residence presents with progressive dyspnea not associated with any fever or chills or purulent sputum production was noted to be in acute exacerbation of his COPD. As the patient had a history of falls at his assisted living center CT of his head was done and was found to be negative for any acute intracranial process. Chest 2 Views suggested bibasilar infiltrates versus pulmonary edema although this was not initially appreciated on admission. Subsequently I performed a POCUS exam of his lungs found he had diffuse bilateral B-lines and patient was subsequently started on IV Lasix and transition over to oral torsemide and spironolactone. He had a recent echocardiogram done earlier this year that showed evidence of diastolic heart failure grade 2. Therefore you should remain on oral diuretics to prevent congestive heart failure. He had a good diuretic response this improved your work of breathing significantly. Your COPD was treated with aerosolized bronchodilators and IV corticosteroids and we transitioned over to a tapering dose of prednisone. Patient should have a follow-up BMP checked within a week to monitor electrolytes and renal function while on oral diuretics. After diuresis his weight dropped from an admission weight of 112.2 kg down to 106 kg. Patient was able to be successfully weaned off of continuous BiPAP down to nasal cannula at 4 to 5 L/min at rest however patient should still wear his BiPAP whenever he is sleeping and particularly at night. BiPAP should also be applied should the patient develop any respiratory fatigue during the day. After diuresis is discharge labs showed a BUN of 26 creatinine 0.6 with a normal potassium 4.2. His proBNP was is high as 1082 and after diuresis came down to 397. Follow-up echocardiogram was not performed as wanted just been done 2 months prior and showed mildly dilated left atrium moderately dilated right atrium normal left and right ventricular size P.I.C.C. concentric LVH with grade 2 diastolic dysfunction. Patient should continue on oral diuretics with close monitoring of his blood pressure his weight and periodic labs to monitor renal function and electrolytes. Home Meds and New Rx's Prescriptions: New torsemide 20 mg Tablet 20 mg PO DAILY Qty: 30 0RF spironolactone 25 mg Tablet 25 mg PO DAILY Qty: 30 0RF prednisone 20 mg tablet See Rx Instructions .ROUTE .COMPLEX Qty: 9 0RF Rx Instructions: 30 mg daily x 3 days, then 20 mg/d x 3d, then 10 mg/d x 3d Continued metformin 750 mg tablet extended release 24 hr 750 mg PO DAILY Incruse Ellipta 62.5 mcg/actuation blister with device 1 inh inhalation DAILY Hold Instructions: Pt Stopped/Never Started ipratropium-albuterol 0.5 mg-3 mg(2.5 mg base)/3 mL solution for nebulization 3 ml inhalation Q4H PRN (Reason: wheezing) Qty: 540 12RF atorvastatin 20 mg tablet 20 mg PO HS azithromycin 250 mg tablet 250 mg PO DAILY Qty: 60 7RF Hold Instructions: hold until completed course of levofloxacin nystatin 100,000 unit/gram powder 1 applic topical BID oxybutynin chloride 15 mg tablet extended release 24hr 30 mg PO QHS Qty: 180 3RF aripiprazole 30 mg tablet 30 mg PO DAILY budesonide-formoterol [Symbicort] 160-4.5 mcg/actuation HFA aerosol inhaler See Rx Instructions .ROUTE .COMPLEX Rx Instructions: 2 puffs BID prazosin 1 mg capsule 3 mg PO HS amlodipine 5 mg tablet 5 mg PO DAILY cyanocobalamin (vitamin B-12) [Vitamin B-12] 5,000 mcg Tablet, Sublingual 5,000 mcg SUBLINGUAL DAILY divalproex 500 mg tablet extended release 24 hr 1,000 mg PO HS cholecalciferol (vitamin D3) [Vitamin D3] 25 mcg (1,000 unit) capsule 1,000 unit PO DAILY albuterol sulfate 90 mcg/actuation HFA aerosol inhaler 2 inh inhalation Q6H PRN Changed lisinopril 20 mg tablet 10 mg PO DAILY Qty: 0 0RF No Action (DME) blood-glucose meter Misc See Rx Instructions .Route Rx Instructions: As directed (DME) Disposable Brief Jumbo X-Large Misc See Rx Instructions .Route Rx Instructions: As directed (DME) Blood Glucose Test Strip See Rx Instructions .Route Rx Instructions: As directed (DME) lancets [OneTouch UltraSoft Lancets] Misc See Rx Instructions .Route Rx Instructions: As directed (DME) oxygen and supplies 3 liters 0 .Route .MEDSUPPLY Discharge Instructions Instructions: Chronic Lung Disease and Infection Prevention (DC), Energy Conservation Techniques (DC), Nutrition Guidelines for People with COPD (DC) Additional Instructions: You were treated for acute on chronic respiratory failure w/ low oxygen levels and elevated carbon dioxide levels, this was due to your COPD and sleep apnea and failure to regularly use your BIPAP at home on a consistent basis. You also have diastolic congestive heart failure and required diuretics. We have treated your COPD w/ aerosolized bronchodilators, iv steroids (now on a taper dose of prednisone) and treated your heart failure w/ iv diuretics now on oral diuretics (torsemide and spironolactone). Please get your new prescriptions filled and follow up w/ your primary care provider who will need to recheck labs to follow up on your electrolytes and kidney function while on diuretics. We reduced your dose of lisinopril as your blood pressure could not tolerate your current dose of 20 mg twice a day. WE reduced this to 10 mg daily and you should have your blood pressure checked daily. Referrals: MIMI PEREZ, THREAD CLIPPER [Primary Care Provider] - Activity:: Activity as Tolerated Equipment/Supplies:: No Equipment Needed Diet:: Carb Counting Discharge Orders Discharge Orders: Discharge Order (Routine); Ordered 06/12/23 Ordered By: Konrad Sampson DS: Summary Time Spent with Patient providing and/or coordinating discharge services: Greater than 30 minutes Specific discharge activities: Interview/exam of patient; review of discharge instructions, completion of prescriptions/discharge instructions; discussion w/ nursing and CM; documentation of hospital visit Status at Discharge Functional status at discharge: uses cane/walker Overall status at discharge: patient is back to baseline Mental Status: mental status grossly normal Speech and Movement: speech and movement normal Mood: congruent mood Affect: normal affect Quality:SDOH Health Related Social Needs: Health related social needs risk of homeless, food ins ecurity, transpo insecurity, material hardship, personal safety Exam Narrative Exam Narrative: Nathan sitting up in his chair no acute distress able to talk in complete paragraphs without dyspnea sitting up watching TV. Lungs: clear w/ prolonged expiratory phase, no rales or wheezing or rhonchi Heart: RRR, no murmur or rub or gallop Abdomen: obese, soft, nontender Legs/feet: no edema Psych Mental Status: mental status grossly normal Speech and Movement: speech and movement normal Mood: congruent mood Affect: normal affect DS: Data Vitals/I&O Vitals and I&O: Vital Signs Temperature 36.6 C 06/11/23 22:46 Temperature Source Temporal Artery Scan 06/10/23 20:23 Pulse 63 06/12/23 08:17 Pulse Rhythm Regular 06/12/23 09:30 Pulse 80 06/11/23 16:01 Respiratory Rate 16 06/12/23 05:55 Respiratory Effort Normal, Non-Labored 06/12/23 09:30 Respiratory Depth Normal 06/12/23 09:30 Respiratory Pattern Normal 06/12/23 09:30 Blood Pressure 115/71 06/12/23 08:17 Blood Pressure Mean 82 06/12/23 08:17 Blood Pressure Position Supine 06/10/23 04:18 Pulse Oximetry 90 L 06/12/23 08:17 Oxygen Delivery Method Nasal Cannula 06/12/23 11:45 Oxygen Flow Rate 5 06/12/23 11:45 Fraction of Inspired Oxygen (FIO2) 40 06/12/23 05:55 Pain Level 8 06/12/23 13:49 Intake & Output 06/11/23 06/12/23 06/12/23 23:59 11:59 23:59 Intake Total 1350 / 1590 370 / 790 420 / 790 Output Total 1450 / 2350 400 / 400 Balance -100 / -760 370 / 390 20 / 390 Intake: IV Oral 1350 / 1590 360 / 780 420 / 780 Output: Urine 1450 / 2350 400 / 400 Other: Urine Color Yellow Pale Yellow Urine Appearance Clear Clear Urine Odor Normal Voiding Methods Urinal Data Completed and Pending Labs on day of discharge: Labs from last 24 hours 06/12/23 05:57 Sodium 143 Potassium 4.2 Chloride 100 Carbon Dioxide 40.4 H Anion Gap 2.6 L BUN 26 H Creatinine 0.6 L Est GFR (CKD-EPI 2020) 109.14 Glucose 114 H Calcium 8.3 L PFSH All Active Problems Acute on chronic heart failure with preserved ejection fraction (HFpEF) (Acute) Diabetes (Chronic) Nicotine dependence, cigarettes, uncomplicated (Acute) Chronic respiratory failure with hypercapnia (Acute) Advanced care planning/counseling discussion (Acute) Palliative care patient (Acute) Elevated troponin I level (Acute) Chronic heart failure with preserved ejection fraction (HFpEF) (Acute) Cor pulmonale (chronic) (Acute) Acute respiratory failure with hypoxia and hypercarbia (Acute) Right upper quadrant abdominal pain (Acute) Chronic back pain (Acute) Gram-negative bacteremia (Acute) COPD exacerbation (Acute) Acute on chronic respiratory failure with hypoxia and hypercapnia (Acute) COPD (chronic obstructive pulmonary disease) (Chronic) Suicide ideation (Acute) Seborrheic dermatitis (Acute) Sleep apnea (Acute) Depression (Chronic) Supplemental oxygen dependent (Acute) Medical History Pneumonia Acute hypoxemic respiratory failure Respiratory insufficiency Hallucinations Headache COVID-19 Altered mental status Septic shock Right bundle branch block Elevated troponin Elevated LFTs MICHAEL (acute kidney injury) Hyperkalemia Lactic acidosis COVID Respiratory failure with hypoxia and hypercapnia Hypoxemia Tobacco dependence Obesity Incontinence of urine HTN (hypertension) Hypertension Tobacco abuse Bipolar 1 disorder Diabetes Obstructive sleep apnea Obesity (BMI 30-39.9) Hyperlipidemia Schizophrenia Family History Other Adopted Social History Smoking/Tobacco Use Status: Current every day Tobacco Type: cigarettes Smoking packs per day: 0 Smoking cigarettes per day: 0.0 Years smoked: 30 Smoking pack- years: 0.00 Tobacco: How many years used: 30 Smoking risk assessment performed?: Yes Alcohol Intake: former Drug use: Never Substance use type: does not use Caregiver/Support person: No Household members: none Housing: [facility] Number of Children: 0 Communication Needs: Hard of Hearing and Corrective Lenses Education Level: high school Do you need help understanding health information?: Always current occupation: disabled due to mental illness Pets and animals: No Current gender identity: male What is your relationship status?: never How often do you talk on the phone with friends or family?: never How often do you get together with friends or relatives?: never Panel score (0-1 are the most socially isolated patients): 0 What type of physical activity do you participate in: none and sedentary lifestyle Frequency: does not exercise Special mannie needs: No Seatbelt use: always Do you feel safe at home: No Do you feel safe in your relationship?: Yes Additional Social history: Pt states he is not taken care of at his [facility] Time Spent with Patient Time Spent with Patient: <45 minutes Time was spent: preparing to see the patient(eg.review tests), ordering medications,tests, procedures, referring, communicating with other health home care scheduler, indepentently interpreting results, counseling the patient and care coordination
--- NOTE | 2023-06-12 14:08 | PDOC.HHF2F_ITS ---
Home Health Referral Home Health Orders Clinical synopsis of why skilled professionals are needed: Generalized weakness, gait instability d/t recent exacerbation of COPD and acute on chronic heart failure w/ preserved ejection fraction. Patient has had hx of falls d/t his weakness, and gets dyspneic w/ any prolonged ambulation. He needs home P.T. services to improve his strength, improve his balance and gait and to improve his conservation of energy w/ his work of breathing. Medical diagnosis necessitation home health referral: exacerbation of COPD, HFPEF Physical Therapist: Check all that apply Increase strength & endurance for safe mobility at home: Ordered To design/establish home maintenance program: Ordered Fall reduction therapy program for patient with history of frequent falls: Ordered Home safety evaluation and teaching/gait training including stair management (if applicable): Ordered Better Breathing Program: Ordered Occupational Therapist: Evaluate and treat for patient unable to perform ADL/IADL/self-care: Ordered Home Bound Status Requires the aid of supportive device (check all that apply): Walker Describe why leaving home would require a considerable and taxing effort: Requires frequent rest periods, Oxygen and Safety Concerns: describe (frequent falls) Encounter Date and Reason: I certify that a FTF encounter for this patient was performed on June 12, 2023 and that such encounter was related to the primary reason the patient requires home health services. The encounter was conducted in the following manner: * By me as the certifying physician, LIQUID LOADER, PA or * By an inpatient physician, LIQUID LOADER or PA during an inpatient stay who communicated findings to me, Certification And Authentication I certify that I composed the above information based on my clinical judgment relating to this patient's medical condition and, if applicable, clinical findings communicated to me by the NPP or inpatient physician who performed the FTF encounter. Name of Provider that will be monitoring home health services: MIMI PEREZ
[2023-06-12 14:50] VITALS: BP 123/68; PULSE 54; TEMP 36.6; O2SAT 89
== END 2023-06-12 15:00 | disposition home health service (06) | DRG 190 ==
LOC: ER 11:02 → ICU 13:33
PROVIDERS: Internal Medicine; Admitting Provider Family Medicine; Emergency Provider Emergency Medicine; PCP Nurse Practitioner Family; Visit Provider Family Medicine
DX: J44.1 Chronic obstructive pulmonary disease with (acute) exacerbation (principal); I50.33 Acute on chronic diastolic (congestive) heart failure; J96.22 Acute and chronic respiratory failure with hypercapnia; J96.21 Acute and chronic respiratory failure with hypoxia; I27.81 Cor pulmonale (chronic); E11.9 Type 2 diabetes mellitus without complications; F17.210 Nicotine dependence, cigarettes, uncomplicated; R74.8 Abnormal levels of other serum enzymes; G89.29 Other chronic pain; M54.9 Dorsalgia, unspecified; F31.9 Bipolar disorder, unspecified; Z99.81 Dependence on supplemental oxygen; G47.33 Obstructive sleep apnea (adult) (pediatric); I45.10 Unspecified right bundle-branch block; E66.9 Obesity, unspecified; F20.9 Schizophrenia, unspecified; E78.5 Hyperlipidemia, unspecified; R32 Unspecified urinary incontinence; Z79.84 Long term (current) use of oral hypoglycemic drugs; I11.0 Hypertensive heart disease with heart failure; R29.6 Repeated falls; W19.XXXA Unspecified fall, initial encounter; Z68.33 Body mass index [BMI] 33.0-33.9, adult
CPT/HCPCS: 00123; 36410; 36415; 76604; 80048; 80053; 82805; 85027; 87637; 93005; 93308; 94618; 94640; 96374; 97035; 97110; 97162; 97164; 99291; J1650; 70450; 71045; 72110; 83735; 83880; 84484; 85025; 93010; 94660; 94664; 94760; 99222; 99231; 99232; 99238; J1815; J1940; J2930; J3490; J7512; J7613; J7620

== ENCOUNTER → 2023-06-17 13:53 | Outpatient (BNVA) | payer MEDICARE, MEDICAID, SELFPAY | PROVIDERS: PCP Nurse Practitioner Family; Visit Provider Nurse Practitioner Gerontology | DX: R32 Unspecified urinary incontinence (principal) | CPT/HCPCS: 51798; 99213 ==

== ENCOUNTER 2023-06-25 15:04 | Outpatient (REF) | payer MEDICARE, MEDICAID, SELFPAY ==
[2023-06-25 20:18] LABS: ALT 25 U/L (16-63); AST 21 U/L (15-37); Albumin 3.6 g/dL (3.4-5.0); Alkaline Phosphatase 67 U/L (46-116); Anion Gap 4.5 mmol/L (3-11); BUN 26 mg/dL (7-18); Bilirubin, Total 0.4 mg/dL (0.2-1.0); CO2 38.5 mmol/L (21.0-32.0); CREATININE 0.8 mg/dL (0.70-1.30); Calcium 9.5 mg/dL (8.5-10.1); Chloride 100 mmol/L (98-107); Estimated GFR 100.06 (mL/min/1.73m2); Glucose 109 mg/dL (74-106); Magnesium 1.8 mg/dL (1.8-2.4); Sodium 143 mmol/L (136-145)
== END 2023-06-25 15:05 | disposition home or self-care (01) ==
LOC: NCHCN 15:04
PROVIDERS: PCP Nurse Practitioner Family; Visit Provider Nurse Practitioner Family
DX: I50.9 Heart failure, unspecified (principal)
CPT/HCPCS: 80053; 83735

== ENCOUNTER → 2023-07-15 02:14 | Outpatient (CLI) | payer MEDICARE, MEDICAID, SELFPAY ==
--- NOTE | 2023-07-15 08:00 | DI.CTLCSR_ITS ---
Exam(s) CT CHEST LUNG CANCER SCREEN EXAM: CT CHEST LUNG CANCER SCREEN CLINICAL HISTORY: Screening for lung cancer,CURRENT SMOKER, F17.210 TECHNIQUE: Imaging Protocol: Axial computed tomography images with coronal and sagittal reformatted images were created and reviewed. Low dose screening protocol. COMPARISON: CT CT CHEST LUNG CANCER SCREEN from 02/27/[address] CHEST WO from 06/04/2022 FINDINGS: Tracheobronchial tree: No bronchiectasis or mucus plugging. Mediastinum and Elina: No dominant adenopathy or fluid collection. Pulmonary parenchyma: Mildly limited by respiratory motion. Basilar scarring versus atelectasis. No consolidation or dominant measurable mass. Mild emphysematous changes. Lung Nodules: Stable smoothly marginated ovoid nodule associated with the right minor fissure. Pleura: No effusion. No pneumothorax. Heart: The heart is mildly dilated. Moderate coronary artery calcifications are seen. Aorta: Thoracic aorta non-dilated. Upper abdomen: No acute findings. Stable bilateral adrenal enlargement. Bones: Unremarkable for age. Soft Tissues: Unremarkable. IMPRESSION: No suspicious pulmonary nodules. Lung RADS Cat 2 - Benign Appearance / Behavior: Nodules with a very low likelihood of becoming a clin ically active cancer due to size or lack of growth Lung-RADS 1.0 CATEGORIES: Category 0 - Prior chest CT exam(s) being located for comparison. Category 1 - Annual screening in 12 months. No nodules or definitely benign nodules. Category 2 - Annual screening in 12 months. Benign appearance. Nodules with low likelihood of becomin g active cancer. Category 3 - 6-month follow-up. Probably benign. Short-term follow-up suggested. Nodules with low lik elihood of becoming active cancer. Category 4A - 3-month follow-up and CT/PET if >8 mm in size. Suspicious finding. Findings which requi re additional testing. Category 4B - Findings which require additional testing and tissue sampling. Category 4X - Category 3 or 4 nodules with additional features or imaging findings that increases the suspicion of malignancy. Modifier S- Potentially clinically significant findings (non lung cancer) RADIATION DOSE DELIVERED: 90.66mGy.cm Total DLP DATA REPOSITORY: All CT scans at this facility are submitted to the National Radiology Data Registry (NRDR) Dose Index Registry (DIR) with the [employer] ([employer]). RADIATION OPTIMIZATION: All CT scans at this facility use at least one of these dose optimization te chniques: automated exposure control; mA and/or kV adjustment per patient size (includes targeted exa ms where dose is matched to clinical indication); or iterative reconstruction.
== END ==
PROVIDERS: PCP Nurse Practitioner Family; Visit Provider Student in an Organized Health Care Education/Training Program
DX: F17.210 Nicotine dependence, cigarettes, uncomplicated (principal); Z12.2 Encounter for screening for malignant neoplasm of respiratory organs
CPT/HCPCS: 71271

== ENCOUNTER → 2023-07-21 13:23 | Outpatient (BNVA) | payer MEDICARE, MEDICAID, SELFPAY | PROVIDERS: PCP Nurse Practitioner Family; Referring Provider Nurse Practitioner Family; Visit Provider Physician Assistant Surgical ==

== ENCOUNTER 2023-07-21 13:56 | Emergency (ER) | payer MEDICARE, MEDICAID, SELFPAY ==
--- NOTE | 2023-07-21 13:45 | RT.EKG_ITS ---
APPROVED REPORT Exam: Resting ECG Reason for Exam: respiratory failure Patient Location: E HR:143 bpm ECG Measurements Heart Rate 143 AXIS OK 133 P 106 QRSd 147 QRS 169 QT 374 T 265 QTc 577 Conclusion SVT or A flutter 143 no stemi doesn't appear to be sinus
[2023-07-21 13:54] VITALS: BP 102/71; PULSE 144; RESP 20; TEMP 36.3
[2023-07-21 14:06] VITALS: O2SAT 90
--- NOTE | 2023-07-21 14:12 | W.ED.GENAD ---
Discharge Plan Disposition Patient Disposition: Transfer-Acute Inpatient Care Condition: Critical Discharge Details Chief Complaint: RespSymp Clinical Impression: Acute on chronic heart failure with preserved ejection fraction (HFpEF), Iatrogenic hypotension, Atrial flutter, Acute on chronic respiratory failure with hypoxia and hypercapnia Primary Care Provider: MIMI PEREZ ED Provider: Vera Dsouza Home Meds and New Rx's Prescriptions: No Action metformin 750 mg tablet extended release 24 hr 750 mg PO DAILY ipratropium-albuterol 0.5 mg-3 mg(2.5 mg base)/3 mL solution for nebulization 3 ml inhalation Q4H PRN (Reason: wheezing) Qty: 540 12RF melatonin 3 mg capsule 3 mg PO HS PRN atorvastatin 20 mg tablet 20 mg PO HS azithromycin 250 mg tablet 250 mg PO DAILY Qty: 60 7RF Hold Instructions: hold until completed course of levofloxacin (DME) blood-glucose meter Misc See Rx Instructions .Route Rx Instructions: As directed (DME) Disposable Brief Jumbo X-Large Misc See Rx Instructions .Route Rx Instructions: As directed (DME) Blood Glucose Test Strip See Rx Instructions .Route Rx Instructions: As directed (DME) lancets [OneTouch UltraSoft Lancets] Misc See Rx Instructions .Route Rx Instructions: As directed (DME) oxygen and supplies 3 liters 0 .Route .MEDSUPPLY oxybutynin chloride 15 mg tablet extended release 24hr 30 mg PO QHS Qty: 180 3RF aripiprazole 30 mg tablet 30 mg PO DAILY torsemide 20 mg Tablet 20 mg PO DAILY Qty: 30 0RF spironolactone 25 mg Tablet 25 mg PO DAILY Qty: 30 0RF lisinopril 20 mg tablet 10 mg PO DAILY Qty: 0 0RF budesonide-formoterol [Symbicort] 160-4.5 mcg/actuation HFA aerosol inhaler See Rx Instructions .ROUTE .COMPLEX Rx Instructions: 2 puffs BID prazosin 1 mg capsule 3 mg PO HS amlodipine 5 mg tablet 5 mg PO DAILY cyanocobalamin (vitamin B-12) [Vitamin B-12] 5,000 mcg Tablet, Sublingual 5,000 mcg SUBLINGUAL DAILY divalproex 500 mg tablet extended release 24 hr 1,000 mg PO HS cholecalciferol (vitamin D3) [Vitamin D3] 25 mcg (1,000 unit) capsule 1,000 unit PO DAILY albuterol sulfate 90 mcg/actuation HFA aerosol inhaler 2 inh inhalation Q6H PRN HPI General Date/Time Provider Initiated Documentation: 07/21/23 14:02. Limitations to Documentation: physical limitation. Information obtained by: patient. HPI Narrative: 63-year-old gentleman with past medical history of heart failure, COPD, diabetes, oxygen dependent at 4 L presents for evaluation of shortness of breath. Per report, the patient presented for pulmonary rehab clinic with hypoxia. He also complained to them about chest pain. He was requiring 6 L of oxygen to maintain saturations. Related Data Home Medications Medication Instructions Recorded Confirmed metformin 750 mg tablet,extended 750 mg PO DAILY 03/13/21 07/21/23 release 24 hr blood sugar diagnostic (Blood 10/23/21 06/08/23 Glucose Test strips) blood-glucose meter 10/23/21 06/08/23 diaper,brief,adult,disposable 10/23/21 06/08/23 (Disposable Brief Jumbo X-Large) lancets (OneTouch UltraSoft 10/23/21 06/08/23 Lancets) oxygen and supplies 3 liters 10/23/21 06/08/23 budesonide-formoterol HFA 160 See Rx Instructions .Route .COMPLEX 04/12/22 07/21/23 mcg-4.5 mcg/actuation aerosol inhaler (Symbicort) ipratropium 0.5 mg-albuterol 3 mg 3 ml inhalation Q4H PRN wheezing 05/15/22 07/21/23 (2.5 mg base)/3 mL nebulization #540 mL soln atorvastatin 20 mg tablet 20 mg PO HS 08/13/22 07/21/23 amlodipine 5 mg tablet 5 mg PO DAILY 12/23/22 07/21/23 cyanocobalamin (vitamin B-12) 5,000 mcg sublingual DAILY 12/23/22 07/21/23 5,000 mcg sublingual tablet (Vitamin B-12) prazosin 1 mg capsule 3 mg PO HS 12/23/22 07/21/23 azithromycin 250 mg tablet 250 mg PO DAILY #60 tabs 01/20/23 07/21/23 oxybutynin chloride 15 mg 30 mg (2 x 15 mg) PO QHS #180 tabs 01/20/23 07/21/23 tablet,extended release 24 hr albuterol sulfate 90 mcg/actuation 2 inh inhalation Q6H PRN 02/19/23 07/21/23 aerosol inhaler cholecalciferol (vitamin D3) 25 1,000 unit PO DAILY 02/19/23 07/21/23 mcg (1,000 unit) capsule (Vitamin D3) divalproex 500 mg tablet,extended 1,000 mg PO HS 05/09/23 07/21/23 release 24 hr aripiprazole 30 mg tablet 30 mg PO DAILY 06/08/23 07/21/23 lisinopril 20 mg tablet 10 mg (1/2 x 20 mg) PO DAILY #0 06/12/23 07/21/23 tabs spironolactone 25 mg tablet 25 mg PO DAILY #30 tabs 06/12/23 07/21/23 torsemide 20 mg tablet 20 mg PO DAILY #30 tabs 06/12/23 07/21/23 melatonin 3 mg capsule 3 mg PO HS PRN 06/17/23 07/21/23 Previous Rx's Medication Instructions Recorded ipratropium 0.5 mg-albuterol 3 mg 3 ml inhalation Q4H PRN wheezing 05/15/22 (2.5 mg base)/3 mL nebulization #540 mL soln azithromycin 250 mg tablet 250 mg PO DAILY #60 tabs 01/20/23 oxybutynin chloride 15 mg 30 mg (2 x 15 mg) PO QHS #180 tabs 01/20/23 tablet,extended release 24 hr lisinopril 20 mg tablet 10 mg (1/2 x 20 mg) PO DAILY #0 06/12/23 tabs spironolactone 25 mg tablet 25 mg PO DAILY #30 tabs 06/12/23 torsemide 20 mg tablet 20 mg PO DAILY #30 tabs 06/12/23 Allergies Allergy/AdvReac Type Severity Reaction Status Date / Time Penicillins Allergy Severe Anaphylaxis Unverified 07/21/23 15:51 dextromethorphan Allergy Mild Skin Rash Unverified 07/21/23 15:51 [From Dimetapp Cold-Congestion] diphenhydramine Allergy Mild Skin Rash Unverified 07/21/23 15:51 [From Dimetapp Cold-Congestion] guaifenesin Allergy Mild Skin Rash Unverified 07/21/23 15:51 [From Dimetapp Cold-Congestion] phenylephrine Allergy Mild Skin Rash Unverified 07/21/23 15:51 [From Dimetapp Cold-Congestion] pseudoephedrine Allergy Mild Skin Rash Unverified 07/21/23 15:51 [From Dimetapp Cold-Congestion] bupropion [From Wellbutrin] AdvReac Intermediate Other (See Unverified 07/21/23 15:51 Comment) General Stated Complaint: RespSymp SANTA: 2 Exam Narrative Exam Narrative: Review of Systems: All systems reviewed & are unremarkable except as noted in HPI and below Well-developed, mild respiratory distress NCAT PERRL, normal conjunctiva Tachycardic Mild hypoxia that resolves when the patient is put on 4 L nasal cannula unlabored respiratory effort, no wheezing or crackles Nondistended abdomen Extremities w/o deformity, no cyanosis, no edema No rashes or lesions. no focal neurologic deficits Slow to answer questions. No active hallucinations Course Vital Signs Vital signs: Vital Signs Temperature 36.3 C L 07/21/23 13:54 Pulse 144 H 07/21/23 13:54 Respiratory Rate 20 07/21/23 13:54 Blood Pressure 102/71 07/21/23 13:54 Temperature 36.3 C L 07/21/23 13:54 Temperature Source Tympanic 07/21/23 13:54 Pulse 144 H 07/21/23 13:54 Respiratory Rate 20 07/21/23 13:54 Blood Pressure 102/71 07/21/23 13:54 Blood Pressure Position Sitting 07/21/23 13:54 Pulse Oximetry 90 L 07/21/23 14:06 Oxygen Delivery Method Nasal Cannula 07/21/23 14:06 Oxygen Flow Rate 4 07/21/23 14:06 Pain Level 4 07/21/23 13:54 Medical Decision Making Emergent evaluation of respiratory distress. Patient has presented multiple times to the emergency department most recently was admitted for an acute on chronic exacerbation of heart failure with respiratory failure. At this time he is not requiring supplemental oxygen beyond his baseline. He is noted to be very tachycardic. EKG reviewed, right bundle branch block persists, I do not think this is sinus and will attempt heart rate improvement with a beta-vianey to see if this rate changes. 1420 VBG with CO2o of 73 which appears to be fairly consistent with the patient's baseline, at this time we will hold off BiPAP until I see a chest x-ray. 1430 X-ray reviewed significantly rotated, cardiomegaly and pulmonary edema noted though not significantly changed from prior. Lasix ordered 1445 Patient has received 2 push doses of diltiazem. The monitor was still reading a significantly fast heart rate, but repeat EKG demonstrated atrial flutter with a heart rate of 66. I do feel that this is the correct rate and rhythm. The patient's blood pressure is fairly low. Will give a push dose phenylephrine. Will give small saline bolus. Will give dose of Lasix. BNP elevated from baseline. Troponin is negative. Will discuss with cardiology at [facility]. 1545 Discussed with cardiology at [facility]. They are recommending EMMANUEL cardioversion for atrial flutter. Recommending heparin drip. Recommending to use levo drip if needed for blood pressure support. They will accept the patient for admission, posting tomorrow 1610 Discussed with cardiology [employer]. Patient is now requiring Levophed drip to maintain his blood pressure, maps have been in the 50s. Given this instability, they are recommending CV CCU. Patient has been accepted. Patient updated on plan for transfer. And will be sent emergently to [facility]. Medical Records Medical records reviewed: Yes I reviewed the patient's medical records. Medical records narrative: Reviewed medical records. Noted recent pulmonary clinic visit note today. Goal sats are 88 to 92% Lab Data Lab results reviewed: Yes I reviewed the patient's lab results. Quality:SDOH Health Related Social Needs: Health related social needs material hardship, transpo insecurity, personal safety Critical Care Time Critical Care Time Critical Care Time: Yes Total Critical Care Time: 40 Attestation: CRITICAL CARE Upon my evaluation, this patient had a high probability of imminent or life-threatening deterioration due to atrial flutter, heart failure, acute on chronic respiratory failure which required my direct attention, intervention, and personal management. I have personally provided 40 minutes of critical care time exclusive of time spent on separately billable procedures. Time includes review of laboratory data, radiology results, discussion with consultants, and monitoring for potential decompensation. Interventions were performed as documented above [facility] All Active Problems (Updated 07/21/23 @ 16:37 by Vera Dsozua MD) Iatrogenic hypotension (Acute) Atrial flutter (Acute) Acute on chronic heart failure with preserved ejection fraction (HFpEF) (Acute) Diabetes (Chronic) Nicotine dependence, cigarettes, uncomplicated (Acute) Chronic respiratory failure with hypercapnia (Acute) Advanced care planning/counseling discussion (Acute) Palliative care patient (Acute) Elevated troponin I level (Acute) Chronic heart failure with preserved ejection fraction (HFpEF) (Acute) Cor pulmonale (chronic) (Acute) Acute respiratory failure with hypoxia and hypercarbia (Acute) Right upper quadrant abdominal pain (Acute) Chronic back pain (Acute) Gram-negative bacteremia (Acute) COPD exacerbation (Acute) Acute on chronic respiratory failure with hypoxia and hypercapnia (Acute) COPD (chronic obstructive pulmonary disease) (Chronic) Suicide ideation (Acute) Seborrheic dermatitis (Acute) Sleep apnea (Acute) Depression (Chronic) Supplemental oxygen dependent (Acute) Medical History Pneumonia Acute hypoxemic respiratory failure Respiratory insufficiency Hallucinations Headache COVID-19 Altered mental status Septic shock Right bundle branch block Elevated troponin Elevated LFTs MICHAEL (acute kidney injury) Hyperkalemia Lactic acidosis COVID Respiratory failure with hypoxia and hypercapnia Hypoxemia Tobacco dependence Obesity Incontinence of urine HTN (hypertension) Hypertension Tobacco abuse Bipolar 1 disorder Diabetes Obstructive sleep apnea Obesity (BMI 30-39.9) Hyperlipidemia Schizophrenia Family History Other Adopted Social History Smoking/Tobacco Use Status: Current every day Tobacco Type: cigarettes Smoking packs per day: 0 Smoking cigarettes per day: 0.0 Years smoked: 30 Smoking pack-years: 0.00 Tobacco: How many years used: 30 Smoking risk assessment performed?: Yes Alcohol Intake: former Drug use: Never Substance use type: does not use Caregiver/Support person: No Household members: none Housing: correction Number of Children: 0 Communication Needs: Hard of Hearing and Corrective Lenses Education Level: high school Do you need help understanding health information?: Always current occupation: disabled due to mental illness Pets and animals: No Current gender identity: male What is your relationship status?: never How often do you talk on the phone with friends or family?: never How often do you get together with friends or relatives?: never Panel score (0-1 are the most socially isolated patients): 0 What type of physical activity do you participate in: none and sedentary lifestyle Frequency: does not exercise Special mannie needs: No Seatbelt use: always Do you feel safe at home: No Do you feel safe in your relationship?: Yes Additional Social history: Pt states he is not taken care of at his [facility]
[2023-07-21 14:15] LABS: BE (Venous) 16 mmol/L (-2-3); HCO3 (Venous) 41 mmol/L (23-28); O2 Sat (Venous) 87 %; TCO2 (Venous) 36 mmol/L (24-29); pH (Venous) 7.36 (7.31-7.41); pO2 (Venous) 56 mmHg
--- NOTE | 2023-07-21 14:15 | RT.EKG_ITS ---
APPROVED REPORT Exam: Resting ECG Reason for Exam: sob Patient Location: E HR:66 bpm ECG Measurements Heart Rate 66 AXIS MN [id number] P [id number] QRSd 148 QRS 62 QT 495 T 92 QTc 518 Conclusion Atrial flutter 66 RBBB
[2023-07-21 14:16] LABS: Abs Immature Grans 0.01 10^3/uL (0.0-0.06); Absolute Basophil Count 0.01 10^3/uL (0.0-0.2); Absolute Eosinophil Count 0.13 10^3/uL (0.0-0.7); Absolute Monocyte Count 0.74 10^3/uL (0.1-0.8); Absolute Neutrophil Count 4.41 10^3/uL (1.2-6.7); Basophils % 0.1 %; Eosinophils % 1.9 %; HCT 52.1 % (40.0-50.0); HGB 16.2 g/dL (13.5-17.5); Immature Grans % 0.1 %; Lymphocytes % 23.2 %; MCH 29.8 pg (27.0-33.0); MCHC 31.1 % (32.0-36.0); MCV 96 fL (80-95); MPV 9.2 fL (8.0-11.0); Monocytes % 10.7 %; Platelet Count 201 10^3/uL (130-400); RBC 5.44 10^6/uL (4.36-5.78); RDW 15.2 % (11.8-14.1); RDW-SD 52.4 fL; pCO2 (Venous) 73 mmHg (41-51)
[2023-07-21 14:19] VITALS: BP 97/80; PULSE 142
[2023-07-21] MEDS: Metoprolol 5 MG/5 ML VIAL IVP (14:19)
[2023-07-21] MEDS: dilTIAZem 25 MG/5 ML VIAL 20 MG IVP ×2 (14:30→14:36)
[2023-07-21 14:36] VITALS: BP 84/62; PULSE 153
[2023-07-21 14:40] LABS: ALT 17 U/L (16-63); AST 12 U/L (15-37); Albumin 3.4 g/dL (3.4-5.0); Alkaline Phosphatase 67 U/L (46-116); Anion Gap 4.2 mmol/L (3-11); BUN 28 mg/dL (7-18); Bilirubin, Total 0.3 mg/dL (0.2-1.0); CO2 39.8 mmol/L (21.0-32.0); Calcium 8.9 mg/dL (8.5-10.1); Chloride 104 mmol/L (98-107); Glucose 97 mg/dL (74-106); NT-proBNP 1053 pg/mL (<300); Potassium 4.9 mmol/L (3.5-5.1); Sodium 148 mmol/L (136-145); Total Protein 6.5 g/dL (6.4-8.2); Troponin I < 50 ng/L (< or =60)
--- NOTE | 2023-07-21 14:40 | DI.RAD_ITS ---
Exam(s) XR PORTABLE CHEST AP EXAM: XR PORTABLE CHEST AP CLINICAL HISTORY: sob TECHNIQUE: 2D digital imaging was performed. COMPARISON: CR,XR XR PORTABLE CHEST AP from 06/08/[address] CHEST LUNG CANCER SCREEN from 07/15/2023 FINDINGS: Exam is extremely limited by position, motion and under penetration. There are overlying monitoring leads. LUNGS: Right lung appears grossly clear. The left upper lobe appears clear. The majority of the lef t lung is obscured by cardiac silhouette and mediastinum. No gross pleural abnormality seen. HEART: Norm enlarged. AORTA: Normal diameter. BONES: Unremarkable for age. Soft tissues: Unremarkable. IMPRESSION: Extremely limited exam. Basilar infiltrates are not excluded. DATA REPOSITORY: RADIATION DOSE DELIVERED:
--- NOTE | 2023-07-21 14:45 | RT.EKG_ITS ---
APPROVED REPORT Exam: Resting ECG Reason for Exam: tachy Patient Location: E HR:69 bpm ECG Measurements Heart Rate 69 AXIS DC [id number] P [id number] QRSd 149 QRS 75 QT 384 T 157 QTc 412 Conclusion Atrial flutter 69 RBBB
--- NOTE | 2023-07-21 15:00 | RT.EKG_ITS ---
APPROVED REPORT Exam: Resting ECG Reason for Exam: tachy Patient Location: E HR:69 bpm ECG Measurements Heart Rate 69 AXIS IN [id number] P [id number] QRSd 156 QRS 12 QT 560 T 265 QTc 600 Conclusion Atrial flutter 69 QTC long 560
[2023-07-21] MEDS: Phenylephrine 800 MCG/10 ML SYR 100 MCG IVP ×2 (15:18→15:43)
--- NOTE | 2023-07-21 15:28 | NUR.NOTE ---
Pt noted to have soft BP in low 100's over 50's. pROVIDER ORDERED 5 MG ivp METOPROLOL tHIS nurse verbally verified bp with provider and dosage with provider and received a verbal ok to administer Nursing Note:
[2023-07-21] MEDS: MAGNESIUM SULFATE 2 GM/50 ML BAG IVINF (15:37)
[2023-07-21] MEDS: Normal Saline 250 ML IV (15:40)
[2023-07-21 15:44] VITALS: BP 84/62; PULSE 153; RESP 20; TEMP 36.3; O2SAT 90
[2023-07-21 16:08] LABS: Bilirubin Negative (Negative); Blood Negative (Negative); Clarity Clear (Clear); Glucose Negative (Negative); Ketones Negative (Negative); Leukocyte Esterase Negative (Negative); Nitrite Negative (Negative); Urobilinogen 0.2 mg/dL (Up to 0.2); pH 5.5 (5-8)
[2023-07-21] MEDS: Heparin in 0.45% NaCl 25,000 UNIT/250 ML BAG 10 UNIT IV (16:08)
--- NOTE | 2023-07-21 16:13 | HPE_ITS ---
Date of service: 07/21/23 Time of Service: 16:14 Assessment and Plan Assessment and plan (1) Atrial flutter: Status: Acute Assessment and plan: - Patient initially presented with significant shortness of breath though is not requiring additional (2) Iatrogenic hypotension: Status: Acute Assessment and plan: - Titrate Levophed for mean arterial pressure greater than 65 as noted above (3) Chronic heart failure with preserved ejection fraction (HFpEF): Status: Acute (4) Chronic respiratory failure with hypercapnia: Status: Acute (5) COPD (chronic obstructive pulmonary disease): Status: Chronic Qualifiers: COPD type: COPD with acute exacerbation Qualified Code(s): J44.1 - Chronic obstructive pulmonary disease with (acute) exacerbation (6) Diabetes: Status: Chronic Qualifiers: Diabetes mellitus type: type 2 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 Patient was apparently pulmonary rehab clinic where she was noted as being hypoxic though he was on what his oxygen requirement was at that time. He had also complained of some chest pain but denied any lightheadedness, dizziness, nausea or vomiting diarrhea or radiation of chest pain. The emergency department the patient was noted as being in mild respiratory distress though upon arrival to the emergency department he was only requiring his baseline 4 L nasal cannula. However, he was noted as being significantly tachycardic and this was determined to be secondary to new onset atrial flutter. While in the emergency department he was given 5 mg IV Lopressor 2 pushes of 20 mg of IV diltiazem. While this did significantly improve the patient's rate down to the mid 60s, did significantly decrease his blood pressure with systolics as low as 75. While in the emergency department he was also given one-time push dose phenylephrine and normal saline bolus as well is IV Lasix. Troponin was also noted to be negative. Emergency room physician discussed the case with [facility] cardiology, who stated the patient would benefit from having EMMANUEL, however you have surgery and patient has been accepted for transfer to [facility] tomorrow, 07/22/2023. However, until about time they recommended no additional rate control medications and to give Levophed if needed to maintain mean arterial pressure greater than 65. At which time emergency room physician paged hospitalist for admission for patient with new onset atrial flutter who was achieved rate control but is ended up with iatrogenic hypotension while on Levophed until being transferred to [facility] for EMMANUEL cardioversion. Review of Systems All systems reviewed & are unremarkable except as noted in HPI and below PFSH All Active Problems (Updated 07/21/23 @ 16:20 by Rory Huerta MD) Iatrogenic hypotension (Acute) Atrial flutter (Acute) Acute on chronic heart failure with preserved ejection fraction (HFpEF) (Acute) Diabetes (Chronic) Nicotine dependence, cigarettes, uncomplicated (Acute) Chronic respiratory failure with hypercapnia (Acute) Advanced care planning/counseling discussion (Acute) Palliative care patient (Acute) Elevated troponin I level (Acute) Chronic heart failure with preserved ejection fraction (HFpEF) (Acute) Cor pulmonale (chronic) (Acute) Acute respiratory failure with hypoxia and hypercarbia (Acute) Right upper quadrant abdominal pain (Acute) Chronic back pain (Acute) Gram-negative bacteremia (Acute) COPD exacerbation (Acute) Acute on chronic respiratory failure with hypoxia and hypercapnia (Acute) COPD (chronic obstructive pulmonary disease) (Chronic) Suicide ideation (Acute) Seborrheic dermatitis (Acute) Sleep apnea (Acute) Depression (Chronic) Supplemental oxygen dependent (Acute) Medical History Pneumonia Acute hypoxemic respiratory failure Respiratory insufficiency Hallucinations Headache COVID-19 Altered mental status Septic shock Right bundle branch block Elevated troponin Elevated LFTs MICHAEL (acute kidney injury) Hyperkalemia Lactic acidosis COVID Respiratory failure with hypoxia and hypercapnia Hypoxemia Tobacco dependence Obesity Incontinence of urine HTN (hypertension) Hypertension Tobacco abuse Bipolar 1 disorder Diabetes Obstructive sleep apnea Obesity (BMI 30-39.9) Hyperlipidemia Schizophrenia Family History Other Adopted Social History Smoking/Tobacco Use Status: Current every day Tobacco Type: cigarettes Smoking packs per day: 0 Smoking cigarettes per day: 0.0 Years smoked: 30 Smoking pack- years: 0.00 Tobacco: How many years used: 30 Smoking risk assessment performed?: Yes Alcohol Intake: former Drug use: Never Substance use type: does not use Caregiver/Support person: No Household members: none Housing: skilled nursing Number of Children: 0 Communication Needs: Hard of Hearing and Corrective Lenses Education Level: high school Do you need help understanding health information?: Always current occupation: disabled due to mental illness Pets and animals: No Current gender identity: male What is your relationship status?: never How often do you talk on the phone with friends or family?: never How often do you get together with friends or relatives?: never Panel score (0-1 are the most socially isolated patients): 0 What type of physical activity do you participate in: none and sedentary lifestyle Frequency: does not exercise Special mannie needs: No Seatbelt use: always Do you feel safe at home: No Do you feel safe in your relationship?: Yes Additional Social history: Pt states he is not taken care of at his [facility] Meds Allergies and Home Medications Allergies Allergy/AdvReac Type Severity Reaction Status Date / Time Penicillins Allergy Severe Anaphylaxis Unverified 07/21/23 15:51 dextromethorphan Allergy Mild Skin Rash Unverified 07/21/23 15:51 [From Dimetapp Cold-Congestion] diphenhydramine Allergy Mild Skin Rash Unverified 07/21/23 15:51 [From Dimetapp Cold-Congestion] guaifenesin Allergy Mild Skin Rash Unverified 07/21/23 15:51 [From Dimetapp Cold-Congestion] phenylephrine Allergy Mild Skin Rash Unverified 07/21/23 15:51 [From Dimetapp Cold-Congestion] pseudoephedrine Allergy Mild Skin Rash Unverified 07/21/23 15:51 [From Dimetapp Cold-Congestion] bupropion [From Wellbutrin] AdvReac Intermediate Other (See Unverified 07/21/23 15:51 Comment) Home Medications Medication Instructions Recorded Confirmed Type metformin 750 mg tablet,extended 750 mg PO DAILY 03/13/21 07/21/23 History release 24 hr blood sugar diagnostic (Blood 10/23/21 06/08/23 History Glucose Test strips) blood-glucose meter 10/23/21 06/08/23 History diaper,brief,adult,disposable 10/23/21 06/08/23 History (Disposable Brief Jumbo X-Large) lancets (OneTouch UltraSoft 10/23/21 06/08/23 History Lancets) oxygen and supplies 3 liters 10/23/21 06/08/23 History budesonide-formoterol HFA 160 See Rx Instructions .Route .COMPLEX 04/12/22 07/21/23 History mcg-4.5 mcg/actuation aerosol inhaler (Symbicort) ipratropium 0.5 mg-albuterol 3 mg 3 ml inhalation Q4H PRN wheezing 05/15/22 07/21/23 Rx (2.5 mg base)/3 mL nebulization #540 mL soln atorvastatin 20 mg tablet 20 mg PO HS 08/13/22 07/21/23 History amlodipine 5 mg tablet 5 mg PO DAILY 12/23/22 07/21/23 History cyanocobalamin (vitamin B-12) 5,000 mcg sublingual DAILY 12/23/22 07/21/23 History 5,000 mcg sublingual tablet (Vitamin B-12) prazosin 1 mg capsule 3 mg PO HS 12/23/22 07/21/23 History azithromycin 250 mg tablet 250 mg PO DAILY #60 tabs 01/20/23 07/21/23 Rx oxybutynin chloride 15 mg 30 mg (2 x 15 mg) PO QHS #180 tabs 01/20/23 07/21/23 Rx tablet,extended release 24 hr albuterol sulfate 90 mcg/actuation 2 inh inhalation Q6H PRN 02/19/23 07/21/23 History aerosol inhaler cholecalciferol (vitamin D3) 25 1,000 unit PO DAILY 02/19/23 07/21/23 History mcg (1,000 unit) capsule (Vitamin D3) divalproex 500 mg tablet,extended 1,000 mg PO HS 05/09/23 07/21/23 History release 24 hr aripiprazole 30 mg tablet 30 mg PO DAILY 06/08/23 07/21/23 History lisinopril 20 mg tablet 10 mg (1/2 x 20 mg) PO DAILY #0 06/12/23 07/21/23 Rx tabs spironolactone 25 mg tablet 25 mg PO DAILY #30 tabs 06/12/23 07/21/23 Rx torsemide 20 mg tablet 20 mg PO DAILY #30 tabs 06/12/23 07/21/23 Rx melatonin 3 mg capsule 3 mg PO HS PRN 06/17/23 07/21/23 History Exam Narrative Exam Narrative: Chronically ill-appearing gentleman laying in bed no acute distress, 4 L nasal cannula in place, heart irregularly irregular, rate in 60s, lungs clear to auscultation bilaterally, abdomen soft, nontender, nondistended Results Labs 07/21/23 14:06 07/21/23 14:06 Labs: Laboratory Results - last 24 hr 07/21/23 07/21/23 07/21/23 14:06 14:06 15:45 WBC 6.90 RBC 5.44 Hgb 16.2 Hct 52.1 H MCV 96 H MCH 29.8 MCHC 31.1 L RDW 15.2 H Plt Count 201 MPV 9.2 Immature Gran % 0.1 Neutrophils % 64.0 Lymphocytes % 23.2 Monocytes % 10.7 Eosinophils % 1.9 Basophils % 0.1 Nucleated RBC % 0.0 Absolute Neutrophils 4.41 Absolute Lymphocytes 1.60 Absolute Monocytes 0.74 Absolute Eosinophils 0.13 Absolute Basophils 0.01 VBG pH 7.36 VBG pCO2 73 H* VBG pO2 56 VBG HCO3 41 H VBG Total CO2 36 H VBG O2 Saturation 87 VBG Base Excess 16 H Sodium 148 H Potassium 4.9 Chloride 104 Carbon Dioxide 39.8 H Anion Gap 4.2 BUN 28 H Creatinine 1.0 Est GFR (CKD-EPI 2020) 85.10 Glucose 97 Calcium 8.9 Total Bilirubin 0.3 AST 12 L ALT 17 Alkaline Phosphatase 67 Troponin I < 50 NT-Pro-B Natriuret Pep 1053 H Cancelled Total Protein 6.5 Albumin 3.4 Urine Color Yellow Urine Clarity Clear Urine pH 5.5 Ur Specific [place] 1.020 Urine Protein Negative Urine Ketones Negative Urine Blood Negative Urine Nitrite Negative Urine Bilirubin Negative Urine Urobilinogen 0.2 Ur Leukocyte Esterase Negative Urine Glucose Negative Last Vital Signs Temp 97.3 F L 07/21/23 15:44 Pulse 153 H 07/21/23 15:44 Resp 20 07/21/23 15:44 BP 84/62 L 07/21/23 15:44 Pulse Ox 90 L 07/21/23 15:44
[2023-07-21] MEDS: Furosemide 100 MG/10 ML VIAL 80 MG IVP (16:24)
[2023-07-21] MEDS: Norepinephrine in D5W 8 MG/250 ML BAG 9.375 MG IV (16:24)
[2023-07-21 18:04] VITALS: BP 98/53; PULSE 60; RESP 19; TEMP 36.3; O2SAT 90
== END 2023-07-21 17:16 | disposition short-term general hospital (02) ==
PROVIDERS: Emergency Provider Emergency Medicine; PCP Nurse Practitioner Family
DX: I11.0 Hypertensive heart disease with heart failure (principal); I50.33 Acute on chronic diastolic (congestive) heart failure; I48.92 Unspecified atrial flutter; J96.22 Acute and chronic respiratory failure with hypercapnia; J96.21 Acute and chronic respiratory failure with hypoxia; I45.19 Other right bundle-branch block; E78.5 Hyperlipidemia, unspecified; E11.9 Type 2 diabetes mellitus without complications; J44.9 Chronic obstructive pulmonary disease, unspecified; Z79.84 Long term (current) use of oral hypoglycemic drugs; F17.210 Nicotine dependence, cigarettes, uncomplicated; Z99.81 Dependence on supplemental oxygen
CPT/HCPCS: 80053; 82805; 93005; 96361; 96374; 96375; 99214; 99285; 71045; 81003; 83880; 84484; 85025; 93010; J1644; J1940; J2371; J3475

== ENCOUNTER 2023-09-17 10:55 | Emergency (ER) | payer MEDICARE, MEDICAID, SELFPAY ==
[2023-09-17] VITALS (100 sets, daily range): BP systolic 53–129; BP diastolic 34–110; PULSE 45–193; RESP 11–27; TEMP 36.6; O2SAT 72–99
--- NOTE | 2023-09-17 10:45 | RT.EKG_ITS ---
APPROVED REPORT Exam: Resting ECG Reason for Exam: Chest Pain Patient Location: E HR:137 bpm ECG Measurements Heart Rate 137 AXIS NV 135 P 113 QRSd 151 QRS 139 QT 367 T -67 QTc 553 Conclusion Sinus tachycardia...rate> 99 RBBB and LPFB...QRSd >120mS, axis(90,210) ST depr, consider ischemia, anterolateral lds...ST <-0.10mV, I aVL V2-V6 Physician: RBBB with a flutter and 2:1 conduction
--- NOTE | 2023-09-17 11:08 | W.ED.GENAD ---
Discharge Plan Disposition Patient Disposition: Transfer-Acute Inpatient Care Specific Acute Inpt Facility: [facility] Condition: Serious Discharge Details Clinical Impression: Cardiogenic shock, Atrial flutter Primary Care Provider: MIMI PEREZ ED Provider: Edward Macias Home Meds and New Rx's Prescriptions: No Action metformin 750 mg tablet extended release 24 hr 750 mg PO DAILY ipratropium-albuterol 0.5 mg-3 mg(2.5 mg base)/3 mL solution for nebulization 3 ml inhalation Q4H PRN (Reason: wheezing) Qty: 540 12RF melatonin 3 mg capsule 3 mg PO HS PRN atorvastatin 20 mg tablet 20 mg PO HS azithromycin 250 mg tablet 250 mg PO DAILY Qty: 60 7RF Hold Instructions: hold until completed course of levofloxacin (DME) blood-glucose meter Misc See Rx Instructions .Route Rx Instructions: As directed (DME) Disposable Brief Jumbo X-Large Misc See Rx Instructions .Route Rx Instructions: As directed (DME) Blood Glucose Test Strip See Rx Instructions .Route Rx Instructions: As directed (DME) lancets [OneTouch UltraSoft Lancets] Misc See Rx Instructions .Route Rx Instructions: As directed (DME) oxygen and supplies 3 liters 0 .Route .MEDSUPPLY oxybutynin chloride 15 mg tablet extended release 24hr 30 mg PO QHS Qty: 180 3RF aripiprazole 30 mg tablet 30 mg PO DAILY torsemide 20 mg Tablet 20 mg PO DAILY Qty: 30 0RF lisinopril 20 mg tablet 10 mg PO DAILY Qty: 0 0RF Incruse Ellipta 62.5 mcg/actuation blister with device 1 inh INHALATION DAILY Jardiance 10 mg tablet 10 mg PO DAILY metoprolol succinate 25 mg tablet extended release 24 hr 25 mg PO DAILY Eliquis 5 mg tablet 5 mg PO BID spironolactone 25 mg Tablet 12.5 mg PO DAILY budesonide-formoterol [Symbicort] 160-4.5 mcg/actuation HFA aerosol inhaler See Rx Instructions .ROUTE .COMPLEX Rx Instructions: 2 puffs BID prazosin 1 mg capsule 3 mg PO HS amlodipine 5 mg tablet 5 mg PO DAILY cyanocobalamin (vitamin B-12) [Vitamin B-12] 5,000 mcg Tablet, Sublingual 5,000 mcg SUBLINGUAL DAILY divalproex 500 mg tablet extended release 24 hr 1,000 mg PO HS cholecalciferol (vitamin D3) [Vitamin D3] 25 mcg (1,000 unit) capsule 1,000 unit PO DAILY albuterol sulfate 90 mcg/actuation HFA aerosol inhaler 2 inh inhalation Q6H PRN HPI General Date/Time Provider Initiated Documentation: 09/17/23 11:02. HPI Narrative: This is a 63-year-old male with a past medical history of atrial flutter requiring cardioversion just over a month ago. COPD chronically on 4 L, mild congestive heart failure with an EF of around 45%, hypertension, high cholesterol, diabetes, currently on Eliquis for his a flutter, known right bundle branch block, depression, untreated obstructive sleep apnea who presents today for evaluation of chest pain shortness of breath. Patient states that for the last 3 to 4 days he has had mild pressure in his anterior chest with mild shortness of breath. Patient resides at [facility] and had been doing well, however today when he was at clinic his symptoms felt notably worse, he describes it as a cement block sitting on his chest. He admits to feeling short of breath with all activities. He denies fever or chills. He states he is taking his medications as directed. He denies missing any meds. At the clinic he was short of breath diaphoretic and not looking well. EMS was called and the patient was brought here. Initially blood pressure was reported to be in the 120 systolic, oxygen was diminished to the high 80s, he was increased from 4 L to 6 L and brought to the ER for further assessment. About 150 cc of normal saline were given prior to arrival. Patient has no other complaints. No other modifying factors. Related Data Home Medications Medication Instructions Recorded Confirmed metformin 750 mg tablet,extended 750 mg PO DAILY 03/13/21 09/17/23 release 24 hr blood sugar diagnostic (Blood 10/23/21 09/17/23 Glucose Test strips) blood-glucose meter 10/23/21 09/17/23 diaper,brief,adult,disposable 10/23/21 09/17/23 (Disposable Brief Jumbo X-Large) lancets (OneTouch UltraSoft 10/23/21 09/17/23 Lancets) oxygen and supplies 3 liters 10/23/21 09/17/23 budesonide-formoterol HFA 160 See Rx Instructions .Route .COMPLEX 04/12/22 09/17/23 mcg-4.5 mcg/actuation aerosol inhaler (Symbicort) ipratropium 0.5 mg-albuterol 3 mg 3 ml inhalation Q4H PRN wheezing 05/15/22 09/17/23 (2.5 mg base)/3 mL nebulization #540 mL soln atorvastatin 20 mg tablet 20 mg PO HS 08/13/22 09/17/23 amlodipine 5 mg tablet 5 mg PO DAILY 12/23/22 09/17/23 cyanocobalamin (vitamin B-12) 5,000 mcg sublingual DAILY 12/23/22 09/17/23 5,000 mcg sublingual tablet (Vitamin B-12) prazosin 1 mg capsule 3 mg PO HS 12/23/22 09/17/23 azithromycin 250 mg tablet 250 mg PO DAILY #60 tabs 01/20/23 09/17/23 oxybutynin chloride 15 mg 30 mg (2 x 15 mg) PO QHS #180 tabs 01/20/23 09/17/23 tablet,extended release 24 hr albuterol sulfate 90 mcg/actuation 2 inh inhalation Q6H PRN 02/19/23 09/17/23 aerosol inhaler cholecalciferol (vitamin D3) 25 1,000 unit PO DAILY 02/19/23 09/17/23 mcg (1,000 unit) capsule (Vitamin D3) divalproex 500 mg tablet,extended 1,000 mg PO HS 05/09/23 09/17/23 release 24 hr aripiprazole 30 mg tablet 30 mg PO DAILY 06/08/23 09/17/23 lisinopril 20 mg tablet 10 mg (1/2 x 20 mg) PO DAILY #0 06/12/23 09/17/23 tabs torsemide 20 mg tablet 20 mg PO DAILY #30 tabs 06/12/23 09/17/23 melatonin 3 mg capsule 3 mg PO HS PRN 06/17/23 09/17/23 apixaban 5 mg tablet (Eliquis) 5 mg PO BID 09/17/23 09/17/23 empagliflozin 10 mg tablet 10 mg PO DAILY 09/17/23 09/17/23 (Jardiance) metoprolol succinate 25 mg 25 mg PO DAILY 09/17/23 09/17/23 tablet,extended release 24 hr spironolactone 25 mg tablet 12.5 mg PO DAILY 09/17/23 09/17/23 umeclidinium 62.5 mcg/actuation 1 inh inhalation DAILY 09/17/23 09/17/23 blister powder for inhalation (Incruse Ellipta) Previous Rx's Medication Instructions Recorded ipratropium 0.5 mg-albuterol 3 mg 3 ml inhalation Q4H PRN wheezing 05/15/22 (2.5 mg base)/3 mL nebulization #540 mL soln azithromycin 250 mg tablet 250 mg PO DAILY #60 tabs 01/20/23 oxybutynin chloride 15 mg 30 mg (2 x 15 mg) PO QHS #180 tabs 01/20/23 tablet,extended release 24 hr lisinopril 20 mg tablet 10 mg (1/2 x 20 mg) PO DAILY #0 06/12/23 tabs torsemide 20 mg tablet 20 mg PO DAILY #30 tabs 06/12/23 Allergies Allergy/AdvReac Type Severity Reaction Status Date / Time Penicillins Allergy Severe Anaphylaxis Unverified 09/17/23 11:24 dextromethorphan Allergy Mild Skin Rash Unverified 09/17/23 11:24 [From Dimetapp Cold-Congestion] diphenhydramine Allergy Mild Skin Rash Unverified 09/17/23 11:24 [From Dimetapp Cold-Congestion] guaifenesin Allergy Mild Skin Rash Unverified 09/17/23 11:24 [From Dimetapp Cold-Congestion] phenylephrine Allergy Mild Skin Rash Unverified 09/17/23 11:24 [From Dimetapp Cold-Congestion] pseudoephedrine Allergy Mild Skin Rash Unverified 09/17/23 11:24 [From Dimetapp Cold-Congestion] bupropion [From Wellbutrin] AdvReac Intermediate Other (See Unverified 09/17/23 11:24 Comment) General SANTA: 2 Review of Systems All systems reviewed & are unremarkable except as noted in HPI and below Exam Narrative Exam Narrative: 1.Const: Well-nourished, Well-developed, appearing stated age 2.Eyes: PERRL, no conjunctival injection, and symmetrical lids. 3.ENT: Atraumatic external nose and ears. Moist MM. Neck: Symmetric, trachea midline, No thyromegaly. 4.CVS: +S1/S2, No murmurs or gallops. Peripheral pulses 2+ and equal in all extremities. Brisk capillary refill in all extremities. 5.RESP: Unlabored respiratory effort. Diminished breath sounds, minimal crackles at bases. No rhonchi or wheezes. 6.GI: Soft, Nontender/Nondistended, No hepatosplenomegaly. No guarding or rebound. 7.MSK: Normocephalic/Atraumatic, Extremities w/o deformity or ttp No cyanosis or clubbing, Normal movement of all extremities, no pitting edema 8.Skin: Warm, Dry. No rashes or lesions. 9.Neuro: diagnostics sales developer II-XII grossly intact. Sensation grossly intact, no focal neurologic deficits. 10.Psych: (AAO) x3. Appropriate mood and affect Procedures Central Line Placement Right IJ: Time Out Performed: Yes Patient Placed on Monitor/Pulse Ox: Yes MD Prep: mask and gown Central Line Prep: Chlorhexidine scrub Local Anesthetic: Lidocaine 2% Amount of anesthesia used (mL): 3 Ultrasound Used for Placement: Yes Central Line Lumen Inserted: triple Post Procedure: good blood return, all ports aspirated, flushed, capped and sutured in place with 3-0 nylon Post Procedure X-Ray: tip of catheter in good position Patient Tolerated Procedure: well and no complications Complications: none Procedural Sedation Indication: other ASA Class: III Time of Last PO Intake: 06:00 Preparation: skin fitter applied, pulse oximeter, capnometry used, supplemental O2 applied, suction/airway equipment at bedside and IV secured IV Propofol dose (mg): 60 Patient Tolerated Procedure: well Complications: hypoxia Interventions: oxygen applied, airway repositioned and assist by BVM Additional Comments: Patient was given a single dose of 60 mg of propofol. He became notably sedated with this, supplemental oxygen with [id number] and nasal trumpet were used. Patient very briefly for just a few seconds transition to the high 70s for pulse oximetry, but quickly rebounded once intervention was applied. Other Description: Time out was taken to identify the correct patient, procedure, and site. Risks and benefits were discussed with the patient and consent was obtained. The cardioversion pads are placed in the front to back orientation overlying the heart. After appropriate analgesia and anesthesia are obtained, the defibrillator is synchronized to the patient's heart rhythm. 120 J of energy are delivered and the patient's rhythm converted to normal sinus. The patient tolerated the procedure. There were no complications. A post cardioversion EKG is obtained which shows normal sinus rhythm Medical Decision Making This is a 63-year-old male with a past medical history of atrial flutter requiring cardioversion just over a month ago. COPD chronically on 4 L, mild congestive heart failure with an EF of around 45%, hypertension, high cholesterol, diabetes, currently on Eliquis for his a flutter, known right bundle branch block, depression, untreated obstructive sleep apnea who presents today for evaluation of chest pain shortness of breath. Patient states that for the last 3 to 4 days he has had mild pressure in his anterior chest with mild shortness of breath. Patient resides at [facility] and had been doing well, however today when he was at clinic his symptoms felt notably worse, he describes it as a cement block sitting on his chest. He admits to feeling short of breath with all activities. He denies fever or chills. He states he is taking his medications as directed. He denies missing any meds. At the clinic he was short of breath diaphoretic and not looking well. EMS was called and the patient was brought here. Initially blood pressure was reported to be in the 120 systolic, oxygen was diminished to the high 80s, he was increased from 4 L to 6 L and brought to the ER for further assessment. About 150 cc of normal saline were given prior to arrival. Patient has no other complaints. No other modifying factors. Exam demonstrates no pitting edema, minimal crackles in the bases of his lungs on auscultation, he is tachycardic in the 130s to 40s, blood pressures in the 50s to 70s systolic. Concern for unstable cardiac dysrhythmia. Review the EKG shows evidence of right bundle branch block, machine is reading is sinus rhythm however I am concerned that this is an underlying A-fib with a one-to-one conduction. We will review prior records, plan for potential cardioversion, reach out to [facility] monitor closely and reassess. Patient has received about 150 cc of normal saline already. We will prep for cardioversion. 11:50 AM Review of [facility] records seem to indicate that they thought he had a flutter in the past with right bundle branch block, he did get notably hypotensive and in shock on his previous admission here where he received Cardizem and metoprolol without any rate change. Eventually he was successfully cardioverted at [facility], which did help to mitigate his symptoms. As the patient remained hemodynamically unstable, I did feel that cardioversion was indicated. Case was discussed, and patient states that he does not want CPR or intubation long-term, however if his heart did stop he would allow for a brief trial of CPR to potentially necessitate return to a normal rhythm. Decision was made to sedate with propofol, he was sedated and then successfully cardioverted with synchronized 120 J. He tolerated this well and was cardioverted to a sinus rate in the 60s. Unfortunately blood pressure did not change immediately post cardioversion. 160 mics of phenylephrine were administered IV. This did bring his blood pressure up to the 120s. Will reach out to [facility] cardiology for further discussion. 1:45 PM Discussed the case with Dr. Jacobo of cardiology, he agreed with the EKGs, and the need for cardioversion. After discussion with electrophysiology they too felt that this was a right bundle branch block with an underlying a flutter. The remainder the patient's laboratory workup is returned, no white count, hemoglobin stable, platelets normal, electrolytes stable. Renal function excellent. Troponin normal, proBNP only slightly elevated at 1500, procalcitonin less than 0.1. Thyroid function normal. Urinalysis negative for infection. Chest x-ray does not show evidence of pneumonia. In fact of the old infiltrate that he has appears to be improved. No obvious pleural effusions. Symptoms appear inconsistent at this time with septic shock. I am concerned with cardiogenic shock. Limited bedside ultrasound demonstrates a notably dilated right ventricle, left ventricle demonstrates ejection fraction around 30% on my review. No pericardial tamponade that I can assess. Because of the patient's persistent hypotension, we did transition to starting Levophed, right central line was placed. He is on Eliquis and so I doubt PE as a cause for his shock. His inferior vena cava was initially around 1.2 cm, we did give an additional 250 cc bolus, we did start him on Levophed. He had no significant improvement in his blood pressure, initially we went from 5 and then transition to 10 and are currently at 20. I am concerned for potential cardiogenic shock. I did reach out to [facility] again, discussed the case with Dr. Jacobo, he agrees on the need for transfer. He accepts the patient under Dr. Hazel. Patient will be transferred via [facility]. Patient confirms that he does not want to be intubated. I have extensively reviewed the treatment plan with the patient. I have addressed all patient concerns at this time. I have also discussed the plan with the admitting physician and they agree with the current assessment and plan and have agreed to assume responsibility for the patient. All parties demonstrate verbal understanding and agreement with our assessment and plan at this time. The documentation in this chart was dictated using [employer] dictation software. Please excuse any dictation errors. Quality:SDOH Health Related Social Needs: Health related social needs material hardship, transpo insecurity, personal safety Critical Care Time Critical Care Time Critical Care Time: Yes Total Critical Care Time: 100 Attestation: Upon my evaluation, this patient had a high probability of imminent or life-threatening deterioration, which required my direct attention, intervention, and personal management. I have personally provided 100 minutes of critical care time exclusive of time spent on separately billable procedures. Time includes review of laboratory data, radiology results, discussion with consultants, and monitoring for potential decompensation. Interventions were performed as documented. PFSH All Active Problems (Updated 09/17/23 @ 13:57 by Edward Macias DO) Atrial flutter (Acute) Cardiogenic shock (Acute) Iatrogenic hypotension (Acute) Atrial flutter (Acute) Acute on chronic heart failure with preserved ejection fraction (HFpEF) (Acute) Diabetes (Chronic) Nicotine dependence, cigarettes, uncomplicated (Acute) Chronic respiratory failure with hypercapnia (Acute) Advanced care planning/counseling discussion (Acute) Palliative care patient (Acute) Elevated troponin I level (Acute) Chronic heart failure with preserved ejection fraction (HFpEF) (Acute) Cor pulmonale (chronic) (Acute) Acute respiratory failure with hypoxia and hypercarbia (Acute) Right upper quadrant abdominal pain (Acute) Chronic back pain (Acute) Gram-negative bacteremia (Acute) COPD exacerbation (Acute) Acute on chronic respiratory failure with hypoxia and hypercapnia (Acute) COPD (chronic obstructive pulmonary disease) (Chronic) Suicide ideation (Acute) Seborrheic dermatitis (Acute) Sleep apnea (Acute) Depression (Chronic) Supplemental oxygen dependent (Acute) Medical History Pneumonia Acute hypoxemic respiratory failure Respiratory insufficiency Hallucinations Headache COVID-19 Altered mental status Septic shock Right bundle branch block Elevated troponin Elevated LFTs MICHAEL (acute kidney injury) Hyperkalemia Lactic acidosis COVID Respiratory failure with hypoxia and hypercapnia Hypoxemia Tobacco dependence Obesity Incontinence of urine HTN (hypertension) Hypertension Tobacco abuse Bipolar 1 disorder Diabetes Obstructive sleep apnea Obesity (BMI 30-39.9) Hyperlipidemia Schizophrenia Family History Other Adopted Social History Smoking/Tobacco Use Status: Current every day Tobacco Type: cigarettes Smoking packs per day: 0 Smoking cigarettes per day: 0.0 Years smoked: 30 Smoking pack-years: 0.00 Tobacco: How many years used: 30 Smoking risk assessment performed?: Yes Alcohol Intake: former Drug use: Never Substance use type: does not use Caregiver/Support person: No Household members: none Housing: snf Number of Children: 0 Communication Needs: Hard of Hearing and Corrective Lenses Education Level: high school Do you need help understanding health information?: Always current occupation: disabled due to mental illness Pets and animals: No Current gender identity: male What is your relationship status?: never How often do you talk on the phone with friends or family?: never How often do you get together with friends or relatives?: never Panel score (0-1 are the most socially isolated patients): 0 What type of physical activity do you participate in: none and sedentary lifestyle Frequency: does not exercise Special mannie needs: No Seatbelt use: always Do you feel safe at home: No Do you feel safe in your relationship?: Yes Additional Social history: Pt states he is not taken care of at his INTERMEDIATE POCUS Exam (ED) Limited Cardiac Exam DATE OF EXAM: 09/17/23 TIME OF EXAM: 16:05 PROVIDER THAT PERFORMED THE STUDY: Edward Macias IS THIS A REPEAT EXAM DURING THIS ENCOUNTER: no REASON FOR EXAM: Evaluation of LV function and Hypotension VISUALIZED STRUCTURES: Left atrium, Left ventricle, Right ventricle and Interventricular septum VIEW OBTAINED: Parasternal long-axis PERTINENT FINDINGS/IMPRESSION: IVC inspiratory collapsability, LV dysfunction, RV dilation and RV dysfunction Exam complete
[2023-09-17 11:16] LABS: Abs Immature Grans 0.06 10^3/uL (0.0-0.06); Absolute Basophil Count 0.02 10^3/uL (0.0-0.2); Absolute Eosinophil Count 0.08 10^3/uL (0.0-0.7); Absolute Lymphocyte Count 1.56 10^3/uL (1.2-3.4); Absolute Monocyte Count 0.78 10^3/uL (0.1-0.8); Absolute Neutrophil Count 4.99 10^3/uL (1.2-6.7); Basophils % 0.3 %; Eosinophils % 1.1 %; HCT 49.2 % (40.0-50.0); HGB 15.4 g/dL (13.5-17.5); Immature Grans % 0.8 %; Lymphocytes % 20.8 %; MCH 31.2 pg (27.0-33.0); MCHC 31.3 % (32.0-36.0); MCV 100 fL (80-95); Monocytes % 10.4 %; Neutrophils % 66.6 %; Platelet Count 229 10^3/uL (130-400); RBC 4.93 10^6/uL (4.36-5.78); RDW 17.4 % (11.8-14.1); RDW-SD 62.4 fL; WBC 7.49 10^3/uL (4.4-10.8)
--- NOTE | 2023-09-17 11:21 | DI.RAD_ITS ---
Exam(s) XR PORTABLE CHEST AP EXAM: XR PORTABLE CHEST AP CLINICAL HISTORY: afib, sob. TECHNIQUE: 2D digital imaging was performed. COMPARISON: CT CT CHEST LUNG CANCER SCREEN from 07/15/2023 CR XR PORTABLE CHEST AP from 07/21/2023 FINDINGS: Single AP portable view. Chest leads in place. Cardiomegaly again noted. Mediastinum is not widened. Mild increased more lung markings bilaterally although may be exaggerated by some motion artifact here. No air bronchograms identified. No pleur al effusions. No Mike B lines. There is slight prominence of the right pulmonary artery. Previously present infiltrate in the left lower lobe seen on 07/21/2023 appears improved and there are no obvious pleural effusions. IMPRESSION: As above. I note that this patient had a small pericardial effusion on the prior chest CT scan of . There is also some prominence of the lower right main pulmonary artery. If there is suspicion for pulmonary embolus than CT scan of pulmonary embolus protocol can be perform ed. This would also be able to determine if the pericardial thickening has increased from the prior CT scan of 07/15/2023. DATA REPOSITORY: RADIATION DOSE DELIVERED:
[2023-09-17 11:31] LABS: INR 1.3 (0.9-1.1); Prothrombin Time 12.9 sec (9.1-11.1)
[2023-09-17 11:45] LABS: ALT 19 U/L (16-63); AST 14 U/L (15-37); Albumin 3.1 g/dL (3.4-5.0); Alkaline Phosphatase 66 U/L (46-116); Anion Gap 1.2 mmol/L (3-11); BUN 17 mg/dL (7-18); Bilirubin, Total 0.43 mg/dL (0.2-1.0); CO2 40.8 mmol/L (21.0-32.0); CREATININE 0.9 mg/dL (0.70-1.30); Calcium 8.2 mg/dL (8.5-10.1); Chloride 100 mmol/L (98-107); Estimated GFR 96.57 (mL/min/1.73m2); Glucose 119 mg/dL (74-106); NT-proBNP 1589 pg/mL (<300); Potassium 4.6 mmol/L (3.5-5.1); Sodium 142 mmol/L (136-145); TSH (W/Ref FT4) 0.72 uIU/mL (0.36-3.74); Total Protein 5.9 g/dL (6.4-8.2); Troponin I < 50 ng/L (< or =60)
--- NOTE | 2023-09-17 11:45 | RT.EKG_ITS ---
APPROVED REPORT Exam: Resting ECG Reason for Exam: Post Cardio Version Patient Location: E HR:88 bpm ECG Measurements Heart Rate 88 AXIS GA 149 P 60 QRSd 155 QRS 80 QT 375 T -44 QTc 453 Conclusion Sinus rhythm...normal P axis, V-rate 60- 99 Left atrial enlargement...P, P'>60mS, <-0.15mV V1 Right bundle branch block...QRSd>120, terminal axis(90,270) I have reviewed and interpreted ECG and agree with software generated interpretation.
--- NOTE | 2023-09-17 11:45 | RT.EKG_ITS ---
APPROVED REPORT Exam: Resting ECG Reason for Exam: Chest Pain Patient Location: E HR:131 bpm ECG Measurements Heart Rate 131 AXIS NE 54 P 0 QRSd 146 QRS -108 QT 375 T -64 QTc 553 Conclusion Sinus tachycardia...rate> 99 Right bundle branch block...QRSd>120, terminal axis(90,270) Physician: RBBB, concern for underlying aflutter with 2:1 conduction
[2023-09-17] MEDS: Phenylephrine 800 MCG/10 ML SYR 160 MCG IVP (11:59)
[2023-09-17] MEDS: Norepinephrine in D5W 8 MG/250 ML BAG 9.375 MG IV (12:20)
[2023-09-17] MEDS: Normal Saline 1,000 ML 30 ML IV (12:20)
[2023-09-17 12:46] LABS: Magnesium 1.8 mg/dL (1.8-2.4)
[2023-09-17 12:55] LABS: Bilirubin Negative (Negative); Blood Negative (Negative); Clarity Clear (Clear); Glucose >=1000 mg/dL (Negative); Ketones Negative (Negative); Leukocyte Esterase Negative (Negative); Nitrite Negative (Negative); Urobilinogen 0.2 mg/dL (Up to 0.2); pH 6.5 (5-8)
--- NOTE | 2023-09-17 13:00 | DI.RAD_ITS ---
Exam(s) XR PORTABLE CHEST AP POST LINE EXAM: XR PORTABLE CHEST AP POST LINE CLINICAL HISTORY: post central line. TECHNIQUE: 2D digital imaging was performed. COMPARISON: CR XR PORTABLE CHEST AP from 09/17/2023 FINDINGS: Single AP portable view. Cardiomegaly again noted. The distal tip of the newly placed right jugular central line is in the lo wer SVC. There is no mediastinal widening. Prominence of right lower lobe pulmonary artery again noted. Also slightly increased markings in the right lower lobe. Mild vascular congestion noted. IMPRESSION: As above. DATA REPOSITORY: RADIATION DOSE DELIVERED:
[2023-09-17] MEDS: Hydrocortisone SOD SUC. 100 MG VIAL (13:04)
[2023-09-17] MEDS: Propofol 200 MG/20 ML VIAL 100 MG IVP (13:19)
[2023-09-17 13:25] LABS: Procalcitonin < 0.1 ng/mL
--- NOTE | 2023-09-17 13:45 | RT.EKG_ITS ---
APPROVED REPORT Exam: Resting ECG Reason for Exam: Chest Pain Patient Location: E HR:50 bpm ECG Measurements Heart Rate 50 AXIS [place] 148 P 76 QRSd 144 QRS 79 QT 415 T 257 QTc 380 Conclusion Sinus bradycardia...rate< 60 Right bundle branch block...QRSd>120, terminal axis(90,270) Abnormal T, consider ischemia, lateral leads...T <-0.20mV, I aVL V5 V6 Physician: RBBB, sinus rhythm
[2023-09-17] MEDS: Lidocaine 2% Jelly 6 ML SYR (14:04)
--- NOTE | 2023-09-19 19:10 | RESPIRATORY ---
09/17/23 Assisted with conscience sedation, this RT and another RT. Pt began to desat and was placed on NRB with jaw-thrust and nasal trumpet inserted by MD Macias. Pt BVM ventilated until SPO2 increased from the lowest seen of 68% to the high 90%s. Pt was then placed back on NRB with nasal trumpet and observed by RT until pt awoke and nasal trumpet was removed and nasal cannula was placed on pt. Suction, BVM, oral/nasal airways ready at bedside.
== END 2023-09-17 14:54 | disposition short-term general hospital (02) ==
PROVIDERS: Emergency Provider Student in an Organized Health Care Education/Training Program; PCP Nurse Practitioner Family
DX: R57.0 Cardiogenic shock (principal); I48.92 Unspecified atrial flutter; R07.9 Chest pain, unspecified; R06.02 Shortness of breath; J44.9 Chronic obstructive pulmonary disease, unspecified; Z99.81 Dependence on supplemental oxygen; I11.0 Hypertensive heart disease with heart failure; I50.30 Unspecified diastolic (congestive) heart failure; I45.10 Unspecified right bundle-branch block; E11.9 Type 2 diabetes mellitus without complications; E78.00 Pure hypercholesterolemia, unspecified; F32.A Depression, unspecified; G47.33 Obstructive sleep apnea (adult) (pediatric); Z79.01 Long term (current) use of anticoagulants; Z79.899 Other long term (current) drug therapy; Z79.84 Long term (current) use of oral hypoglycemic drugs; F17.210 Nicotine dependence, cigarettes, uncomplicated
CPT/HCPCS: 36556; 51702; 71045; 80053; 84145; 92960; 93005; 93308; 96365; 96366; 99152; 99291; 99292; 81003; 81015; 83735; 83880; 84443; 84484; 85025; 85610; 85730; 93010; J1250; J1720; J2371; J2704